=== PATIENT | female | born 1980 | race African-American/Black ===

== ENCOUNTER 2018-03-27 08:22 | Emergency (ER) | payer SELFPAY ==
[2018-03-27] MEDS ORDERED: HYDROCODONE/CHLORPHEN 5 ML/OSYR ONE (08:56)
[2018-03-27 09:11] LABS: Urine Blood 3+ (NEG); Urine Glucose NEGATIVE (NEG); Urine Protein NEGATIVE (NEG)
--- NOTE | 2018-03-27 09:44 | ER ---
Nurse's Notes [facility] Name: Rosa M Magallanes Age: 37 yrs Sex: Female : 1980 Arrival Date: 03/27/2018 Time: 08:25 Bed 15 Private MD: None, None Diagnosis: Acute bronchitis, unspecified Presentation: 03/27 08:30 Presenting complaint: Patient states: productive cough, nasal congestion, mild headache ss with dizziness and ear aches that began 1.5 weeks ago. Pt denies fever. Transition of care: patient was not received from another setting of care. Onset of symptoms. Risk Assessment: Do you want to hurt yourself or someone else? Patient reports no desire to harm self or others. Initial Sepsis Screen: Does the patient meet any 2 criteria? No. Patient's initial sepsis screen is negative. Does the patient have a suspected source of infection? No. Patient's initial sepsis screen is negative. Care prior to arrival: None. 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 - Social history:: Smoking status: Patient uses tobacco products, denies chronic smoking, but will smoke occasionally. - Ebola Screening: : Patient denies exposure to infectious person Patient denies travel to an Ebola-affected area in the 21 days before illness onset. Screenin:30 Abuse screen: Denies threats or abuse. Nutritional screening: No deficits noted. rb1 Tuberculosis screening: No symptoms or risk factors identified. Fall Risk None identified. Assessment: 08:30 General: Appears uncomfortable, Behavior is calm, cooperative, Reports feeling ill for rb1 Denies fever. Pain: Complains of pain in sore throat Pain currently is 0 out of 10 on a pain scale. Pain began 1.5 weeks ago. Pt. only has pain in her ribs while coughing. Neuro: Level of Consciousness is awake, alert, obeys commands, Oriented to person, place, time, situation. Cardiovascular: Capillary refill < 3 seconds is brisk in bilateral fingers. Respiratory: Reports cough that is productive, green Airway is patent Respiratory effort is even, unlabored, Respiratory pattern is regular, symmetrical. GI: Reports diarrhea, nausea, vomiting, since x 2 days. : No signs and/or symptoms were reported regarding the genitourinary system. EENT: Reports nasal congestion since 1.5 weeks. Derm: Skin is dry, Skin is normal, Skin temperature is warm. 09:30 Reassessment: Patient appears in no apparent distress at this time. No changes from rb1 previously documented assessment. Family at bedside. 10:14 Reassessment: Patient appears in no apparent distress at this time. Patient and/or rb1 family updated on plan of care and expected duration. Pain level reassessed. Patient is alert, oriented x 3, equal unlabored respirations, skin warm/dry/pink. Vital Signs: 08:32 BP 142 / 101; Pulse 90; Resp 17; Temp 98.8(O); Pulse Ox 100% on R/A; Weight 71.67 kg; ss Height 5 ft. 4 in. (162.56 cm); Pain 0/10; 08:46 BP 136 / 94; Pulse 90; Resp 17; Pulse Ox 100% on R/A; rb1 09:46 BP 125 / 96; Pulse 83; Resp 19; Pulse Ox 99% on R/A; rb1 08:32 Body Mass Index 27.12 (71.67 kg, 162.56 cm) ED Course: 08:25 Patient arrived in ED. sb2 08:25 None, None is Private Physician. sb2 08:26 Willam Alcantar PA is PHCP. cp 08:29 Chris Bansal MD is Attending Physician. cp 08:30 Patient has correct armband on for positive identification. Bed in low position. Call rb1 light in reach. Side rails up X 1. Pulse ox on. NIBP on. 08:31 Triage completed. ss 08:32 Nenita Díaz, RN is Primary Nurse. rb1 08:32 Arm band placed on right wrist. ss 08:53 Flu and/or RSV swab sent to lab. Strep swab sent to lab. dh3 09:07 Urine collected: clean catch specimen, clear. dh3 11:28 No provider procedures requiring assistance completed. Patient did not have IV access rb1 during this emergency room visit. Administered Medications: 09:15 Drug: Tussionex Pennkinetic ER 5 ml Route: PO; rb1 Outcome: 09:44 Discharge ordered by . cp 10:16 Patient left the ED. rb1 10:16 Discharged to home ambulatory, with family. rb1 10:16 Condition: stable 10:16 Discharge instructions given to patient, Instructed on discharge instructions, follow up and referral plans. medication usage, Demonstrated understanding of instructions, follow-up care, medications, Prescriptions given X 3. Signatures: Marisel Capone, RN RN ss Willam Alcantar, KELLIE PA Nenita Casarez, RN RN rb1 Vani Wick 3 Deedee Mcgarry 2
--- NOTE | 2018-03-27 09:44 | EDPHYS ---
Physician Documentation [facility] Name: Rosa M Magallanes Age: 37 yrs Sex: Female : 1980 Arrival Date: 03/27/2018 Time: 08:25 Bed 15 Private MD: None, None ED Physician Chris Bansal HPI: 03/27 08:40 This 37 yrs old Black Female presents to ER via Ambulatory with complaints of Flu cp Symptoms. 08:40 The patient or guardian reports cough, described as moderate, with productive sputum. cp 08:40 Onset: The symptoms/episode began/occurred 1.5 week(s) ago. Associated signs and cp symptoms: Pertinent positives: chest pain, with cough, earache, sore throat, headache. Severity of symptoms: in the emergency department the symptoms are unchanged despite home interventions. 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 - Social history:: Smoking status: Patient uses tobacco products, denies chronic smoking, but will smoke occasionally. - Ebola Screening: : Patient denies exposure to infectious person Patient denies travel to an Ebola-affected area in the 21 days before illness onset. ROS: 08:40 Eyes: Negative for injury, pain, redness, and discharge. cp 08:40 Constitutional: Negative for body aches, chills, fever, poor PO intake. 08:40 ENT: Positive for ear pain, sinus congestion, sore throat, Negative for drainage from ear(s), difficulty swallowing, difficulty handling secretions. 08:40 Neck: Negative for pain with movement, pain at rest, stiffness, tenderness. 08:40 Cardiovascular: Negative for chest pain. 08:40 Respiratory: Positive for cough, Negative for shortness of breath, wheezing. 08:40 Abdomen/GI: Negative for abdominal pain, nausea, vomiting, and diarrhea. 08:40 : Negative for urinary symptoms. 08:40 Skin: Negative for cellulitis, rash. 08:40 Neuro: Positive for headache, Negative for altered mental status, weakness. 08:40 All other systems are negative. Exam: 08:52 Constitutional: The patient appears in no acute distress, alert, awake, non-toxic, well cp developed, well nourished. 08:52 Head/Face: Normocephalic, atraumatic. cp 08:52 Eyes: Periorbital structures: appear normal, Conjunctiva: normal, no exudate, no injection, Sclera: no appreciated abnormality, Lids and lashes: appear normal, bilaterally. 08:52 ENT: External ear(s): are unremarkable, Ear canal(s): are normal, clear, TM's: bulging, is not appreciated, bilaterally, erythema, that is mild, bilaterally, Nose: is normal, Posterior pharynx: is normal, airway is patent, no erythema, no exudate. 08:52 Neck: ROM/movement: is normal, is supple, without pain, no range of motions limitations, no meningismus, no nuchal rigidity. 08:52 Chest/axilla: Inspection: normal, Palpation: is normal, no crepitus, no tenderness. 08:52 Cardiovascular: Rate: normal, Rhythm: regular. 08:52 Respiratory: the patient does not display signs of respiratory distress, Respirations: normal, no use of accessory muscles, no retractions, no splinting, no tachypnea, labored breathing, is not present, Breath sounds: bronchial sounds, that are mild, are heard diffusely, stridor, is not appreciated, + upper airway congestion. wheezing: is not appreciated. 08:52 Abdomen/GI: Exam negative for discomfort, distension, guarding, Inspection: abdomen appears normal. 08:52 Skin: cellulitis, is not appreciated, no rash present. Vital Signs: 08:32 BP 142 / 101; Pulse 90; Resp 17; Temp 98.8(O); Pulse Ox 100% on R/A; Weight 71.67 kg; ss Height 5 ft. 4 in. (162.56 cm); Pain 0/10; 08:46 BP 136 / 94; Pulse 90; Resp 17; Pulse Ox 100% on R/A; rb1 09:46 BP 125 / 96; Pulse 83; Resp 19; Pulse Ox 99% on R/A; rb1 08:32 Body Mass Index 27.12 (71.67 kg, 162.56 cm) ss MDM: 08:33 Patient medically screened. cp 09:00 Differential diagnosis: bronchitis, flu, URI, pneumonia, strep throat, otitis media. cp 09:44 Data reviewed: vital signs, nurses notes, lab test result(s), and as a result, I will cp discharge patient. 09:44 Counseling: I had a detailed discussion with the patient and/or guardian regarding: the cp historical points, exam findings, and any diagnostic results supporting the discharge/admit diagnosis, lab results, to return to the emergency department if symptoms worsen or persist or if there are any questions or concerns that arise at home. Response to treatment: the patient's symptoms have markedly improved after treatment, and as a result, I will discharge patient. 03/27 08:39 Order name: Strep; Complete Time: 09:43 cp 03/27 08:39 Order name: Influenza Screen (a \T\ B); Complete Time: 09:43 cp 03/27 09:08 Order name: Urine Dipstick--Ancillary (enter results); Complete Time: 09:43 eb 03/27 09:43 Interpretation: Normal except: UBLD 3+; UESTR TRACE. cp 03/27 09:08 Order name: Urine --Ancillary (enter results); Complete Time: 09:43 eb 03/27 09:13 Order name: Throat Culture EDOH 03/27 08:39 Order name: Urine Dipstick-Ancillary (obtain specimen); Complete Time: 09:08 cp 03/27 08:39 Order name: Urine Test (obtain specimen); Complete Time: 09:08 cp Administered Medications: 09:15 Drug: Tussionex Pennkinetic ER 5 ml Route: PO; rb1 Disposition: 13:00 Co-signature as Attending Physician, Chris Bansal MD. rn Disposition: 03/27/18 09:44 Discharged to Home. Impression: Acute bronchitis, unspecified. - Condition is Stable. - Discharge Instructions: Acute Bronchitis, Adult. - Prescriptions for Tessalon Perles 100 mg Oral Capsule - take 1 capsule by ORAL route every 8 hours As needed; 15 capsule. Zithromax Z- Carlos 250 mg Oral Tablet - take 1 tablet by ORAL route as directed for 5 days Day 1 - take two (2) tablets one time. Day 2, 3, 4 , 5 take one (1) tablet once daily.; 6 tablet. Albuterol Sulfate 90 mcg/actuation - inhale 1-2 puff by INHALATION route every 4-6 hours; 1 Inhaler. - Medication Reconciliation Form, Thank You Letter, Antibiotic Education, Prescription Opioid Use form. - Follow up: Private Physician; When: 2 - 3 days; Reason: Recheck today's complaints. - Problem is new. - Symptoms have improved. Signatures: Dispatcher [employer] EDMS Chris Bansal MD MD rn Smirch, Shelby, RN RN ss Willam Alcantar PA PA cp Nenita Díaz RN RN rb1 Corrections: (The following items were deleted from the chart) 10:16 09:44 03/27/2018 09:44 Discharged to Home. Impression: Acute bronchitis, unspecified. rb1 Condition is Stable. Forms are Medication Reconciliation Form, Thank You Letter, Antibiotic Education, Prescription Opioid Use. Follow up: Private Physician; When: 2 - 3 days; Reason: Recheck today's complaints. Problem is new. Symptoms have improved. cp
[2018-03-27 10:22] VITALS: TEMP 98.8; O2SAT 100
[2018-03-27 10:23] VITALS: BP 136/94
== END 2018-03-27 10:16 | disposition home or self-care (01) ==
LOC: ER 08:22
DX: J20.9 Acute bronchitis, unspecified (principal); I10 Essential (primary) hypertension; Z91.048 Other nonmedicinal substance allergy status
CPT/HCPCS: 81003; 81025; 87070; 87081; 87804; 99284

== ENCOUNTER 2018-06-30 10:54 | Emergency (ER) | payer SELFPAY ==
--- NOTE | 2018-06-30 11:49 | EDPHYS ---
Physician Documentation [facility] Name: Rosa M Magallanes Age: 38 yrs Sex: Female : 1980 Arrival Date: 06/30/2018 Time: 10:58 Bed 24 Private MD: None, None ED Physician Guerrero Benavides HPI: 06/30 11:27 This 38 yrs old Black Female presents to ER via Ambulatory with complaints of Sinus gs Congestion. 11:27 The patient or guardian reports sinus congestion drainage. Onset: The symptoms/episode gs began/occurred 3 day(s) ago. Severity of symptoms: At their worst the symptoms were moderate, in the emergency department the symptoms are unchanged. Modifying factors: The symptoms are alleviated by nothing, the symptoms are aggravated by nothing. Associated signs and symptoms: Pertinent positives: fever. The patient has experienced similar episodes in the past, several times. 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 - Social history:: Smoking status: Patient uses tobacco products, denies chronic smoking, but will smoke occasionally. - Ebola Screening: : Patient denies exposure to infectious person Patient denies travel to an Ebola-affected area in the 21 days before illness onset. ROS: 11:43 All other systems are negative. gs Exam: 11:43 Head/Face: Normocephalic, atraumatic. Eyes: Pupils equal round and reactive to light, gs extra-ocular motions intact. Lids and lashes normal. Conjunctiva and sclera are non-icteric and not injected. Cornea within normal limits. Periorbital areas with no swelling, redness, or edema. Neck: Trachea midline, no thyromegaly or masses palpated, and no cervical lymphadenopathy. Supple, full range of motion without nuchal rigidity, or vertebral point tenderness. No Meningismus. Chest/axilla: Normal chest wall appearance and motion. Nontender with no deformity. No lesions are appreciated. Cardiovascular: Regular rate and rhythm with a normal S1 and S2. No gallops, murmurs, or rubs. Normal PMI, no JVD. No pulse deficits. Respiratory: Lungs have equal breath sounds bilaterally, clear to auscultation and percussion. No rales, rhonchi or wheezes noted. No increased work of breathing, no retractions or nasal flaring. Abdomen/GI: Soft, non-tender, with normal bowel sounds. No distension or tympany. No guarding or rebound. No evidence of tenderness throughout. Back: No spinal tenderness. No costovertebral tenderness. Full range of motion. MS/ Extremity: Pulses equal, no cyanosis. Neurovascular intact. Full, normal range of motion. Neuro: Awake and alert, GCS 15, oriented to person, place, time, and situation. Cranial nerves II-XII grossly intact. Motor strength 5/5 in all extremities. Sensory grossly intact. Cerebellar exam normal. Normal gait. 11:43 Constitutional: The patient appears alert, awake, non-toxic. 11:43 ENT: TM's: are normal, Nose: Nasal mucosa: edematous, erythematous, nasal drainage, and is seen coming from both nares, that is green. 11:43 Skin: lesion(s), diffuse epithelial sarcoid. 11:49 Head/face: Sinus tenderness, that is moderate, is located over the right maxillary gs sinus and left maxillary sinus. 11:49 ENT: Nose: Vital Signs: 11:20 BP 132 / 89; Pulse 82; Resp 17; Temp 98.5(TE); Pulse Ox 100% on R/A; Weight 68.49 kg; ss Height 5 ft. 4 in. (162.56 cm); Pain 6/10; 11:20 Body Mass Index 25.92 (68.49 kg, 162.56 cm) MDM: 11:26 Patient medically screened. gs 11:43 Differential Diagnosis: Upper Respiratory Infection Sinusitis. Data reviewed: vital gs signs, nurses notes. 11:49 ED course: abx given for sinusitis in immunocompromised pt. gs Administered Medications: No medications were administered Disposition: 18 11:48 Discharged to Home. Impression: Acute sinusitis. - Condition is Stable. - Discharge Instructions: Sinusitis, Adult. - Prescriptions for Ceftin 500 mg Oral Tablet - take 1 tablet by ORAL route every 12 hours for 10 days; 20 tablet. - Medication Reconciliation Form, Thank You Letter, Antibiotic Education, Prescription Opioid Use form. - Follow up: Verito Wick MD; When: 2 - 3 days; Reason: Re-evaluation by your physician. Signatures: Cece Conley RN RN iw Marisel Capone RN RN ss Guerrero Benavides MD MD gs Corrections: (The following items were deleted from the chart) 11:55 11:48 06/30/2018 11:48 Discharged to Home. Impression: Acute sinusitis. Condition is iw Stable. Forms are Medication Reconciliation Form, Thank You Letter, Antibiotic Education, Prescription Opioid Use. Follow up: Verito Wick; When: 2 - 3 days; Reason: Re-evaluation by your physician. gs
--- NOTE | 2018-06-30 11:49 | ER ---
Nurse's Notes [facility] Name: Rosa M Magallanes Age: 38 yrs Sex: Female : 1980 Arrival Date: 06/30/2018 Time: 10:58 Bed 24 Private MD: None, None Diagnosis: Acute sinusitis Presentation: 06/30 11:21 Presenting complaint: Patient states: "I always have sinus problems, but now I think ss it's staph or something because I have greenish-yellow drainage with a little blood in it that just drains" denies fever. Transition of care: patient was not received from another setting of care. Onset of symptoms is unknown. Risk Assessment: Do you want to hurt yourself or someone else? Patient reports no desire to harm self or others. Initial Sepsis Screen: Does the patient meet any 2 criteria? No. Patient's initial sepsis screen is negative. Does the patient have a suspected source of infection? No. Patient's initial sepsis screen is negative. Care prior to arrival: None. 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 - Social history:: Smoking status: Patient uses tobacco products, denies chronic smoking, but will smoke occasionally. - Ebola Screening: : Patient denies exposure to infectious person Patient denies travel to an Ebola-affected area in the 21 days before illness onset. Screenin:40 Abuse screen: Denies threats or abuse. Denies injuries from another. Nutritional iw screening: No deficits noted. Tuberculosis screening: No symptoms or risk factors identified. Fall Risk None identified. Assessment: 11:40 General: Appears in no apparent distress. Behavior is calm, cooperative. Pain: iw Complains of pain in face. Neuro: Level of Consciousness is awake, alert, obeys commands, Oriented to person, place, time, situation, Moves all extremities. Full function. EENT: Reports nasal congestion nasal discharge. Musculoskeletal: Range of motion: intact in all extremities. Vital Signs: 11:20 BP 132 / 89; Pulse 82; Resp 17; Temp 98.5(TE); Pulse Ox 100% on R/A; Weight 68.49 kg; Height 5 ft. 4 in. (162.56 cm); Pain 6/10; 11:20 Body Mass Index 25.92 (68.49 kg, 162.56 cm) ED Course: 10:58 Patient arrived in ED. mr 10:58 None, None is Private Physician. mr 11:15 Guerrero Benavides MD is Attending Physician. gs 11:20 Arm band placed on right wrist. ss 11:22 Triage completed. ss 11:40 Cece Conley, RN is Primary Nurse. iw 11:40 Patient has correct armband on for positive identification. iw 11:40 No provider procedures requiring assistance completed. Patient did not have IV access iw during this emergency room visit. 11:48 Verito Wick MD is Referral Physician. gs Administered Medications: No medications were administered Outcome: 11:48 Discharge ordered by . gs 11:54 Discharged to home ambulatory, with family. iw 11:54 Condition: good 11:54 Discharge instructions given to patient, Instructed on discharge instructions, follow up and referral plans. medication usage, Demonstrated understanding of instructions, follow-up care, medications, Prescriptions given X 1. 11:55 Patient left the ED. iw Signatures: Lyndsey Mcghee mr Cece Conley, RN ARY Marisel Capone RN RN Guerrero Benavides MD MD gs
[2018-06-30 12:49] VITALS: BP 132/89; TEMP 98.5; O2SAT 100
== END 2018-06-30 11:55 | disposition home or self-care (01) ==
LOC: ER 10:54
DX: J01.90 Acute sinusitis, unspecified (principal); I10 Essential (primary) hypertension; Z72.0 Tobacco use; Z91.048 Other nonmedicinal substance allergy status
CPT/HCPCS: 99282

== ENCOUNTER 2018-09-27 08:55 | Emergency (ER) | payer SELFPAY ==
[2018-09-27 09:35] LABS: Urine Blood 3+ (NEG); Urine Glucose NEGATIVE (NEG); Urine Protein 2+ (NEG)
[2018-09-27] MEDS ORDERED: FLUCONAZOLE 100 MG TAB ONE (10:02)
[2018-09-27 10:17] LABS: Urine RBC >50 /HPF (NONE SEEN)
[2018-09-27 10:22] LABS: Urine Bacteria 20-50 /HPF (<20); Urine Culture Reflex Order NOT NEEDED
[2018-09-27] MEDS ORDERED: CEFTRIAXONE 250 MG/VIAL ONE (11:02)
[2018-09-27] MEDS ORDERED: LIDOCAINE 1% MPF 2 ML AMPULE ONE (11:02)
[2018-09-27] MEDS ORDERED: AZITHROMYCIN 250 MG TAB ONE (11:02)
--- NOTE | 2018-09-27 11:19 | ER ---
Nurse's Notes [facility] Name: Rosa M Magallanes Age: 38 yrs Sex: Female : 1980 Arrival Date: 09/27/2018 Time: 08:58 Bed 7 Private MD: None, None Diagnosis: Abdominal and pelvic pain;Vaginitis, vulvitis and vulvovaginitis in diseases classified elsewhere;Urinary tract infection, site not specified Presentation: 09/27 09:06 Presenting complaint: Patient states: pain to the middle of my stomach that radiates ch into my lady parts for over a month. about 4 days ago my lady parts started hurting, and itching. yesterday there was some blood, and my stomach hurts and the pain is like a stabbing pain from the middle of my stomach into my lady parts, so I thought I would get it checked today. 09:06 Transition of care: patient was not received from another setting of care. Onset of ch symptoms was August 2018. Risk Assessment: Do you want to hurt yourself or someone else? Patient reports no desire to harm self or others. Initial Sepsis Screen: Does the patient meet any 2 criteria? No. Patient's initial sepsis screen is negative. Does the patient have a suspected source of infection? No. Patient's initial sepsis screen is negative. Care prior to arrival: None. 09:06 Method Of Arrival: Ambulatory 09:06 Acuity: EUGENIA 3 ch Triage Assessment: 09:06 General: Appears in no apparent distress. comfortable, Behavior is calm, cooperative, ch appropriate for age. Pain: Complains of pain in abdomen, vaginal opening and suprapubic area Pain currently is 6 out of 10 on a pain scale. Pain began gradually, one month ago. GI: Abdomen is round non-distended, Bowel sounds present X 4 quads. Abd is soft and non tender X 4 quads. Reports lower abdominal pain. : Reports cramping, pain vaginal itching, vaginal bleeding that is. 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 - Social history:: Smoking status: Patient uses tobacco products, denies chronic smoking, but will smoke occasionally, Patient uses alcohol, on a daily basis. Patient/guardian denies using street drugs. - Ebola Screening: : Patient negative for fever greater than or equal to 101.5 degrees Fahrenheit, and additional compatible Ebola Virus Disease symptoms Patient denies exposure to infectious person Patient denies travel to an Ebola-affected area in the 21 days before illness onset No symptoms or risks identified at this time. Screenin:26 Abuse screen: Denies threats or abuse. Denies injuries from another. Nutritional ch screening: No deficits noted. Tuberculosis screening: No symptoms or risk factors identified. Fall Risk None identified. Assessment: 09:26 General: Appears in no apparent distress. comfortable, Behavior is calm, cooperative, ch appropriate for age. 10:53 Reassessment: Patient appears in no apparent distress at this time. No changes from previously documented assessment. Patient and/or family updated on plan of care and expected duration. Pain level reassessed. Patient is alert, oriented x 3, equal unlabored respirations, skin warm/dry/pink. 11:19 Reassessment: Patient appears in no apparent distress at this time. Patient and/or family updated on plan of care and expected duration. Pain level reassessed. Patient is alert, oriented x 3, equal unlabored respirations, skin warm/dry/pink. Patient states feeling better. Patient states symptoms have improved. Vital Signs: 09:06 BP 118 / 88; Pulse 84; Resp 16; Temp 98.2; Pulse Ox 100% on R/A; Weight 70.76 kg; Height 5 ft. 4 in. (162.56 cm); Pain 6/10; 10:53 BP 122 / 78; Pulse 74; Resp 18; Temp 98.3; Pulse Ox 99% on R/A; Pain 6/10; ch 11:27 BP 118 / 88; Pulse 71; Resp 16; Temp 98.3; Pulse Ox 99% on R/A; Pain 5/10; ch 09:06 Body Mass Index 26.78 (70.76 kg, 162.56 cm) ED Course: 08:58 Patient arrived in ED. mr 08:58 None, None is Private Physician. mr 09:06 Arm band placed on left wrist. Patient placed in an exam room, on a stretcher. 09:07 Yahir Lira PA is PHCP. [facility] 09:07 Chris Bansal MD is Attending Physician. [facility] 09:17 Elsie Byrne, RN is Primary Nurse. 09:19 Triage completed. 09:21 Urine collected: clean catch specimen, cloudy, skye colored. jb1 09:26 Patient has correct armband on for positive identification. Placed in gown. Bed in low ch position. Call light in reach. Side rails up X 1. Adult w/ patient. Pulse ox on. NIBP on. Warm blanket given. 10:53 Assist provider with pelvic exam: Set up pelvic tray. Performed by Yahir HOPKINS Specimens sent to lab. Patient tolerated well. 11:18 Rebecca Sandoval MD is Referral Physician. [facility] 11:27 Patient did not have IV access during this emergency room visit. ch Administered Medications: 10:00 Drug: DiFLUcan 150 mg Route: PO; 11:26 Follow up: Response: No adverse reaction 11:00 Drug: Rocephin (cefTRIAXone) 250 mg Route: IM; Site: right ventrogluteal; 11:26 Follow up: Response: No adverse reaction 11:18 Drug: AZITHromycin 1 grams Route: PO; 11:26 Follow up: Response: No adverse reaction Outcome: 11:18 Discharge ordered by MD. [facility] 11:27 Discharged to home ambulatory, with family. 11:27 Condition: improved 11:27 Discharge instructions given to patient, family, Instructed on discharge instructions, follow up and referral plans. medication usage, Demonstrated understanding of instructions, follow-up care, medications, Prescriptions given X 1. 11:28 Patient left the ED. Signatures: Marco Jean-Baptiste jb1 Elsie Byrne, RN RN Yahir Lira PA PA jmm Lyndsey Mcghee mr
--- NOTE | 2018-09-27 11:19 | EDPHYS ---
Physician Documentation [facility] Name: Rosa M Magallanes Age: 38 yrs Sex: Female : 1980 Arrival Date: 09/27/2018 Time: 08:58 Bed 7 Private MD: None, None ED Physician Chris Bansal HPI: 09/27 09:10 This 38 yrs old Black Female presents to ER via Ambulatory with complaints of Vaginal jmm Itching, Abdominal Pain. 09:10 The patient presents with pelvic pain, vaginal discharge. Onset: The symptoms/episode jmm began/occurred gradually, 2 month(s) ago. Modifying factors: The symptoms are alleviated by nothing, the symptoms are aggravated by nothing. This is a 38 year old female with a history of htn, sarcoidosis that presents to the ED with complaints of pelvic pain over the past 2 months ago. Saw pcp with us showing ovarian cysts. Patient complaints of dysuria and vaginal itching with discharge. . 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 - Social history:: Smoking status: Patient uses tobacco products, denies chronic smoking, but will smoke occasionally, Patient uses alcohol, on a daily basis. Patient/guardian denies using street drugs. - Ebola Screening: : Patient negative for fever greater than or equal to 101.5 degrees Fahrenheit, and additional compatible Ebola Virus Disease symptoms Patient denies exposure to infectious person Patient denies travel to an Ebola-affected area in the 21 days before illness onset No symptoms or risks identified at this time. ROS: 11:14 Constitutional: Negative for fever, chills, and weight loss, Cardiovascular: Negative jmm for chest pain, palpitations, and edema, Respiratory: Negative for shortness of breath, cough, wheezing, and pleuritic chest pain. 11:14 : Positive for urinary symptoms, pelvic pain, vaginal discharge, vaginal itching. 11:14 All other systems are negative. Exam: 11:14 Constitutional: This is a well developed, well nourished patient who is awake, alert, jmm and in no acute distress. Head/Face: atraumatic. Eyes: EOMI, no conjunctival erythema appreciated ENT: Moist Mucus Membranes Neck: Trachea midline, Supple Chest/axilla: Normal chest wall appearance and motion. Cardiovascular: Regular rate and rhythm. No edema appreciated Respiratory: Normal respirations, no respiratory distress appreciated 11:14 Skin: General appearance color normal MS/ Extremity: Moves all extremities, no obvious deformities appreciated, no edema noted to the lower extremities Neuro: Awake and alert, normal gait Psych: Behavior is normal, Mood is normal, Patient is cooperative and pleasant 11:14 Abdomen/GI: Inspection: abdomen appears normal, Palpation: soft, mild abdominal tenderness, in the suprapubic area, voluntary guarding, is not appreciated, involuntary guarding, is not appreciated, Indicators: McBurney's point is not tender, Rovsing's sign is negative, suprapubic tenderness on palpation. 11:14 Back: CVA tenderness, is absent. 11:14 : Pelvic Exam: External exam: is normal, Speculum exam: os that is closed, bimanual exam reveals no cervical motion tenderness, os that is closed, no adnexa tenderness or masses bilaterally. Vital Signs: 09:06 BP 118 / 88; Pulse 84; Resp 16; Temp 98.2; Pulse Ox 100% on R/A; Weight 70.76 kg; ch Height 5 ft. 4 in. (162.56 cm); Pain 6/10; 10:53 BP 122 / 78; Pulse 74; Resp 18; Temp 98.3; Pulse Ox 99% on R/A; Pain 6/10; ch 11:27 BP 118 / 88; Pulse 71; Resp 16; Temp 98.3; Pulse Ox 99% on R/A; Pain 5/10; ch 09:06 Body Mass Index 26.78 (70.76 kg, 162.56 cm) ch MDM: 09:28 Patient medically screened. [facility] 11:14 Data reviewed: vital signs, nurses notes. Counseling: I had a detailed discussion with deepa the patient and/or guardian regarding: the historical points, exam findings, and any diagnostic results supporting the discharge/admit diagnosis, lab results. ED course: Bimanual exam normal. Patient treated with empiric antibiotics due to symptomatology. Patient advised to follow up with obgyn, otherwise advised to return to the ED if she develops worsening symptoms. Patient understood and agrees with the plan of care. . 09/27 09:21 Order name: Urine Culture banner 09/27 09:21 Order name: Urine Microscopic Only; Complete Time: 10:28 banner 09/27 09:23 Order name: Urine Dipstick--Ancillary (enter results); Complete Time: 09:37 09/27 09:23 Order name: Urine --Ancillary (enter results); Complete Time: 09:37 09/27 10:17 Order name: Wet Prep [facility] 09/27 10:17 Order name: GC (GONORR/CHLAMYDIA) Probe [facility] 09/27 09:10 Order name: Urine Dipstick-Ancillary (obtain specimen); Complete Time: 09:21 [facility] 09/27 09:10 Order name: Urine Test (obtain specimen); Complete Time: 09:21 [facility] 09/27 09:52 Order name: Pelvic Exam Setup; Complete Time: 11:19 [facility] Administered Medications: 10:00 Drug: DiFLUcan 150 mg Route: PO; ch 11:26 Follow up: Response: No adverse reaction 11:00 Drug: Rocephin (cefTRIAXone) 250 mg Route: IM; Site: right ventrogluteal; ch 11:26 Follow up: Response: No adverse reaction 11:18 Drug: AZITHromycin 1 grams Route: PO; ch 11:26 Follow up: Response: No adverse reaction Disposition: 14:26 Co-signature as Attending Physician, Chris Bansal MD. rn Disposition: 09/27/18 11:18 Discharged to Home. Impression: Abdominal and pelvic pain, Vaginitis, vulvitis and vulvovaginitis in diseases classified elsewhere, Urinary tract infection, site not specified. - Condition is Stable. - Discharge Instructions: Pelvic Pain, Female, Urinary Tract Infection, Adult. - Prescriptions for Cephalexin 500 mg Oral Capsule - take 1 capsule by ORAL route every 12 hours for 10 days; 20 capsule. - Medication Reconciliation Form, Thank You Letter, Antibiotic Education, Prescription Opioid Use form. - Follow up: Rebecca Sandoval MD; When: 2 - 3 days; Reason: Recheck today's complaints, Continuance of care, Re-evaluation by your physician. Signatures: Dispatcher [employer] Elsie Valladares, RN RN ch Yahir Lira PA PA [facility] Chris Bansal MD MD corner bead operator: (The following items were deleted from the chart) 11:14 09:10 This is a 38 year old female with a history of htn, sarcoidosis that presents to [facility] the ED with complaints of pelvic pain over the past 2 months ago. Saw pcp with us showing ovarian cysts. Patient complaints of . [facility] 11:28 11:18 09/27/2018 11:18 Discharged to Home. Impression: Abdominal and pelvic pain; ch Vaginitis, vulvitis and vulvovaginitis in diseases classified elsewhere; Urinary tract infection, site not specified. Condition is Stable. Forms are Medication Reconciliation Form, Thank You Letter, Antibiotic Education, Prescription Opioid Use. Follow up: Mini Rekhi; When: 2 - 3 days; Reason: Recheck today's complaints, Continuance of care, Re-evaluation by your physician. [facility]
[2018-09-27 11:33] VITALS: TEMP 98.3; O2SAT 99
[2018-09-27 11:34] VITALS: BP 118/88
[2018-09-30 05:30] LABS: C.trachomatis RNA,TMA Not Detected (Not Detected)
== END 2018-09-27 11:28 | disposition home or self-care (01) ==
LOC: ER 08:55
DX: N76.0 Acute vaginitis (principal); N39.0 Urinary tract infection, site not specified; Z88.8 Allergy status to other drugs, medicaments and biological substances; I10 Essential (primary) hypertension
CPT/HCPCS: 81003; 81015; 81025; 87086; 87088; 87210; 87490; 87590; 96372; 99284; J0696; J2001

== ENCOUNTER 2018-12-17 15:08 | Emergency (ER) | payer SELFPAY ==
--- NOTE | 2018-12-17 16:17 | EDPHYS ---
Physician Documentation [facility] Name: Rosa M Magallanes Age: 38 yrs Sex: Female : 1980 Arrival Date: 12/17/2018 Time: 15:12 Bed 18 Private MD: Unknown, Unknown ED Physician Chris Bansal HPI: 12/17 16:11 This 38 yrs old Black Female presents to ER via Ambulatory with complaints of KNOT ON rn EYE/STOMACH. 16:11 The patient is experiencing pain, The patient sustained None. to the left eye. Onset: rn The symptoms/episode began/occurred 2.5 week(s) ago. Duration: the symptoms are continuous. Aggravated by rubbing, Alleviated by nothing. Severity of symptoms: At their worst the symptoms were mild in the emergency department the symptoms are unchanged. The patient has not experienced similar symptoms in the past. Reports has sarcoidosis, has noticed what looks like a stye to left upper eyelid, began 2.5 weeks ago, no trauma, no vision problems, reports took some abx ointment from friend without improvement. Has poked it with a needle and didn't see an improvement. Also reports noticed a knot to her stomach around the same time, no abd surgeries, no vomiting, no fever, is having bowel movements without blood.. 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 - Family history:: not pertinent. - Social history:: Smoking status: Patient/guardian denies using tobacco. - Ebola Screening: : Patient negative for fever greater than or equal to 101.5 degrees Fahrenheit, and additional compatible Ebola Virus Disease symptoms Patient denies exposure to infectious person Patient denies travel to an Ebola-affected area in the 21 days before illness onset No symptoms or risks identified at this time. - Hospitalizations: : No recent hospitalization is reported. ROS: 16:11 Constitutional: Negative for fever, chills, and weight loss, Eyes: Negative for injury, rn redness, and discharge, Cardiovascular: Negative for chest pain, palpitations, and edema, Respiratory: Negative for shortness of breath, cough, wheezing, and pleuritic chest pain, Abdomen/GI: Negative for nausea, vomiting, diarrhea MS/Extremity: Negative for injury and deformity, Skin: Negative for injury, rash, and discoloration, Neuro: Negative for headache, weakness, numbness, tingling, and seizure. Exam: 16:11 Constitutional: This is a well developed, well nourished patient who is awake, alert, rn and in no acute distress. Head/Face: Normocephalic, atraumatic. Eyes: Left upper outer eyelid with swelling, no drainage or corneal problems. Abdomen/GI: soft, non-tender, + right periumbilical small reducible hernia without skin changes. Vital Signs: 15:28 BP 114 / 75; Pulse 104; Resp 18; Temp 97.9(O); Pulse Ox 100% on R/A; Weight 71.67 kg; hj Height 5 ft. 4 in. (162.56 cm); Pain 4/10; 15:28 Body Mass Index 27.12 (71.67 kg, 162.56 cm) hj MDM: 15:55 Patient medically screened. rn 16:11 Differential diagnosis: stye, eyelid mass, hernia. Data reviewed: vital signs, nurses rn notes, and as a result, I will discharge patient. Counseling: I had a detailed discussion with the patient and/or guardian regarding: the historical points, exam findings, and any diagnostic results supporting the discharge/admit diagnosis, the need for outpatient follow up, to return to the emergency department if symptoms worsen or persist or if there are any questions or concerns that arise at home. Special discussion: I discussed with the patient/guardian in detail that at this point there is no indication for admission to the hospital. It is understood, however, that if the symptoms persist or worsen the patient needs to return immediately for re-evaluation. Based on the history and exam findings, there is no indication for further emergent testing or inpatient evaluation. I discussed with the patient/guardian the need to see the general surgeon for further evaluation of the symptoms. I discussed with the patient/guardian the need to see the opthamologist for further evaluation of the symptoms. ED course: Recommended to stop poking eyelid mass with needle and f/u with ophtho for that, as well as general surgery for hernia. . Administered Medications: No medications were administered Disposition: 12/17/18 16:16 Discharged to Home. Impression: Umbilical hernia without obstruction or gangrene. - Condition is Stable. - Discharge Instructions: Hernia, Adult. - Medication Reconciliation Form, Thank You Letter, Antibiotic Education, Prescription Opioid Use form. - Follow up: Private Physician; When: As needed; Reason: Recheck today's complaints, Re-evaluation by your physician. - Problem is new. - Symptoms have improved. Signatures: Wilma Brooks RN RN aj Nieto, Roman, MD MD rn Joaquin, Henry, RN RN Corrections: (The following items were deleted from the chart) 16:21 16:16 12/17/2018 16:16 Discharged to Home. Impression: Umbilical hernia without aj obstruction or gangrene. Condition is Stable. Forms are Medication Reconciliation Form, Thank You Letter, Antibiotic Education, Prescription Opioid Use. Follow up: Private Physician; When: As needed; Reason: Recheck today's complaints, Re-evaluation by your physician. Problem is new. Symptoms have improved. rn
--- NOTE | 2018-12-17 16:17 | ER ---
Nurse's Notes [facility] Name: Rosa M Magallanes Age: 38 yrs Sex: Female : 1980 Arrival Date: 12/17/2018 Time: 15:12 Bed 18 Private MD: Unknown, Unknown Diagnosis: Umbilical hernia without obstruction or gangrene Presentation: 12/17 15:26 Presenting complaint: Patient states: i have a know on my L eye for about 2 weeks now; hj denies discharges, denies fever and chill; reports a knot on her abdomen;. Transition of care: patient was not received from another setting of care. Onset of symptoms was December 17, 2018. Risk Assessment: Do you want to hurt yourself or someone else? Patient reports no desire to harm self or others. Initial Sepsis Screen: Does the patient meet any 2 criteria? No. Patient's initial sepsis screen is negative. Does the patient have a suspected source of infection? No. Patient's initial sepsis screen is negative. Care prior to arrival: None. 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 - Family history:: not pertinent. - Social history:: Smoking status: Patient/guardian denies using tobacco. - Ebola Screening: : Patient negative for fever greater than or equal to 101.5 degrees Fahrenheit, and additional compatible Ebola Virus Disease symptoms Patient denies exposure to infectious person Patient denies travel to an Ebola-affected area in the 21 days before illness onset No symptoms or risks identified at this time. - Hospitalizations: : No recent hospitalization is reported. Screenin:19 Abuse screen: Denies threats or abuse. Denies injuries from another. Nutritional aj screening: No deficits noted. Tuberculosis screening: No symptoms or risk factors identified. Fall Risk None identified. Assessment: 16:19 General: Appears in no apparent distress. comfortable, Behavior is calm, cooperative, aj appropriate for age. Pain: Denies pain. Neuro: Level of Consciousness is awake, alert, obeys commands, Oriented to person, place, time, situation, Appropriate for age. Respiratory: Airway is patent Respiratory effort is even, unlabored, Respiratory pattern is regular, symmetrical. Derm: Skin is intact, is healthy with good turgor, Skin is pink, warm \T\ dry. normal. Vital Signs: 15:28 BP 114 / 75; Pulse 104; Resp 18; Temp 97.9(O); Pulse Ox 100% on R/A; Weight 71.67 kg; hj Height 5 ft. 4 in. (162.56 cm); Pain 4/10; 15:28 Body Mass Index 27.12 (71.67 kg, 162.56 cm) ED Course: 15:12 Patient arrived in ED. ag5 15:13 Unknown, Unknown is Private Physician. ag5 15:28 Triage completed. hj 15:28 Arm band placed on right wrist. hj 15:55 Chris Bansal MD is Attending Physician. rn 16:19 Wilma Brooks RN is Primary Nurse. aj 16:19 Patient has correct armband on for positive identification. aj 16:19 No provider procedures requiring assistance completed. Patient did not have IV access aj during this emergency room visit. Administered Medications: No medications were administered Outcome: 16:16 Discharge ordered by . rn 16:19 Discharged to home ambulatory. aj 16:19 Condition: good 16:19 Discharge instructions given to patient, Instructed on discharge instructions, follow up and referral plans. Demonstrated understanding of instructions, follow-up care. 16:21 Patient left the ED. aj Signatures: Wilma Brooks, RN Chris Murillo MD MD rn Joaquin, Henry, RN RN hj Gaskin, Ajare [facility] Corrections: (The following items were deleted from the chart) 15:30 15:28 Pulse 104bpm; Resp 18bpm; Pulse Ox 100% RA; Temp 97.9F Oral; 71.67 kg; Height 5 hj ft. 4 in.; BMI: 27.1; Pain 4/10;
[2018-12-17 16:36] VITALS: BP 114/75; TEMP 97.9; O2SAT 100
== END 2018-12-17 16:21 | disposition home or self-care (01) ==
LOC: ER 15:08
DX: H57.12 Ocular pain, left eye (principal); K42.9 Umbilical hernia without obstruction or gangrene; I10 Essential (primary) hypertension; Z91.048 Other nonmedicinal substance allergy status
CPT/HCPCS: 99281

== ENCOUNTER 2019-02-06 15:17 | Emergency (ER) | payer SELFPAY ==
[2019-02-06 16:45] LABS: Absolute Lymphocytes (CBC) 1.1 K/uL (0.7-4.9); Basophils % 0.4 % (0-1.3); Hematocrit 31.8 % (36.0-45.0); Lymphocytes % 17.4 % (15.3-44.8); MPV 8.4 fL (7.6-11.3); RBC Red Blood Cell Count 4.46 M/uL (3.86-4.86)
--- NOTE | 2019-02-06 16:46 | RAD REPORT ---
EXAM DESCRIPTION: CT - Abdomen Pelvis Wo Contrast - 02/06/2019 4:28 pm CLINICAL HISTORY: Right upper quadrant pain, shortness of breath, sarcoidosis COMPARISON: None. TECHNIQUE: Axial [address] imaging of the abdomen and pelvis was performed without IV contrast. No IV contrast was given because of allergy, abnormal renal function, patient refusal or physician re quest. No oral contrast administered. All CT scans are performed using dose optimization technique as appropriate and may include automated exposure control or mA/KV adjustment according to patient size. FINDINGS: Interstitial thickening and stranding present in both lung bases, worse on the right. No c ardiomegaly or pericardial effusion. No pleural effusion. Hepatomegaly is present with a 29 centimeter craniocaudal length of the liver. Subtle nodularity of t he liver capsule seen. No focal liver lesions seen on noncontrast imaging. Splenomegaly is present to 23 cm. No focal splenic lesion on noncontrast imaging. No pancreatic abnormality suspected. Detail is limited due to the mass effect of the liver and spleen and the absence of contrast. Multiple small gallstones are present. Active gallbladder disease is not suspected. No biliary tree d ilatation. No hydronephrosis or suspicious renal mass. Bilateral nonobstructing calyx calculi are present. No pe rinephric stranding. No significant adrenal finding. Isodense renal masses and pyelonephritis cannot be excluded in the absence of IV contrast. The urinary bladder is without significant finding. No gastric dilatation or gastric wall thickening. No dilated bowel loops. No free air or pneumatosis. Trace free fluid in the pelvis within physiologic limits. Uterus and ovaries show no suspicious find ings. No mass or bulky lymphadenopathy otherwise noted. There is a small fat only umbilical hernia pr esent. No suspicious bony findings. IMPRESSION: Pronounced hepatosplenomegaly with the liver 29 cm in craniocaudal dimension in the sple en 23 cm. No focal parenchymal finding on noncontrast imaging. Nonobstructing renal calculi with no hydronephrosis or acute renal finding. No acute GI process seen. Cholelithiasis without evidence for active gallbladder disease. Full assessment is limited is the absence of IV contrast.
[2019-02-06] MEDS ORDERED: MORPHINE 4 MG/ML SYR ONE (16:59)
[2019-02-06] MEDS ORDERED: NA CHLORIDE 0.9% 1,000 ML ONE (16:59)
[2019-02-06] MEDS ORDERED: ONDANSETRON 4 MG/2 ML VIAL ONE (17:00)
[2019-02-06 17:21] LABS: Urine Blood 3+ (NEG); Urine Glucose NEGATIVE (NEG); Urine Protein 2+ (NEG)
[2019-02-06 17:25] LABS: Urine Bacteria <20 /HPF (<20); Urine RBC >50 /HPF (NONE SEEN)
[2019-02-06 17:26] LABS: Calcium Oxalate Crystals- Ur MANY (NONE SEEN); Urine Culture Reflex Order NOT NEEDED
[2019-02-06 17:38] LABS: Albumin 2.2 g/dL (3.4-5.0); Bilirubin Direct 0.4 mg/dL (0-0.2); Bilirubin Total 0.5 mg/dL (0.2-1.0); Potassium 3.9 mmol/L (3.5-5.1); Protein, Total 7.2 g/dL (6.4-8.2)
--- NOTE | 2019-02-06 18:19 | ER ---
Nurse's Notes [facility] Name: Rosa M Magallanes Age: 38 yrs Sex: Female : 1980 Arrival Date: 02/06/2019 Time: 15:17 Bed 25 Private MD: Diagnosis: Cholelithiasis Presentation: 02/06 15:24 Presenting complaint: Patient states: R lateral chest and RUQ pain that began 1 week ss ago. Pt also reports mild swelling to the affected area. Also c/o shortness of breath. Transition of care: patient was not received from another setting of care. Onset of symptoms was January 29, 2019. Risk Assessment: Do you want to hurt yourself or someone else? Patient reports no desire to harm self or others. Initial Sepsis Screen: Does the patient meet any 2 criteria? No. Patient's initial sepsis screen is negative. Does the patient have a suspected source of infection? No. Patient's initial sepsis screen is negative. Care prior to arrival: None. 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 - Social history:: Smoking status: Patient uses tobacco products, denies chronic smoking, but will smoke occasionally. - Ebola Screening: : Patient denies exposure to infectious person Patient denies travel to an Ebola-affected area in the 21 days before illness onset. Screenin:20 Abuse screen: Denies threats or abuse. Denies injuries from another. Nutritional rv screening: No deficits noted. Tuberculosis screening: No symptoms or risk factors identified. Fall Risk None identified. Assessment: 18:00 General: Appears in no apparent distress. uncomfortable, Behavior is calm, cooperative. rv 18:00 Pain: Complains of pain in right lateral anterior chest. Neuro: Level of Consciousness rv is awake, alert, obeys commands, Oriented to person, place, time, situation. Cardiovascular: Patient's skin is warm and dry. Respiratory: Airway is patent. GI: No signs and/or symptoms were reported involving the gastrointestinal system. : No signs and/or symptoms were reported regarding the genitourinary system. EENT: No signs and/or symptoms were reported regarding the EENT system. Derm: Skin is intact. Musculoskeletal: No signs and/or symptoms reported regarding the musculoskeletal system. Vital Signs: 15:26 BP 142 / 89; Pulse 115; Resp 17; Temp 98.7(TE); Pulse Ox 99% on R/A; Weight 66.22 kg; ss Height 5 ft. 4 in. (162.56 cm); Pain 0/10; 18:18 BP 115 / 88; Pulse 93; Resp 16; Temp 98.5; Pulse Ox 100% on R/A; rv 15:26 Body Mass Index 25.06 (66.22 kg, 162.56 cm) ED Course: 15:17 Patient arrived in ED. as 15:25 Triage completed. ss 15:26 Arm band placed on right wrist. ss 15:50 Fernando Spencer, ARY is Primary Nurse. rv 16:00 Merlin Conrad NP is PHCP. pm1 16:00 Willam Starks MD is Attending Physician. pm1 16:28 CT completed. Patient tolerated procedure well. Patient moved to CT via wheelchair. Patient moved back from CT. 16:29 CT Abd/Pelvis - Without Contrast In Process Unspecified. EDMS 17:00 Patient has correct armband on for positive identification. Placed in gown. Bed in low rv position. Call light in reach. Side rails up X 1. 17:00 Pulse ox on. NIBP on. rv 17:30 No provider procedures requiring assistance completed. Inserted saline lock: 20 gauge rv in right antecubital area, using aseptic technique. Blood collected. 18:17 Andrea Jones MD is Referral Physician. pm1 18:17 Simran Love MD is Referral Physician. pm1 18:34 IV discontinued, intact, bleeding controlled, No redness/swelling at site. Pressure rv dressing applied. Administered Medications: 16:45 Drug: NS 0.9% 1000 ml Route: IV; Rate: 1000 ml; Site: right antecubital; rv 18:17 Follow up: IV Status: Completed infusion; IV Intake: 1000ml rv 16:45 Drug: morphine 4 mg Route: IVP; Site: right antecubital; rv 18:17 Follow up: Response: No adverse reaction; Pain is decreased rv 16:45 Drug: Zofran 4 mg Route: IVP; Site: right antecubital; rv 18:17 Follow up: Response: No adverse reaction rv 18:30 Drug: TORadol 30 mg Route: IVP; Site: right antecubital; rv 18:35 Follow up: Response: Medication administered at discharge. rv Intake: 18:17 IV: 1000ml; Total: 1000ml. rv Outcome: 18:17 Discharge ordered by MD. pm1 18:32 Discharged to home ambulatory, with friend. rv 18:32 Condition: good 18:32 Discharge instructions given to patient, Instructed on discharge instructions, follow up and referral plans. medication usage, Demonstrated understanding of instructions, follow-up care, medications, Prescriptions given X 2. 18:35 Patient left the ED. rv Signatures: Dispatcher [employer] EDMS Sandro Reyes Amelia as Smirch, Shelby, RN RN ss Merlin Conrad, JENI ONION TOPPER pm1 Fernando Spencer RN RN rv Corrections: (The following items were deleted from the chart) 15:27 15:24 Presenting complaint: Patient states: R lateral chest and RUQ pain that began 1 ss week ago. Pt also reports mild swelling to the affected area. ss 15:27 15:24 Acuity: EUGENIA 3 ss ss 17:27 15:45 NS 0.9% 1000 ml IV at 1000 ml in right antecubital rv rv
--- NOTE | 2019-02-06 18:19 | EDPHYS ---
Physician Documentation [facility] Name: RosaM Magallanes Age: 38 yrs Sex: Female : 1980 Arrival Date: 02/06/2019 Time: 15:17 Bed 25 Private MD: ED Physician Willam Starks HPI: 02/06 16:29 This 38 yrs old Black Female presents to ER via Ambulatory with complaints of Rib Pain. pm1 16:29 The patient presents with abdominal pain in the right upper quadrant, right lateral rib pm1 area. Onset: The symptoms/episode began/occurred 1 week(s) ago. The symptoms do not radiate. Associated signs and symptoms: Pertinent positives: No shortness of breath present, she has pain with deep breathing, Pertinent negatives: nausea, vomiting, and diarrhea, chest pain, dysuria, fever, shortness of breath. The symptoms are described as achy. Modifying factors: The symptoms are alleviated by nothing, the symptoms are aggravated by breathing deeply, food, touching the area. Severity of pain: in the emergency department the pain is unchanged. The patient has not experienced similar symptoms in the past. The patient has not recently seen a physician. 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 - Social history:: Smoking status: Patient uses tobacco products, denies chronic smoking, but will smoke occasionally. - Ebola Screening: : Patient denies exposure to infectious person Patient denies travel to an Ebola-affected area in the 21 days before illness onset. ROS: 16:29 Constitutional: Negative for fever, chills, and weight loss, Eyes: Negative for injury, pm1 pain, redness, and discharge, Neck: Negative for injury, pain, and swelling, Cardiovascular: Negative for chest pain, palpitations, and edema, Respiratory: Negative for shortness of breath, cough, wheezing, and pleuritic chest pain. 16:29 Back: Negative for injury and pain, MS/Extremity: Negative for injury and deformity, Skin: Negative for injury, rash, and discoloration, Neuro: Negative for headache, weakness, numbness, tingling, and seizure. 16:29 Abdomen/GI: Positive for abdominal pain, of the right upper quadrant, Negative for nausea, vomiting, and diarrhea. Exam: 16:29 Constitutional: This is a well developed, well nourished patient who is awake, alert, pm1 and in no acute distress. Head/Face: Normocephalic, atraumatic. Chest/axilla: Normal chest wall appearance and motion. Nontender with no deformity. No lesions are appreciated. Cardiovascular: Regular rate and rhythm with a normal S1 and S2. No gallops, murmurs, or rubs. Normal PMI, no JVD. No pulse deficits. Respiratory: Lungs have equal breath sounds bilaterally, clear to auscultation and percussion. No rales, rhonchi or wheezes noted. No increased work of breathing, no retractions or nasal flaring. 16:29 Back: No spinal tenderness. No costovertebral tenderness. Full range of motion. Skin: Warm, dry with normal turgor. Normal color with no rashes, no lesions, and no evidence of cellulitis. MS/ Extremity: Pulses equal, no cyanosis. Neurovascular intact. Full, normal range of motion. 16:29 Abdomen/GI: Inspection: abdomen appears normal, Bowel sounds: normal, Palpation: mild abdominal tenderness, in the right upper quadrant, mass, is not appreciated, rebound tenderness, is not appreciated. 16:29 Neuro: Orientation: is normal, Motor: is normal, moves all fours. Vital Signs: 15:26 BP 142 / 89; Pulse 115; Resp 17; Temp 98.7(TE); Pulse Ox 99% on R/A; Weight 66.22 kg; ss Height 5 ft. 4 in. (162.56 cm); Pain 0/10; 18:18 BP 115 / 88; Pulse 93; Resp 16; Temp 98.5; Pulse Ox 100% on R/A; rv 15:26 Body Mass Index 25.06 (66.22 kg, 162.56 cm) MDM: 16:06 Patient medically screened. pm1 18:16 Data reviewed: vital signs. Data interpreted: Pulse oximetry: on room air is 99 %. pm1 Interpretation: normal. Counseling: I had a detailed discussion with the patient and/or guardian regarding: the historical points, exam findings, and any diagnostic results supporting the discharge/admit diagnosis, lab results, radiology results, the need for outpatient follow up, for definitive care, a general surgeon, a strip winder, a urologist, to return to the emergency department if symptoms worsen or persist or if there are any questions or concerns that arise at home. 02/06 16:14 Order name: Basic Metabolic Panel; Complete Time: 17:44 pm02/06 16:14 Order name: CBC with Diff; Complete Time: 16:49 pm1 02/06 16:14 Order name: Creatinine for Radiology; Complete Time: 17:02 pm1 02/06 16:14 Order name: Hepatic Function; Complete Time: 17:44 pm02/06 16:14 Order name: Lipase; Complete Time: 17:44 pm1 02/06 16:30 Order name: Urine Microscopic Only; Complete Time: 17:29 02/06 16:14 Order name: IV Saline Lock; Complete Time: 17:27 pm1 02/06 16:14 Order name: CT Abd/Pelvis - Without Contrast; Complete Time: 16:49 pm1 02/06 17:17 Order name: Urine Dipstick--Ancillary (enter results); Complete Time: 17:21 eb 02/06 17:17 Order name: Urine --Ancillary (enter results); Complete Time: 17:21 eb 02/06 16:14 Order name: Labs collected and sent; Complete Time: 17:27 pm02/06 16:14 Order name: Urine Dipstick-Ancillary (obtain specimen); Complete Time: 16:31 pm02/06 16:14 Order name: Urine Test (obtain specimen); Complete Time: 16:31 pm1 Administered Medications: 16:45 Drug: NS 0.9% 1000 ml Route: IV; Rate: 1000 ml; Site: right antecubital; rv 18:17 Follow up: IV Status: Completed infusion; IV Intake: 1000ml rv 16:45 Drug: morphine 4 mg Route: IVP; Site: right antecubital; rv 18:17 Follow up: Response: No adverse reaction; Pain is decreased rv 16:45 Drug: Zofran 4 mg Route: IVP; Site: right antecubital; rv 18:17 Follow up: Response: No adverse reaction rv 18:30 Drug: TORadol 30 mg Route: IVP; Site: right antecubital; rv 18:35 Follow up: Response: Medication administered at discharge. rv Disposition: 02/07 09:50 Co-signature as Attending Physician, Willam Starks MD I agree with the assessment and merrill plan of care. Disposition: 02/06/19 18:17 Discharged to Home. Impression: Cholelithiasis. - Condition is Stable. - Discharge Instructions: Cholelithiasis. - Prescriptions for Bentyl 20 mg Oral Tablet - take 1 tablet by ORAL route every 6 hours As needed; 20 tablet. Tylenol- Codeine #3 300-30 mg Oral Tablet - take 2 tablets by ORAL route every 6 hours As needed; 20 tablet. - Medication Reconciliation Form, Thank You Letter, Antibiotic Education, Prescription Opioid Use form. - Follow up: Emergency Department; When: As needed; Reason: Worsening of condition. Follow up: Andrea Jones MD; When: 2 - 3 days; Reason: Recheck today's complaints, Continuance of care, Re-evaluation by your physician. Follow up: Simran Love MD; When: 2 - 3 days; Reason: Recheck today's complaints, Continuance of care, Re-evaluation by your physician. - Problem is new. - Symptoms have improved. Signatures: Dispatcher [employer] EDWillam Schmidt MD MD cha Smirch, Shelby, RN RN ss Merlin Conrad, MATERIAL CONTROL ASSOCIATE MATERIAL CONTROL ASSOCIATE pm1 Fernando Spencer RN RN rv Corrections: (The following items were deleted from the chart) 02/06 18:35 18:17 02/06/2019 18:17 Discharged to Home. Impression: Cholelithiasis. Condition is rv Stable. Forms are Medication Reconciliation Form, Thank You Letter, Antibiotic Education, Prescription Opioid Use. Follow up: Emergency Department; When: As needed; Reason: Worsening of condition. Follow up: Andrea Jones; When: 2 - 3 days; Reason: Recheck today's complaints, Continuance of care, Re-evaluation by your physician. Follow up: Simran Love; When: 2 - 3 days; Reason: Recheck today's complaints, Continuance of care, Re-evaluation by your physician. Problem is new. Symptoms have improved. pm1
[2019-02-06] MEDS ORDERED: KETOROLAC 30 MG/ML INJ ONE (18:31)
[2019-02-06 19:51] VITALS: BP 115/88; TEMP 98.5; O2SAT 100
== END 2019-02-06 18:35 | disposition home or self-care (01) ==
LOC: ER 15:17
DX: K80.20 Calculus of gallbladder without cholecystitis without obstruction (principal); I10 Essential (primary) hypertension; Z88.8 Allergy status to other drugs, medicaments and biological substances; Z72.0 Tobacco use
CPT/HCPCS: 36415; 74176; 80048; 80076; 81003; 81015; 81025; 83690; 85025; 96361; 96374; 96375; 99284; J2405; J7030

== ENCOUNTER 2020-02-21 12:16 | Emergency (ER) | payer SELFPAY ==
--- OUTSIDE RECORDS SUMMARY | 2020-02-21 12:18 | XMS REPORT | Continuity of Care Document ---
:1980 Author Organization [facility] t Address [address] [place] [address] Care Team Providers Name Role Phone DR NEMO Attending Clinician Unavailable Scotty TELLEZ Attending Clinician DR NEMO Admitting Clinician Unavailable Problems This patient has no known problems. Allergies, Adverse Reactions, Alerts This patient has no known allergies or adverse reactions. Medications This patient has no known medications. Procedures This patient has no known procedures. Encounters Start End Encounter Admission Attending Care Care Encounter Source Date/Time Date/Time Type Type Clinicians Facility Department ID 2019-05-07 2019-05-07 Outpatient C NEMO [facility] [id number] [place] 12:04:00 23:59:00 [facility] 2019-03-21 2019-03-21 Emergency Scotty [facility] [id number] 06:46:08 09:09:00 [facility] [id number] [place] [id number] [place] [id number] Results Test Description Test Time Test Comments Results Result Comments Source CHEST 2 VIEW*GP* 2019-05-07 Exam: Chest x-ray 2 12:30:41 viewsHISTORY: SarcoidosisLocation: [id number]:The heart size is normal with diffuse interstitial prominence particularly inthe perihilar regions and lung bases likely representing changes ofsarcoidosis. No significant mediastinal or hilar lymphadenopathy. Possiblesmall 9.6 mm nodular density in the right lower lobe versus infiltrativeconsolid ation. Superimposed pneumonia in the right lower lobe cannot beexcluded. No prior exams available for comparison. Osseous structures areintact.Impression :1. Diffuse interstitial prominence with likely superimposed pneumonia in theright lower lobe and nodular consolidation versus pulmonary nodule. Ifresolution does not occur. CT recommended.
[2020-02-21 12:57] LABS: Absolute Lymphocytes (CBC) 1.6 K/uL (0.7-4.9); Hematocrit 30.7 % (36.0-45.0); Lymphocytes % 10.6 % (15.3-44.8); MPV 8.4 fL (7.6-11.3); RBC Red Blood Cell Count 4.19 M/uL (3.86-4.86)
[2020-02-21] MEDS ORDERED: ONDANSETRON 4 MG/2 ML VIAL ONE ×2 (13:04→15:50)
[2020-02-21] MEDS ORDERED: Ringers Lactate 1,000 ML IV ONE ×2 (13:04→14:35)
[2020-02-21 13:16] LABS: Albumin 2.3 g/dL (3.4-5.0); Bilirubin Direct 0.6 mg/dL (0-0.2); Bilirubin Total 0.8 mg/dL (0.2-1.0); Potassium 4.2 mmol/L (3.5-5.1); Protein, Total 7.5 g/dL (6.4-8.2)
[2020-02-21] MEDS ORDERED: DIPHENHYDRAMINE 50 MG/ML VIAL ONE (13:19)
[2020-02-21] MEDS ORDERED: METHYLPREDNISOLONE 125 MG INJ ONE (13:19)
[2020-02-21] MEDS ORDERED: ACETAMINOPHEN 500 MG TAB ONE (13:20)
[2020-02-21 13:42] LABS: Urine Bacteria >50 /HPF (<20); Urine Culture Reflex Order REFLEXED
--- NOTE | 2020-02-21 13:52 | RAD REPORT ---
EXAM DESCRIPTION: CT - Stone Protocol - 02/21/2020 1:42 pm CLINICAL HISTORY: Flank pain. ABD PAIN COMPARISON: <Comparisons> TECHNIQUE: Axial images were obtained without oral or IV contrast. Lack of contrast limits solid org an and vascular assessment. The [id number] spans the entirety of the system partially obscuring uppermost abdomen and lung bases. Coronal reformatted images were obtained and reviewed. All CT scans are performed using dose optimization technique as appropriate and may include automated exposure control or mA/KV adjustment according to patient size. FINDINGS: Linear scarring is present in both lower lobes. Significant hepatosplenomegaly.Cholelithiasis. The pancreas and adrenal glands are normal. No patholo gic lymphadenopathy in the abdomen or pelvis. Multiple stones are present in the calices of both kidneys, largest in the inferior right renal calyx measuring 12 mm. Several stones are present in the mid aspect of the right ureter, the largest measu ring 11 mm (740 HU) and resulting in moderate hydronephrosis. No bowel obstruction, free air, free fluid or abscess. Normal appendix noted. No significant bony abnormality. IMPRESSION: Bilateral nephrolithiasis is seen with several stones in the mid right ureter, largest m easuring 11 mm, resulting in moderate right hydronephrosis. Prominent hepatosplenomegaly. Cholelithiasis.
--- NOTE | 2020-02-21 14:34 | ER ---
Nurse's Notes [facility] Name: Rosa M Magallanes Age: 39 yrs Sex: Female : 1980 Arrival Date: 02/21/2020 Time: 12:18 Bed 14 Private MD: Diagnosis: Hydronephrosis with renal and ureteral calculous obstruction;Severe sepsis without septic shock;Acute kidney failure Presentation: 02/20 12:43 Chief complaint: Patient states: R flank pain, RLQ pain, N/V/D x 3 days. Coronavirus ks7 screen: Client denies travel out of the [place] in the last 14 days. At this time, the client does not indicate any symptoms associated with coronavirus-19. The client reports previous COVID testing was negative. Date of collection: February 10, 2020. Ebola Screen: Patient negative for fever greater than or equal to 101.5 degrees Fahrenheit, and additional compatible Ebola Virus Disease symptoms Patient denies exposure to infectious person. Patient denies travel to an Ebola-affected area in the 21 days before illness onset. Initial Sepsis Screen: Does the patient meet any 2 criteria? Temp <36.0*C (96.8*F)) or > 38.3*C (100.9*F). HR > 90 bpm. Does the patient have a suspected source of infection?. Risk Assessment: Do you want to hurt yourself or someone else? Patient reports no desire to harm self or others. Onset of symptoms was February 18, 2020. 12:43 Method Of Arrival: Ambulatory ks7 12:43 Acuity: EUGENIA 3 ks7 Triage Assessment: 12:47 General: Appears uncomfortable, ill, Behavior is cooperative. Pain: Complains of pain ks7 in abdomen, pelvis and back Pain currently is 8 out of 10 on a pain scale. Quality of pain is described as sharp, Pain began 2-3 days ago. GI: Abdomen is flat, non-distended, Bowel sounds present X 4 quads. Reports diarrhea, nausea, vomiting. 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 - Social history:: Smoking status: Patient denies any tobacco usage or history of. Screenin:49 Abuse screen: Denies threats or abuse. Denies injuries from another. Nutritional ks7 screening: No deficits noted. Tuberculosis screening: No symptoms or risk factors identified. Fall Risk None identified. 13:59 Sepsis Screening: . Infection: SIRS - Systemic Inflammatory Response Syndrome: 2 or ks7 more indicates positive screen: [temperature greater than or equal to 100.9F or less than or equal to 96.8F] [heart rate greater than 90 beats per minute]. 14:00 Sepsis Screening: SIRS - Systemic Inflammatory Response Syndrome: 2 or more indicates ks7 positive screen: [WBC greater than or equal to 12,000/mm3 or less than or equal to 4,000/mm3 or greater than 0.5 K/uL bands] Provider has been notified and patient further screened based on infection criteria. Assessment: 12:49 General: Appears uncomfortable, ill, Behavior is cooperative. GI: Abd is soft Abdomen ks7 is tender to palpation in R flank Reports nausea, vomiting. Vital Signs: 12:31 BP 113 / 84; Pulse 110; Resp 18; Temp 101.9; Pulse Ox 99% on R/A; Pain 8/10; ks7 12:43 Temp 101.9; ks7 13:15 BP 122 / 35; Pulse 141; Resp 20; Pulse Ox 100% on R/A; Pain 7/10; ks7 13:35 Pulse Ox 100% on R/A; Pain 5/10; ks7 13:35 Resp 18; Pulse Ox 100% on R/A; ks7 13:52 BP 109 / 71; Pulse 148; Resp 18; Temp 102.7(O); Pulse Ox 98% on R/A; Pain 5/10; ks7 14:36 BP 109 / 71; Pulse 134; Resp 18; Pulse Ox 100% on R/A; Pain 4/10; ks7 15:36 BP 97 / 63; Pulse 105; Resp 18; Temp 99.8; Pulse Ox 100% on R/A; Pain 7/10; ks7 ED Course: 12:18 Patient arrived in ED. ag5 12:19 Thuan Sanders PA is PHCP. jr8 12:19 Chris Bansal MD is Attending Physician. jr8 12:20 Jeanine Dubon RN is Primary Nurse. ks7 12:31 Arm band placed on right wrist. ks7 12:46 Triage completed. ks7 12:49 Resting quietly. ks7 12:49 Patient has correct armband on for positive identification. Placed in gown. Bed in low ks7 position. Call light in reach. Side rails up X2. 12:49 No provider procedures requiring assistance completed. Inserted saline lock: 20 gauge ks7 in left antecubital area, using aseptic technique. Blood collected. 12:51 Urine --Ancillary (enter results) Sent. ks7 12:51 Urine Dipstick--Ancillary (enter results) Sent. ks7 12:51 Urine Microscopic Only Sent. ks7 12:51 Basic Metabolic Panel Sent. ks7 12:52 Lipase Sent. ks7 13:15 LFT's Sent. ks7 13:15 CBC with Diff Sent. ks7 13:43 CT completed. Patient tolerated procedure well. Patient moved back from CT. bq 13:[address] ks7 13:52 Patient moved back from CT. ks7 15:47 Patient admitted, IV remains in place. Patient transferred, IV remains in place. ks7 Administered Medications: Discontinued: Ringers - Lactated Ringers Solution 1000 ml IV at calculated rate bolus Discontinued: Ringers - Lactated Ringers Solution 1000 ml IV at bolus bolus 12:58 Drug: Zofran (Ondansetron) 4 mg Route: IVP; Site: left antecubital; ks7 12:58 Drug: Ringers - Lactated Ringers Solution 1000 ml Route: IV; Rate: calculated rate; ks7 Site: left antecubital; 13:15 Drug: SOLU-Medrol 125 mg Route: IVP; Site: left antecubital; ks7 13:35 Follow up: Resp 18 bpm; Pulse Ox 100% RA ks7 13:15 Drug: Tylenol 1000 mg Route: PO; ks7 13:35 Follow up: Pulse Ox 100% RA; Pain 5/10 Adult ks7 13:35 Not Given (order cancelled d/t no contrast with CT): Benadryl 25 mg IVP once ks7 14:38 Drug: Ringers - Lactated Ringers Solution 1000 ml Route: IV; Rate: bolus; Site: left ks7 antecubital; 14:40 Drug: Rocephin 2 grams Route: IV; Rate: calculated rate; Site: left antecubital; ks7 15:45 Drug: Zofran (Ondansetron) 4 mg Route: IVP; Site: right antecubital; ks7 15:46 Drug: morphine 4 mg Route: IVP; Site: right antecubital; ks7 Outcome: 14:33 ER care complete, transfer ordered by . jr8 15:18 Transferred by ground EMS to [facility], Transfer form completed. 7 X-rays sent w/ patient. 15:18 Transferred Note: Report given to Beka MCALLISTER 15:18 Condition: improved 15:18 Instructed on the need for admit. 15:47 Transferred by ground EMS to [facility], Transfer form completed. ks7 15:48 Patient left the ED. Signatures: Shelby Philip Josh, PA PA jr8 Cecilia Garcia 5 Jeanine Dubon, RN RN ks7 Corrections: (The following items were deleted from the chart) 12:43 12:31 BP 113 / 84; Pulse 110bpm; Resp 18bpm; Pulse Ox 99% RA; Pain 8/10; ks7 ks7 12:52 12:51 CBC+H.LAB.BRZ drawn and sent. 7 EDMS 12:52 12:51 HEPATIC FUNCTION+C.LAB.BRZ drawn and sent. EDMS 13:21 13:15 Pulse 147bpm; Resp 20bpm; Pulse Ox 100% RA; Pain 7/10; ks7 ks7
--- NOTE | 2020-02-21 14:34 | EDPHYS ---
Physician Documentation [facility] Name: Rosa M Magallanes Age: 39 yrs Sex: Female : 1980 Arrival Date: 02/21/2020 Time: 12:18 Bed 14 Private MD: ED Physician Chris Bansal HPI: 02/20 14:29 This 39 yrs old Black Female presents to ER via Ambulatory with complaints of Low Back jr8 Pain, Abdominal Pain. 14:29 The patient presents with pain that is acute, with no known mechanism of injury. The jr8 symptoms are located in the R flank pain and RLQ pain. The pain does not radiate. Onset: The symptoms/episode began/occurred acutely, 3 day(s) ago. Associated signs and symptoms: Pertinent positives: fever, nausea, vomiting, diarrhea. Severity of symptoms: At their worst the symptoms were moderate, in the emergency department the symptoms are unchanged. Pt c/o of sudden onset R flank and RLQ pain x 3 days. The pt describes the pain as sharp and constant. Reports tenderness upon palpation of her flank, but denies tenderness on abdominal palpation. States she has not been able to keep anything down since yesterday, and has been experiencing chills at home. Also reports diarrhea x 2 today.. 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 - Social history:: Smoking status: Patient denies any tobacco usage or history of. ROS: 14:28 Eyes: Negative for injury, pain, redness, and discharge, ENT: Negative for injury, jr8 pain, and discharge, Neck: Negative for injury, pain, and swelling, Cardiovascular: Negative for chest pain, palpitations, and edema, Respiratory: Negative for shortness of breath, cough, wheezing, and pleuritic chest pain, MS/Extremity: Negative for injury and deformity, Skin: Negative for injury, rash, and discoloration, Neuro: Negative for headache, weakness, numbness, tingling, and seizure. 14:28 Abdomen/GI: Positive for abdominal pain, Negative for nausea and vomiting. 14:28 Back: Positive for pain at rest, flank pain, on the right. 14:29 Constitutional: Positive for chills, fever. jr8 Exam: 14:28 Eyes: Pupils equal round and reactive to light, extra-ocular motions intact. Lids and jr8 lashes normal. Conjunctiva and sclera are non-icteric and not injected. Cornea within normal limits. Periorbital areas with no swelling, redness, or edema. ENT: Nares patent. No nasal discharge, no septal abnormalities noted. Tympanic membranes are normal and external auditory canals are clear. Oropharynx with no redness, swelling, or masses, exudates, or evidence of obstruction, uvula midline. Mucous membranes moist. Neck: Trachea midline, no thyromegaly or masses palpated, and no cervical lymphadenopathy. Supple, full range of motion without nuchal rigidity, or vertebral point tenderness. No Meningismus. Cardiovascular: Tachycardic with a normal S1 and S2. No gallops, murmurs, or rubs. Normal PMI, no JVD. No pulse deficits. Respiratory: Lungs have equal breath sounds bilaterally, clear to auscultation and percussion. No rales, rhonchi or wheezes noted. No increased work of breathing, no retractions or nasal flaring. Skin: Warm, dry with normal turgor. Normal color with no rashes, no lesions, and no evidence of cellulitis. MS/ Extremity: Pulses equal, no cyanosis. Neurovascular intact. Full, normal range of motion. Neuro: Awake and alert, GCS 15, oriented to person, place, time, and situation. Cranial nerves II-XII grossly intact. Motor strength 5/5 in all extremities. Sensory grossly intact. Cerebellar exam normal. Normal gait. 14:28 Abdomen/GI: Inspection: abdomen appears normal, Bowel sounds: active, all quadrants, Palpation: soft, in all quadrants, mild abdominal tenderness, in the right lower quadrant, mass, is not appreciated, rebound tenderness, is not appreciated, voluntary guarding, is not appreciated, involuntary guarding, is not appreciated, no appreciated organomegaly, Indicators: McBurney's point is not tender, Babcock's sign is negative, Rovsing's sign is negative, Liver: tenderness, is not appreciated. 14:28 Back: pain, that is mild, of the right flank, ROM is normal, CVA tenderness, that is moderate, is noted on the right. Vital Signs: 12:31 BP 113 / 84; Pulse 110; Resp 18; Temp 101.9; Pulse Ox 99% on R/A; Pain 8/10; ks7 12:43 Temp 101.9; ks7 13:15 BP 122 / 35; Pulse 141; Resp 20; Pulse Ox 100% on R/A; Pain 7/10; ks7 13:35 Pulse Ox 100% on R/A; Pain 5/10; ks7 13:35 Resp 18; Pulse Ox 100% on R/A; ks7 13:52 BP 109 / 71; Pulse 148; Resp 18; Temp 102.7(O); Pulse Ox 98% on R/A; Pain 5/10; ks7 14:36 BP 109 / 71; Pulse 134; Resp 18; Pulse Ox 100% on R/A; Pain 4/10; ks7 15:36 BP 97 / 63; Pulse 105; Resp 18; Temp 99.8; Pulse Ox 100% on R/A; Pain 7/10; ks7 MDM: 12:19 [facility]. [facility] 14:28 Data reviewed: vital signs, nurses notes, lab test result(s), radiologic studies, CT jr8 scan. Data interpreted: Pulse oximetry: on room air is 98 %. Interpretation: normal. Counseling: I had a detailed discussion with the patient and/or guardian regarding: the historical points, exam findings, and any diagnostic results supporting the discharge/admit diagnosis, lab results, radiology results, the need to transfer to another facility, [facility] does not immediately have the required specialist. ED course: Talked to Dr. Hurst urology at [facility]. Accepted for consult. Dr. Davis hospitalist accepted patient for transfer . 02/20 12:33 Order name: Basic Metabolic Panel jr8 02/20 12:33 Order name: Lipase [facility] 02/20 12:33 Order name: Urine Microscopic Only [facility] 02/20 12:34 Order name: Urine Dipstick--Ancillary (enter results) ct 02/20 12:34 Order name: Urine --Ancillary (enter results) ct 02/20 12:59 Order name: CBC with Diff [facility] 02/20 12:59 Order name: LFT's [facility] 02/20 13:02 Order name: CBC with Automated Diff; Complete Time: 13:47 EDMS 02/20 13:17 Order name: Basic Metabolic Panel; Complete Time: 13:47 EDMS 02/20 13:17 Order name: Liver (Hepatic) Function; Complete Time: 13:47 EDMS 02/20 13:17 Order name: Lipase; Complete Time: 13:47 EDMS 02/20 13:43 Order name: Urine Microscopic Only; Complete Time: 13:47 EDMS 02/20 13:01 Order name: CT Abd/Pelvis - IV Contrast Only [facility] 02/20 13:53 Order name: CT; Complete Time: 13:56 EDMS 02/20 13:56 Order name: Blood Culture Adult (2) [facility] 02/20 13:56 Order name: Procalcitonin [facility] 02/20 13:56 Order name: Lactate [facility] 02/20 15:01 Order name: Urine --Ancillary; Complete Time: 15:05 EDMS 02/20 15:01 Order name: Urine Dipstick-Ancillary; Complete Time: 15:05 EDMS 02/20 15:07 Order name: Lactate; Complete Time: 15:08 EDIA 02/20 12:33 Order name: IV Saline Lock; Complete Time: 12:51 [facility] 02/20 12:33 Order name: Labs collected and sent; Complete Time: 12:52 [facility] 02/20 12:33 Order name: Urine Test (obtain specimen); Complete Time: 12:51 [facility] 02/20 12:33 Order name: Urine Dipstick-Ancillary (obtain specimen); Complete Time: 12:51 [facility] 02/20 14:37 Order name: EKG - Nurse/Tech [facility] Administered Medications: Discontinued: Ringers - Lactated Ringers Solution 1000 ml IV at calculated rate bolus Discontinued: Ringers - Lactated Ringers Solution 1000 ml IV at bolus bolus 12:58 Drug: Zofran (Ondansetron) 4 mg Route: IVP; Site: left antecubital; ks7 12:58 Drug: Ringers - Lactated Ringers Solution 1000 ml Route: IV; Rate: calculated rate; ks7 Site: left antecubital; 13:15 Drug: SOLU-Medrol 125 mg Route: IVP; Site: left antecubital; ks7 13:35 Follow up: Resp 18 bpm; Pulse Ox 100% RA ks7 13:15 Drug: Tylenol 1000 mg Route: PO; ks7 13:35 Follow up: Pulse Ox 100% RA; Pain 5/10 Adult ks7 13:35 Not Given (order cancelled d/t no contrast with CT): Benadryl 25 mg IVP once ks7 14:38 Drug: Ringers - Lactated Ringers Solution 1000 ml Route: IV; Rate: bolus; Site: left ks7 antecubital; 14:40 Drug: Rocephin 2 grams Route: IV; Rate: calculated rate; Site: left antecubital; ks7 15:45 Drug: Zofran (Ondansetron) 4 mg Route: IVP; Site: right antecubital; ks7 15:46 Drug: morphine 4 mg Route: IVP; Site: right antecubital; ks7 Disposition: 16:10 Co-signature as Attending Physician, Chris Bansal MD. rn Disposition: 02/21/20 14:33 Transfer ordered to [facility]. Diagnosis are Hydronephrosis with renal and ureteral calculous obstruction, Severe sepsis without septic shock, Acute kidney failure. - Reason for transfer: Higher level of care. - Accepting physician is Dr. Mahoney. - Condition is Stable. - Problem is new. - Symptoms have improved. Signatures: Dispatcher [employer] EDMS Chris Bansal MD MD rn Roszak, Josh, PA PA jr8 Jeanine Dubon RN RN ks7 Corrections: (The following items were deleted from the chart) 12:52 12:34 CBC+H.LAB.BRZ ordered. EDMS EDMS 12:52 12:34 HEPATIC FUNCTION+C.LAB.BRZ ordered. EDMS EDMS 14:37 14:33 02/21/2020 14:33 Transfer ordered to [facility]. jr8 Diagnosis is Hydronephrosis with renal and ureteral calculous obstruction; Severe sepsis without septic shock; Acute kidney failure. Reason for transfer: Higher level of care. Accepting physician is Dr. Davis . Condition is Stable. Problem is new. Symptoms have improved. jr8 15:48 14:37 02/21/2020 14:33 Transfer ordered to [facility]. ks7 Diagnosis is Hydronephrosis with renal and ureteral calculous obstruction; Severe sepsis without septic shock; Acute kidney failure. Reason for transfer: Higher level of care. Accepting physician is Dr. Mahoney. Condition is Stable. Problem is new. Symptoms have improved. jr8
[2020-02-21] MEDS ORDERED: CEFTRIAXONE/SWI 1gm 2 GM/20 ML SYR ONE (14:35)
[2020-02-21 15:00] LABS: Urine Blood 2+ (NEG); Urine Glucose NEGATIVE (NEG); Urine Protein 2+ (NEG)
[2020-02-21] MEDS ORDERED: MORPHINE 4 MG/ML SYR ONE (15:50)
[2020-02-21 16:01] VITALS: O2SAT 100
[2020-02-21 16:03] VITALS: BP 97/63; TEMP 99.8
== END 2020-02-21 15:48 | disposition short-term general hospital (02) ==
LOC: ER 12:16
DX: N13.2 Hydronephrosis with renal and ureteral calculous obstruction (principal); R65.20 Severe sepsis without septic shock; N17.9 Acute kidney failure, unspecified; Z88.8 Allergy status to other drugs, medicaments and biological substances
CPT/HCPCS: 36415; 74176; 76377; 80048; 80076; 81003; 81015; 81025; 83605; 83690; 84145; 85025; 87040; 87086; 87088; 87205; 99285; J0696; J1200; J2405; J2930; J7120

== ENCOUNTER 2020-03-01 11:04 | Emergency (ER) | payer SELFPAY ==
--- OUTSIDE RECORDS SUMMARY | 2020-03-01 11:07 | XMS REPORT | Clinical Summary ---
:1980 Author Organization [facility] Address [address] [place] [address] Care Team Providers Name Role Phone Unavailable Primary Care Provider Unavailable Allergies Active Allergy Reactions Severity Noted Date Comments Iodine And Iodide Containing Hives 02/21/2020 Products Penicillins 02/29/2020 Augmentin--"swe lling of arms, feet and lips" Shellfish Containing Products Hives 02/21/2020 Medications Medication Sig Dispensed Refills Start Date End Date Status pantoprazole Take 1 tablet 60 tablet 0 02/25/2020 Ac tive (PROTONIX) 40 MG (40 mg total) 0 tablet by mouth 2 (two) times daily for 30 days. predniSONE Take 1 tablet 90 tablet 0 02/26/2020 Acti ve (DELTASONE) 10 MG (10 mg total) 0 tablet by mouth daily for 90 days. tamsulosin (FLOMAX) Take 1 30 capsule 0 02/26/2020 Active 0.4 mg Cap 24 hr capsule (0.4 capsule mg total) by mouth daily. phenazopyridine Take 1 tablet 10 tablet 0 02/25/2020 (PYRIDIUM) 95 MG (95 mg total) 0 tablet by mouth 3 (three) times daily with meals for 3 days. amoxicillin-clavulana Take 1 tablet 28 tablet 0 02/25/2020 Discontinued te (AUGMENTIN) by mouth 2 0 875-125 mg per tablet (two) times daily for 14 days. Active Problems Problem Noted Date Obstructive uropathy 02/21/2020 Sepsis secondary to UTI 02/21/2020 MARIA GUADALUPE (acute kidney injury) 02/21/2020 Sarcoidosis 02/21/2020 Ureteral stone with hydronephrosis 02/21/2020 Stones in the urinary tract 02/21/2020 Overview: Added automatically from request for ari bryant [id number] Encounters Date Type Specialty Care Team Description 02/21/2020 Anesthesia Event Mack Michel-Mary Victoria MD 02/21/2020 Surgery Freddie Hurst CYSTOSCOPY,IN SERTIO MD Collin N URETERAL STEN TS 02/21/2020 - Hospital Encounter General Internal SolismarcyJuan Jose Obs tructive uropathy; 02/25/2020 Medicine MD Margareth Sepsis secondary to UTI ([facility]); Arnulfo Iraheta MD MARIA GUADALUPE (acute kidney injury) ([facility]); Fernanda Torres Stones in th e urinary tract; MD Juancarlos Right ureteral stone; Freddie Hurst Sepsis due to urinary tract infection ([facility]); MD Collin Bilateral renal stones after 03/01/2019 Social History Tobacco Use Types Packs/Day Years Used Date Never Assessed Sex Assigned at Date Recorded Not on file Job Start Date Occupation Industry Not on file Not on file Not on file Travel History Travel Start Travel End No recent travel history available. Last Filed Vital Signs Vital Sign Reading Time Taken Blood Pressure 133/85 02/25/2020 11:05 AM CDT Pulse 99 02/25/2020 11:05 AM CDT Temperature 36.6 C (97.9 F) 02/25/2020 11:05 AM CDT Respiratory Rate 18 02/25/2020 11:05 AM CDT Oxygen Saturation 100% 02/25/2020 11:05 AM CDT Inhaled Oxygen Concentration 21% 02/24/2020 9:15 PM CDT Weight - - Height - - Body Mass Index - - Plan of Treatment Not on file Implants Implanted Type Area Numerical Control Lathe Operator Device Identifier Shelf Model / Expiration Serial / Date Lot Set Stent Injection 6x24cm [id number] - [id number] IMPLANTS Lef t: [employer] [id number] 05/26/2021 [id number] / Implanted: Qty: 1 on 02/21/2020 by Freddie Hurst MD [employer] / [id number] Set Stent Injection 6x26cm [id number] - [id number] IMPLANTS Rig ht: [employer] [id number] 08/03/2021 [id number] / Implanted: Qty: 1 on 02/21/2020 by Freddie Hurst MD [employer] / [id number] Procedures Procedure Name Priority Date/Time Associated Comments Diagnosis RHYTHM STRIP - SCAN 02/26/2020 1:30 PM CDT CBC W/PLT COUNT & AUTO Routine 02/25/2020 4:01 R esults for this DIFFERENTIAL AM CDT procedure are i n the results section. MAGNESIUM Routine 02/25/2020 4:01 Results for this AM CDT procedure are i n the results section. CBC W/PLT COUNT & AUTO Routine 02/25/2020 4:01 R esults for this DIFFERENTIAL AM CDT procedure are i n the results section. BASIC METABOLIC PANEL Routine 02/25/2020 4:01 Re sults for this (7) AM CDT procedure are i n the results section. CBC W/PLT COUNT & AUTO Routine 02/24/2020 3:59 R esults for this DIFFERENTIAL AM CDT procedure are i n the results section. MAGNESIUM Routine 02/24/2020 3:59 Results for this AM CDT procedure are i n the results section. CBC W/PLT COUNT & AUTO Routine 02/24/2020 3:59 R esults for this DIFFERENTIAL AM CDT procedure are i n the results section. BASIC METABOLIC PANEL Routine 02/24/2020 3:59 Re sults for this (7) AM CDT procedure are i n the results section. TRANSFUSION SERVICE 02/23/2020 6:12 REPORT - SCAN PM CDT CBC W/PLT COUNT & AUTO Routine 02/23/2020 6:14 R esults for this DIFFERENTIAL AM CDT procedure are i n the results section. TSH/FREE T4 IF Routine 02/23/2020 6:14 Results f or this INDICATED AM CDT procedure are i n the results section. VITAMIN D, 25-HYDROXY Routine 02/23/2020 6:14 Re sults for this AM CDT procedure are i n the results section. MAGNESIUM Routine 02/23/2020 6:14 Results for this AM CDT procedure are i n the results section. CBC W/PLT COUNT & AUTO Routine 02/23/2020 6:14 R esults for this DIFFERENTIAL AM CDT procedure are i n the results section. BASIC METABOLIC PANEL Routine 02/23/2020 6:14 Re sults for this (7) AM CDT procedure are i n the results section. STOOL PATH CHARGE Routine 02/22/2020 1:38 Result s for this PM CDT procedure are i n the results section. FECAL FAT, Routine 02/22/2020 1:38 Results for this QUANTITATIVE PM CDT procedure are i n the results section. PANCREATIC ELASTASE, Routine 02/22/2020 1:38 Res ults for this FECAL PM CDT procedure are i n the results section. STOOL CULTURE + SHIGA Routine 02/22/2020 1:38 Re sults for this TOXIN PM CDT procedure are i n the results section. C. DIFFICILE GDH TOXIN Routine 02/22/2020 1:38 R esults for this PM CDT procedure are i n the results section. ABORH, MANUAL STAT 02/22/2020 5:12 Results fo r this AM CDT procedure are i n the results section. CBC W/PLT COUNT & AUTO STAT 02/22/2020 4:02 R esults for this DIFFERENTIAL AM CDT procedure are i n the results section. TYPE AND SCREEN, STAT 02/22/2020 4:02 Results for this AUTOMATED AM CDT procedure are i n the results section. CBC W/PLT COUNT & AUTO STAT 02/22/2020 4:02 R esults for this DIFFERENTIAL AM CDT procedure are i n the results section. BASIC METABOLIC PANEL STAT 02/22/2020 4:02 Re sults for this (7) AM CDT procedure are i n the results section. MAGNESIUM Routine 02/22/2020 4:02 Results for this AM CDT procedure are i n the results section. APTT Routine 02/22/2020 4:02 Results for this AM CDT procedure are i n the results section. PROTHROMBIN TIME/INR Routine 02/22/2020 4:02 Res ults for this AM CDT procedure are i n the results section. FL STEAM TRAP MAN IN OR 30 Routine 02/22/2020 12:03 Res ults for this MINUTE INCREMENTS AM CDT procedure are in the results section. SURGICALLY OBTAINED Routine 02/21/2020 11:39 Resu lts for this CULTURE + GRAM STAIN PM CDT procedu re are in the results section. SURGICALLY OBTAINED Routine 02/21/2020 11:29 Resu lts for this CULTURE + GRAM STAIN PM CDT procedu re are in the results section. SURGICALLY OBTAINED Routine 02/21/2020 11:27 Resu lts for this CULTURE + GRAM STAIN PM CDT procedu re are in the results section. CYSTOSCOPY,INSERTION 02/21/2020 8:00 Stones in the URETERAL STENTS PM CDT urinary tract BLOOD CULTURE Routine 02/21/2020 7:42 Results fo r this PM CDT procedure are i n the results section. CBC W/PLT COUNT & AUTO Routine 02/21/2020 7:37 R esults for this DIFFERENTIAL PM CDT procedure are i n the results section. LACTIC ACID, VENOUS Routine 02/21/2020 7:37 Resu lts for this PM CDT procedure are i n the results section. PT/APTT Routine 02/21/2020 7:37 Results for this PM CDT procedure are i n the results section. COMPREHENSIVE Routine 02/21/2020 7:37 Results fo r this METABOLIC PANEL PM CDT procedure ar e in the results section. CBC W/PLT COUNT & AUTO Routine 02/21/2020 7:37 R esults for this DIFFERENTIAL PM CDT procedure are i n the results section. BLOOD CULTURE Routine 02/21/2020 7:36 Results fo r this PM CDT procedure are i n the results section. SCREEN, Routine 02/21/2020 7:25 Result s for this URINE PM CDT procedure are i n the results section. URINALYSIS W/ REFLEX Routine 02/21/2020 7:25 Res ults for this URINE CULTURE PM CDT procedure are in the results section. URINE CULTURE Routine 02/21/2020 7:25 Results fo r this PM CDT procedure are i n the results section. SARS-COV2/RT-PCR ([facility] STAT 02/21/2020 6:55 R esults for this & REF LABS) PM CDT procedure are i n the results section. after 03/01/2019 Results RHYTHM STRIP - SCAN (02/26/2020 1:30 PM CDT) Narrative Performed At This result has an attachment that is no t available. CBC with platelet count + automated diff (02/25/2020 4:01 AM CDT)Only the most recent of5 resultswithin the time period is included. WBC 5.2 3.5 - 10.5 K/L [facility] RBC 3.19 (L) 3.93 - 5.22 M/L [facility] Hemoglobin 7.4 (L) 11.2 - 15.7 GM/DL [facility] Hematocrit 23.4 (L) 34.1 - 44.9 % [facility] MCV 73.4 (L) 79.4 - 94.8 fL [facility] MCH 23.2 (L) 25.6 - 32.2 pg [facility] MCHC 31.6 (L) 32.2 - 35.5 GM/DL [facility] RDW 17.0 (H) 11.7 - 14.4 % [facility] Platelets 309 150 - 450 K/CU MM [facility] MPV 10.5 9.4 - 12.[address] [facility] nRBC 0 0 - 0 /[address] [facility] % Neutros 71 % [facility] % Lymphs 13 % [facility] % Monos 10 % [facility] % Eos 1 % [facility] % Baso 0 % [facility] # Neutros 3.70 1.56 - 6.13 K/L [facility] # Lymphs 0.68 (L) 1.18 - 3.74 K/L [facility] # Monos 0.51 (H) 0.24 - 0.36 K/L [facility] # Eos 0.07 0.04 - 0.36 K/L [facility] # Baso 0.01 0.01 - 0.08 K/L [facility] Immature Granulocytes-Relative 4 (H) 0 - 1 % C HI [facility] Specimen Blood Performing Organization Address City/State/Zipcode Phone Number [facility] [address] [place] [address] CENTER Magnesium (02/25/2020 4:01 AM CDT)Only the most recent of4 resultswithin the time period is included. Magnesium 1.8 1.6 - 2.6 mg/dL [facility] Specimen Blood Narrative Performed At Media Consultant Outside Sales ID - GIUSEPPE [facility] Performing Organization Address [facility] Phone Number [facility] [address] [place] [address] [place] Basic Metabolic Panel (02/25/2020 4:01 AM CDT)Only the most recent of4 results within the time period is included. Sodium 139 136 - 145 meq/L [facility] Potassium 3.7 3.5 - 5.1 meq/L [facility] Chloride 109 (H) 98 - 107 meq/L [facility] CO2 22 22 - 29 meq/L [facility] BUN 27 (H) 7 - 21 mg/dL [facility] Creatinine 1.44 (H) 0.57 - 1.25 mg/dL [facility] Glucose 78 70 - 105 mg/dL [facility] Calcium 9.1 8.4 - 10.2 mg/dL [facility] EGFR 49Comment: ESTIMATED GFR IS mL/min/1.73 sq m [facility] NOT ACCURATE CREATININE [facility] CLEARANCE IN PREDICTING GLOMERULAR FILTRATION RATE. ESTIMATED GFR IS NOT APPLICABLE FOR DIALYSIS PATIENTS. Specimen Blood Narrative Performed At Media Consultant Outside Sales ID - [facility] Performing Organization Address City/[facility]/Zipcode Phone Number [facility] [address] [place] [address] [place] TRANSFUSION SERVICE REPORT - SCAN (02/23/2020 6:12 PM CDT) Narrative Performed At This result has an attachment that is no t available. TSH/Free T4 If Indicated (02/23/2020 6:14 AM CDT) TSH 1.404 0.350 - 4.940 uIU/mL [facility] Specimen Blood Narrative Performed At Media Consultant Outside Sales ID - DB [facility] Performing Organization Address City/[facility]/Zipcode Phone Number [address] [address] CENTER Vitamin D, 25-Hydroxy (02/23/2020 6:14 AM CDT) Vitamin D 25-Hydroxy 6.2 (L) 6.6 - 49.9 ng/mL [facility] Specimen Blood Narrative Performed At Effective 04/24/2017: Reference Range Ch jcarlos [facility] New: 6.6-49.9 ng/mL Previous: 13.0-47.8 ng/mL Recommended Vitamin D Target Range: 30.0-40.0 ng/mL Media Consultant Outside Sales ID - DB Performing Organization Address [facility] Phone Number [address] [address] [place] Clostridium difficile GDH Toxin (02/22/2020 1:38 PM CDT) C. Difficle Toxin Negative Negative [facility] C. Difficile G[facility] Antigen NegativeComment: No Negative [facility] indication of Clostridium [facility] difficile infection and no colonization. Discontinue enteric isolation and therapy. Specimen Stool Narrative Performed At Testing performed by [employer] [facility] Assay.For GDH, published sensitivity of the assay is 98.7% compared to cytotoxicity testing.For Toxin AB, published sensitivity is 87.8% and specificity 99.4% compared to cytotoxicity testing. Verification of kit performance was done by the [facility] Microbiology Lab prior to clinical use. Performing Organization Address City/[facility] Phone Number [address] [address] [place] STOOL PATH CHARGE (02/22/2020 1:38 PM CDT) Pathogen exam charged Done [facility] Specimen Stool Performing Organization Address [facility] Phone Number [place] [address] [place] [address] CENTER Pancreatic elastase, fecal (02/22/2020 1:38 PM CDT) Pancreatic Elastase >500 mcg/g [facility] Comment: [facility] Adult and Pediatric Reference Ranges for Pancreatic Elastase-1: Normal:>200 mcg/g Moderate Pancreatic Insufficiency: 100-200 mcg/g Severe Pancreatic Insufficiency:<100 mcg/g Elastase-1 (E-1) assay results are expressed in mcg/g, which represent mcg E1/g feces. It is not necessary to interrupt enzyme substitution therapy. Specimen Stool Narrative Performed At Performing Lab [facility] [address] [place] [address] Tati Wallace MD, PhD, KATHRYN Performing Organization Address [facility] Phone [place] [address] INC[facility]ATED [address] [facility] Fecal fat, quantitative (02/22/2020 1:38 PM CDT) Total Weight 5 g [facility] Collection Time Hrs NOT GIVEN h [facility] Fecal Lipids, Total SEE BELOW <7 g/24 h [facility] Comment: INC[facility]PORATED RESULT: No collection duration received. Specimen treate d as a random collection. Therefore, the results are reported in weight of lipid per gram of stool. Reference ranges do not apply. The random fecal lipid result was 0.0075 gram lipids per gram of stool. This test was developed and its analytical perfo rmance characteristics have been determined by [facility]. It has not been cleared or approved by FDA. This assay has been validated pursuant to the CLIA regulations and is used for clinical purposes. Specimen Stool Narrative Performed At Performing Lab [facility] [facility] [address] [address] [place] [address] Tati Wallace MD, PhD, KATHRYN Performing Organization Address [facility] Phone Number [email or web address] [facility] [place] [address] INC[facility]ATED [address] [address] [facility] Stool culture + Shiga toxin (02/22/2020 1:38 PM CDT) Result No Salmonella, Shigella or [facility] Campylobacter isolated [facility] Specimen Stool Narrative Performed At Unable to test for Shiga Toxin 1 due to [facility] insufficient growth of specimen. Unable to test for Shiga Toxin 2 due to insufficient growth of specimen. Resubmit new specimen if clinically indicated. Performing Organization Address City/[facility]/Zipcode Phone Number [address] [address] CENTER ABORH, manual (02/22/2020 5:12 AM CDT) ABO Grouping O [facility] Rh Factor POS [facility] Specimen Blood Performing Organization Address [facility] Phone Number [address] [address] Type and screen, automated (02/22/2020 4:02 AM CDT) ABO/RH AUTOMATED (BEAKER) O POSITIVE [facility] Ab Scrn NEGATIVE [facility] Specimen Blood Performing Organization Address [facility] Phone Number [address] [address] aPTT (02/22/2020 4:02 AM CDT) PTT 47.6 (H) 22.5 - 36.0 seconds [facility] Specimen Blood Performing Organization Address City/[facility]/Zipcode Phone Number [address] [address] CENTER Prothrombin time/INR (02/22/2020 4:02 AM CDT) Protime 14.5 (H) 11.9 - 14.2 seconds [facility] INR 1.[address] [facility] Specimen Blood Narrative Performed At Effective 12/10/2018: PT Reference Range [facility] Change New: 11.9-14.2Previous: 11.7-14.7 RECOMMENDED COUMADIN/WARFARIN INR THERAPY RANGES STANDARD DOSE: 2.0-3.0Includes: PROPHYLAXIS for venous thrombosis, systemic embolization; TREATMENT for venous thrombosis and/or pulmonary embolus. HIGH RISK: Target INR is 2.5-3.5 for patients wiht mechanical heart valves. Performing Organization Address City/[facility]/Zipcode Phone Number [place] [phone] [place] [address] CENTER FL graduate assistant athletic trainer in or 30 minute increments (02/22/2020 12:03 AM CDT) Specimen Narrative Performed At Fluoroscopic unit utilized for a procedure performed i n the OR.No GE RIS interpretation was requested.Refer to the operativ e report for findings.Refer to PACS for patient radiation dose information. Procedure Note Interface, External Ris In - 02/22/2020 6:08 PM CDT Fluoroscopic unit utilized for a procedu re performed in the OR. No interpretation was requested. Refer to the operative r eport for findings. Refer to PACS for patient radiation dose information. Performing Organization Address [facility] Phone Number GE RIS Surgically obtained culture + gram stain (02/21/2020 11:39 PM CDT)Only the most recent of3 resultswithin the time period is included. Result From Broth Only Same organis m has been isolated from culture(s) of the same body site and collection date. Repeat identification performed only after consultation with the clinical microbiology laboratory. (A) [facility] Comment: MEDICAL CENTER Refer to previous culture of Prevotella bivia Gram Stain Result 3+ WBCs [facility] Gram Stain Result 2+ gram negative rods [facility] Specimen Urine Narrative Performed At [facility] Performing Organization Address City/[facility]/Zipcode Phone Number [place] [phone] [place] [address] CENTER Blood Culture - Routine (Left Venipuncture) (02/21/2020 7:42 PM CDT)Only the most recent of2 resultswithin the time period is included. Result No growth in 5 days [facility] Specimen Blood Performing Organization Address City/[facility]/Zipcode Phone Number [address] [address] CENTER PT/aPTT (02/21/2020 7:37 PM CDT) Protime 15.2 (H) 11.9 - 14.2 seconds [facility] INR 1.[address] [facility] PTT 46.7 (H) 22.5 - 36.0 seconds [facility] Specimen Blood Narrative Performed At Effective 12/10/2018: PT Reference Range [facility] Change New: 11.9-14.2Previous: 11.7-14.7 RECOMMENDED COUMADIN/WARFARIN INR THERAPY RANGES STANDARD DOSE: 2.0-3.0Includes: PROPHYLAXIS for venous thrombosis, systemic embolization; TREATMENT for venous thrombosis and/or pulmonary embolus. HIGH RISK: Target INR is 2.5-3.5 for patients wiht mechanical heart valves. Performing Organization Address City/[facility]/Zipcode Phone Number [address] [address] CENTER Lactic acid, venous (02/21/2020 7:37 PM CDT) Lactate, Venous 1.25 0.50 - 2.20 mmol/L [facility] Specimen Blood Narrative Performed At Media Consultant Outside Sales ID - AMANDA Al [facility] Performing Organization Address City/State/Zipcode Phone Number [address] [address] CENTER Comprehensive metabolic panel (02/21/2020 7:37 PM CDT) Protein, Total 6.4 6.0 - 8.3 gm/dL [facility] Albumin 2.6 (L) 3.5 - 5.0 g/dL [facility] Alkaline Phosphatase 621 (H) 40 - 150 U/L [facility] Total Bilirubin 0.6 0.2 - 1.2 mg/dL [facility] Sodium 133 (L) 136 - 145 meq/L [facility] Potassium 4.3 3.5 - 5.1 meq/L [facility] Chloride 108 (H) 98 - 107 meq/L [facility] CO2 16 (L) 22 - 29 meq/L [facility] BUN 42 (H) 7 - 21 mg/dL [facility] Creatinine 2.48 (H) 0.57 - 1.25 mg/dL [facility] Glucose 133 (H) 70 - 105 mg/dL [facility] Calcium 10.0 8.4 - 10.2 mg/dL [facility] AST 23 5 - 34 U/L [facility] ALT 29 6 - 55 U/L [facility] EGFR 26Comment: ESTIMATED GFR mL/min/1.73 sq m [facility] IS NOT ACCURATE [facility] CREATININE CLEARANCE IN PREDICTING GLOMERULAR FILTRATION RATE. ESTIMATED GFR IS NOT APPLICABLE FOR DIALYSIS PATIENTS. Specimen Blood Narrative Performed At Media Consultant Outside Sales ID - AMANDA F [facility] Performing Organization Address City/State/Zipcode Phone Number [facility] [address] [place] [address] CENTER Urinalysis w/Microscopic + Reflex to Culture (02/21/2020 7:25 PM CDT) Color, UA Yellow [facility] Clarity, UA Hazy [facility] Specific [place], UA 1.009 1.001 - 1.035 [facility] pH, UA 6.0 5.0 - 8.[address] [facility] Protein, UA 50 mg/dL (A) Negative [facility] Glucose, UA Negative Negative [facility]3][facility] Ketones, UA Negative Negative [facility] Bilirubin, UA Negative Negative [facility] Blood, UA Large (A) Negative [facility] Nitrite, UA Negative Negative [facility] Leukocytes, UA Large (A) Negative [facility] Urobilinogen, UA 0.2 0.2 - 1.0 mg/dL [facility] RBC, UA 17 /HPF [facility] WBC, UA 261 /HPF [facility] Mucus Rare [facility] Squam Epithel, UA <1 /HPF [facility] Granular Casts, UA 1 /LPF [facility] Yeast Few [facility] Specimen Source [facility] Specimen Urine Narrative Performed At [employer] Outside Sales ID - [auto] [facility] [employer] Consult[employer] Outside Sales ID - tech Performing Organization Address City/[facility]/Zipcode Phone Number [address] [address] [place] Screen, urine (02/21/2020 7:25 PM CDT) Preg Test, Ur Negative [facility] Specimen Urine Performing Organization Address [facility]/Zipcode Phone Number [address] [address] [place] Urine culture (02/21/2020 7:25 PM CDT) Result 80-89,000 col/mL skin erlinda [facility] Result 80-89,000 col/mL Diphtheroid (A) [facility] Specimen Urine Narrative Performed At [facility] Performing Organization Address City/State/Zipcode Phone Number [facility] [address] [place] [address] CENTER SARS-CoV2/RT-PCR (Asymptomatic ONLY) (02/21/2020 6:55 PM CDT) SARS-COV2/RT-PCR Negative Not Detected, Negative, [facility] See external report for [facility] CENTER linked test SARS-COV-2 PERFORMING LAB BSC [facility] Specimen Other Narrative Performed At Negative results do not preclude SARS-CoV-2 [facility] infection and should not be used as the sole basis for patient management decisions. Negative results must be combined with clinical observations, patient history, and epidemiological information. A false negative result may occur if a specimen is improperly collected, transported or handled. The limit of detection for this assay is 250 copies/mL. This SARS CoV-2 test is a rapid, real-time RT-PCR test intended for the qualitative detection of nucleic acid from SARS-CoV-2 in a nasopharyngeal swab specimen collected from individuals suspected of COVID-19 by their healthcare provider. This test has not been Food and Drug Administration (FDA) cleared or approved and has been authorized by FDA under an Emergency Use Authorization (EUA). This EUA will be effective until the declaration that circumstances exist justifying the authorization of the emergency use of in vitro diagnostic tests for detection and/or diagnosis of COVID-19 is terminated under Section 564(b)(2) of the Act or the EUA is revoked under Section 564(g) of the Act. Fact Sheet for Healthcare Providers: https://www.[employer]/Documents/Xpert%20Xpre ss%20SARS%20CoV-2/Fact%20Sheets/302-6349%20SAR S-COV-2%20HEALTHCARE%20PROVIDERS%20FACT%20SHEE T.pdf Fact Sheet for Healthcare Patients: https://www.[employer]/Documents/Xpert%20Xpre ss%20SARS%20CoV-2/Fact%20Sheets/302-3801%20SAR S-COV-2%20PATIENT%20FACT%20SHEET.pdf Performing Laboratory: [address] [place] [address] Performing Organization Address City/State/Zipcode Phone Number [address] [address] CENTER after 03/01/2019 Advance Directives For more information, please contact:[address] [phone] Code Status Date Activated Date Inactivated Comments Full Code 02/21/2020 5:19 PM 02/25/2020 7:36 PM This code status was determined by: Patient
--- OUTSIDE RECORDS SUMMARY | 2020-03-01 11:08 | XMS REPORT | Continuity of Care Document ---
:[address] [facility] t Address [address] [place] [address] Care Team Providers Name Role Phone Margareth KWONG Attending Clinician Unavailable Margareth Kwong MD Attending Clinician Myrtle TELLEZ, In Attending Clinician Brian TELLEZ, PJasson Attending Clinician Rome Ayoub MD Attending Clinician Marilu TELLEZ, Esme Attending Clinician DR NEMO Attending Clinician Unavailable Scotty TELLEZ Attending Clinician ROME AYOUB Admitting Clinician Unavailable DR NEMO Admitting Clinician Unavailable Problems Condition Condition Condition Status Onset Resolution Last Treating Co mments Source Name Details Category Date Date Treatment Clinician Date Obstructiv Obstructiv Disease Active [facility] uropathy e uropathy 02-20 kes - 00:00: Medical [place] Sepsis Sepsis Disease Active [facility] secondary secondary 02-20ke s - to UTI to UTI 00:00: Medical [place] MARIA GUADALUPE (acute MARIA GUADALUPE (acute Disease Active [facility] kidney kidney 02-20 - injury) injury) 00:00: Medical 00 [place] Sarcoidosi Sarcoidosi Disease Active [facility] s s 02-20kes - 00:00: Medical [place] Ureteral Ureteral Disease [facility] stone with 02-20 kes - hydronephr hydronephr 00:00: Me dical osis osis 00 [place] Stones in Stones in Disease Active Overview: [facility] the 02-20 Added [facility] - urinary urinary 00:00: automatic Medic al tract tract 00 ally from [place] request for surgery [id number] Allergies, Adverse Reactions, Alerts Allergy Allergy Status Severity Reaction(s) Onset Inactive Treating Comm ents Source Name Type Date Date Clinician Penicill Propensi Active Augmentin [facility] to 02-28 --"swelli [facility] - adverse 00:00: ng of Medical reaction 00 arms, Center s feet and lips" Iodine Drug Active Hives [facility] And Allergy 02-20 [facility] - Iodide 00:00: Medical Containi 00 Center ng Products Shellfis Propensi Active Hives [facility] ty to 02-20 [facility] - Containi adverse 00:00: Medical ng reaction 00 Center Products s Social History Social Habit Start Date Stop Date Quantity Comments Source Sex Assigned At [facility] - Medical [place] Medications Ordered Filled Start Stop Current Ordering Indication Dosage Frequency Signature Comments Components Source Medication Medication Date Date Medication? Clinician (SIG) Name Name tamsulosin Yes .4mg QD Take 1 [facility] (FLOMAX) 02-25 capsule [facility] - 0.4 mg Cap 00:00: (0.4 mg Medi fabiola 24 hr 00 total) by [place] capsule mouth daily. predniSONE 2019-0 2020- Yes 10mg QD Take [address] [address] (DELTASONE) 02-25 11-12 tablet (10 L ukes - 10 MG 00:00: 23:59 mg total) Medica l tablet 00 :00 by mouth Center daily for 90 days. pantoprazol 2019-0 2020- Yes 40mg Q.5D Take [address] e 02-24-12 tablet (40 [facility] - (PROTONIX) 00:00: 23:59 mg total) M edical 40 MG 00 :00 by mouth 2 [place] tablet (two) times daily for 30 days. amoxicillin 2019-0 2020- No 1{tbl} Q.5D Take [address] -clavulanat 02-24 tablet by kes - e 00:00: 00:00 mouth 2 Medical (AUGMENTIN) 00 :00 (two) [place] 875-125 mg times per tablet daily for 14 days. phenazopyri 95mg Take 1 [facility] dine 02-24 08-16 tablet (95 [facility] - (PYRIDIUM) 00:00: 23:59 mg total) M edical 95 MG 00 :00 by mouth 3 Center tablet (three) times daily with meals for 3 days. Vital Signs Vital Name Observation Time Observation Value Comments Source Systolic blood 2020-02-25 11:05:00 133 mm[Hg] [facility] Diastolic blood 2020-02-25 11:05:00 85 mm[Hg] [facility] Heart rate 2020-02-25 11:05:00 99 /min [facility] Body temperature 2020-02-25 11:05:[address] [facility] Respiratory rate 2020-02-25 11:05:00 18 /min [facility] Oxygen saturation in 2020-02-25 11:05:00 100 /min [facility] Arterial blood by Medical Ce nter Pulse oximetry Procedures Procedure Date / Time Performed Performing Clinician [facility] e RHYTHM STRIP - SCAN 2020-02-26 13:30:21 Provider, Default [facility] BASIC METABOLIC PANEL (7) 2020-02-25 04:01:00 Arnulfo Iraheta In [facility] MAGNESIUM 2020-02-25 04:01:[address] [facility] CBC W/PLT COUNT & AUTO 2020-02-25 04:01:00 Arnulfo Iraheta In [facility] BASIC METABOLIC PANEL (7) 2020-02-24 03:59:00 Arnulfo Iraheta In [facility] MAGNESIUM 2020-02-24 03:59:[address] [facility] CBC W/PLT COUNT & AUTO 2020-02-24 03:59:00 Arnulfo Iraheta In [facility] TRANSFUSION SERVICE 2020-02-23 18:12:34 Provider, Default [facility] REPORT - SCAN [facility] BASIC METABOLIC PANEL (7) 2020-02-23 06:14:00 Arnulfo Iraheta In [facility] MAGNESIUM 2020-02-23 06:14:[address] [facility] VITAMIN D, 25-HYDROXY 2020-02-23 06:14:[address] [facility] TSH/FREE T4 IF INDICATED 2020-02-23 06:14:[address] [facility] CBC W/PLT COUNT & AUTO 2020-02-23 06:14:00 Arnulfo Iraheta In [facility] C. DIFFICILE GDH TOXIN 2020-02-22 13:38:00 Arnulfo Iraheta In [facility] STOOL CULTURE + SHIGA 2020-02-22 13:38:[address] [facility] PANCREATIC ELASTASE, 2020-02-22 13:38:00 Arnulfo Iraheta In [facility] FECAL FAT, QUANTITATIVE 2020-02-22 13:38:[address] [facility] STOOL PATH CHARGE 2020-02-22 13:38:00 Arnulfo Iraheta In [facility] ABORH, MANUAL 2020-02-22 05:12:[address] [facility] PROTHROMBIN TIME/INR 2020-02-22 04:02:00 Kurt Lin [facility] APTT 2020-02-22 04:02:00 Kurt Lin [facility] MAGNESIUM 2020-02-22 04:02:[address] [facility] BASIC METABOLIC PANEL (7) 2020-02-22 04:02:00 Ra pedro Lin [facility] TYPE AND SCREEN, 2020-02-22 04:02:00 Kurt Lin [facility] CBC W/PLT COUNT & AUTO 2020-02-22 04:02:00 Kurt Lin [facility] [place] CHEMIST HELPER IN OR 30 2020-02-22 00:03:00 Freddie Ayoub [facility] SURGICALLY OBTAINED 2020-02-21 23:39:28 Freddie Ayoub I [facility] - CULTURE + GRAM STAIN Medical Emir ter SURGICALLY OBTAINED 2020-02-21 23:29:32 Freddie Ayoub [place] [facility] I [facility] - CULTURE + GRAM STAIN Medical [facility] ter SURGICALLY OBTAINED 2020-02-21 23:27:51 Sreedhar Ayoubyam [place] CH I [facility] - CULTURE + GRAM STAIN Medical [facility] ter CYSTOSCOPY,INSERTION 2020-02-21 20:00:00 Freddie Ayoub HI [facility] URETERAL STENTS [facility] BLOOD CULTURE 2020-02-21 19:42:[address] [facility] COMPREHENSIVE METABOLIC 2020-02-21 19:37:00 Arnulfo Iraheta In [facility] PT/APTT 2020-02-21 19:37:[address] [facility] LACTIC ACID, VENOUS 2020-02-21 19:37:00 Arnulfo Iraheta In [facility] CBC W/PLT COUNT & AUTO 2020-02-21 19:37:00 Arnulfo Iraheta In [facility] BLOOD CULTURE 2020-02-21 19:36:[address] [facility] URINE CULTURE 2020-02-21 19:25:[address] [facility] URINALYSIS W/ REFLEX 2020-02-21 19:25:00 Arnulfo Iraheta In [facility] URINE CULTURE [facility] SCREEN, URINE 2020-02-21 19:25:00 Kurt Lin [facility] SARS-COV2/RT-PCR ([facility] & 2020-02-21 18:55:00 Kishor Lin [facility] LABS) [facility] Encounters Start End Encounter Admission Attending Care Care Encounter Source Date/Time Date/Time Type Type Clinicians Facility Department ID 2019-05-07 2019-05-07 Outpatient Axel [facility]STER [facility] RAD [id number] [place] 12:04:00 23:59:00 JAMEY [facility] 2019-03-21 2019-03-21 Emergency Fajardo [facility] [id number] 06:46:08 09:09:00 Wily Mar [id number] [place] [id number] [place] [id number] Results Test Description Test Time Test Comments Results Result Comments Source Pancreatic elastase, fecal 2020-02-29 19:39:00 Test Item Value Reference Range Interpretation Comme nts Pancreatic Elastase >500 mcg/g Adult a nd Pediatric Reference (test code = 16047-0) Ranges for Pancreatic Elastase-1: Normal: >2 00 mcg/gModerate P ancreatic Insufficiency: 100-200 mcg/g Severe Pancrea tic Insufficiency: <100 mcg/g Elastase-1 (E-1 ) assay results are expressedin mcg/g, which represent mcg E 1/g feces. It is not necessar y to interrupt enzymesubstitut ion therapy. ELADIA (test code = ELADIA) Performing Lab EZ [facility] [place] [address] [place] [address] Tati Wallace MD, PhD, KATHRYN [facility], [id number] 15:50:00 Test Item Value Reference Range Interpretation Comments Total Weight 5 g (test code = 5518863) Collection Time NOT GIVEN h Hrs (test code = 6814761) Fecal Lipids, SEE BELOW <7 g/24 h RESULT: No co llection Total (test code duration re ceived. = ) Specimen treate d as a random collection.Ther efore, the results are reported in lazara ght of lipid per gram of stool.Reference ranges do not apply. T he random fecal li pid result was 0.00 75 gramlipids per gram of stool. This gentry t was developed and i ts analytical perf ormance characteristics havebeen determ ined by [facility] .It has not been cleare d or approved by FDA . This assay has been validatedpursua nt to the CLIA regula tions and is used for clinical purpos es. ELADIA (test code = Performing Lab ELADIA) EZ [facility] [place] [address] [place] [address] Tati Wallace MD, PhD, KATHRYN [facility] - Routine (Left Venipuncture) 2020-02-26 21:00:00 Test Item Value Reference Range Interpretation Comments Result (test code = No growth in 5 days 6463-4) [facility] [id number] 21:00:00 Test Item Value Reference Range Interpretation Comments CULTURE (BEAKER) (test No growth in 5 days code = 1095) BLOOD [id number] 21:00:00 Test Item Value Reference Range Interpretation Comments CULTURE (BEAKER) (test No growth in 5 days code = 1095) Surgically obtained culture + gram [id number] 09:20:00 Test Item Value Reference Interpretation Comments Range Result (test code = From Broth Only A Refer to previous 63-4) Same organism has culture been isolated from ofPrevote lla culture(s) of the bivia same body site and collection date. Repeat identification performed only after consultation with the clinical microbiology laboratory. Gram Stain Result 2+ gram negative (test code = 1123) rods ELADIA (test code = ELADIA) Lab Interpretation Abnormal (test code = 07587-9) [facility] C[facility] + GRAM [id number] 09:20:00 Test Item Value Reference Range Interpretation Comments CULTURE (BEAKER) A From Broth Only Same (test code = organism has be en 1095) isolated from culture(s) of t he same body site and collection date . Repeat identifi cation performed only after consultation wi th the clinical microb iology laboratory.Refe r to previous cultur e ofPrevotella bi via GRAM STAIN 3+ WBCs RESULT (BEAKER) (test code = 1123) GRAM STAIN 2+ gram negative RESULT (BEAKER) rods (test code = 307502) SURGICALLY OBTAINED CULTURE + GRAM [id number] 09:20:00 Test Item Value Reference Range Interpretation Comments CULTURE (BEAKER) A From Broth Only Same (test code = organism has be en 1095) isolated from culture(s) of t he same body site and collection date . Repeat identifi cation performed only after consultation wi the clinical microb iology laboratory.Refe r to previous cultur e ofPrevotella bi via GRAM STAIN 4+ WBCs RESULT (BEAKER) (test code = 1123) GRAM STAIN 4+ gram negative RESULT (BEAKER) rods (test code = 757357) SURGICALLY OBTAINED CULTURE + GRAM [id number] 09:20:00 Test Item Value Reference Range Interpretation Comments CULTURE (BEAKER) A From Broth Only (test code = Prevotella bivi a 1095) GRAM STAIN RESULT 4+ WBCs (BEAKER) (test code = 1123) GRAM STAIN RESULT 4+ gram negative (BEAKER) (test rods code = 50284) Urine [id number] 11:43:00 Test Item Value Reference Range Interpretation Comments Result (test code = 80-89,000 col/mL A 6463-4) Diphtheroid ELADIA (test code = ELADIA) Lab Interpretation (test Abnormal code = 74394-7) [facility] [id number] 04:43:00 Test Item Value Reference Range Interpretation Comments Sodium (test code = 139 meq/L 788-321 9140-2) Potassium (test code = 3.7 meq/L 3.5-5.1 2823-3) Chloride (test code = 109 meq/L 98-107 H 2075-0) CO2 (test code = 22 meq/L 22-29 2028-9) BUN (test code = 27 mg/dL 7-21 H 3094-0) Creatinine (test code 1.44 mg/dL 0.57-1.25 H = 2160-0) Glucose (test code = 78 mg/dL 70-105 2345-7) Calcium (test code = 9.1 mg/dL 8.4-10.2 28282-3) EGFR (test code = 49 mL/min/1.73 [place] [address]-3) NOT ACCURATE CREATININE CLEARANCE IN PREDICTING GLOMERULAR FILTRATION RATE . ESTIMATED GFR I S NOT APPLICABLE FOR DIALYSIS PATIENTS. ELADIA (test code = ELADIA) Choir Director ID - EDASI Lab Interpretation Abnormal (test code = 19411-2) [facility] 04:43:00 Test Item Value Reference Range Interpretation Comments Magnesium (test code = 1.8 mg/dL 1.6-2.6 41367-0) ELADIA (test code = ELADIA) Choir Director ID - EDASI Lab Interpretation (test Normal code = 32572-8) [facility]-13 04:43:00 Test Item Value Reference Range Interpretation Comments MAGNESIUM (BEAKER) (test code = 1.8 mg/dL 1.6-2.6 627) Choir Director ID - EDASIBASIC METABOLIC [id number] 04:43:00 Test Item Value Reference Range Interpretation Comments SODIUM (BEAKER) 139 meq/L 136-145 (test code = 381) POTASSIUM (BEAKER) 3.7 meq/L 3.5-5.1 (test code = 379) CHLORIDE (BEAKER) 109 meq/L 98-107 H (test code = 382) CO2 (BEAKER) (test 22 meq/L 22-29 code = 355) BLOOD UREA NITROGEN 27 mg/dL 7-21 H (BEAKER) (test code = 354) CREATININE (BEAKER) 1.44 mg/dL 0.57-1.25 H (test code = 358) GLUCOSE RANDOM 78 mg/dL 70-105 (BEAKER) (test code = 652) CALCIUM (BEAKER) 9.1 mg/dL 8.4-10.2 (test code = 697) EGFR (BEAKER) (test 49 mL/min/1.73 ESTIMA ANSHU GFR IS code = 1092) sq m NOT ACCURATE CREATININE CLEARANCE IN PREDICTING GLOMERULAR FILTRATION RATE . ESTIMATED GFR I S NOT APPLICABLE FOR DIALYSIS PATIEN TS. Choir Director ID - EDASICBC with platelet count + automated [id number] 04:15:00 Test Item Value Reference Range Interpretation Comments WBC (test code = 6690-2) 5.2 3.5- 10.5 K/L RBC (test code = 789-8) 3.19 3.93- 5.22 M/L L MCHC (test code = 786-4) 31.6 32.2- 35.5 GM/DL L Hematocrit (test code = 4544-3) 23.4 % 34.1-44.9 L MCV (test code = 787-2) 73.4 fL 79.4-94.8 L MCH (test code = 785-6) 23.2 pg 25.6-32.2 L RDW (test code = 788-0) 17.0 % 11.7-14.4 H Platelets (test code = 777-3) 309 150- 450 K/CU MM MPV (test code = 74192-7) 10.5 fL 9.4-12.3 nRBC (test code = 413) 0 0- 0 /100 WBC % Neutros (test code = 429) 71 % % Lymphs (test code = 430) 13 % % Monos (test code = 431) 10 % % Eos (test code = 432) 1 % % Baso (test code = 437) 0 % # Neutros (test code = 670) 3.70 1.56- 6.13 K/L # Lymphs (test code = 414) 0.68 1.18- 3.74 K/L L # Monos (test code = 415) 0.51 0.24- 0.36 K/L H # Eos (test code = 416) 0.07 0.04- 0.36 K/L # Baso (test code = 417) 0.01 0.01- 0.08 K/L Immature Granulocytes-Relative 4 % 0-1 H (test code = 2801) Lab Interpretation (test code = Abnormal 59654-1) [facility] W/PLT COUNT & AUTO [id number] 04:15:00 Test Item Value Reference Range Interpretation Comments WHITE BLOOD CELL COUNT (BEAKER) 5.2 K/ L 3.5-10.5 (test code = 775) RED BLOOD CELL COUNT (BEAKER) 3.19 M/ L 3.93-5.22 L (test code = 761) HEMOGLOBIN (BEAKER) (test code = 7.4 GM/DL 11.2-15.7 L 410) HEMATOCRIT (BEAKER) (test code = 23.4 % 34.1-44.9 L 411) MEAN CORPUSCULAR VOLUME (BEAKER) 73.4 fL 79.4-94.8 L (test code = 753) MEAN CORPUSCULAR HEMOGLOBIN 23.2 pg 25.6-32.2 L (BEAKER) (test code = 751) MEAN CORPUSCULAR HEMOGLOBIN CONC 31.6 GM/DL 32.2-35.5 L (BEAKER) (test code = 752) RED CELL DISTRIBUTION WIDTH 17.0 % 11.7-14.4 H (BEAKER) (test code = 412) PLATELET COUNT (BEAKER) (test 309 K/CU MM 150-450 code = 756) MEAN PLATELET VOLUME (BEAKER) 10.5 fL 9.4-12.3 (test code = 754) NUCLEATED RED BLOOD CELLS 0 /100 WBC 0-0 (BEAKER) (test code = 413) NEUTROPHILS RELATIVE PERCENT 71 % (BEAKER) (test code = 429) LYMPHOCYTES RELATIVE PERCENT 13 % (BEAKER) (test code = 430) MONOCYTES RELATIVE PERCENT 10 % (BEAKER) (test code = 431) EOSINOPHILS RELATIVE PERCENT 1 % (BEAKER) (test code = 432) BASOPHILS RELATIVE PERCENT 0 % (BEAKER) (test code = 437) NEUTROPHILS ABSOLUTE COUNT 3.70 K/ L 1.56-6.13 (BEAKER) (test code = 670) LYMPHOCYTES ABSOLUTE COUNT 0.68 K/ L 1.18-3.74 L (BEAKER) (test code = 414) MONOCYTES ABSOLUTE COUNT (BEAKER) 0.51 K/ L 0.24-0.36 H (test code = 415) EOSINOPHILS ABSOLUTE COUNT 0.07 K/ L 0.04-0.36 (BEAKER) (test code = 416) BASOPHILS ABSOLUTE COUNT (BEAKER) 0.01 K/ L 0.01-0.08 (test code = 417) IMMATURE GRANULOCYTES-RELATIVE 4 % 0-1 H PERCENT (BEAKER) (test code = 2801) Stool culture + Shiga [id number] 10:04:00 Test Item Value Reference Range Interpretation Comments Result (test code = No Salmonella, Shigella or 6463-4) Campylobacter isolated ELADIA (test code = Unable to test for Shiga ELADIA) Toxin 1 due to insufficient growth of specimen.Unable to test for Shiga Toxin 2 due to insufficient growth of specimen.Resubmit new specimen if clinically indicated. [facility] CULTURE + SHIGA [id number] 10:04:00 Test Item Value Reference Range Interpretation Comments CULTURE (BEAKER) No Salmonella, Shigella (test code = 1095) or Campylobacter isolated Unable to test for Shiga Toxin 1 due to insufficient growth of specimen.Unable to test for Shiga Toxin 2 due to insufficient growth of specimen.Resubmit new specimen if clinically indicated.CBC W/PLT COUNT & AUTO DIFFERENTIAL 2020-02-24 05:39:00 Test Item Value Reference Range Interpretation Comments WHITE BLOOD CELL COUNT (BEAKER) 7.6 K/ L 3.5-10.5 (test code = 775) RED BLOOD CELL COUNT (BEAKER) 3.17 M/ L 3.93-5.22 L (test code = 761) HEMOGLOBIN (BEAKER) (test code = 7.2 GM/DL 11.2-15.7 L 410) HEMATOCRIT (BEAKER) (test code = 22.9 % 34.1-44.9 L 411) MEAN CORPUSCULAR VOLUME (BEAKER) 72.2 fL 79.4-94.8 L (test code = 753) MEAN CORPUSCULAR HEMOGLOBIN 22.7 pg 25.6-32.2 L (BEAKER) (test code = 751) MEAN CORPUSCULAR HEMOGLOBIN CONC 31.4 GM/DL 32.2-35.5 L (BEAKER) (test code = 752) RED CELL DISTRIBUTION WIDTH 17.2 % 11.7-14.4 H (BEAKER) (test code = 412) PLATELET COUNT (BEAKER) (test 296 K/CU MM 150-450 code = 756) MEAN PLATELET VOLUME (BEAKER) 11.4 fL 9.4-12.3 (test code = 754) NUCLEATED RED BLOOD CELLS 0 /100 WBC 0-0 (BEAKER) (test code = 413) NEUTROPHILS RELATIVE PERCENT 79 % (BEAKER) (test code = 429) LYMPHOCYTES RELATIVE PERCENT 10 % (BEAKER) (test code = 430) MONOCYTES RELATIVE PERCENT 10 % (BEAKER) (test code = 431) EOSINOPHILS RELATIVE PERCENT 0 % (BEAKER) (test code = 432) BASOPHILS RELATIVE PERCENT 0 % (BEAKER) (test code = 437) NEUTROPHILS ABSOLUTE COUNT 6.00 K/ L 1.56-6.13 (BEAKER) (test code = 670) LYMPHOCYTES ABSOLUTE COUNT 0.76 K/ L 1.18-3.74 L (BEAKER) (test code = 414) MONOCYTES ABSOLUTE COUNT (BEAKER) 0.74 K/ L 0.24-0.36 H (test code = 415) EOSINOPHILS ABSOLUTE COUNT 0.01 K/ L 0.04-0.36 L (BEAKER) (test code = 416) BASOPHILS ABSOLUTE COUNT (BEAKER) 0.00 K/ L 0.01-0.08 L (test code = 417) IMMATURE GRANULOCYTES-RELATIVE 2 % 0-1 H PERCENT (BEAKER) (test code = 2801) [id number] 05:37:00 Test Item Value Reference Range Interpretation Comments MAGNESIUM (BEAKER) (test code = 2.0 mg/dL 1.6-2.6 627) Choir Director ID - TRISH MBASIC METABOLIC [id number] 05:37:00 Test Item Value Reference Range Interpretation Comments SODIUM (BEAKER) 136 meq/L 136-145 (test code = 381) POTASSIUM (BEAKER) 3.3 meq/L 3.5-5.1 L (test code = 379) CHLORIDE (BEAKER) 108 meq/L 98-107 H (test code = 382) CO2 (BEAKER) (test 17 meq/L 22-29 L code = 355) BLOOD UREA NITROGEN 42 mg/dL 7-21 H (BEAKER) (test code = 354) CREATININE (BEAKER) 1.67 mg/dL 0.57-1.25 H (test code = 358) GLUCOSE RANDOM 83 mg/dL 70-105 (BEAKER) (test code = 652) CALCIUM (BEAKER) 9.5 mg/dL 8.4-10.2 (test code = 697) EGFR (BEAKER) (test 42 mL/min/1.73 ESTIMA ANSHU GFR IS code = 1092) sq m NOT ACCURATE CREATININE CLEARANCE IN PREDICTING GLOMERULAR FILTRATION RATE . ESTIMATED GFR I S NOT APPLICABLE FOR DIALYSIS PATIEN TS. Choir Director ID - TRISH MSTOOL PATH [id number] 11:24:00 Test Item Value Reference Range Interpretation Comments Pathogen exam charged (test code = Done 2380) [facility] PATH [id number] 11:24:00 Test Item Value Reference Range Interpretation Comments PATHOGEN EXAM CHARGED (BEAKER) (test Done code = 2381) [id number] 07:46:00 Test Item Value Reference Range Interpretation Comments MAGNESIUM (BEAKER) (test code = 2.1 mg/dL 1.6-2.6 627) Choir Director ID - DBBASIC METABOLIC [id number] 07:46:00 Test Item Value Reference Range Interpretation Comments SODIUM (BEAKER) 132 meq/L 136-145 L (test code = 381) POTASSIUM (BEAKER) 4.0 meq/L 3.5-5.1 (test code = 379) CHLORIDE (BEAKER) 106 meq/L 98-107 (test code = 382) CO2 (BEAKER) (test 17 meq/L 22-29 L code = 355) BLOOD UREA NITROGEN 44 mg/dL 7-21 H (BEAKER) (test code = 354) CREATININE (BEAKER) 2.02 mg/dL 0.57-1.25 H (test code = 358) GLUCOSE RANDOM 100 mg/dL 70-105 (BEAKER) (test code = 652) CALCIUM (BEAKER) 9.2 mg/dL 8.4-10.2 (test code = 697) EGFR (BEAKER) (test 33 mL/min/1.73 ESTIMA ANSHU GFR IS code = 1092) sq m NOT ACCURATE CREATININE CLEARANCE IN PREDICTING GLOMERULAR FILTRATION RATE . ESTIMATED GFR I S NOT APPLICABLE FOR DIALYSIS PATIEN TS. Choir Director ID - DBVitamin D, [id number] 07:30:00 Test Item Value Reference Range Interpretation Comments Vitamin D 25-Hydroxy 6.2 ng/mL 6.6-49.9 L (test code = 2764) ELADIA (test code = ELADIA) Effective 04/24/2017: Reference Range ChangeNew: 6.6-49.9 ng/mL Previous: 13.0-47.8 ng/mL Recommended Vitamin D Target Range: 30.0-40.0 ng/mLOperator ID - DB Lab Interpretation (test Abnormal code = 60210-6) [facility], [id number] 07:30:00 Test Item Value Reference Range Interpretation Comments VITAMIN D 25-OH (BEAKER) (test code 6.2 ng/mL 6.6-49.9 L = 2764) Effective 04/24/2017: Reference Range ChangeNew: 6.6-49.9 ng/mL Previous: 13.0-47.8 ng/mLRecommended Vitamin D Target Range: 30.0-40.0 ng/mLOperator ID - DBTSH/Free T4 If [id number] 07:19:00 Test Item Value Reference Range Interpretation Comments TSH (test code = 48009-1) 1.404 0.350- 4.940 uIU/mL ELADIA (test code = ELADIA) Choir Director ID - DB Lab Interpretation (test Normal code = 38824-8) [facility] T4 IF [id number] 07:19:00 Test Item Value Reference Range Interpretation Comments THYROID STIMULATING HORMONE 1.404 uIU/mL 0.350-4.940 (BEAKER) (test code = 772) Choir Director ID - DBCBC W/PLT COUNT & AUTO [id number] 07:03:00 Test Item Value Reference Range Interpretation Comments WHITE BLOOD CELL COUNT (BEAKER) 9.1 K/ L 3.5-10.5 (test code = 775) RED BLOOD CELL COUNT (BEAKER) 3.20 M/ L 3.93-5.22 L (test code = 761) HEMOGLOBIN (BEAKER) (test code = 7.2 GM/DL 11.2-15.7 L 410) HEMATOCRIT (BEAKER) (test code = 23.2 % 34.1-44.9 L 411) MEAN CORPUSCULAR VOLUME (BEAKER) 72.5 fL 79.4-94.8 L (test code = 753) MEAN CORPUSCULAR HEMOGLOBIN 22.5 pg 25.6-32.2 L (BEAKER) (test code = 751) MEAN CORPUSCULAR HEMOGLOBIN CONC 31.0 GM/DL 32.2-35.5 L (BEAKER) (test code = 752) RED CELL DISTRIBUTION WIDTH 17.4 % 11.7-14.4 H (BEAKER) (test code = 412) PLATELET COUNT (BEAKER) (test 299 K/CU MM 150-450 code = 756) MEAN PLATELET VOLUME (BEAKER) 11.0 fL 9.4-12.3 (test code = 754) NUCLEATED RED BLOOD CELLS 0 /100 WBC 0-0 (BEAKER) (test code = 413) NEUTROPHILS RELATIVE PERCENT 87 % (BEAKER) (test code = 429) LYMPHOCYTES RELATIVE PERCENT 6 % (BEAKER) (test code = 430) MONOCYTES RELATIVE PERCENT 6 % (BEAKER) (test code = 431) EOSINOPHILS RELATIVE PERCENT 0 % (BEAKER) (test code = 432) BASOPHILS RELATIVE PERCENT 0 % (BEAKER) (test code = 437) NEUTROPHILS ABSOLUTE COUNT 7.96 K/ L 1.56-6.13 H (BEAKER) (test code = 670) LYMPHOCYTES ABSOLUTE COUNT 0.56 K/ L 1.18-3.74 L (BEAKER) (test code = 414) MONOCYTES ABSOLUTE COUNT (BEAKER) 0.50 K/ L 0.24-0.36 H (test code = 415) EOSINOPHILS ABSOLUTE COUNT 0.00 K/ L 0.04-0.36 L (BEAKER) (test code = 416) BASOPHILS ABSOLUTE COUNT (BEAKER) 0.00 K/ L 0.01-0.08 L (test code = 417) IMMATURE GRANULOCYTES-RELATIVE 1 % 0-1 PERCENT (BEAKER) (test code = 2801) Clostridium difficile GDH [id number] 01:09:00 Test Item Value Reference Range Interpretation Comments C. Difficle Toxin Negative Negative (test code = 2887225361) C. Difficile GDH Negative Negative No indicati on of Antigen (test code = Clostri dium [id number]) difficile infection and n o colonization. Discontinue enteric isolati on and therapy. ELADIA (test code = Testing performed ELADIA) by Alere Rapid Cassette Assay. For GDH, published sensitivity of the assay is 98.7% compared to cytotoxicity testing. For Toxin AB, published sensitivity is 87.8% and specificity 99.4% compared to cytotoxicity testing.Verificati on of kit performance was done by the [facility] Microbiology Lab prior to clinical use. Lab Interpretation Normal (test code = 70181-4) [facility] [id number] 01:09:00 Test Item Value Reference Range Interpretation Comments CDT TOXIN (test code Negative Negative = [id number]) CDT GDH ANTIGEN (test Negative Negative No ind ication of code = [id number]) Clostridi um difficile infection and n o colonization. Discontinue ent [place] isolation and t herapy. Testing performed by Alere Rapid Cassette Assay. For GDH, published sensitivity of the assay is 98.7% compared to cytotoxicity testing. For Toxin AB, published sensitivity is 87.8% and specificity 99.4% compared to cytotoxicity testing.Verification of kit performance was done by the [facility] Microbiology Lab prior to clinical use.ABORH, [id number] 06:59:00 Test Item Value Reference Range Interpretation Comments ABO Grouping (test code = 2588) O Rh Factor (test code = 2589) POS [facility], [id number] 05:17:00 Test Item Value Reference Range Interpretation Comments ABO/RH AUTOMATED (BEAKER) (test O POSITIVE code = 2260) Ab Scrn (test code = 890-4) NEGATIVE [facility] 05:03:00 Test Item Value Reference Range Interpretation Comments MAGNESIUM (BEAKER) (test code = 1.9 mg/dL 1.6-2.6 627) Choir Director ID - EDASIBASIC METABOLIC [id number] 05:03:00 Test Item Value Reference Range Interpretation Comments SODIUM (BEAKER) 134 meq/L 136-145 L (test code = 381) POTASSIUM (BEAKER) 4.0 meq/L 3.5-5.1 (test code = 379) CHLORIDE (BEAKER) 110 meq/L 98-107 H (test code = 382) CO2 (BEAKER) (test 15 meq/L 22-29 L code = 355) BLOOD UREA NITROGEN 42 mg/dL 7-21 H (BEAKER) (test code = 354) CREATININE (BEAKER) 2.23 mg/dL 0.57-1.25 H (test code = 358) GLUCOSE RANDOM 133 mg/dL 70-105 H (BEAKER) (test code = 652) CALCIUM (BEAKER) 9.0 mg/dL 8.4-10.2 (test code = 697) EGFR (BEAKER) (test 30 mL/min/1.73 ESTIMA ANSHU GFR IS code = 1092) sq m NOT ACCURATE CREATININE CLEARANCE IN PREDICTING GLOMERULAR FILTRATION RATE . ESTIMATED GFR I S NOT APPLICABLE FOR DIALYSIS PATIEN TS. Choir Director ID - [id number] 04:59:00 Test Item Value Reference Range Interpretation Comments PTT (test code = 07431-8) 47.6 22.5- 36.0 seconds H Lab Interpretation (test code = Abnormal 08544-2) [facility] 04:59:00 Test Item Value Reference Range Interpretation Comments PARTIAL THROMBOPLASTIN TIME 47.6 seconds 22.5-36.0 H (BEAKER) (test code = 760) Prothrombin time/[id number] 04:58:00 Test Item Value Reference Range Interpretation Comments Protime (test code = 14.5 11.9- 14.2 H 5902-2) seconds INR (test code = 1.2 <=5.9 6301-6) ELADIA (test code = ELADIA) Effective 12/10/2018: PT Reference Range ChangeNew: 11.9-14.2 Previous: 11.7-14.7 RECOMMENDED COUMADIN/WARFARIN INR THERAPY RANGESSTANDARD DOSE: 2.0-3.0 Includes: PROPHYLAXIS for venous thrombosis, systemic embolization; TREATMENT for venous thrombosis and/or pulmonary embolus.HIGH RISK: Target INR is 2.5-3.5 for patients wiht mechanical heart valves. Lab Interpretation Abnormal (test code = 73988-7) [facility]PROTHROMBIN TIME/[id number] 04:58:00 Test Item Value Reference Range Interpretation Comments PROTIME (BEAKER) (test code = 14.5 seconds 11.9-14.2 H 759) INR (BEAKER) (test code = 370) 1.2 <=5.9 Effective 12/10/2018: PT Reference Range ChangeNew: 11.9-14.2 Previous: 11.7- 14.7RECOMMENDED COUMADIN/WARFARIN INR THERAPY RANGESSTANDARD DOSE: 2.0-3.0 Includes: PROPHYLAXIS for venous thrombosis, systemic embolization; TREATMENT for venous thrombosis and/or pulmonary embolus.HIGH RISK: Target INR is2.5-3.5 for patients wiht mechanical heart valves.CBC W/PLT COUNT & AUTO [id number] 04:57:00 Test Item Value Reference Range Interpretation Comments WHITE BLOOD CELL COUNT (BEAKER) 9.8 K/ L 3.5-10.5 (test code = 775) RED BLOOD CELL COUNT (BEAKER) 3.36 M/ L 3.93-5.22 L (test code = 761) HEMOGLOBIN (BEAKER) (test code = 7.6 GM/DL 11.2-15.7 L 410) HEMATOCRIT (BEAKER) (test code = 25.0 % 34.1-44.9 L 411) MEAN CORPUSCULAR VOLUME (BEAKER) 74.4 fL 79.4-94.8 L (test code = 753) MEAN CORPUSCULAR HEMOGLOBIN 22.6 pg 25.6-32.2 L (BEAKER) (test code = 751) MEAN CORPUSCULAR HEMOGLOBIN CONC 30.4 GM/DL 32.2-35.5 L (BEAKER) (test code = 752) RED CELL DISTRIBUTION WIDTH 17.2 % 11.7-14.4 H (BEAKER) (test code = 412) PLATELET COUNT (BEAKER) (test 272 K/CU MM 150-450 code = 756) MEAN PLATELET VOLUME (BEAKER) 11.1 fL 9.4-12.3 (test code = 754) NUCLEATED RED BLOOD CELLS 0 /100 WBC 0-0 (BEAKER) (test code = 413) NEUTROPHILS RELATIVE PERCENT 88 % (BEAKER) (test code = 429) LYMPHOCYTES RELATIVE PERCENT 7 % (BEAKER) (test code = 430) MONOCYTES RELATIVE PERCENT 4 % (BEAKER) (test code = 431) EOSINOPHILS RELATIVE PERCENT 0 % (BEAKER) (test code = 432) BASOPHILS RELATIVE PERCENT 0 % (BEAKER) (test code = 437) NEUTROPHILS ABSOLUTE COUNT 8.63 K/ L 1.56-6.13 H (BEAKER) (test code = 670) LYMPHOCYTES ABSOLUTE COUNT 0.72 K/ L 1.18-3.74 L (BEAKER) (test code = 414) MONOCYTES ABSOLUTE COUNT (BEAKER) 0.34 K/ L 0.24-0.36 (test code = 415) EOSINOPHILS ABSOLUTE COUNT 0.00 K/ L 0.04-0.36 L (BEAKER) (test code = 416) BASOPHILS ABSOLUTE COUNT (BEAKER) 0.00 K/ L 0.01-0.08 L (test code = 417) IMMATURE GRANULOCYTES-RELATIVE 1 % 0-1 PERCENT (BEAKER) (test code = 2801) FL, CHEMIST HELPER IN OR/30 MINUTE [id number] 00:24:46Reason for exam:- >PT HAVING CYSTO/ STENT IN ORFluoroscopic unit utilized for a procedure performed in the OR. No interpretation was requested. Refer to the operative report for findings. Refer to PACS for patient radiation dose information.FL international trade manager in or 30 minute [id number] 00:03:00Interface, External Ris In - 02/22/2020 6:08 PM CDTFluoroscopic unit utilized for a procedure performed in the OR. No interpretation was requested. Refer to the operative report for findings. Referto PACS for patient radiation dose information.[facility] (Asymptomatic ONLY)2020-02-21 21:52:00 Test Item Value Reference Range Interpretation Comments SARS-COV2/RT-PCR Negative Not Detected, (test code = Negative, See 70212-2) external report for linked test SARS-COV-2 [facility] PERFORMING LAB (test code = 97223-5) ELADIA (test code = Negative results do not ELADIA) preclude SARS-CoV-2 infection and should not be used as [...] of the Act. Fact Sheet for Healthcare Providers:https://www.AddonTV/Documents/Xper t%20Xpress%20SARS%20CoV- 2/Fact%20Sheets/302-4892 %41BXXC-YOI-3%20HEALTHCA RE%20PROVIDERS%20FACT%20 SHEET.pdf Fact Sheet for Healthcare Patients:https://www.Ent[employer]ral Systems/Documents/Xpert %20Xpress%20SARS%20CoV-2 /Fact%20Sheets/302-8261% 54WRDQ-DFU-0%20PATIENT%2 0FACT%20SHEET.pdf Performing Laboratory:[facility] [place] [address] [facility]OV[facility]-PCR ([facility])2020-02-21 21:52:00 Test Item Value Reference Range Interpretation Comments SARS-COV2/RT-PCR (test code Negative Not Detected, Negative, = 0034431) See external report for linked test SARS-COV-2 PERFORMING LAB [facility] (test code = 4247793) Negative results do not preclude SARS-CoV-2 infection and should not be used as the sole basis for patient management decisions. Negative results must be combined with clinical observations, patient history, and epidemiological information. A false negative result may occur if a specimen is improperly collected, transported or handled.The limit of detection for this assay is 250 copies/mL.This SARS CoV-2 test is a rapid, real-time RT-PCR test intended for the qualitative detection of nucleic acid from SARS-CoV-2 in a nasopharyngeal swab specimen collected from individuals suspected of COVID-19 by their healthcare provider.This test has not been Food and Drug [...] is revoked under Section 564(g) of the Act.Fact Sheet for Healthcare Pro viders:https://www.Ubitexx.Adomo/Documents/Xpert%20Xpress%20SARS%20CoV-2/Fact%20Sh eets/302-3802%19LDOA-TBL-6%20HEALTHCARE%20PROVIDERS%20FACT%20SHEET.pdfFact Sheet for Healthcare Patients:https://www.[employer] id.[employer]domo/Documents/Xpert%20Xpress%20SARS%20CoV-2/Fact%20Sheets/302-3801%20SARS-COV -2%20PATIENT%20FACT%20SHEET.pdfPerforming Laboratory:[facility], [place] [address]Ianrokzfi Screen, [id number] 21:36:00 Test Item Value Reference Range Interpretation Comments Preg Test, Ur (test code = 2112-1) Negative [facility] HospitalPREGNANCY SCREEN, [id number] 21:36:00 Test Item Value Reference Range Interpretation Comments TEST URINE (BEAKER) (test Negative code = 583) Comprehensive metabolic [id number] 20:08:00 Test Item Value Reference Range Interpretation Comments Protein, Total (test 6.4 6.0- 8.3 gm/dL code = 2885-2) Albumin (test code = 2.6 g/dL 3.5-5 L 37600-1) Alkaline Phosphatase 621 U/L 40-150 H (test code = 6768-6) Total Bilirubin (test 0.6 mg/dL 0.2-1.2 code = 1975-2) Sodium (test code = 133 meq/L 136-145 L 2951-2) Potassium (test code = 4.3 meq/L 3.5-5.1 2823-3) Chloride (test code = 108 meq/L 98-107 H 2075-0) CO2 (test code = 16 meq/L 22-29 L 2028-9) BUN (test code = 42 mg/dL 7-21 H 3094-0) Creatinine (test code 2.48 mg/dL 0.57-1.25 H = 2160-0) Glucose (test code = 133 mg/dL 70-105 H 2345-7) Calcium (test code = 10.0 mg/dL 8.4-10.2 68833-4) AST (test code = 23 U/L 5-34 1920-8) ALT (test code = 29 U/L 6-55 1742-6) EGFR (test code = 26 mL/min/1.73 sq m [place] [address]-2) NOT ACCURATE CREATININE CLEARANCE IN PREDICTING GLOMERULAR FILTRATION RATE . ESTIMATED GFR I S NOT APPLICABLE FOR DIALYSIS PATIENTS. ELADIA (test code = ELADIA) Choir Director ID - AMANDA lA Lab Interpretation Abnormal (test code = 51844-9) [facility] HospitalCOMPRE[facility]ENSIVE METABOLIC [id number] 20:08:00 Test Item Value Reference Range Interpretation Comments TOTAL PROTEIN 6.4 gm/dL 6.0-8.3 (BEAKER) (test code = 770) ALBUMIN (BEAKER) 2.6 g/dL 3.5-5.0 L (test code = 1145) ALKALINE PHOSPHATASE 621 U/L 40-150 H (BEAKER) (test code = 346) BILIRUBIN TOTAL 0.6 mg/dL 0.2-1.2 (BEAKER) (test code = 377) SODIUM (BEAKER) (test 133 meq/L 136-145 L code = 381) POTASSIUM (BEAKER) 4.3 meq/L 3.5-5.1 (test code = 379) CHLORIDE (BEAKER) 108 meq/L 98-107 H (test code = 382) CO2 (BEAKER) (test 16 meq/L 22-29 L code = 355) BLOOD UREA NITROGEN 42 mg/dL 7-21 H (BEAKER) (test code = 354) CREATININE (BEAKER) 2.48 mg/dL 0.57-1.25 H (test code = 358) GLUCOSE RANDOM 133 mg/dL 70-105 H (BEAKER) (test code = 652) CALCIUM (BEAKER) 10.0 mg/dL 8.4-10.2 (test code = 697) AST (SGOT) (BEAKER) 23 U/L 5-34 (test code = 353) ALT (SGPT) (BEAKER) 29 U/L 6-55 (test code = 347) EGFR (BEAKER) (test 26 mL/min/1.73 ESTIMA ANSUH GFR IS code = 1092) sq m NOT ACCURATE CREATININE CLEARANCE IN PREDICTING GLOMERULAR FILTRATION RATE . ESTIMATED GFR I S NOT APPLICABLE FOR DIALYSIS PATIEN TS. Choir Director ID - AMANDA FLactic acid, [id number] 20:01:00 Test Item Value Reference Range Interpretation Comments Lactate, Venous (test code 1.25 mmol/L 0.5-2.2 = 2872) ELADIA (test code = ELADIA) Choir Director ID - AMANDA F Lab Interpretation (test Normal code = 39244-9) [facility] HospitalLACTIC ACID, [id number] 20:01:00 Test Item Value Reference Range Interpretation Comments LACTATE BLOOD VENOUS (2) (BEAKER) 1.25 mmol/L 0.50-2.20 (test code = 2872) Choir Director ID Irma PATEL FPT/[id number] 20:00:00 Test Item Value Reference Range Interpretation Comments Protime (test code = 15.2 11.9- 14.2 H 5902-2) seconds INR (test code = 1.2 <=5.9 6301-6) PTT (test code = 46.7 22.5- 36.0 H 17212-0) seconds ELADIA (test code = ELADIA) Effective 12/10/2018: PT Reference Range ChangeNew: 11.9-14.2 Previous: 11.7-14.7 RECOMMENDED COUMADIN/WARFARIN INR THERAPY RANGESSTANDARD DOSE: 2.0-3.0 Includes: PROPHYLAXIS for venous thrombosis, systemic embolization; TREATMENT for venous thrombosis and/or pulmonary embolus.HIGH RISK: Target INR is 2.5-3.5 for patients wiht mechanical heart valves. Lab Interpretation Abnormal (test code = 10330-7) [facility]PT/[id number] 20:00:00 Test Item Value Reference Range Interpretation Comments PROTIME (BEAKER) (test code = 15.2 seconds 11.9-14.2 H 759) INR (BEAKER) (test code = 370) 1.2 <=5.9 PARTIAL THROMBOPLASTIN TIME 46.7 seconds 22.5-36.0 H (BEAKER) (test code = 760) Effective 12/10/2018: PT Reference Range ChangeNew: 11.9-14.2 Previous: 11.7- 14.7RECOMMENDED COUMADIN/WARFARIN INR THERAPY RANGESSTANDARD DOSE: 2.0-3.0 Includes: PROPHYLAXIS for venous thrombosis, systemic embolization; TREATMENT for venous thrombosis and/or pulmonary embolus.HIGH RISK: Target INR is2.5-3.5 for patients wiht mechanical heart valves.CBC W/PLT COUNT & AUTO [id number] 19:56:00 Test Item Value Reference Range Interpretation Comments WHITE BLOOD CELL COUNT (BEAKER) 12.6 K/ L 3.5-10.5 H (test code = 775) RED BLOOD CELL COUNT (BEAKER) 3.58 M/ L 3.93-5.22 L (test code = 761) HEMOGLOBIN (BEAKER) (test code = 8.2 GM/DL 11.2-15.7 L 410) HEMATOCRIT (BEAKER) (test code = 26.4 % 34.1-44.9 L 411) MEAN CORPUSCULAR VOLUME (BEAKER) 73.7 fL 79.4-94.8 L (test code = 753) MEAN CORPUSCULAR HEMOGLOBIN 22.9 pg 25.6-32.2 L (BEAKER) (test code = 751) MEAN CORPUSCULAR HEMOGLOBIN CONC 31.1 GM/DL 32.2-35.5 L (BEAKER) (test code = 752) RED CELL DISTRIBUTION WIDTH 16.7 % 11.7-14.4 H (BEAKER) (test code = 412) PLATELET COUNT (BEAKER) (test 259 K/CU MM 150-450 code = 756) MEAN PLATELET VOLUME (BEAKER) 11.1 fL 9.4-12.3 (test code = 754) NUCLEATED RED BLOOD CELLS 0 /100 WBC 0-0 (BEAKER) (test code = 413) NEUTROPHILS RELATIVE PERCENT 91 % (BEAKER) (test code = 429) LYMPHOCYTES RELATIVE PERCENT 5 % (BEAKER) (test code = 430) MONOCYTES RELATIVE PERCENT 3 % (BEAKER) (test code = 431) EOSINOPHILS RELATIVE PERCENT 0 % (BEAKER) (test code = 432) BASOPHILS RELATIVE PERCENT 0 % (BEAKER) (test code = 437) NEUTROPHILS ABSOLUTE COUNT 11.41 K/ L 1.56-6.13 H (BEAKER) (test code = 670) LYMPHOCYTES ABSOLUTE COUNT 0.66 K/ L 1.18-3.74 L (BEAKER) (test code = 414) MONOCYTES ABSOLUTE COUNT (BEAKER) 0.34 K/ L 0.24-0.36 (test code = 415) EOSINOPHILS ABSOLUTE COUNT 0.00 K/ L 0.04-0.36 L (BEAKER) (test code = 416) BASOPHILS ABSOLUTE COUNT (BEAKER) 0.01 K/ L 0.01-0.08 (test code = 417) IMMATURE GRANULOCYTES-RELATIVE 1 % 0-1 PERCENT (BEAKER) (test code = 2801) Urinalysis w/Microscopic + Reflex to [id number] 19:44:00 Test Item Value Reference Range Interpretation Comments Color, UA (test code = Yellow 5778-6) Clarity, UA (test code = Hazy 5767-9) Specific [place], UA (test 1.009 1.001-1.035 code = 5811-5) pH, UA (test code = 6.0 5.0-8.0 5803-2) Protein, UA (test code = 50 mg/dL Negative A 61793-5) Glucose, UA (test code = Negative Negative 365) Ketones, UA (test code = Negative Negative 2514-8) Bilirubin, UA (test code = Negative Negative 65202-7) Blood, UA (test code = Large Negative A 54940-5) Nitrite, UA (test code = Negative Negative 5802-4) Leukocytes, UA (test code Large Negative A = 5799-2) Urobilinogen, UA (test 0.2 mg/dL 0.2-1 code = 46696-5) RBC, UA (test code = 17 /HPF 61682-3) WBC, UA (test code = 261 /HPF 5821-4) Mucus (test code = 8247-9) Rare Squam Epithel, UA (test <1 /HPF code = 80533-1) Granular Casts, UA (test 1 /LPF code = 5793-5) Yeast (test code = Few 53004-8) Specimen Source (test code = 2795) ELADIA (test code = ELADIA) Choir Director ID - [auto]Choir Director ID - tech Lab Interpretation (test Abnormal code = 69475-5) [facility]FLEX URINE [id number] 19:44:00 Test Item Value Reference Range Interpretation Comments COLOR (BEAKER) (test code = 470) Yellow CLARITY (BEAKER) (test code = 469) Hazy SPECIFIC GRAVITY UA (BEAKER) (test 1.009 1.001-1.035 code = 468) PH UA (BEAKER) (test code = 467) 6.0 5.0-8.0 PROTEIN UA (BEAKER) (test code = 50 mg/dL Negative A 464) GLUCOSE UA (BEAKER) (test code = Negative Negative 365) KETONES UA (BEAKER) (test code = Negative Negative 371) BILIRUBIN UA (BEAKER) (test code = Negative Negative 462) BLOOD UA (BEAKER) (test code = 461) Large Negative A NITRITE UA (BEAKER) (test code = Negative Negative 465) LEUKOCYTE ESTERASE UA (BEAKER) Large Negative A (test code = 466) UROBILINOGEN UA (BEAKER) (test code 0.2 mg/dL 0.2-1.0 = 463) RBC UA (BEAKER) (test code = 519) 17 /HPF WBC UA (BEAKER) (test code = 520) 261 /HPF MUCUS (BEAKER) (test code = 1574) Rare SQUAMOUS EPITHELIAL (BEAKER) (test < /HPF code = 516) GRANULAR CASTS (BEAKER) (test code 1 /LPF = 515) YEAST (BEAKER) (test code = 1585) Few SOURCE(BEAKER) (test code = 2795) Choir Director ID - [auto]Choir Director ID - techPOORNIMAT 2 VIEW*GP*2019-05-07 12:30:41Exam: Chest x-ray 2 viewsHISTORY: SarcoidosisLocation: [id number]:The heart size is normal with diffuse interstitial prominence particularly inthe perihilar regions and lung bases likely representing changes ofsarcoidosis. No significant mediastinal or hilar lymphadenopathy. Possiblesmall 9.6 mm nodular density in the right lower lobe versus infiltrativeconsolidation. Superimposed pneumonia in the right lower lobe cannot beexcluded. No prior exams available for comparison. Osseous structures areintact.Impression:1. Diffuse interstitial prominence with likely superimposed pneumonia in theright lowerlobe and nodular consolidation versus pulmonary nodule. Ifresolution does not occur. CT recommended.
[2020-03-01 11:49] LABS: Absolute Lymphocytes (CBC) 0.5 K/uL (0.7-4.9); Basophils % 0.2 % (0-1.3); Hematocrit 24.4 % (36.0-45.0); Lymphocytes % 9.5 % (15.3-44.8); MPV 7.5 fL (7.6-11.3)
[2020-03-01] MEDS ORDERED: ACETAMINOPHEN 325 MG TABLET ONE (11:55)
[2020-03-01] MEDS ORDERED: METHYLPREDNISOLONE 125 MG INJ ONE (11:55)
[2020-03-01 12:10] LABS: Potassium 4.1 mmol/L (3.5-5.1)
[2020-03-01 12:25] LABS: Urine Blood 3+ (NEG); Urine Glucose NEGATIVE (NEG); Urine Protein 2+ (NEG)
[2020-03-01 12:25] LABS: Urine Bacteria <20 /HPF (<20); Urine Culture Reflex Order REFLEXED; Urine RBC >50 /HPF (NONE SEEN)
--- NOTE | 2020-03-01 13:11 | EDPHYS ---
Physician Documentation [facility] Name: Rosa M Magallanes Age: 39 yrs Sex: Female : 1980 Arrival Date: 03/01/2020 Time: 11:05 Bed 20 Private MD: ED Physician Chris Bansal HPI: 03/01 13:01 This 39 yrs old Black Female presents to ER via Ambulatory with complaints of Allergic rn Reaction, swelling. 13:01 The patient presents with diffuse swelling. Onset: The symptoms/episode began/occurred rn yesterday. Possible causes: The patient has no known obvious cause for the symptoms. At home the patient or guardian has treated the symptoms with Benadryl. Severity of symptoms: At their worst the symptoms were mild in the emergency department the symptoms are unchanged. The patient has not experienced similar symptoms in the past. Reports recently admitted to and discharged from [facility] for kidney stone with UTI, obstruction. Received stent and sent home on abx. Reports has had this abx before without reaction. Called urologist yesterday, told might have allergic reaction and to go to ER, took benadryl, didn't improve, came in today. No itching or sob. Reports legs and hands feel swollen. No rash or itching. . 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 - Social history:: Smoking status: Patient reports the use of cigarette tobacco products, denies chronic smoking, but will smoke occasionally. - Family history:: not pertinent. - Hospitalizations: : No recent hospitalization is reported. ROS: 13:01 Constitutional: Negative for fever, chills, and weight loss, Eyes: Negative for injury, rn pain, redness, and discharge, Cardiovascular: Negative for chest pain, palpitations Respiratory: Negative for shortness of breath, cough, wheezing, and pleuritic chest pain, Abdomen/GI: Negative for abdominal pain, nausea, vomiting, diarrhea, and constipation, MS/Extremity: Negative for injury and deformity, Skin: Negative for injury, rash, and discoloration, Neuro: Negative for headache, weakness, numbness, tingling, and seizure. Exam: 13:01 Constitutional: This is a well developed, well nourished patient who is awake, alert, rn and in no acute distress. Head/Face: Normocephalic, atraumatic. ENT: No oral swelling or stridor Cardiovascular: Regular rate and rhythm. No pulse deficits. Respiratory: Speaking full sentences. No increased work of breathing, no retractions or nasal flaring. Abdomen/GI: Soft, non-tender Skin: Warm, dry, no rash, no cellulitis MS/ Extremity: Pulses equal, no cyanosis. Vital Signs: 11:21 BP 150 / 109; Pulse 114; Resp 17 S; Temp 97(TE); Pulse Ox 100% on R/A; ca1 12:30 BP 124 / 93; Pulse 90; Resp 16; Pulse Ox 100% ; rb1 MDM: 11:15 Patient medically screened. rn 13:08 Differential diagnosis: edema, medication reaction, allergic reaction, kidney failure, rn fluid administration from hospitalization. Data reviewed: vital signs, nurses notes, lab test result(s), and as a result, I will discharge patient. Counseling: I had a detailed discussion with the patient and/or guardian regarding: the historical points, exam findings, and any diagnostic results supporting the discharge/admit diagnosis, lab results, the need for outpatient follow up, to return to the emergency department if symptoms worsen or persist or if there are any questions or concerns that arise at home. Special discussion: I discussed with the patient/guardian in detail that at this point there is no indication for admission to the hospital. It is understood, however, that if the symptoms persist or worsen the patient needs to return immediately for re-evaluation. ED course: Swelling not improved with steroids, + improvement of renal function, + drop in hemoglobin, swelling could be from over administration of fluids in hospitalization given patient states started on last day of admission, in conjunction with renal injury and chronic steroid use patient takes for other medical problems. Needs to continues second abx given by urology. . 03/01 11:24 Order name: CBC with Diff rn 03/01 11:24 Order name: Basic Metabolic Panel rn 03/01 11:24 Order name: Urine Microscopic Only rn 03/01 11:24 Order name: BNP rn 03/01 11:25 Order name: CBC with Automated Diff; Complete Time: 12:21 EDMS 03/01 11:25 Order name: Basic Metabolic Panel; Complete Time: 13:00 EDMS 03/01 11:24 Order name: IV Start; Complete Time: 12:05 rn 03/01 11:25 Order name: Urine Microscopic Only; Complete Time: 13:00 EDMS 03/01 11:25 Order name: NT PRO-BNP; Complete Time: 13:00 EDMD 03/01 12:06 Order name: Urine Dipstick--Ancillary (enter results); Complete Time: 13:00 bd 03/01 12:06 Order name: Urine --Ancillary (enter results); Complete Time: 13:00 bd 03/01 12:27 Order name: Urine Culture EDMD 03/01 11:24 Order name: Urine Dipstick-Ancillary (obtain specimen); Complete Time: 12:05 rn Administered Medications: 11:44 Drug: SOLU-Medrol 125 mg Route: IVP; Site: right antecubital; rb1 12:00 Follow up: Response: No adverse reaction rb1 11:44 Drug: Tylenol 650 mg Route: PO; rb1 12:30 Follow up: Response: No adverse reaction; Pain is decreased rb1 Disposition: 03/01/20 13:10 Discharged to Home. Impression: Edema, unspecified. - Condition is Stable. - Discharge Instructions: Anemia, Nonspecific, Edema. - Medication Reconciliation Form, Thank You Letter, Antibiotic Education, Prescription Opioid Use form. - Follow up: Private Physician; When: As needed; Reason: Recheck today's complaints, Re-evaluation by your physician. - Problem is new. - Symptoms are unchanged. Signatures: Dispatcher [employer] EDMD Chris Bansal MD MD rn Barber, Rebecca RN RN rb1 Corrections: (The following items were deleted from the chart) 12:37 11:15 PSHx: Stents place in abdomen; rb1 rb1 13:43 13:10 03/01/2020 13:10 Discharged to Home. Impression: Edema, unspecified. Condition is rb1 Stable. Forms are Medication Reconciliation Form, Thank You Letter, Antibiotic Education, Prescription Opioid Use. Follow up: Private Physician; When: As needed; Reason: Recheck today's complaints, Re-evaluation by your physician. Problem is new. Symptoms are unchanged. rn
--- NOTE | 2020-03-01 13:11 | ER ---
Nurse's Notes [facility] Name: Rosa M Magallanes Age: 39 yrs Sex: Female : 1980 Arrival Date: 03/01/2020 Time: 11:05 Bed 20 Private MD: Diagnosis: Edema, unspecified Presentation: 03/01 11:15 Anaphylaxis evaluation, no signs or symptoms of anaphylaxis were noted. rb1 11:15 Onset: The symptoms/episode began/occurred Last Saturday. Initial Sepsis Screen: Does the rb1 patient meet any 2 criteria? Yes. 11:15 Coronavirus screen: At this time, the client does not indicate any symptoms associated rb1 with coronavirus-19. Ebola Screen: Patient denies travel to an Ebola-affected area in the 21 days before illness onset. Initial Sepsis Screen: Does the patient have a suspected source of infection? No. Patient's initial sepsis screen is negative. 11:21 Chief complaint: Patient states: Pt was in the Hospital in [place] for kidney stones, ca1 gall stones and infection in the abdomen. Was discharged and started on Amoxicillin. Noticed swelling on legs and hands on Saturday morning. Neck and throat just feels tight. Denies rash, hives, itching, difficulty breathing. Risk Assessment: Do you want to hurt yourself or someone else? Patient reports no desire to harm self or others. Onset of symptoms was March 01, 2020. 11:21 Method Of Arrival: Ambulatory ca1 11:21 Acuity: EUGENIA 3 ca1 Triage Assessment: 11:15 General: Appears in no apparent distress. Behavior is calm, cooperative. Pain: rb1 Complains of pain in anterior aspect of right lateral abdomen. Neuro: Level of Consciousness is awake, alert, obeys commands, Oriented to person, place, time, situation. Neuro: Reports Tingling in her hands. Cardiovascular: Capillary refill < 3 seconds. Respiratory: Airway is patent Respiratory effort is even, unlabored, Respiratory pattern is regular, symmetrical. GI: No signs and/or symptoms were reported involving the gastrointestinal system. : No signs and/or symptoms were reported regarding the genitourinary system. Derm: Skin is dry, Skin is normal, Skin temperature is warm. Musculoskeletal: Swelling present in right hand, left hand, right foot and left foot. 11:15 General: Was recently discharged from [facility] last after having stents rb1 replaced. Pt. noticed the swelling in her hands and feet on Saturday.. 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 - Social history:: Smoking status: Patient reports the use of cigarette tobacco products, denies chronic smoking, but will smoke occasionally. - Family history:: not pertinent. - Hospitalizations: : No recent hospitalization is reported. Screenin:15 Abuse screen: Denies threats or abuse. Nutritional screening: No deficits noted. rb1 Tuberculosis screening: No symptoms or risk factors identified. Fall Risk None identified. Assessment: 11:15 General: See triage note. rb1 12:15 Reassessment: Patient appears in no apparent distress at this time. Patient and/or rb1 family updated on plan of care and expected duration. Pain level reassessed. Patient is alert, oriented x 3, equal unlabored respirations, skin warm/dry/pink. Vital Signs: 11:21 BP 150 / 109; Pulse 114; Resp 17 S; Temp 97(TE); Pulse Ox 100% on R/A; ca1 12:30 BP 124 / 93; Pulse 90; Resp 16; Pulse Ox 100% ; rb1 ED Course: 11:05 Patient arrived in ED. as 11:15 Chris Bansal MD is Attending Physician. rn 11:15 Patient has correct armband on for positive identification. Bed in low position. Call rb1 light in reach. Side rails up X 1. Pulse ox on. NIBP on. 11:21 Arm band placed on right wrist. ca1 11:23 Triage completed. ca1 11:23 Nenita Díaz, RN is Primary Nurse. rb1 11:40 Inserted saline lock: 22 gauge in right antecubital area, using aseptic technique. rb1 Blood collected. 13:42 No provider procedures requiring assistance completed. rb1 13:42 IV discontinued, intact, bleeding controlled, No redness/swelling at site. Pressure rb1 dressing applied. Administered Medications: 11:44 Drug: SOLU-Medrol 125 mg Route: IVP; Site: right antecubital; rb1 12:00 Follow up: Response: No adverse reaction rb1 11:44 Drug: Tylenol 650 mg Route: PO; rb1 12:30 Follow up: Response: No adverse reaction; Pain is decreased rb1 Outcome: 13:10 Discharge ordered by MD. rn 13:42 Discharged to home ambulatory. rb1 13:42 Condition: stable 13:42 Discharge instructions given to patient, Instructed on discharge instructions, follow up and referral plans. Demonstrated understanding of instructions, follow-up care, Prescriptions given X none 13:43 Patient left the ED. rb1 Signatures: Teressa Jones Roman, MD MD rn Barber, Rebecca, RN RN rb1 Chelsey Laurent RN RN ca1 Corrections: (The following items were deleted from the chart) 12:37 11:15 PSHx: Stents place in abdomen; rb1 rb1
[2020-03-01 13:47] VITALS: TEMP 97; O2SAT 100
[2020-03-01 13:49] VITALS: BP 124/93
== END 2020-03-01 13:43 | disposition home or self-care (01) ==
LOC: ER 11:04
DX: R60.9 Edema, unspecified (principal); I10 Essential (primary) hypertension; F17.210 Nicotine dependence, cigarettes, uncomplicated; Z88.8 Allergy status to other drugs, medicaments and biological substances; Z87.442 Personal history of urinary calculi
CPT/HCPCS: 36415; 80048; 81003; 81015; 81025; 83880; 85025; 87086; 87088; 96374; 99284; J2930

== ENCOUNTER 2020-04-22 08:34 | Emergency (ER) | payer SELFPAY ==
--- NOTE | 2020-04-22 09:32 | ER ---
Nurse's Notes [facility] Name: Rosa M Magallanes Age: 39 yrs Sex: Female : 1980 Arrival Date: 04/22/2020 Time: 08:38 Bed 18 Private MD: Verito Villegas Diagnosis: Urinary tract infection, site not specified Presentation: 04/22 09:13 Chief complaint: Patient states: suprapubic and low back discomfort with burning with ss urination that began days ago. Pt reports a hx of kidney stones. Coronavirus screen: Client denies travel out of the [place] in the last 14 days. Ebola Screen: Patient denies exposure to infectious person. Patient denies travel to an Ebola-affected area in the 21 days before illness onset. Initial Sepsis Screen: Does the patient meet any 2 criteria? No. Patient's initial sepsis screen is negative. Does the patient have a suspected source of infection? Yes: Dysuria/Frequency/Urgency/UTI. Risk Assessment: Do you want to hurt yourself or someone else? Patient reports no desire to harm self or others. Onset of symptoms was April 19, 2020. 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 - Social history:: Smoking status: Patient reports the use of cigarette tobacco products, denies chronic smoking, but will smoke occasionally. Screenin:25 Abuse screen: Denies threats or abuse. Denies injuries from another. Nutritional ph screening: No deficits noted. Tuberculosis screening: No symptoms or risk factors identified. Fall Risk None identified. Assessment: 09:55 General: Appears in no apparent distress. uncomfortable, well groomed, Behavior is ph calm, cooperative, appropriate for age, Denies fever. Pain: Complains of pain in suprapubic area. Neuro: Level of Consciousness is awake, alert, obeys commands, Oriented to person, place, time, situation. Cardiovascular: Capillary refill < 3 seconds in bilateral fingers Patient's skin is warm and dry. GI: Abdomen is round non-distended, Reports lower abdominal pain, Patient currently denies diarrhea, nausea, vomiting. : Reports burning with urination, pain in suprapubic area urinary frequency. Musculoskeletal: Circulation, motion, and sensation intact. Range of motion: intact in all extremities. 10:05 Reassessment: D/C pending 15 min shot time. ph Vital Signs: 09:13 BP 119 / 88; Pulse 88; Resp 16; Temp 97.0(TE); Pulse Ox 97% on R/A; Weight 77.11 kg; ss Height 5 ft. 4 in. (162.56 cm); Pain 7/10; 10:25 BP 117 / 86; Pulse 78; Resp 18; Temp 98.0; Pulse Ox 99% on R/A; ph 09:13 Body Mass Index 29.18 (77.11 kg, 162.56 cm) ED Course: 08:38 Patient arrived in ED. mr 08:38 Verito Villegas is Private Physician. mr 09:15 Triage completed. ss 09:16 Arm band placed on left wrist. ss 09:20 Yahir Lira PA is PHCP. jm 09:20 Willam Starks MD is Attending Physician. jmm 09:27 Ting Anna, ARY is Primary Nurse. ph 09:30 Patient has correct armband on for positive identification. Bed in low position. Call ph light in reach. Side rails up X 1. Pulse ox on. NIBP on. Door closed. Noise minimized. 10:25 No provider procedures requiring assistance completed. Patient did not have IV access ph during this emergency room visit. Administered Medications: 10:02 Drug: Rocephin (cefTRIAXone) 1 grams Route: IM; Site: right gluteus; ph 10:22 Follow up: Response: No adverse reaction ph 10:20 Drug: Tylenol #3 (300 mg-30 mg) 1 tablet Route: PO; ph 10:23 Follow up: Response: No adverse reaction ph Outcome: 09:31 Discharge ordered by . jmm 10:26 Discharged to home ambulatory, with significant other. ph 10:26 Condition: good 10:26 Discharge instructions given to patient, Instructed on discharge instructions, follow up and referral plans. medication usage, Demonstrated understanding of instructions, follow-up care, medications, Prescriptions given X 1. 10:26 Patient left the ED. ph Signatures: Yahir Lira PA PA [facility] mr Marisel Capone, ARY RN ss Ting Anna RN RN ph
--- NOTE | 2020-04-22 09:32 | EDPHYS ---
Physician Documentation [facility] Name: Rosa M Magallanes Age: 39 yrs Sex: Female : 1980 Arrival Date: 04/22/2020 Time: 08:38 Bed 18 Private MD: Verito Villegas ED Physician Willam Starks HPI: 04/22 09:28 This 39 yrs old Black Female presents to ER via Ambulatory with complaints of Abdominal jmm Pain, Back Pain, Urinary Problem. 09:28 The patient presents with abdominal pain. Onset: The symptoms/episode began/occurred jmm gradually, 2 day(s) ago. The symptoms do not radiate. Associated signs and symptoms: Pertinent positives: dysuria, Pertinent negatives: vomiting. The symptoms are described as achy. This is a 39 year old female with a history of kidney stones, recently received a ureteral stent 2 weeks prior. Patient states she developed dysuria and lower back pain 2 days ago. Denies vomiting, fever. . 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 - Social history:: Smoking status: Patient reports the use of cigarette tobacco products, denies chronic smoking, but will smoke occasionally. ROS: 09:28 Constitutional: Negative for fever, chills, and weight loss, Cardiovascular: Negative jmm for chest pain, palpitations, and edema, Respiratory: Negative for shortness of breath, cough, wheezing, and pleuritic chest pain. 09:28 Abdomen/GI: Positive for abdominal pain. 09:28 Back: Positive for radiated pain. 09:28 : Positive for urinary symptoms. 09:28 All other systems are negative. Exam: 09:28 Constitutional: This is a well developed, well nourished patient who is awake, alert, jmm and in no acute distress. Head/Face: atraumatic. Eyes: EOMI, no conjunctival erythema appreciated ENT: Moist Mucus Membranes Neck: Trachea midline, Supple Chest/axilla: Normal chest wall appearance and motion. Cardiovascular: Regular rate and rhythm. No edema appreciated Respiratory: Normal respirations, no respiratory distress appreciated 09:28 Skin: General appearance color normal MS/ Extremity: Moves all extremities, no obvious deformities appreciated, no edema noted to the lower extremities Neuro: Awake and alert, normal gait Psych: Behavior is normal, Mood is normal, Patient is cooperative and pleasant 09:28 Abdomen/GI: Inspection: abdomen appears normal, Bowel sounds: normal, Palpation: soft, mild abdominal tenderness, in the suprapubic area. 09:28 Back: CVA tenderness, is absent, is noted bilaterally. Vital Signs: 09:13 BP 119 / 88; Pulse 88; Resp 16; Temp 97.0(TE); Pulse Ox 97% on R/A; Weight 77.11 kg; ss Height 5 ft. 4 in. (162.56 cm); Pain 7/10; 10:25 BP 117 / 86; Pulse 78; Resp 18; Temp 98.0; Pulse Ox 99% on R/A; ph 09:13 Body Mass Index 29.18 (77.11 kg, 162.56 cm) ss MDM: 09:25 Patient medically screened. [facility] 09:30 Data reviewed: vital signs, nurses notes. Counseling: I had a detailed discussion with deepa the patient and/or guardian regarding: the historical points, exam findings, and any diagnostic results supporting the discharge/admit diagnosis, lab results, the need for outpatient follow up, to return to the emergency department if symptoms worsen or persist or if there are any questions or concerns that arise at home. ED course: Patient is alert and non toxic in the ED. UA concerning for UTI. Will treat with abx. Patient advised to follow up with urology for further evaluation and otherwise given strict return precautions. Patient understood and agrees with the plan of care. . 04/22 09:26 Order name: Urine Culture [facility] 04/22 09:27 Order name: Urine Culture [facility] 04/22 09:32 Order name: Urine Dipstick--Ancillary (enter results); Complete Time: 10:52 eb 04/22 09:32 Order name: Urine --Ancillary (enter results); Complete Time: 10:52 04/22 09:23 Order name: Urine Dipstick-Ancillary (obtain specimen); Complete Time: 09:26 [facility] 04/22 09:23 Order name: Urine Test (obtain specimen); Complete Time: 09: [facility] Administered Medications: 10:02 Drug: Rocephin (cefTRIAXone) 1 grams Route: IM; Site: right gluteus; ph 10:22 Follow up: Response: No adverse reaction ph 10:20 Drug: Tylenol #3 (300 mg-30 mg) 1 tablet Route: PO; ph 10:23 Follow up: Response: No adverse reaction ph Disposition: 04/22/20 09:31 Discharged to Home. Impression: Urinary tract infection, site not specified. - Condition is Stable. - Discharge Instructions: Urinary Tract Infection, Adult. - Prescriptions for cefpodoxime 200 mg Oral Tablet - take 1 tablet by ORAL route every 12 hours with food; 20 tablet. - Medication Reconciliation Form, Thank You Letter, Antibiotic Education, Prescription Opioid Use form. - Follow up: Private Physician; When: 2 - 3 days; Reason: Recheck today's complaints, Continuance of care, Re-evaluation by your physician. Addendum: 04/23/2020 17:52 Co-signature as Attending Physician, Willam Starks MD I agree with the assessment and c lemus plan of care. Signatures: Dispatcher [employer] EDMS Willam Starks MD MD cha Mickail, Joel, PA PA Marisel Wong, ARY RN ss Ting Anna RN RN ph Corrections: (The following items were deleted from the chart) 04/22 10:26 09:31 04/22/2020 09:31 Discharged to Home. Impression: Urinary tract infection, site ph not specified. Condition is Stable. Forms are Medication Reconciliation Form, Thank You Letter, Antibiotic Education, Prescription Opioid Use. Follow up: Private Physician; When: 2 - 3 days; Reason: Recheck today's complaints, Continuance of care, Re-evaluation by your physician. deepa
--- OUTSIDE RECORDS SUMMARY | 2020-04-22 09:32 | XMS REPORT | Clinical Summary ---
:1980 Author Organization [facility] Address [address] [place] [address] Care Team Providers Name Role Phone Unavailable Primary Care Provider Unavailable Allergies Active Allergy Reactions Severity Noted Date Comments Iodine And Iodide Containing Hives 02/21/2020 Products Penicillins 02/29/2020 Augmentin--"swe lling of arms, feet and lips" Shellfish Containing Products Hives 02/21/2020 Medications Medication Sig Dispensed Refills Start Date End Date Status predniSONE Take 1 tablet 90 tablet 0 02/26/2020 Acti ve (DELTASONE) 10 MG (10 mg total) 0 tablet by mouth daily for 90 days. tamsulosin (FLOMAX) Take 1 30 capsule 0 02/26/2020 Active 0.4 mg Cap 24 hr capsule (0.4 capsule mg total) by mouth daily. acetaminophen Take 1,000 mg 0 Ac tive (TYLENOL) 500 MG by mouth tabletIndications: every 6 (six) pain hours as needed for Pain. ferrous sulfate 325 Take 325 mg 0 Active (65 FE) MG by mouth tabletIndications: daily with anemia from breakfast. inadequate iron lactobacillus Take 1 0 Active rhamnosus, GG, capsule by (CULTURELLE) 10 mouth daily. billion cell capsule multivitamin per Take 1 tablet 0 Active tablet by mouth daily. pantoprazole Take 1 tablet 60 tablet 0 02/25/2020 Ex pired (PROTONIX) 40 MG (40 mg total) 0 tablet by mouth 2 (two) times daily for 30 days. phenazopyridine Take 1 tablet 10 tablet 0 02/25/2020 (PYRIDIUM) 95 MG (95 mg total) 0 tablet by mouth 3 (three) times daily with meals for 3 days. amoxicillin-clavulana Take 1 tablet 28 tablet 0 02/25/2020 Discontinued te (AUGMENTIN) by mouth 2 0 875-125 mg per tablet (two) times daily for 14 days. metroNIDAZOLE Take 500 mg 0 02/29/2020 Dis continued (FLAGYL) 500 MG by mouth 3 0 tablet (three) times daily FOR 10 DAYS. ciprofloxacin HCl Take 1 tablet 14 tablet 0 03/22/2020 02 (CIPRO) 500 MG tablet (500 mg 0 total) by mouth every 12 (twelve) hours for 7 days. fluconazole Take 1 tablet 7 tablet 0 03/23/2020 Exp ired (DIFLUCAN) 200 MG (200 mg 0 tablet total) by mouth daily for 7 days. HYDROcodone-acetamino Take 1 tablet 30 tablet 0 03/22/2020 Discontinued phen (NORCO 5-325) by mouth 0 5-325 mg per tablet every 6 (six) hours as needed for up to 10 days. Max Daily Amount: 4 tablets HYDROcodone-acetamino Take 1 tablet 30 tablet 0 03/22/2020 phen (NORCO 5-325) by mouth 0 5-325 mg per every 6 (six) tabletIndications: hours as pain, recent surgery needed for Pain for up to 10 days. Max Daily Amount: 4 tablets Active Problems Problem Noted Date Fever, unspecified fever cause 03/11/2020 UTI (urinary tract infection) 03/10/2020 Obstructive uropathy 02/21/2020 Sepsis secondary to UTI 02/21/2020 MARIA GUADALUPE (acute kidney injury) 02/21/2020 Sarcoidosis 02/21/2020 Ureteral stone with hydronephrosis 02/21/2020 Stones in the urinary tract 02/21/2020 Overview: Added automatically from request for ari bryant [id number] Encounters Date Type Specialty Care Team Description 04/07/2020 Orders Only Urology Freddie Hurst Abdominal Collin ledesma MD unspecified abdominal locat ion 03/20/2020 Anesthesia Event Stevenson Finley MD 03/20/2020 Surgery Freddie Hurst CYSTOSCOPY,UR HARJINDER Polanco MD COPY 03/11/2020 Travel 03/10/2020 - Hospital Encounter General Internal Sunny Del Castillo Fever , unspecified fever cause (Primary Dx); 03/22/2020 Medicine MD Kushal MARIA GUADALUPE (acute kidney injury) ([facility]); Yazmin Escamilla Sarcoidosis; MD Cheryle Acute cystitis with hematuria; Lonnie Plaza MD Hypercalcemia; Gmoez Mccarty, Iron deficie ncy anemia, unspecified iron deficiency anemia type; Urinary tract i nfection with hematuria, site unspecified; Calculus of kid manjit with calculus of ureter; Obstructive uro paul 03/10/2020 Travel 02/21/2020 Anesthesia Event Allan Michel MD 02/21/2020 Surgery Freddie Hurst CYSTOSCOPY,IN SERTIO MD Collin N URETERAL STEN TS 02/21/2020 - Hospital Encounter General Internal Juan Jose Mahoney Obs tructive uropathy; 02/25/2020 Medicine MD Margareth Sepsis secondary to UTI ([facility]); Arnulfo Iraheta MD MARIA GUADALUPE (acute kidney injury) ([facility]); Fernanda Torres Stones in th e urinary tract; MD Juancarlos Right ureteral stone; Freddie Hurst Sepsis due to urinary tract infection ([facility]); MD Collin Bilateral renal stones after 04/22/2019 Social History Tobacco Use Types Packs/Day Years Used Date Former Smoker Smokeless Tobacco: Never Used Alcohol Use Drinks/Week oz/Week Comments No Alcohol Habits Answer Date Recorded How often do you have a drink containing alcohol? Never 03/11/2020 How many drinks containing alcohol do you have on a typical Not asked day when you are drinking? How often do you have six or more drinks on one occasion? No t asked Sex Assigned at Date Recorded Not on file Job Start Date Occupation Industry Not on file Not on file Not on file Travel History Travel Start Travel End No recent travel history available. Last Filed Vital Signs Vital Sign Reading Time Taken Blood Pressure 114/77 03/22/2020 7:36 AM CDT Pulse 83 03/22/2020 7:36 AM CDT Temperature 36.9 C (98.4 F) 03/22/2020 7:36 AM CDT Respiratory Rate 19 03/22/2020 7:36 AM CDT Oxygen Saturation 100% 03/22/2020 7:36 AM CDT Inhaled Oxygen Concentration 21% 02/24/2020 9:15 PM CDT Weight 78 kg (172 lb) 03/10/2020 5:06 PM CDT Height 162.6 cm (5' 4") 03/10/2020 5:06 PM CDT Body Mass Index 29.52 03/10/2020 5:06 PM CDT Plan of Treatment Health Maintenance Due Date Last Done Comments CERVICAL CANCER SCREENING PAP ONLY (Age 21-65) 2002 INFLUENZA VACCINE (#1) 2020 Implants Implanted Type Area Explosives Truck Driver Device Identifier Shelf Model / Expiration Serial / Date Lot Set Stent Injection 6x24cm [id number] - [id number] IMPLANTS Lef t: BOSTON [id number] 05/26/2021 [id number] / Implanted: Qty: 1 on 02/21/2020 by Freddie Hurst MD Ureter [employer]:ONCOLOGY / [id number] Set Stent Injection 6x26cm [id number] - [id number] IMPLANTS Rig ht: [employer]ON [id number] 08/03/2021 [id number] / Implanted: Qty: 1 on 02/21/2020 by Freddie Hurst MD [employer] / [id number] Set Stent Injection 6x26cm [id number] - [id number] IMPLANTS Right: [employer]ON 05/25/2021 [id number] / Implanted: Qty: 1 on 03/20/2020 by Freddie Hurst MD Ureter [employer] / [id number] Set Stent Injection 6x24cm [id number] - [id number] IMPLANTS Lef t: [employer]ON [id number] 09/02/2021 [id number] / Implanted: Qty: 1 on 03/20/2020 by Freddie Hurst MD Ureter [employer] / [id number] Procedures Procedure Name Priority Date/Time Associated Diagnosis Comme nts BASIC METABOLIC PANEL Routine 03/22/2020 5:48 Re sults for this (7) AM CDT procedure are i n the results section. CBC W/PLT COUNT & Routine 03/22/2020 3:53 Result s for this AUTO DIFFERENTIAL AM CDT procedure are in the results section. CBC W/PLT COUNT & Routine 03/22/2020 3:53 Result s for this AUTO DIFFERENTIAL AM CDT procedure are in the results section. SARS-COV2/RT-PCR SEDRICK 03/21/2020 6:31 Results for this ([facility] & REF LABS) PM CDT procedure are in the results section. CBC W/PLT COUNT & Routine 03/21/2020 4:22 Result s for this AUTO DIFFERENTIAL AM CDT procedure are in the results section. BASIC METABOLIC PANEL Routine 03/21/2020 4:22 Re sults for this (7) AM CDT procedure are i n the results section. CBC W/PLT COUNT & Routine 03/21/2020 4:22 Result s for this AUTO DIFFERENTIAL AM CDT procedure are in the results section. FL FLUORO STAT 03/20/2020 2:37 Results for this NON-SPECIFIC UP TO 1 PM CDT procedu re are in HOUR the results section. STONE ANALYSIS Routine 03/20/2020 2:04 Results f or this PM CDT procedure are i n the results section. CYSTOSCOPY,URETEROSCO 03/20/2020 8:00 Nephrolithiasis PY AM CDT Special Needs REQ: 0800 CBC W/PLT COUNT & AUTO Routine 03/20/2020 4:48 AM Results for this DIFFERENTIAL CDT procedure are i n the results section. BASIC METABOLIC PANEL Routine 03/20/2020 4:48 AM Results for this (7) CDT procedure are i n the results section. CBC W/PLT COUNT & AUTO Routine 03/20/2020 4:48 AM Results for this DIFFERENTIAL CDT procedure are i n the results section. HCG, QUANTITATIVE, Routine 03/19/2020 12:58 AM Re sults for this CDT procedure are i n the results section. SARS-COV2/RT-PCR ([facility] STAT 03/18/2020 10:05 PM Results for this & REF LABS) CDT procedure are i n the results section. SCREEN, URINE Routine 03/17/2020 5:32 AM Results for this CDT procedure are i n the results section. CBC W/PLT COUNT & AUTO Routine 03/17/2020 3:36 AM Results for this DIFFERENTIAL CDT procedure are i n the results section. BASIC METABOLIC PANEL Routine 03/17/2020 3:36 AM Results for this (7) CDT procedure are i n the results section. CBC W/PLT COUNT & AUTO Routine 03/17/2020 3:36 AM Results for this DIFFERENTIAL CDT procedure are i n the results section. CBC W/PLT COUNT & AUTO Routine 03/16/2020 4:00 AM Results for this DIFFERENTIAL CDT procedure are i n the results section. BASIC METABOLIC PANEL Routine 03/16/2020 4:00 AM Results for this (7) CDT procedure are i n the results section. CBC W/PLT COUNT & AUTO Routine 03/16/2020 4:00 AM Results for this DIFFERENTIAL CDT procedure are i n the results section. CBC W/PLT COUNT & AUTO Routine 03/15/2020 6:00 AM Results for this DIFFERENTIAL CDT procedure are i n the results section. PT/APTT Routine 03/15/2020 6:00 AM Results for this CDT procedure are i n the results section. BASIC METABOLIC PANEL Routine 03/15/2020 6:00 AM Results for this (7) CDT procedure are i n the results section. CBC W/PLT COUNT & AUTO Routine 03/15/2020 6:00 AM Results for this DIFFERENTIAL CDT procedure are i n the results section. SCREEN, URINE Routine 03/14/2020 4:24 PM Results for this CDT procedure are i n the results section. SARS-COV2/RT-PCR ([facility] SEDRICK 03/14/2020 4:24 PM Results for this & REF LABS) CDT procedure are i n the results section. CBC W/PLT COUNT & AUTO Routine 03/13/2020 5:19 AM Results for this DIFFERENTIAL CDT procedure are i n the results section. BASIC METABOLIC PANEL Routine 03/13/2020 5:19 AM Results for this (7) CDT procedure are i n the results section. CBC W/PLT COUNT & AUTO Routine 03/13/2020 5:19 AM Results for this DIFFERENTIAL CDT procedure are i n the results section. TRANSFUSION SERVICE 03/12/2020 6:03 PM REPORT - SCAN CDT BASIC METABOLIC PANEL Routine 03/12/2020 4:12 AM Results for this (7) CDT procedure are i n the results section. CBC W/PLT COUNT & AUTO Routine 03/12/2020 4:08 AM Results for this DIFFERENTIAL CDT procedure are i n the results section. CBC W/PLT COUNT & AUTO Routine 03/12/2020 4:08 AM Results for this DIFFERENTIAL CDT procedure are i n the results section. URINALYSIS W/ Routine 03/11/2020 9:58 AM Results for this MICROSCOPIC CDT procedure are i n the results section. URINE CULTURE Routine 03/11/2020 9:58 AM Results for this CDT procedure are i n the results section. CBC W/PLT COUNT & AUTO Routine 03/11/2020 4:57 AM Results for this DIFFERENTIAL CDT procedure are i n the results section. TYPE AND SCREEN, Routine 03/11/2020 4:57 AM Resu lts for this AUTOMATED CDT procedure are i n the results section. PROTHROMBIN TIME/INR Routine 03/11/2020 4:57 AM Results for this CDT procedure are i n the results section. BASIC METABOLIC PANEL Routine 03/11/2020 4:57 AM Results for this (7) CDT procedure are i n the results section. CBC W/PLT COUNT & AUTO Routine 03/11/2020 4:57 AM Results for this DIFFERENTIAL CDT procedure are i n the results section. BLOOD CULTURE Routine 03/11/2020 12:22 AM Results for this CDT procedure are i n the results section. BLOOD CULTURE Routine 03/11/2020 12:22 AM Results for this CDT procedure are i n the results section. US RENAL COMPLETE STAT 03/10/2020 10:15 PM Res ults for this CDT procedure are i n the results section. SARS-COV2/RT-PCR ([facility] STAT 03/10/2020 9:43 PM Results for this & REF LABS) CDT procedure are i n the results section. LACTIC ACID, VENOUS STAT 03/10/2020 6:51 PM R esults for this CDT procedure are i n the results section. XR CHEST 1 VIEW STAT 03/10/2020 6:32 PM Resul ts for this PORTABLE/BEDSIDE CDT procedure a re in the results section. XR ABDOMEN / KUB 1 VIEW STAT 03/10/2020 6:32 PM Results for this CDT procedure are i n the results section. CBC W/PLT COUNT & AUTO STAT 03/10/2020 5:25 PM Results for this DIFFERENTIAL CDT procedure are i n the results section. COMPREHENSIVE METABOLIC Add-On 03/10/2020 5:25 PM Results for this PANEL CDT procedure are i n the results section. SCREEN, URINE STAT 03/10/2020 5:25 PM Results for this CDT procedure are i n the results section. URINALYSIS W/ REFLEX STAT 03/10/2020 5:25 PM Results for this URINE CULTURE CDT procedure are in the results section. BASIC METABOLIC PANEL STAT 03/10/2020 5:25 PM Results for this (7) CDT procedure are i n the results section. CBC W/PLT COUNT & AUTO STAT 03/10/2020 5:25 PM Results for this DIFFERENTIAL CDT procedure are i n the results section. URINE CULTURE STAT 03/10/2020 5:25 PM Results for this CDT procedure are i n the results section. RHYTHM STRIP - SCAN 02/26/2020 1:30 PM CDT CBC W/PLT COUNT & AUTO Routine 02/25/2020 4:01 AM Results for this DIFFERENTIAL CDT procedure are i n the results section. MAGNESIUM Routine 02/25/2020 4:01 AM Results for this CDT procedure are i n the results section. CBC W/PLT COUNT & AUTO Routine 02/25/2020 4:01 AM Results for this DIFFERENTIAL CDT procedure are i n the results section. BASIC METABOLIC PANEL Routine 02/25/2020 4:01 AM Results for this (7) CDT procedure are i n the results section. CBC W/PLT COUNT & AUTO Routine 02/24/2020 3:59 AM Results for this DIFFERENTIAL CDT procedure are i n the results section. MAGNESIUM Routine 02/24/2020 3:59 AM Results for this CDT procedure are i n the results section. CBC W/PLT COUNT & AUTO Routine 02/24/2020 3:59 AM Results for this DIFFERENTIAL CDT procedure are i n the results section. BASIC METABOLIC PANEL Routine 02/24/2020 3:59 AM Results for this (7) CDT procedure are i n the results section. TRANSFUSION SERVICE 02/23/2020 6:12 PM REPORT - SCAN CDT CBC W/PLT COUNT & AUTO Routine 02/23/2020 6:14 AM Results for this DIFFERENTIAL CDT procedure are i n the results section. TSH/FREE T4 IF Routine 02/23/2020 6:14 AM Result s for this INDICATED CDT procedure are i n the results section. VITAMIN D, 25-HYDROXY Routine 02/23/2020 6:14 AM Results for this CDT procedure are i n the results section. MAGNESIUM Routine 02/23/2020 6:14 AM Results for this CDT procedure are i n the results section. CBC W/PLT COUNT & AUTO Routine 02/23/2020 6:14 AM Results for this DIFFERENTIAL CDT procedure are i n the results section. BASIC METABOLIC PANEL Routine 02/23/2020 6:14 AM Results for this (7) CDT procedure are i n the results section. STOOL PATH CHARGE Routine 02/22/2020 1:38 PM Res ults for this CDT procedure are i n the results section. FECAL FAT, QUANTITATIVE Routine 02/22/2020 1:38 PM Results for this CDT procedure are i n the results section. PANCREATIC ELASTASE, Routine 02/22/2020 1:38 PM Results for this FECAL CDT procedure are i n the results section. STOOL CULTURE + SHIGA Routine 02/22/2020 1:38 PM Results for this TOXIN CDT procedure are i n the results section. C. DIFFICILE GDH TOXIN Routine 02/22/2020 1:38 PM Results for this CDT procedure are i n the results section. ABORH, MANUAL STAT 02/22/2020 5:12 AM Results for this CDT procedure are i n the results section. CBC W/PLT COUNT & AUTO STAT 02/22/2020 4:02 AM Results for this DIFFERENTIAL CDT procedure are i n the results section. TYPE AND SCREEN, STAT 02/22/2020 4:02 AM Resu lts for this AUTOMATED CDT procedure are i n the results section. CBC W/PLT COUNT & AUTO STAT 02/22/2020 4:02 AM Results for this DIFFERENTIAL CDT procedure are i n the results section. BASIC METABOLIC PANEL STAT 02/22/2020 4:02 AM Results for this (7) CDT procedure are i n the results section. MAGNESIUM Routine 02/22/2020 4:02 AM Results for this CDT procedure are i n the results section. APTT Routine 02/22/2020 4:02 AM Results for this CDT procedure are i n the results section. PROTHROMBIN TIME/INR Routine 02/22/2020 4:02 AM Results for this CDT procedure are i n the results section. FL CREATIVE SERVICES WRITER IN OR 30 Routine 02/22/2020 12:03 AM Results for this MINUTE INCREMENTS CDT procedure are in the results section. SURGICALLY OBTAINED Routine 02/21/2020 11:39 PM R esults for this CULTURE + GRAM STAIN CDT procedu re are in the results section. SURGICALLY OBTAINED Routine 02/21/2020 11:29 PM R esults for this CULTURE + GRAM STAIN CDT procedu re are in the results section. SURGICALLY OBTAINED Routine 02/21/2020 11:27 PM R esults for this CULTURE + GRAM STAIN CDT procedu re are in the results section. CYSTOSCOPY,INSERTION 02/21/2020 8:00 PM Stones in the URETERAL STENTS CDT urinary tract BLOOD CULTURE Routine 02/21/2020 7:42 PM Results for this CDT procedure are i n the results section. CBC W/PLT COUNT & AUTO Routine 02/21/2020 7:37 PM Results for this DIFFERENTIAL CDT procedure are i n the results section. LACTIC ACID, VENOUS Routine 02/21/2020 7:37 PM R esults for this CDT procedure are i n the results section. PT/APTT Routine 02/21/2020 7:37 PM Results for this CDT procedure are i n the results section. COMPREHENSIVE METABOLIC Routine 02/21/2020 7:37 PM Results for this PANEL CDT procedure are i n the results section. CBC W/PLT COUNT & AUTO Routine 02/21/2020 7:37 PM Results for this DIFFERENTIAL CDT procedure are i n the results section. BLOOD CULTURE Routine 02/21/2020 7:36 PM Results for this CDT procedure are i n the results section. SCREEN, URINE Routine 02/21/2020 7:25 PM Results for this CDT procedure are i n the results section. URINALYSIS W/ REFLEX Routine 02/21/2020 7:25 PM Results for this URINE CULTURE CDT procedure are in the results section. URINE CULTURE Routine 02/21/2020 7:25 PM Results for this CDT procedure are i n the results section. SARS-COV2/RT-PCR ([facility] STAT 02/21/2020 6:55 PM Results for this & REF LABS) CDT procedure are i n the results section. after 04/22/2019 Results Basic Metabolic Panel (03/22/2020 5:48 AM CDT)Only the most recent of14 results within the time period is included. Sodium 136 136 - 145 meq/L [facility] Potassium 4.3 3.5 - 5.1 meq/L [facility] Chloride 106 98 - 107 meq/L [facility] CO2 22 22 - 29 meq/L [facility] BUN 22 (H) 7 - 21 mg/dL [facility] Creatinine 0.93 0.57 - 1.25 mg/dL [facility] Glucose 70 70 - 105 mg/dL [facility] Calcium 9.6 8.4 - 10.2 mg/dL [facility] EGFR 82Comment: ESTIMATED GFR IS mL/min/1.73 sq m [facility] NOT ACCURATE CREATININE [facility] CLEARANCE IN PREDICTING GLOMERULAR FILTRATION RATE. ESTIMATED GFR IS NOT APPLICABLE FOR DIALYSIS PATIENTS. Specimen Blood Narrative Performed At [employer] Pan Finisher ID - JAYY Reyna [facility] Performing Organization Address City/State/Zipcode Phone Number [facility] [address] [place] [address] CENTER CBC with platelet count + automated diff (03/22/2020 3:53 AM CDT)Only the most recent of15 resultswithin the time period is included. WBC 3.9 3.5 - 10.5 K/L [facility] RBC 3.56 (L) 3.93 - 5.22 M/L [facility] Hemoglobin 8.3 (L) 11.2 - 15.7 GM/DL [facility] Hematocrit 27.6 (L) 34.1 - 44.9 % [facility] MCV 77.5 (L) 79.4 - 94.8 fL [facility] MCH 23.3 (L) 25.6 - 32.2 pg [facility] MCHC 30.1 (L) 32.2 - 35.5 GM/DL [facility] RDW 15.8 (H) 11.7 - 14.4 % [facility] Platelets 289 150 - 450 K/CU MM [facility] MPV 9.6 9.4 - 12.3 fL [facility] nRBC 0 0 - 0 /100 WBC [facility] % Neutros 59 % [facility] % Lymphs 22 % [facility] % Monos 14 % [facility] % Eos 4 % [facility] % Baso 1 % [facility] # Neutros 2.26 1.56 - 6.13 K/L [facility] # Lymphs 0.83 (L) 1.18 - 3.74 K/L [facility] # Monos 0.54 (H) 0.24 - 0.36 K/L [facility] # Eos 0.17 0.04 - 0.36 K/L [facility] # Baso 0.02 0.01 - 0.08 K/L [facility] Immature Granulocytes-Relative 1 0 - 1 % C [facility] Specimen Blood Performing Organization Address City/State/Zipcode Phone Number [facility] [address] [place] [address] CENTER SARS-CoV2/RT-PCR (Asymptomatic ONLY) (03/21/2020 6:31 PM CDT)Only the most recent of5 resultswithin the time period is included. SARS-COV2/RT-PCR Negative Not Detected, Negative, [facility] See external report for MEDICAL [facility]ENTER linked test SARS-COV-[address] [facility] Specimen Other Narrative Performed At Negative result for this test determines that [facility] [place] SARS-CoV-2 RNA was not present in the specimen above the Limit of Detection (LOD).However, Negative results do not preclude SARS-CoV-2 infection and should not be used as the sole basis for treatment or patient management decisions. Negative results must be combined with clinical observations, patient history, and epidemiological information. A false negative result may occur if a specimen is improperly collected, transported or handled.A false negative result should be considered if patient's recent exposures or clinical presentation indicate that COVID-19 (SARS-CoV-2) is likely and diagnostic tests for other causes of illness are negative.Re-testing should be considered in cases of suspected false negatives. The limit of detection for this assay is 800 copies/mL. This SARS CoV-2 test is a real-time RT-PCR test intended for the qualitative detection of nucleic acid from SARS-CoV-2 in a nasopharyngeal swab specimen collected from individuals suspected of COVID-19 by their healthcare provider. This test has not been Food and Drug Administration (FDA) cleared or approved.This is a modified version of an approved Emergency Use Authorization (EUA) and is in the process of review by the FDA. Once authorized by the FDA, the issued EUA will be effective until the declaration that circumstances exist justifying the authorization of the emergency use of in vitro diagnostic tests for detection and/or diagnosis of COVID-19 is terminated under Section 564(b)(2) of the Act or the EUA is revoked under Section 564(g) of the Act. Fact Sheet for Healthcare Providers: https://www.enEvolv/sites/default/files/pro duct/documents/Fact_Sheet_HC_Providers_Lyra_SA RS-CoV-2.pdf Fact Sheet for Healthcare Patients: https://www.enEvolv/sites/default/files/pro duct/documents/Fact_Sheet_Patients_Lyra_SARS-C oV-2.pdf Performing Laboratory: [address] [place] [address] Performing Organization Address City/State/Zipcode Phone Number [facility] [address] [place] [address] [facility] fluoro non-specific up to 1 hour (03/20/2020 2:37 PM CDT) Specimen Narrative Performed At Fluoroscopic unit utilized for a procedure performed i n the OR.No GE RIS interpretation was requested.Refer to the operativ e report for findings.Refer to PACS for patient radiation dose information. Procedure Note Interface, External Ris In - 03/20/2020 2:55 PM CDT Fluoroscopic unit utilized for a procedu re performed in the OR. No interpretation was requested. Refer to the operative r eport for findings. Refer to PACS for patient radiation dose information. Performing Organization Address City/State/Zipcode Phone Number GE RIS STONE ANALYSIS (03/20/2020 2:04 PM CDT) SPECIMEN SOURCE([facility]) LEFT KIDNEY STONE [facility] COMPONENT 1 ([facility]) See Below [facility] Comment: INCORPORATED Calcium Oxalate Dihydrate (Weddellite) 80% Carbonate Apatite (Dahllite) 10% Uric Acid 10% This test was developed and its analytical perfo rmance characteristics have been determined by [employer]. It has not been cleared or approved by the FDA. This assay has been validated pursuant to [facility] CLIA regulations and is used for clinical purposes. COMPONENT 2 (QUEST) DNR [facility] Stone Weight 0.007 g [facility] Specimen Calculus Narrative Performed At Performing Lab Apartment [facility] *NELLY [employer] [facility], [address] [place] [phone] Sandy Guzman MD, PhD Performing Organization Address City/[facility] Hospitalcode Phone Number [facility] [place] [address] [address] [place] [address] hCG, quantitative, (03/19/2020 12:58 AM CDT) hCG Quant 2 0 - 10 mIU/mL [facility] Specimen Blood Narrative Performed At Non- Females: <10 mIU/mL [facility] Females: Gestation AgeReference Range(mIU/mL) 0.2-1 Week5-50 1-2 [id number] 2-3 Weeks 100-5,000 3-4 Weeks 500-10,000 4-5 Weeks 1,000-50,000 5-6 Weeks10,000-100,000 6-8 Weeks15,000-200,000 2-3 Months 10,000-100,000 [employer] ID - SHANIKA Nino Performing Organization Address City/State/Zipcode Phone Number [facility] [address] [place] [address] CENTER Screen, urine (03/17/2020 5:32 AM CDT)Only the most recent of4 resultswithin the time period is included. Preg Test, Ur Negative [facility] Specimen Urine Performing Organization Address City/State/Zipcode Phone Number [facility] [address] [place] [address] CENTER PT/aPTT (03/15/2020 6:00 AM CDT)Only the most recent of2 resultswithin the time period is included. Protime 14.1 11.9 - 14.2 seconds [facility] INR 1.13 <=5.90 [facility] PTT 39.4 (H) 22.5 - 36.0 seconds [facility] Specimen Blood Narrative Performed At Effective 12/10/2018: PT Reference Range [facility] Change New: 11.9-14.2Previous: 11.7-14.7 RECOMMENDED COUMADIN/WARFARIN INR THERAPY RANGES STANDARD DOSE: 2.0-3.0Includes: PROPHYLAXIS for venous thrombosis, systemic embolization; TREATMENT for venous thrombosis and/or pulmonary embolus. HIGH RISK: Target INR is 2.5-3.5 for patients wiht mechanical heart valves. Performing Organization Address City/[facility]/Zipcode Phone Number [facility] [address] [place] [address] [place] TRANSFUSION SERVICE REPORT - SCAN (03/12/2020 6:03 PM CDT)Only the most recent of2 resultswithin the time period is included. Narrative Performed At This result has an attachment that is no t available. Urinalysis w/Microscopic (03/11/2020 9:58 AM CDT) Color, UA Yellow [facility] Clarity, UA Hazy [facility] Specific [place], UA 1.013 1.001 - 1.[address] [facility] MEDICAL [facility] ER pH, UA 7.0 5.0 - 8.[address] [facility] MEDICAL [facility] ER Protein, UA 70 mg/dL (A) Negative [facility] Glucose, UA Negative Negative [facility] Ketones, UA Negative Negative [facility] Bilirubin, UA Negative Negative [facility] Blood, UA Large (A) Negative [facility] Nitrite, UA Negative Negative [facility] Leukocytes, UA Large (A) Negative [facility] Urobilinogen, UA 0.2 0.2 - 1.0 mg/dL [facility] RBC, UA 1,139 /HPF [facility] WBC, UA 370Comment: Moderate WBC /HPF [facility] clumps. [facility] ER Mucus Occasional [facility] Squam Epithel, UA 2 /HPF [facility] Specimen Source [facility] Specimen Urine Narrative Performed At Almond Pan Finisher ID - [auto] [facility] Almond Pan Finisher ID - tech Performing Organization Address City/[facility] Hospitalcode Phone Number [address] [address] CENTER Urine culture (03/11/2020 9:58 AM CDT)Only the most recent of3 resultswithin the time period is included. Result >100,000 col/mL Blanca glabrata [facility] (A)Comment: This is an appended CENTER report. These organism results have been appended to a previously final verified report. Specimen Urine Narrative Performed At 50-59,000 col/mL skin erlinda [facility] Organism Antibiotic Method Susceptibility Blanca glabrata Fluconazole 2: Dose Depende nt Susceptible Blanca glabrata Micafungin 0.015: Suscepti ble Performing Organization Address [facility] Hospitalcode Phone Number [address] [address] CENTER Type and screen, automated (03/11/2020 4:57 AM CDT)Only the most recent of2 resultswithin the time period is included. ABO/RH AUTOMATED (BEAKER) O POSITIVE [facility] Ab Scrn NEGATIVE [facility] Specimen Blood Performing Organization Address [facility]/Zipcode Phone Number [facility] [address] [place] [phone] Prothrombin time/INR (03/11/2020 4:57 AM CDT)Only the most recent of2 results within the time period is included. Protime 13.9 11.9 - 14.2 seconds [facility] INR 1.10 <=5.90 [facility] Specimen Blood Narrative Performed At Effective 12/10/2018: PT Reference Range [facility] Change New: 11.9-14.2Previous: 11.7-14.7 RECOMMENDED COUMADIN/WARFARIN INR THERAPY RANGES STANDARD DOSE: 2.0-3.0Includes: PROPHYLAXIS for venous thrombosis, systemic embolization; TREATMENT for venous thrombosis and/or pulmonary embolus. HIGH RISK: Target INR is 2.5-3.5 for patients wiht mechanical heart valves. Performing Organization Address [facility] Hospitalconh Phone Number [address] [address] CENTER Blood Culture - Routine (Left Venipuncture) (03/11/2020 12:22 AM CDT)Only the most recent of4 resultswithin the time period is included. Result No growth in 5 days [facility] Specimen Blood Performing Organization Address [facility]/Zipcode Phone Number [address] [address] CENTER US renal complete (03/10/2020 10:15 PM CDT) Specimen Narrative Performed At FINAL REPORT [employer] Ultrasound of the Kidneys Clinical History:Fever and abnormal labs. Comparison: None. Discussion: Sonographic evaluation of the kidneys wa s performed. Right kidney:12 x 6.5 x 4.3cm, with cortical t hickness of 1.3 cm. Normal cortical echogenicity. Increased echogenicity within the medullary pyramids. No mass.No shado wing calculus.No hydronephrosis. Left kidney: 11.6 x 5.1 x 6.2 cm, with c ortical thickness of 1.2 cm. Normal cortical echogenicity.Increas ed echogenicity within the medullary pyramids.No mass.No sh adowing calculus.No hydronephrosis. Limited doppler evaluation of bilateral main renal arteries and veins demonstrate patency. Bladder: Underdistended and thin-walled. Stent noted within the urinary bladder. Impression: No hydronephrosis. Increased echogenicity within the bilate ral medullary pyramids for which medullary nephrocalcinosis cannot be excluded. Signed: Cruzito Nowak MD Report Verified Date/Time:03/10/2020 22:46:18 Procedure Note Interface, External Ris In - 03/10/2020 10:48 PM CDT FINAL REPORT Ultrasound of the Kidneys Clinical History: Fever and abnormal la bs. Comparison: None. Discussion: Sonographic evaluation of the kidneys wa s performed. Right kidney: 12 x 6.5 x 4.3 cm, with cortical thickness of 1.3 cm. Normal cortical echogenicity. Increased echogenicity within the medullary pyramids. No mass. No shadowi ng calculus. No hydronephrosis. Left kidney: 11.6 x 5.1 x 6.2 cm, with c ortical thickness of 1.2 cm. Normal cortical echogenicity. Increased echogenicity within the medullary pyramids. No mass. No shadow ing calculus. No hydronephrosis. Limited doppler evaluation of bilateral main renal arteries and veins demonstrate patency. Bladder: Underdistended and thin-walled. Stent noted within the urinary bladder. Impression: No hydronephrosis. Increased echogenicity within the bilate ral medullary pyramids for which medullary nephrocalcinosis cannot be excluded. Signed: Cruzito Nowak MD Report Verified Date/Time: 03/10/2020 2 2:46:18 Performing Organization Address City/State/Zipcode Phone Number GE [facility] Lactic acid, venous (03/10/2020 6:51 PM CDT)Only the most recent of2 results within the time period is included. Lactate, Venous 0.91 0.50 - 2.20 mmol/L [facility] CENTER Specimen Blood Narrative Performed At Almond Pan Finisher ID - NTP [facility] Performing Organization Address City/State/Zipcode Phone Number [facility] [address] [place] [address] CENTER XR chest 1 view portable / bedside (03/10/2020 6:32 PM CDT) Specimen Narrative Performed At FINAL REPORT [facility] TECHNIQUE: RAD, CHEST, 1 VIEW, NON DEPT, RAD, ABDOMEN/KUB, 1 VIEW AP INDICATION: FEVER COMPARISON: None. FINDINGS: Cardiac mediastinal contours within norm al limits. There are patchy opacities in the bilateral mid and lower lung zones. No free intracranial air. There are bilateral ureteral stents. The re are multiple densities adjacent to the proximal portion of the stent and may represent ureteral calculi along the course of the stent. Multiple calculi project over the bilateral renal shadows , right greater than left. Bowel gas pattern is indeterminate due t o paucity of small bowel gas. IMPRESSION: Patchy opacities in the bilateral lung b ases which may represent pneumonia and/or atelectasis. Bilateral ureteral stents with calculi a long the course of the proximal right stent likely within the u reter. There are multiple additional bilateral nonobstructing calc shelia, right greater than left.. Signed: Charles Medina MD Report Verified Date/Time:03/10/2020 19:03:48 Reading Location: [address] Reading Room Procedure Note Interface, External Ris In - 03/10/2020 7:05 PM CDT FINAL REPORT TECHNIQUE: RAD, CHEST, 1 VIEW, NON DEPT, RAD, ABDOMEN/KUB, 1 VIEW AP INDICATION: FEVER COMPARISON: None. FINDINGS: Cardiac mediastinal contours within norm al limits. There are patchy opacities in the bilateral mid and lower lung zones. No free intracranial air. There are bilateral ureteral stents. The re are multiple densities adjacent to the proximal portion of the stent and may represent ureteral calculi along the course of the stent. Multiple calculi project over the bilateral renal shadows , right greater than left. Bowel gas pattern is indeterminate due t o paucity of small bowel gas. IMPRESSION: Patchy opacities in the bilateral lung b ases which may represent pneumonia and/or atelectasis. Bilateral ureteral stents with calculi a long the course of the proximal right stent likely within the u reter. There are multiple additional bilateral nonobstructing calc shelia, right greater than left.. Signed: Charles Medina MD Report Verified Date/Time: 03/10/2020 1 9:03:48 Reading Location: [address] Reading Room Performing Organization Address City/State/Zipcode Phone Number GE [facility] XR abdomen / KUB 1 view (03/10/2020 6:32 PM CDT) Specimen Narrative Performed At FINAL REPORT GE [facility]IS TECHNIQUE: RAD, CHEST, 1 VIEW, NON DEPT, RAD, ABDOMEN/KUB, 1 VIEW AP INDICATION: FEVER COMPARISON: None. FINDINGS: Cardiac mediastinal contours within norm al limits. There are patchy opacities in the bilateral mid and lower lung zones. No free intracranial air. There are bilateral ureteral stents. The re are multiple densities adjacent to the proximal portion of the stent and may represent ureteral calculi along the course of the stent. Multiple calculi project over the bilateral renal shadows , right greater than left. Bowel gas pattern is indeterminate due t o paucity of small bowel gas. IMPRESSION: Patchy opacities in the bilateral lung b ases which may represent pneumonia and/or atelectasis. Bilateral ureteral stents with calculi a long the course of the proximal right stent likely within the u reter. There are multiple additional bilateral nonobstructing calc shelia, right greater than left.. Signed: Charles Medina MD Report Verified Date/Time:03/10/2020 19:03:48 Reading Location: [facility] [address] [place] [address] Reading Room Procedure Note Interface, External Ris In - 03/10/2020 7:05 PM CDT FINAL REPORT TECHNIQUE: RAD, CHEST, 1 VIEW, NON DEPT, RAD, ABDOMEN/KUB, 1 VIEW AP INDICATION: FEVER COMPARISON: None. FINDINGS: Cardiac mediastinal contours within norm al limits. There are patchy opacities in the bilateral mid and lower lung zones. No free intracranial air. There are bilateral ureteral stents. The re are multiple densities adjacent to the proximal portion of the stent and may represent ureteral calculi along the course of the stent. Multiple calculi project over the bilateral renal shadows , right greater than left. Bowel gas pattern is indeterminate due t o paucity of small bowel gas. IMPRESSION: Patchy opacities in the bilateral lung b ases which may represent pneumonia and/or atelectasis. Bilateral ureteral stents with calculi a long the course of the proximal right stent likely within the u reter. There are multiple additional bilateral nonobstructing calc shelia, right greater than left.. Signed: Charles Medina MD Report Verified Date/Time: 03/10/2020 1 9:03:48 Reading Location: [address] Reading Room Performing Organization Address City/State/Zipcode Phone Number [facility] [place]) Urinalysis w/Microscopic + Reflex to Culture (03/10/2020 5:25 PM CDT)Only the most recent of2 resultswithin the time period is included. Color, UA Yellow [facility] Clarity, UA Hazy [facility] Specific [place], UA 1.011 1.001 - 1.035 [facility] pH, UA 6.5 5.0 - 8.0 [facility] Protein, UA 30 mg/dL (A) Negative [facility] Glucose, UA Negative Negative [facility] Ketones, UA Negative Negative [facility] Bilirubin, UA Negative Negative [facility] Blood, UA Large (A) Negative [facility] Nitrite, UA Negative Negative [facility] Leukocytes, UA Large (A) Negative [facility] Urobilinogen, UA 0.2 0.2 - 1.0 mg/dL [facility] RBC, UA 1,277 /HPF [facility] WBC, UA 245 /HPF [facility] Mucus Rare [facility] Specimen Source [facility] Specimen Urine Narrative Performed At Almond Pan Finisher ID - [auto] [facility] Almond Pan Finisher ID - enoch Performing Organization Address City/State/Zipcode Phone Number [facility] [address] [place] [address] [place] Comprehensive metabolic panel (03/10/2020 5:25 PM CDT)Only the most recent of2 resultswithin the time period is included. Protein, Total 8.2 6.0 - 8.3 gm/dL [facility] Albumin 3.5 3.5 - 5.0 g/dL [facility] Alkaline Phosphatase 835 (H) 40 - 150 U/L [facility] Total Bilirubin 0.4 0.2 - 1.2 mg/dL [facility] Sodium 135 (L) 136 - 145 meq/L [facility] Potassium 4.8 3.5 - 5.1 meq/L [facility] Chloride 106 98 - 107 meq/L [facility] CO2 19 (L) 22 - 29 meq/L [facility] BUN 23 (H) 7 - 21 mg/dL [facility] Creatinine 1.19 0.57 - 1.25 mg/dL [facility] Glucose 89 70 - 105 mg/dL [facility] Calcium 11.1 (H) 8.4 - 10.2 mg/dL [facility] AST 25 5 - 34 U/L [facility] ALT 27 6 - 55 U/L [facility] EGFR 62Comment: ESTIMATED GFR mL/min/1.[address] [facility] IS NOT ACCURATE [facility] CREATININE CLEARANCE IN PREDICTING GLOMERULAR FILTRATION RATE. ESTIMATED GFR IS NOT APPLICABLE FOR DIALYSIS PATIENTS. Specimen Blood Narrative Performed At Almond Pan Finisher ID - NTP [facility] Specimen slightly lipemic Performing Organization Address City/[facility] Phone Number [address] [address] CENTER RHYTHM STRIP - SCAN (02/26/2020 1:30 PM CDT) Narrative Performed At This result has an attachment that is no t available. Magnesium (02/25/2020 4:01 AM CDT)Only the most recent of4 resultswithin the time period is included. Magnesium 1.8 1.6 - 2.6 mg/dL [facility] Specimen Blood Narrative Performed At Almond Pan Finisher ID - EDASI [facility] Performing Organization Address City/[facility] Phone Number [address] [address] CENTER TSH/Free T4 If Indicated (02/23/2020 6:14 AM CDT) TSH 1.404 0.350 - 4.940 uIU/mL [facility] Specimen Blood Narrative Performed At Almond Pan Finisher ID - DB [facility] Performing Organization Address City/[facility] Phone Number [address] [address] CENTER Vitamin D, 25-Hydroxy (02/23/2020 6:14 AM CDT) Vitamin D 25-Hydroxy 6.2 (L) 6.6 - 49.9 ng/mL [facility] Specimen Blood Narrative Performed At Effective 04/24/2017: Reference Range Tera garber [facility] New: 6.6-49.9 ng/mL Previous: 13.0-47.8 ng/mL Recommended Vitamin D Target Range: 30.0-40.0 ng/mL Almond Pan Finisher ID - DB Performing Organization Address [facility] Phone Number [address] [address] [place] Clostridium difficile [facility] Toxin (02/22/2020 1:38 PM CDT) C. Difficle Toxin Negative Negative [facility] C. Difficile [facility] Antigen NegativeComment: No Negative [facility] indication of Clostridium [facility] difficile infection and no colonization. Discontinue enteric isolation and therapy. Specimen Stool Narrative Performed At Testing performed by [employer] [facility] Assay.For [facility], published sensitivity of the assay is 98.7% compared to cytotoxicity testing.For Toxin AB, published sensitivity is 87.8% and specificity 99.4% compared to cytotoxicity testing. Verification of kit performance was done by the [facility] prior to clinical use. Performing Organization Address [facility] Phone Number [address] [address] [place] STOOL PATH CHARGE (02/22/2020 1:38 PM CDT) Pathogen exam charged Done [facility] Specimen Stool Performing Organization Address [facility]/Zipcode Phone Number [address] [address] [place] Pancreatic elastase, fecal (02/22/2020 1:38 PM CDT) Pancreatic Elastase >500 mcg/g [facility] Comment: INC[facility]PORATED Adult and Pediatric Reference Ranges for Pancreatic Elastase-1: Normal:>200 mcg/g Moderate Pancreatic Insufficiency: 100-200 mcg/g Severe Pancreatic Insufficiency:<100 mcg/g Elastase-1 (E-1) assay results are expressed in mcg/g, which represent mcg E1/g feces. It is not necessary to interrupt enzyme substitution therapy. Specimen Stool Narrative Performed At Performing Lab Apartment [facility] [employer] Hrenandez [facility] [address] [address] [place] [address] Tati Wallace MD, PhD, KATHRYN Performing Organization Address [facility] Phone Number [facility] [place] [address] INCORPORATED [address] [facility] Fecal fat, quantitative (02/22/2020 1:38 PM CDT) Total Weight 5 g [facility] Collection Time Hrs NOT GIVEN h [facility] Fecal Lipids, Total SEE BELOW <7 g/24 h [facility] Comment: INCORPORATED RESULT: No collection duration received. Specimen treate d as a random collection. Therefore, the results are reported in weight of lipid per gram of stool. Reference ranges do not apply. The random fecal lipid result was 0.0075 gram lipids per gram of stool. This test was developed and its analytical perfo rmance characteristics have been determined by [employer] [facility]. It has not been cleared or approved by FDA. This assay has been validated pursuant to the CLIA regulations and is used for clinical purposes. Specimen Stool Narrative Performed At Performing Lab Apartment [facility] EZ [employer] [facility] [address] [address] [place] [address] Tati Wallace MD, PhD, KATHRYN Performing Organization Address [facility] Phone Number [facility] [employer] [facility] [address] INCORPORATED [address] [facility] Stool culture + Shiga toxin (02/22/2020 1:38 PM CDT) Result No Salmonella, Shigella or [facility] Campylobacter isolated [facility] Specimen Stool Narrative Performed At Unable to test for Shiga Toxin 1 due to [facility] insufficient growth of specimen. Unable to test for Shiga Toxin 2 due to insufficient growth of specimen. Resubmit new specimen if clinically indicated. Performing Organization Address City/[facility]/Zipcode Phone Number [facility] [address] [place], [place] [phone] CENTER ABORH, manual (02/22/2020 5:12 AM CDT) ABO Grouping [facility] [facility] Specimen Blood Performing Organization Address [facility] Phone Number [facility] [address] [place] [address] aPTT (02/22/2020 4:02 AM CDT) PTT 47.6 (H) 22.5 - 36.0 seconds [facility] Specimen Blood Performing Organization Address [facility] Phone Number [address] [phone] [place] radio communication coordinator in or 30 minute increments (02/22/2020 12:03 AM CDT) Specimen Narrative Performed At Fluoroscopic unit utilized for a procedure performed i n the OR.No [email or web address] RIS interpretation was requested.Refer to the operativ e report for findings.Refer to PACS for patient radiation dose information. Procedure Note Interface, External Ris In - 02/22/2020 6:08 PM CDT Fluoroscopic unit utilized for a procedu re performed in the OR. No interpretation was requested. Refer to the operative r eport for findings. Refer to PACS for patient radiation dose information. Performing Organization Address [facility] Phone Number GE RIS Surgically obtained culture + gram stain (02/21/2020 11:39 PM CDT)Only the most recent of3 resultswithin the time period is included. Result From Broth Only Same organis m has been isolated from culture(s) of the same body site and collection date. Repeat identification performed only after consultation with the clinical microbiology laboratory. (A) [facility] Comment: [facility] Refer to previous culture of Prevotella bivia Gram Stain Result 3+ WBCs [facility] Gram Stain Result 2+ gram negative rods [facility] [place] [place] Specimen Urine Narrative Performed At [facility] Performing Organization Address City/State/Zipcode Phone Number [facility] [address] [place] [address] CENTER after 04/22/2019 Insurance Payer Benefit Plan / Group Subscriber ID Type Phone A ddress MEDICAID MEDICAID [facility] xxxxxxxxx Medicaid CDC REVIEW CDC REVIEW xxxxxxxx [address] [place], [place] [phone] Advance Directives For more information, please contact:[facility] [place], [place] [phone] Code Status Date Activated Date Inactivated Comments Full Code 03/10/2020 9:03 PM 03/22/2020 2:24 PM This code status was determined by: Patient Full Code 02/21/2020 5:19 PM 02/25/2020 7:36 PM This code status was determined by: Patient
--- OUTSIDE RECORDS SUMMARY | 2020-04-22 09:35 | XMS REPORT | Continuity of Care Document ---
:1980 Author Organization [facility] t Address [address] [place] [address] Care Team Providers Name Role Phone Aris TELLEZ, [place] Attending Clinician CHRIS DEL CASTILLO Attending Clinician Unavailable Chris Del Castillo MD Attending Clinician Cheryle Escamilla MD Attending Clinician Juan TELLEZ Attending Clinician Merchant TELLEZ Attending Clinician Tushar TELLEZ, Chu Attending Clinician Margareth KWONG Attending Clinician Unavailable Denzel TELLEZ, Margareth Attending Clinician Myrtle TELLEZ, In Attending Clinician Brian TELLEZ, P. Attending Clinician Marilu TELLEZ, Thi Attending Clinician DR NEMO Attending Clinician Unavailable Scotty TELLEZ Attending Clinician JUAN Admitting Clinician Unavailable ROME AYOUB Admitting Clinician Unavailable DR NEMO Admitting Clinician Unavailable Payers Payer Name Policy Policy Number Effective Expiration Source Type Date Date MEDICAIDMEDICAID OF xxxxxxxxx [facility] [place] CDC REVIEWCDC xxxxxxxx [place] [address] Medical Center Problems Condition Condition Condition Status Onset Resolution Last Treating Co mments Source Name Details Category Date Date Treatment Clinician Date Fever, Fever, Disease Active [facility] unspecifie unspecifie 03-11 Daya kes - d fever d fever 00:00: Medical cause cause 00 Center UTI UTI Disease Active [facility] (urinary (urinary 03-10 [facility] - tract tract 00:00: Medical infection) infection) 00 Ce nter Obstructiv Obstructiv Disease Active [facility] e uropathy e uropathy 02-20 Daya kes - 00:00: Medical 00 [place] Sepsis Sepsis Disease Active [facility] secondary secondary 02-20 [facility] - to UTI to UTI 00:00: Medical 00 Center MARIA GUADALUPE (acute MARIA GUADALUPE (acute Disease Active [facility] kidney kidney 02-20 [facility] - injury) injury) 00:00: Medical 00 [place] Sarcoidosi Sarcoidosi Disease Active [facility] s s 02-20 [facility] - 00:00: Medical 00 [place] Ureteral Ureteral Disease Active [facility] stone with stone with 02-20 Daya kes - hydronephr hydronephr 00:00: Me dical osis osis 00 [place] Stones in Stones in Disease Active Overview: [facility] the the 02-20 Added [facility] - urinary urinary 00:00: automatic Medic al tract tract 00 ally from Center request for surgery [id number] Allergies, Adverse Reactions, Alerts Allergy Allergy Status Severity Reaction(s) Onset Inactive Treating Comm ents Source Name Type Date Date Clinician Penicill Propensi Active Augmentin [facility] ins ty to 02-28 --"swelli [facility] - adverse 00:00: ng of Medical reaction 00 arms, [place] s feet and lips" Iodine Drug Active Hives [facility] And Allergy 02-20 [facility] - Iodide 00:00: Medical Containi 00 Center ng Products Shellfis Propensi Active Hives [facility] h ty to 02-20 [facility] - Containi adverse 00:00: Medical ng reaction 00 Center Products s Social History Social Habit Start Date Stop Date Quantity Comments Source History SDOH Alcohol [facility] - Std Drinks [facility] History SDMA Alcohol [facility] - Binge [facility] Sex Assigned At [facility] Center History SDOH Alcohol 2020-03-11 2020-03-[address] [facility] - Frequency 00:00:00 00:00:00 Medical Center Smoking Status Start Date Stop Date Source Former smoker 2020-03-22 00:00:00 2020-03-22 00:00:[address] [facility] Center Medications Ordered Filled Start Stop Current Ordering Indication Dosage Frequency Signature Comments Components Source Medication Medication Date Date Medication? Clinician (SIG) Name Name fluconazole 2019- No 200mg QD Take [address] (DIFLUCAN) 03-23 tablet [facility] - 200 MG 00:00: 23:59 (200 mg Medical tablet 00 :00 total) by Center mouth daily for 7 days. HYDROcodone 2020- No pain 1{tbl} Take [address] -acetaminop 03-22 tablet by Daya rubin (NORCO 00:00: 23:59 mouth Medic al 5-325) 00 :00 every 6 Center 5-325 mg (six) per tablet hours as needed for Pain for up to 10 days. Max Daily Amount: 4 tablets ciprofloxac 2019- No 500mg Take [address] in HCl 03-22 tablet [facility] - (CIPRO) 500 00:00: 23:59 (500 mg Me dical MG tablet 00 :00 total) by [facility] mouth every 12 (twelve) hours for 7 days. HYDROcodone 2019- No 1{tbl} Take [address] -acetaminop 03-22 tablet by Daya rubin (NORCO 00:00: 00:00 mouth Medic al 5-325) 00 :00 every 6 Center 5-325 mg (six) per tablet hours as needed for up to 10 days. Max Daily Amount: 4 tablets lactobacill 2019-0 Yes 1{capsu QD Take [address] us 8-28 le} capsule by [facility] - rhamnosus, 00:43: mouth Medica l GG, 49 daily. [place] (CULTURELLE ) 10 billion cell capsule multivitami 2019-0 Yes 1{tbl} QD Take [address] n per 8-28 tablet by [facility] - tablet 00:43: mouth Medical 49 daily. [place] acetaminoph 2019- Yes pain 1000mg Take 1,[address] en 8-28 mg by [facility] - (TYLENOL) 00:43: mouth Medical 500 MG 48 every 6 Center tablet (six) hours as needed for Pain. ferrous 2020-0 Yes anemia from 325mg Take [address] sulfate 325 8- inadequate mg by L ukes - (65 FE) MG 00:43: iron mouth Medica l tablet 48 daily with Center breakfast. metroNIDAZO 2019-0 2020- No 500mg [id number] Take [address] LE (FLAGYL) 02-28 [id number] mg by [facility] - 500 MG 00:00: 00:00 3D mouth 3 Medical tablet 00 :00 (three) Center times daily FOR 10 DAYS. tamsulosin 2020-0 Yes .4mg QD Take 1 [facility] t (FLOMAX) 02-25 capsule [facility] - 0.4 mg Cap 00:00: (0.4 mg Medi [facility] 24 hr 00 total) by Center capsule mouth daily. predniSONE 2019-0 2020- Yes 10mg QD Take [address] (DELTASONE) 02-25-12 tablet (10 L ukes - 10 MG 00:00: 23:59 mg total) Medica l tablet 00 :00 by mouth Center daily for 90 days. pantoprazol 2019-0 2020- No 40mg Q.5D Take [address] e 02-24 tablet (40 [facility] - (PROTONIX) 00:00: 23:59 mg total) M edical 40 MG 00 :00 by mouth 2 Center tablet (two) times daily for 30 days. amoxicillin 2019-0 2020- No 1{tbl} Q.5D Take [address] -clavulanat 02-24 tablet by Daya kes - e 00:00: 00:00 mouth 2 Medical (AUGMENTIN) 00 :00 (two) Center 875-125 mg times per tablet daily for 14 days. phenazopyri 2019-0 2020- No 95mg Take [address] dine 02-24-16 tablet (95 [facility] - (PYRIDIUM) 00:00: 23:59 mg total) M edical 95 MG 00 :00 by mouth 3 Center tablet (three) times daily with meals for 3 days. Vital Signs Vital Name Observation Time Observation Value Comments Source Systolic blood 2020-03-22 07:36:00 114 mm[Hg] [facility] Diastolic blood 2020-03-22 07:36:00 77 mm[Hg] [facility] Heart rate 2020-03-22 07:36:00 83 /min [facility] Body temperature 2020-03-22 07:36:00 36.89 [facility] Respiratory rate 2020-03-22 07:36:00 19 /min [facility] Oxygen saturation in 2020-03-22 07:36:00 100 /min [facility] Arterial blood by Medical Ce nter Pulse oximetry Body height 2020-03-10 17:06:00 162.6 cm [facility] Body weight Measured 2020-03-10 17:06:00 78.019 kg [facility] BMI 2020-03-10 17:06:00 29.52 kg/m2 [facility] Procedures Procedure Date / Time Performed Performing Clinician Sour e BASIC METABOLIC PANEL (7) 2020-03-22 05:48:00 [facility] CBC W/PLT COUNT & AUTO 2020-03-22 03:53:00 [facility] SARS-COV2/RT-PCR ([facility] & 2020-03-21 18:31:00 PopatSally [facility] - REF LABS) [facility] BASIC METABOLIC PANEL (7) 2020-03-21 04:22:00 [facility] CBC W/PLT COUNT & AUTO 2020-03-21 04:22:00 [facility] [place] FLUORO NON-SPECIFIC UP 2020-03-20 14:37:00 Freddie Ayoub [facility] - TO 1 HOUR [facility] STONE ANALYSIS 2020-03-20 14:04:05 Freddie Ayoub [facility] CYSTOSCOPY,URETEROSCOPY 2020-03-20 08:00:00 Freddie Ayoub [facility] BASIC METABOLIC PANEL (7) 2020-03-20 04:48:00 [facility] CBC W/PLT COUNT & AUTO 2020-03-20 04:48:00 [facility] HCG, QUANTITATIVE, 2020-03-19 00:58:00 Marvin Garcia [facility] SARS-COV2/RT-PCR ([facility] & 2020-03-18 22:05:00 RadhaMarvin addison [facility] - REF LABS) [facility] SCREEN, URINE 2020-03-17 05:32:00 Elisa Manzanares [facility] BASIC METABOLIC PANEL (7) 2020-03-17 03:36:00 [facility] CBC W/PLT COUNT & AUTO 2020-03-17 03:36:00 [facility] BASIC METABOLIC PANEL (7) 2020-03-16 04:00:00 [facility] CBC W/PLT COUNT & AUTO 2020-03-16 04:00:00 [facility] BASIC METABOLIC PANEL (7) 2020-03-15 06:00:00 [facility] PT/APTT 2020-03-15 06:00:00 [facility] CBC W/PLT COUNT & AUTO 2020-03-15 06:00:00 [facility] SARS-COV2/RT-PCR ([facility] & 2020-03-14 16:24:00 [facility] REF LABS) [facility] SCREEN, URINE 2020-03-14 16:24:00 Popmaty, [place] [facility] BASIC METABOLIC PANEL (7) 2020-03-13 05:19:00 Yazmin Escamilla sa [facility] CBC W/PLT COUNT & AUTO 2020-03-13 05:19:00 Yazmin Escamilla [facility] TRANSFUSION SERVICE 2020-03-12 18:03:00 Josesito Barber [facility] REPORT - SCAN [facility] BASIC METABOLIC PANEL (7) 2020-03-12 04:12:00 Yazmin Escamilla sa [facility] CBC W/PLT COUNT & AUTO 2020-03-12 04:08:00 Yazmin Escamilla [facility] URINE CULTURE 2020-03-11 09:58:00 ArisSreedharFreddiedesirae Polanco [facility] URINALYSIS W/ MICROSCOPIC 2020-03-11 09:58:00 Jody Ayoubm Ruby spear [facility] BASIC METABOLIC PANEL (7) 2020-03-11 04:57:00 Yazmin Escamilla sa [facility] PROTHROMBIN TIME/INR 2020-03-11 04:57:00 Yazmin Escamilla I [facility] TYPE AND SCREEN, 2020-03-11 04:57:00 Yazmin Escamilla [facility] AUTOMATED [facility] CBC W/PLT COUNT & AUTO 2020-03-11 04:57:00 Yazmin Escamilla [facility] BLOOD CULTURE 2020-03-11 00:22:00 Yazmin Escamilla [facility] US RENAL COMPLETE 2020-03-10 22:15:00 Sunny Del Castillo [facility] SARS-COV2/RT-PCR ([facility] & 2020-03-10 21:43:00 Sunny Del Castillo [facility] - REF LABS) [facility] LACTIC ACID, VENOUS 2020-03-10 18:51:00 Sunny Del Castillo [facility] XR ABDOMEN / KUB 1 VIEW 2020-03-10 18:32:00 Sunny Del Castillo [facility] XR CHEST 1 VIEW 2020-03-10 18:32:00 Sunny Del Castillo [facility] - PORTABLE/BEDSIDE Medical Center URINE CULTURE 2020-03-10 17:25:00 Sunny Del Castillo [facility] BASIC METABOLIC PANEL (7) 2020-03-10 17:25:00 Sunny Del Castillo [facility] URINALYSIS W/ REFLEX 2020-03-10 17:25:00 Sunny Del Castillo [facility] URINE CULTURE [facility] SCREEN, URINE 2020-03-10 17:25:00 Sunny Del Castillo [facility] COMPREHENSIVE METABOLIC 2020-03-10 17:25:00 Yazmin Escamilla [facility] CBC W/PLT COUNT & AUTO 2020-03-10 17:25:00 Sunny Del Castillo [facility] RHYTHM STRIP - SCAN 2020-02-26 13:30:21 Provider, Default [facility] BASIC METABOLIC PANEL (7) 2020-02-25 04:01:00 Arnulfo Iraheta In [facility] MAGNESIUM 2020-02-25 04:01:00 Arnulfo Iraheta In [facility] CBC W/PLT COUNT & AUTO 2020-02-25 04:01:[address] [facility] BASIC METABOLIC PANEL (7) 2020-02-24 03:59:00 Arnulfo Iraheta In [facility] MAGNESIUM 2020-02-24 03:59:00 Arnulfo Iraheta In [facility] CBC W/PLT COUNT & AUTO 2020-02-24 03:59:[address] [facility] TRANSFUSION SERVICE 2020-02-23 18:12:34 Provider, Default [facility] BASIC METABOLIC PANEL (7) 2020-02-23 06:14:00 Arnulfo Iraheta In [facility] MAGNESIUM 2020-02-23 06:14:00 Arnulfo Iraheta In [facility] VITAMIN D, 25-HYDROXY 2020-02-23 06:14:00 Arnulfo Iraheta In [facility] TSH/FREE T4 IF INDICATED 2020-02-23 06:14:00 Arnulfo Iraheta In [facility] CBC W/PLT COUNT & AUTO 2020-02-23 06:14:[address] [facility] C. DIFFICILE GDH TOXIN 2020-02-22 13:38:00 Arnulfo Iraheta In [facility] STOOL CULTURE + SHIGA 2020-02-22 13:38:00 Arnulfo Iraheta In [facility] PANCREATIC ELASTASE, 2020-02-22 13:38:00 Arnulfo Iraheta In [facility] FECAL FAT, QUANTITATIVE 2020-02-22 13:38:00 Arnulfo Iraheta In [facility] STOOL PATH CHARGE 2020-02-22 13:38:00 Arnulfo Iraheta In [facility] ABORH, MANUAL 2020-02-22 05:12:00 Mary Ann Holcomb [facility] PROTHROMBIN TIME/INR 2020-02-22 04:02:00 Kurt Lin [facility] APTT 2020-02-22 04:02:00 Kurt Lin [facility] MAGNESIUM 2020-02-22 04:02:00 Arnulfo Iraheta In [facility] BASIC METABOLIC PANEL (7) 2020-02-22 04:02:00 Ra pedro Lin [facility] TYPE AND SCREEN, 2020-02-22 04:02:00 Kurt Lin [facility] CBC W/PLT COUNT & AUTO 2020-02-22 04:02:[address] [facility] FL HOBBER IN OR 30 2020-02-22 00:03:00 Freddie Ayoub [facility] SURGICALLY OBTAINED 2020-02-21 23:39:28 Freddie Ayoub [facility] - CULTURE + GRAM STAIN Medical Emir ter SURGICALLY OBTAINED 2020-02-21 23:29:32 Freddie Ayoub [facility] - CULTURE + GRAM STAIN Medical Emir ter SURGICALLY OBTAINED 2020-02-21 23:27:51 Freddie Ayoub [facility] - CULTURE + GRAM STAIN Medical Emir ter CYSTOSCOPY,INSERTION 2020-02-21 20:00:00 Freddie Ayoub [facility] URETERAL STENTS [facility] BLOOD CULTURE 2020-02-21 19:42:00 Arnulfo Iraheta In [facility] COMPREHENSIVE METABOLIC 2020-02-21 19:37:00 Arnulfo Iraheta In [facility] PT/APTT 2020-02-21 19:37:00 Arnulfo Iraheta In [facility] LACTIC ACID, VENOUS 2020-02-21 19:37:00 Arnulfo Iraheta In [facility] CBC W/PLT COUNT & AUTO 2020-02-21 19:37:00 Arnulfo Iraheta In [facility] S t [facility] DIFFERENTIAL [facility] BLOOD CULTURE 2020-02-21 19:36:00 Arnulfo Iraheta In [facility] URINE CULTURE 2020-02-21 19:25:00 Arnulfo Iraheta In [facility] URINALYSIS W/ REFLEX 2020-02-21 19:25:00 Arnulfo Iraheta In [facility] URINE CULTURE [facility] SCREEN, URINE 2020-02-21 19:25:00 Kurt Lin [facility] SARS-COV2/RT-PCR ([facility] & 2020-02-21 18:55:00 Kishor Lin [facility] - REF LABS) [facility] Plan of Care Planned Activity Planned Date Details Comments Source Future Scheduled 2020-03-15 INFLUENZA VACCINE [facility] - Test 00:00:00 (#1) [code = [facility] INFLUENZA VACCINE (#1)] Future Scheduled 2002 Screening for [facility] St Olivares es - Test 00:00:00 malignant neoplasm Medical C enter of cervix (procedure) [code = 379985576] Encounters Start End Encounter Admission Attending Care Care Encounter Source Date/Time Date/Time Type Type Clinicians Facility Department ID 2019-05-07 2019-05-07 Outpatient C NEMO [facility] [id number] [facility] 12:04:00 23:59:00 JAMEY [facility] 2019-03-21 2019-03-21 Emergency [place], [facility] [id number] 06:46:08 09:09:00 Wily Mar [id number] [place] [id number] [place] [id number] Results Test Description Test Time Test Comments Results Result Comments Source SARS-CoV2/RT-PCR (Asymptomatic ONLY) 2020-03-29 16:15:00 Test Item Value Reference Range Interpretation Comme nts SARS-COV2/RT-PCR (test code = Negative Not Detected, 92813-2) Negative, See external report for linked test SARS-COV-[address] [facility] (test code = 37976-5) ELADIA (test code = ELADIA) Negative result for this test determines that SARS-CoV-2 RNA was not present in the specimen above the Limit of Detection (LOD). However, Negative results do not preclude SARS-CoV-2 infection and should not be used as the sole basis for treatment or patient management decisions. Negative results must be combined with clinical observations, patient history, and epidemiological information. A false negative result may occur if a specimen is improperly collected, transported or handled. A false negative result should be considered if patient's recent exposures or clinical presentation indicate that COVID-19 (SARS-CoV-2) is likely and diagnostic tests for other causes of illness are negative. Re-testing should be considered in cases of suspected [...] Food and Drug Administration (FDA) cleared or approved. This is a modified version of an approved [...] of the Act. Fact Sheet for Healthcare Providers:https://www.[employer]. com/sites/default/files/produ ct/documents/Fact_Sheet_HC_Pr ljxogrk_Yoel_CHQZ-WaB-4.pdf Fact Sheet for Healthcare Patients:https://www.[employer].c om/sites/default/files/produc t/documents/Fact_Sheet_Patisurya jg_Ivve_ERUV-WxW-4.pdf Performing Laboratory:[facility], [place] [address] [place], [place] [address]ARS-COV2/RT-PCR ([facility] & REF LABS)2020-03-29 16:15:00 Test Item Value Reference Range Interpretation Comments SARS-COV2/RT-PCR (test Negative Not Detected, Negative, code = 7078616) See external report for linked test SARS-COV-[address] [facility] (test code = 3437588) Negative result for this test determines that SARS-CoV-2 RNA was not present in the specimen above the Limit of Detection (LOD). However, Negative results do not preclude SARS-CoV-2 infection and should not be used as the sole basis for treatment or patient management decisions. Negative results mustbe combined with clinical observations, patient history, and epidemiological information. A false negative result may occur if a specimen is improperly collected, transported or handled. A false negative result should be considered if patient's recent exposures or clinical presentation indicate that COVID-19 (SARS-CoV-2) is likely and diagnostic tests for other causes of illness are negative. Re-testing should be considered in cases of suspected false negatives.The limit of detection for this assay is 800 copies/mL.This SARS CoV-2 test is a real-time RT-PCR test intended for the qualitative detection of nucleic acid from SARS-CoV-2 in a nasopharyngeal swab specimen collected from individuals susp ected of COVID-19 by their healthcare provider.This test has not been Food and Drug Administration (FDA) cleared or approved. This is a modified version of an approved [...] 564(g) of the Act.Fact Sheet for Healthcare Providers:https://www.[employer]/sites/default/files/product/documents/Fact_Shee k_UH_Frawpltxc_Ixbb_QQRS-TyJ-4.pdfFact Sheet for Healthcare Patients:https://www.[employer].com/sites/default/files/product/ documents/Xtru_Lxmbw_Hwaliyif_Etfg_BSWU-FkB-2.pdfPerforming Laboratory:[facility], [place] [address]IHTLL ANALYSIS 2020-03-24 19:15:00 Test Item Value Reference Range Interpretation Comments SPECIMEN LEFT KIDNEY STONE SOURCE(QUEST) (test code = 5272883) COMPONENT 1 See Below Calcium Oxalate (QUEST) (test Dihydrate code = 1402693) (Weddellite) 80% Carbonate Apati te (Dahllite) 10% Uric Acid 10% Thi s test was developed a nd its analytical performance characteristics have been determined by [employer]. It has not been cl eared or approved by theA. This as say has been valida anshu pursuant to the CLIA regulations and is used for clinic al purposes. COMPONENT 2 DNR (QUEST) (test code = 2498) Stone Weight 0.007 g (test code = 2654) ELADIA (test code = Performing Lab ELADIA) *NELLY [facility], [address] [place] [phone] Sandy Guzman MD, PhD [facility] Metabolic [id number] 08:54:00 Test Item Value Reference Range Interpretation Comments Sodium (test code = 136 meq/L 704-464 5231-2) Potassium (test code = 4.3 meq/L 3.5-5.1 2823-3) Chloride (test code = 106 meq/L 98-107 2075-0) CO2 (test code = 22 meq/L 22-29 2028-9) BUN (test code = 22 mg/dL 7-21 H 3094-0) Creatinine (test code 0.93 mg/dL 0.57-1.25 = 2160-0) Glucose (test code = 70 mg/dL 70-105 2345-7) Calcium (test code = 9.6 mg/dL 8.4-10.2 18817-4) EGFR (test code = 82 mL/min/1.73 [place] [address]-8) NOT ACCURATE CREATININE CLEARANCE IN PREDICTING GLOMERULAR FILTRATION RATE . ESTIMATED GFR I S NOT APPLICABLE FOR DIALYSIS PATIENTS. ELADIA (test code = ELADIA) Washer Engineer Helper ID - JAYY C Lab Interpretation Abnormal (test code = 83219-7) [facility] METABOLIC [id number] 08:54:00 Test Item Value Reference Range Interpretation Comments SODIUM (BEAKER) 136 meq/L 136-145 (test code = 381) POTASSIUM (BEAKER) 4.3 meq/L 3.5-5.1 (test code = 379) CHLORIDE (BEAKER) 106 meq/L 98-107 (test code = 382) CO2 (BEAKER) (test 22 meq/L 22-29 code = 355) BLOOD UREA NITROGEN 22 mg/dL 7-21 H (BEAKER) (test code = 354) CREATININE (BEAKER) 0.93 mg/dL 0.57-1.25 (test code = 358) GLUCOSE RANDOM 70 mg/dL 70-105 (BEAKER) (test code = 652) CALCIUM (BEAKER) 9.6 mg/dL 8.4-10.2 (test code = 697) EGFR (BEAKER) (test 82 mL/min/1.73 ESTIMA ANSHU GFR IS code = 1092) sq m NOT ACCURATE CREATININE CLEARANCE IN PREDICTING GLOMERULAR FILTRATION RATE . ESTIMATED GFR I S NOT APPLICABLE FOR DIALYSIS PATIEN TS. Washer Engineer Helper ID - JAYY CCBC with platelet count + automated [id number] 04:04:00 Test Item Value Reference Range Interpretation Comments WBC (test code = 6690-2) 3.9 3.5- 10.5 K/L RBC (test code = 789-8) 3.56 3.93- 5.22 M/L L MCHC (test code = 786-4) 30.1 32.2- 35.5 GM/DL L Hematocrit (test code = 4544-3) 27.6 % 34.1-44.9 L MCV (test code = 787-2) 77.5 fL 79.4-94.8 L MCH (test code = 785-6) 23.3 pg 25.6-32.2 L RDW (test code = 788-0) 15.8 % 11.7-14.4 H Platelets (test code = 777-3) 289 150- 450 K/CU MM MPV (test code = 86636-4) 9.6 fL 9.4-12.3 nRBC (test code = 413) 0 0- 0 /100 WBC % Neutros (test code = 429) 59 % % Lymphs (test code = 430) 22 % % Monos (test code = 431) 14 % % Eos (test code = 432) 4 % % Baso (test code = 437) 1 % # Neutros (test code = 670) 2.26 1.56- 6.13 K/L # Lymphs (test code = 414) 0.83 1.18- 3.74 K/L L # Monos (test code = 415) 0.54 0.24- 0.36 K/L H # Eos (test code = 416) 0.17 0.04- 0.36 K/L # Baso (test code = 417) 0.02 0.01- 0.08 K/L Immature Granulocytes-Relative 1 % 0-1 (test code = 2801) Lab Interpretation (test code = Abnormal 14349-9) [facility] W/PLT COUNT & AUTO [id number] 04:04:00 Test Item Value Reference Range Interpretation Comments WHITE BLOOD CELL COUNT (BEAKER) 3.9 K/ L 3.5-10.5 (test code = 775) RED BLOOD CELL COUNT (BEAKER) 3.56 M/ L 3.93-5.22 L (test code = 761) HEMOGLOBIN (BEAKER) (test code = 8.3 GM/DL 11.2-15.7 L 410) HEMATOCRIT (BEAKER) (test code = 27.6 % 34.1-44.9 L 411) MEAN CORPUSCULAR VOLUME (BEAKER) 77.5 fL 79.4-94.8 L (test code = 753) MEAN CORPUSCULAR HEMOGLOBIN 23.3 pg 25.6-32.2 L (BEAKER) (test code = 751) MEAN CORPUSCULAR HEMOGLOBIN CONC 30.1 GM/DL 32.2-35.5 L (BEAKER) (test code = 752) RED CELL DISTRIBUTION WIDTH 15.8 % 11.7-14.4 H (BEAKER) (test code = 412) PLATELET COUNT (BEAKER) (test 289 K/CU MM 150-450 code = 756) MEAN PLATELET VOLUME (BEAKER) 9.6 fL 9.4-12.3 (test code = 754) NUCLEATED RED BLOOD CELLS 0 /100 WBC 0-0 (BEAKER) (test code = 413) NEUTROPHILS RELATIVE PERCENT 59 % (BEAKER) (test code = 429) LYMPHOCYTES RELATIVE PERCENT 22 % (BEAKER) (test code = 430) MONOCYTES RELATIVE PERCENT 14 % (BEAKER) (test code = 431) EOSINOPHILS RELATIVE PERCENT 4 % (BEAKER) (test code = 432) BASOPHILS RELATIVE PERCENT 1 % (BEAKER) (test code = 437) NEUTROPHILS ABSOLUTE COUNT 2.26 K/ L 1.56-6.13 (BEAKER) (test code = 670) LYMPHOCYTES ABSOLUTE COUNT 0.83 K/ L 1.18-3.74 L (BEAKER) (test code = 414) MONOCYTES ABSOLUTE COUNT (BEAKER) 0.54 K/ L 0.24-0.36 H (test code = 415) EOSINOPHILS ABSOLUTE COUNT 0.17 K/ L 0.04-0.36 (BEAKER) (test code = 416) BASOPHILS ABSOLUTE COUNT (BEAKER) 0.02 K/ L 0.01-0.08 (test code = 417) IMMATURE GRANULOCYTES-RELATIVE 1 % 0-1 PERCENT (BEAKER) (test code = 2801) BASIC METABOLIC [id number] 07:29:00 Test Item Value Reference Range Interpretation Comments SODIUM (BEAKER) 135 meq/L 136-145 L (test code = 381) POTASSIUM (BEAKER) 4.3 meq/L 3.5-5.1 (test code = 379) CHLORIDE (BEAKER) 106 meq/L 98-107 (test code = 382) CO2 (BEAKER) (test 23 meq/L 22-29 code = 355) BLOOD UREA NITROGEN 27 mg/dL 7-21 H (BEAKER) (test code = 354) CREATININE (BEAKER) 0.88 mg/dL 0.57-1.25 (test code = 358) GLUCOSE RANDOM 79 mg/dL 70-105 (BEAKER) (test code = 652) CALCIUM (BEAKER) 9.7 mg/dL 8.4-10.2 (test code = 697) EGFR (BEAKER) (test 87 mL/min/1.73 ESTIMA ANSHU GFR IS code = 1092) sq m NOT ACCURATE CREATININE CLEARANCE IN PREDICTING GLOMERULAR FILTRATION RATE . ESTIMATED GFR I S NOT APPLICABLE FOR DIALYSIS PATIEN TS. Washer Engineer Helper ID - TRISH MCBC W/PLT COUNT & AUTO [id number] 04:59:00 Test Item Value Reference Range Interpretation Comments WHITE BLOOD CELL COUNT (BEAKER) 4.7 K/ L 3.5-10.5 (test code = 775) RED BLOOD CELL COUNT (BEAKER) 3.50 M/ L 3.93-5.22 L (test code = 761) HEMOGLOBIN (BEAKER) (test code = 8.1 GM/DL 11.2-15.7 L 410) HEMATOCRIT (BEAKER) (test code = 27.2 % 34.1-44.9 L 411) MEAN CORPUSCULAR VOLUME (BEAKER) 77.7 fL 79.4-94.8 L (test code = 753) MEAN CORPUSCULAR HEMOGLOBIN 23.1 pg 25.6-32.2 L (BEAKER) (test code = 751) MEAN CORPUSCULAR HEMOGLOBIN CONC 29.8 GM/DL 32.2-35.5 L (BEAKER) (test code = 752) RED CELL DISTRIBUTION WIDTH 16.0 % 11.7-14.4 H (BEAKER) (test code = 412) PLATELET COUNT (BEAKER) (test 321 K/CU MM 150-450 code = 756) MEAN PLATELET VOLUME (BEAKER) 10.0 fL 9.4-12.3 (test code = 754) NUCLEATED RED BLOOD CELLS 0 /100 WBC 0-0 (BEAKER) (test code = 413) NEUTROPHILS RELATIVE PERCENT 66 % (BEAKER) (test code = 429) LYMPHOCYTES RELATIVE PERCENT 17 % (BEAKER) (test code = 430) MONOCYTES RELATIVE PERCENT 12 % (BEAKER) (test code = 431) EOSINOPHILS RELATIVE PERCENT 5 % (BEAKER) (test code = 432) BASOPHILS RELATIVE PERCENT 0 % (BEAKER) (test code = 437) NEUTROPHILS ABSOLUTE COUNT 3.05 K/ L 1.56-6.13 (BEAKER) (test code = 670) LYMPHOCYTES ABSOLUTE COUNT 0.77 K/ L 1.18-3.74 L (BEAKER) (test code = 414) MONOCYTES ABSOLUTE COUNT (BEAKER) 0.55 K/ L 0.24-0.36 H (test code = 415) EOSINOPHILS ABSOLUTE COUNT 0.22 K/ L 0.04-0.36 (BEAKER) (test code = 416) BASOPHILS ABSOLUTE COUNT (BEAKER) 0.02 K/ L 0.01-0.08 (test code = 417) IMMATURE GRANULOCYTES-RELATIVE 1 % 0-1 PERCENT (BEAKER) (test code = 2801) FL, FLUORO, NON-SPECIFIC, UP TO 1 [id number] 14:37:00Reason for exam:->CystoscopyFluoroscopic unit utilized for a procedure performed in the OR. No interpretation was requested. Refer to the operative report for findings. Refer to PACS for patient radiation dose information.FL fluoro non- specific up to 1 [id number] 14:37:00Interface, External Ris In - 03/20/2020 2:55 PM CDTFluoroscopic unit utilized for a procedure performed in the OR. No interpretation was requested. Refer to the operative report for findings. Referto PACS for patient radiation dose information.[facility] [id number] 09:00:00 Test Item Value Reference Range Interpretation Comments CULTURE (BEAKER) (test A >100, 000 col/mL Blanca code = 1095) glabrataThis is an appended report . These organism result s have been appended to a p reviously final verified report. 50-59,000 col/mL skin floraBASIC METABOLIC [id number] 08:31:00 Test Item Value Reference Range Interpretation Comments SODIUM (BEAKER) 134 meq/L 136-145 L (test code = 381) POTASSIUM (BEAKER) 5.0 meq/L 3.5-5.1 Specimen slightly (test code = 379) hemolyzed CHLORIDE (BEAKER) 103 meq/L 98-107 (test code = 382) CO2 (BEAKER) (test 23 meq/L 22-29 code = 355) BLOOD UREA NITROGEN 36 mg/dL 7-21 H (BEAKER) (test code = 354) CREATININE (BEAKER) 1.04 mg/dL 0.57-1.25 Specimen slightly (test code = 358) hemolyzed GLUCOSE RANDOM 77 mg/dL 70-105 (BEAKER) (test code = 652) CALCIUM (BEAKER) 10.5 mg/dL 8.4-10.2 H (test code = 697) EGFR (BEAKER) (test 72 mL/min/1.73 ESTIMA ANSHU GFR IS code = 1092) sq m NOT ACCURATE CREATININE CLEARANCE IN PREDICTING GLOMERULAR FILTRATION RATE . ESTIMATED GFR I S NOT APPLICABLE FOR DIALYSIS PATIEN TS. Washer Engineer Helper ID - AMANDA FCBC W/PLT COUNT & AUTO [id number] 05:44:00 Test Item Value Reference Range Interpretation Comments WHITE BLOOD CELL COUNT (BEAKER) 4.5 K/ L 3.5-10.5 (test code = 775) RED BLOOD CELL COUNT (BEAKER) 4.15 M/ L 3.93-5.22 (test code = 761) HEMOGLOBIN (BEAKER) (test code = 9.3 GM/DL 11.2-15.7 L 410) HEMATOCRIT (BEAKER) (test code = 31.7 % 34.1-44.9 L 411) MEAN CORPUSCULAR VOLUME (BEAKER) 76.4 fL 79.4-94.8 L (test code = 753) MEAN CORPUSCULAR HEMOGLOBIN 22.4 pg 25.6-32.2 L (BEAKER) (test code = 751) MEAN CORPUSCULAR HEMOGLOBIN CONC 29.3 GM/DL 32.2-35.5 L (BEAKER) (test code = 752) RED CELL DISTRIBUTION WIDTH 15.9 % 11.7-14.4 H (BEAKER) (test code = 412) PLATELET COUNT (BEAKER) (test 419 K/CU MM 150-450 code = 756) MEAN PLATELET VOLUME (BEAKER) 10.1 fL 9.4-12.3 (test code = 754) NUCLEATED RED BLOOD CELLS 0 /100 WBC 0-0 (BEAKER) (test code = 413) NEUTROPHILS RELATIVE PERCENT 56 % (BEAKER) (test code = 429) LYMPHOCYTES RELATIVE PERCENT 22 % (BEAKER) (test code = 430) MONOCYTES RELATIVE PERCENT 14 % (BEAKER) (test code = 431) EOSINOPHILS RELATIVE PERCENT 6 % (BEAKER) (test code = 432) BASOPHILS RELATIVE PERCENT 1 % (BEAKER) (test code = 437) NEUTROPHILS ABSOLUTE COUNT 2.51 K/ L 1.56-6.13 (BEAKER) (test code = 670) LYMPHOCYTES ABSOLUTE COUNT 0.99 K/ L 1.18-3.74 L (BEAKER) (test code = 414) MONOCYTES ABSOLUTE COUNT (BEAKER) 0.60 K/ L 0.24-0.36 H (test code = 415) EOSINOPHILS ABSOLUTE COUNT 0.26 K/ L 0.04-0.36 (BEAKER) (test code = 416) BASOPHILS ABSOLUTE COUNT (BEAKER) 0.03 K/ L 0.01-0.08 (test code = 417) IMMATURE GRANULOCYTES-RELATIVE 2 % 0-1 H PERCENT (BEAKER) (test code = 2801) SARS-COV2/RT-PCR ([facility])2020-03-19 17:29:00 Test Item Value Reference Range Interpretation Comments SARS-COV2/RT-PCR (test code Negative Not Detected, Negative, = 6610082) See external report for linked test SARS-COV-[address] [facility] (test code = 5579645) Negative results do not preclude SARS-CoV-2 infection [...] of the Act.Fact Sheet for Healthcare Pro viders:https://www.[employer]/Documents/Xpert%20Xpress%20SARS%20CoV-2/Fact%20Sh eets/846-0402%44FUCA-CCI-5%20HEALTHCARE%20PROVIDERS%20FACT%20SHEET.pdfFact Sheet for Healthcare Patients:https://www.[employer]/Documents/Xpert%20Xpress%20SARS%20CoV-2/Fact%20Sheets/3023801%20SARS-COV -2%20PATIENT%20FACT%20SHEET.pdfPerforming Laboratory:[facility], [place] [address]gAJ, quantitative, [id number] 01:48:00 Test Item Value Reference Range Interpretation Comments hCG Quant (test code = 2 0- 10 mIU/mL 16762-1) ELADIA (test code = ELADIA) Non- Females: <10 mIU/mL Females: Gestation Age Reference Range(mIU/mL) 0.2-1 Week 5-50 1-2 Weeks 50-500 2-3 Weeks 100-5,000 3-4 Weeks 500-10,000 4-5 Weeks 1,000-50,000 5-6 Weeks 10,000-100,000 6-8 Weeks 15,000-200,000 2-3 Months 10,000-100,000 Washer Engineer Helper ID - PIAYA L Lab Interpretation (test Normal code = 17671-5) [facility] HospitalHCG, QUANTITATIVE, [id number] 01:48:00 Test Item Value Reference Range Interpretation Comments GONADOTROPIN, CHORIONIC (HCG) QUANT 2 mIU/mL 0-10 (BEAKER) (test code = 649) Non- Females: <10 mIU/mL Females: Gestation Age Reference Range(mIU/mL) 0.2-1 Week 5-50 1-2 Weeks 50-500 2-3 Weeks 100-5,000 3-4Weeks 500-10,000 4-5 Weeks 1,000-50,000 5-6 Weeks 10,000-100,000 6-8 Weeks 15,000-200,000 2-3 Months 10,000-100,000 Washer Engineer Helper ID - PIAYA L Screen, [id number] 07:07:00 Test Item Value Reference Range Interpretation Comments Preg Test, Ur (test code = 2112-1) Negative [facility] HospitalPREGNANCY SCREEN, [id number] 07:07:00 Test Item Value Reference Range Interpretation Comments TEST URINE (BEAKER) (test Negative code = 583) BASIC METABOLIC [id number] 05:05:00 Test Item Value Reference Range Interpretation Comments SODIUM (BEAKER) 135 meq/L 136-145 L (test code = 381) POTASSIUM (BEAKER) 4.7 meq/L 3.5-5.1 (test code = 379) CHLORIDE (BEAKER) 104 meq/L 98-107 (test code = 382) CO2 (BEAKER) (test 24 meq/L 22-29 code = 355) BLOOD UREA NITROGEN 28 mg/dL 7-21 H (BEAKER) (test code = 354) CREATININE (BEAKER) 1.05 mg/dL 0.57-1.25 (test code = 358) GLUCOSE RANDOM 81 mg/dL 70-105 (BEAKER) (test code = 652) CALCIUM (BEAKER) 10.3 mg/dL 8.4-10.2 H (test code = 697) EGFR (BEAKER) (test 71 mL/min/1.73 ESTIMA ANSHU GFR IS code = 1092) sq m NOT ACCURATE CREATININE CLEARANCE IN PREDICTING GLOMERULAR FILTRATION RATE . ESTIMATED GFR I S NOT APPLICABLE FOR DIALYSIS PATIEN TS. Washer Engineer Helper ID - LACBC W/PLT COUNT & AUTO [id number] 04:38:00 Test Item Value Reference Range Interpretation Comments WHITE BLOOD CELL COUNT (BEAKER) 4.0 K/ L 3.5-10.5 (test code = 775) RED BLOOD CELL COUNT (BEAKER) 4.03 M/ L 3.93-5.22 (test code = 761) HEMOGLOBIN (BEAKER) (test code = 9.1 GM/DL 11.2-15.7 L 410) HEMATOCRIT (BEAKER) (test code = 30.5 % 34.1-44.9 L 411) MEAN CORPUSCULAR VOLUME (BEAKER) 75.7 fL 79.4-94.8 L (test code = 753) MEAN CORPUSCULAR HEMOGLOBIN 22.6 pg 25.6-32.2 L (BEAKER) (test code = 751) MEAN CORPUSCULAR HEMOGLOBIN CONC 29.8 GM/DL 32.2-35.5 L (BEAKER) (test code = 752) RED CELL DISTRIBUTION WIDTH 16.4 % 11.7-14.4 H (BEAKER) (test code = 412) PLATELET COUNT (BEAKER) (test 381 K/CU MM 150-450 code = 756) MEAN PLATELET VOLUME (BEAKER) 10.1 fL 9.4-12.3 (test code = 754) NUCLEATED RED BLOOD CELLS 0 /100 WBC 0-0 (BEAKER) (test code = 413) NEUTROPHILS RELATIVE PERCENT 49 % (BEAKER) (test code = 429) LYMPHOCYTES RELATIVE PERCENT 25 % (BEAKER) (test code = 430) MONOCYTES RELATIVE PERCENT 15 % (BEAKER) (test code = 431) EOSINOPHILS RELATIVE PERCENT 6 % (BEAKER) (test code = 432) BASOPHILS RELATIVE PERCENT 1 % (BEAKER) (test code = 437) NEUTROPHILS ABSOLUTE COUNT 1.94 K/ L 1.56-6.13 (BEAKER) (test code = 670) LYMPHOCYTES ABSOLUTE COUNT 1.00 K/ L 1.18-3.74 L (BEAKER) (test code = 414) MONOCYTES ABSOLUTE COUNT (BEAKER) 0.60 K/ L 0.24-0.36 H (test code = 415) EOSINOPHILS ABSOLUTE COUNT 0.25 K/ L 0.04-0.36 (BEAKER) (test code = 416) BASOPHILS ABSOLUTE COUNT (BEAKER) 0.02 K/ L 0.01-0.08 (test code = 417) IMMATURE GRANULOCYTES-RELATIVE 4 % 0-1 H PERCENT (BEAKER) (test code = 2801) BASIC METABOLIC [id number] 04:55:00 Test Item Value Reference Range Interpretation Comments SODIUM (BEAKER) 135 meq/L 136-145 L (test code = 381) POTASSIUM (BEAKER) 4.5 meq/L 3.5-5.1 (test code = 379) CHLORIDE (BEAKER) 105 meq/L 98-107 (test code = 382) CO2 (BEAKER) (test 22 meq/L 22-29 code = 355) BLOOD UREA NITROGEN 29 mg/dL 7-21 H (BEAKER) (test code = 354) CREATININE (BEAKER) 1.05 mg/dL 0.57-1.25 (test code = 358) GLUCOSE RANDOM 78 mg/dL 70-105 (BEAKER) (test code = 652) CALCIUM (BEAKER) 10.2 mg/dL 8.4-10.2 (test code = 697) EGFR (BEAKER) (test 71 mL/min/1.73 ESTIMA ANSHU GFR IS code = 1092) sq m NOT ACCURATE CREATININE CLEARANCE IN PREDICTING GLOMERULAR FILTRATION RATE . ESTIMATED GFR I S NOT APPLICABLE FOR DIALYSIS PATIEN TS. Washer Engineer Helper ID - EDASICBC W/PLT COUNT & AUTO [id number] 04:31:00 Test Item Value Reference Range Interpretation Comments WHITE BLOOD CELL COUNT (BEAKER) 3.8 K/ L 3.5-10.5 (test code = 775) RED BLOOD CELL COUNT (BEAKER) 3.90 M/ L 3.93-5.22 L (test code = 761) HEMOGLOBIN (BEAKER) (test code = 9.1 GM/DL 11.2-15.7 L 410) HEMATOCRIT (BEAKER) (test code = 29.9 % 34.1-44.9 L 411) MEAN CORPUSCULAR VOLUME (BEAKER) 76.7 fL 79.4-94.8 L (test code = 753) MEAN CORPUSCULAR HEMOGLOBIN 23.3 pg 25.6-32.2 L (BEAKER) (test code = 751) MEAN CORPUSCULAR HEMOGLOBIN CONC 30.4 GM/DL 32.2-35.5 L (BEAKER) (test code = 752) RED CELL DISTRIBUTION WIDTH 16.7 % 11.7-14.4 H (BEAKER) (test code = 412) PLATELET COUNT (BEAKER) (test 338 K/CU MM 150-450 code = 756) MEAN PLATELET VOLUME (BEAKER) 9.6 fL 9.4-12.3 (test code = 754) NUCLEATED RED BLOOD CELLS 0 /100 WBC 0-0 (BEAKER) (test code = 413) NEUTROPHILS RELATIVE PERCENT 53 % (BEAKER) (test code = 429) LYMPHOCYTES RELATIVE PERCENT 22 % (BEAKER) (test code = 430) MONOCYTES RELATIVE PERCENT 13 % (BEAKER) (test code = 431) EOSINOPHILS RELATIVE PERCENT 8 % (BEAKER) (test code = 432) BASOPHILS RELATIVE PERCENT 1 % (BEAKER) (test code = 437) NEUTROPHILS ABSOLUTE COUNT 2.01 K/ L 1.56-6.13 (BEAKER) (test code = 670) LYMPHOCYTES ABSOLUTE COUNT 0.82 K/ L 1.18-3.74 L (BEAKER) (test code = 414) MONOCYTES ABSOLUTE COUNT (BEAKER) 0.51 K/ L 0.24-0.36 H (test code = 415) EOSINOPHILS ABSOLUTE COUNT 0.29 K/ L 0.04-0.36 (BEAKER) (test code = 416) BASOPHILS ABSOLUTE COUNT (BEAKER) 0.02 K/ L 0.01-0.08 (test code = 417) IMMATURE GRANULOCYTES-RELATIVE 5 % 0-1 H PERCENT (BEAKER) (test code = 2801) Blood Culture - Routine (Left Venipuncture)2020-03-16 02:00:00 Test Item Value Reference Range Interpretation Comments Result (test code = No growth in 5 days 6463-4) [facility] HospitalBLOOD [id number] 02:00:00 Test Item Value Reference Range Interpretation Comments CULTURE (BEAKER) (test No growth in 5 days code = 1095) BLOOD [id number] 02:00:00 Test Item Value Reference Range Interpretation Comments CULTURE (BEAKER) (test No growth in 5 days code = 1095) SARS-COV2/RT-PCR ([facility])2020-03-15 10:57:00 Test Item Value Reference Range Interpretation Comments SARS-COV2/RT-PCR (test Negative Not Detected, Negative, code = 2609523) See external report for linked test SARS-COV-2 PERFORMING LAB [facility] (test code = 5183118) Negative result for this test determines that SARS-CoV-2 RNA was not present in the specimen above the Limit of Detection (LOD). However, Negative results do not preclude SARS-CoV-2 infection and should not be used as the sole basis for treatment or patient management decisions. Negative results mustbe combined with clinical observations, patient history, and epidemiological information. A false negative result may occur if a specimen is improperly collected, transported or handled. A false negative result should be considered if patient's recent exposures or clinical presentation indicate that COVID-19 (SARS-CoV-2) is likely and diagnostic tests for other causes of illness are negative. Re-testing should be considered in cases of suspected false negatives.The limit of detection for this assay is 800 copies/mL.This SARS CoV-2 test is a real-time RT-PCR test intended for the qualitative detection of nucleic acid from SARS-CoV-2 in a nasopharyngeal swab specimen collected from individuals susp ected of COVID-19 by their healthcare provider.This test has not been Food and Drug Administration (FDA) cleared or approved. This is a modified version of an approved [...] 564(g) of the Act.Fact Sheet for Healthcare Providers:https://www.[employer]/sites/default/files/product/documents/Fact_Shee u_XS_Ncpwbizve_Wltq_GLRP-IzL-0.pdfFact Sheet for Healthcare Patients:https://www.[employer]/sites/default/files/product/ documents/Htmg_Vqzzn_Edpwlopq_Isuz_CMXX-EcT-0.pdfPerforming Laboratory:[address] [address]LVL W/PLT COUNT & AUTO [id number] 06:59:00 Test Item Value Reference Range Interpretation Comments WHITE BLOOD CELL COUNT (BEAKER) 4.0 K/ L 3.5-10.5 (test code = 775) RED BLOOD CELL COUNT (BEAKER) 3.89 M/ L 3.93-5.22 L (test code = 761) HEMOGLOBIN (BEAKER) (test code = 8.9 GM/DL 11.2-15.7 L 410) HEMATOCRIT (BEAKER) (test code = 30.3 % 34.1-44.9 L 411) MEAN CORPUSCULAR VOLUME (BEAKER) 77.9 fL 79.4-94.8 L (test code = 753) MEAN CORPUSCULAR HEMOGLOBIN 22.9 pg 25.6-32.2 L (BEAKER) (test code = 751) MEAN CORPUSCULAR HEMOGLOBIN CONC 29.4 GM/DL 32.2-35.5 L (BEAKER) (test code = 752) RED CELL DISTRIBUTION WIDTH 17.1 % 11.7-14.4 H (BEAKER) (test code = 412) PLATELET COUNT (BEAKER) (test 347 K/CU MM 150-450 code = 756) MEAN PLATELET VOLUME (BEAKER) 10.1 fL 9.4-12.3 (test code = 754) NUCLEATED RED BLOOD CELLS 0 /100 WBC 0-0 (BEAKER) (test code = 413) NEUTROPHILS RELATIVE PERCENT 59 % (BEAKER) (test code = 429) LYMPHOCYTES RELATIVE PERCENT 19 % (BEAKER) (test code = 430) MONOCYTES RELATIVE PERCENT 10 % (BEAKER) (test code = 431) EOSINOPHILS RELATIVE PERCENT 8 % (BEAKER) (test code = 432) BASOPHILS RELATIVE PERCENT 1 % (BEAKER) (test code = 437) NEUTROPHILS ABSOLUTE COUNT 2.37 K/ L 1.56-6.13 (BEAKER) (test code = 670) LYMPHOCYTES ABSOLUTE COUNT 0.76 K/ L 1.18-3.74 L (BEAKER) (test code = 414) MONOCYTES ABSOLUTE COUNT (BEAKER) 0.41 K/ L 0.24-0.36 H (test code = 415) EOSINOPHILS ABSOLUTE COUNT 0.33 K/ L 0.04-0.36 (BEAKER) (test code = 416) BASOPHILS ABSOLUTE COUNT (BEAKER) 0.03 K/ L 0.01-0.08 (test code = 417) IMMATURE GRANULOCYTES-RELATIVE 3 % 0-1 H PERCENT (BEAKER) (test code = 2801) BASIC METABOLIC [id number] 06:36:00 Test Item Value Reference Range Interpretation Comments SODIUM (BEAKER) 134 meq/L 136-145 L (test code = 381) POTASSIUM (BEAKER) 4.2 meq/L 3.5-5.1 (test code = 379) CHLORIDE (BEAKER) 103 meq/L 98-107 (test code = 382) CO2 (BEAKER) (test 22 meq/L 22-29 code = 355) BLOOD UREA NITROGEN 27 mg/dL 7-21 H (BEAKER) (test code = 354) CREATININE (BEAKER) 1.12 mg/dL 0.57-1.25 (test code = 358) GLUCOSE RANDOM 78 mg/dL 70-105 (BEAKER) (test code = 652) CALCIUM (BEAKER) 10.1 mg/dL 8.4-10.2 (test code = 697) EGFR (BEAKER) (test 66 mL/min/1.73 ESTIMA ANSHU GFR IS code = 1092) sq m NOT ACCURATE CREATININE CLEARANCE IN PREDICTING GLOMERULAR FILTRATION RATE . ESTIMATED GFR I S NOT APPLICABLE FOR DIALYSIS PATIEN TS. Washer Engineer Helper ID - DBPT/[id number] 06:28:00 Test Item Value Reference Range Interpretation Comments Protime (test code = 14.1 11.9- 14.2 5902-2) seconds INR (test code = 1.13 <=5.90 6301-6) PTT (test code = 39.4 22.5- 36.0 H 43000-8) seconds ELADIA (test code = ELADIA) Effective 12/10/2018: PT Reference Range ChangeNew: 11.9-14.2 Previous: 11.7-14.7 RECOMMENDED COUMADIN/WARFARIN INR THERAPY RANGESSTANDARD DOSE: 2.0-3.0 Includes: PROPHYLAXIS for venous thrombosis, systemic embolization; TREATMENT for venous thrombosis and/or pulmonary embolus.HIGH RISK: Target INR is 2.5-3.5 for patients wiht mechanical heart valves. Lab Interpretation Abnormal (test code = 62529-9) [facility] HospitalPT/[id number] 06:28:00 Test Item Value Reference Range Interpretation Comments PROTIME (BEAKER) (test code = 14.1 seconds 11.9-14.2 759) INR (BEAKER) (test code = 370) 1.13 <=5.90 PARTIAL THROMBOPLASTIN TIME 39.4 seconds 22.5-36.0 H (BEAKER) (test code = 760) Effective 12/10/2018: PT Reference Range ChangeNew: 11.9-14.2 Previous: 11.7- 14.7RECOMMENDED COUMADIN/WARFARIN INR THERAPY RANGESSTANDARD DOSE: 2.0-3.0 Includes: PROPHYLAXIS for venous thrombosis, systemic embolization; TREATMENT for venous thrombosis and/or pulmonary embolus.HIGH RISK: Target INR is2.5-3.5 for patients wiht mechanical heart valves. SCREEN, [id number] 16:39:00 Test Item Value Reference Range Interpretation Comments TEST URINE (BEAKER) (test Negative code = 583) BASIC METABOLIC [id number] 07:32:00 Test Item Value Reference Range Interpretation Comments SODIUM (BEAKER) 135 meq/L 136-145 L (test code = 381) POTASSIUM (BEAKER) 4.5 meq/L 3.5-5.1 (test code = 379) CHLORIDE (BEAKER) 108 meq/L 98-107 H (test code = 382) CO2 (BEAKER) (test 20 meq/L 22-29 L code = 355) BLOOD UREA NITROGEN 25 mg/dL 7-21 H (BEAKER) (test code = 354) CREATININE (BEAKER) 1.03 mg/dL 0.57-1.25 (test code = 358) GLUCOSE RANDOM 70 mg/dL 70-105 (BEAKER) (test code = 652) CALCIUM (BEAKER) 9.7 mg/dL 8.4-10.2 (test code = 697) EGFR (BEAKER) (test 73 mL/min/1.73 ESTIMA ANSHU GFR IS code = 1092) sq m NOT ACCURATE CREATININE CLEARANCE IN PREDICTING GLOMERULAR FILTRATION RATE . ESTIMATED GFR I S NOT APPLICABLE FOR DIALYSIS PATIEN TS. Washer Engineer Helper ID - PIAYA LCBC W/PLT COUNT & AUTO [id number] 06:42:00 Test Item Value Reference Range Interpretation Comments WHITE BLOOD CELL COUNT (BEAKER) 3.7 K/ L 3.5-10.5 (test code = 775) RED BLOOD CELL COUNT (BEAKER) 3.51 M/ L 3.93-5.22 L (test code = 761) HEMOGLOBIN (BEAKER) (test code = 8.1 GM/DL 11.2-15.7 L 410) HEMATOCRIT (BEAKER) (test code = 27.7 % 34.1-44.9 L 411) MEAN CORPUSCULAR VOLUME (BEAKER) 78.9 fL 79.4-94.8 L (test code = 753) MEAN CORPUSCULAR HEMOGLOBIN 23.1 pg 25.6-32.2 L (BEAKER) (test code = 751) MEAN CORPUSCULAR HEMOGLOBIN CONC 29.2 GM/DL 32.2-35.5 L (BEAKER) (test code = 752) RED CELL DISTRIBUTION WIDTH 17.3 % 11.7-14.4 H (BEAKER) (test code = 412) PLATELET COUNT (BEAKER) (test 320 K/CU MM 150-450 code = 756) MEAN PLATELET VOLUME (BEAKER) 11.0 fL 9.4-12.3 (test code = 754) NUCLEATED RED BLOOD CELLS 0 /100 WBC 0-0 (BEAKER) (test code = 413) NEUTROPHILS RELATIVE PERCENT 58 % (BEAKER) (test code = 429) LYMPHOCYTES RELATIVE PERCENT 19 % (BEAKER) (test code = 430) MONOCYTES RELATIVE PERCENT 12 % (BEAKER) (test code = 431) EOSINOPHILS RELATIVE PERCENT 7 % (BEAKER) (test code = 432) BASOPHILS RELATIVE PERCENT 1 % (BEAKER) (test code = 437) NEUTROPHILS ABSOLUTE COUNT 2.13 K/ L 1.56-6.13 (BEAKER) (test code = 670) LYMPHOCYTES ABSOLUTE COUNT 0.70 K/ L 1.18-3.74 L (BEAKER) (test code = 414) MONOCYTES ABSOLUTE COUNT (BEAKER) 0.42 K/ L 0.24-0.36 H (test code = 415) EOSINOPHILS ABSOLUTE COUNT 0.25 K/ L 0.04-0.36 (BEAKER) (test code = 416) BASOPHILS ABSOLUTE COUNT (BEAKER) 0.02 K/ L 0.01-0.08 (test code = 417) IMMATURE GRANULOCYTES-RELATIVE 4 % 0-1 H PERCENT (BEAKER) (test code = 2801) BASIC METABOLIC [id number] 04:51:00 Test Item Value Reference Range Interpretation Comments SODIUM (BEAKER) 136 meq/L 136-145 (test code = 381) POTASSIUM (BEAKER) 4.3 meq/L 3.5-5.1 (test code = 379) CHLORIDE (BEAKER) 107 meq/L 98-107 (test code = 382) CO2 (BEAKER) (test 21 meq/L 22-29 L code = 355) BLOOD UREA NITROGEN 28 mg/dL 7-21 H (BEAKER) (test code = 354) CREATININE (BEAKER) 1.09 mg/dL 0.57-1.25 (test code = 358) GLUCOSE RANDOM 83 mg/dL 70-105 (BEAKER) (test code = 652) CALCIUM (BEAKER) 9.7 mg/dL 8.4-10.2 (test code = 697) EGFR (BEAKER) (test 68 mL/min/1.73 ESTIMA ANSHU GFR IS code = 1092) sq m NOT ACCURATE CREATININE CLEARANCE IN PREDICTING GLOMERULAR FILTRATION RATE . ESTIMATED GFR I S NOT APPLICABLE FOR DIALYSIS PATIEN TS. Washer Engineer Helper ID - TRISH [facility] W/PLT COUNT & AUTO [id number] 04:38:00 Test Item Value Reference Range Interpretation Comments WHITE BLOOD CELL COUNT (BEAKER) 3.8 K/ L 3.5-10.5 (test code = 775) RED BLOOD CELL COUNT (BEAKER) 3.37 M/ L 3.93-5.22 L (test code = 761) HEMOGLOBIN (BEAKER) (test code = 7.8 GM/DL 11.2-15.7 L 410) HEMATOCRIT (BEAKER) (test code = 25.9 % 34.1-44.9 L 411) MEAN CORPUSCULAR VOLUME (BEAKER) 76.9 fL 79.4-94.8 L (test code = 753) MEAN CORPUSCULAR HEMOGLOBIN 23.1 pg 25.6-32.2 L (BEAKER) (test code = 751) MEAN CORPUSCULAR HEMOGLOBIN CONC 30.1 GM/DL 32.2-35.5 L (BEAKER) (test code = 752) RED CELL DISTRIBUTION WIDTH 17.2 % 11.7-14.4 H (BEAKER) (test code = 412) PLATELET COUNT (BEAKER) (test 281 K/CU MM 150-450 code = 756) MEAN PLATELET VOLUME (BEAKER) 10.2 fL 9.4-12.3 (test code = 754) NUCLEATED RED BLOOD CELLS 0 /100 WBC 0-0 (BEAKER) (test code = 413) NEUTROPHILS RELATIVE PERCENT 66 % (BEAKER) (test code = 429) LYMPHOCYTES RELATIVE PERCENT 17 % (BEAKER) (test code = 430) MONOCYTES RELATIVE PERCENT 10 % (BEAKER) (test code = 431) EOSINOPHILS RELATIVE PERCENT 5 % (BEAKER) (test code = 432) BASOPHILS RELATIVE PERCENT 0 % (BEAKER) (test code = 437) NEUTROPHILS ABSOLUTE COUNT 2.49 K/ L 1.56-6.13 (BEAKER) (test code = 670) LYMPHOCYTES ABSOLUTE COUNT 0.65 K/ L 1.18-3.74 L (BEAKER) (test code = 414) MONOCYTES ABSOLUTE COUNT (BEAKER) 0.39 K/ L 0.24-0.36 H (test code = 415) EOSINOPHILS ABSOLUTE COUNT 0.17 K/ L 0.04-0.36 (BEAKER) (test code = 416) BASOPHILS ABSOLUTE COUNT (BEAKER) 0.01 K/ L 0.01-0.08 (test code = 417) IMMATURE GRANULOCYTES-RELATIVE 2 % 0-1 H PERCENT (BEAKER) (test code = 2801) Urinalysis w/[id number] 10:11:00 Test Item Value Reference Range Interpretation Comments Color, UA (test code = Yellow 5778-6) Clarity, UA (test code Hazy = 5767-9) Specific Lucas, UA 1.013 1.001-1.035 (test code = 5811-5) pH, UA (test code = 7.0 5.0-8.0 5803-2) Protein, UA (test code 70 mg/dL Negative A = 70129-7) Glucose, UA (test code Negative Negative = 365) Ketones, UA (test code Negative Negative = 2514-8) Bilirubin, UA (test Negative Negative code = 61905-3) Blood, UA (test code = Large Negative A 71918-9) Nitrite, UA (test code Negative Negative = 5802-4) Leukocytes, UA (test Large Negative A code = 5799-2) Urobilinogen, UA (test 0.2 mg/dL 0.2-1 code = 04128-2) RBC, UA (test code = 1139 /HPF 43093-5) WBC, UA (test code = 370 /HPF Moderat e WBC 5821-4) clumps. Mucus (test code = Occasional 8247-9) Squam Epithel, UA 2 /HPF (test code = 37838-1) Specimen Source (test code = 2795) ELADIA (test code = ELADIA) Washer Engineer Helper ID - [auto]Washer Engineer Helper ID - tech Lab Interpretation Abnormal (test code = 33394-9) [facility] [id number] 10:11:00 Test Item Value Reference Range Interpretation Comments COLOR (BEAKER) (test Yellow code = 470) CLARITY (BEAKER) (test Hazy code = 469) SPECIFIC GRAVITY UA 1.013 1.001-1.035 (BEAKER) (test code = 468) PH UA (BEAKER) (test 7.0 5.0-8.0 code = 467) PROTEIN UA (BEAKER) 70 mg/dL Negative A (test code = 464) GLUCOSE UA (BEAKER) Negative Negative (test code = 365) KETONES UA (BEAKER) Negative Negative (test code = 371) BILIRUBIN UA (BEAKER) Negative Negative (test code = 462) BLOOD UA (BEAKER) (test Large Negative A code = 461) NITRITE UA (BEAKER) Negative Negative (test code = 465) LEUKOCYTE ESTERASE UA Large Negative A (BEAKER) (test code = 466) UROBILINOGEN UA (BEAKER) 0.2 mg/dL 0.2-1.0 (test code = 463) RBC UA (BEAKER) (test 1139 /HPF code = 519) WBC UA (BEAKER) (test 370 /HPF Modera te WBC code = 520) clumps. MUCUS (BEAKER) (test Occasional code = 1574) SQUAMOUS EPITHELIAL 2 /HPF (BEAKER) (test code = 516) SOURCE(BEAKER) (test code = 2795) Washer Engineer Helper ID - [auto]Washer Engineer Helper ID - techType and screen, [id number] 06:29:00 Test Item Value Reference Range Interpretation Comments ABO/RH AUTOMATED (BEAKER) (test O POSITIVE code = 2260) Ab Scrn (test code = 890-4) NEGATIVE [facility] [id number] 05:53:00 Test Item Value Reference Range Interpretation Comments SODIUM (BEAKER) 137 meq/L 136-145 (test code = 381) POTASSIUM (BEAKER) 4.3 meq/L 3.5-5.1 (test code = 379) CHLORIDE (BEAKER) 107 meq/L 98-107 (test code = 382) CO2 (BEAKER) (test 22 meq/L 22-29 code = 355) BLOOD UREA NITROGEN 23 mg/dL 7-21 H (BEAKER) (test code = 354) CREATININE (BEAKER) 1.10 mg/dL 0.57-1.25 (test code = 358) GLUCOSE RANDOM 77 mg/dL 70-105 (BEAKER) (test code = 652) CALCIUM (BEAKER) 11.1 mg/dL 8.4-10.2 H (test code = 697) EGFR (BEAKER) (test 67 mL/min/1.73 ESTIMA ANSHU GFR IS code = 1092) sq m NOT ACCURATE CREATININE CLEARANCE IN PREDICTING GLOMERULAR FILTRATION RATE . ESTIMATED GFR I S NOT APPLICABLE FOR DIALYSIS PATIEN TS. Washer Engineer Helper ID - EDASICBC W/PLT COUNT & AUTO [id number] 05:27:00 Test Item Value Reference Range Interpretation Comments WHITE BLOOD CELL COUNT (BEAKER) 4.2 K/ L 3.5-10.5 (test code = 775) RED BLOOD CELL COUNT (BEAKER) 3.60 M/ L 3.93-5.22 L (test code = 761) HEMOGLOBIN (BEAKER) (test code = 8.1 GM/DL 11.2-15.7 L 410) HEMATOCRIT (BEAKER) (test code = 27.7 % 34.1-44.9 L 411) MEAN CORPUSCULAR VOLUME (BEAKER) 76.9 fL 79.4-94.8 L (test code = 753) MEAN CORPUSCULAR HEMOGLOBIN 22.5 pg 25.6-32.2 L (BEAKER) (test code = 751) MEAN CORPUSCULAR HEMOGLOBIN CONC 29.2 GM/DL 32.2-35.5 L (BEAKER) (test code = 752) RED CELL DISTRIBUTION WIDTH 17.4 % 11.7-14.4 H (BEAKER) (test code = 412) PLATELET COUNT (BEAKER) (test 284 K/CU MM 150-450 code = 756) MEAN PLATELET VOLUME (BEAKER) 10.5 fL 9.4-12.3 (test code = 754) NUCLEATED RED BLOOD CELLS 0 /100 WBC 0-0 (BEAKER) (test code = 413) NEUTROPHILS RELATIVE PERCENT 65 % (BEAKER) (test code = 429) LYMPHOCYTES RELATIVE PERCENT 18 % (BEAKER) (test code = 430) MONOCYTES RELATIVE PERCENT 11 % (BEAKER) (test code = 431) EOSINOPHILS RELATIVE PERCENT 5 % (BEAKER) (test code = 432) BASOPHILS RELATIVE PERCENT 0 % (BEAKER) (test code = 437) NEUTROPHILS ABSOLUTE COUNT 2.71 K/ L 1.56-6.13 (BEAKER) (test code = 670) LYMPHOCYTES ABSOLUTE COUNT 0.74 K/ L 1.18-3.74 L (BEAKER) (test code = 414) MONOCYTES ABSOLUTE COUNT (BEAKER) 0.46 K/ L 0.24-0.36 H (test code = 415) EOSINOPHILS ABSOLUTE COUNT 0.19 K/ L 0.04-0.36 (BEAKER) (test code = 416) BASOPHILS ABSOLUTE COUNT (BEAKER) 0.01 K/ L 0.01-0.08 (test code = 417) IMMATURE GRANULOCYTES-RELATIVE 2 % 0-1 H PERCENT (BEAKER) (test code = 2801) Prothrombin time/[id number] 05:23:00 Test Item Value Reference Range Interpretation Comments Protime (test code = 13.9 11.9- 14.2 5902-2) seconds INR (test code = 1.10 <=5.90 6301-6) ELADIA (test code = ELADIA) Effective 12/10/2018: PT Reference Range ChangeNew: 11.9-14.2 Previous: 11.7-14.7 RECOMMENDED COUMADIN/WARFARIN INR THERAPY RANGESSTANDARD DOSE: 2.0-3.0 Includes: PROPHYLAXIS for venous thrombosis, systemic embolization; TREATMENT for venous thrombosis and/or pulmonary embolus.HIGH RISK: Target INR is 2.5-3.5 for patients wiht mechanical heart valves. Lab Interpretation Normal (test code = 34835-9) [facility]/[id number] 05:23:00 Test Item Value Reference Range Interpretation Comments PROTIME (BEAKER) (test code = 13.9 seconds 11.9-14.2 759) INR (BEAKER) (test code = 370) 1.10 <=5.90 Effective 12/10/2018: PT Reference Range ChangeNew: 11.9-14.2 Previous: 11.7- 14.7RECOMMENDED COUMADIN/WARFARIN INR THERAPY RANGESSTANDARD DOSE: 2.0-3.0 Includes: PROPHYLAXIS for venous thrombosis, systemic embolization; TREATMENT for venous thrombosis and/or pulmonary embolus.HIGH RISK: Target INR is2.5-3.5 for patients wiht mechanical heart valves.SARS-COV2/RT-PCR ([facility]) 2020-03-10 23:21:00 Test Item Value Reference Range Interpretation Comments SARS-COV2/RT-PCR (test code Negative Not Detected, Negative, = 9531210) See external report for linked test SARS-COV-[address] [facility] (test code = 5001754) Negative results do not preclude SARS-CoV-2 infection [...] of the Act.Fact Sheet for Healthcare Pro viders:https://www.[employer]/Documents/Xpert%20Xpress%20SARS%20CoV-2/Fact%20Sh eets/302-3802%44VXEM-SEU-2%20HEALTHCARE%20PROVIDERS%20FACT%20SHEET.pdfFact Sheet for Healthcare Patients:https://www.[employer]/Documents/Xpert%20Xpress%20SARS%20CoV-2/Fact%20Sheets/3023801%20SARS-COV -2%20PATIENT%20FACT%20SHEET.pdfPerforming Laboratory:[place] [address], [place] [address]N/S, RENAL, [id number] 22:46:00 Reason for exam:->FEVERFINAL REPORT Ultrasound of the Kidneys Clinical History: Fever and abnormal labs. Comparison: None. Discussion: Sonographic evaluation of the kidneys was performed. Right kidney: 12 x 6.5 x 4.3 cm, with cortical thickness of 1.3 cm. Normal cortical echogenicity. Increased echogenicity within the medullary pyramids. No mass. No shadowing calculus. No hydronephrosis. Left kidney: 11.6 x 5.1 x 6.2 cm, with cortical thickness of 1.2 cm. Normal cortical echogenicity. Increased echogenicity within the medullary pyramids. No mass. No shadowing calculus. No hydronephrosis.Limited doppler evaluation of bilateral main renal arteries and veins demonstrate patency. Bladder:Underdistended and thin-walled. Stent noted within the urinary bladder. Impression:No hydronephrosis.Increased echogenicity within the bilateral medullary pyramids for which medullary nephrocalcinosis cannot be excluded. Signed: Cruzito Nowak MDReport Verified Date/Time: 03/10/2020 22:46:18 US renal [id number] 22:46:00Interface, External Ris In - 03/10/2020 10:48 PM CDTFINAL REPORT Ultrasound of the Kidneys Clinical History: Fever and abnormal labs. Comparison: None. Discussion: Sonographic evaluation of the kidneys was performed. Right kidney: 12 x 6.5 x 4.3 cm, with cortical thickness of1.3 cm. Normal cortical echogenicity. Increased echogenicity within the medullary pyramids. No mass. No shadowing calculus. No hydronephrosis. Left kidney: 11.6 x 5.1 x 6.2 cm, with cortical thickness of 1.2 cm. Normal cortical echogenicity. Increased echogenicity within the medullary pyramids. No mass. No shadowing calculus. No hydronephrosis. Limited doppler evaluation of bilateral main renal arteries and veins demonstrate patency. Bladder: Underdistended and thin-walled. Stent noted within the urinary bladder. Impression:No hydronephrosis.Increased echogenicity within the bilateral medul malik pyramids for which medullary nephrocalcinosis cannot be excluded. Signed: Cruzito Nowak MDReport Verified Date/Time: 03/10/2020 22:46:18 [facility] [id number] 22:36:00 Test Item Value Reference Range Interpretation Comments Protein, Total (test 8.2 6.0- 8.3 gm/dL code = 2885-2) Albumin (test code = 3.5 g/dL 3.5-5 72642-2) Alkaline Phosphatase 835 U/L 40-150 H (test code = 6768-6) Total Bilirubin (test 0.4 mg/dL 0.2-1.2 code = 1975-2) Sodium (test code = 135 meq/L 136-145 L 2951-2) Potassium (test code 4.8 meq/L 3.5-5.1 = 2823-3) Chloride (test code = 106 meq/L 98-107 5-0) CO2 (test code = 19 meq/L 22-29 L 8-9) BUN (test code = 23 mg/dL 7-21 H 3094-0) Creatinine (test code 1.19 mg/dL 0.57-1.25 = 2160-0) Glucose (test code = 89 mg/dL 70-105 2345-7) Calcium (test code = 11.1 mg/dL 8.4-10.2 H 62080-7) AST (test code = 25 U/L 5-34 1920-8) ALT (test code = 27 U/L 6-55 1742-6) EGFR (test code = 62 mL/min/1.73 [place] [address]-6) m NOT ACCURATE CREATININE CLEARANCE IN PREDICTING GLOMERULAR FILTRATION RATE . ESTIMATED GFR I S NOT APPLICABLE FOR DIALYSIS PATIENTS. ELADIA (test code = ELADIA) Washer Engineer Helper ID - NTPSpecimen slightly lipemic Lab Interpretation Abnormal (test code = 48386-4) [facility] [id number] 22:36:00 Test Item Value Reference Range Interpretation Comments TOTAL PROTEIN 8.2 gm/dL 6.0-8.3 (BEAKER) (test code = 770) ALBUMIN (BEAKER) 3.5 g/dL 3.5-5.0 (test code = 1145) ALKALINE PHOSPHATASE 835 U/L 40-150 H (BEAKER) (test code = 346) BILIRUBIN TOTAL 0.4 mg/dL 0.2-1.2 (BEAKER) (test code = 377) SODIUM (BEAKER) (test 135 meq/L 136-145 L code = 381) POTASSIUM (BEAKER) 4.8 meq/L 3.5-5.1 (test code = 379) CHLORIDE (BEAKER) 106 meq/L 98-107 (test code = 382) CO2 (BEAKER) (test 19 meq/L 22-29 L code = 355) BLOOD UREA NITROGEN 23 mg/dL 7-21 H (BEAKER) (test code = 354) CREATININE (BEAKER) 1.19 mg/dL 0.57-1.25 (test code = 358) GLUCOSE RANDOM 89 mg/dL 70-105 (BEAKER) (test code = 652) CALCIUM (BEAKER) 11.1 mg/dL 8.4-10.2 H (test code = 697) AST (SGOT) (BEAKER) 25 U/L 5-34 (test code = 353) ALT (SGPT) (BEAKER) 27 U/L 6-55 (test code = 347) EGFR (BEAKER) (test 62 mL/min/1.73 ESTIMA ANSHU GFR IS code = 1092) sq m NOT ACCURATE CREATININE CLEARANCE IN PREDICTING GLOMERULAR FILTRATION RATE . ESTIMATED GFR I S NOT APPLICABLE FOR DIALYSIS PATIEN TS. Washer Engineer Helper ID - NTPSpecimen slightly lipemicPREGNANCY SCREEN, [id number] 20:16:00 Test Item Value Reference Range Interpretation Comments TEST URINE (BEAKER) (test Negative code = 583) Lactic acid, [id number] 19:13:00 Test Item Value Reference Range Interpretation Comments Lactate, Venous (test code 0.91 mmol/L 0.5-2.2 = 2872) ELADIA (test code = ELADIA) Washer Engineer Helper ID - NTP Lab Interpretation (test Normal code = 32851-7) [facility], [id number] 19:13:00 Test Item Value Reference Range Interpretation Comments LACTATE BLOOD VENOUS (2) (BEAKER) 0.91 mmol/L 0.50-2.20 (test code = 2872) Washer Engineer Helper ID - NTPRAD, ABDOMEN/KUB, 1 VIEW [id number] 19:03:00Reason for exam:->FEVERFINAL REPORT TECHNIQUE: RAD, CHEST, 1 VIEW, NON DEPT, RAD, ABDOMEN/KUB, 1 VIEW AP INDICATION: FEVER COMPARISON: None. FINDINGS:Cardiac mediastinal contours within normal limits. There are patchy opacities in the bilateral mid and lower lung zones. No free intracranial air. Thereare bilateral ureteral stents. There are multiple densities adjacent to the proximal portion of the stent and may represent ureteral calculi along the course of the stent. Multiple calculi project overthe bilateral renal shadows, right greater than left. Bowel gas pattern is indeterminate due to paucity of small bowel gas. IMPRESSION:Patchy opacities in the bilateral lung bases which may represent pneumonia and/or atelectasis. Bilateral ureteral stents with calculi along the course of the proximalright stent likely within the ureter. There are multiple additional bilateral nonobstructing calculi, right greater than left.. Signed: Charles Medina MDReport Verified Date/Time: 03/10/2020 19:03:48 Reading Location: [address] Transitional Reading Room RAD, CHEST, 1 VIEW, NON [id number] 19:03:00Reason for exam:->FEVERShould this be performed at the bedside?->YesFINAL REPORT TECHNIQUE: RAD, CHEST, 1 VIEW, NON DEPT, RAD, ABDOMEN/KUB, 1 VIEW AP INDICATION: FEVER COMPARISON: None. FINDINGS:Cardiac mediastinal contours within normal limits. There are patchy opacities in the bilateral mid and lower lung zones. No free intracranial air. Thereare bilateral ureteral stents. There are multiple densities adjacent to the proximal portion of the stent and may represent ureteral calculi along the course of the stent. Multiple calculi project overthe bilateral renal shadows, right greater than left. Bowel gas pattern is indeterminate due to paucity of small bowel gas. IMPRESSION:Patchy opacities in the bilateral lung bases which may represent pneumonia and/or atelectasis. Bilateral ureteral stents with calculi along the course of the proximalright stent likely within the ureter. There are multiple additional bilateral nonobstructing calculi, right greater than left.. Signed: Charles Medina MDReport Verified Date/Time: 03/10/2020 19:03:48 Reading Location: [facility] C0[facility] Transitional Reading Room XR abdomen / KUB 1 [id number] 19:03:00 Interface, External Ris In - 03/10/2020 7:05 PM CDTFINAL REPORT TECHNIQUE: RAD, CHEST, 1 VIEW, NON DEPT, RAD, ABDOMEN/KUB, 1 VIEW AP INDICATION: FEVER COMPARISON: None. FINDINGS:Cardiac mediastinal contours within normal limits. There are patchy opacities in the bilateral mid and lower lung zones. No free intracranial air. There are bilateral ureteral stents. There are multiple densities adjacent to the proximal portion of the stent and may represent ureteral calculi along the course of the stent. Multiple calculi project over the bilateral renal shadows, right greater than left. Bowel gas pattern is indeterminate due to paucity of small bowel gas. IMPRESSION:Patchy opacities in the bilateral lung bases which may represent pneumonia and/or atelectasis. Bilateral ureteral stents with calculi along the course of the proximal right stent likely within the ureter. There are multiple additional bilateral nonobstructing calculi, right greater than left.. Signed: Charles Medina MDReport Verified Date/Time: 03/10/2020 19:03:48 Reading Location: [facility] C013T Transitional Reading Room [facility] portable / [id number] 19:03:00Interface, External Ris In - 03/10/2020 7:05 PM CDTFINAL REPORT TECHNIQUE: RAD, CHEST, 1 VIEW, NON DEPT, RAD, ABDOMEN/KUB, 1 VIEW AP INDICATION: FEVER COMPARISON: None. FINDINGS:Cardiac mediastinal contours within normal limits. There are patchy opacities in the bilateral mid and lower lung zones. No free intracranial air. There are bilateral ureteral stents. There are multiple densities adjacent to the proximal portion of the stent and may represent ureteral calculi along the course of the stent. Multiple calculi project over the bilateral renal shadows, right greater than left. Bowel gas pattern is indeterminate due to paucity of small bowel gas. IMPRESSION:Patchy opacities in the bilateral lung bases which may represent pneumonia and/or atelectasis. Bilateral ureteral stents with calculi along the course of the proximal right stent likely within the ureter. There are multiple additional bilateral nonobstructing calculi, right greater than left.. Signed: Charles Medina MDReport Verified Date/Time: 03/10/2020 19:03:48 Reading Location: [facility] B1 C013T Transitional Reading Room [facility] HospitalBASIC METABOLIC [id number] 17:55:00 Test Item Value Reference Range Interpretation Comments SODIUM (BEAKER) 135 meq/L 136-145 L (test code = 381) POTASSIUM (BEAKER) 4.7 meq/L 3.5-5.1 (test code = 379) CHLORIDE (BEAKER) 106 meq/L 98-107 (test code = 382) CO2 (BEAKER) (test 20 meq/L 22-29 L code = 355) BLOOD UREA NITROGEN 23 mg/dL 7-21 H (BEAKER) (test code = 354) CREATININE (BEAKER) 1.12 mg/dL 0.57-1.25 (test code = 358) GLUCOSE RANDOM 91 mg/dL 70-105 (BEAKER) (test code = 652) CALCIUM (BEAKER) 11.1 mg/dL 8.4-10.2 H (test code = 697) EGFR (BEAKER) (test 66 mL/min/1.73 ESTIMA ANSHU GFR IS code = 1092) sq m NOT ACCURATE CREATININE CLEARANCE IN PREDICTING GLOMERULAR FILTRATION RATE . ESTIMATED GFR I S NOT APPLICABLE FOR DIALYSIS PATIEN TS. Washer Engineer Helper ID - NTPUrinalysis w/Microscopic + Reflex to [id number] 17:40:00 Test Item Value Reference Range Interpretation Comments Color, UA (test code = Yellow 5778-6) Clarity, UA (test code = Hazy 5767-9) Specific Lucas, UA (test 1.011 1.001-1.035 code = 5811-5) pH, UA (test code = 6.5 5.0-8.0 5803-2) Protein, UA (test code = 30 mg/dL Negative A 94529-4) Glucose, UA (test code = Negative Negative 365) Ketones, UA (test code = Negative Negative 2514-8) Bilirubin, UA (test code = Negative Negative 79776-2) Blood, UA (test code = Large Negative A 41985-1) Nitrite, UA (test code = Negative Negative 5802-4) Leukocytes, UA (test code Large Negative A = 5799-2) Urobilinogen, UA (test 0.2 mg/dL 0.2-1 code = 49710-6) RBC, UA (test code = 1277 /HPF 83116-6) WBC, UA (test code = 245 /HPF 5821-4) Mucus (test code = 8247-9) Rare Specimen Source (test code = 2795) ELADIA (test code = ELADIA) Washer Engineer Helper ID - [auto]Washer Engineer Helper ID - enoch Lab Interpretation (test Abnormal code = 45627-5) [facility]/ REFLEX URINE [id number] 17:40:00 Test Item Value Reference Range Interpretation Comments COLOR (BEAKER) (test code = 470) Yellow CLARITY (BEAKER) (test code = 469) Hazy SPECIFIC GRAVITY UA (BEAKER) (test 1.011 1.001-1.035 code = 468) PH UA (BEAKER) (test code = 467) 6.5 5.0-8.0 PROTEIN UA (BEAKER) (test code = 30 mg/dL Negative A 464) GLUCOSE UA (BEAKER) [...] RBC UA (BEAKER) (test code = 519) 1277 /HPF WBC UA (BEAKER) (test code = 520) 245 /HPF MUCUS (BEAKER) (test code = 1574) Rare SOURCE(BEAKER) (test code = 2795) Washer Engineer Helper ID - [auto]Washer Engineer Helper ID - enochCBC W/PLT COUNT & AUTO DIFFERENTIAL 2020-03-10 17:34:00 Test Item Value Reference Range Interpretation Comments WHITE BLOOD CELL COUNT (BEAKER) 3.9 K/ L 3.5-10.5 (test code = 775) RED BLOOD CELL COUNT (BEAKER) 3.87 M/ L 3.93-5.22 L (test code = 761) HEMOGLOBIN (BEAKER) (test code = 8.9 GM/DL 11.2-15.7 L 410) HEMATOCRIT (BEAKER) (test code = 30.2 % 34.1-44.9 L 411) MEAN CORPUSCULAR VOLUME (BEAKER) 78.0 fL 79.4-94.8 L (test code = 753) MEAN CORPUSCULAR HEMOGLOBIN 23.0 pg 25.6-32.2 L (BEAKER) (test code = 751) MEAN CORPUSCULAR HEMOGLOBIN CONC 29.5 GM/DL 32.2-35.5 L (BEAKER) (test code = 752) RED CELL DISTRIBUTION WIDTH 17.6 % 11.7-14.4 H (BEAKER) (test code = 412) PLATELET COUNT (BEAKER) (test 276 K/CU MM 150-450 code = 756) MEAN PLATELET VOLUME (BEAKER) 9.8 fL 9.4-12.3 (test code = 754) NUCLEATED RED BLOOD CELLS 0 /100 WBC 0-0 (BEAKER) (test code = 413) NEUTROPHILS RELATIVE PERCENT 72 % (BEAKER) (test code = 429) LYMPHOCYTES RELATIVE PERCENT 17 % (BEAKER) (test code = 430) MONOCYTES RELATIVE PERCENT 8 % (BEAKER) (test code = 431) EOSINOPHILS RELATIVE PERCENT 2 % (BEAKER) (test code = 432) BASOPHILS RELATIVE PERCENT 0 % (BEAKER) (test code = 437) NEUTROPHILS ABSOLUTE COUNT 2.82 K/ L 1.56-6.13 (BEAKER) (test code = 670) LYMPHOCYTES ABSOLUTE COUNT 0.65 K/ L 1.18-3.74 L (BEAKER) (test code = 414) MONOCYTES ABSOLUTE COUNT (BEAKER) 0.31 K/ L 0.24-0.36 (test code = 415) EOSINOPHILS ABSOLUTE COUNT 0.07 K/ L 0.04-0.36 (BEAKER) (test code = 416) BASOPHILS ABSOLUTE COUNT (BEAKER) 0.01 K/ L 0.01-0.08 (test code = 417) IMMATURE GRANULOCYTES-RELATIVE 2 % 0-1 H PERCENT (BEAKER) (test code = 2801) Pancreatic elastase, [id number] 19:39:00 Test Item Value Reference Interpretation Comments Range Pancreatic >500 mcg/g Adult and Pedi atric Elastase (test Reference Ran [facility] for code = 17111-2) Pancreatic E lastase-1: Nor mal: >200 mcg/gMode rate Pancreatic Insufficiency: 100-200 mcg/g Severe Pancreatic Insufficiency: <100 mcg/g Elas tase-1 (E-1) assay res ults are expressedin mcg /g, which represent mcg E1/g feces. It is not necessary to in terrupt enzymesubstitut ion therapy. ELADIA (test code = Performing Lab ELADIA) [facility] [address] [place] [address] Tati Wallace MD, PhD, KATHRYN [facility] HospitalFecal fat, [id number] 15:50:00 Test Item Value Reference Range Interpretation Comments Total Weight 5 g (test code = 3953763) Collection Time NOT GIVEN h Hrs (test code = 5231145) Fecal Lipids, SEE BELOW <7 g/24 h [...] characteristics havebeen determ ined by [facility] .It has not been cleare d or approved by FDA . This assay has been validatedpursua nt to the CLIA regula tions and is used for clinical purpos es. ELADIA (test code = Performing Lab ELADIA) [facility] [employer] [facility] [address] [place] [address] Tati Wallace MD, PhD, KATHRYN [facility] HospitalBLOOD [id number] 21:00:00 Test Item Value Reference Range Interpretation Comments CULTURE (BEAKER) (test No growth in 5 days code = 1095) BLOOD [id number] 21:00:00 Test Item Value Reference Range Interpretation Comments CULTURE (BEAKER) (test No growth in 5 days code = 1095) Surgically obtained culture + gram [id number] 09:20:00 Test Item Value Reference Interpretation Comments Range Result (test code = From Broth Only A Refer to previous 6463-4) Same organism has culture been isolated from ofPrevote lla culture(s) of the bivia same body site and collection date. Repeat identification performed only after consultation with the clinical microbiology laboratory. Gram Stain Result 2+ gram negative (test code = 1123) rods ELADIA (test code = ELADIA) Lab Interpretation Abnormal (test code = 86487-4) [facility] GRAM [id number] 09:20:00 Test Item Value Reference Range Interpretation [...] negative RESULT (BEAKER) rods (test code = 362732) SURGICALLY OBTAINED CULTURE + GRAM [id number] 09:20:00 Test Item Value Reference Range Interpretation [...] negative RESULT (BEAKER) rods (test code = 586212) SURGICALLY OBTAINED CULTURE + GRAM [id number] 09:20:00 Test Item Value Reference Range Interpretation Comments CULTURE (BEAKER) A From Broth Only (test code = Prevotella bivi a 1095) GRAM STAIN RESULT 4+ WBCs (BEAKER) (test code = 1123) GRAM STAIN RESULT 4+ gram negative (BEAKER) (test rods code = 29307) [id number] 04:43:00 Test Item Value Reference Range Interpretation Comments Magnesium (test code = 1.8 mg/dL 1.6-2.6 91576-0) ELADIA (test code = ELADIA) Washer Engineer Helper ID - EDASI Lab Interpretation (test Normal code = 70885-7) [facility]00 Test Item Value Reference Range Interpretation Comments MAGNESIUM (BEAKER) (test code = 1.8 mg/dL 1.6-2.6 627) Washer Engineer Helper ID - EDASIBASIC METABOLIC [id number] 04:43:00 Test Item Value Reference Range Interpretation [...] S NOT APPLICABLE FOR DIALYSIS PATIEN TS. Washer Engineer Helper ID - EDASICBC W/PLT COUNT & AUTO [id number] 04:15:00 Test Item Value Reference Range Interpretation [...] code = 2801) Stool culture + Shiga [id number] 10:04:00 Test Item Value Reference Range Interpretation Comments Result (test code = No Salmonella, Shigella or 6463-4) Campylobacter isolated ELADIA (test code = Unable to test for Shiga ELADIA) Toxin 1 due to insufficient growth of specimen.Unable to test for Shiga Toxin 2 due to insufficient growth of specimen.Resubmit new specimen if clinically indicated. [facility] SHIGA [id number] 10:04:00 Test Item Value Reference Range Interpretation [...] H PERCENT (BEAKER) (test code = 2801) [id number] 05:37:00 Test Item Value Reference Range Interpretation Comments MAGNESIUM (BEAKER) (test code = 2.0 mg/dL 1.6-2.6 627) Washer Engineer Helper ID - TRISH MBASIC METABOLIC [id number] 05:37:00 Test Item Value Reference Range Interpretation [...] S NOT APPLICABLE FOR DIALYSIS PATIEN TS. Washer Engineer Helper ID - TRISH MSTOOL PATH [id number] 11:24:00 Test Item Value Reference Range Interpretation Comments Pathogen exam charged (test code = Done 2381) [facility] [id number] 11:24:00 Test Item Value Reference Range Interpretation Comments PATHOGEN EXAM CHARGED (BEAKER) (test Done code = 2381) [id number] 07:46:00 Test Item Value Reference Range Interpretation Comments MAGNESIUM (BEAKER) (test code = 2.1 mg/dL 1.6-2.6 627) Washer Engineer Helper ID - DBBASIC METABOLIC [id number] 07:46:00 Test Item Value Reference Range Interpretation [...] S NOT APPLICABLE FOR DIALYSIS PATIEN TS. Washer Engineer Helper ID - DBVitamin D, [id number] 07:30:00 Test Item Value Reference Range Interpretation Comments Vitamin D 25-Hydroxy 6.2 ng/mL 6.6-49.9 L (test code = 2764) ELADIA (test code = ELADIA) Effective 04/24/2017: Reference Range ChangeNew: 6.6-49.9 ng/mL Previous: 13.0-47.8 ng/mL Recommended Vitamin D Target Range: 30.0-40.0 ng/mLOperator ID - DB Lab Interpretation (test Abnormal code = 28668-1) [facility]IN D, [id number] 07:30:00 Test Item Value Reference Range Interpretation Comments VITAMIN D 25-OH (BEAKER) (test code 6.2 ng/mL 6.6-49.9 L = 2764) Effective 04/24/2017: Reference Range ChangeNew: 6.6-49.9 ng/mL Previous: 13.0-47.8 ng/mLRecommended Vitamin D Target Range: 30.0-40.0 ng/mLOperator ID - DBTSH/Free T4 If [id number] 07:19:00 Test Item Value Reference Range Interpretation Comments TSH (test code = 09150-8) 1.404 0.350- 4.940 uIU/mL ELADIA (test code = ELADIA) Washer Engineer Helper ID - DB Lab Interpretation (test Normal code = 62634-5) [facility] HospitalTSH/FREE T4 IF [id number] 07:19:00 Test Item Value Reference Range Interpretation Comments THYROID STIMULATING HORMONE 1.404 uIU/mL 0.350-4.940 (BEAKER) (test code = 772) Washer Engineer Helper ID - DBCBC W/PLT COUNT & AUTO [id number] 07:03:00 Test Item Value Reference Range Interpretation [...] (test code = 2801) Clostridium difficile GDH [id number] 01:09:00 Test Item Value Reference Range Interpretation Comments C. Difficle Toxin Negative Negative (test code = 2663415922) C. Difficile GDH Negative Negative No indicati on of Antigen (test code = Clostri dium [id number]) difficile infection and n o colonization. Discontinue enteric isolati on and therapy. ELADIA (test code = Testing performed ELADIA) by [employer] Rapid Cassette Assay. For GDH, published sensitivity of the assay is 98.7% compared to cytotoxicity testing. For Toxin AB, published sensitivity is 87.8% and specificity 99.4% compared to cytotoxicity testing.Verificati on of kit performance was done by the [facility] prior to clinical use. Lab Interpretation Normal (test code = 91023-6) [facility]. DIFFICILE GDH [id number] 01:09:00 Test Item Value Reference Range Interpretation Comments CDT TOXIN (test code Negative Negative = 3346137018) CDT GDH ANTIGEN (test Negative Negative No ind ication of code = 9783215392) Clostridi um difficile infection and n o colonization. Discontinue ent [place] isolation and t herapy. Testing performed by Ale[employer] Rapid Cassette Assay. For GDH, published sensitivity of the assay is 98.7% compared to cytotoxicity testing. For Toxin AB, published sensitivity is 87.8% and specificity 99.4% compared to cytotoxicity testing.Verification of kit performance was done by the [facility] prior to clinical use.ABORH, [id number] 06:59:00 Test Item Value Reference Range Interpretation Comments ABO Grouping (test code = 2588) O Rh Factor (test code = 2589) POS [facility] 05:03:00 Test Item Value Reference Range Interpretation Comments MAGNESIUM (BEAKER) (test code = 1.9 mg/dL 1.6-2.6 627) Washer Engineer Helper ID - EDASIBASIC METABOLIC [id number] 05:03:00 Test Item Value Reference Range Interpretation [...] S NOT APPLICABLE FOR DIALYSIS PATIEN TS. Washer Engineer Helper ID - [id number] 04:59:00 Test Item Value Reference Range Interpretation Comments PTT (test code = 67991-8) 47.6 22.5- 36.0 seconds H Lab Interpretation (test code = Abnormal 30878-6) [facility]APTT[facility] 04:59:00 Test Item Value Reference Range Interpretation Comments PARTIAL THROMBOPLASTIN TIME 47.6 seconds 22.5-36.0 H (BEAKER) (test code = 760) PROTHROMBIN TIME/[id number] 04:58:00 Test Item Value Reference Range Interpretation [...] mechanical heart valves.CBC W/PLT COUNT & AUTO [id number] 04:57:00 Test Item Value Reference Range Interpretation [...] PERCENT (BEAKER) (test code = 2801) FL, HOBBER IN OR/30 MINUTE [id number] 00:24:46Reason for exam:- >PT HAVING CYSTO/ STENT IN ORFluoroscopic unit utilized for a procedure performed in the OR. No interpretation was requested. Refer to the operative report for findings. Refer to PACS for patient radiation dose information.FL trades helper in or 30 minute [id number] 00:03:00Interface, External Ris In - 02/22/2020 6:08 PM CDTFluoroscopic unit utilized for a procedure performed in the OR. No interpretation was requested. Refer to the operative report for findings. Referto PACS for patient radiation dose information.[facility])2020-02-21 21:52:00 Test Item Value Reference Range Interpretation Comments SARS-COV2/RT-PCR (test code Negative Not Detected, Negative, = 4073191) See external report for linked test SARS-COV-[address] [facility] (test code = 9453273) Negative results do not preclude SARS-CoV-2 infection [...] of the Act.Fact Sheet for Healthcare Pro viders:https://www.[employer]/Documents/Xpert%20Xpress%20SARS%20CoV-2/Fact%20Sh eets/302-3802%16WVGK-CXC-4%20HEALTHCARE%20PROVIDERS%20FACT%20SHEET.pdfFact Sheet for Healthcare Patients:https://www.[employer]/Documents/Xpert%20Xpress%20SARS%20CoV-2/Fact%20Sheets/3023801%20SARS-COV -2%20PATIENT%20FACT%20SHEET.pdfPerforming Laboratory:[address] Fuller.[place], [place] [address]AYGPAFDVN SCREEN, [id number] 21:36:00 Test Item Value Reference Range Interpretation Comments TEST URINE (BEAKER) (test Negative code = 583) COMPREHENSIVE METABOLIC [id number] 20:08:00 Test Item Value Reference Range Interpretation [...] 347) EGFR (BEAKER) (test 26 mL/min/1.73 ESTIMA ANSHU GFR IS code = 1092) sq m NOT ACCURATE CREATININE CLEARANCE IN PREDICTING GLOMERULAR FILTRATION RATE . ESTIMATED GFR I S NOT APPLICABLE FOR DIALYSIS PATIEN TS. Washer Engineer Helper SANTANA PATEL FLACTIC ACID, [id number] 20:01:00 Test Item Value Reference Range Interpretation Comments LACTATE BLOOD VENOUS (2) (BEAKER) 1.25 mmol/L 0.50-2.20 (test code = 2872) Washer Engineer Helper ID - AMANDA FPT/[id number] 20:00:00 Test Item Value Reference Range Interpretation [...] mechanical heart valves.CBC W/PLT COUNT & AUTO [id number] 19:56:00 Test Item Value Reference Range Interpretation [...] 0-1 PERCENT (BEAKER) (test code = 2801) URINALYSIS W/ REFLEX URINE [id number] 19:44:00 Test Item Value Reference Range Interpretation [...] 1585) Few SOURCE(BEAKER) (test code = 2795) Washer Engineer Helper ID - [auto]Washer Engineer Helper ID - techCHEST 2 VIEW*GP*2019-05-07 12:30:41Exam: Chest x-ray 2 viewsHISTORY: SarcoidosisLocation: [id number]:The heart size is normal with diffuse interstitial [...]
[2020-04-22] MEDS ORDERED: LIDOCAINE 1% MPF 2 ML AMPULE ONE (09:59)
[2020-04-22] MEDS ORDERED: CEFTRIAXONE 1000 MG/VIAL ONE (09:59)
[2020-04-22 10:06] LABS: Urine Blood 3+ (NEG); Urine Glucose NEGATIVE (NEG); Urine Protein 3+ (NEG)
[2020-04-22] MEDS ORDERED: CODEINE 30MG/APAP 300MG TAB ONE (10:30)
[2020-04-22 10:41] VITALS: BP 117/86; TEMP 98; O2SAT 99
== END 2020-04-22 10:26 | disposition home or self-care (01) ==
LOC: ER 08:34
DX: N39.0 Urinary tract infection, site not specified (principal); I10 Essential (primary) hypertension; F17.210 Nicotine dependence, cigarettes, uncomplicated; Z87.442 Personal history of urinary calculi; Z91.048 Other nonmedicinal substance allergy status
CPT/HCPCS: 81003; 81025; 87086; 87088; 96372; 99283; J2001

== ENCOUNTER 2020-10-18 09:03 | Emergency (ER) | payer SELFPAY ==
--- OUTSIDE RECORDS SUMMARY | 2020-10-18 09:12 | XMS REPORT | Continuity of Care Document ---
:[address] [facility] t Address [address] Rodríguez. [address] [place] [id number] Care Team Providers Name Role Phone DANIEL ANDERSON Attending Clinician Unavailable Daniel Anderson MD Attending Clinician Rome Ayoub MD Attending Clinician Unavailable Yonatan Iraheta MD Attending Clinician Pedro Artis CRNA Attending Clinician Breezy TELLEZ Attending Clinician ROME AYOUB Attending Clinician Unavailable Julia Fonseca MD Attending Clinician Emmanuelle TELLEZ Attending Clinician Keshia Mari MD Attending Clinician Henok Parra MD Attending Clinician Kushal Del Castillo MD Attending Clinician Cheryle Escamilla MD Attending Clinician Mela TELLEZ Attending Clinician Merchant TELLEZ Attending Clinician KUSHAL DEL CASTILLO Attending Clinician Unavailable Chu Finley MD Attending Clinician Margareth Kwong MD Attending Clinician James Iraheta MD Attending Clinician Brian MD, P. Attending Clinician Margareth KWONG Attending Clinician Unavailable Marilu TELLEZ, Esme Attending Clinician DR NEMO Attending Clinician Unavailable Scotty TELLEZ Attending Clinician ROME AYOUB Admitting Clinician Unavailable MELA Admitting Clinician Unavailable DR NEMO Admitting Clinician Unavailable Payers Payer Name Policy Type Policy Effective Date Expiration Date Sour ce Number MEDICAIDMEDICAID OF [id number] [facility] [id number] 2020 00:00:00 - Medical -PresentMedicaid Center Problems Condition Condition Condition Status Onset Resolution Last Treating Co mments Source Name Details Category Date Date Treatment Clinician Date Retained Retained Disease Active 2019-[facility] 2 [facility] - stent stent 00:00: Medical 00 [place] Kidney Kidney Disease Active 2019-[address] [facility] stone stone [facility] - 00:00: Medical 00 [place] Flank pain Flank pain Disease Active 2019-[address] [facility] - 00:00: Medical 00 [place] Fever, Fever, Disease Active [facility] unspecifie unspecifie 03-11 [facility] - d fever d fever 00:00: Medical cause cause 00 Center UTI UTI Disease Active [facility] (urinary (urinary 03-10 [facility] - tract tract 00:00: Medical infection) infection) 00 Ce nter Obstructiv Obstructiv Disease Active [facility] e uropathy e uropathy 02-20 [facility]a kes - 00:00: Medical 00 [place] Sepsis Sepsis Disease Active [facility] secondary secondary 02-20 [facility] - to UTI to UTI 00:00: Medical 00 Center MARIA GUADALUPE (acute MARIA GUADALUPE (acute Disease Active [facility] kidney kidney 02-20 [facility] - injury) injury) 00:00: Medical 00 Center Sarcoidosi Sarcoidosi Disease Active [facility] s 02-20 [facility] - 00:00: Medical 00 Center Ureteral Ureteral Disease Active [facility] stone with stone with 02-20 [facility] - hydronephr hydronephr 00:00: Me dical osis osis 00 Center Stones in Stones in Disease Active Overview: [facility] the the 02-20 Added [facility] - urinary urinary 00:00: automatic Medic al tract tract 00 ally from Center request for surgery [id number] Allergies, Adverse Reactions, Alerts Allergy Allergy Status Severity Reaction(s) Onset Inactive Treating Comm ents Source Name Type Date Date Clinician Iodine Drug Active Hives, 2019-07 Rash, [facility] Allergy Swelling 2-10 Throat [facility] - Iodide 00:00: swelling Medical Containi 00 Center ng Products Shellfis Propensi Active Hives 2019-[address] [facility] h ty to 2-10 [facility] - Containi adverse 00:00: Medical ng reaction 00 Center Products s Penicill Propensi Active Augmentin [facility] ins ty to 02-28 --"swelli [facility] - adverse 00:00: ng of Medical reaction 00 arms, Center s feet and lips" Social History Social Habit Start Date Stop Date Quantity Comments Source History SDOH [facility] - Alcohol Std Drinks Medica l Center History [facility] - Alcohol Binge Medical Emir ter Sex Assigned At [facility] Tobacco use and 2020-06-24 2020-06-24 Never used [facility] - exposure 00:00:00 00:00:00 [facility] Center Alcohol intake 2020-06-24 2020-06-[address] [facility]00 non-drinker of Medical Ce nter alcohol (finding) History [facility] 2020-03-11 2020-03-[address] [facility] - Alcohol Frequency 00:00:00 00:00:00 [facility] Smoking Status Start Date Stop Date Source Former smoker 2020-06-24 00:00:00 2020-06-24 00:00:[address] [facility] Medications Ordered Filled Start Stop Current Ordering Indication Dosage Frequency Signature Comments Components Source Medication Medication Date Date Medication? Clinician (SIG) Name Name acetaminoph 2019-07 Yes pain 1000mg Take 1,[address] [facility] en 2-11 mg by [facility]ukes - (TYLENOL) 21:01: mouth Medical 500 MG 31 every 6 Center tablet (six) hours as needed for Pain. 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 lactobacill 2019-07 Yes 1{capsu QD Take [address] us 2-11 le} capsule by [facility]ukes - rhamnosus, 21:01: mouth Medica l GG, 31 daily. [place] ([facility] ) 10 billion cell capsule multivitami 2019-07 Yes 1{tbl} QD Take [address] n per 2-11 tablet by [facility] - tablet 21:01: mouth Medical 31 daily. [place] sulfamethox 2019-07- No 160mg{t Q.5D Take [address] azole-trime 2-11 12-18 rimetho tablet Daya kes - thoprim 00:00: 23:59 prim} (160 mg of Me dical (BACTRIM 00 :00 trimethopr Cente r DS) 800-160 im total) mg per by mouth 2 tablet (two) times daily for 7 days. sulfamethox 2019-07- No 160mg{t Q.5D Take [address] azole-trime 2-11 12-18 rimetho tablet Daya kes - thoprim 00:00: 23:59 prim} (160 mg of Me dical (Bactrim 00 :00 trimethopr Cente r DS) 800-160 im total) mg per by mouth 2 tablet (two) times daily for 7 days. sulfamethox 2019-07 Yes 1{tbl} Q.5D Take [address] azole-trime 2-03 tablet by Elise es - thoprim 00:00: mouth 2 Medical (BACTRIM 00 (two) Center DS) 800-160 times mg per daily. tablet oxybutynin 2019-07 No 15mg QD Take [address] (DITROPAN 07-1804 tablet (15 Elise es - XL) 15 MG 00:00: 23:59 mg total) Me dical 24 hr 00 :00 by mouth Center tablet nightly. traMADoL 2019-07- No 100mg Take [address] 100 mg Tab 1-04 11-14 mg by Lukes - 00:00: 23:59 mouth Medical 00 :00 every 6 Center (six) hours as needed for up to 10 days. Max Daily Amount: 400 mg sulfamethox 2019-07- No 160mg{t Q.5D Take [address] azole-trime 1- 11-09 rimetho tablet Daya kes - thoprim 00:00: 23:59 prim} (160 mg of Me dical (BACTRIM 00 :00 trimethopr Cente r DS) 800-160 im total) mg per by mouth 2 tablet (two) times daily for 5 days. fluconazole 2019-0 2020- No 200mg QD Take [address] (DIFLUCAN) 03-23 tablet [facility] - 200 MG 00:00: 23:59 (200 mg Medical tablet 00 :00 total) by Center mouth daily for 7 days. HYDROcodone 2019- 2020- No pain 1{tbl} Take [address] -acetaminop 03-22 tablet by Daya rubin (NORCO 00:00: 23:59 mouth Medic al 5-325) 00 :00 every 6 Center 5-325 mg (six) per tablet hours as needed for Pain for up to 10 days. Max Daily Amount: 4 tablets ciprofloxac 2019- 2020- No 500mg Take [address] in HCl 03-22 tablet [facility]ukes - (CIPRO) 500 00:00: 23:59 (500 mg Me dical MG tablet 00 :00 total) by Cente r mouth every 12 (twelve) hours for 7 days. HYDROcodone 2019-0 2020- No 1{tbl} Take [address] -acetaminop 03-22 tablet by Daya rubin (NORCO 00:00: 00:00 mouth Medic al 5-325) 00 :00 every 6 Center 5-325 mg (six) per tablet hours as needed for up to 10 days. Max Daily Amount: 4 tablets metroNIDAZO 2019- 2020- No 500mg [id number] Take [address] LE (FLAGYL) 02-28 [id number] mg by [facility]ukes - 500 MG 00:00: 00:00 3D mouth 3 Medical tablet 00 :00 (three) Center times daily FOR 10 DAYS. tamsulosin 2019-0 Yes .4mg QD Take 1 [facility] (FLOMAX) 8-14 capsule [facility] - 0.4 mg Cap 00:00: (0.4 mg Medi fabiola 24 hr 00 total) by Center capsule mouth daily. predniSONE 2019-0 2020- No 10mg QD Take [address] (DELTASONE) 8-14 11-12 tablet (10 L ukes - 10 MG 00:00: 23:59 mg total) Medica l tablet 00 :00 by mouth Center daily for 90 days. pantoprazol 2019- No 40mg Q.5D Take [address] e 02-2412 tablet (40 [facility] - (PROTONIX) 00:00: 23:59 mg total) M edical 40 MG 00 :00 by mouth 2 Center tablet (two) times daily for 30 days. amoxicillin 2019- No 1{tbl} Q.5D Take [address] -clavulanat 02-2417 tablet by Adya kes - e 00:00: 00:00 mouth 2 Medical (AUGMENTIN) 00 :00 (two) Center 875-125 mg times per tablet daily for 14 days. phenazopyri No 95mg Take [address] dine 02-2416 tablet (95 [facility] - (PYRIDIUM) 00:00: 23:59 mg total) M edical 95 MG 00 :00 by mouth 3 Center tablet (three) times daily with meals for 3 days. Immunizations Ordered Immunization Filled Immunization Date Status Commen ts Source Name Name Pneumococcal 2020-06-24 Completed [facility] - Conjugate (Prevnar) 00:00:00 [facility] Influenza Four-QIV 2020-06-23 Completed [facility] - PF 3YR+ 00:00:00 [facility] Center Vital Signs Vital Name Observation Time Observation Value Comments Source Systolic blood 2020-06-24 19:25:00 119 mm[Hg] [facility] Diastolic blood 2020-06-24 19:25:00 78 mm[Hg] [facility] Heart rate 2020-06-24 19:25:00 92 /min [facility] Body temperature 2020-06-24 19:25:00 36.56 Bella [facility] Respiratory rate 2020-06-24 19:25:00 18 /min [facility] Oxygen saturation in 2020-06-24 19:25:00 100 /min [facility] Arterial blood by Medical Ce nter Pulse oximetry Body weight 2020-06-23 06:12:00 77.111 kg [facility] BMI 2020-06-23 06:12:00 29.18 kg/m2 [facility] Body height 2020-06-22 18:57:00 162.6 cm [facility] Procedures Procedure Date / Time Performed Performing Clinician [facility] e CBC W/PLT COUNT & AUTO 2020-06-24 06:37:00 Julianne Davis [facility] BASIC METABOLIC PANEL (7) 2020-06-24 06:37:00 Julianne Davis [facility] [place] FLUORO NON-SPECIFIC UP 2020-06-23 21:57:00 ArisFreddie london beatris [facility] - TO 1 HOUR [facility] CYSTOSCOPY,URETEROSCOPY 2020-06-23 18:37:00 Aris Freddie Sunde r [facility] - W/ LITHOTRIPSY AND Medical Cente r URETERAL STENT PROCEDURE W/ C-ARM 2020-06-23 18:37:00 Aris Freddieruslan Polanco [facility] CYSTOSCOPY,REMOVAL 2020-06-23 18:37:00 ArisFreddie london [facility] URETERAL STENTS [facility] CYSTOSCOPY,INSERTION 2020-06-23 18:37:00 Aris, Freddie Rome [facility] URETERAL STENTS [facility] BASIC METABOLIC PANEL (7) 2020-06-23 14:00:00 Julianne Davis [facility] CBC W/PLT COUNT & AUTO 2020-06-23 05:49:00 JeriHieu [facility] BASIC METABOLIC PANEL (7) 2020-06-23 04:36:00 JeriHieu vazquez [facility] MAGNESIUM 2020-06-23 04:36:00 JeriHieu [facility] PHOSPHORUS 2020-06-23 04:36:[address] [facility] ABDOMEN/PELVIS WITHOUT 2020-06-23 00:21:00 Elian Fonseca or [facility] IV CONTRAST [facility] SARS-COV2/RT-PCR ([facility] & 2020-06-22 20:15:00 Jaden Jerome [facility] - REF LABS) [facility] URINALYSIS W/ REFLEX 2020-06-22 20:11:00 Anderson, Austen [facility] - URINE CULTURE [facility] SCREEN, URINE 2020-06-22 20:11:[address] [facility] URINE CULTURE 2020-06-22 20:09:00 Hieu Wilcox [facility] BLOOD CULTURE 2020-06-22 19:58:00 Monica [facility] BLOOD CULTURE 2020-06-22 19:43:00 Monica [facility] CBC W/PLT COUNT & AUTO 2020-06-22 19:43:00 Monica [facility] S [facility] DIFFERENTIAL [facility] COMPREHENSIVE METABOLIC 2020-06-22 19:43:00 Monica [facility] PANEL [facility] CBC W/PLT COUNT & AUTO 2020-05-18 05:52:00 Hieu Wilcox [facility] BASIC METABOLIC PANEL (7) 2020-05-18 05:52:00 Hieu Wilcox [facility] [place] FLUORO NON-SPECIFIC UP 2020-05-17 16:17:00 Hieu Wilcox CH, I [address] STONE ANALYSIS 2020-05-17 16:08:16 Freddie Ayoub [facility] STONE ANALYSIS 2020-05-17 15:11:21 Freddie Ayoub [facility] TISSUE EXAM 2020-05-17 14:13:00 Freddie Ayoub [facility] CYSTOSCOPY,URETEROSCOPY 2020-05-17 12:54:00 Freddie Ayoub [facility] - W/ LITHOTRIPSY AND Medical Cente r URETERAL STENT PROCEDURE W/ C-ARM 2020-05-17 12:54:00 Freddie Ayoub [facility] SCREEN, URINE 2020-05-17 07:51:00 Tres Parra [facility] PROTHROMBIN TIME/INR 2020-05-17 07:50:00 Hieu Wilcox [facility] APTT 2020-05-17 07:50:00 Jeri, Hieu [facility] CBC W/PLT COUNT & AUTO 2020-05-17 05:01:00 Hieu Wilcox [facility] BASIC METABOLIC PANEL (7) 2020-05-17 05:01:00 Hieu Wilcox [facility] CALCIUM, IONIZED 2020-05-17 05:01:00 Suman [facility] PHOSPHORUS 2020-05-17 05:01:00 Suman [facility] MAGNESIUM 2020-05-17 05:01:00 [facility] HE[facility] FUN[facility] PAN[facility] 2020-05-17 05:01:00 Jeri Hieu [facility] CALCIUM, 24 HOUR URINE 2020-05-16 19:28:00 [facility] SARS-COV2/RT-PCR ([facility] & 2020-05-16 16:02:00 Hieu Wilcox [facility] - REF LABS) [facility] CT ABDOMEN/PELVIS WITH & 2020-05-16 15:48:00 [facility]AST Medical Cent er VITAMIN D, 25-HYDROXY 2020-05-16 04:42:00 Suman [facility] CBC W/PLT COUNT & AUTO 2020-05-16 04:42:00 Hieu Wilcox [facility] BASIC METABOLIC PANEL (7) 2020-05-16 04:42:00 Hieu Wilcox [facility] CALCIUM, IONIZED 2020-05-16 04:42:00 Suman [facility] PHOSPHORUS 2020-05-16 04:42:00 [facility] MAGNESIUM 2020-05-16 04:42:00 [facility] CBC W/PLT COUNT & AUTO 2020-05-15 05:09:00 JeriHieu vazquez [facility] BASIC METABOLIC PANEL (7) 2020-05-15 05:09:00 Hieu Wilcox CH, I [facility] PTH, INTACT 2020-05-15 05:09:00 [facility] CALCIUM, IONIZED 2020-05-15 05:09:[facility] 2020-05-15 05:09:00 Suman [facility] MAGNESIUM 2020-05-15 05:09:00 Suman, [facility] CBC W/PLT COUNT & AUTO 2020-05-14 04:32:00 Hieu Wilcox [facility] BASIC METABOLIC PANEL (7) 2020-05-14 04:32:00 Hieu Wilcox CH, I [facility] CALCIUM, IONIZED 2020-05-14 04:32:00 [facility] 2020-05-14 04:32:00 Suman [facility] MAGNESIUM 2020-05-14 04:32:00 [facility] CBC W/PLT COUNT & AUTO 2020-05-13 04:51:00 Hieu Wilcox [facility] BASIC METABOLIC PANEL (7) 2020-05-13 04:51:00 Hieu Wilcox [facility] CBC W/PLT COUNT & AUTO 2020-05-12 05:59:[address] [facility] BASIC METABOLIC PANEL (7) 2020-05-12 05:59:00 Julianne Davis [facility] BASIC METABOLIC PANEL (7) 2020-05-10 04:27:00 Hieu Wilcox CH, I [facility] MAGNESIUM 2020-05-10 04:27:00 Hieu Wilcox [facility] PHOSPHORUS 2020-05-10 04:27:00 Hieu Wilcox [facility] CBC W/PLT COUNT & AUTO 2020-05-10 04:27:00 Hieu Wilcox [facility] BLOOD CULTURE 2020-05-09 23:15:00 Jeri Hieu [facility] CT ABDOMEN/PELVIS WITHOUT 2020-05-09 19:59:00 Trimble, [facility] - IV CONTRAST [facility] URINE CULTURE 2020-05-09 17:50:00 Trimble, [facility] CBC W/PLT COUNT & AUTO 2020-05-09 17:50:00 Trimble, [facility] COMPREHENSIVE METABOLIC 2020-05-09 17:50:00 Trimble, [facility] - PANEL [facility] URINALYSIS W/ REFLEX 2020-05-09 17:50:00 Trimble, [facility] - URINE CULTURE [facility] SCREEN, URINE 2020-05-09 17:50:00 Trimble, [facility] BASIC METABOLIC PANEL (7) 2020-03-22 05:48:00 [facility] CBC W/PLT COUNT & AUTO 2020-03-22 03:53:00 [facility] SARS-COV2/RT-PCR ([facility] & 2020-03-21 18:31:00 PopatChekoeenydia Barnett [facility] W/PLT COUNT & AUTO 2020-03-21 04:22:00 [facility] BASIC METABOLIC PANEL (7) 2020-03-21 04:22:00 [facility] [place] FLUOR[place] NON-SPECIFIC UP 2020-03-20 14:37:[address] [facility] 1 [facility] STONE ANALYSIS 2020-03-20 14:04:05 Freddie Ayoub [facility] CYSTOSCOPY,URETEROSCOPY 2020-03-20 09:35:00 Freddie Ayoub [facility] CBC W/PLT COUNT & AUTO 2020-03-20 04:48:00 [facility] BASIC METABOLIC PANEL (7) 2020-03-20 04:48:00 [facility] HCG, QUANTITATIVE, 2020-03-19 00:58:[address] [facility] SARS-COV2/RT-PCR ([facility] & 2020-03-18 22:05:00 RadhaMarvin addison [facility] - REF LABS) [facility] SCREEN, URINE 2020-03-17 05:32:00 Elisa Manzanares [facility] CBC W/PLT COUNT & AUTO 2020-03-17 03:36:00 [facility] BASIC METABOLIC PANEL (7) 2020-03-17 03:36:00 [facility] CBC W/PLT COUNT & AUTO 2020-03-16 04:00:00 [facility] BASIC METABOLIC PANEL (7) 2020-03-16 04:00:00 [facility] CBC W/PLT COUNT & AUTO 2020-03-15 06:00:00 [facility] BASIC METABOLIC PANEL (7) 2020-03-15 06:00:00 [facility] PT/APTT 2020-03-15 06:00:00 [facility] SARS-COV2/RT-PCR ([facility] & 2020-03-14 16:24:00 Popat, [facility] - REF LABS) [facility] SCREEN, URINE 2020-03-14 16:24:00 Popat, Chekoeeya Camilo h [facility] CBC W/PLT COUNT & AUTO 2020-03-13 05:19:00 Yazmin Escamilla [facility] BASIC METABOLIC PANEL (7) 2020-03-13 05:19:00 Yazmin Escamilla sa [facility] TRANSFUSION SERVICE 2020-03-12 18:03:00 Provider, Default [facility] REPORT - SCAN Scanning [facility] BASIC METABOLIC PANEL (7) 2020-03-12 04:12:00 Yazmin Escamilla [facility] CBC W/PLT COUNT & AUTO 2020-03-12 04:08:00 Yazmin Escamilla [facility] URINE CULTURE 2020-03-11 09:58:00 Freddie Ayoub [facility] URINALYSIS W/ MICROSCOPIC 2020-03-11 09:58:00 Jody Ayoubm Ruby spear [facility] CBC W/PLT COUNT & AUTO 2020-03-11 04:57:00 Yazmin Escamilla [facility] BASIC METABOLIC PANEL (7) 2020-03-11 04:57:00 Yazmin Escamilla [facility] PROTHROMBIN TIME/INR 2020-03-11 04:57:00 Yazmin Escamilla [facility] TYPE AND SCREEN, 2020-03-11 04:57:00 Yazmin Escamilla [facility] AUTOMATED [facility] BLOOD CULTURE 2020-03-11 00:22:00 Yazmin Escamilla [facility] US RENAL COMPLETE 2020-03-10 22:15:00 Sunny Del Castillo [facility] SARS-COV2/RT-PCR ([facility] & 2020-03-10 21:43:00 Sunny Del Castillo [facility] - REF LABS) [facility] LACTIC ACID, VENOUS 2020-03-10 18:51:00 Sunny Del Castillo [facility] XR ABDOMEN / KUB 1 VIEW 2020-03-10 18:32:00 Sunny Del Castillo [facility] XR CHEST 1 VIEW 2020-03-10 18:32:00 Sunny Del Castillo [facility] PORTABLE/BEDSIDE Medical Center URINE CULTURE 2020-03-10 17:25:00 Sunny Del Castillo [facility] CBC W/PLT COUNT & AUTO 2020-03-10 17:25:00 Sunny Del Castillo [facility] BASIC METABOLIC PANEL (7) 2020-03-10 17:25:00 Sunny Del Castillo [facility] URINALYSIS W/ REFLEX 2020-03-10 17:25:00 Sunny Del Castillo [facility] URINE CULTURE [facility] SCREEN, URINE 2020-03-10 17:25:00 Sunny Del Castillo [facility] COMPREHENSIVE METABOLIC 2020-03-10 17:25:00 Yazmin Escamilla [facility] RHYTHM STRIP - SCAN 2020-02-26 13:30:21 Provider, Default [facility] BASIC METABOLIC PANEL (7) 2020-02-25 04:01:00 Arnulfo Iraheta In [facility] CBC W/PLT COUNT & AUTO 2020-02-25 04:01:00 Arnulfo Iraheta In [facility] MAGNESIUM 2020-02-25 04:01:00 Arnulfo Iraheta In [facility] BASIC METABOLIC PANEL (7) 2020-02-24 03:59:00 Arnulfo Iraheta In [facility] CBC W/PLT COUNT & AUTO 2020-02-24 03:59:00 Arnulfo Iraheta In [facility] MAGNESIUM 2020-02-24 03:59:00 Arnulfo Iraheta In [facility] TRANSFUSION SERVICE 2020-02-23 18:12:34 Provider, Default [facility] REPORT SCAN [facility] BASIC METABOLIC PANEL (7) 2020-02-23 06:14:00 Arnulfo Iraheta In [facility] CBC W/PLT COUNT & AUTO 2020-02-23 06:14:00 Arnulfo Iraheta In [facility] MAGNESIUM 2020-02-23 06:14:00 Arnulfo Iraheta In [facility] VITAMIN D, 25-HYDROXY 2020-02-23 06:14:00 Arnulfo Iraheta In [facility] TSH/FREE T4 IF INDICATED 2020-02-23 06:14:00 Arnulfo Iraheta In [facility] C. DIFFICILE GDH TOXIN 2020-02-22 13:38:00 Arnulfo Iraheta In [facility] STOOL CULTURE + SHIGA 2020-02-22 13:38:00 Arnulfo Iraheta In [facility] TOXIN [facility] PANCREATIC ELASTASE, 2020-02-22 13:38:00 Arnulfo Iraheta In [facility] FECAL [facility] FECAL FAT, QUANTITATIVE 2020-02-22 13:38:00 Arnulfo Iraheta In [facility] STOOL PATH CHARGE 2020-02-22 13:38:00 Arnulfo Iraheta In [facility] ABORH, MANUAL 2020-02-22 05:12:00 Mary Ann Holcomb [facility] PROTHROMBIN TIME/INR 2020-02-22 04:02:[address] [facility] APTT 2020-02-22 04:02:00 Kurt Lin [facility] MAGNESIUM 2020-02-22 04:02:00 Arnulfo Iraheta In [facility] BASIC METABOLIC PANEL (7) 2020-02-22 04:02:00 Ra pedro Lin [facility] CBC W/PLT COUNT & AUTO 2020-02-22 04:02:00 Kurt Lin [facility] TYPE AND SCREEN, 2020-02-22 04:02:00 Kurt Lin [facility] [place] BEEF PUSHER IN OR 30 2020-02-22 00:03:00 Freddie Ayoub [facility] SURGICALLY OBTAINED 2020-02-21 23:39:28 Freddie Ayoub CH I [facility] - CULTURE + GRAM STAIN Medical Emir ter SURGICALLY OBTAINED 2020-02-21 23:29:32 Freddie Ayoub CH I [facility] - CULTURE + GRAM STAIN Medical Emir ter SURGICALLY OBTAINED 2020-02-21 23:27:51 Freddie Ayoub CH I [facility] - CULTURE + GRAM STAIN [facility] CYSTOSCOPY,INSERTION 2020-02-21 22:41:00 Freddie Ayoub [facility] URETERAL STENTS [facility] BLOOD CULTURE 2020-02-21 19:42:00 Arnulfo Iraheta In [facility] CBC W/PLT COUNT & AUTO 2020-02-21 19:37:00 Arnulfo Iraheta In [facility] COMPREHENSIVE METABOLIC 2020-02-21 19:37:00 MyrtleArnulfo In [facility] PT/APTT 2020-02-21 19:37:00 Myrtle Rubymarko In [facility] LACTIC ACID, VENOUS 2020-02-21 19:37:00 Ruby Irahetamarko In [facility] BLOOD CULTURE 2020-02-21 19:36:00 MyrtleArnulfo In [facility] URINE CULTURE 2020-02-21 19:25:00 Ruby Irahetamarko In [facility] URINALYSIS W/ REFLEX 2020-02-21 19:25:00 Arnulfo Iraheta In [facility] URINE CULTURE [facility] SCREEN, URINE 2020-02-21 19:25:00 Kurt Lin [facility] SARS-COV2/RT-PCR ([facility] & 2020-02-21 18:55:00 Kishor Lin [facility] REF LABS) [facility] Plan of Care Planned Activity Planned Date Details Comments Source Future Scheduled 2020-07-15 [address] [facility] - Test 00:00:00 (12+) [code = [facility] DEPRESSION SCREENING (12+)] Future Scheduled 2002 Screening for [facility] - Test 00:00:00 malignant neoplasm of [facility] cervix (procedure) [code = 900375462] Encounters Start End Encounter Admission Attending Care Care Encounter Source Date/Time Date/Time Type Type Clinicians Facility Department ID 2020-08-17 2020-08-17 Outpatient MHSE PUL [id number] [facility] 15:52:00 15:52:[address] [facility] 2019-05-07 2019-05-07 Outpatient HUY JAQUEZ RAD [id number] 23:59:00 JAMEY [facility] 2019-03-21 2019-03-21 Emergency Scotty [facility] [id number] 06:46:08 09:09:00 Wily Mar [id number] [place] [id number] [place] [id number] Results Test Description Test Time Test Comments Results Result Comments Source Blood Culture - Routine (Right Venipuncture) 2020-06-27 22:0 0:00 Test Item Value Reference Range Interpretation Comme nts Result (test code = 6463-4) No growth in 5 days [facility] [id number] 22:00:00 Test Item Value Reference Range Interpretation Comments CULTURE (BEAKER) (test No growth in 5 days code = 1095) BLOOD [id number] 21:01:00 Test Item Value Reference Range Interpretation Comments CULTURE (BEAKER) (test No growth in 5 days code = 1095) Urine [id number] 12:13:00 Test Item Value Reference Range Interpretation Comments Result (test code = 6463-4) No growth [facility] [id number] 12:13:00 Test Item Value Reference Range Interpretation Comments CULTURE (BEAKER) (test code = 1095) No growth Basic Metabolic [id number] 07:20:00 Test Item Value Reference Range Interpretation Comments Sodium (test code = 136 meq/L 581-996 6935-2) Potassium (test code = 4.7 meq/L 3.5-5.1 Speci men slightly 2823-3) hemolyzed Chloride (test code = 109 meq/L 98-107 H 2075-0) CO2 (test code = 17 meq/L 22-29 L 2028-9) BUN (test code = 31 mg/dL 7-21 H 3094-0) Creatinine (test code 1.33 mg/dL 0.57-1.25 H Specim en slightly = 2160-0) hemolyzed Glucose (test code = 86 mg/dL 70-105 2345-7) Calcium (test code = 9.2 mg/dL 8.4-10.2 56327-2) EGFR (test code = 54 mL/min/1.73 [place] [address]-9) NOT ACCURATE CREATININE CLEARANCE IN PREDICTING GLOMERULAR FILTRATION RATE . ESTIMATED GFR I S NOT APPLICABLE FOR DIALYSIS PATIENTS. ELADIA (test code = ELADIA) Sausage Grinder ID - PIAYA L Lab Interpretation Abnormal (test code = 63869-0) [facility] [id number] 07:20:00 Test Item Value Reference Range Interpretation Comments SODIUM (BEAKER) 136 meq/L 136-145 (test code = 381) POTASSIUM (BEAKER) 4.7 meq/L 3.5-5.1 Specimen slightly (test code = 379) hemolyzed CHLORIDE (BEAKER) 109 meq/L 98-107 H (test code = 382) CO2 (BEAKER) (test 17 meq/L 22-29 L code = 355) BLOOD UREA NITROGEN 31 mg/dL 7-21 H (BEAKER) (test code = 354) CREATININE (BEAKER) 1.33 mg/dL 0.57-1.25 H Specimen slightly (test code = 358) hemolyzed GLUCOSE RANDOM 86 mg/dL 70-105 (BEAKER) (test code = 652) CALCIUM (BEAKER) 9.2 mg/dL 8.4-10.2 (test code = 697) EGFR (BEAKER) (test 54 mL/min/1.73 ESTIMA RYANNE GFR IS code = 1092) sq m NOT ACCURATE CREATININE CLEARANCE IN PREDICTING GLOMERULAR FILTRATION RATE . ESTIMATED GFR I S NOT APPLICABLE FOR DIALYSIS PATIEN TS. Sausage Grinder ID - PIAYA LCBC with platelet count + automated [id number] 06:59:00 Test Item Value Reference Range Interpretation Comments WBC (test code = 6690-2) 4.3 See_Comment [A utomated message] The system [employer] generated this result transmitted ref erence range: 3.5 - 10 .5 K/L. The refe rence range was not u sed to interpret this result as normal/abnor mal. RBC (test code = 789-8) 4.16 See_Comment [Au tomated message] The system [employer] generated this result transmitted ref erence range: 3.93 - 5 .22 M/L. The refe rence range was not u sed to interpret this result as normal/abnor mal. MCHC (test code = 786-4) 29.6 See_Comment L [A utomated message] The system [employer] generated this result transmitted ref erence range: 32.2 - 3 5.5 GM/DL. The refe rence range was not u sed to interpret this result as normal/abnor mal. Hematocrit (test code = 31.1 % 34.1-44.9 L 4544-3) MCV (test code = 787-2) 74.8 fL 79.4-94.8 L MCH (test code = 785-6) 22.1 pg 25.6-32.2 L RDW (test code = 788-0) 16.0 % 11.7-14.4 H Platelets (test code = 327 See_Comment [Aut omated message] 777-3) The system [employer] generated this result transmitted ref erence range: 150 - 45 0 K/CU MM. The referen ce range was not u sed to interpret this result as normal/abnor mal. MPV (test code = 10.8 fL 9.4-12.3 08729-5) nRBC (test code = 413) 0 See_Comment [Aut omated message] The system [employer] generated this result transmitted ref erence range: 0 - 0 /1 00 WBC. The refere nce range was not u sed to interpret this result as normal/abnor mal. % Neutros (test code = 64 % 429) % Lymphs (test code = 22 % 430) % Monos (test code = 13 % 431) % Eos (test code = 432) 0 % % Baso (test code = 437) 0 % # Neutros (test code = 2.72 See_Comment [Aut omated message] 670) The system [employer] generated this result transmitted ref erence range: 1.56 - 6 .13 K/L. The refe rence range was not u sed to interpret this result as normal/abnor mal. # Lymphs (test code = 0.95 See_Comment L [Auto mated message] 414) The system [employer] generated this result transmitted ref erence range: 1.18 - 3 .74 K/L. The refe rence range was not u sed to interpret this result as normal/abnor mal. # Monos (test code = 0.56 See_Comment H [Autom ated message] 415) The system [employer] generated this result transmitted ref erence range: 0.24 - 0 .36 K/L. The refe rence range was not u sed to interpret this result as normal/abnor mal. # Eos (test code = 416) 0.00 See_Comment L [Au tomated message] The system [employer] generated this result transmitted ref erence range: 0.04 - 0 .36 K/L. The refe rence range was not u sed to interpret this result as normal/abnor mal. # Baso (test code = 417) 0.00 See_Comment L [A utomated message] The system [employer] generated this result transmitted ref erence range: 0.01 - 0 .08 K/L. The refe rence range was not u sed to interpret this result as normal/abnor mal. Immature 1 % 0-1 Granulocytes-Relative (test code = 2801) Lab Interpretation (test Abnormal code = 20303-0) [facility] W/PLT COUNT & AUTO [id number] 06:59:00 Test Item Value Reference Range Interpretation Comments WHITE BLOOD CELL COUNT (BEAKER) 4.3 K/ L 3.5-10.5 (test code = 775) RED BLOOD CELL COUNT (BEAKER) 4.16 M/ L 3.93-5.22 (test code = 761) HEMOGLOBIN (BEAKER) (test code = 9.2 GM/DL 11.2-15.7 L 410) HEMATOCRIT (BEAKER) (test code = 31.1 % 34.1-44.9 L 411) MEAN CORPUSCULAR VOLUME (BEAKER) 74.8 fL 79.4-94.8 L (test code = 753) MEAN CORPUSCULAR HEMOGLOBIN 22.1 pg 25.6-32.2 L (BEAKER) (test code = 751) MEAN CORPUSCULAR HEMOGLOBIN CONC 29.6 GM/DL 32.2-35.5 L (BEAKER) (test code = 752) RED CELL DISTRIBUTION WIDTH 16.0 % 11.7-14.4 H (BEAKER) (test code = 412) PLATELET COUNT (BEAKER) (test 327 K/CU MM 150-450 code = 756) MEAN PLATELET VOLUME (BEAKER) 10.8 fL 9.4-12.3 (test code = 754) NUCLEATED RED BLOOD CELLS 0 /100 WBC 0-0 (BEAKER) (test code = 413) NEUTROPHILS RELATIVE PERCENT 64 % (BEAKER) (test code = 429) LYMPHOCYTES RELATIVE PERCENT 22 % (BEAKER) (test code = 430) MONOCYTES RELATIVE PERCENT 13 % (BEAKER) (test code = 431) EOSINOPHILS RELATIVE PERCENT 0 % (BEAKER) (test code = 432) BASOPHILS RELATIVE PERCENT 0 % (BEAKER) (test code = 437) NEUTROPHILS ABSOLUTE COUNT 2.72 K/ L 1.56-6.13 (BEAKER) (test code = 670) LYMPHOCYTES ABSOLUTE COUNT 0.95 K/ L 1.18-3.74 L (BEAKER) (test code = 414) MONOCYTES ABSOLUTE COUNT (BEAKER) 0.56 K/ L 0.24-0.36 H (test code = 415) EOSINOPHILS ABSOLUTE COUNT 0.00 K/ L 0.04-0.36 L (BEAKER) (test code = 416) BASOPHILS ABSOLUTE COUNT (BEAKER) 0.00 K/ L 0.01-0.08 L (test code = 417) IMMATURE GRANULOCYTES-RELATIVE 1 % 0-1 PERCENT (BEAKER) (test code = 2801) FL, FLUORO, NON-SPECIFIC, UP TO 1 [id number] 21:57:00Reason for exam:- >[facility] : 1980 Sex: FFluoroscopic unit utilized for a procedure performed in the OR. No interpretation was requested. Refer to the operative report for findings. Refer to PACS for patient radiation dose information.FL fluoro non-specific up to 1 [id number] 21:57:00 Interface, External Ris In 06/23/2020 10:00 PM CSTFluoroscopic unit utilized for a procedure performed in the OR. No interpretation was requested. Refer to the operative report for findings. Referto PACS for patient radiation dose information.[facility] 2020-06-23 14:52:00 Test Item Value Reference Range Interpretation Comments SARS-COV2/RT-PCR Negative Not Detected, (test code = Negative, See 65453-8) external report for linked test SARS-COV-2 [facility] PERFORMING LAB (test code = 63444-2) ELADIA (test code = Negative result for this ELADIA) test determines that SARS-CoV-2 RNA was not [...] of the Act. Fact Sheet for Healthcare Providers:https://www.[employer].MyStream/sites/default/f renate/product/documents/F act_Sheet_HC_Providers_L yyc_RJDI-TiX-0.pdf Fact Sheet for Healthcare Patients:https://www.[employer].MyStream/sites/default/fi les/product/documents/Fa ct_Sheet_Patients_Lyra_S ARS-CoV-2.pdf Performing Laboratory:[facility] [place] [address] [facility] ([facility])2020-06-23 14:52:00 Test Item Value Reference Range Interpretation Comments SARS-COV2/RT-PCR (test Negative Not Detected, Negative, code = 2889206) See external report for linked test SARS-COV-2 PERFORMING LAB [facility] (test code = 2494270) Negative result for this test determines that [...] 564(g) of the Act.Fact Sheet for Healthcare Providers:https://www.[employer].MyStream/sites/default/files/product/documents/Fact_Shee k_UE_Iwcgvrmoq_Tdkm_HFZQ-OlI-0.pdfFact Sheet for Healthcare Patients:https://www.[employer].MyStream/sites/default/files/product/ documents/Vibq_Rybka_Tbhlxood_Cwai_KFXA-KqY-0.pdfPerforming Laboratory:[facility], [place] [address]OYUJK METABOLIC PANEL 2020-06-23 14:33:00 Test Item Value Reference Range Interpretation Comments SODIUM (BEAKER) 136 meq/L 136-145 (test code = 381) POTASSIUM (BEAKER) 4.6 meq/L 3.5-5.1 (test code = 379) CHLORIDE (BEAKER) 107 meq/L 98-107 (test code = 382) CO2 (BEAKER) (test 19 meq/L 22-29 L code = 355) BLOOD UREA NITROGEN 29 mg/dL 7-21 H (BEAKER) (test code = 354) CREATININE (BEAKER) 1.35 mg/dL 0.57-1.25 H (test code = 358) GLUCOSE RANDOM 93 mg/dL 70-105 (BEAKER) (test code = 652) CALCIUM (BEAKER) 9.3 mg/dL 8.4-10.2 (test code = 697) EGFR (BEAKER) (test 53 mL/min/1.73 ESTIMA RYANNE GFR IS code = 1092) sq m NOT ACCURATE CREATININE CLEARANCE IN PREDICTING GLOMERULAR FILTRATION RATE . ESTIMATED GFR I S NOT APPLICABLE FOR DIALYSIS PATIEN TS. Sausage Grinder ID - [place]OL[place] FCBC W/PLT COUNT & AUTO [id number] 06:10:00 Test Item Value Reference Range Interpretation Comments WHITE BLOOD CELL COUNT (BEAKER) 3.0 K/ L 3.5-10.5 L (test code = 775) RED BLOOD CELL COUNT (BEAKER) 4.23 M/ L 3.93-5.22 (test code = 761) HEMOGLOBIN (BEAKER) (test code = 9.5 GM/DL 11.2-15.7 L 410) HEMATOCRIT (BEAKER) (test code = 31.5 % 34.1-44.9 L 411) MEAN CORPUSCULAR VOLUME (BEAKER) 74.5 fL 79.4-94.8 L (test code = 753) MEAN CORPUSCULAR HEMOGLOBIN 22.5 pg 25.6-32.2 L (BEAKER) (test code = 751) MEAN CORPUSCULAR HEMOGLOBIN CONC 30.2 GM/DL 32.2-35.5 L (BEAKER) (test code = 752) RED CELL DISTRIBUTION WIDTH 15.8 % 11.7-14.4 H (BEAKER) (test code = 412) PLATELET COUNT (BEAKER) (test 270 K/CU MM 150-450 code = 756) MEAN PLATELET VOLUME (BEAKER) 9.1 fL 9.4-12.3 L (test code = 754) NUCLEATED RED BLOOD CELLS 0 /100 WBC 0-0 (BEAKER) (test code = 413) NEUTROPHILS RELATIVE PERCENT 73 % (BEAKER) (test code = 429) LYMPHOCYTES RELATIVE PERCENT 23 % (BEAKER) (test code = 430) MONOCYTES RELATIVE PERCENT 3 % (BEAKER) (test code = 431) EOSINOPHILS RELATIVE PERCENT 0 % (BEAKER) (test code = 432) BASOPHILS RELATIVE PERCENT 0 % (BEAKER) (test code = 437) NEUTROPHILS ABSOLUTE COUNT 2.19 K/ L 1.56-6.13 (BEAKER) (test code = 670) LYMPHOCYTES ABSOLUTE COUNT 0.69 K/ L 1.18-3.74 L (BEAKER) (test code = 414) MONOCYTES ABSOLUTE COUNT (BEAKER) 0.08 K/ L 0.24-0.36 L (test code = 415) EOSINOPHILS ABSOLUTE COUNT 0.01 K/ L 0.04-0.36 L (BEAKER) (test code = 416) BASOPHILS ABSOLUTE COUNT (BEAKER) 0.01 K/ L 0.01-0.08 (test code = 417) IMMATURE GRANULOCYTES-RELATIVE 1 % 0-1 PERCENT (BEAKER) (test code = 2801) [id number] 05:14:00 Test Item Value Reference Range Interpretation Comments Magnesium (test code = 1.8 mg/dL 1.6-2.6 00224-6) ELADIA (test code = ELADIA) Sausage Grinder ID - TRISH M Lab Interpretation (test Normal code = 31752-1) [facility] 05:14:00 Test Item Value Reference Range Interpretation Comments Phosphorus (test code = 3.9 mg/dL 2.3-4.7 2777-1) ELADIA (test code = ELADIA) Sausage Grinder ID - TRISH M Lab Interpretation (test Normal code = 62346-5) [facility] [id number] 05:14:00 Test Item Value Reference Range Interpretation Comments SODIUM (BEAKER) 137 meq/L 136-145 (test code = 381) POTASSIUM (BEAKER) 4.6 meq/L 3.5-5.1 (test code = 379) CHLORIDE (BEAKER) 110 meq/L 98-107 H (test code = 382) CO2 (BEAKER) (test 17 meq/L 22-29 L code = 355) BLOOD UREA NITROGEN 28 mg/dL 7-21 H (BEAKER) (test code = 354) CREATININE (BEAKER) 1.52 mg/dL 0.57-1.25 H (test code = 358) GLUCOSE RANDOM 105 mg/dL 70-105 (BEAKER) (test code = 652) CALCIUM (BEAKER) 9.4 mg/dL 8.4-10.2 (test code = 697) EGFR (BEAKER) (test 46 mL/min/1.73 ESTIMA RYANNE GFR IS code = 1092) sq m NOT ACCURATE CREATININE CLEARANCE IN PREDICTING GLOMERULAR FILTRATION RATE . ESTIMATED GFR I S NOT APPLICABLE FOR DIALYSIS PATIEN TS. Sausage Grinder ID - TRISH [id number] 05:14:00 Test Item Value Reference Range Interpretation Comments MAGNESIUM (BEAKER) (test code = 1.8 mg/dL 1.6-2.6 627) Sausage Grinder ID - TRISH [id number] 05:14:00 Test Item Value Reference Range Interpretation Comments PHOSPHORUS (BEAKER) (test code = 3.9 mg/dL 2.3-4.7 604) Sausage Grinder ID - TRISH MCT, [id number] 01:27:00Unlisted Reason for Exam - Click Yes and Enter Reason Below->No [facility] ERROL RANJAN : 1980 Sex: FFINAL REPORT CT, ABDOMEN \\T\\ PELVIS, WITHOUT IV CONTRAST CLINICAL HIST ORY: Flank pain, kidney stone suspected Technique: Multiple axial images of the abdomen and pelvis were performed without contrast. Coronal and sagittal reformats obtained. Oral contrast was not administered. This exam was performed according to our departmental dose-optimization program, which includes automated exposure control, adjustment of the mA and/or kV according to patient size and/or use ofthe iterative reconstruction technique. COMPARISON: 05/16/2020 FINDINGS:LOWER CHEST:Bibasilar pleural-parenchymal opacities. LIVER: Hepatomegaly with nodular liver contour and heterogeneous attenuation.BILIARY SYSTEM: Cholelithiasis and distended gallbladder. No intrahepatic biliary ductal dilatation.PANCREAS: No acute findings. SPLEEN: Splenomegaly, 21 cm.ADRENAL GLANDS: Unremarkable.KIDNEYS URETERS:Moderate hydroureteronephrosis with right mid ureter 5 mm calculus and additional distal ureter 3 mmcalculus. Numerous bilateral renal calculi measuring up to 5 mm are noted. Left kidney double-J ureteral stent with proximal loop within the proximal left ureter noted.URINARY BLADDER: Minimal gas within the urinary bladder. Contains left ureteral stent with redundancy.REPRODUCTIVE ORGANS: Left adnexal 2.9 cm cyst, almost certainly benign for which no further imaging workup is recommended. GASTROINTES TINAL/MESENTERY: No bowel obstruction or abnormal wall thickening. PERITONEUM/RETROPERITONEUM: No free air or free fluid VESSELS: No acute findings. LYMPH NODES: Suspected retroperitoneal lymphadenopathy is indistinguishable from varicosities in the absence of IV contrast administration.SOFT TISSUES:Small fat-containing periumbilical hernia. Mild anasarca.BONES: No suspicious osseous lesion. Other:None IMPRESSION:ABSENCE OF INTRAVENOUS CONTRAST DECREASES SENSITIVITY FOR DETECTION OF FOCAL LESIONS AND VASCULAR PATHOLOGY. New moderate right hydroureteronephrosis due to obstructing right mid ureter 5 mm calculus. Additional distal right 3 mm ureterolith and numerous bilateral nephroliths. Left ureteral double-J stent with proximal pigtail loop located within the proximal left ureter is not significantly changed. Hepatosplenomegaly. Cirrhotic liver morphology. Cholelithiasis. Nonspecific retroperitoneal lymphadenopathy. Correlate for lymphoproliferative disease. Bilateral basal pulmonary opacities, possibly atelectasis or scarring but infection not excluded. Signed: Ky Russell MDReport Verified Date/Time: 06/23/2020 01:27:10 [facility]/pelvis without iv [id number] 01:27:00 Interface, External Ris In - 06/23/2020 1:[address], ABDOMEN \\T\\ PELVIS, WITHOUT IV CONTRAST CLINICAL HISTORY: Flank pain, kidney stone suspected Technique: Multiple axial images of the abdomen and pelvis were performed without contrast. Coronal and sagittal reformats obtained. Oral contrast was not administered. This exam was performed according to our departmental dose-optimization program, which includes automated exposure control, adjustment of the mA and/or kV according to patient size and/or use of the iterative reconstruction technique. COMPARISON: 05/16/2020 FINDINGS:LOWER CHEST:Bibasilar pleural-parenchymal opacities. LIVER: Hepatomegaly with nodular liver contour and heterogeneous attenuation.BILIARY SYSTEM: Cholelithiasis and distended gallbladder.No intrahepatic biliary ductal dilatation.PANCREAS: No acute findings. SPLEEN: Splenomegaly, 21 cm.ADRENAL GLANDS: Unremarkable.KIDNEYS URETERS: Moderate hydroureteronephrosis with right mid ureter 5 mm calculus and additional distal ureter 3 mm calculus. Numerous bilateral renal calculi measuring up to 5 mm are noted. Left kidney double-J ureteral stent with proximal loop within the proximal left ureter noted.URINARY BLADDER: Minimal gas within the urinary bladder. Contains left ureteral stent with redundancy.REPRODUCTIVE ORGANS: Left adnexal 2.9 cm cyst, almost certainly benign for which no further imaging workup is recommended. GASTROINTESTINAL/MESENTERY: No bowel obstruction or abnormal wall thickening. PERITONEUM/RETROPERITONEUM: No free air or free fluid VESSELS: No acute findings. LYMPH NODES: Suspected retroperitoneal lymphadenopathy is indistinguishable from varicosities in the absenceof IV contrast administration.SOFT TISSUES: Small fat-containing periumbilical hernia. Mild anasarca.BONES: No suspicious osseous lesion. Other: None IMPRESSION:ABSENCE OF INTRAVENOUS CONTRAST DECREASES SENSITIVITY FOR DETECTION OF FOCAL LESIONS AND VASCULAR PATHOLOGY. New moderate right hydroureteronephrosis due to obstructing right mid ureter 5 mm calculus. Additional distal right 3 mm ureterolithand numerous bilateral nephroliths. Left ureteral double-J stent with proximal pigtail loop located within the proximal left ureter is not significantly changed. Hepatosplenomegaly. Cirrhotic liver morphology. Cholelithiasis. Nonspecific retroperitoneal lymphadenopathy. Correlate for lymphoproliferative disease. Bilateral basal pulmonary opacities, possibly atelectasis or scarring but infection not excluded. Signed: Ky Russell MDReport Verified Date/Time: 06/23/2020 01:27:10 Electronicallysigned by: KY RUSSELL MD on 06/23/2020 01:27 [facility] 2020-06-22 21:39:00 Test Item Value Reference Range Interpretation Comments Preg Test, Ur (test code = 2112-1) Negative [facility], [id number] 21:39:00 Test Item Value Reference Range Interpretation Comments TEST URINE (BEAKER) (test Negative code = 583) Urinalysis w/Microscopic + Reflex to [id number] 21:35:00 Test Item Value Reference Range Interpretation Comments Color, UA (test code Red = 5778-6) Clarity, UA (test Cloudy code = 5767-9) Specific [place], UA 1.018 1.001-1.035 (test code = 5811-5) pH, UA (test code = 6.5 5.0-8.0 5803-2) Protein, UA (test 200 mg/dL Negative A code = 95438-4) Glucose, UA (test Negative Negative code = 365) Ketones, UA (test Negative Negative code = 2514-8) Bilirubin, UA (test Negative Negative code = 33946-8) Blood, UA (test code Large Negative A = 85356-0) Nitrite, UA (test Negative Negative code = 5802-4) Leukocytes, UA (test Large Negative A code = 5799-2) Urobilinogen, UA 0.2 mg/dL 0.2-1 (test code = 01308-0) RBC, UA (test code = 3668 See_Comment [Autom ated 16674-4) message] The system which generated this result transmit ryanne reference range : /HPF. The reference range was not used to interpret this result as normal/abnormal . WBC, UA (test code = 73 See_Comment [Autom ated 5821-4) message] The system which generated this result transmit ryanne reference range : /HPF. The reference range was not used to interpret this result as normal/abnormal . Specimen Source (test code = 2795) ELADIA (test code = ELADIA) Sausage Grinder ID - [auto]Sausage Grinder ID - tech Lab Interpretation Abnormal (test code = 37058-6) [facility] URINE [id number] 21:35:00 Test Item Value Reference Range Interpretation Comments COLOR (BEAKER) (test code = 470) Red CLARITY (BEAKER) (test code = 469) Cloudy SPECIFIC GRAVITY UA (BEAKER) (test 1.018 1.001-1.035 code = 468) PH UA (BEAKER) (test code = 467) 6.5 5.0-8.0 PROTEIN UA (BEAKER) (test code = 200 mg/dL Negative A 464) GLUCOSE UA (BEAKER) [...] RBC UA (BEAKER) (test code = 519) 3668 /HPF WBC UA (BEAKER) (test code = 520) 73 /HPF SOURCE(BEAKER) (test code = 2795) Sausage Grinder ID - [auto]Sausage Grinder ID - techComprehensive metabolic [id number] 20:13:00 Test Item Value Reference Range Interpretation Comments Protein, Total (test 7.3 See_Comment [Autom ated code = 2885-2) message] The system which generated this result transmit ryanne reference range : 6.0 - 8.3 gm/dL . The reference range was not u sed to interpret th is result as normal/abnormal . Albumin (test code = 3.5 g/dL 3.5-5 01693-7) Alkaline Phosphatase 910 U/L 40-150 H (test code = 6768-6) Total Bilirubin (test 0.4 mg/dL 0.2-1.2 code = 1975-2) Sodium (test code = 135 meq/L 136-145 L 2951-2) Potassium (test code 4.1 meq/L 3.5-5.1 = 2823-3) Chloride (test code = 104 meq/L 98-107 2075-0) CO2 (test code = 22 meq/L 22-29 8-9) BUN (test code = 28 mg/dL 7-21 H 3094-0) Creatinine (test code 1.62 mg/dL 0.57-1.25 H = 2160-0) Glucose (test code = 88 mg/dL 70-105 2345-7) Calcium (test code = 10.3 mg/dL 8.4-10.2 H 36855-2) AST (test code = 28 U/L 5-34 1920-8) ALT (test code = 33 U/L 6-55 1742-6) EGFR (test code = 43 mL/min/1.73 [place] [address]-7) NOT ACCURATE CREATININE CLEARANCE IN PREDICTING GLOMERULAR FILTRATION RATE . ESTIMATED GFR I S NOT APPLICABLE FOR DIALYSIS PATIEN TS. ELADIA (test code = ELADIA) Sausage Grinder ID - BS Lab Interpretation Abnormal (test code = 18188-3) [facility] Center[facility]PRE[facility] MET[facility] [id number] 20:13:00 Test Item Value Reference Range Interpretation Comments TOTAL PROTEIN 7.3 gm/dL 6.0-8.3 (BEAKER) (test code = 770) ALBUMIN (BEAKER) 3.5 g/dL 3.5-5.0 (test code = 1145) ALKALINE PHOSPHATASE 910 U/L 40-150 H (BEAKER) (test code = 346) BILIRUBIN TOTAL 0.4 mg/dL 0.2-1.2 (BEAKER) (test code = 377) SODIUM (BEAKER) (test 135 meq/L 136-145 L code = 381) POTASSIUM (BEAKER) 4.1 meq/L 3.5-5.1 (test code = 379) CHLORIDE (BEAKER) 104 meq/L 98-107 (test code = 382) CO2 (BEAKER) (test 22 meq/L 22-29 code = 355) BLOOD UREA NITROGEN 28 mg/dL 7-21 H (BEAKER) (test code = 354) CREATININE (BEAKER) 1.62 mg/dL 0.57-1.25 H (test code = 358) GLUCOSE RANDOM 88 mg/dL 70-105 (BEAKER) (test code = 652) CALCIUM (BEAKER) 10.3 mg/dL 8.4-10.2 H (test code = 697) AST (SGOT) (BEAKER) 28 U/L 5-34 (test code = 353) ALT (SGPT) (BEAKER) 33 U/L 6-55 (test code = 347) EGFR (BEAKER) (test 43 mL/min/1.73 ESTIMA RYANNE GFR IS code = 1092) sq m NOT ACCURATE CREATININE CLEARANCE IN PREDICTING GLOMERULAR FILTRATION RATE . ESTIMATED GFR I S NOT APPLICABLE FOR DIALYSIS PATIEN TS. Sausage Grinder ID - BSCBC W/PLT COUNT & AUTO [id number] 19:59:00 Test Item Value Reference Range Interpretation Comments WHITE BLOOD CELL COUNT (BEAKER) 4.3 K/ L 3.5-10.5 (test code = 775) RED BLOOD CELL COUNT (BEAKER) 4.64 M/ L 3.93-5.22 (test code = 761) HEMOGLOBIN (BEAKER) (test code = 10.2 GM/DL 11.2-15.7 L 410) HEMATOCRIT (BEAKER) (test code = 34.4 % 34.1-44.9 411) MEAN CORPUSCULAR VOLUME (BEAKER) 74.1 fL 79.4-94.8 L (test code = 753) MEAN CORPUSCULAR HEMOGLOBIN 22.0 pg 25.6-32.2 L (BEAKER) (test code = 751) MEAN CORPUSCULAR HEMOGLOBIN CONC 29.7 GM/DL 32.2-35.5 L (BEAKER) (test code = 752) RED CELL DISTRIBUTION WIDTH 15.8 % 11.7-14.4 H (BEAKER) (test code = 412) PLATELET COUNT (BEAKER) (test 339 K/CU MM 150-450 code = 756) MEAN PLATELET VOLUME (BEAKER) 10.2 fL 9.4-12.3 (test code = 754) NUCLEATED RED BLOOD CELLS 0 /100 WBC 0-0 (BEAKER) (test code = 413) NEUTROPHILS RELATIVE PERCENT 62 % (BEAKER) (test code = 429) LYMPHOCYTES RELATIVE PERCENT 22 % (BEAKER) (test code = 430) MONOCYTES RELATIVE PERCENT 12 % (BEAKER) (test code = 431) EOSINOPHILS RELATIVE PERCENT 3 % (BEAKER) (test code = 432) BASOPHILS RELATIVE PERCENT 1 % (BEAKER) (test code = 437) NEUTROPHILS ABSOLUTE COUNT 2.64 K/ L 1.56-6.13 (BEAKER) (test code = 670) LYMPHOCYTES ABSOLUTE COUNT 0.94 K/ L 1.18-3.74 L (BEAKER) (test code = 414) MONOCYTES ABSOLUTE COUNT (BEAKER) 0.50 K/ L 0.24-0.36 H (test code = 415) EOSINOPHILS ABSOLUTE COUNT 0.12 K/ L 0.04-0.36 (BEAKER) (test code = 416) BASOPHILS ABSOLUTE COUNT (BEAKER) 0.02 K/ L 0.01-0.08 (test code = 417) IMMATURE GRANULOCYTES-RELATIVE 1 % 0-1 PERCENT (BEAKER) (test code = 2801) Tissue [id number] 06:24:00 Test Item Value Reference Range Interpretation Comments Case Report (test code Surgical Pathology = 104) Report Case: [id number] Authorizing Provider: Freddie Ayoub MD Collected: 05/17/2020 02:13 PM Ordering Location: [facility] Received: 05/18/2020 08:50 AM SERVICES Pathologist: Ralf Fajardo MD Specimens: A) - Explant, Left ureteral stent for gross ID B) - Explant, Right ureteral stent for gross ID DIAGNOSIS (test code = v9falJAeNUYjm0kgBXIlcOO 3220) uZzEwMzNcZnRuYmpcdWMxIH tccnRmMVxlcGljOTIwMFxhb xXdPQPcjFQkM3AsnwknQPko XD1uKF5scQmemVZhrHMxEJK fQhOgx9zgd072zXOnu7owIE PYkahilHj8gKlyX82zq1W2F fjuI24edQVvPHoiuJDaejad czIwIFBBUlQgQSBMRUZUIFV SLJZBYyZGWQWYWS5IUUZVXM 1PVkFMOlxwYXIgVVJFVEVSQ OtrM1XSEkMsCIpQA2IHQSGY PZqLX6QFIiDBUraBJYusGJC ccGFyIFBBUlQgQiBSSUdIVC BVUkVURVJBTCBTVEVOVCwgU gOCA3CERQeqySEzOCVCDNOR BeHNNQWXAC9RNUvZDc0YIvE KSWKHLa2UCJKlH29ZHGuigB RnFECrjq24ZCK6DgRuk4J4O TX3UXRtEFRqw2ghYNPjmELb ZzEwMzNcZnRuYmpcdWMxXGR qJiShs2jww560mPZtn0nbCE TpYtY6tEExJCKdlVSsC515X KVqPWzkj9opw5XjDDUzrMOo p7H3JWLZvuivyUe0hVxtB31 dz4E0WpsnT7iuTKGaQGCxH6 OmMI5kCBZbExr1NIH0SAW9G HGeTNMiI4OxRO8kJFRvsLKp FIh4h9soyUqfSGOpPSJ0w2b lUKajwlPgZL4dvt4ewJw9j3 xjczEgRGVmYXVsdCBQYXJhZ 2AubWonHs6zmIn1gBezIltw KVU7Dvy0XS1doj98mrl8hZy kTHIxhcnbJmQ8ZQbhTYAaxa iuOVf7UExtHZLiuYI8PBRxh JUhM6SqMBBzJS3trvr6RJS7 TIbpVZOmKaO2JIDpxHKkITE shPyzHTrjo920ZOI6WsGpBR 5qI8Gxt9U8sW4yiCFuQEPhs GKzGgYrCVVrvg3rkUEtNKus v8AaKZT2cpX5hFLslZYmARM rYmO4UOyiKK2bev22EFAxLH J6qm1ybYMpaPijfiXplSFiI DswW2WyKSHwc582RFSlA4Cq JXZmz9N9qaFpZmGyFFBubNQ 3unG3PIUrPA9kzaalf9pcRF soVUvpEMGkmtP9wcT6FFXas FFoY6AnxN8xLFHzCX0bfmnf x2lwWGQ3AVhkFSEoERN4HuM hCXWqj1Icmue0OjAme0JscC AtJBygL08ey372KJAbnzRoI 1xwbGFpblxwbGFpblxmMFxm mdA5LGOcIDzbblrrXECaXZs uQ2rdAlOyUWImzSijMHfgu3 NoXGYxXGZzMjJcdGFiXHRhY iq6PVCzyDIhQSRxCaMwU1kt hmuzOrASUWDas3heO0lafQY QwAOjC3ZrTAsgslKvJVjeTC ivHLRlETE5YM71HNhyBSBjj n19 CPT Code(s) (test code g9lhiLHiSSWgoUF4HnWtLLK = 3357) xo1ypl0FysAJjyMWwGUrnwI IkhsXvcw58vOZ5lV86EA9lJ MCvFgF0JWFyrlE1Fhy8DRAr KDVgkVIwE008r7igt9ztfoT kfDA2fTfqCKPiLTSwORvaKV ZzMjAgODgzMDBYMlxwYXJ9 CLINICAL HISTORY (test q8bfsFWzKNQokBK6OoLyLBL code = 3356) yx4psm9SwaEHjcFFxUKyroC XdwrVolr90xSW0fA58HS7fR XXqCfY6UNZdlgT1Otm8XWTb RBVecUWqV034l1rde3umgcC yjEC7aFhyBAQpNAHmMQgqLE XnStZzGINbb9KcWBoxS55pl 7elFeHrToOgJNipl9AdddQa cGFyfQ== SPECIMEN SOURCE (test a5ayiEGyISHvnUQ2TfVbRIP code = 3377) pr0fdn2QisVWotXAdPMhuaN IcgbPclr90oIX1zN26JD8bP LYeItH8UBRihzD3Zgf1QNLu EGPtaUZpJ428y7jtc1lgulA rwUI3rPnkNHBjPRYhUUhjKF ZzMjAgRXhwbGFudFxwYXJ9 GROSS DESCRIPTION n2udbPUaLDAwnYR6ZtVnIOR (test code = 3366) hl8igr8BeaVKggTBbCIhelC DgaqSofy66rCI2wY52VC9uW DDtSqX9XGBdgxH3Pxn9ARAy ISWcbKIdV404k4kds1malaM rjDR4xTmyJCRxWKVlOSdpIH UdVoBgJW7nWzRvAHf2ZZArK kFsx6ltrKUuUEqyPTI0lUSg KUYoNOWfLWWeVJ93G4HtypF zIIsvADErZFTtyH2uFD76aL MvusIvpsPbFzL8oLvxlxSzM EahFrFuzXGroUNdDDzhn5Ac ynIiOx0nEFyxj6GiAZiNPeN utcKlQHN0PJXlEKzlTKumqb z0oQU9UQNkGoVibYPtauLae GPuUUWlekZhzXMrBWB0ppLx PXVpRqD1sXAvXFdgnSgzUec sB8xpaJKsaP0yhdmyMJHaoj HlYLA0XKubf1mlTnjqzOJsI QWcj5f1IPAdBkJ4e5HibIO3 mINjdCpcn2G7LQZmFFG7bHX lLiBUaGlzIHBhcnQgaXMgZ3 Dtu5Ahv57poVDuqpAdI3Tqs 0QboKnmlN7erhNooBScCEBn GFUoz0CqXnfhEYOkeIYgPXJ lZEClM0UxxySsWFEmBKKwHM giAbOqRRTym6e1iZI3cDTrl OR5zWKinDhaRR4fqOAwEIVa P3Kcn2jdgcCrqT2jNRFsVL4 bLAQdvNArNZ51XYKmwUkusI D0kaJ7JVOeiAIzyQAwwUNbl 4SlI5Cje4IkLISaIMqfPRJa DjfaWIPiwPDmtgIqJV4nmDh maCPlWuGzU73vjF0uFDewtG Y3NMTeSna8BTYklD30cEB3w QRzw2sxPQZ3xQKyVSWkERYi HNeuo2qyGZLtvayoMR6nOGB ux0PmukOmPC2gqN67BY9lEC usgYwfnxMazQWoINTdfB7el XRzLiBUaGlzIHBhcnQgaXMg X3Jft2Rqm82fmZGocmDbA0Q oc0IapQnbeL9vytTkjICuQK WeKITrr2XjLkDWYq4ngAHym GFyfQ== Gross assessment was [facility] performed at ([facility], code = 2777) Department of Pathology, [address] [place] [address], Technical component [facility] was performed at ([facility], code = 2778) Department of Pathology, [address] [place] [address], Professional component [facility]. ke's was performed at ([facility], code = 2779) Department of Pathology, [address] [place] [address], [facility] CenterTISSUE [id number] 06:24:00Surgical Pathology Report Case: [id number] Authorizing Provider: Freddie Ayoub MD Collected: 05/17/2020 02:13 PM Ordering Location: [facility] Received: 05/18/2020 08:50 AM SERVICES Pathologist: Ralf Fajardo MD Specimens: A) - Explant, Left ureteral stent for gross ID B) -Explant, Right ureteral stent for gross ID PART A LEFT URETERALSTENT, REMOVAL:URETERAL STENT (GROSS DIAGNOSIS ONLY)PART B RIGHT URETERAL STENT, REMOVAL:URETERAL STENT (GROSS DIAGNOSIS ONLY) Signing Pathologist Direct Phone Line: [phone] signed by Ralf Fajardo MD on 05/25/2020 at 6:24 [id number] diagnosis: Renal stoneExplantA. Received fresh labeled with the patient's name, accession number and "explant, left ureteral stent for gross ID" is a 37 cm in length x 0.2 cm in diameter blue synthetic wire with black hashmarks, and a yellow firm deposit diffusely throughout the wire. This part is gross only and gross photographsare taken.B. Received fresh labeled with the patient's name, accession number and "explant, right ureteral stent for gross ID" is a 39.0 cm in length x 0.2 cm in diameter blue synthetic wire with blackhashmarks, and a scant amount of yellow firm deposits. This part is gross only and gross photographsare taken. SandyG/pl [facility], Department of Pathology, [address] [place] [address], [facility], [facility], [address] [place], [place] [id number], [facility], Department of Pathology, [address] [place] [address], VZAKP [id number] 02:56:00 Test Item Value Reference Range Interpretation Comments SPECIMEN RIGHT KIDNEY STONE SOURCE(Coradiant) (test code = 8130270) COMPONENT 1 See Below Calcium Oxalate (QUEST) (test Dihydrate code = 8020311) (Weddellite) 50% Calcium Monohyd rogen Phosphate Dihyd rate (Brushite)50% This test was develo ped and its analyti fabiola performance characteristics have been determined by [employer] [facility]. It has not been cl eared or approved by theA. This as say has been valida ryanne pursuant to the CLIA regulations and is used for clinic al purposes. COMPONENT 2 DNR (QUEST) (test code = 2498) Stone Weight 0.006 g (test code = 2654) ELADIA (test code = Performing Lab ELADIA) *NELLY [facility], [address] [place] [phone] Chaitanya Gagnon MD [facility] CenterBASI METABOLIC [id number] 07:06:00 Test Item Value Reference Range Interpretation Comments SODIUM (BEAKER) 136 meq/L 136-145 (test code = 381) POTASSIUM (BEAKER) 4.2 meq/L 3.5-5.1 (test code = 379) CHLORIDE (BEAKER) 110 meq/L 98-107 H (test code = 382) CO2 (BEAKER) (test 19 meq/L 22-29 L code = 355) BLOOD UREA NITROGEN 23 mg/dL 7-21 H (BEAKER) (test code = 354) CREATININE (BEAKER) 0.91 mg/dL 0.57-1.25 (test code = 358) GLUCOSE RANDOM 104 mg/dL 70-105 (BEAKER) (test code = 652) CALCIUM (BEAKER) 9.4 mg/dL 8.4-10.2 (test code = 697) EGFR (BEAKER) (test 84 mL/min/1.73 ESTIMA RYANNE GFR IS code = 1092) sq m NOT ACCURATE CREATININE CLEARANCE IN PREDICTING GLOMERULAR FILTRATION RATE . ESTIMATED GFR I S NOT APPLICABLE FOR DIALYSIS PATIEN TS. Sausage Grinder ID - TRISH MCBC W/PLT COUNT & AUTO [id number] 06:59:00 Test Item Value Reference Range Interpretation Comments WHITE BLOOD CELL COUNT (BEAKER) 7.5 K/ L 3.5-10.5 (test code = 775) RED BLOOD CELL COUNT (BEAKER) 4.05 M/ L 3.93-5.22 (test code = 761) HEMOGLOBIN (BEAKER) (test code = 9.2 GM/DL 11.2-15.7 L 410) HEMATOCRIT (BEAKER) (test code = 31.5 % 34.1-44.9 L 411) MEAN CORPUSCULAR VOLUME (BEAKER) 77.8 fL 79.4-94.8 L (test code = 753) MEAN CORPUSCULAR HEMOGLOBIN 22.7 pg 25.6-32.2 L (BEAKER) (test code = 751) MEAN CORPUSCULAR HEMOGLOBIN CONC 29.2 GM/DL 32.2-35.5 L (BEAKER) (test code = 752) RED CELL DISTRIBUTION WIDTH 15.6 % 11.7-14.4 H (BEAKER) (test code = 412) PLATELET COUNT (BEAKER) (test 350 K/CU MM 150-450 code = 756) MEAN PLATELET VOLUME (BEAKER) 11.1 fL 9.4-12.3 (test code = 754) NUCLEATED RED BLOOD CELLS 0 /100 WBC 0-0 (BEAKER) (test code = 413) NEUTROPHILS RELATIVE PERCENT 83 % (BEAKER) (test code = 429) LYMPHOCYTES RELATIVE PERCENT 9 % (BEAKER) (test code = 430) MONOCYTES RELATIVE PERCENT 8 % (BEAKER) (test code = 431) EOSINOPHILS RELATIVE PERCENT 0 % (BEAKER) (test code = 432) BASOPHILS RELATIVE PERCENT 0 % (BEAKER) (test code = 437) NEUTROPHILS ABSOLUTE COUNT 6.18 K/ L 1.56-6.13 H (BEAKER) (test code = 670) LYMPHOCYTES ABSOLUTE COUNT 0.66 K/ L 1.18-3.74 L (BEAKER) (test code = 414) MONOCYTES ABSOLUTE COUNT (BEAKER) 0.58 K/ L 0.24-0.36 H (test code = 415) EOSINOPHILS ABSOLUTE COUNT 0.01 K/ L 0.04-0.36 L (BEAKER) (test code = 416) BASOPHILS ABSOLUTE COUNT (BEAKER) 0.00 K/ L 0.01-0.08 L (test code = 417) IMMATURE GRANULOCYTES-RELATIVE 1 % 0-1 PERCENT (BEAKER) (test code = 2801) FL, FLUORO, NON-SPECIFIC, UP TO 1 [id number] 20:25:00Reason for exam:- >[facility] 1980 Sex: FFINAL REPORT Examination: Retrograde pyelography 14 fluoroscopic spot views were obtained during the procedure by the ordering service. Images are nondiagnostic as no radiologist was present at the time of imaging. Fluoroscopic time was 4.1 minutes. Please see the procedure report for details. Signed: Jameel Fryeepnick Verified Date/Time: 05/17/2020 20:25:52 Prothrombin time/[id number] 08:16:00 Test Item Value Reference Interpretation Comments Range Protime (test code = 13.4 See_Comment [Autom ated 5902-2) message] The system which generated this result transmitted reference range : 11.9 - 14.2 seconds. The reference range was not used to interpret this result as normal/abnormal . INR (test code = 1.05 See_Comment [Automated 8741-6) message] The system which generated this result transmitted reference range : <=5.90. The reference range was not used to interpret this result as normal/abnormal . ELADIA (test code = Effective 12/10/2018: ELADIA) PT Reference Range ChangeNew: 11.9-14.2 Previous: 11.7-14.7 RECOMMENDED COUMADIN/WARFARIN INR THERAPY RANGESSTANDARD DOSE: 2.0-3.0 Includes: PROPHYLAXIS for venous thrombosis, systemic embolization; TREATMENT for venous thrombosis and/or pulmonary embolus.HIGH RISK: Target INR is 2.5-3.5 for patients wiht mechanical heart valves. Lab Interpretation Normal (test code = 33762-7) [facility] CenteraPTT[facility] 08:16:00 Test Item Value Reference Range Interpretation Comments PTT (test code = 00950-3) 29.9 See_Comment [ Automated message] The system [employer] generated this result transmitted ref erence range: 22.5 - 3 6.0 seconds. The re ference range was not u sed to interpret this result as normal/abnor mal. Lab Interpretation (test Normal code = 43557-5) [facility] CenterPROTHROMBIN TIME/[id number] 08:16:00 Test Item Value Reference Range Interpretation Comments PROTIME (BEAKER) (test code = 13.4 seconds 11.9-14.2 759) INR (BEAKER) (test code = 370) 1.05 <=5.90 Effective 12/10/2018: PT Reference Range ChangeNew: 11.9-14.2 Previous: 11.7- 14.7RECOMMENDED COUMADIN/WARFARIN INR THERAPY RANGESSTANDARD DOSE: 2.0-3.0 Includes: PROPHYLAXIS for venous thrombosis, systemic embolization; TREATMENT for venous thrombosis and/or pulmonary embolus.HIGH RISK: Target INR is2.5-3.5 for patients wiht mechanical heart valves.[id number] 08:16:00 Test Item Value Reference Range Interpretation Comments PARTIAL THROMBOPLASTIN TIME 29.9 seconds 22.5-36.0 (BEAKER) (test code = 760) SCREEN, [id number] 08:10:00 Test Item Value Reference Range Interpretation Comments TEST URINE (BEAKER) (test Negative code = 583) Hepatic function [id number] 07:49:00 Test Item Value Reference Range Interpretation Comments Protein, Total (test 6.7 See_Comment [Autom ated code = 2885-2) message] The system which generated this result transmit ryanne reference range : 6.0 - 8.3 gm/dL . The reference range was not u sed to interpret th is result as normal/abnormal . Albumin (test code = 3.1 g/dL 3.5-5 L 28809-6) Total Bilirubin (test 0.3 mg/dL 0.2-1.2 code = 1975-2) Bilirubin, Direct 0.2 mg/dL 0.1-0.5 (test code = 1968-7) Alkaline Phosphatase 692 U/L 40-150 H (test code = 6768-6) AST (test code = 30 U/L 5-34 1920-8) ALT (test code = 40 U/L 6-55 1742-6) ELADIA (test code = ELADIA) Sausage Grinder ID - ADMIN Lab Interpretation Abnormal (test code = 69144-5) [facility] CenterHEPATIC FUNCTION [id number] 07:49:00 Test Item Value Reference Range Interpretation Comments TOTAL PROTEIN (BEAKER) (test code = 6.7 gm/dL 6.0-8.3 770) ALBUMIN (BEAKER) (test code = 1145) 3.1 g/dL 3.5-5.0 L BILIRUBIN TOTAL (BEAKER) (test code 0.3 mg/dL 0.2-1.2 = 377) BILIRUBIN DIRECT (BEAKER) (test 0.2 mg/dL 0.1-0.5 code = 706) ALKALINE PHOSPHATASE (BEAKER) (test 692 U/L 40-150 H code = 346) AST (SGOT) (BEAKER) (test code = 30 U/L 5-34 353) ALT (SGPT) (BEAKER) (test code = 40 U/L 6-55 347) Sausage Grinder ID - ADMINSARS-COV2/RT-PCR ([facility])2020-05-17 07:32:00 Test Item Value Reference Range Interpretation Comments SARS-COV2/RT-PCR (test Negative Not Detected, Negative, code = 3545026) See external report for linked test SARS-COV-2 PERFORMING LAB [facility] (test code = 5947369) Negative result for this test determines that [...] limit of detection for this assay is 100 copies/mL.This SARS CoV-2 test is a real-time [...] is revoked under Section 564(g) of the Act.Testing was performed using the Gutierres SARS-CoV-2 assay.Fact Sheet for Healthcare Providers:https://www.Merkle.gutierres/meri/ AL_QGRM-WqV-7_KNM_Ankx_Vdwuw_88-162152.pdfFact Sheet for Healthcare Patients:https://www.Merkle.[employer] roxana/meri/BL_DSOZ-RxC-8_Ebgnjca_Uaji_Qydie_YL_05-337651Q4.pdfPerforming Laboratory:[place] [address] [place] [address] BASIC METABOLIC [id number] 05:56:00 Test Item Value Reference Range Interpretation Comments SODIUM (BEAKER) 138 meq/L 136-145 (test code = 381) POTASSIUM (BEAKER) 4.5 meq/L 3.5-5.1 (test code = 379) CHLORIDE (BEAKER) 109 meq/L 98-107 H (test code = 382) CO2 (BEAKER) (test 20 meq/L 22-29 L code = 355) BLOOD UREA NITROGEN 26 mg/dL 7-21 H (BEAKER) (test code = 354) CREATININE (BEAKER) 0.85 mg/dL 0.57-1.25 (test code = 358) GLUCOSE RANDOM 86 mg/dL 70-105 (BEAKER) (test code = 652) CALCIUM (BEAKER) 10.1 mg/dL 8.4-10.2 (test code = 697) EGFR (BEAKER) (test 91 mL/min/1.73 ESTIMA RYANNE GFR IS code = 1092) sq m NOT ACCURATE CREATININE CLEARANCE IN PREDICTING GLOMERULAR FILTRATION RATE . ESTIMATED GFR I S NOT APPLICABLE FOR DIALYSIS PATIEN TS. Sausage Grinder ID - [id number] 05:56:00 Test Item Value Reference Range Interpretation Comments MAGNESIUM (BEAKER) (test code = 1.7 mg/dL 1.6-2.6 627) Sausage Grinder ID - [id number] 05:56:00 Test Item Value Reference Range Interpretation Comments PHOSPHORUS (BEAKER) (test code = 3.3 mg/dL 2.3-4.7 604) Sausage Grinder ID - ADMINCalcium, [id number] 05:45:00 Test Item Value Reference Range Interpretation Comments Calcium, Ion (test code = 1993-) 1.41 mmol/L 1.12-1.27 H pH, Blood (test code = 20180-9) 7.35 Lab Interpretation (test code = Abnormal 10035-9) [facility] CenterCALCIUM, [id number] 05:45:00 Test Item Value Reference Range Interpretation Comments CALCIUM IONIZED (BEAKER) (test 1.41 mmol/L 1.12-1.27 H code = 698) PH, BLOOD (BEAKER) (test code = 7.35 1810) CBC W/PLT COUNT & AUTO [id number] 05:36:00 Test Item Value Reference Range Interpretation Comments WHITE BLOOD CELL COUNT (BEAKER) 7.9 K/ L 3.5-10.5 (test code = 775) RED BLOOD CELL COUNT (BEAKER) 4.07 M/ L 3.93-5.22 (test code = 761) HEMOGLOBIN (BEAKER) (test code = 9.1 GM/DL 11.2-15.7 L 410) HEMATOCRIT (BEAKER) (test code = 31.4 % 34.1-44.9 L 411) MEAN CORPUSCULAR VOLUME (BEAKER) 77.1 fL 79.4-94.8 L (test code = 753) MEAN CORPUSCULAR HEMOGLOBIN 22.4 pg 25.6-32.2 L (BEAKER) (test code = 751) MEAN CORPUSCULAR HEMOGLOBIN CONC 29.0 GM/DL 32.2-35.5 L (BEAKER) (test code = 752) RED CELL DISTRIBUTION WIDTH 15.6 % 11.7-14.4 H (BEAKER) (test code = 412) PLATELET COUNT (BEAKER) (test 335 K/CU MM 150-450 code = 756) MEAN PLATELET VOLUME (BEAKER) 10.6 fL 9.4-12.3 (test code = 754) NUCLEATED RED BLOOD CELLS 0 /100 WBC 0-0 (BEAKER) (test code = 413) NEUTROPHILS RELATIVE PERCENT 70 % (BEAKER) (test code = 429) LYMPHOCYTES RELATIVE PERCENT 14 % (BEAKER) (test code = 430) MONOCYTES RELATIVE PERCENT 15 % (BEAKER) (test code = 431) EOSINOPHILS RELATIVE PERCENT 0 % (BEAKER) (test code = 432) BASOPHILS RELATIVE PERCENT 0 % (BEAKER) (test code = 437) NEUTROPHILS ABSOLUTE COUNT 5.52 K/ L 1.56-6.13 (BEAKER) (test code = 670) LYMPHOCYTES ABSOLUTE COUNT 1.11 K/ L 1.18-3.74 L (BEAKER) (test code = 414) MONOCYTES ABSOLUTE COUNT (BEAKER) 1.15 K/ L 0.24-0.36 H (test code = 415) EOSINOPHILS ABSOLUTE COUNT 0.01 K/ L 0.04-0.36 L (BEAKER) (test code = 416) BASOPHILS ABSOLUTE COUNT (BEAKER) 0.00 K/ L 0.01-0.08 L (test code = 417) IMMATURE GRANULOCYTES-RELATIVE 1 % 0-1 PERCENT (BEAKER) (test code = 2801) CT, [id number] 22:40:00Pt is premedicated for iodine allergy, To be scheduled for 04/15/20 at 1300.Unlisted Reason for Exam - Click Yes and Enter Reason Below->NoPlease specify:->[facility]OL RANJAN : 1980 Sex: FFINAL REPORT CT, ABDOMEN \\T\\ PELVIS, WITHOUT \\T\\ WITH IV CONTRAST HIST ORY: Abdominal pain, weight loss COMPARISON: CT abdomen and pelvis 05/09/2020 TECHNIQUE: CT of the abdomen and pelvis WITHOUT and WITH intravenous contrast and WITHOUT oral contrast, liver mass protocol. The examination was performed according to the departmental dose-optimization program, which includes automated exposure control, adjustment of the mA and/or kV according to patient size and/or useof iterative reconstruction technique. FINDINGS: Lung bases: Streaky bibasilar atelectasis/scarring..Liver: Heterogeneous and nodular in contour. No solid mass. Marked hepatomegaly, 24 cm in long axisGallbladder and bile ducts: Gallstones with no gallbladder wall thickening or pericholecystic fluid. No biliary dilation.Spleen: Markedly enlarged, 18.5 cm in long axis.Pancreas: Unremarkable.Adrenals: UnremarkableKidneys and ureters: Bilateral ureteral stents, right-sided stent with proximal end in the renal pelvis and distal end in the bladder, left-sided stent with proximal end at the ureteropel finn junction and distal end in the bladder, unchanged. Bilateral renal calculi, up to 9 mm on the right and 6 mm on the left. No hydronephrosis.Bowel: Nondilated bowel with no wall thickening. Moderateamount of stool throughout the colon. Appendix not visualized, however there is no right lower quadrant inflammatory change to suggest acute appendicitis.Bladder: Stents terminate in the bladder.Reproductive organs: The uterus is unremarkable. Left ovary has a dominant 2.4 cm follicle.Lymph nodes: Numerous lymph nodes in the retroperitoneum, including above the left adrenal gland, adjacent to the IVC and aorta, and at the ayala hepatis, for example a node in the left upper retroperitoneum measuresapproximately 14 x 27 mm (axial image 33) and the largest at the ayala hepatis measures 15 x 25 mm (axial image 58).Peritoneum: Trace ascites.Vessels: As circumaortic left renal vein. Gastrohepatic ligament varices, paraesophageal varices, likely small submucosal esophageal varices, tiny recanalized umbilical vein.Abdominal wall: Small fat-containing umbilical hernia. Mild anasarca.Bones: Unremarkable. IMPRESSION: 1.No hepatic mass.2.Marked hepatosplenomegaly, mildly nodular liver contour, trace ascites, and increased number of mildly enlarged nodes in the retroperitoneum and ayala hepatis. Small varices as described above. Likely cirrhosis with or without lymphoproliferative disorder.3.Cholelithiasis without evidence for acute cholecystitis.4.Nephrolithiasis with unchanged appropriate position of bilateral ureteral stents. Signed: Duke Hope Verified Date/Time: 05/16/2020 22:40:32 Reading Location: [place] [id number] Transitional Reading Room CT abdomen/pelvis without & with IV [id number] 22:40:00Interface, External Ris In - 05/16/2020 10:[address], ABDOMEN \\T\\ PELVIS, WITHOUT \\T\\ WITH IV CONTRAST HISTORY: Abdominal pain, weight loss COMPARISON: CT abdomenand pelvis 05/09/2020 TECHNIQUE: CT of the abdomen and pelvis WITHOUT and WITH intravenous contrast and WITHOUT oral contrast, liver mass protocol. The examination was performed according to the [facility] dose-optimization program, which includes automated exposure control, adjustment of the mA and/or kV according to patient size and/or use of iterative reconstruction technique. FINDINGS: Lung bases: Streaky bibasilar atelectasis/scarring..Liver: Heterogeneous and nodular in contour. No solid mass. Marked hepatomegaly, 24 cm in long axisGallbladder and bile ducts: Gallstones with no gallbladder wall thickening or pericholecystic fluid. No biliary dilation.Spleen: Markedly enlarged, 18.5 cm in long axis.Pancreas: Unremarkable.Adrenals: UnremarkableKidneys and ureters: Bilateral ureteral st ents, right-sided stent with proximal end in the renal pelvis and distal end in the bladder, left-sided stent with proximal end at the ureteropelvic junction and distal end in the bladder, unchanged. Bilateral renal calculi, up to 9 mm on the right and 6 mm on the left. No hydronephrosis.Bowel: Nondilated bowel with no wall thickening. Moderate amount of stool throughout the colon. Appendix not visualized, however there is no right lower quadrant inflammatory change to suggest acute appendicitis.Bladder: Stents terminate in the bladder.Reproductive organs: The uterus is unremarkable. Left ovary has a dominant 2.4 cm follicle.Lymph nodes: Numerous lymph nodes in the retroperitoneum, including above the left adrenal gland, adjacent to the IVC and aorta, and at the ayala hepatis, for example a nodein the left upper retroperitoneum measures approximately 14 x 27 mm (axial image 33) and the largest at the ayala hepatis measures 15 x 25 mm (axial image 58).Peritoneum: Trace ascites.Vessels: As circ umaortic left renal vein. Gastrohepatic ligament varices, paraesophageal varices, likely small submucosal esophageal varices, tiny recanalized umbilical vein.Abdominal wall: Small fat-containing umbilical hernia. Mild anasarca.Bones: Unremarkable. IMPRESSION: 1.No hepatic mass.2.Marked hepatosplenomegaly, mildly nodular liver contour, trace ascites, and increased number of mildly enlarged nodes in the retroperitoneum and ayala hepatis. Small varices as described above. Likely cirrhosis with or without lymphoproliferative disorder.3.Cholelithiasis without evidence for acute cholecystitis.4.Nephrolith iasis with unchanged appropriate position of bilateral ureteral stents. Signed: [facility] MDReport Verified Date/Time: 05/16/2020 22:40:32 Reading Location: [address] Transitional Reading Room [facility] hour [id number] 20:13:00 Test Item Value Reference Range Interpretation Comments Volume, Urine (test 5450 ml code = 3167-4) Calcium, Ur (test 5.9 mg/dL code = 95962-7) Calcium, 24hr Urine 322 See_Comment H [Automa ryanne (test code = 31134-4) messag e] The system which generated this result transmit ryanne reference range : 50 - 300 mg/24 Hr. The reference range was not u sed to interpret th is result as normal/abnormal . ELADIA (test code = ELADIA) Sausage Grinder ID Irma Al Lab Interpretation Abnormal (test code = 40805-9) [facility] [id number] 20:13:00 Test Item Value Reference Range Interpretation Comments VOLUME, TOTAL (BEAKER) (test 5450 ml code = 1457) CALCIUM URINE (BEAKER) (test 5.9 mg/dL code = 396) CALCIUM, 24HR URINE (BEAKER) 322 mg/24 Hr 50-300 H (test code = 1520) Sausage Grinder ID Irma PATEL FVitamin D, [id number] 06:03:00 Test Item Value Reference Range Interpretation Comments Vitamin D 25-Hydroxy 7.2 ng/mL 6.6-49.9 (test code = 2764) ELADIA (test code = ELADIA) Effective 04/24/2017: Reference Range ChangeNew: 6.6-49.9 ng/mL Previous: 13.0-47.8 ng/mL Recommended Vitamin D Target Range: 30.0-40.0 ng/mLOperator ID - DB Lab Interpretation (test Normal code = 02421-5) [facility] Center[facility] D, [id number] 06:03:00 Test Item Value Reference Range Interpretation Comments VITAMIN D 25-OH (BEAKER) (test code 7.2 ng/mL 6.6-49.9 = 2764) Effective 04/24/2017: Reference Range ChangeNew: 6.6-49.9 ng/mL Previous: 13.0-47.8 ng/mLRecommended Vitamin D Target Range: 30.0-40.0 ng/mLOperator ID - DBBASIC METABOLIC [id number] 05:56:00 Test Item Value Reference Range Interpretation Comments SODIUM (BEAKER) 136 meq/L 136-145 (test code = 381) POTASSIUM (BEAKER) 4.8 meq/L 3.5-5.1 (test code = 379) CHLORIDE (BEAKER) 106 meq/L 98-107 (test code = 382) CO2 (BEAKER) (test 20 meq/L 22-29 L code = 355) BLOOD UREA NITROGEN 20 mg/dL 7-21 (BEAKER) (test code = 354) CREATININE (BEAKER) 0.88 mg/dL 0.57-1.25 (test code = 358) GLUCOSE RANDOM 92 mg/dL 70-105 (BEAKER) (test code = 652) CALCIUM (BEAKER) 10.1 mg/dL 8.4-10.2 (test code = 697) EGFR (BEAKER) (test 87 mL/min/1.73 ESTIMA RYANNE GFR IS code = 1092) sq m NOT ACCURATE CREATININE CLEARANCE IN PREDICTING GLOMERULAR FILTRATION RATE . ESTIMATED GFR I S NOT APPLICABLE FOR DIALYSIS PATIEN TS. Sausage Grinder ID - [id number] 05:56:00 Test Item Value Reference Range Interpretation Comments MAGNESIUM (BEAKER) (test code = 1.6 mg/dL 1.6-2.6 627) Sausage Grinder ID - [id number] 05:56:00 Test Item Value Reference Range Interpretation Comments PHOSPHORUS (BEAKER) (test code = 3.3 mg/dL 2.3-4.7 604) Sausage Grinder ID - EDASICBC W/PLT COUNT & AUTO [id number] 05:47:00 Test Item Value Reference Range Interpretation Comments WHITE BLOOD CELL COUNT (BEAKER) 4.4 K/ L 3.5-10.5 (test code = 775) RED BLOOD CELL COUNT (BEAKER) 4.11 M/ L 3.93-5.22 (test code = 761) HEMOGLOBIN (BEAKER) (test code = 9.2 GM/DL 11.2-15.7 L 410) HEMATOCRIT (BEAKER) (test code = 31.5 % 34.1-44.9 L 411) MEAN CORPUSCULAR VOLUME (BEAKER) 76.6 fL 79.4-94.8 L (test code = 753) MEAN CORPUSCULAR HEMOGLOBIN 22.4 pg 25.6-32.2 L (BEAKER) (test code = 751) MEAN CORPUSCULAR HEMOGLOBIN CONC 29.2 GM/DL 32.2-35.5 L (BEAKER) (test code = 752) RED CELL DISTRIBUTION WIDTH 15.4 % 11.7-14.4 H (BEAKER) (test code = 412) PLATELET COUNT (BEAKER) (test 297 K/CU MM 150-450 code = 756) MEAN PLATELET VOLUME (BEAKER) 10.2 fL 9.4-12.3 (test code = 754) NUCLEATED RED BLOOD CELLS 0 /100 WBC 0-0 (BEAKER) (test code = 413) NEUTROPHILS RELATIVE PERCENT 76 % (BEAKER) (test code = 429) LYMPHOCYTES RELATIVE PERCENT 17 % (BEAKER) (test code = 430) MONOCYTES RELATIVE PERCENT 4 % (BEAKER) (test code = 431) EOSINOPHILS RELATIVE PERCENT 1 % (BEAKER) (test code = 432) BASOPHILS RELATIVE PERCENT 0 % (BEAKER) (test code = 437) NEUTROPHILS ABSOLUTE COUNT 3.37 K/ L 1.56-6.13 (BEAKER) (test code = 670) LYMPHOCYTES ABSOLUTE COUNT 0.75 K/ L 1.18-3.74 L (BEAKER) (test code = 414) MONOCYTES ABSOLUTE COUNT (BEAKER) 0.19 K/ L 0.24-0.36 L (test code = 415) EOSINOPHILS ABSOLUTE COUNT 0.05 K/ L 0.04-0.36 (BEAKER) (test code = 416) BASOPHILS ABSOLUTE COUNT (BEAKER) 0.01 K/ L 0.01-0.08 (test code = 417) IMMATURE GRANULOCYTES-RELATIVE 1 % 0-1 PERCENT (BEAKER) (test code = 2801) CALCIUM, [id number] 05:27:00 Test Item Value Reference Range Interpretation Comments CALCIUM IONIZED (BEAKER) (test 1.41 mmol/L 1.12-1.27 H code = 698) PH, BLOOD (BEAKER) (test code = 7.34 1810) BASIC METABOLIC [id number] 06:19:00 Test Item Value Reference Range Interpretation Comments SODIUM (BEAKER) 136 meq/L 136-145 (test code = 381) POTASSIUM (BEAKER) 4.4 meq/L 3.5-5.1 (test code = 379) CHLORIDE (BEAKER) 109 meq/L 98-107 H (test code = 382) CO2 (BEAKER) (test 20 meq/L 22-29 L code = 355) BLOOD UREA NITROGEN 20 mg/dL 7-21 (BEAKER) (test code = 354) CREATININE (BEAKER) 0.84 mg/dL 0.57-1.25 (test code = 358) GLUCOSE RANDOM 77 mg/dL 70-105 (BEAKER) (test code = 652) CALCIUM (BEAKER) 9.5 mg/dL 8.4-10.2 (test code = 697) EGFR (BEAKER) (test 92 mL/min/1.73 ESTIMA RYANNE GFR IS code = 1092) sq m NOT ACCURATE CREATININE CLEARANCE IN PREDICTING GLOMERULAR FILTRATION RATE . ESTIMATED GFR I S NOT APPLICABLE FOR DIALYSIS PATIEN TS. Sausage Grinder ID - [id number] 06:19:00 Test Item Value Reference Range Interpretation Comments MAGNESIUM (BEAKER) (test code = 1.6 mg/dL 1.6-2.6 627) Sausage Grinder ID - [id number] 06:19:00 Test Item Value Reference Range Interpretation Comments PHOSPHORUS (BEAKER) (test code = 3.2 mg/dL 2.3-4.7 604) Sausage Grinder ID - EDASICBC W/PLT COUNT & AUTO [id number] 06:07:00 Test Item Value Reference Range Interpretation Comments WHITE BLOOD CELL COUNT (BEAKER) 4.3 K/ L 3.5-10.5 (test code = 775) RED BLOOD CELL COUNT (BEAKER) 3.90 M/ L 3.93-5.22 L (test code = 761) HEMOGLOBIN (BEAKER) (test code = 8.9 GM/DL 11.2-15.7 L 410) HEMATOCRIT (BEAKER) (test code = 30.4 % 34.1-44.9 L 411) MEAN CORPUSCULAR VOLUME (BEAKER) 77.9 fL 79.4-94.8 L (test code = 753) MEAN CORPUSCULAR HEMOGLOBIN 22.8 pg 25.6-32.2 L (BEAKER) (test code = 751) MEAN CORPUSCULAR HEMOGLOBIN CONC 29.3 GM/DL 32.2-35.5 L (BEAKER) (test code = 752) RED CELL DISTRIBUTION WIDTH 15.6 % 11.7-14.4 H (BEAKER) (test code = 412) PLATELET COUNT (BEAKER) (test 271 K/CU MM 150-450 code = 756) MEAN PLATELET VOLUME (BEAKER) 9.7 fL 9.4-12.3 (test code = 754) NUCLEATED RED BLOOD CELLS 0 /100 WBC 0-0 (BEAKER) (test code = 413) NEUTROPHILS RELATIVE PERCENT 57 % (BEAKER) (test code = 429) LYMPHOCYTES RELATIVE PERCENT 24 % (BEAKER) (test code = 430) MONOCYTES RELATIVE PERCENT 13 % (BEAKER) (test code = 431) EOSINOPHILS RELATIVE PERCENT 4 % (BEAKER) (test code = 432) BASOPHILS RELATIVE PERCENT 0 % (BEAKER) (test code = 437) NEUTROPHILS ABSOLUTE COUNT 2.42 K/ L 1.56-6.13 (BEAKER) (test code = 670) LYMPHOCYTES ABSOLUTE COUNT 1.04 K/ L 1.18-3.74 L (BEAKER) (test code = 414) MONOCYTES ABSOLUTE COUNT (BEAKER) 0.54 K/ L 0.24-0.36 H (test code = 415) EOSINOPHILS ABSOLUTE COUNT 0.18 K/ L 0.04-0.36 (BEAKER) (test code = 416) BASOPHILS ABSOLUTE COUNT (BEAKER) 0.01 K/ L 0.01-0.08 (test code = 417) IMMATURE GRANULOCYTES-RELATIVE 2 % 0-1 H PERCENT (BEAKER) (test code = 2801) PTH, [id number] 06:00:00 Test Item Value Reference Range Interpretation Comments PTH (test code = 2731-8) 5.5 pg/mL 8.5-72.5 L ELADIA (test code = ELADIA) Sausage Grinder ID - DB Lab Interpretation (test Abnormal code = 10887-5) [facility], [id number] 06:00:00 Test Item Value Reference Range Interpretation Comments PARATHYROID HORMONE INTACT (BEAKER) 5.5 pg/mL 8.5-72.5 L (test code = 577) Sausage Grinder ID - DBCALCIUM, [id number] 05:59:00 Test Item Value Reference Range Interpretation Comments CALCIUM IONIZED (BEAKER) (test 1.35 mmol/L 1.12-1.27 H code = 698) PH, BLOOD (BEAKER) (test code = 7.34 1810) BLOOD [id number] 02:02:00 Test Item Value Reference Range Interpretation Comments CULTURE (BEAKER) (test No growth in 5 days code = 1095) [id number] 05:34:00 Test Item Value Reference Range Interpretation Comments MAGNESIUM (BEAKER) 1.9 mg/dL 1.6-2.6 Specimen slightly (test code = 627) hemolyzed Sausage Grinder ID - TRISH [id number] 05:34:00 Test Item Value Reference Range Interpretation Comments PHOSPHORUS (BEAKER) 2.6 mg/dL 2.3-4.7 Specimen slightly (test code = 604) hemolyzed Sausage Grinder ID - TRISH MBASIC METABOLIC [id number] 05:34:00 Test Item Value Reference Range Interpretation Comments SODIUM (BEAKER) 135 meq/L 136-145 L (test code = 381) POTASSIUM (BEAKER) 4.8 meq/L 3.5-5.1 Specimen slightly (test code = 379) hemolyzed CHLORIDE (BEAKER) 108 meq/L 98-107 H (test code = 382) CO2 (BEAKER) (test 20 meq/L 22-29 L code = 355) BLOOD UREA NITROGEN 23 mg/dL 7-21 H (BEAKER) (test code = 354) CREATININE (BEAKER) 0.88 mg/dL 0.57-1.25 Specimen slightly (test code = 358) hemolyzed GLUCOSE RANDOM 76 mg/dL 70-105 (BEAKER) (test code = 652) CALCIUM (BEAKER) 9.3 mg/dL 8.4-10.2 (test code = 697) EGFR (BEAKER) (test 87 mL/min/1.73 ESTIMA RYANNE GFR IS code = 1092) sq m NOT ACCURATE CREATININE CLEARANCE IN PREDICTING GLOMERULAR FILTRATION RATE . ESTIMATED GFR I S NOT APPLICABLE FOR DIALYSIS PATIEN TS. Sausage Grinder ID - TRISH MCBC W/PLT COUNT & AUTO [id number] 05:30:00 Test Item Value Reference Range Interpretation Comments WHITE BLOOD CELL COUNT (BEAKER) 4.4 K/ L 3.5-10.5 (test code = 775) RED BLOOD CELL COUNT (BEAKER) 3.78 M/ L 3.93-5.22 L (test code = 761) HEMOGLOBIN (BEAKER) (test code = 8.6 GM/DL 11.2-15.7 L 410) HEMATOCRIT (BEAKER) (test code = 29.5 % 34.1-44.9 L 411) MEAN CORPUSCULAR VOLUME (BEAKER) 78.0 fL 79.4-94.8 L (test code = 753) MEAN CORPUSCULAR HEMOGLOBIN 22.8 pg 25.6-32.2 L (BEAKER) (test code = 751) MEAN CORPUSCULAR HEMOGLOBIN CONC 29.2 GM/DL 32.2-35.5 L (BEAKER) (test code = 752) RED CELL DISTRIBUTION WIDTH 15.7 % 11.7-14.4 H (BEAKER) (test code = 412) PLATELET COUNT (BEAKER) (test 292 K/CU MM 150-450 code = 756) MEAN PLATELET VOLUME (BEAKER) 10.5 fL 9.4-12.3 (test code = 754) NUCLEATED RED BLOOD CELLS 0 /100 WBC 0-0 (BEAKER) (test code = 413) NEUTROPHILS RELATIVE PERCENT 58 % (BEAKER) (test code = 429) LYMPHOCYTES RELATIVE PERCENT 23 % (BEAKER) (test code = 430) MONOCYTES RELATIVE PERCENT 14 % (BEAKER) (test code = 431) EOSINOPHILS RELATIVE PERCENT 4 % (BEAKER) (test code = 432) BASOPHILS RELATIVE PERCENT 0 % (BEAKER) (test code = 437) NEUTROPHILS ABSOLUTE COUNT 2.54 K/ L 1.56-6.13 (BEAKER) (test code = 670) LYMPHOCYTES ABSOLUTE COUNT 1.03 K/ L 1.18-3.74 L (BEAKER) (test code = 414) MONOCYTES ABSOLUTE COUNT (BEAKER) 0.60 K/ L 0.24-0.36 H (test code = 415) EOSINOPHILS ABSOLUTE COUNT 0.17 K/ L 0.04-0.36 (BEAKER) (test code = 416) BASOPHILS ABSOLUTE COUNT (BEAKER) 0.01 K/ L 0.01-0.08 (test code = 417) IMMATURE GRANULOCYTES-RELATIVE 1 % 0-1 PERCENT (BEAKER) (test code = 2801) CALCIUM, [id number] 04:51:00 Test Item Value Reference Range Interpretation Comments CALCIUM IONIZED (BEAKER) (test 1.35 mmol/L 1.12-1.27 H code = 698) PH, BLOOD (BEAKER) (test code = 7.36 1810) BASIC METABOLIC [id number] 06:16:00 Test Item Value Reference Range Interpretation Comments SODIUM (BEAKER) 137 meq/L 136-145 (test code = 381) POTASSIUM (BEAKER) 4.7 meq/L 3.5-5.1 (test code = 379) CHLORIDE (BEAKER) 109 meq/L 98-107 H (test code = 382) CO2 (BEAKER) (test 20 meq/L 22-29 L code = 355) BLOOD UREA NITROGEN 21 mg/dL 7-21 (BEAKER) (test code = 354) CREATININE (BEAKER) 0.88 mg/dL 0.57-1.25 (test code = 358) GLUCOSE RANDOM 77 mg/dL 70-105 (BEAKER) (test code = 652) CALCIUM (BEAKER) 9.4 mg/dL 8.4-10.2 (test code = 697) EGFR (BEAKER) (test 87 mL/min/1.73 ESTIMA RYANNE GFR IS code = 1092) sq m NOT ACCURATE CREATININE CLEARANCE IN PREDICTING GLOMERULAR FILTRATION RATE . ESTIMATED GFR I S NOT APPLICABLE FOR DIALYSIS PATIEN TS. Sausage Grinder ID - EDASICBC W/PLT COUNT & AUTO [id number] 05:21:00 Test Item Value Reference Range Interpretation Comments WHITE BLOOD CELL COUNT (BEAKER) 4.1 K/ L 3.5-10.5 (test code = 775) RED BLOOD CELL COUNT (BEAKER) 3.77 M/ L 3.93-5.22 L (test code = 761) HEMOGLOBIN (BEAKER) (test code = 8.8 GM/DL 11.2-15.7 L 410) HEMATOCRIT (BEAKER) (test code = 29.0 % 34.1-44.9 L 411) MEAN CORPUSCULAR VOLUME (BEAKER) 76.9 fL 79.4-94.8 L (test code = 753) MEAN CORPUSCULAR HEMOGLOBIN 23.3 pg 25.6-32.2 L (BEAKER) (test code = 751) MEAN CORPUSCULAR HEMOGLOBIN CONC 30.3 GM/DL 32.2-35.5 L (BEAKER) (test code = 752) RED CELL DISTRIBUTION WIDTH 15.6 % 11.7-14.4 H (BEAKER) (test code = 412) PLATELET COUNT (BEAKER) (test 262 K/CU MM 150-450 code = 756) MEAN PLATELET VOLUME (BEAKER) 9.5 fL 9.4-12.3 (test code = 754) NUCLEATED RED BLOOD CELLS 0 /100 WBC 0-0 (BEAKER) (test code = 413) NEUTROPHILS RELATIVE PERCENT 50 % (BEAKER) (test code = 429) LYMPHOCYTES RELATIVE PERCENT 27 % (BEAKER) (test code = 430) MONOCYTES RELATIVE PERCENT 18 % (BEAKER) (test code = 431) EOSINOPHILS RELATIVE PERCENT 4 % (BEAKER) (test code = 432) BASOPHILS RELATIVE PERCENT 0 % (BEAKER) (test code = 437) NEUTROPHILS ABSOLUTE COUNT 2.03 K/ L 1.56-6.13 (BEAKER) (test code = 670) LYMPHOCYTES ABSOLUTE COUNT 1.09 K/ L 1.18-3.74 L (BEAKER) (test code = 414) MONOCYTES ABSOLUTE COUNT (BEAKER) 0.71 K/ L 0.24-0.36 H (test code = 415) EOSINOPHILS ABSOLUTE COUNT 0.17 K/ L 0.04-0.36 (BEAKER) (test code = 416) BASOPHILS ABSOLUTE COUNT (BEAKER) 0.01 K/ L 0.01-0.08 (test code = 417) IMMATURE GRANULOCYTES-RELATIVE 1 % 0-1 PERCENT (BEAKER) (test code = 2801) BASIC METABOLIC [id number] 07:24:00 Test Item Value Reference Range Interpretation Comments SODIUM (BEAKER) 139 meq/L 136-145 (test code = 381) POTASSIUM (BEAKER) 4.2 meq/L 3.5-5.1 (test code = 379) CHLORIDE (BEAKER) 112 meq/L 98-107 H (test code = 382) CO2 (BEAKER) (test 19 meq/L 22-29 L code = 355) BLOOD UREA NITROGEN 23 mg/dL 7-21 H (BEAKER) (test code = 354) CREATININE (BEAKER) 1.00 mg/dL 0.57-1.25 (test code = 358) GLUCOSE RANDOM 74 mg/dL 70-105 (BEAKER) (test code = 652) CALCIUM (BEAKER) 9.1 mg/dL 8.4-10.2 (test code = 697) EGFR (BEAKER) (test 75 mL/min/1.73 ESTIMA RYANNE GFR IS code = 1092) sq m NOT ACCURATE CREATININE CLEARANCE IN PREDICTING GLOMERULAR FILTRATION RATE . ESTIMATED GFR I S NOT APPLICABLE FOR DIALYSIS PATIEN TS. Sausage Grinder ID - TRISH MCBC W/PLT COUNT & AUTO [id number] 06:38:00 Test Item Value Reference Range Interpretation Comments WHITE BLOOD CELL COUNT (BEAKER) 3.8 K/ L 3.5-10.5 (test code = 775) RED BLOOD CELL COUNT (BEAKER) 3.82 M/ L 3.93-5.22 L (test code = 761) HEMOGLOBIN (BEAKER) (test code = 8.5 GM/DL 11.2-15.7 L 410) HEMATOCRIT (BEAKER) (test code = 29.6 % 34.1-44.9 L 411) MEAN CORPUSCULAR VOLUME (BEAKER) 77.5 fL 79.4-94.8 L (test code = 753) MEAN CORPUSCULAR HEMOGLOBIN 22.3 pg 25.6-32.2 L (BEAKER) (test code = 751) MEAN CORPUSCULAR HEMOGLOBIN CONC 28.7 GM/DL 32.2-35.5 L (BEAKER) (test code = 752) RED CELL DISTRIBUTION WIDTH 15.8 % 11.7-14.4 H (BEAKER) (test code = 412) PLATELET COUNT (BEAKER) (test 282 K/CU MM 150-450 code = 756) MEAN PLATELET VOLUME (BEAKER) 10.5 fL 9.4-12.3 (test code = 754) NUCLEATED RED BLOOD CELLS 0 /100 WBC 0-0 (BEAKER) (test code = 413) NEUTROPHILS RELATIVE PERCENT 52 % (BEAKER) (test code = 429) LYMPHOCYTES RELATIVE PERCENT 25 % (BEAKER) (test code = 430) MONOCYTES RELATIVE PERCENT 17 % (BEAKER) (test code = 431) EOSINOPHILS RELATIVE PERCENT 5 % (BEAKER) (test code = 432) BASOPHILS RELATIVE PERCENT 0 % (BEAKER) (test code = 437) NEUTROPHILS ABSOLUTE COUNT 1.96 K/ L 1.56-6.13 (BEAKER) (test code = 670) LYMPHOCYTES ABSOLUTE COUNT 0.95 K/ L 1.18-3.74 L (BEAKER) (test code = 414) MONOCYTES ABSOLUTE COUNT (BEAKER) 0.62 K/ L 0.24-0.36 H (test code = 415) EOSINOPHILS ABSOLUTE COUNT 0.18 K/ L 0.04-0.36 (BEAKER) (test code = 416) BASOPHILS ABSOLUTE COUNT (BEAKER) 0.01 K/ L 0.01-0.08 (test code = 417) IMMATURE GRANULOCYTES-RELATIVE 1 % 0-1 PERCENT (BEAKER) (test code = 2801) BASIC METABOLIC [id number] 05:16:00 Test Item Value Reference Range Interpretation Comments SODIUM (BEAKER) 134 meq/L 136-145 L (test code = 381) POTASSIUM (BEAKER) 4.5 meq/L 3.5-5.1 (test code = 379) CHLORIDE (BEAKER) 106 meq/L 98-107 (test code = 382) CO2 (BEAKER) (test 22 meq/L 22-29 code = 355) BLOOD UREA NITROGEN 28 mg/dL 7-21 H (BEAKER) (test code = 354) CREATININE (BEAKER) 1.23 mg/dL 0.57-1.25 (test code = 358) GLUCOSE RANDOM 91 mg/dL 70-105 (BEAKER) (test code = 652) CALCIUM (BEAKER) 9.8 mg/dL 8.4-10.2 (test code = 697) EGFR (BEAKER) (test 59 mL/min/1.73 ESTIMA RYANNE GFR IS code = 1092) sq m NOT ACCURATE CREATININE CLEARANCE IN PREDICTING GLOMERULAR FILTRATION RATE . ESTIMATED GFR I S NOT APPLICABLE FOR DIALYSIS PATIEN TS. Sausage Grinder ID - SHANIKA [id number] 05:16:00 Test Item Value Reference Range Interpretation Comments MAGNESIUM (BEAKER) (test code = 1.7 mg/dL 1.6-2.6 627) Sausage Grinder ID - SHANIKA [id number] 05:16:00 Test Item Value Reference Range Interpretation Comments PHOSPHORUS (BEAKER) (test code = 4.4 mg/dL 2.3-4.7 604) Sausage Grinder ID - SHANIKA LCBC W/PLT COUNT & AUTO [id number] 05:00:00 Test Item Value Reference Range Interpretation Comments WHITE BLOOD CELL COUNT (BEAKER) 4.0 K/ L 3.5-10.5 (test code = 775) RED BLOOD CELL COUNT (BEAKER) 3.93 M/ L 3.93-5.22 (test code = 761) HEMOGLOBIN (BEAKER) (test code = 8.9 GM/DL 11.2-15.7 L 410) HEMATOCRIT (BEAKER) (test code = 30.2 % 34.1-44.9 L 411) MEAN CORPUSCULAR VOLUME (BEAKER) 76.8 fL 79.4-94.8 L (test code = 753) MEAN CORPUSCULAR HEMOGLOBIN 22.6 pg 25.6-32.2 L (BEAKER) (test code = 751) MEAN CORPUSCULAR HEMOGLOBIN CONC 29.5 GM/DL 32.2-35.5 L (BEAKER) (test code = 752) RED CELL DISTRIBUTION WIDTH 15.4 % 11.7-14.4 H (BEAKER) (test code = 412) PLATELET COUNT (BEAKER) (test 294 K/CU MM 150-450 code = 756) MEAN PLATELET VOLUME (BEAKER) 11.5 fL 9.4-12.3 (test code = 754) NUCLEATED RED BLOOD CELLS 0 /100 WBC 0-0 (BEAKER) (test code = 413) NEUTROPHILS RELATIVE PERCENT 64 % (BEAKER) (test code = 429) LYMPHOCYTES RELATIVE PERCENT 23 % (BEAKER) (test code = 430) MONOCYTES RELATIVE PERCENT 8 % (BEAKER) (test code = 431) EOSINOPHILS RELATIVE PERCENT 4 % (BEAKER) (test code = 432) BASOPHILS RELATIVE PERCENT 0 % (BEAKER) (test code = 437) NEUTROPHILS ABSOLUTE COUNT 2.53 K/ L 1.56-6.13 (BEAKER) (test code = 670) LYMPHOCYTES ABSOLUTE COUNT 0.93 K/ L 1.18-3.74 L (BEAKER) (test code = 414) MONOCYTES ABSOLUTE COUNT (BEAKER) 0.30 K/ L 0.24-0.36 (test code = 415) EOSINOPHILS ABSOLUTE COUNT 0.15 K/ L 0.04-0.36 (BEAKER) (test code = 416) BASOPHILS ABSOLUTE COUNT (BEAKER) 0.01 K/ L 0.01-0.08 (test code = 417) IMMATURE GRANULOCYTES-RELATIVE 1 % 0-1 PERCENT (BEAKER) (test code = 2801) CT, [id number] 20:37:00Reason for exam:->ABDOMINAL PAINLLQIs the patient ?->UnknownWhat is the patient's sedation requirement?->No SedationSAINT [facility]ANC[facility] : 1980 Sex: FFINAL REPORT CT, ABDOMEN \\T\\ PELVIS, WITHOUT IV CONTRAST CLINICAL HIST ORY: Flank pain, kidney stone suspectedABDOMINAL PAIN Technique: Multiple axial images of the abdomen and pelvis were performed without contrast. Coronal and sagittal reformats obtained. Oral contrast was not administered. This exam was performed according to our departmental dose-optimization program, which includes automated exposure control, adjustment of the mA and/or kV according to patient sizeand/or use of the iterative reconstruction technique. COMPARISON: None. FINDINGS:LOWER CHEST:Bilateral subsegmental pulmonary opacities. LIVER: Hepatomegaly, 25 cm. Nodular liver contour. No focal liver lesion identified.BILIARY SYSTEM: : Cholelithiasis present.PANCREAS: No acute findings. SPLEEN: Splenomegaly, 20 cm.ADRENAL GLANDS: Not well visualized.KIDNEYS URETERS: There are bilateral double-J ureteral stents in satisfactory position. Bilateral nephrolithiasis with dominant right kidney lower pole calculus measuring 1.7 cm and left kidney lower pole 9 mm calculus. Left kidney cortical cyst, 5 mm is too small to characterize. No hydronephrosis.URINARY BLADDER: Distended with ureteral stents.REPRODUCTIVE ORGANS: No acute findings. GASTROINTESTINAL/MESENTERY: No evidence no evidence of bowel obstruction. Poorly characterized in the absence of contrast demonstration. PERITONEUM/RETROPERITONEUM:No free air. Minimal fluid within the pelvis. VESSELS: No acute findings. LYMPH NODES: Extensive retroperitoneal lymphadenopathy versus varicosities.SOFT TISSUES: No acute finding.BONES: No suspicious osseous lesion. Other: None IMPRESSION:ABSENCE OF INTRAVENOUS CONTRAST DECREASES SENSITIVITY FOR DETECTION OF FOCAL LESIONS AND VASCULAR PATHOLOGY. Nephrolithiasis with bilateral ureteral stents in satisfactory position. No hydronephrosis. Hepatosplenomegaly and retroperitoneal lymphadenopathy versus unenhanced varicosities. Differential considerations sequela of portal hypertension/hepatic cirrhosisversus lymphoproliferative disease. When patient condition permits, correlation with enhanced CT abdomen and pelvis examination recommended. Cholelithiasis. Bibasilar subsegmental opacities compatible with infection, scarring or atelectasis. Minimal free pelvic fluid, likely physiologic. Signed: Ky Russell MDReport Verified Date/Time: 05/09/2020 20:37:06 [facility] [id number] 19:29:00 Test Item Value Reference Range Interpretation Comments TOTAL PROTEIN 7.0 gm/dL 6.0-8.3 (BEAKER) (test code = 770) ALBUMIN (BEAKER) 3.1 g/dL 3.5-5.0 L (test code = 1145) ALKALINE PHOSPHATASE 941 U/L 40-150 H (BEAKER) (test code = 346) BILIRUBIN TOTAL 0.3 mg/dL 0.2-1.2 (BEAKER) (test code = 377) SODIUM (BEAKER) (test 137 meq/L 136-145 code = 381) POTASSIUM (BEAKER) 3.6 meq/L 3.5-5.1 (test code = 379) CHLORIDE (BEAKER) 104 meq/L 98-107 (test code = 382) CO2 (BEAKER) (test 25 meq/L 22-29 code = 355) BLOOD UREA NITROGEN 28 mg/dL 7-21 H (BEAKER) (test code = 354) CREATININE (BEAKER) 1.24 mg/dL 0.57-1.25 (test code = 358) GLUCOSE RANDOM 100 mg/dL 70-105 (BEAKER) (test code = 652) CALCIUM (BEAKER) 10.8 mg/dL 8.4-10.2 H (test code = 697) AST (SGOT) (BEAKER) 35 U/L 5-34 H (test code = 353) ALT (SGPT) (BEAKER) 45 U/L 6-55 (test code = 347) EGFR (BEAKER) (test 59 mL/min/1.73 ESTIMA RYANNE GFR IS code = 1092) sq m NOT ACCURATE CREATININE CLEARANCE IN PREDICTING GLOMERULAR FILTRATION RATE . ESTIMATED GFR I S NOT APPLICABLE FOR DIALYSIS PATIEN TS. Sausage Grinder ID - BSURINALYSIS W/ REFLEX URINE [id number] 19:22:00 Test Item Value Reference Range Interpretation Comments COLOR (BEAKER) (test code = 470) Yellow CLARITY (BEAKER) (test code = 469) Hazy SPECIFIC GRAVITY UA (BEAKER) (test 1.016 1.001-1.035 code = 468) PH UA (BEAKER) (test code = 467) 6.0 5.0-8.0 PROTEIN UA (BEAKER) (test code = 100 mg/dL Negative A 464) GLUCOSE UA (BEAKER) [...] RBC UA (BEAKER) (test code = 519) 482 /HPF WBC UA (BEAKER) (test code = 520) 585 /HPF MUCUS (BEAKER) (test code = 1574) Rare SOURCE(BEAKER) (test code = 2795) Sausage Grinder ID - [auto]Sausage Grinder ID - techPREGNANCY SCREEN, [id number] 19:15:00 Test Item Value Reference Range Interpretation Comments TEST URINE (BEAKER) (test Negative code = 583) CBC W/PLT COUNT & AUTO [id number] 19:08:00 Test Item Value Reference Range Interpretation Comments WHITE BLOOD CELL COUNT (BEAKER) 4.4 K/ L 3.5-10.5 (test code = 775) RED BLOOD CELL COUNT (BEAKER) 4.21 M/ L 3.93-5.22 (test code = 761) HEMOGLOBIN (BEAKER) (test code = 9.5 GM/DL 11.2-15.7 L 410) HEMATOCRIT (BEAKER) (test code = 32.4 % 34.1-44.9 L 411) MEAN CORPUSCULAR VOLUME (BEAKER) 77.0 fL 79.4-94.8 L (test code = 753) MEAN CORPUSCULAR HEMOGLOBIN 22.6 pg 25.6-32.2 L (BEAKER) (test code = 751) MEAN CORPUSCULAR HEMOGLOBIN CONC 29.3 GM/DL 32.2-35.5 L (BEAKER) (test code = 752) RED CELL DISTRIBUTION WIDTH 15.4 % 11.7-14.4 H (BEAKER) (test code = 412) PLATELET COUNT (BEAKER) (test 338 K/CU MM 150-450 code = 756) MEAN PLATELET VOLUME (BEAKER) 11.2 fL 9.4-12.3 (test code = 754) NUCLEATED [...] (test code = 437) NEUTROPHILS ABSOLUTE COUNT 2.94 K/ L 1.56-6.13 (BEAKER) (test code = 670) LYMPHOCYTES ABSOLUTE COUNT 0.73 K/ L 1.18-3.74 L (BEAKER) (test code = 414) MONOCYTES ABSOLUTE COUNT (BEAKER) 0.50 K/ L 0.24-0.36 H (test code = 415) EOSINOPHILS ABSOLUTE COUNT 0.19 K/ L 0.04-0.36 (BEAKER) (test code = 416) BASOPHILS ABSOLUTE COUNT (BEAKER) 0.02 K/ L 0.01-0.08 (test code = 417) IMMATURE GRANULOCYTES-RELATIVE 1 % 0-1 PERCENT (BEAKER) (test code = 2801) SARS-COV2/RT-PCR ([facility])2020-03-29 16:15:00 Test Item Value Reference Range Interpretation Comments SARS-COV2/RT-PCR (test Negative Not Detected, Negative, code = 3145994) See external report for linked test SARS-COV-2 PERFORMING LAB [facility] (test code = 6502760) Negative result for this test determines that [...] 564(g) of the Act.Fact Sheet for Healthcare Providers:https://www.TOOVIA/sites/default/files/product/documents/Fact_Shee s_IY_Dpvayhggr_Hize_PFMH-IeZ-6.pdfFact Sheet for Healthcare Patients:https://www.TOOVIA/sites/default/files/product/ documents/Fyjo_Zvxgc_Hfheegze_Rnnl_YMCS-KiC-6.pdfPerforming Laboratory:[facility], [place] [address]UAKOS METABOLIC PANEL 2020-03-22 08:54:00 Test Item Value Reference Range Interpretation [...] 697) EGFR (BEAKER) (test 82 mL/min/1.73 ESTIMA RYANNE GFR IS code = 1092) sq m NOT ACCURATE CREATININE CLEARANCE IN PREDICTING GLOMERULAR FILTRATION RATE . ESTIMATED GFR I S NOT APPLICABLE FOR DIALYSIS PATIEN TS. Sausage Grinder ID - JAYY CCBC W/PLT COUNT & AUTO [id number] 04:04:00 Test Item Value Reference Range Interpretation [...] (BEAKER) (test code = 2801) BASIC METABOLIC [id number] 07:29:00 Test Item Value Reference Range Interpretation [...] 697) EGFR (BEAKER) (test 87 mL/min/1.73 ESTIMA RYANNE GFR IS code = 1092) sq m NOT ACCURATE CREATININE CLEARANCE IN PREDICTING GLOMERULAR FILTRATION RATE . ESTIMATED GFR I S NOT APPLICABLE FOR DIALYSIS PATIEN TS. Sausage Grinder ID - TRISH MCBC W/PLT COUNT & AUTO [id number] 04:59:00 Test Item Value Reference Range Interpretation [...] 2801) FL, FLUORO, NON-SPECIFIC, UP TO 1 [id number] 14:37:00Reason for exam:->CystoscopyFluoroscopic unit utilized for a procedure performed in the OR. No interpretation was requested. Refer to the operative report for findings. Refer to PACS for patient radiation dose information.URINE CULTURE 2020-03-20 09:00:00 Test Item Value Reference Range Interpretation Comments CULTURE (BEAKER) (test A >100, 000 col/mL Blanca code = 1095) glabrataThis is an appended report . These organism result s have been appended to a p reviously final verified report. 50-59,000 col/mL skin floraBASIC METABOLIC [id number] 08:31:00 Test Item Value Reference Range Interpretation [...] 697) EGFR (BEAKER) (test 72 mL/min/1.73 ESTIMA RYANNE GFR IS code = 1092) sq m NOT ACCURATE CREATININE CLEARANCE IN PREDICTING GLOMERULAR FILTRATION RATE . ESTIMATED GFR I S NOT APPLICABLE FOR DIALYSIS PATIEN TS. Sausage Grinder ID - AMANDA FCBC W/PLT COUNT & AUTO [id number] 05:44:00 Test Item Value Reference Range Interpretation [...] PERCENT (BEAKER) (test code = 2801) SARS-COV2/RT-PCR ([facility])2020-03-19 17:29:00 Test Item Value Reference Range Interpretation Comments SARS-COV2/RT-PCR (test code Negative Not Detected, Negative, = 2940819) See external report for linked test SARS-COV-2 PERFORMING LAB [facility] (test code = 9921293) Negative results do not preclude SARS-CoV-2 infection [...] of the Act.Fact Sheet for Healthcare Pro viders:https://www.fsboWOW.MyStream/Documents/Xpert%20Xpress%20SARS%20CoV-2/Fact%20Sh eets/302-3802%04LECN-QIC-5%20HEALTHCARE%20PROVIDERS%20FACT%20SHEET.pdfFact Sheet for Healthcare Patients:https://www.20/20 [employer]MyStream/Documents/Xpert%20Xpress%20SARS%20CoV-2/Fact%20Sheets/302-3801%20SARS-COV -2%20PATIENT%20FACT%20SHEET.pdfPerforming Laboratory:[facility] [place], [place] [address].[place], [place] [address]zAG, quantitative, [id number] 01:48:00 Test Item Value Reference Range Interpretation Comments hCG Quant (test code 2 See_Comment [Autom ated = 48615-4) message] The system which generated this result transmitted reference range : 0 - 10 mIU/mL. The reference range was not used to interpr et this result as normal/abnormal . ELADIA (test code = ELADIA) Non- Females: <10 mIU/mL Females: Gestation Age Reference Range(mIU/mL) 0.2-1 Week 5-50 1-2 Weeks 50-500 2-3 Weeks 100-5,000 3-4 Weeks 500-10,000 4-5 Weeks 1,000-50,000 5-6 Weeks 10,000-100,000 6-8 Weeks 15,000-200,000 2-3 Months 10,000-100,000 Sausage Grinder ID - PIAYA L Lab Interpretation Normal (test code = 23476-0) [facility] CenterHCG, QUANTITATIVE, [id number] 01:48:00 Test Item Value Reference Range Interpretation Comments GONADOTROPIN, CHORIONIC (HCG) QUANT 2 mIU/mL 0-10 (BEAKER) (test code = 649) Non- Females: <10 mIU/mL Females: Gestation Age Reference Range(mIU/mL) 0.2-1 Week 5-50 1-2 Weeks 50-500 2-3 Weeks 100-5,000 3-4Weeks 500-10,000 4-5 Weeks 1,000-50,000 5-6 Weeks 10,000-100,000 6-8 Weeks 15,000-200,000 2-3 Months 10,000-100,000 Sausage Grinder ID - PIAYA L SCREEN, [id number] 07:07:00 Test Item Value Reference Range Interpretation Comments TEST URINE (BEAKER) (test Negative code = 583) BASIC METABOLIC [id number] 05:05:00 Test Item Value Reference Range Interpretation [...] 697) EGFR (BEAKER) (test 71 mL/min/1.73 ESTIMA RYANNE GFR IS code = 1092) sq m NOT ACCURATE CREATININE CLEARANCE IN PREDICTING GLOMERULAR FILTRATION RATE . ESTIMATED GFR I S NOT APPLICABLE FOR DIALYSIS PATIEN TS. Sausage Grinder ID - LACBC W/PLT COUNT & AUTO [id number] 04:38:00 Test Item Value Reference Range Interpretation [...] (BEAKER) (test code = 2801) BASIC METABOLIC [id number] 04:55:00 Test Item Value Reference Range Interpretation [...] 697) EGFR (BEAKER) (test 71 mL/min/1.73 ESTIMA RYANNE GFR IS code = 1092) sq m NOT ACCURATE CREATININE CLEARANCE IN PREDICTING GLOMERULAR FILTRATION RATE . ESTIMATED GFR I S NOT APPLICABLE FOR DIALYSIS PATIEN TS. Sausage Grinder ID - EDASICBC W/PLT COUNT & AUTO [id number] 04:31:00 Test Item Value Reference Range Interpretation [...] H PERCENT (BEAKER) (test code = 2801) BLOOD [id number] 02:00:00 Test Item Value Reference Range Interpretation Comments CULTURE (BEAKER) (test No growth in 5 days code = 1095) BLOOD [id number] 02:00:00 Test Item Value Reference Range Interpretation Comments CULTURE (BEAKER) (test No growth in 5 days code = 1095) SARS-COV2/RT-PCR ([facility])2020-03-15 10:57:00 Test Item Value Reference Range Interpretation Comments SARS-COV2/RT-PCR (test Negative Not Detected, Negative, code = 0180376) See external report for linked test SARS-COV-2 PERFORMING LAB [facility] (test code = 6136064) Negative result for this test determines that [...] 564(g) of the Act.Fact Sheet for Healthcare Providers:https://www.TOOVIA/sites/default/files/product/documents/Fact_Shee e_IF_Zxcqoydtw_Wywj_IXHJ-VdC-2.pdfFact Sheet for Healthcare Patients:https://www.TOOVIA/sites/default/files/product/ documents/Yayu_Yxhak_Ylfhpkbb_Etgq_DATN-FdO-1.pdfPerforming Laboratory:[address].[place], [place] [address]RKF W/PLT COUNT & AUTO [id number] 06:59:00 Test Item Value Reference Range Interpretation [...] (BEAKER) (test code = 2801) BASIC METABOLIC [id number] 06:36:00 Test Item Value Reference Range Interpretation [...] 697) EGFR (BEAKER) (test 66 mL/min/1.73 ESTIMA RYANNE GFR IS code = 1092) sq m NOT ACCURATE CREATININE CLEARANCE IN PREDICTING GLOMERULAR FILTRATION RATE . ESTIMATED GFR I S NOT APPLICABLE FOR DIALYSIS PATIEN TS. Sausage Grinder ID - [id number]/[id number] 06:28:00 Test Item Value Reference Interpretation Comments Range Protime (test code = 14.1 See_Comment [Autom ated 5902-2) message] The system which generated this result transmitted reference range : 11.9 - 14.2 seconds. The reference range was not used to interpret this result as normal/abnormal . INR (test code = 1.13 See_Comment [Automated 2051-6) message] The system which generated this result transmitted reference range : <=5.90. The reference range was not used to interpret this result as normal/abnormal . PTT (test code = 39.4 See_Comment H [Automated 52613-5) message] The system which generated this result transmitted reference range : 22.5 - 36.0 seconds. The reference range was not used to interpret this result as normal/abnormal . ELADIA (test code = Effective 12/10/2018: ELADIA) PT Reference Range ChangeNew: 11.9-14.2 Previous: 11.7-14.7 RECOMMENDED COUMADIN/WARFARIN INR THERAPY RANGESSTANDARD DOSE: 2.0-3.0 Includes: PROPHYLAXIS for venous thrombosis, systemic embolization; TREATMENT for venous thrombosis and/or pulmonary embolus.HIGH RISK: Target INR is 2.5-3.5 for patients wiht mechanical heart valves. Lab Interpretation Abnormal (test code = 63652-8) [facility] CenterPT/[id number] 06:28:00 Test Item Value Reference Range Interpretation [...] for patients wiht mechanical heart valves. SCREEN, [id number] 16:39:00 Test Item Value Reference Range Interpretation Comments TEST URINE (BEAKER) (test Negative code = 583) BASIC METABOLIC [id number] 07:32:00 Test Item Value Reference Range Interpretation [...] 697) EGFR (BEAKER) (test 73 mL/min/1.73 ESTIMA RYANNE GFR IS code = 1092) sq m NOT ACCURATE CREATININE CLEARANCE IN PREDICTING GLOMERULAR FILTRATION RATE . ESTIMATED GFR I S NOT APPLICABLE FOR DIALYSIS PATIEN TS. Sausage Grinder ID - PIAYA LCBC W/PLT COUNT & AUTO [id number] 06:42:00 Test Item Value Reference Range Interpretation [...] (BEAKER) (test code = 2801) BASIC METABOLIC [id number] 04:51:00 Test Item Value Reference Range Interpretation [...] 697) EGFR (BEAKER) (test 68 mL/min/1.73 ESTIMA RYANNE GFR IS code = 1092) sq m NOT ACCURATE CREATININE CLEARANCE IN PREDICTING GLOMERULAR FILTRATION RATE . ESTIMATED GFR I S NOT APPLICABLE FOR DIALYSIS PATIEN TS. Sausage Grinder ID - TRISH MCBC W/PLT COUNT & AUTO [id number] 04:38:00 Test Item Value Reference Range Interpretation [...] PERCENT (BEAKER) (test code = 2801) Urinalysis w/[id number] 10:11:00 Test Item Value Reference Range Interpretation Comments Color, UA (test code Yellow = 5778-6) Clarity, UA (test Hazy code = 5767-9) Specific [place], UA 1.013 1.001-1.035 (test code = 5811-5) pH, UA (test code = 7.0 5.0-8.0 5803-2) Protein, UA (test 70 mg/dL Negative A code = 37471-0) Glucose, UA (test Negative Negative code = 365) Ketones, UA (test Negative Negative code = 2514-8) Bilirubin, UA (test Negative Negative code = 96785-8) Blood, UA (test code Large Negative A = 99226-3) Nitrite, UA (test Negative Negative code = 5802-4) Leukocytes, UA (test Large Negative A code = 5799-2) Urobilinogen, UA 0.2 mg/dL 0.2-1 (test code = 91955-4) RBC, UA (test code = 1139 See_Comment [Autom ated 73930-3) message] The system which generated this result transmitted reference range : /HPF. The reference range was not used to interpret this result as normal/abnormal . WBC, UA (test code = 370 See_Comment Moderat e WBC 5821-4) clumps. [Automated message] The system which generated this result transmitted reference range : /HPF. The reference range was not used to interpret this result as normal/abnormal . Mucus (test code = Occasional 8247-9) Squam Epithel, UA 2 See_Comment [Automate d (test code = 13240-7) shaunaag e] The system which generated this result transmitted reference range : /HPF. The reference range was not used to interpret this result as normal/abnormal . Specimen Source (test code = 2795) ELADIA (test code = ELADIA) Sausage Grinder ID - [auto]Sausage Grinder ID - tech Lab Interpretation Abnormal (test code = 67174-4) [facility] CenterURINALYSIS W/ [id number] 10:11:00 Test Item Value Reference Range Interpretation [...] = 516) SOURCE(BEAKER) (test code = 2795) Sausage Grinder ID - [auto]Sausage Grinder ID - techType and screen, [id number] 06:29:00 Test Item Value Reference Range Interpretation Comments ABO/RH AUTOMATED (BEAKER) (test O POSITIVE code = 2260) Ab Scrn (test code = 890-4) NEGATIVE [facility] METABOLIC [id number] 05:53:00 Test Item Value Reference Range Interpretation [...] 697) EGFR (BEAKER) (test 67 mL/min/1.73 ESTIMA RYANNE GFR IS code = 1092) sq m NOT ACCURATE CREATININE CLEARANCE IN PREDICTING GLOMERULAR FILTRATION RATE . ESTIMATED GFR I S NOT APPLICABLE FOR DIALYSIS PATIEN TS. Sausage Grinder ID - EDASICBC W/PLT COUNT & AUTO [id number] 05:27:00 Test Item Value Reference Range Interpretation [...] H PERCENT (BEAKER) (test code = 2801) PROTHROMBIN TIME/[id number] 05:23:00 Test Item Value Reference Range Interpretation [...] is2.5-3.5 for patients wiht mechanical heart valves.SARS-COV2/RT-PCR ([facility]) 2020-03-10 23:21:00 Test Item Value Reference Range Interpretation Comments SARS-COV2/RT-PCR (test code Negative Not Detected, Negative, = 2831370) See external report for linked test SARS-COV-2 PERFORMING LAB [facility] (test code = 6041747) Negative results do not preclude SARS-CoV-2 infection [...] of the Act.Fact Sheet for Healthcare Pro viders:https://www.[employer]/Documents/Xpert%20Xpress%20SARS%20CoV-2/Fact%20Sh eets/3023802%74MASN-TVW-0%20HEALTHCARE%20PROVIDERS%20FACT%20SHEET.pdfFact Sheet for Healthcare Patients:https://www.[employer]/Documents/Xpert%20Xpress%20SARS%20CoV-2/Fact%20Sheets/3023801%20SARS-COV -2%20PATIENT%20FACT%20SHEET.pdfPerforming Laboratory:[facility], [place] [address]Q/S, RENAL, [id number] 22:46:00 Reason for exam:->FEVERFINAL REPORT Ultrasound of [...] nephrocalcinosis cannot be excluded. Signed: Cruzito Nowak Verified Date/Time: 03/10/2020 22:46:18 US renal [id number] 22:46:00Interface, External Ris In - 03/10/2020 10:48 [...] nephrocalcinosis cannot be excluded. Signed: Cruzito Nowak Verified Date/Time: 03/10/2020 22:46:18 [facility] HospitalCOMPREHENS[facility] METABOLIC [id number] 22:36:00 Test Item Value Reference Range Interpretation [...] 347) EGFR (BEAKER) (test 62 mL/min/1.73 ESTIMA RYANNE GFR IS code = 1092) sq m NOT ACCURATE CREATININE CLEARANCE IN PREDICTING GLOMERULAR FILTRATION RATE . ESTIMATED GFR I S NOT APPLICABLE FOR DIALYSIS PATIEN TS. Sausage Grinder ID - NTPSpecimen slightly lipemicPREGNANCY SCREEN, [id number] 20:16:00 Test Item Value Reference Range Interpretation Comments TEST URINE (BEAKER) (test Negative code = 583) Lactic acid, [id number] 19:13:00 Test Item Value Reference Range Interpretation Comments Lactate, Venous (test code 0.91 mmol/L 0.5-2.2 = 2872) ELADIA (test code = ELADIA) Sausage Grinder ID - NTP Lab Interpretation (test Normal code = 86204-2) [facility] CenterLACTIC ACID, [id number] 19:13:00 Test Item Value Reference Range Interpretation Comments LACTATE BLOOD VENOUS (2) (BEAKER) 0.91 mmol/L 0.50-2.20 (test code = 2872) Sausage Grinder ID - NTPRAD, ABDOMEN/KUB, 1 VIEW [id number] 19:03:00Reason for exam:->FEVERFINAL REPORT TECHNIQUE: RAD, CHEST, [...] MDReport Verified Date/Time: 03/10/2020 19:03:48 Reading Location: [address] Transitional Reading Room RAD, CHEST, 1 VIEW, NON [id number] 19:03:00Reason for exam:->FEVERShould this be performed at [...] MDReport Verified Date/Time: 03/10/2020 19:03:48 Reading Location: [facility] Transitional Reading Room XR abdomen / KUB 1 [id number] 19:03:00 Interface, External Ris In - 03/10/2020 [...] MDReport Verified Date/Time: 03/10/2020 19:03:48 Reading Location: [facility] B1 C013T Transitional Reading Room [facility]XR [facility] 1 view portable / [id number] 19:03:00Interface, External Ris In - 03/10/2020 7:05 [...] MDReport Verified Date/Time: 03/10/2020 19:03:48 Reading Location: [address] Transitional Reading Room [facility] METABOLIC [id number] 17:55:00 Test Item Value Reference Range Interpretation [...] 697) EGFR (BEAKER) (test 66 mL/min/1.73 ESTIMA RYANNE GFR IS code = 1092) sq m NOT ACCURATE CREATININE CLEARANCE IN PREDICTING GLOMERULAR FILTRATION RATE . ESTIMATED GFR I S NOT APPLICABLE FOR DIALYSIS PATIEN TS. Sausage Grinder ID - NTPURINALYSIS W/ REFLEX URINE [id number] 17:40:00 Test Item Value Reference Range Interpretation [...] = 1574) Rare SOURCE(BEAKER) (test code = 0075) Sausage Grinder ID - [auto]Sausage Grinder ID - hankCBC W/PLT COUNT & AUTO DIFFERENTIAL 2020-03-10 17:34:00 [...] (BEAKER) (test code = 2801) Pancreatic elastase, [id number] 19:39:00 Test Item Value Reference Interpretation Comments Range Pancreatic >500 mcg/g Adult and Pedi atric Elastase (test Reference Ran ges for code = 92641-2) Pancreatic E lastase-1: Nor mal: >200 mcg/gMode rate Pancreatic Insufficiency: 100-200 mcg/g Severe Pancreatic Insufficiency: <100 mcg/g Elas tase-1 (E-1) assay res ults are expressedin mcg /g, which represent mcg E1/g feces. It is not necessary to in terrupt enzymesubstitut ion therapy. ELADIA (test code = Performing Lab ELADIA) EZ [employer] [place] [address] [place] [address] Tati Wallace MD, PhD, KATHRYN [facility] CenterFecal fat, [id number] 15:50:00 Test Item Value Reference Range Interpretation Comments Total Weight 5 g (test code = 6824724) Collection Time NOT GIVEN h Hrs (test code = 3996406) Fecal Lipids, SEE BELOW See_Comment RESULT: No co llection Total (test code [...] perf ormance characteristics havebeen determ ined by [employer] [facility] .It has not been cleare d or approved by FDA . This assay has been validatedpursua nt to the CLIA regula tions and is used for clinical purpos es. [Automated mess age] The system [employer] generated this result transmitted ref erence range: <7 g/24 h. The reference range was not used to int erpret this result as normal/abnormal . ELADIA (test code = Performing Lab ELADIA) EZ [employer] [place] [address] [place] [address] Tati Wallace MD, PhD, KATHRYN [facility] CenterBLOOD [id number] 21:00:00 Test Item Value Reference Range Interpretation Comments CULTURE (BEAKER) (test No growth in 5 days code = 1095) BLOOD [id number] 21:00:00 Test Item Value Reference Range Interpretation Comments CULTURE (BEAKER) (test No growth in 5 days code = 1095) Surgically obtained culture + gram [id number] 09:20:00 Test Item Value Reference Interpretation Comments [...] ELADIA) Lab Interpretation Abnormal (test code = 98342-5) [facility]UR[facility] OB[facility] + GRAM [id number] 09:20:00 Test Item Value Reference Range Interpretation [...] negative RESULT (BEAKER) rods (test code = 826713) SURGICALLY OBTAINED CULTURE + GRAM [id number] 09:20:00 Test Item Value Reference Range Interpretation [...] negative RESULT (BEAKER) rods (test code = 850032) SURGICALLY OBTAINED CULTURE + GRAM [id number] 09:20:00 Test Item Value Reference Range Interpretation Comments CULTURE (BEAKER) A From Broth Only (test code = Prevotella bivi a 1095) GRAM STAIN RESULT 4+ WBCs (BEAKER) (test code = 1123) GRAM STAIN RESULT 4+ gram negative (BEAKER) (test rods code = 82017) [id number] 04:43:00 Test Item Value Reference Range Interpretation Comments MAGNESIUM (BEAKER) (test code = 1.8 mg/dL 1.6-2.6 627) Sausage Grinder ID - EDASIBASIC METABOLIC [id number] 04:43:00 Test Item Value Reference Range Interpretation [...] 697) EGFR (BEAKER) (test 49 mL/min/1.73 ESTIMA RYANNE GFR IS code = 1092) sq m NOT ACCURATE CREATININE CLEARANCE IN PREDICTING GLOMERULAR FILTRATION RATE . ESTIMATED GFR I S NOT APPLICABLE FOR DIALYSIS PATIEN TS. Sausage Grinder ID - EDASICBC W/PLT COUNT & AUTO [id number] 04:15:00 Test Item Value Reference Range Interpretation [...] code = 2801) Stool culture + Shiga [id number] 10:04:00 Test Item Value Reference Range Interpretation Comments Result (test code = No Salmonella, Shigella or 6463-4) Campylobacter isolated ELADIA (test code = Unable to test for Shiga ELADIA) Toxin 1 due to insufficient growth of specimen.Unable to test for Shiga Toxin 2 due to insufficient growth of specimen.Resubmit new specimen if clinically indicated. [facility]TOOL C[facility]URE + SHIGA [id number] 10:04:00 Test Item Value Reference Range Interpretation [...] H PERCENT (BEAKER) (test code = 2801) [id number] 05:37:00 Test Item Value Reference Range Interpretation Comments MAGNESIUM (BEAKER) (test code = 2.0 mg/dL 1.6-2.6 627) Sausage Grinder ID - TRISH MBASIC METABOLIC [id number] 05:37:00 Test Item Value Reference Range Interpretation [...] 697) EGFR (BEAKER) (test 42 mL/min/1.73 ESTIMA RYANNE GFR IS code = 1092) sq m NOT ACCURATE CREATININE CLEARANCE IN PREDICTING GLOMERULAR FILTRATION RATE . ESTIMATED GFR I S NOT APPLICABLE FOR DIALYSIS PATIEN TS. [facility] ID - [facility] [id number] 11:24:00 Test Item Value Reference Range Interpretation Comments Pathogen exam charged (test code = Done 2381) [facility] PATH [id number] 11:24:00 Test Item Value Reference Range Interpretation Comments PATHOGEN EXAM CHARGED (BEAKER) (test Done code = 2381) [id number] 07:46:00 Test Item Value Reference Range Interpretation Comments MAGNESIUM (BEAKER) (test code = 2.1 mg/dL 1.6-2.6 627) Sausage Grinder ID - DBBASIC METABOLIC [id number] 07:46:00 Test Item Value Reference Range Interpretation [...] 697) EGFR (BEAKER) (test 33 mL/min/1.73 ESTIMA RYANNE GFR IS code = 1092) sq m NOT ACCURATE CREATININE CLEARANCE IN PREDICTING GLOMERULAR FILTRATION RATE . ESTIMATED GFR I S NOT APPLICABLE FOR DIALYSIS PATIEN TS. Sausage Grinder ID - DBVITAMIN D, [id number] 07:30:00 Test Item Value Reference Range Interpretation Comments VITAMIN D 25-OH (BEAKER) (test code 6.2 ng/mL 6.6-49.9 L = 2764) Effective 04/24/2017: Reference Range ChangeNew: 6.6-49.9 ng/mL Previous: 13.0-47.8 ng/mLRecommended Vitamin D Target Range: 30.0-40.0 ng/mLOperator ID - DBTSH/Free T4 If [id number] 07:19:00 Test Item Value Reference Range Interpretation Comments TSH (test code = 1.404 See_Comment [Automated 44035-2) message] The system which generated this result transmit ryanne reference range : 0.350 - 4.940 uIU/mL. The reference range was not used to interpret this result as normal/abnormal . ELADIA (test code = ELADIA) Sausage Grinder ID - DB Lab Interpretation Normal (test code = 83539-3) [facility] [id number] 07:19:00 Test Item Value Reference Range Interpretation Comments THYROID STIMULATING HORMONE 1.404 uIU/mL 0.350-4.940 (BEAKER) (test code = 772) Sausage Grinder ID - DBCBC W/PLT COUNT & AUTO [id number] 07:03:00 Test Item Value Reference Range Interpretation [...] (test code = 2801) Clostridium difficile GDH [id number] 01:09:00 Test Item Value Reference Range Interpretation Comments C. Difficle Toxin Negative Negative (test code = 1619421175) C. Difficile GDH Negative Negative No indicati on of Antigen (test code = Clostri dium 8479527571) difficile infection and n o colonization. Discontinue enteric isolati on and therapy. ELADIA (test code = Testing performed ELADIA) by Ale[employer] Rapid Cassette Assay. For GDH, published sensitivity of the assay is 98.7% compared to cytotoxicity testing. For Toxin AB, published sensitivity is 87.8% and specificity 99.4% compared to cytotoxicity testing.Verificati on of kit performance was done by the [facility] Microbiology Lab prior to clinical use. Lab Interpretation Normal (test code = 54542-9) [facility]. DIFFICILE GDH [id number] 01:09:00 Test Item Value Reference Range Interpretation Comments CDT TOXIN (test code Negative Negative = 4590590641) CDT GDH ANTIGEN (test Negative Negative No ind ication of code = 1271023475) Clostridi um difficile infection and n o colonization. Discontinue ent duke isolation and t herapy. Testing performed by Alere Rapid Cassette Assay. For GDH, published sensitivity of the assay is 98.7% compared to cytotoxicity testing. For Toxin AB, published sensitivity is 87.8% and specificity 99.4% compared to cytotoxicity testing.Verification of kit performance was done by the [facility] Microbiology Lab prior to clinical use.ABORH, [id number] 06:59:00 Test Item Value Reference Range Interpretation Comments ABO Grouping (test code = 2588) O Rh Factor (test code = 2589) POS [id number] 05:03:00 Test Item Value Reference Range Interpretation Comments MAGNESIUM (BEAKER) (test code = 1.9 mg/dL 1.6-2.6 627) Sausage Grinder ID - EDASIBASIC METABOLIC [id number] 05:03:00 Test Item Value Reference Range Interpretation [...] 697) EGFR (BEAKER) (test 30 mL/min/1.73 ESTIMA RYANNE GFR IS code = 1092) sq m NOT ACCURATE CREATININE CLEARANCE IN PREDICTING GLOMERULAR FILTRATION RATE . ESTIMATED GFR I S NOT APPLICABLE FOR DIALYSIS PATIEN TS. Sausage Grinder ID - [id number] 04:59:00 Test Item Value Reference Range Interpretation Comments PARTIAL THROMBOPLASTIN TIME 47.6 seconds 22.5-36.0 H (BEAKER) (test code = 760) PROTHROMBIN TIME/[id number] 04:58:00 Test Item Value Reference Range Interpretation [...] mechanical heart valves.CBC W/PLT COUNT & AUTO [id number] 04:57:00 Test Item Value Reference Range Interpretation [...] PERCENT (BEAKER) (test code = 2801) FL, BEEF PUSHER IN OR/30 MINUTE [id number] 00:24:46Reason for exam:- >PT HAVING CYSTO/ STENT IN ORFluoroscopic unit utilized for a procedure performed in the OR. No interpretation was requested. Refer to the operative report for findings. Refer to PACS for patient radiation dose information.FL bag grader in or 30 minute [id number] 00:03:00Interface, External Ris In - 02/22/2020 6:08 PM CDTFluoroscopic unit utilized for a procedure performed in the OR. No interpretation was requested. Refer to the operative report for findings. Referto PACS for patient radiation dose information.[facility])2020-02-21 21:52:00 Test Item Value Reference Range Interpretation Comments SARS-COV2/RT-PCR (test code Negative Not Detected, Negative, = 1509915) See external report for linked test SARS-COV-2 PERFORMING LAB [facility] (test code = 6943197) Negative results do not preclude SARS-CoV-2 infection [...] of the Act.Fact Sheet for Healthcare Pro viders:https://www.fsboWOW.MyStream/Documents/Xpert%20Xpress%20SARS%20CoV-2/Fact%20Sh eets/165-7352%74WEBE-BCQ-3%20HEALTHCARE%20PROVIDERS%20FACT%20SHEET.pdfFact Sheet for Healthcare Patients:https://www.20/20 [employer]MyStream/Documents/Xpert%20Xpress%20SARS%20CoV-2/Fact%20Sheets/3023801%20SARS-COV -2%20PATIENT%20FACT%20SHEET.pdfPerforming Laboratory:[place] [address], [place] [address]ITZTLDFZV SCREEN, [id number] 21:36:00 Test Item Value Reference Range Interpretation Comments TEST URINE (BEAKER) (test Negative code = 583) COMPREHENSIVE METABOLIC [id number] 20:08:00 Test Item Value Reference Range Interpretation [...] 347) EGFR (BEAKER) (test 26 mL/min/1.73 ESTIMA RYANNE GFR IS code = 1092) sq m NOT ACCURATE CREATININE CLEARANCE IN PREDICTING GLOMERULAR FILTRATION RATE . ESTIMATED GFR I S NOT APPLICABLE FOR DIALYSIS PATIEN TS. Sausage Grinder SANTANA PATEL FLACTIC ACID, [id number] 20:01:00 Test Item Value Reference Range Interpretation Comments LACTATE BLOOD VENOUS (2) (BEAKER) 1.25 mmol/L 0.50-2.20 (test code = 2872) Sausage Grinder SANTANA - AMANDA [id number] 20:00:00 Test Item Value Reference Range Interpretation [...] mechanical heart valves.CBC W/PLT COUNT & AUTO [id number] 19:56:00 Test Item Value Reference Range Interpretation [...] code = 2801) URINALYSIS W/ REFLEX URINE [id number] 19:44:00 Test Item Value Reference Range Interpretation [...] 1585) Few SOURCE(BEAKER) (test code = 2795) Sausage Grinder ID - [auto]Sausage Grinder ID - techCHEST 2 VIEW*GP*2019-05-07 12:30:41Exam: Chest x-ray 2 viewsHISTORY: SarcoidosisLocation: [id number]:The heart size is normal with diffuse interstitial [...]
[2020-10-18 13:24] LABS: Urine Blood 2+ (Negative); Urine Glucose Negative (Negative); Urine Protein 2+ (Negative); Urine pH 8.5 (5.0-7.0)
[2020-10-18 13:46] LABS: Absolute Lymphocytes (CBC) 0.7 K/uL (0.7-4.9); Basophils % 0.5 % (0-1.3); Hematocrit 33.8 % (36.0-45.0); Lymphocytes % 13.4 % (15.3-44.8); MPV 7.6 fL (7.6-11.3); RBC Red Blood Cell Count 4.81 M/uL (3.86-4.86)
[2020-10-18] MEDS ORDERED: ONDANSETRON 4 MG/2 ML VIAL ONE (13:50)
[2020-10-18] MEDS ORDERED: KETOROLAC 30 MG/ML INJ ONE (13:51)
[2020-10-18] MEDS ORDERED: NA CHLORIDE 0.9% 1,000 ML ONE (13:51)
--- NOTE | 2020-10-18 14:04 | RAD REPORT ---
EXAM DESCRIPTION: CT - Stone Protocol - 10/18/2020 1:38 pm CLINICAL HISTORY: Flank pain. FLANK PAIN COMPARISON: Stone Protocol dated 02/21/2020 TECHNIQUE: Axial images were obtained without oral or IV contrast. Lack of contrast limits solid org an and vascular assessment. The [id number]-dw-dqjl spans the entirety of the system partially obscuring uppermost abdomen and lung bases. Coronal reformatted images were obtained and reviewed. All CT scans are performed using dose optimization technique as appropriate and may include automated exposure control or mA/KV adjustment according to patient size. FINDINGS: Chronic scarring changes are present in both lung bases, greater right. The liver and spleen are enlarged.Cholelithiasis. The pancreas and adrenal glands are normal. Enlarge d lymph nodes are present in para-aortic region on the right measuring 22 mm and the left measuring 1 5 mm. Multiple stones are present in both kidneys, on the right heart with was in the inferior pole measuri ng 12 mm. Multiple caliceal stones on the left are present as well. Moderate left hydronephrosis is s een. 2 stones are present in proximal left ureter left UPJ, the larger measuring 6 mm. 3 mm stone is suspected in the proximal right ureter. No significant right-sided hydronephrosis. No bowel obstruction, free air, free fluid or abscess. Normal appendix noted. Mild to moderate lumbosacral degenerative changes. IMPRESSION: Bilateral nephrolithiasis with moderate left hydronephrosis and proximal hydroureter. Th ere are 2 stones present in the proximal left ureter. Small 3 mm stone is suspected proximal right ur eter. Enlarged lymph nodes are seen in the para-aortic region bilaterally. Mild reactive etiology is possib le, lymphoma can also have this appearance. PET-CT followup assessment may be of value. Hepatosplenomegaly. Cholelithiasis.
[2020-10-18 14:13] LABS: Potassium 3.8 mmol/L (3.5-5.1)
[2020-10-18 14:18] LABS: Urine Amorphous Sediment 4+ /HPF (NONE SEEN); Urine Bacteria <20 /HPF (<20)
[2020-10-18] MEDS ORDERED: MAGNESIUM SULFATE 1 gm IVPB 1 GM/100 ML BAG IV ONE (14:36)
[2020-10-18] MEDS ORDERED: TAMSULOSIN 0.4 MG SR CAP ONE (14:36)
--- NOTE | 2020-10-18 15:10 | EDPHYS ---
Physician Documentation [facility] Name: Rosa M Magallanes Age: 40 yrs Sex: Female : 1980 Arrival Date: 10/18/2020 Time: 09:07 Bed 15 Private MD: Verito Villegas ED Physician Chris Bansal HPI: 10/18 17:55 This 40 yrs old Black Female presents to ER via Ambulatory with complaints of Kidney kb Pain. 17:56 The patient complains of pain in the left flank. The pain radiates to the abdomen. kb Onset: The symptoms/episode began/occurred 4 day(s) ago. Modifying factors: The symptoms are alleviated by nothing. the symptoms are aggravated by nothing. Associated signs and symptoms: Pertinent positives: urinary frequency, nausea. Severity of pain: At its worst the pain was moderate in the emergency department the pain is unchanged. The patient has experienced similar episodes in the past, multiple times. The patient has not recently seen a physician. Pt reports left flank pain and urinary frequency that started 4 days ago. States pain is similar to previous kidney stones. Historical: - Allergies: 09:30 Iodine; hb - Home Meds: 09:30 Breo Ellipta 100-25 mcg/dose inhalation dsdv 1 puff once daily [Active]; clindamycin hb HCl 300 mg Oral cap 1 cap daily [Active]; Iron CR 65 mg Oral daily [Active]; iron, allergy pill, z pack, prednisone 20mg daily [Active]; multivitamin Oral cap daily [Active]; prednisone 40 mg Oral tab 1 tab 2 times per day [Active]; - PMHx: 09:30 Hypertension; Kidney stones; SARCODOSIS; hb - PSHx: 09:30 Stents - Kidney stones; hb - Immunization history:: Adult Immunizations up to date. - Social history:: Smoking status: Patient denies any tobacco usage or history of. ROS: 16:18 Constitutional: Negative for fever, chills, and weight loss, Cardiovascular: Negative kb for chest pain, palpitations, and edema, Respiratory: Negative for shortness of breath, cough, wheezing, and pleuritic chest pain, MS/Extremity: Negative for injury and deformity, Skin: Negative for injury, rash, and discoloration, Neuro: Negative for headache, weakness, numbness, tingling, and seizure. 17:54 Abdomen/GI: Positive for nausea. kb 17:54 : Positive for flank pain, urinary frequency. Exam: 17:54 Constitutional: This is a well developed, well nourished patient who is awake, alert, kb and in no acute distress. Head/Face: Normocephalic, atraumatic. Cardiovascular: Regular rate and rhythm with a normal S1 and S2. No gallops, murmurs, or rubs. No pulse deficits. Respiratory: Respirations even and unlabored. No increased work of breathing, no retractions or nasal flaring. Abdomen/GI: Soft, non-tender. No distention Skin: Warm, dry with normal turgor. Normal color. MS/ Extremity: Pulses equal, no cyanosis. Neurovascular intact. Full, normal range of motion. Neuro: Awake and alert, GCS 15, oriented to person, place, time, and situation. Moves all extremities. Normal gait. 17:54 Back: CVA tenderness, that is mild, that is moderate, is noted on the left. Vital Signs: 09:27 BP 127 / 91; Pulse 107; Resp 16; Temp 98.9(TE); Pulse Ox 96% on R/A; Pain 7/10; hb 13:49 BP 106 / 76; Pulse 85; Resp 14; Pulse Ox 100% on R/A; vg1 15:15 BP 104 / 67; Pulse 86; Resp 14; Pulse Ox 100% on R/A; vg1 MDM: 13:18 Patient medically screened. kb 16:18 Data reviewed: vital signs, nurses notes. Data interpreted: Pulse oximetry: on room air kb is 100 %. Interpretation: normal. Counseling: I had a detailed discussion with the patient and/or guardian regarding: the historical points, exam findings, and any diagnostic results supporting the discharge/admit diagnosis, lab results, radiology results, the need for outpatient follow up, a urologist, to return to the emergency department if symptoms worsen or persist or if there are any questions or concerns that arise at home. ED course: Pain controlled prior to discharge. Pt states she has urologist in [place] that she will follow up with this week. . 10/18 13:23 Order name: Urine Dipstick-Ancillary; Complete Time: 13:25 EDMS 10/18 13:24 Order name: Basic Metabolic Panel kb 10/18 13:24 Order name: CBC with Diff kb 10/18 13:24 Order name: Urine Microscopic Only kb 10/18 13:25 Order name: Basic Metabolic Panel; Complete Time: 14:15 EDMS 10/18 13:25 Order name: CBC with Automated Diff; Complete Time: 14:06 EDMS 10/18 13:25 Order name: Urine Microscopic Only; Complete Time: 14:21 EDMS 10/18 13:25 Order name: CT Stone Protocol; Complete Time: 14:06 kb 10/18 13:25 Order name: Urine --Ancillary (enter results) bd 10/18 14:19 Order name: Urine Culture EDMS 10/18 13:12 Order name: EKG; Complete Time: 13:13 sv 10/18 13:12 Order name: EKG - Nurse/Tech; Complete Time: 13:12 sv 10/18 13:24 Order name: IV Saline Lock; Complete Time: 13:38 kb 10/18 13:24 Order name: Labs collected and sent; Complete Time: 13:38 kb Administered Medications: 13:50 Drug: NS 0.9% 1000 ml Route: IV; Rate: 1000 ml; Site: right antecubital; sr5 15:45 Follow up: IV Status: Completed infusion; IV Intake: 1000ml vg1 13:54 Drug: Zofran (Ondansetron) 4 mg Route: IVP; Site: right antecubital; sr5 15:15 Follow up: Response: No adverse reaction; Nausea is decreased vg1 13:58 Drug: TORadol - Ketorolac 15 mg Route: IVP; Site: right antecubital; sr5 15:15 Follow up: Response: No adverse reaction; Pain is decreased vg1 14:28 Drug: Magnesium Sulfate 1 grams Route: IVPB; Infused Over: 30 mins; Site: right vg1 antecubital; 15:14 Follow up: IV Status: Completed infusion; IV Intake: 100ml vg1 14:28 Drug: Flomax 0.4 mg Route: PO; vg1 15:14 Follow up: Response: No adverse reaction vg1 15:14 Drug: morphine 4 mg {Note: rass0.} Route: IVP; Site: right antecubital; vg1 15:44 Follow up: Response: No adverse reaction; Pain is decreased vg1 Point of Care Testing: Urine : 13:38 hCG Reading: Negative; Control Reading: Positive; jp3 Disposition: 16:33 Co-signature as Attending Physician, Chris Bansal MD. rn Disposition: 10/18/20 15:09 Discharged to Home. Impression: Calculus of kidney and ureter. - Condition is Stable. - Discharge Instructions: Kidney Stones, [id number], Dietary Guidelines to Help Prevent Kidney Stones. - Prescriptions for Tylenol- Codeine #3 300-30 mg Oral Tablet - take 2 tablets by ORAL route every 6 hours As needed; 16 tablet. Zofran 4 mg Oral Tablet - take 1 tablet by ORAL route every 6 hours As needed; 20 tablet. Flomax 0.4 mg Oral Capsule, Sust. Release 24 hr - take 1 capsule by ORAL route once daily; 10 capsule. Diclofenac Sodium 75 mg Oral Tablet, Delayed Release (E.C.) - take 1 tablet by ORAL route 2 times per day As needed; 30 tablet. - Medication Reconciliation Form, Thank You Letter, Antibiotic Education, Prescription Opioid Use form. - Follow up: Emergency Department; When: As needed; Reason: Worsening of condition. Follow up: Private Physician; When: 2 - 3 days; Reason: Recheck today's complaints, Continuance of care, Re-evaluation by your physician. Signatures: Dispatcher [employer] EDMS Marisol Cisneros, GARCÍA-C SQUARING SHEAR OPERATOR-Verito Razo, RN RN Chris German MD MD rn Baxter, Heather RN ARY Maciej Moss RN RN sr5 Vanita Gerardo, RN RN vg1 Corrections: (The following items were deleted from the chart) 15:45 15:09 10/18/2020 15:09 Discharged to Home. Impression: Calculus of kidney and ureter. vg1 Condition is Stable. Forms are Medication Reconciliation Form, Thank You Letter, Antibiotic Education, Prescription Opioid Use. Follow up: Emergency Department; When: As needed; Reason: Worsening of condition. Follow up: Private Physician; When: 2 - 3 days; Reason: Recheck today's complaints, Continuance of care, Re-evaluation by your physician. kb 17:54 16:18 Constitutional: Negative for fever, chills, and weight loss, kb kb
--- NOTE | 2020-10-18 15:10 | ER ---
Nurse's Notes [facility] Name: Rosa M Magallanes Age: 40 yrs Sex: Female : 1980 Arrival Date: 10/18/2020 Time: 09:07 Bed 15 Private MD: Verito Villegas Diagnosis: Calculus of kidney and ureter Presentation: 10/18 09:27 Chief complaint: Left flank pain, decreased appetite, nausea, and diarrhea x 2 days. Hx hb of kidney stones. Coronavirus screen: At this time, the client does not indicate any symptoms associated with coronavirus-19. Ebola Screen: No symptoms or risks identified at this time. Initial Sepsis Screen: Does the patient meet any 2 criteria? HR > 90 bpm. No. Patient's initial sepsis screen is negative. Does the patient have a suspected source of infection? No. Patient's initial sepsis screen is negative. Risk Assessment: Do you want to hurt yourself or someone else? Patient reports no desire to harm self or others. Onset of symptoms was October 16, 2020. 09:27 Method Of Arrival: Ambulatory hb 09:27 Acuity: EUGENIA 3 hb Historical: - Allergies: 09:30 Iodine; hb - Home Meds: 09:30 Breo Ellipta 100-25 mcg/dose inhalation dsdv 1 puff once daily [Active]; clindamycin hb HCl 300 mg Oral cap 1 cap daily [Active]; Iron CR 65 mg Oral daily [Active]; iron, allergy pill, z pack, prednisone 20mg daily [Active]; multivitamin Oral cap daily [Active]; prednisone 40 mg Oral tab 1 tab 2 times per day [Active]; - PMHx: 09:30 Hypertension; Kidney stones; SARCODOSIS; hb - PSHx: 09:30 Stents - Kidney stones; hb - Immunization history:: Adult Immunizations up to date. - Social history:: Smoking status: Patient denies any tobacco usage or history of. Screenin:49 Abuse screen: Denies threats or abuse. Nutritional screening: No deficits noted. vg1 Tuberculosis screening: No symptoms or risk factors identified. Fall Risk No fall in past 12 months (0 pts). No secondary diagnosis (0 pts). IV access (20 points). Ambulatory Aid- None/Bed Rest/Nurse Assist (0 pts). Gait- Normal/Bed Rest/Wheelchair (0 pts) Mental Status- Oriented to own ability (0 pts). Total Ferguson Fall Scale indicates No Risk (0-24 pts). Assessment: 13:47 General: Appears in no apparent distress. comfortable, Behavior is calm, cooperative. vg1 Pain: Complains of pain in Left side flank pain Pain currently is 9 out of 10 on a pain scale. Pain began 2-3 days ago. Neuro: Level of Consciousness is awake, alert, obeys commands, Oriented to person, place, time, situation. Cardiovascular: Patient's skin is warm and dry. Respiratory: Airway is patent Respiratory effort is even, unlabored. GI: Reports nausea, Patient currently denies diarrhea, vomiting. : Reports burning with urination, urgency, Pt states Urine is 'cloudy and has an odor to it.'. EENT: No signs and/or symptoms were reported regarding the EENT system. Derm: Skin is intact, is healthy with good turgor. Musculoskeletal: Circulation, motion, and sensation intact. 15:08 Reassessment: Received VO from KELLIE Cisneros to administer 4 mg of Morphine IVP x1. vg1 15:15 Reassessment: Patient appears in no apparent distress at this time. No changes from vg1 previously documented assessment. Patient and/or family updated on plan of care and expected duration. Pain level reassessed. Patient is alert, oriented x 3, equal unlabored respirations, skin warm/dry/pink. Vital Signs: 09:27 BP 127 / 91; Pulse 107; Resp 16; Temp 98.9(TE); Pulse Ox 96% on R/A; Pain 7/10; hb 13:49 BP 106 / 76; Pulse 85; Resp 14; Pulse Ox 100% on R/A; vg1 15:15 BP 104 / 67; Pulse 86; Resp 14; Pulse Ox 100% on R/A; vg1 ED Course: 09:07 Patient arrived in ED. mr 09:08 Verito Villegas is Private Physician. mr 09:29 Triage completed. hb 09:30 Arm band placed on. hb 11:43 Marisol Cisneros FNP-C is PHCP. kb 11:43 Chris Bansal MD is Attending Physician. kb 13:12 EKG completed in triage. Results shown to . sv 13:18 Marisol Cisneros FNP-C is PHCP. kb 13:18 Chris Bansal MD is Attending Physician. kb 13:21 Urine collected: clean catch specimen, clear, skye colored. jp3 13:29 Vanita Gerardo, RN is Primary Nurse. vg1 13:37 CT Stone Protocol In Process Unspecified. EDMS 13:37 Initial lab(s) drawn, by me, sent to lab. Inserted saline lock: 20 gauge in right jp3 antecubital area, using aseptic technique. Blood collected. 13:49 Patient has correct armband on for positive identification. Placed in gown. Bed in low vg1 position. Call light in reach. Side rails up X 1. 14:54 Urine Microscopic Only Sent. sv 14:54 CBC with Diff Sent. sv 14:54 Basic Metabolic Panel Sent. sv 15:45 No provider procedures requiring assistance completed. IV discontinued, intact, vg1 bleeding controlled, No redness/swelling at site. Pressure dressing applied. Administered Medications: 13:50 Drug: NS 0.9% 1000 ml Route: IV; Rate: 1000 ml; Site: right antecubital; sr5 15:45 Follow up: IV Status: Completed infusion; IV Intake: 1000ml vg1 13:54 Drug: Zofran (Ondansetron) 4 mg Route: IVP; Site: right antecubital; sr5 15:15 Follow up: Response: No adverse reaction; Nausea is decreased vg1 13:58 Drug: TORadol - Ketorolac 15 mg Route: IVP; Site: right antecubital; sr5 15:15 Follow up: Response: No adverse reaction; Pain is decreased vg1 14:28 Drug: Magnesium Sulfate 1 grams Route: IVPB; Infused Over: 30 mins; Site: right vg1 antecubital; 15:14 Follow up: IV Status: Completed infusion; IV Intake: 100ml vg1 14:28 Drug: Flomax 0.4 mg Route: PO; vg1 15:14 Follow up: Response: No adverse reaction vg1 15:14 Drug: morphine 4 mg {Note: rass0.} Route: IVP; Site: right antecubital; vg1 15:44 Follow up: Response: No adverse reaction; Pain is decreased vg1 Point of Care Testing: Urine : 13:38 hCG Reading: Negative; Control Reading: Positive; jp3 Intake: 15:14 IV: 100ml; Total: 100ml. vg1 15:45 IV: 1000ml; Total: 1100ml. vg1 Outcome: 15:09 Discharge ordered by . tonie 15:45 Discharged to home ambulatory. vg1 15:45 Condition: stable 15:45 Discharge instructions given to patient, Instructed on discharge instructions, follow up and referral plans. medication usage, Demonstrated understanding of instructions, follow-up care, medications, Prescriptions given X 4. 15:45 Patient left the ED. vg1 Addendum: 10/21/2020 10:51 Addendum: Culture Results: Positive urine culture. Patient was not prescribed s s antibiotics at discharge. Report given to ASA for further evaluation and then to traffic operations engineer for follow up with patient. Phone call Attempt #1 Pt was to follow up with urologist who sent her to be admitted to [facility]. Spoke with patient who was happy with follow up call for urine culture. Called [facility] in [facility] and spoke with Verónica. Faxed urine culture report to [phone]. Signatures: Dispatcher [employer] EDMS Marisol Cisneros, FOOD SAFETY AUDITOR-C FOOD SAFETY AUDITOR-CkVerito Johnson, RN RN Lyndsey Beavers mr Marisel Capone, RN RN Bety Reza, RN RN Maciej Keenan, RN RN sr5 Clinton Brown Victoria, RN RN vg1
[2020-10-18] MEDS ORDERED: MORPHINE 4 MG/ML SYR ONE (15:28)
--- NOTE | 2020-10-19 12:50 | EKG ---
Test Date: 2020-10-18 Test Time: 13:08:40 Commodities Requirements Analyst: HALEY MEASUREMENT RESULTS: Intervals: Rate: 88 VA: 144 QRSD: 68 QT: 346 QTc: 418 [place]: P: 49 VA: 144 QRS: 62 T: 38 INTERPRETIVE STATEMENTS: Normal sinus rhythm Low voltage QRS Borderline ECG Compared to ECG 10/04/2016 14:38:37 Low QRS voltage now present Sinus tachycardia no longer present Electronically Signed On 10-19-20 12:45:48 CDT by Mikel Mtz
== END 2020-10-18 15:45 | disposition home or self-care (01) ==
LOC: ER 09:03
DX: N20.2 Calculus of kidney with calculus of ureter (principal); Z87.442 Personal history of urinary calculi; I10 Essential (primary) hypertension; Z91.048 Other nonmedicinal substance allergy status
CPT/HCPCS: 36415; 74176; 76377; 80048; 81003; 81015; 81025; 85025; 87077; 87086; 87088; 87186; 93005; 96361; 96365; 96375; 99284; J2405; J3475; J7030

== ENCOUNTER 2021-03-03 10:19 | Emergency (ER) | payer OTHER ==
--- OUTSIDE RECORDS SUMMARY | 2021-03-03 10:32 | XMS REPORT | Continuity of Care Document ---
:1980 Author Organization [facility] t Address [address] Rodríguez. [address] [place] [id number] Care Team Providers Name Role Phone Pcp MD Primary Care Physician Unavailable Abigail NGO, Viry Attending Clinician ANIL Attending Clinician Unavailable CORINE CRANDALL Attending Clinician Unavailable RICCO QUIÑONES Attending Clinician Unavailable Zach Pendleton MD Attending Clinician Unavailable Ellen Zimmerman MD Attending Clinician Wolfgang Norris MD Attending Clinician Pricila Portillo MD Attending Clinician Chente TELLEZ Attending Clinician Kory Soria Attending Clinician Unavailable Ellen ZIMMERMAN Attending Clinician Unavailable VÍCTOR MATHEWS Attending Clinician Unavailable JAY Attending Clinician Unavailable Jay TELLEZ Attending Clinician ZACH PENDLETON Attending Clinician Unavailable Rome Ayoub MD Attending Clinician Unavailable ROME AYOUB Attending Clinician Unavailable Rome Ayoub MD Attending Clinician Ted Cisneros DO Attending Clinician Molina TELLEZ TJasson Attending Clinician Regla Mitchell Attending Clinician Doc RAMOS Becki Attending Clinician Stephen NGO Attending Clinician Heber TELLEZ Attending Clinician Newton SAUCEDO Attending Clinician Unavailable Radha Attending Clinician Unavailable Rhona TELLEZ, Gerson Attending Clinician Amaris Brooks CRNA Attending Clinician ROME AYOUB Attending Clinician Unavailable Arthur Zhang MD Attending Clinician Nithya TELLEZ Attending Clinician Dionicio Burciaga MD, Chato Attending Clinician [phone] ARTHUR ZHANG Attending Clinician Unavailable Tonia Navarro MD Attending Clinician Garcia Sawant MD Attending Clinician Kenny Cain MD Attending Clinician TONIA NAVARRO Attending Clinician Unavailable Leonor TELLEZ Attending Clinician Jef Casarez MD Attending Clinician Janna Gonzales MD Attending Clinician LEONOR Attending Clinician Unavailable Nikkie Schulz CRNA Attending Clinician [phone] Daniel Anderson MD Attending Clinician DANIEL ANDERSON Attending Clinician Unavailable Yonatan Iraheta MD Attending Clinician Pedro Artis CRNA Attending Clinician Breezy TELLEZ Attending Clinician Julia Fonseca MD Attending Clinician Emmanuelle TELLEZ Attending Clinician Keshia Mari MD Attending Clinician Henok Parra MD Attending Clinician Kushal Del Castillo MD Attending Clinician Cheryle Escamilla MD Attending Clinician Mela TELLEZ Attending Clinician Merchant TELLEZ Attending Clinician KUSHAL DEL CASTILLO Attending Clinician Unavailable Tushar TELLEZ, Chu Attending Clinician Margareth KWONG Attending Clinician Unavailable DR NEMO Attending Clinician Unavailable Scotty TELLEZ Attending Clinician WOLFGANG NORRIS Admitting Clinician Unavailable ROME AYOUB Admitting Clinician Unavailable NITHYA Admitting Clinician Unavailable GARCIA SAWANT Admitting Clinician Unavailable JANNA GONZALES Admitting Clinician Unavailable MELA Admitting Clinician Unavailable DR NEMO Admitting Clinician Unavailable Payers Payer Name Policy Type Policy Number Effective Date Expiration Source Date [facility] [id number] [id number] - 07/2020- [facility] [id number] [place] [id number] [facility] [id number] 2020-11-11 PROGRAM - MEDICAID 00:00:00 Problems Condition Condition Condition Status Onset Resolution Last Treating Co mments Source Name Details Category Date Date Treatment Clinician Date Left flank Left flank Disease Active [facility] pain pain 7-14 [facility] - 00:[facility]: Medical 00 [place] Pyelonephr Pyelonephr Disease Active [facility] itis itis 7-14 [facility] - 00:00: Medical 00 [place] Nephrolith Nephrolith Disease Active [facility] iasis iasis 5-28 [facility] - 00:00: Medical 00 [place] Abnormal Abnormal Disease Active [facility] liver [facility] 525 [facility] - 00:00: Medical 00 [place] Cirrhosis Cirrhosis Disease Active Last [facility] - 00:00: t & Plan: Medical 00 Question Center of cirrhosis on recent CT imaging. Cirrhosis is likely compensat ed and may be attribute d to sarcoidos is. Her splenomeg ally may be attribute d to extrapulm onary involveme nt of her liver disease. Her MELD-Na is 9 under the threshold for liver transplan t evaluatio n. We will get an MRI, updated MELD labs and comprehen sive liver workup to rule out other causes of liver disease. Immunity Immunity Disease Active [facility] status status 5-25 [facility] - testing testing 00:00: t & Plan: Medic al 00 We will Center check for immunity to hepatitis A and hepatitis B virus infection . If serologie s are negative, will recommend vaccinati on series. Class 1 Class 1 Disease Active Last [facility] drug-induc drug-induc 5-25 [facility] - ed obesity ed obesity 00:00: t & Plan: Medical in adult in adult [address] likely complicat ion of being on long-term steroid use. Counseled on weight loss and that her current weight can predispos e her to fatty liver disease. Left Left Disease Active [facility] ureteral ureteral 5-18 [facility] - stone stone 00:00: Medical 00 Center Status Status Disease Active [facility] post post 5-01 [facility] - peripheral peripheral 00:00: Il dical ly ly 00 Center inserted inserted central central catheter catheter (PICC) (PICC) central central line line placement placement Retained Retained Disease Active 2019-07 [facility] ureteral ureteral 2-09 [facility] - stent stent 00:00: Medical 00 Center Bilateral Bilateral Disease Active 2019-[address] [facility] renal renal 0-26 [facility] - stones stones 00:00: Medical 00 [place] Flank pain Flank pain Disease Active 2019-[address] 0-26 [facility] - 00:00: Medical 00 [place] Fever, Fever, Disease Active [facility] unspecifie unspecifie 8 [facility] - d fever d fever 00:00: Medical cause cause 00 Center UTI UTI Disease Active [facility] (urinary (urinary 8- [facility] - tract tract 00:00: Medical infection) infection) 00 Ce nter Obstructiv Obstructiv Disease Active [facility] e uropathy e uropathy 8 [facility] k[facility] - 00:00: Medical 00 [place] Sepsis Sepsis Disease Active [facility] secondary secondary 8 [facility] - to UTI to UTI 00:00: Medical 00 Center MARIA GUADALUPE (acute MARIA GUADALUPE (acute Disease Active [facility] kidney kidney 02-20 [facility] - injury) injury) 00:00: Medical 00 [place] Sarcoidosi Sarcoidosi Disease Active Last [facility] s s 02-20 Assessmen [facility] - 00:00: t & Plan: Medical 00 History Center of zan is diagnosed in 2016. Currently on prednison e 5mg daily. Has gained 30 lbs since starting steroids, predispos ing her to metabolic syndrome and fatty liver disease. Ureteral Ureteral Disease Active [facility] stone with stone with 02-20 [facility] k[facility] - hydronephr hydronephr 00:00: Me dical osis osis 00 [place] Stones in Stones in Disease Active Overview: [facility] the the 02-20 Added [facility] - urinary urinary 00:00: automatic Medic al tract tract 00 ally from Center request for surgery [id number] Allergies, Adverse Reactions, Alerts Allergy Allergy Status Severity Reaction(s) Onset Inactive Treating Comm ents Source Name Type Date Date Clinician Iodine Drug Active Hives, 2019-07 Rash, [facility] And Allergy Swelling 2-10 Throat [facility] - Iodide 00:00: swelling Medical Containi 00 Center ng Products Penicill Propensi Active Augmentin [facility] ins ty to 02-28 --"swelli [facility] - adverse 00:00: ng of Medical reaction 00 arms, [place] s feet and lips" Shellfis Drug Active Hives, Rash [facility] h Allergy 4- [facility] - Containi 00:00: Medical ng 00 Center Products Family History Family Member Diagnosis Comments Start Date Stop Date Source Natural mother Diabetes [facility] Natural mother Heart disease [facility] Natural mother Hypertension [facility] Natural mother Ovarian cancer [facility] Social History Social Habit Start Date Stop Date Quantity Comments Source History SDOH [facility] - Alcohol Std Drinks Medica l Center History SDOH [facility] - Alcohol Binge Medical Emir ter Sex Assigned At [facility] Tobacco use and 2021-01-25 2021-01-25 Never used [facility] - exposure 00:00:00 00:00:00 [facility] Alcohol intake 2021-01-25 2021-01-25 Current [facility] 00:00:00 00:00:00 non-drinker of Medical Ce nter alcohol (finding) Tobacco Comment 2020-11-18 2020-11-18 quit x [address] [facility] - 00:00:00 00:00:00 Medical Center History SDOH 2020-03-11 2020-03-[address] [facility] - Alcohol Frequency 00:00:00 00:00:00 Medical Center Smoking Status Start Date Stop Date Source Former smoker 2021-01-25 00:00:00 2021-01-25 00:00:[address] [facility] Center Medications Ordered Filled Start Stop Current Ordering Indication Dosage Frequency Signature Comments Components Source Medication Medication Date Date Medication? Clinician (SIG) Name Name acetaminoph Yes pain 1000mg Take 1,[address] [facility] en 7-23 mg by [facility]ukes - (TYLENOL) 10:18: mouth Medical 500 MG 22 every 6 Center tablet (six) hours as needed for Pain. ferrous Yes iron 325mg Take 325 [facility] sulfate 325 - deficiency mg by L ukes - (65 FE) MG 10:18: anemia mouth Medi fabiola tablet 22 daily with Center breakfast. etonogestre Yes by [facility] L - Subdermal [facility] - (Nexplanon) 10:18: route. Medi fabiola 68 mg Impl 22 Center predniSONE 2020- No 10mg QD Take [address] [facility] (DELTASONE) 02-03 by mouth Elise es - 10 MG 08:45: 00:00 daily. Medical tablet 38 :00 Center predniSONE Yes [address] [facility] [address] [facility] (DELTASONE) 02-03 daily for Elise es - 10 MG 00:00: 3 days, Medical tablet 00 then 3 Center tabs po daily for 3 days, then 2 tabs po daily for 3 days, then 1 tab po daily. Total 60 tablets of 10 mg.. timolol 2021- Yes 1[drp] Q.5D Place [address] [address] (TIMOPTIC) 02-03 drop into Elise es - 0.5 % 00:00: 23:59 the left Medical ophthalmic 00 :00 eye 2 Center solution (two) times daily. dorzolamide 2020- Yes 1[drp] Q.5D Place [address] [facility] (TRUSOPT) 2 02-03 drop into Daya kes - % 00:00: 23:59 the left Medical ophthalmic 00 :00 eye 2 Center solution (two) times daily for 50 days. famotidine 2020- Yes 20mg Take [address] [facility] (PEPCID) 20 02-03 tablet (20 L ukes - MG tablet 00:00: 23:59 mg total) Me dical 00 :00 by mouth Center daily as needed (heartburn ) for up to 30 days. lidocaine 2020- Yes 1{patch Q24H Place [address] (LIDODERM) 02-03 } patch onto Daya kes - 5 % patch 00:00: 23:59 the skin Med ical 00 :00 daily for Center 30 days Remove & Discard patch within 12 hours or as directed by . HYDROcodone 2020- No 1{tbl} Take [address] -acetaminop 02-03 tablet by Daya Solis hen (NORCO 00:00: 23:59 mouth Medic al 10-325) 00 :00 every 12 Center 10-325 mg (twelve) per tablet hours as needed for Pain for up to 10 days. Max Daily Amount: 2 tablets cefdinir 2020- No 300mg Q.5D Take 1 [facility] (OMNICEF) 02-03 capsule [facility] - 300 MG 00:00: 23:59 (300 mg Medical capsule 00 :00 total) by Center mouth 2 (two) times daily for 10 doses. multivitami 2020- No 1{tbl} QD Take [address] n per 01-25-14 tablet by [facility] - tablet 23:06: 00:00 mouth Medical 52 :00 daily. [place] oxybutynin 2020- No 5mg Q.[id number] Take [address] (DITROPAN) 12-0927 [id number] tablet (5 [facility] - 5 MG tablet 00:00: 23:59 3D mg total) Medical 00 :00 by mouth 3 Center (three) times daily for 30 days. tamsulosin 2020- No .4mg QD Take [address] (FLOMAX) 5-28 06-10 capsule [facility] - 0.4 mg Cap 00:00: 00:00 (0.4 mg Med ical 24 hr 00 :00 total) by Center capsule mouth daily for 30 days. traMADoL 2020- No 50mg Take [address] [facility] [facility] (ULTRAM) 50 12-09- tablet (50 L ukes - mg tablet 00:00: 23:59 mg total) Me dical 00 :00 by mouth Center every 6 (six) hours as needed for Pain for up to 5 days. Max Daily Amount: 200 mg phenazopyri 2020- No 100mg Take [address] dine 12-09 tablet [facility] - (PYRIDIUM) 00:00: 23:59 (100 mg Med ical 100 MG 00 :00 total) by Center tablet mouth 3 (three) times daily as needed for Pain for up to 3 days. traMADoL No 50mg Take [address] (ULTRAM) 50 12-09 tablet (50 L ukes - mg tablet 00:00: 00:00 mg total) Me dical 00 :00 by mouth Center every 6 (six) hours as needed for Pain for up to 5 days. Max Daily Amount: 200 mg phenazopyri 2020- No 100mg Take [address] dine 12-09 tablet [facility] - (PYRIDIUM) 00:00: 00:00 (100 mg Med ical 100 MG 00 :00 total) by Center tablet mouth 3 (three) times daily as needed for Pain for up to 3 days. tamsulosin 2020- No .4mg QD Take [address] (FLOMAX) 12-09 capsule [facility] - 0.4 mg Cap 00:00: 00:00 (0.4 mg Med ical 24 hr 00 :00 total) by Center capsule mouth daily for 30 days. oxybutynin 2020- No 5mg Q.[id number] Take [address] (DITROPAN) 12-09 [id number] tablet (5 [facility] - 5 MG tablet 00:00: 00:00 3D mg total) Medical 00 :00 by mouth 3 Center (three) times daily for 30 days. meropenem No 1g Q.[id number] Inject [address] (MERREM) 1 5-15 05-15 [id number] intravenou [facility] - g in NS 100 15:59: 00:00 3D sly 3 Medi fabiola mL (V2B) 59 :00 (three) Center IVPB times daily. tamsulosin 2020- No .4mg QD Take [address] (FLOMAX) 11-26-14 capsule [facility] - 0.4 mg Cap 00:00: 23:59 (0.4 mg Med ical 24 hr 00 :00 total) by Center capsule mouth daily for 30 days. oxybutynin 2020- No 15mg QD Take [address] [address] (DITROPAN 11-26-10 tablet (15 Elise es - XL) 15 MG 00:00: 00:00 mg total) Me dical 24 hr 00 :00 by mouth Center tablet nightly for 60 days. meropenem 2020- No 1g Q.[id number] Inject [address] [address] (MERREM) 1 11-26-29 [id number] intravenou [facility] - g in NS 100 00:00: 23:59 3D sly 3 Medi fabiola mL (V2B) 00 :00 (three) Center IVPB times daily for 14 days. traMADoL 2020- No 50mg Take [address] [facility] (ULTRAM) 50 11-26 05-20 tablet (50 L ukes - mg tablet 00:00: 23:59 mg total) Me dical 00 :00 by mouth Center every 6 (six) hours as needed for Pain for up to 5 days. Max Daily Amount: 200 mg phenazopyri 2020- No 200mg Take [address] dine 11-26 05-18 tablet [facility] - (PYRIDIUM) 00:00: 23:59 (200 mg Med ical 200 MG 00 :00 total) by Center tablet mouth 3 (three) times daily as needed for Pain for up to 3 days. ertapenem 2020-2020- No 1g Q24H Inject [address] (INVanz) 11-05 05-02 intravenou Luke s - MBP 1 g in 00:00: 00:00 sly daily M edical 100 mL NS 00 :00 for 26 Center days. lactobacill 2020- No 1{capsu QD Take [address] [facility] [address] us 11-04 04-23 le} capsule by [facility] - rhamnosus, 14:38: 00:00 mouth Medic al GG, 37 :00 daily. [place] (CULTUREE ) 10 billion cell capsule lactobacill Yes 1{capsu Q.5D Take [address] us -23 le} capsule by [facility] - rhamnosus, 00:00: mouth 2 Medi fabiola GG, 00 (two) Center ([facility] times ) 10 daily. billion cell capsule meropenem 2020- No 1g Inject [facility] (MERREM) 10-28 1,000 mg [facility] - injection 1 00:00: 00:00 (1 g Medic al g 00 :00 total) Center intravenou sly every 8 (eight) hours. traMADoL 2020- No 50mg Take [address] [facility] (ULTRAM) 50 10-25 tablet (50 L ukes - mg tablet 00:00: 23:59 mg total) Me dical 00 :00 by mouth Center every 6 (six) hours as needed for up to 10 days. Max Daily Amount: 200 mg ertapenem No 1g Q24H Inject [address] (INVanz) 10-24-16 intravenou Luke s - IVPB 00:00: 00:00 sly daily. Medica l 00 :00 [place] sulfamethox 2019-07- No 160mg{t Q.5D Take 1 [...] times daily for 7 days. sulfamethox 2019-07 No 1{tbl} Q.5D Take [address] azole-trime 2- 04-12 tablet by Daya christian - thoprim 00:00: 00:00 mouth 2 Medica l (BACTRIM 00 :00 (two) Center DS) 800-160 times mg per daily. tablet oxybutynin 2019-07 No 15mg QD Take [address] [facility] (DITROPAN 07-18 05-15 tablet (15 Elise es - XL) 15 MG 00:00: 00:00 mg total) Me dical 24 hr 00 :00 by mouth Center tablet nightly. traMADoL 2019-07 No 100mg Take [address] [facility] 100 mg Tab 07-18 11-14 mg by Dayakes - 00:00: 23:59 mouth Medical 00 :00 every 6 Center (six) hours as needed for up to 10 days. Max Daily Amount: 400 mg sulfamethox 2019-07 No 160mg{t Q.5D Take [address] azole-trime 07-1809 rimetho tablet Daya christian - thoprim 00:00: 23:59 prim} (160 mg of Me dical (BACTRIM 00 :00 trimethopr Cente r DS) 800-160 im total) mg per by mouth 2 tablet (two) times daily for 5 days. fluconazole No 200mg QD Take [address] (DIFLUCAN) 03-23 tablet Alanis - 200 MG 00:00: 23:59 (200 mg Medical tablet 00 :00 total) by Center mouth daily for 7 days. HYDROcodone 2019- No pain 1{tbl} Take [address] -acetaminop 03-22 tablet by Daya rubin (NORCO 00:00: 23:59 mouth Medic al 5-325) 00 :00 every 6 Center 5-325 mg (six) per tablet hours as needed for Pain for up to 10 days. Max Daily Amount: 4 tablets ciprofloxac 2019- No 500mg Take [address] in HCl 03-22 tablet Alanis - (CIPRO) 500 00:00: 23:59 (500 mg Me dical MG tablet 00 :00 total) by Cente r mouth every 12 (twelve) hours for 7 days. HYDROcodone 2019-2019- No 1{tbl} Take [address] -acetaminop 03-22 tablet by Daya rubin (NORCO 00:00: 00:00 mouth Medic al 5-325) 00 :00 every 6 Center 5-325 mg (six) per tablet hours as needed for up to 10 days. Max Daily Amount: 4 tablets metroNIDAZO 2019- No 500mg Q.[id number] Take [address] LE (FLAGYL) 02-28 [id number] mg by [facility] - 500 MG 00:00: 00:00 3D mouth 3 Medical tablet 00 :00 (three) Center times daily FOR 10 DAYS. tamsulosin No .4mg QD Take [address] [facility] (FLOMAX) 8 05-15 capsule [facility] - 0.4 mg Cap 00:00: 00:00 (0.4 mg Med ical 24 hr 00 :00 total) by Center capsule mouth daily. predniSONE No 10mg QD Take [address] [facility] [address] (DELTASONE) 814 11-12 tablet (10 L ukes - 10 MG 00:00: 23:59 mg total) Medica l tablet 00 :00 by mouth Center daily for 90 days. pantoprazol 2019- No 40mg Q.5D Take [address] [facility] e 8-13 09-12 tablet (40 [facility] - (PROTONIX) 00:00: 23:59 mg total) M edical 40 MG 00 :00 by mouth 2 Center tablet (two) times daily for 30 days. Immunizations Ordered Immunization Filled Immunization Date Status Commen ts Source Name Name Pneumococcal 2020-06-[address] [facility] - Conjugate (Prevnar) 00:00:00 Medic al Center 13-Valent Influenza Four-QIV 2020-06-[address] [facility] - PF 3YR+ 00:00:00 Medical Center Vital Signs Vital Name Observation Time Observation Value Comments Source Systolic blood 2021-02-03 07:18:00 124 mm[Hg] [facility] Diastolic blood 2021-02-03 07:18:00 84 mm[Hg] [facility] Heart rate 2021-02-03 07:18:00 71 /min [facility] Body temperature 2021-02-03 07:18:00 36.39 Bella [facility] Respiratory rate 2021-02-03 07:18:00 16 /min [facility] Oxygen saturation in 2021-02-03 07:18:00 100 /min [facility] - Arterial blood by Medical Ce nter Pulse oximetry Body height 2021-01-26 22:37:00 163.8 cm [facility] Body weight 2021-01-26 22:37:00 85.276 kg [facility] BMI 2021-01-26 22:37:00 31.78 kg/m2 [facility] Procedures Procedure Date / Time Performing Clinician Source Performed CT CHEST WITHOUT IV 2021-02-09 08:56:00 Arthur Pendleton I [facility] BASIC METABOLIC PANEL (7) 2021-02-03 07:28:00 Portillo, [facility] CALCIUM, IONIZED 2021-02-03 07:28:00 Portillo, [facility] CBC (HEMOGRAM ONLY) 2021-02-03 07:28:00 Portillo, [facility] ALBUMIN 2021-02-03 07:28:00 Twin Alvares [facility] BASIC METABOLIC PANEL (7) 2021-02-02 05:31:00 Portillo, [facility] CALCIUM, IONIZED 2021-02-02 05:31:00 Portillo, [facility] ALBUMIN 2021-02-02 05:31:00 Twin Alvares [facility] ANGIOTENSIN CONVERTING 2021-02-02 05:31:00 Caty Michael [facility] Jessica Thapa - ENZYME (MARYCARMEN) [facility] T SPOT TB 2021-02-02 05:31:00 Rene Felder [facility] SARS-COV2/RT-PCR ([facility] & 2021-02-02 05:08:00 Jacques-Madsen, Kyung pe [facility] - REF LABS) R [facility] XR CHEST 1 VIEW PORTABLE / 2021-02-01 12:50:[address] [facility] BASIC METABOLIC PANEL (7) 2021-02-01 05:40:00 Portillo, [facility] CALCIUM, IONIZED 2021-02-01 05:40:00 Portillo, [facility] CBC (HEMOGRAM ONLY) 2021-02-01 05:40:00 Portillo, [facility] C. DIFFICILE GDH TOXIN 2021-01-31 11:48:00 Portillo, [facility] BASIC METABOLIC PANEL (7) 2021-01-31 05:19:00 Portillo, [facility] CALCIUM, IONIZED 2021-01-31 05:19:00 Portillo, [facility] IRON, TIBC, % SAT. 2021-01-30 15:23:00 [facility] 2021-01-30 15:23:00 [facility] CBC (HEMOGRAM ONLY) 2021-01-30 05:25:[address] [facility] BASIC METABOLIC PANEL (7) 2021-01-30 05:25:00 Portillo, [facility] CALCIUM, IONIZED 2021-01-30 05:25:00 Portillo, [facility] PTH, INTACT 2021-01-29 23:23:00 Murguia [facility] PTH-RELATED PEPTIDE 2021-01-29 23:23:00 [facility] CBC (HEMOGRAM ONLY) 2021-01-29 04:39:[address] [facility] BASIC METABOLIC PANEL (7) 2021-01-29 04:39:00 PortilloLuz Maria [facility] CALCIUM, IONIZED 2021-01-29 04:39:00 Portillo, Luz Maria Mcnulty [facility] VITAMIN D, 25-HYDROXY 2021-01-28 11:51:00 Edna Headley [facility] IMMUNOFIXATION 2021-01-28 11:51:00 Edna Headley [facility] es - ELECTROPHORESIS (OMEGA) [facility] nter PROTEIN ELECTROPHORESIS, 2021-01-28 11:51:00 Edna Headley [facility] SERUM [facility] CBC (HEMOGRAM ONLY) 2021-01-28 03:17:00 [facility] BASIC METABOLIC PANEL (7) 2021-01-28 03:17:00 [facility] CALCIUM, IONIZED 2021-01-28 03:17:00 PortilloLuz Maria [facility] CALCITRIOL 2021-01-28 03:17:00 Alvin Ayala [facility] BASIC METABOLIC PANEL (7) 2021-01-27 06:32:00 [facility] PHOSPHORUS 2021-01-27 06:32:00 [facility] MAGNESIUM 2021-01-27 06:32:00 [facility] CBC (HEMOGRAM ONLY) 2021-01-27 05:29:00 [facility] CALCIUM, IONIZED 2021-01-27 05:29:00 Portillo, Luz Maria Pricila [facility] BASIC METABOLIC PANEL (7) 2021-01-26 05:25:00 [facility] PHOSPHORUS 2021-01-26 05:25:00 [facility] MAGNESIUM 2021-01-26 05:25:00 [facility] ALBUMIN 2021-01-26 05:25:00 [facility] CBC (HEMOGRAM ONLY) 2021-01-26 04:32:00 [facility] PROTHROMBIN TIME/INR 2021-01-26 04:32:00 [facility] CALCIUM, IONIZED 2021-01-26 04:32:00 [facility] SARS-COV2/RT-PCR ([facility] & 2021-01-25 23:41:00 Jacques-MadsenSteffanie clementi pe [facility] - REF LABS) [facility] CT ABDOMEN/PELVIS WITHOUT 2021-01-25 20:28:00 Jacques-Cale Fel ipe [facility] St kes - IV CONTRAST [facility] CBC W/PLT COUNT & AUTO 2021-01-25 16:36:00 Jacques-Madsen, Jayjay [facility] - DIFFERENTIAL [facility] HCG, QUANTITATIVE, 2021-01-25 16:36:00 Jacques-Jayjay Madsen [facility] - [facility] URINE CULTURE 2021-01-25 15:46:00 Jacques-Madsen, Jayjay [facility] - [facility] COMPREHENSIVE METABOLIC 2021-01-25 15:46:00 Jacques-Steffanie Madsenip e [facility] - PANEL [facility] URINALYSIS W/ REFLEX URINE 2021-01-25 15:46:00 Jacques-Cale Fe heraclio [facility] - CULTURE [facility] CT ABDOMEN/PELVIS WITHOUT 2021-01-11 09:15:00 Denise Ayoub [facility] IV CONTRAST [facility] MR ABDOMEN WITH & WITHOUT 2020-12-30 18:18:00 Cholankeril, Fidencio e [facility] CONTRAST [facility] [place] FLUORO NON-SPECIFIC UP 2020-12-09 13:25:00 Denise Ayoub Sun beatris [facility] - TO [facility] STONE ANALYSIS 2020-12-09 13:13:01 [facility] 2020-12-09 13:11:38 Mega Denise [facility] CYSTOSCOPY,URETEROSCOPY W/ 2020-12-09 09:41:00 Mega Denise Medina ying [facility] - LITHOTRIPSY AND URETERAL [facility] STENT CYSTOSCOPY,RETROGRADES 2020-12-09 09:41:00 Mega Denise [facility] POCT , URINE 2020-12-09 08:05:00 Grey Buck [facility] PROTHROMBIN TIME/INR 2020-12-06 14:32:00 Cholankeril, [facility] [id number], 2020-12-06 14:32:00 Cholankeril, [facility] - SERUM [facility] ACTIN (SMOOTH MUSCLE) 2020-12-06 14:32:00 Cholankeril, [facility] - ANTIBODY, IGG [facility] MITOCHONDRIA M2 ANTIBODY 2020-12-06 14:32:00 Cholankeril, [facility] (IGG) [facility] HEPATITIS A ANTIBODY, IGG 2020-12-06 14:31:00 Cholankeril, [facility] COMPREHENSIVE METABOLIC 2020-12-06 14:31:00 Cholankeril, [facility] PANEL [facility] BILIRUBIN, DIRECT 2020-12-06 14:31:00 Cholankeril, [facility] CBC W/PLT COUNT & AUTO 2020-12-06 14:31:00 Cholankeril, [facility] DIFFERENTIAL [facility] HEPATITIS A ANTIBODY, IGM 2020-12-06 14:31:00 Cholankeril, [facility] HEPATITIS B SURFACE 2020-12-06 14:31:00 Cholankeril, [facility] - ANTIGEN [facility] HEPATITIS B SURFACE 2020-12-06 14:31:00 Cholankeril, [facility] - ANTIBODY [facility] HEPATITIS B CORE ANTIBODY, 2020-12-06 14:31:00 Cholankeril, [facility] - TOTAL [facility] HEPATITIS C ANTIBODY 2020-12-06 14:31:00 Cholankeril, [facility] - [facility] IRON, TIBC, % SAT. 2020-12-06 14:31:00 Cholankeril, [facility] - [facility] 2020-12-06 14:31:00 Cholankeril, [facility] CERULOPLASMIN 2020-12-06 14:31:00 Cholankeril, [facility] ANTI-NUCLEAR ANTIBODY 2020-12-06 14:31:00 Cholankeril, [facility] - (ROVERTO) [facility] ALPHA FETOPROTEIN (AFP), 2020-12-06 14:31:00 Cholankeril, [facility] - TUMOR MARKER [facility] CBC W/PLT COUNT & AUTO 2020-11-26 15:43:00 Augustina [facility] DIFFERENTIAL [facility] CBC W/PLT COUNT & AUTO 2020-11-26 11:29:00 [facility] DIFFERENTIAL [facility] BASIC METABOLIC PANEL (7) 2020-11-26 03:28:00 Hector Vo [facility] HEMOGLOBIN AND HEMATOCRIT 2020-11-26 03:28:00 Hector Vo [facility] [place] FLUORO NON-SPECIFIC UP 2020-11-25 16:23:00 Denise Ayoub [facility] - TO 1 HOUR [facility] STONE ANALYSIS 2020-11-25 15:28:53 Denise Ayoub [facility] CYSTOSCOPY,URETEROSCOPY W/ 2020-11-25 12:46:00 Denise Ayoub [facility] - LITHOTRIPSY AND URETERAL [facility] STENT CYSTOSCOPY,RETROGRADES 2020-11-25 12:46:00 Jody Ayoubm [facility] PROCEDURE W/ C-ARM 2020-11-25 12:46:00 Mega Denise Rome [facility] POCT , URINE 2020-11-25 09:30:00 Cherelle Melgoza [facility] IR TUNNELED CATHETER 2020-11-14 15:36:00 Chadwick Barriga [facility] PROTHROMBIN TIME/INR 2020-11-14 11:45:00 Devon Roseline Burciaga [facility] APTT 2020-11-14 11:45:00 [facility] Gualberto [facility] CBC W/PLT COUNT & AUTO 2020-11-14 11:45:00 [facility] BASIC METABOLIC PANEL (7) 2020-11-14 11:45:00 Tania Hogue [facility] SARS-COV2/RT-PCR ([facility] & 2020-11-13 01:14:00 Steven Zhang [facility] - REF LABS) [facility] LACTIC ACID, VENOUS 2020-11-12 21:29:00 Hector Meza [facility] CT ABDOMEN/PELVIS WITHOUT 2020-11-12 19:40:00 Hector Meza CH, I [facility] - IV CONTRAST [facility] ECG 12-LEAD 2020-11-12 19:22:32 Derrick [facility] BASIC METABOLIC PANEL (7) 2020-11-12 15:53:00 Hector Meza CH I [facility] CBC W/PLT COUNT & AUTO 2020-11-12 15:53:00 Hector Meza [facility] - DIFFERENTIAL [facility] URINE CULTURE 2020-11-12 15:51:00 Derrick [facility] URINALYSIS W/ REFLEX URINE 2020-11-12 15:51:00 Hector Meza [facility] - CULTURE [facility] SCREEN, URINE 2020-11-12 15:51:00 Steven Zhang CH, I [facility] REPORT OF PROCEDURE - 2020-11-12 00:00:00 Josesito Barber [facility] - ENDOSCOPY SCAN Scanning [facility] BASIC METABOLIC PANEL (7) 2020-11-02 04:19:00 Carlene Sawant [facility] CBC W/PLT COUNT & AUTO 2020-11-02 04:19:00 Carlene Sawant [facility] SARS-COV2/RT-PCR ([facility] & 2020-11-01 14:56:00 Jaquelin Navarro [facility] - REF LABS) [facility] COMPREHENSIVE METABOLIC 2020-11-01 14:49:[address] [facility] PANEL [facility] LIPASE 2020-11-01 14:49:00 [facility] & PELVIS - 2020-11-01 13:35:00 [facility] STONE EVALUATION [facility] enter WITHOUT IV CONTRAST URINE CULTURE 2020-11-01 12:30:00 Chris [facility] URINE CULTURE 2020-11-01 12:25:00 [facility] URINALYSIS W/ REFLEX URINE 2020-11-01 12:25:00 Jaquelin Navarro [facility] SCREEN, URINE 2020-11-01 12:25:00 [facility] BLOOD CULTURE 2020-11-01 12:18:00 Chris [facility] CBC W/PLT COUNT & AUTO 2020-11-01 12:18:00 Jaquelin Navarro [facility] - DIFFERENTIAL [facility] LACTIC ACID, VENOUS 2020-11-01 12:18:00 Kal Navarroa [facility] BLOOD GAS, VENOUS 2020-11-01 12:18:00 Chris Jaquelin [facility] BASIC METABOLIC PANEL (7) 2020-10-23 03:45:00 HermelindoRomero quintero [facility] BASIC METABOLIC PANEL (7) 2020-10-22 03:54:00 HermelindoRomero [facility] VANCOMYCIN LEVEL, TROUGH 2020-10-22 03:54:00 Jad-Queenie Marvin [facility] VANCOMYCIN LEVEL, TROUGH 2020-10-21 08:15:00 Romero Casarez [facility] BASIC METABOLIC PANEL (7) 2020-10-21 03:46:[address] [facility] HEPATIC FUNCTION PANEL 2020-10-21 03:46:00 Sherry Gonzales [facility] MAGNESIUM 2020-10-21 03:46:00 Sherry Gonzales [facility] CBC W/PLT COUNT & AUTO 2020-10-21 03:46:00 Sherry Gonzales [facility] [place] FLUORO NON-SPECIFIC UP 2020-10-20 14:17:[address] [facility] TO 1 [facility] AFB CULTURE + SMEAR 2020-10-20 13:41:45 Denise Ayoub CH I [facility] (NON-SPUTUM) [facility] ANAEROBIC CULTURE 2020-10-20 13:41:45 Denise Ayoub [facility] FUNGUS CULTURE + SMEAR 2020-10-20 13:41:45 Denise Ayoub [facility] URINE CULTURE 2020-10-20 13:41:00 Denise Ayoub [facility] SPIN/CONCENTRATION CHARGE 2020-10-20 13:41:00 eDnise Ayoub [facility] CYSTOSCOPY,RETROGRADES 2020-10-20 12:44:00 Denise Ayoub [facility] CYSTOSCOPY,INSERTION 2020-10-20 12:44:00 Denise Ayoub [facility] URETERAL STENTS [facility] BASIC METABOLIC PANEL (7) 2020-10-20 10:24:00 Romero Casarez [facility] LACTIC ACID, VENOUS 2020-10-20 03:46:00 Leonor [facility] SARS-COV2/INFLUENZA/RSV 2020-10-20 00:53:00 Leonor [facility] RT-PCR [facility] BLOOD CULTURE 2020-10-20 00:51:[address] [facility] [address] ABDOMEN/PELVIS WITHOUT 2020-10-20 00:48:00 Steven Galvez [facility] IV CONTRAST [facility] LACTIC ACID, VENOUS 2020-10-20 00:39:00 Leonor [facility] BLOOD CULTURE 2020-10-20 00:38:00 Leonor [facility] REPORT OF PROCEDURE - 2020-10-20 00:00:00 Provider, Josesito [facility] ENDOSCOPY SCAN Scanning [facility] XR CHEST 2 VIEWS 2020-10-19 22:48:00 [facility]or [facility] URINE CULTURE 2020-10-19 22:34:00 Leonor [facility] CBC W/PLT COUNT & AUTO 2020-10-19 22:34:00 Leonor [facility] DIFFERENTIAL [facility] COMPREHENSIVE METABOLIC 2020-10-19 22:34:00 Leonor [facility] PANEL [facility] LIPASE 2020-10-19 22:34:00 Leonor [facility] HCG, QUANTITATIVE, 2020-10-19 22:34:00 Leonor [facility] PT/APTT 2020-10-19 22:34:00 Leonor [facility] TROPONIN I 2020-10-19 22:34:00 Leonor [facility] URINALYSIS W/ REFLEX URINE 2020-10-19 22:34:00 Leonor [facility] GAMMA GLUTAMYL TRANSFERASE 2020-10-19 22:34:00 Romero Casarez Ezekiel srinivasan [facility] (GGT) [facility] ECG 12-LEAD 2020-10-19 22:26:14 Unknown, Hl7 [facility] ED ECG INTERPRETATION 2020-10-19 22:24:11 Leonor [facility] CBC W/PLT COUNT & AUTO 2020-06-24 06:37:[address] [facility] BASIC METABOLIC PANEL (7) 2020-06-24 06:37:00 Julianne Davis CH [facility] [place] FLUORO NON-SPECIFIC UP 2020-06-23 21:57:[address] [facility] TO 1 [facility] CYSTOSCOPY,URETEROSCOPY W/ 2020-06-23 18:37:[address] [facility] LITHOTRIPSY AND URETERAL [facility] STENT PROCEDURE W/ C-ARM 2020-06-23 18:37:00 Denise Ayoub [facility] CYSTOSCOPY,REMOVAL 2020-06-23 18:37:[address] [facility] URETERAL STENTS [facility] CYSTOSCOPY,INSERTION 2020-06-23 18:37:00 Denise Ayoub [facility] URETERAL STENTS [facility] BASIC METABOLIC PANEL (7) 2020-06-23 14:00:00 Julianne Davis CH [facility] CBC W/PLT COUNT & AUTO 2020-06-23 05:49:[address] Wilcox [facility] BASIC METABOLIC PANEL (7) 2020-06-23 04:36:00 Víctor Wilcox [facility] MAGNESIUM 2020-06-23 04:36:00 Víctor Wilcox [facility] PHOSPHORUS 2020-06-23 04:36:00 Víctor Wilcox [facility] CT ABDOMEN/PELVIS WITHOUT 2020-06-23 00:21:[address] [facility] IV CONTRAST [facility] SARS-COV2/RT-PCR ([facility] & 2020-06-22 20:15:00 Jaden Jerome [facility] - REF LABS) [facility] URINALYSIS W/ REFLEX URINE 2020-06-22 20:11:00 Austen Anderson [facility] SCREEN, URINE 2020-06-22 20:11:00 Austen Anderson [facility] URINE CULTURE 2020-06-22 20:09:00 Víctor Wilcox [facility] BLOOD CULTURE 2020-06-22 19:58:00 Monica [facility] BLOOD CULTURE 2020-06-22 19:43:00 Monica [facility] CBC W/PLT COUNT & AUTO 2020-06-22 19:43:00 Austen Anderson [facility] - DIFFERENTIAL [facility] COMPREHENSIVE METABOLIC 2020-06-22 19:43:00 Austen Anderson [facility] - PANEL [facility] CBC W/PLT COUNT & AUTO 2020-05-18 05:52:00 Víctor Wilcox [facility] BASIC METABOLIC PANEL (7) 2020-05-18 05:52:00 Víctor Wilcox CH, I [facility] [place] FLUORO NON-SPECIFIC UP 2020-05-17 16:17:00 Víctor Wilcox CH, I [facility] TO 1 HOUR [facility] STONE ANALYSIS 2020-05-17 16:08:16 Denise Ayoub [facility] STONE ANALYSIS 2020-05-17 15:11:21 [facility] T[facility] 2020-05-17 14:13:00 Denise Ayoub [facility] CYSTOSCOPY,URETEROSCOPY W/ 2020-05-17 12:54:00 Denise Ayoub [facility] - LITHOTRIPSY AND URETERAL Medical Center STENT PROCEDURE W/ C-ARM 2020-05-17 12:54:00 Denise Ayoub [facility] SCREEN, URINE 2020-05-17 07:51:00 Tres Parra [facility] PROTHROMBIN TIME/INR 2020-05-17 07:50:00 Jeri Víctor [facility] APTT 2020-05-17 07:50:00 JeriVíctor vazquez [facility] CBC W/PLT COUNT & AUTO 2020-05-17 05:01:[address] vazquez [facility] BASIC METABOLIC PANEL (7) 2020-05-17 05:01:00 Víctor Wilcox [facility] CALCIUM, IONIZED 2020-05-17 05:01:00 [facility] PHOSPHORUS 2020-05-17 05:01:00 [facility] MAGNESIUM 2020-05-17 05:01:00 [facility] HEPATIC FUNCTION PANEL 2020-05-17 05:01:00 Jeri [facility] CALCIUM, 24 HOUR URINE 2020-05-16 19:28:00 [facility] SARS-COV2/RT-PCR ([facility] & 2020-05-16 16:02:00 [facility] CT ABDOMEN/PELVIS WITH & 2020-05-16 15:48:00 Suman [facility] WITHOUT IV CONTRAST Medical Cent er VITAMIN D, 25-HYDROXY 2020-05-16 04:42:00 Suman [facility] CBC W/PLT COUNT & AUTO 2020-05-16 04:42:[address] [facility] BASIC METABOLIC PANEL (7) 2020-05-16 04:42:00 Víctor Wilcox [facility] CALCIUM, IONIZED 2020-05-16 04:42:00 Suman [facility] PHOSPHORUS 2020-05-16 04:42:00 Suman [facility] MAGNESIUM 2020-05-16 04:42:00 Suman [facility] CBC W/PLT COUNT & AUTO 2020-05-15 05:09:00 Víctor Wilcox [facility] BASIC METABOLIC PANEL () 2020-05-15 05:09:00 Víctor Wilcox CH, I [facility] PTH, INTACT 2020-05-15 05:09:00 Suman [facility] CALCIUM, IONIZED 2020-05-15 05:09:00 Suman [facility] PHOSPHORUS 2020-05-15 05:09:00 Suman [facility] MAGNESIUM 2020-05-15 05:09:00 Suman [facility] CBC W/PLT COUNT & AUTO 2020-05-14 04:32:00 Víctor Wilcox [facility] BASIC METABOLIC PANEL () 2020-05-14 04:32:00 Víctor Wilcox CH, I [facility] CALCIUM, IONIZED 2020-05-14 04:32:00 Suman [facility] PHOSPHORUS 2020-05-14 04:32:00 Suman [facility] MAGNESIUM 2020-05-14 04:32:00 Suman [facility] CBC W/PLT COUNT & AUTO 2020-05-13 04:51:[address] [facility] BASIC METABOLIC PANEL () 2020-05-13 04:51:00 Víctor Wilcox CH [facility] CBC W/PLT COUNT & AUTO 2020-05-12 05:59:[address] [facility] BASIC METABOLIC PANEL () 2020-05-12 05:59:00 Julianne Davis [facility] BASIC METABOLIC PANEL (7) 2020-05-10 04:27:00 Jeri, Víctor RIDER I [facility] MAGNESIUM 2020-05-10 04:27:00 Jeri, Víctor [facility] PHOSPHORUS 2020-05-10 04:27:00 Jeri, [facility] CBC W/PLT COUNT & AUTO 2020-05-10 04:27:00 Jeri, [facility] BLOOD CULTURE 2020-05-09 23:15:00 Jeri, [facility] CT ABDOMEN/PELVIS WITHOUT 2020-05-09 19:59:00 Trimble, Candace [facility] CONTRAST [facility] URINE CULTURE 2020-05-09 17:50:00 Trimble, [facility] CBC W/PLT COUNT & AUTO 2020-05-09 17:50:00 Trimble, [facility] COMPREHENSIVE METABOLIC 2020-05-09 17:50:00 Trimble, [facility] URINALYSIS W/ REFLEX URINE 2020-05-09 17:50:00 Trimble, [facility] SCREEN, URINE 2020-05-09 17:50:00 Trimble, [facility] BASIC METABOLIC PANEL (7) 2020-03-22 05:48:00 Gomez Mccarty [facility] CBC W/PLT COUNT & AUTO 2020-03-22 03:53:[address] [facility] SARS-COV2/RT-PCR ([facility] & 2020-03-21 18:31:[address] [facility] REF LABS) [facility] CBC W/PLT COUNT & AUTO 2020-03-21 04:22:[address] [facility] BASIC METABOLIC PANEL (7) 2020-03-21 04:22:00 Gomez Mccarty CH [facility] [place] FLUORO NON-SPECIFIC UP 2020-03-20 14:37:[address] [facility] TO 1 HOUR [facility] STONE ANALYSIS 2020-03-20 14:04:05 Denise Ayoub [facility] CYSTOSCOPY,URETEROSCOPY 2020-03-20 09:35:00 Denise Ayoub [facility] CBC W/PLT COUNT & AUTO 2020-03-20 04:48:00 [facility] BASIC METABOLIC PANEL (7) 2020-03-20 04:48:00 [facility] HCG, QUANTITATIVE, 2020-03-19 00:58:00 [facility] SARS-COV2/RT-PCR ([facility] & 2020-03-18 22:05:00 Marvin Garcia [facility] - REF LABS) [facility] SCREEN, URINE 2020-03-17 05:32:00 Elisa Manzanares [facility] CBC W/PLT COUNT & AUTO 2020-03-17 03:36:00 [facility] BASIC METABOLIC PANEL (7) 2020-03-17 03:36:00 [facility] CBC W/PLT COUNT & AUTO 2020-03-16 04:00:00 [facility] BASIC METABOLIC PANEL (7) 2020-03-16 04:00:00 [facility] CBC W/PLT COUNT & AUTO 2020-03-15 06:00:00 [facility] BASIC METABOLIC PANEL (7) 2020-03-15 06:00:00 [facility] PT/APTT 2020-03-15 06:00:00 [facility] SARS-COV2/RT-PCR ([facility] & 2020-03-14 16:24:[address] [facility] LABS) [facility] SCREEN, URINE 2020-03-14 16:24:00 EricSally rutledge [facility] CBC W/PLT COUNT & AUTO 2020-03-13 05:19:00 Yazmin Escamilla [facility] BASIC METABOLIC PANEL (7) 2020-03-13 05:19:00 Yazmin Escamilla [facility] TRANSFUSION SERVICE REPORT 2020-03-12 18:03:[address] [facility] - SCAN Scanning [facility] BASIC METABOLIC PANEL (7) 2020-03-12 04:12:00 Yazmin Escamilla [facility] CBC W/PLT COUNT & AUTO 2020-03-12 04:08:00 Yazmin Escamilla [facility] URINE CULTURE 2020-03-11 09:58:00 Denise Ayoub [facility] URINALYSIS W/ MICROSCOPIC 2020-03-11 09:58:00 Denise Ayoub [facility] CBC W/PLT COUNT & AUTO 2020-03-11 04:57:00 Yazmin Escamilla [facility] BASIC METABOLIC PANEL (7) 2020-03-11 04:57:00 Yazmin Escamilla [facility] PROTHROMBIN TIME/INR 2020-03-11 04:57:00 Yazmin Escamilla [facility] TYPE AND SCREEN, AUTOMATED 2020-03-11 04:57:00 Yazmin Escamilla [facility] BLOOD CULTURE 2020-03-11 00:22:00 Yazmin Escamilla [facility] US RENAL COMPLETE 2020-03-10 22:15:00 Sunny Del Castillo [facility] SARS-COV2/RT-PCR ([facility] & 2020-03-10 21:43:00 Sunny Del Castillo [facility] - REF LABS) [facility] LACTIC ACID, VENOUS 2020-03-10 18:51:00 Sunny Del Castillo [facility] XR ABDOMEN / KUB 1 VIEW 2020-03-10 18:32:00 Sunny Del Castillo [facility] XR CHEST 1 VIEW PORTABLE / 2020-03-10 18:32:[address] [facility] URINE CULTURE 2020-03-10 17:25:00 Sunny Del Castillo [facility] CBC W/PLT COUNT & AUTO 2020-03-10 17:25:00 Sunny Del Castillo CH I [facility] DIFFERENTIAL [facility] BASIC METABOLIC PANEL (7) 2020-03-10 17:25:00 Sunny Del Castillo [facility] URINALYSIS W/ REFLEX URINE 2020-03-10 17:25:00 Sunny Del Castillo [facility] SCREEN, URINE 2020-03-10 17:25:00 Sunny Del Castillo [facility] COMPREHENSIVE METABOLIC 2020-03-10 17:25:00 Yazmin Escamilla [facility] Plan of Care Planned Activity Planned Date Details Comments Source Future Scheduled 2023-12-07 Lipid panel [facility] - Test 00:00:00 (procedure) [code = [facility] 96177464] Future Scheduled 2021-03-[address] [facility] - Test 00:00:00 (#1) [code = [facility] INFLUENZA VACCINE (#1)] Future Scheduled 2020-07-[address] [facility] - Test 00:00:00 (12+) [code = [facility] DEPRESSION SCREENING (12+)] Future Scheduled [address] [facility] - Test 00:00:00 malignant neoplasm of [facility] cervix (procedure) [code = 787866923] Future Scheduled 2000 DTAP/TDAP/TD VACCINES [facility] Test 00:00:00 (1 - Tdap) [code = Medical C enter DTAP/TDAP/TD VACCINES (1 - Tdap)] Future Scheduled 1993 COVID-19 VACCINE (1) [facility] - Test 00:00:00 [code = COVID-[address] VACCINE (1)] Encounters Start End Encounter Admission Attending Care Care Encounter Source Date/Time Date/Time Type Type Clinicians Facility Department ID 2021-02-15 2021-02-15 Outpatient ANIL, [facility] [id number] [facility] 11:57:13 15:36:30 RENE [facility] 2021-02-15 2021-02-15 Outpatient BEDROSE, [facility] [id number] [facility] 08:55:31 14:38:00 JUSTIN [facility] 2021-02-14 2021-02-14 Outpatient TEEGAVARAPU [facility] [id number] [facility] 13:56:01 16:33:56 , ADIS [facility] 2021-01-25 2021-01-25 Outpatient MATHEWS, [facility] [id number] [facility] 09:49:49 13:10:07 OTF [facility] 2021-01-25 2021-01-25 Outpatient [facility] [id number] [facility] 09:49:27 13:07:35 [facility] 2021-01-18 2021-01-18 Outpatient TAWBI, [facility] [id number] [facility] 13:02:46 14:21:00 MAULIK [facility] 2021-01-18 2021-01-18 Office Tawbi, [facility] [id number] 13:02:46 14:21:00 Visit Maulik AMBULATOR [id number] Y [id number] [id number] 2021-01-18 2021-01-18 Outpatient HELDER, [facility] [id number] [facility] 08:58:54 09:03:16 ARTHUR [facility] 2021-01-04 2021-01-04 Outpatient MEGA, [facility] [id number] [facility] 08:19:42 10:51:05 DENISE [facility] 2021-01-04 2021-01-04 Office Mega, [place] [id number] 08:19:42 10:51:05 Visit Denise AMBULATOR [id number] [place] Y [id number] [id number] 2021-01-03 2021-01-03 Office BRIT Cisneros [id number] 12:58:53 13:35:12 Visit Marquis AMBULATOR [id number] Ted Y [id number] [id number] 2020-12-14 2020-12-14 Office Jay BCTania [id number] 13:04:19 13:30:11 Visit Maulik AMBULATOR [id number] Y [id number] [id number] 2020-12-14 2020-12-14 Office Stephen, BCM [id number] 09:44:05 10:14:05 Visit Oeulaliai AMBULATOR [id number] Y [id number] [id number] 2020-12-06 2020-12-06 Office Jay, BRIT [id number] 14:40:51 16:47:25 Visit Maulik AMBULATOR [id number] Y [id number] [id number] 2020-11-16 2020-11-16 Office BRIT Ayoub [id number] 10:30:00 10:45:00 Visit Denise AMBULATOR [id number] [place] Y [id number] [id number] 2020-08-17 2020-08-17 Outpatient MHSE PUL [id number] 15:52:00 15:52:00 [facility] 2019-05-07 2019-05-07 Outpatient Axel [facility] [id number] [place] 12:04:00 23:59:00 JAMEY [facility] 2019-03-21 2019-03-21 Emergency Scotty [facility] [id number] 06:46:08 09:09:00 Wily Mar [id number] Jesse [id number] [place] [id number] Results Test Test Test Comments Results Result Source Description Time Comments CT, CHEST, 2020- Referring; MEGA, WITHOUT -30 DENISE PETER MDCT CONTRAST 16:11:0 HIGH RESOLUTION WO [facility] 0 CONTRASTUnlisted [place] - MEDICAL Reason for Exam - CENTERName: ELPIDIO, Click Yes and Enter ERROL WOODRUFF : Reason 1980 Sex: Below->YesUnlisted F Reason for Exam->SARCOIDOSIS FINAL REPORT CT, CHEST, WITHOUT CONTRAST INDICATION: Unlisted Reason for ExamSARCOIDOSIS COMPARISON: CT abdomen pelvis 01/25/2021 TECHNIQUE: CT, CHEST, WITHOUT CONTRAST, ILD protocol. This exam was performed according to our departmental dose optimization program which includes automated exposure control, adjustment of the mA and/or kV according to patient size and/or use of iterative reconstruction technique. FINDINGS: Lack of intravenous contrast compromises evaluation of perfusion and for isodense lesions. Lungs: Scattered streaky foci of fibrosis in the lungs, involving all lobes, greatest in the right lower lobe, mostly extending from the hilum peripherally, some patch and not abutting the thierry, with a peribronchovascular distribution. No significant air trapping on expiratory phase. Central airways: Moderate traction bronchiectasis within the regions of fibrosis. Patent central airways.Pleura: No pleural effusion or pneumothorax.Lymph nodes: Calcified mediastinal lymph nodes related to old granulomatous diseaseHeart and pericardium: Trace pericardial effusion. Mild coronary artery calcifications.Great vessels: Normal calibers. Thyroid gland: Visualized portion unremarkableEsophagus: UnremarkableIncluded upper abdomen: Partially visualized right renal calculi. Splenomegaly. Mildly irregular liver contour.Chest wall: Unremarkable.Bones: Unremarkable. IMPRESSION: 1.Streaky scattered foci of mild to moderate parenchymal fibrosis and calcified hilar nodes presumably related to the history of sarcoidosis. 2.Mild coronary artery calcifications. 3.Cirrhotic liver contour with splenomegaly. 4.Right renal calculi. Signed: Duke Tadeo MDRwiltonort Verified Date/Time: 02/10/2021 16:11:35 Chest 2021-01 Interface, External Ris C HI St without IV -30 In - 02/10/2021 4:13 Elise es - Contrast 16:11:0 PM CDTFINAL REPORT Medica l [address], CHEST, WITHOUT CONTRAST INDICATION: Unlisted Reason for ExamSARCOIDOSIS COMPARISON: CT abdomen pelvis 01/25/2021 TECHNIQUE: CT, CHEST, WITHOUT CONTRAST, ILD protocol. This exam was performed according to our departmental dose optimization program which includes automated exposure control, adjustment of the mA and/or kV according to patient size and/or use of iterative reconstruction technique. FINDINGS: Lack of intravenous contrast compromises evaluation of perfusion and for isodense lesions. Lungs: Scattered streaky foci of fibrosis in the lungs, involving all lobes, greatest in the right lower lobe, mostly extending from the hilum peripherally, some patch and not abutting the thierry, with a peribronchovascular distribution. No significant air trapping on expiratory phase. Central airways: Moderate traction bronchiectasis within the regions of fibrosis. Patent central airways.Pleura: No pleural effusion or pneumothorax.Lymph nodes: Calcified mediastinal lymph nodes related to old granulomatous diseaseHeart and pericardium: Trace pericardial effusion. Mild coronary artery calcifications.Great vessels: Normal calibers. Thyroid gland: Visualized portion unremarkableEsophagus: UnremarkableIncluded upper abdomen: Partially visualized right renal calculi. Splenomegaly. Mildly irregular liver contour.Chest wall: Unremarkable.Bones: Unremarkable. IMPRESSION: 1.Streaky scattered foci of mild to moderate parenchymal fibrosis and calcified hilar nodes presumably related to the history of sarcoidosis. 2.Mild coronary artery calcifications. 3.Cirrhotic liver contour with splenomegaly. 4.Right renal calculi. Signed: Duke Tadeoort Verified Date/Time: 02/10/2021 16:11:35 T Spot TB 2021-02-06 12:23:00 Test Item Value Reference Range Interpretation Comme nts T-Spot TB (test code = 87765-5) Negative Neg Ctrl Spot Count (test code = 90770-3) 0 Panel A Spot (test code = 80189-2) 0 Panel B Spot (test code = 14111-0) [address] (test code = 91664-9) 0 Scan Result (test code = 3416443) ELADIA (test code = ELADIA) See scanned report [facility]Angiotensin [facility]verting Enzyme (MARYCARMEN)2021-02-05 01:28:00 Test Item Value Reference Range Interpretation Comments MARYCARMEN, Serum (test code = 253 U/L 9-67 H 2650561) ELADIA (test code = ELADIA) Performing Lab EZ [facility] [address] [place] [address] Tati Wallace MD, PhD, KATHRYN Lab Interpretation (test Abnormal code = 71553-1) [facility] HospitalBasic Metabolic [id number] 08:04:00 Test Item Value Reference Range Interpretation Comments Sodium (test code = 139 meq/L 597-669 8385-2) Potassium (test code = 4.1 meq/L 3.5-5.1 2823-3) Chloride (test code = 108 meq/L 98-107 H 2075-0) CO2 (test code = 24 meq/L 22-29 2028-9) BUN (test code = 26 mg/dL 7-21 H 3094-0) Creatinine (test code 1.03 mg/dL 0.57-1.25 = 2160-0) Glucose (test code = 84 mg/dL 70-105 2345-7) Calcium (test code = 11.0 mg/dL 8.4-10.2 H 26924-6) EGFR (test code = 72 mL/min/1.73 [place] [address]-4) NOT ACCURATE CREATININE CLEARANCE IN PREDICTING GLOMERULAR FILTRATION RATE . ESTIMATED GFR I S NOT APPLICABLE FOR DIALYSIS PATIENTS. ELADIA (test code = ELADIA) Wiring Mechanic ID - GURWINDER Marin Lab Interpretation Abnormal (test code = 97031-4) [facility] HospitalAlbumin2021-07-23 08:04:00 Test Item Value Reference Range Interpretation Comments Albumin (test code = 3.2 g/dL 3.5-5 L 98649-8) ELADIA (test code = ELADIA) Wiring Mechanic ID Irma Marin Lab Interpretation (test Abnormal code = 58213-8) [facility] HospitalBASIC METABOLIC [id number] 08:04:00 Test Item Value Reference Range Interpretation Comments SODIUM (BEAKER) 139 meq/L 136-145 (test code = 381) POTASSIUM (BEAKER) 4.1 meq/L 3.5-5.1 (test code = 379) CHLORIDE (BEAKER) 108 meq/L 98-107 H (test code = 382) CO2 (BEAKER) (test 24 meq/L 22-29 code = 355) BLOOD UREA NITROGEN 26 mg/dL 7-21 H (BEAKER) (test code = 354) CREATININE (BEAKER) 1.03 mg/dL 0.57-1.25 (test code = 358) GLUCOSE RANDOM 84 mg/dL 70-105 (BEAKER) (test code = 652) CALCIUM (BEAKER) 11.0 mg/dL 8.4-10.2 H (test code = 697) EGFR (BEAKER) (test 72 mL/min/1.73 ESTIMA RYANNE GFR IS code = 1092) sq m NOT ACCURATE CREATININE CLEARANCE IN PREDICTING GLOMERULAR FILTRATION RATE . ESTIMATED GFR I S NOT APPLICABLE FOR DIALYSIS PATIEN TS. Wiring Mechanic ID Irma PURDY [id number] 08:04:00 Test Item Value Reference Range Interpretation Comments ALBUMIN (BEAKER) (test code = 1145) 3.2 g/dL 3.5-5.0 L Wiring Mechanic ID Irma PURDY MCalcium, [id number] 07:53:00 Test Item Value Reference Range Interpretation Comments Calcium, Ion (test code = 1994-3) 1.46 mmol/L 1.12-1.27 H pH, Blood (test code = 91182-7) 7.38 Lab Interpretation (test code = Abnormal 30670-4) [facility] HospitalCALCIUM, [id number] 07:53:00 Test Item Value Reference Range Interpretation Comments CALCIUM IONIZED (BEAKER) (test 1.46 mmol/L 1.12-1.27 H code = 698) PH, BLOOD (BEAKER) (test code = 7.38 1810) CBC (Hemogram only)2021-02-03 07:45:00 Test Item Value Reference Range Interpretation Comments WBC (test code = 6690-2) 4.7 See_Comment [A utomated message] The system [employer] generated this result transmitted ref erence range: 3.5 - 10 .5 K/L. The refe rence range was not u sed to interpret this result as normal/abnor mal. RBC (test code = 789-8) 4.38 See_Comment [Au tomated message] The system [employer] generated this result transmitted ref erence range: 3.93 - 5 .22 M/L. The refe rence range was not u sed to interpret this result as normal/abnor mal. MCHC (test code = 786-4) 29.8 See_Comment L [A utomated message] The system [employer] generated this result transmitted ref erence range: 32.2 - 3 5.5 GM/DL. The refe rence range was not u sed to interpret this result as normal/abnor mal. Hematocrit (test code = 32.9 % 34.1-44.9 L 4544-3) MCV (test code = 787-2) 75.1 fL 79.4-94.8 L MCH (test code = 785-6) 22.4 pg 25.6-32.2 L RDW (test code = 788-0) 15.2 % 11.7-14.4 H Platelets (test code = 291 See_Comment [Aut omated message] 777-3) The system [employer] generated this result transmitted ref erence range: 150 - 45 0 K/CU MM. The referen ce range was not u sed to interpret this result as normal/abnor mal. MPV (test code = 10.1 fL 9.4-12.3 31552-9) nRBC (test code = 413) 0 See_Comment [Aut omated message] The system [employer] generated this result transmitted ref erence range: 0 - 0 /1 00 WBC. The refere nce range was not u sed to interpret this result as normal/abnor mal. Lab Interpretation (test Abnormal code = 84523-6) [facility] HospitalCBC (HEMOGRAM ONLY)2021-02-03 07:45:00 Test Item Value Reference Range Interpretation Comments WHITE BLOOD CELL COUNT (BEAKER) 4.7 K/ L 3.5-10.5 (test code = 775) RED BLOOD CELL COUNT (BEAKER) 4.38 M/ L 3.93-5.22 (test code = 761) HEMOGLOBIN (BEAKER) (test code = 9.8 GM/DL 11.2-15.7 L 410) HEMATOCRIT (BEAKER) (test code = 32.9 % 34.1-44.9 L 411) MEAN CORPUSCULAR VOLUME (BEAKER) 75.1 fL 79.4-94.8 L (test code = 753) MEAN CORPUSCULAR HEMOGLOBIN 22.4 pg 25.6-32.2 L (BEAKER) (test code = 751) MEAN CORPUSCULAR HEMOGLOBIN CONC 29.8 GM/DL 32.2-35.5 L (BEAKER) (test code = 752) RED CELL DISTRIBUTION WIDTH 15.2 % 11.7-14.4 H (BEAKER) (test code = 412) PLATELET COUNT (BEAKER) (test 291 K/CU MM 150-450 code = 756) MEAN PLATELET VOLUME (BEAKER) 10.1 fL 9.4-12.3 (test code = 754) NUCLEATED RED BLOOD CELLS 0 /100 WBC 0-0 (BEAKER) (test code = 413) PTH-related [id number] 17:39:00 Test Item Value Reference Interpretation Comments Range PTH-Related 10 pg/mL 14-27 L This is a C-te rminal Protein (test code PTH-RP as say. PTH-RP is = 9509899) useful in the differentialdia gnosis of hypercalcemia a nd levels may be elevated in patients withtumor-assoc iated hypercalcemia. Elevated results may als o be observed inpati ents with renal disease. This test was developed a nd its analytical perf ormance characteristics havebeen determined by [facility].It h as not been cleared or approved by FDA. This as say has been validatedp ursuant to the CLIA reg ulations and is used for clinical purposes. ELADIA (test code = Performing Lab ELADIA) EZ [employer] [facility] [address] [place] [address] Tati Wallace MD, PhD, KATHRYN Lab Interpretation Abnormal (test code = 34477-7) [facility] (Asymptomatic ONLY)2021-02-02 11:17:00 Test Item Value Reference Range Interpretation Comments SARS-COV2/RT-PCR Negative Not Detected, (test code = Negative, See 97851-9) external report for linked test SARS-COV-2 [facility] PERFORMING LAB (test code = 57752-6) ELADIA (test code = Negative result for [...] of the Act. Fact Sheet for Healthcare Providers:https://www.[employer]/sites/default/f renate/product/documents/F act_Sheet_HC_Providers_L kvm_RWKV-KoB-8.pdf Fact Sheet for Healthcare Patients:https://www.Jump[employer].com/sites/default/fi les/product/documents/Fa ct_Sheet_Patients_Lyra_S ARS-CoV-2.pdf Performing Laboratory:[facility] [place] [address] [facility]ARS-[facility]OV2/[facility]-PCR ([facility])2021-02-02 11:17:00 Test Item Value Reference Range Interpretation Comments SARS-COV2/RT-PCR (test Negative Not Detected, Negative, code = 6347944) See external report for linked test SARS-COV-2 PERFORMING LAB [facility] (test code = 4026273) Negative result for this test determines that [...] 564(g) of the Act.Fact Sheet for Healthcare Providers:https://www.[employer]/sites/default/files/product/documents/Fact_Shetsering tavaresy_HS_Smgjpoflv_Vlow_ZDAF-WbG-0.pdfFact Sheet for Healthcare Patients:https://www.[employer]/sites/default/files/product/ documents/Xhai_Syran_Ylccjpdl_Zxws_VPYV-EgH-0.pdfPerforming Laboratory:[facility], [place] [address]SKHIW METABOLIC PANEL 2021-02-02 06:58:00 Test Item Value Reference Range Interpretation Comments SODIUM (BEAKER) 139 meq/L 136-145 (test code = 381) POTASSIUM (BEAKER) 3.8 meq/L 3.5-5.1 (test code = 379) CHLORIDE (BEAKER) 108 meq/L 98-107 H (test code = 382) CO2 (BEAKER) (test 23 meq/L 22-29 code = 355) BLOOD UREA NITROGEN 22 mg/dL 7-21 H (BEAKER) (test code = 354) CREATININE (BEAKER) 0.94 mg/dL 0.57-1.25 (test code = 358) GLUCOSE RANDOM 80 mg/dL 70-105 (BEAKER) (test code = 652) CALCIUM (BEAKER) 11.8 mg/dL 8.4-10.2 H (test code = 697) EGFR (BEAKER) (test 80 mL/min/1.73 ESTIMA RYANNE GFR IS code = 1092) sq m NOT ACCURATE CREATININE CLEARANCE IN PREDICTING GLOMERULAR FILTRATION RATE . ESTIMATED GFR I S NOT APPLICABLE FOR DIALYSIS PATIEN TS. Wiring Mechanic ID - ZANEHUBER [id number] 06:54:00 Test Item Value Reference Range Interpretation Comments ALBUMIN (BEAKER) (test code = 1145) 3.1 g/dL 3.5-5.0 L Wiring Mechanic ID - SHANIKA LCALCIUM, [id number] 06:06:00 Test Item Value Reference Range Interpretation Comments CALCIUM IONIZED (BEAKER) (test 1.58 mmol/L 1.12-1.27 H code = 698) PH, BLOOD (BEAKER) (test code = 7.39 1810) [id number] 22:10:00 Test Item Value Reference Interpretation Comments Range Vit.D,1,25 138 pg/mL 18-72 H This test was developed (Oh)2,Tot (test and its anal ytical code = 5879751) performance characteristics have been determined by [facility]. It has not been cleared or approved by theFDA. This assay has been valida ryanne pursuant to the CLIA regulations and is used for clinical pu rposes. Vit.D3, 1,25 (Oh)2 27 pg/mL This gentry t was developed (test code = and its analyti fabiola 20191202) performance characteristics have been determined by [facility]. It has not been cleared or approved by theFDA. This assay has been valida ryanne pursuant to the CLIA regulations and is used for clinical pu rposes. Vit.D2, 1,25 (Oh)2 111 pg/mL Vitamin D3, 1,25(OH)2 (test code = indicates both 20191201) endogenousprodu ction and supplementation . Vitamin D2, 1,25(OH)2is an indicator of ex ogenous sources, such a s diet orsupplementati on. Interpretation and therapy are bas edon measurement of Vitamin D, 1,25 (OH)2, Total. This test was d eveloped and its analyti fabiola performance characteristics have been determined by [employer] [facility]. It has not been cleared or approved by theFDA. This assay has been valida ryanne pursuant to the CLIA regulations and is used for clinical pu rposes. For additional information, pl ease refer to http://educatio n.Tang [employer]/f aq/HUL125 (This link is b eideandra provided for informational/e ducationa l purposes only .) ELADIA (test code = Performing Lab ELADIA) *NELLY [employer] [facility], [address] [place] [id number] Sid Gagnon MD Lab Interpretation Abnormal (test code = 58796-0) [facility]RAD, [facility]ST, 1 VIEW, NON [id number] 13:20:00 Referring; DENISE AYOUB MDReason for exam:->SarcoidosisShould this be performed at the bedside?->Yes [facility]: ERROL MAGALLANES : 1980 Sex: FFINAL REPORT INDICATION: Sarcoidosis COMPARISON: None TECHNIQUE: Singl e frontal view of the chest. FINDINGS: Lungs and pleura: Clear lungs. No effusion.Heart and mediastinum: Normal heart size. Unremarkable mediastinal contours.Osseous structures: No acute abnormality.Other: None. IMPRESSION: No acute intrathoracic abnormality. Signed: Deidra Walden Verified Date/Time: 02/01/2021 13:20:17 Reading Location: [facility] Radiology Reading Room XR chest 1 view portable / [id number] 13:20:00 Interface, External Ris In - 02/01/2021 1:22 PM CDTFINAL REPORT INDICATION: Sarcoidosis COMPARISON: None TECHNIQUE: Single frontal view of the chest. FINDINGS: Lungs and pleura:Clear lungs. No effusion.Heart and mediastinum: Normal heart size. Unremarkable mediastinal contours.Osseous structures: No acute abnormality.Other: None. IMPRESSION: No acute intrathoracic abnormality. Signed: Deidra Walden Verified Date/Time: 02/01/2021 13:20:17 Reading Location: [facility] Radiology Reading Room [facility] [id number] 07:26:00 Test Item Value Reference Range Interpretation Comments SODIUM (BEAKER) 136 meq/L 136-145 (test code = 381) POTASSIUM (BEAKER) 3.8 meq/L 3.5-5.1 (test code = 379) CHLORIDE (BEAKER) 107 meq/L 98-107 (test code = 382) CO2 (BEAKER) (test 22 meq/L 22-29 code = 355) BLOOD UREA NITROGEN 19 mg/dL 7-21 (BEAKER) (test code = 354) CREATININE (BEAKER) 1.18 mg/dL 0.57-1.25 (test code = 358) GLUCOSE RANDOM 92 mg/dL 70-105 (BEAKER) (test code = 652) CALCIUM (BEAKER) 11.5 mg/dL 8.4-10.2 H (test code = 697) EGFR (BEAKER) (test 62 mL/min/1.73 ESTIMA RYANNE GFR IS code = 1092) sq m NOT ACCURATE CREATININE CLEARANCE IN PREDICTING GLOMERULAR FILTRATION RATE . ESTIMATED GFR I S NOT APPLICABLE FOR DIALYSIS PATIEN TS. Wiring Mechanic ID - PIAYA LCALCIUM, [id number] 06:43:00 Test Item Value Reference Range Interpretation Comments CALCIUM IONIZED (BEAKER) (test 1.53 mmol/L 1.12-1.27 H code = 698) PH, BLOOD (BEAKER) (test code = 7.38 1810) CBC (HEMOGRAM ONLY)2021-02-01 06:38:00 Test Item Value Reference Range Interpretation Comments WHITE BLOOD CELL COUNT (BEAKER) 4.0 K/ L 3.5-10.5 (test code = 775) RED BLOOD CELL COUNT (BEAKER) 4.40 M/ L 3.93-5.22 (test code = 761) HEMOGLOBIN (BEAKER) (test code = 9.9 GM/DL 11.2-15.7 L 410) HEMATOCRIT (BEAKER) (test code = 32.8 % 34.1-44.9 L 411) MEAN CORPUSCULAR VOLUME (BEAKER) 74.5 fL 79.4-94.8 L (test code = 753) MEAN CORPUSCULAR HEMOGLOBIN 22.5 pg 25.6-32.2 L (BEAKER) (test code = 751) MEAN CORPUSCULAR HEMOGLOBIN CONC 30.2 GM/DL 32.2-35.5 L (BEAKER) (test code = 752) RED CELL DISTRIBUTION WIDTH 15.1 % 11.7-14.4 H (BEAKER) (test code = 412) PLATELET COUNT (BEAKER) (test 303 K/CU MM 150-450 code = 756) MEAN PLATELET VOLUME (BEAKER) 10.8 fL 9.4-12.3 (test code = 754) NUCLEATED RED BLOOD CELLS 0 /100 WBC 0-0 (BEAKER) (test code = 413) Clostridium difficile GDH [id number] 13:06:00 Test Item Value Reference Range Interpretation Comments C. Difficle Toxin Negative Negative (test code = 3346415878) C. Difficile GDH Negative Negative No indicati on of Antigen (test code = Clostri dium 2932592713) difficile infection and n o colonization. Discontinue [...] use. Lab Interpretation Normal (test code = 01168-9) [facility] Hospital[facility]. DIFFICILE GDH [id number] 13:06:00 Test Item Value Reference Range Interpretation Comments CDT TOXIN (test code Negative Negative = 9262734462) CDT GDH ANTIGEN (test Negative Negative No ind ication of code = 1717436897) Clostridi um difficile infection and n o [...] [facility] Microbiology Lab prior to clinical use.BASIC METABOLIC [id number] 06:50:00 Test Item Value Reference Range Interpretation Comments SODIUM (BEAKER) 136 meq/L 136-145 (test code = 381) POTASSIUM (BEAKER) 4.1 meq/L 3.5-5.1 (test code = 379) CHLORIDE (BEAKER) 108 meq/L 98-107 H (test code = 382) CO2 (BEAKER) (test 19 meq/L 22-29 L code = 355) BLOOD UREA NITROGEN 13 mg/dL 7-21 (BEAKER) (test code = 354) CREATININE (BEAKER) 0.93 mg/dL 0.57-1.25 (test code = 358) GLUCOSE RANDOM 82 mg/dL 70-105 (BEAKER) (test code = 652) CALCIUM (BEAKER) 10.9 mg/dL 8.4-10.2 H (test code = 697) EGFR (BEAKER) (test 81 mL/min/1.73 ESTIMA RYANNE GFR IS code = 1092) sq m NOT ACCURATE CREATININE CLEARANCE IN PREDICTING GLOMERULAR FILTRATION RATE . ESTIMATED GFR I S NOT APPLICABLE FOR DIALYSIS PATIEN TS. Wiring Mechanic ID - TRISH MCALCIUM, [id number] 05:54:00 Test Item Value Reference Range Interpretation Comments CALCIUM IONIZED (BEAKER) (test 1.44 mmol/L 1.12-1.27 H code = 698) PH, BLOOD (BEAKER) (test code = 7.39 1810) [id number] 16:20:00 Test Item Value Reference Range Interpretation Comments Ferritin (test code = 56.96 ng/mL 5-275 2276-4) ELADIA (test code = ELADIA) Wiring Mechanic ID - db Lab Interpretation (test Normal code = 89337-8) [facility] HospitalFERRITIN2021-07-19 16:20:00 Test Item Value Reference Range Interpretation Comments FERRITIN (BEAKER) (test code = 56.96 ng/mL 5.00-275.00 361) Wiring Mechanic ID - dbImmunofixation electrophoresis (OMEGA)2021-01-30 16:02:00 Test Item Value Reference Range Interpretation Comments IgG (test code = 2465-3) 1856 mg/dL 540-1822 H IgA (test code = 2458-8) 407 mg/dL 63-484 IgM (test code = 2464-6) 138 mg/dL 22-293 Serum OMEGA Identification Faint IgG lambda (test code = 1814) band present. Pathologist: (test code = Mary Ann Holcomb MD 6857) (electronic signature) ELADIA (test code = ELADIA) Wiring Mechanic ID - GURWINDER Tania Lab Interpretation (test Abnormal code = 23619-7) [facility] HospitalIMMUNOFIXATION ELECTROPHORESIS (OMEGA)2021-01-30 16:02:00 Test Item Value Reference Range Interpretation Comments IMMUNOGLOBULIN G 1856 mg/dL See_Comment H [Automated (IGG) (BEAKER) (test message ] The code = 427) system which generated this result transmit ryanne reference range : 540-1,822. The reference range was not used to interpret this result as normal/abnormal . IMMUNOGLOBULIN A 407 mg/dL 63-484 (IGA) (BEAKER) (test code = 639) IMMUNOGLOBULIN M 138 mg/dL 22-293 (IGM) (BEAKER) (test code = 638) SERUM OMEGA ID (BEAKER) Faint IgG (test code = 1814) lambda band present. [id number] Mary Ann Holcomb, (BEAKER) (test code = MD (electronic 5131) signature) Wiring Mechanic ID - GURWINDER Roth, TIBC, % sat. (without ferritin)2021-01-30 15:54:00 Test Item Value Reference Range Interpretation Comments Iron (test code = 2498-4) 53.0 ug/dL 40-160 TIBC (test code = 2500-7) 320 ug/dL 250-450 Iron % Saturation (test code 17 % 20-55 L = 2502-3) ELADIA (test code = ELADIA) Wiring Mechanic ID - db Lab Interpretation (test Abnormal code = 79769-3) [facility] HospitalIRON, TIBC, % SAT. (WITHOUT FERRITIN)2021-01-30 15:54:00 Test Item Value Reference Range Interpretation Comments IRON (BEAKER) (test code = 547) 53.0 ug/dL 40.0-160.0 TOTAL IRON BINDING CAPACITY 320 ug/dL 250-450 (BEAKER) (test code = 769) IRON % SATURATION (2) (BEAKER) 17 % 20-55 L (test code = 2590) Wiring Mechanic ID - dbProtein electrophoresis, [id number] 14:18:00 Test Item Value Reference Interpretation Comments Range Albumin Fraction 2.7 See_Comment L [Automated (test code = 405) message] T [employer] system which generated this result transmitted reference range : 3.5 - 5.5 gm/dL . The reference range was not used to interpret this result as normal/abnormal . Alpha 1 Fraction 0.3 See_Comment [Automated (test code = 389) message] T [employer] system which generated this result transmitted reference range : 0.2 - 0.4 gm/dL . The reference range was not used to interpret this result as normal/abnormal . Alpha 2 Fraction 0.7 See_Comment [Automated (test code = 390) message] T he system which generated this result transmitted reference range : 0.5 - 0.9 gm/dL . The reference range was not used to interpret this result as normal/abnormal . Beta Fraction (test 1.1 See_Comment [Automa ryanne code = 392) message] The system which generated this result transmitted reference range : 0.6 - 1.1 gm/dL . The reference range was not used to interpret this result as normal/abnormal . Gamma Globulin 2.0 See_Comment H [Automated Fraction (test code message] The = 391) system which generated this result transmitted reference range : 0.7 - 1.7 gm/dL . The reference range was not used to interpret this result as normal/abnormal . Interpretation (test Gamma globulins code = 2615) increased. This indicates a chronic immune or inflammatory response.Please refere to serum immunofixation electrophoresis. Pathologist: (test Mary Ann Holcomb MD code = 2616) (electronic signature) Protein, Total (test 6.9 See_Comment [Autom ated code = 4030) message] The system which generated this result transmitted reference range : 6.0 - 8.3 gm/dL . The reference range was not used to interpret this result as normal/abnormal . ELADIA (test code = Wiring Mechanic ID - GURWINDER MONTILLA) M Lab Interpretation Abnormal (test code = 81006-5) [facility] HospitalPROTEIN ELECTROPHORESIS, [id number] 14:18:00 Test Item Value Reference Range Interpretation Comments ALBUMIN FRACTION 2.7 gm/dL 3.5-5.5 L (BEAKER) (test code = 405) ALPHA 1 FRACTION 0.3 gm/dL 0.2-0.4 (BEAKER) (test code = 389) ALPHA 2 FRACTION 0.7 gm/dL 0.5-0.9 (BEAKER) (test code = 390) BETA FRACTION 1.1 gm/dL 0.6-1.1 (BEAKER) (test code = 392) GAMMA GLOBULIN 2.0 gm/dL 0.7-1.7 H FRACTION (BEAKER) (test code = 391) INTERPRETATION-119 Gamma globulins (BEAKER) (test code increased. This indicates = 2615) a chronic immune or inflammatory response.Please refere to serum immunofixation electrophoresis. [id number] Mary Ann Holcomb MD (BEAKER) (test code (electronic signature) = 5728) PROTEIN TOTAL SERUM, 6.9 gm/dL 6.0-8.3 SPEP (BEAKER) (test code = 6360) Wiring Mechanic ID - GURWINDER MBASIC METABOLIC [id number] 06:03:00 Test Item Value Reference Range Interpretation Comments SODIUM (BEAKER) 137 meq/L 136-145 (test code = 381) POTASSIUM (BEAKER) 4.1 meq/L 3.5-5.1 (test code = 379) CHLORIDE (BEAKER) 110 meq/L 98-107 H (test code = 382) CO2 (BEAKER) (test 20 meq/L 22-29 L code = 355) BLOOD UREA NITROGEN 12 mg/dL 7-21 (BEAKER) (test code = 354) CREATININE (BEAKER) 0.81 mg/dL 0.57-1.25 (test code = 358) GLUCOSE RANDOM 86 mg/dL 70-105 (BEAKER) (test code = 652) CALCIUM (BEAKER) 9.8 mg/dL 8.4-10.2 (test code = 697) EGFR (BEAKER) (test 95 mL/min/1.73 ESTIMA RYANNE GFR IS code = 1092) sq m NOT ACCURATE CREATININE CLEARANCE IN PREDICTING GLOMERULAR FILTRATION RATE . ESTIMATED GFR I S NOT APPLICABLE FOR DIALYSIS PATIEN TS. Wiring Mechanic ID Irma [facility] (HEMOGRAM ONLY)2021-01-30 05:51:00 Test Item Value Reference Range Interpretation Comments WHITE BLOOD CELL COUNT (BEAKER) 3.1 K/ L 3.5-10.5 L (test code = 775) RED BLOOD CELL COUNT (BEAKER) 4.17 M/ L 3.93-5.22 (test code = 761) HEMOGLOBIN (BEAKER) (test code = 9.4 GM/DL 11.2-15.7 L 410) HEMATOCRIT (BEAKER) (test code = 31.3 % 34.1-44.9 L 411) MEAN CORPUSCULAR VOLUME (BEAKER) 75.1 fL 79.4-94.8 L (test code = 753) MEAN CORPUSCULAR HEMOGLOBIN 22.5 pg 25.6-32.2 L (BEAKER) (test code = 751) MEAN CORPUSCULAR HEMOGLOBIN CONC 30.0 GM/DL 32.2-35.5 L (BEAKER) (test code = 752) RED CELL DISTRIBUTION WIDTH 15.3 % 11.7-14.4 H (BEAKER) (test code = 412) PLATELET COUNT (BEAKER) (test 290 K/CU MM 150-450 code = 756) MEAN PLATELET VOLUME (BEAKER) 10.5 fL 9.4-12.3 (test code = 754) NUCLEATED RED BLOOD CELLS 0 /100 WBC 0-0 (BEAKER) (test code = 413) CALCIUM, [id number] 05:50:00 Test Item Value Reference Range Interpretation Comments CALCIUM IONIZED (BEAKER) (test 1.35 mmol/L 1.12-1.27 H code = 698) PH, BLOOD (BEAKER) (test code = 7.39 1810) PTH, [id number] 02:02:00 Test Item Value Reference Range Interpretation Comments PTH (test code = 2731-8) 8.8 pg/mL 8.5-72.5 ELADIA (test code = ELADIA) Wiring Mechanic ID - TRISH M Lab Interpretation (test Normal code = 74578-4) [facility] [id number] 02:02:00 Test Item Value Reference Range Interpretation Comments PARATHYROID HORMONE INTACT (BEAKER) 8.8 pg/mL 8.5-72.5 (test code = 577) Wiring Mechanic ID - TRISH MCALCIUM, [id number] 05:23:00 Test Item Value Reference Range Interpretation Comments CALCIUM IONIZED (BEAKER) (test 1.36 mmol/L 1.12-1.27 H code = 698) PH, BLOOD (BEAKER) (test code = 7.41 1810) BASIC METABOLIC [id number] 05:15:00 Test Item Value Reference Range Interpretation Comments SODIUM (BEAKER) 138 meq/L 136-145 (test code = 381) POTASSIUM (BEAKER) 3.8 meq/L 3.5-5.1 (test code = 379) CHLORIDE (BEAKER) 108 meq/L 98-107 H (test code = 382) CO2 (BEAKER) (test 23 meq/L 22-29 code = 355) BLOOD UREA NITROGEN 18 mg/dL 7-21 (BEAKER) (test code = 354) CREATININE (BEAKER) 1.01 mg/dL 0.57-1.25 (test code = 358) GLUCOSE RANDOM 92 mg/dL 70-105 (BEAKER) (test code = 652) CALCIUM (BEAKER) 10.2 mg/dL 8.4-10.2 (test code = 697) EGFR (BEAKER) (test 74 mL/min/1.73 ESTIMA RYANNE GFR IS code = 1092) sq m NOT ACCURATE CREATININE CLEARANCE IN PREDICTING GLOMERULAR FILTRATION RATE . ESTIMATED GFR I S NOT APPLICABLE FOR DIALYSIS PATIEN TS. Wiring Mechanic ID - PIAYA [facility] (HEMOGRAM ONLY)2021-01-29 04:54:00 Test Item Value Reference Range Interpretation Comments WHITE BLOOD CELL COUNT (BEAKER) 3.3 K/ L 3.5-10.5 L (test code = [...] code = 751) MEAN CORPUSCULAR HEMOGLOBIN CONC 30.0 GM/DL 32.2-35.5 L (BEAKER) (test code = 752) RED CELL DISTRIBUTION WIDTH 15.2 % 11.7-14.4 H (BEAKER) (test code = 412) PLATELET COUNT (BEAKER) (test 268 K/CU MM 150-450 code = 756) MEAN PLATELET VOLUME (BEAKER) 10.2 fL 9.4-12.3 (test code = 754) NUCLEATED RED BLOOD CELLS 0 /100 WBC 0-0 (BEAKER) (test code = 413) Vitamin D, [id number] 13:17:00 Test Item Value Reference Range Interpretation Comments Vitamin D 25-Hydroxy 12.8 ng/mL 6.6-49.9 (test code = 2764) ELADIA (test code = ELADIA) Effective 04/24/2017: Reference Range ChangeNew: 6.6-49.9 ng/mL Previous: 13.0-47.8 ng/mL Recommended Vitamin D Target Range: 30.0-40.0 ng/mLOperator SANTANA PURDY M Lab Interpretation (test Normal code = 83937-4) [facility], [id number] 13:17:00 Test Item Value Reference Range Interpretation Comments VITAMIN D 25-OH (BEAKER) (test 12.8 ng/mL 6.6-49.9 code = 2764) Effective 04/24/2017: Reference Range ChangeNew: 6.6-49.9 ng/mL Previous: 13.0-47.8 ng/mLRecommended Vitamin D Target Range: 30.0-40.0 ng/mLOperator SANTANA PURDY MBASIC METABOLIC [id number] 04:34:00 Test Item Value Reference Range Interpretation Comments SODIUM (BEAKER) 137 meq/L 136-145 (test code = 381) POTASSIUM (BEAKER) 4.3 meq/L 3.5-5.1 (test code = 379) CHLORIDE (BEAKER) 109 meq/L 98-107 H (test code = 382) CO2 (BEAKER) (test 19 meq/L 22-29 L code = 355) BLOOD UREA NITROGEN 25 mg/dL 7-21 H (BEAKER) (test code = 354) CREATININE (BEAKER) 1.32 mg/dL 0.57-1.25 H (test code = 358) GLUCOSE RANDOM 84 mg/dL 70-105 (BEAKER) (test code = 652) CALCIUM (BEAKER) 11.9 mg/dL 8.4-10.2 H (test code = 697) EGFR (BEAKER) (test 54 mL/min/1.73 ESTIMA RYANNE GFR IS code = 1092) sq m NOT ACCURATE CREATININE CLEARANCE IN PREDICTING GLOMERULAR FILTRATION RATE . ESTIMATED GFR I S NOT APPLICABLE FOR DIALYSIS PATIEN TS. Wiring Mechanic ID - TRISH [facility] (HEMOGRAM ONLY)2021-01-28 04:05:00 Test Item Value Reference Range Interpretation Comments WHITE BLOOD CELL COUNT (BEAKER) 3.4 K/ L 3.5-10.5 L (test code = 775) RED BLOOD CELL COUNT (BEAKER) 4.06 M/ L 3.93-5.22 (test code = 761) [...] code = 752) RED CELL DISTRIBUTION WIDTH 15.3 % 11.7-14.4 H (BEAKER) (test code = 412) PLATELET COUNT (BEAKER) (test 280 K/CU MM 150-450 code = 756) MEAN PLATELET VOLUME (BEAKER) 10.9 fL 9.4-12.3 (test code = 754) NUCLEATED RED BLOOD CELLS 0 /100 WBC 0-0 (BEAKER) (test code = 413) CALCIUM, [id number] 03:53:00 Test Item Value Reference Range Interpretation Comments CALCIUM IONIZED (BEAKER) (test 1.58 mmol/L 1.12-1.27 H code = 698) PH, BLOOD (BEAKER) (test code = 7.39 1810) BASIC METABOLIC [id number] 08:01:00 Test Item Value Reference Range Interpretation Comments SODIUM (BEAKER) 138 meq/L 136-145 (test code = 381) POTASSIUM (BEAKER) 3.9 meq/L 3.5-5.1 (test code = 379) CHLORIDE (BEAKER) 109 meq/L 98-107 H (test code = 382) CO2 (BEAKER) (test 19 meq/L 22-29 L code = 355) BLOOD UREA NITROGEN 29 mg/dL 7-21 H (BEAKER) (test code = 354) CREATININE (BEAKER) 1.47 mg/dL 0.57-1.25 H (test code = 358) GLUCOSE RANDOM 82 mg/dL 70-105 (BEAKER) (test code = 652) CALCIUM (BEAKER) 11.2 mg/dL 8.4-10.2 H (test code = 697) EGFR (BEAKER) (test 48 mL/min/1.73 ESTIMA RYANNE GFR IS code = 1092) sq m NOT ACCURATE CREATININE CLEARANCE IN PREDICTING GLOMERULAR FILTRATION RATE . ESTIMATED GFR I S NOT APPLICABLE FOR DIALYSIS PATIEN TS. Wiring Mechanic ID - [id number] 08:00:00 Test Item Value Reference Range Interpretation Comments Magnesium (test code = 1.6 mg/dL 1.6-2.6 75421-0) ELADIA (test code = ELADIA) Wiring Mechanic ID - EDASI Lab Interpretation (test Normal code = 37445-4) [facility] 08:00:00 Test Item Value Reference Range Interpretation Comments Phosphorus (test code = 4.0 mg/dL 2.3-4.7 2777-1) ELADIA (test code = ELADIA) Wiring Mechanic ID - EDASI Lab Interpretation (test Normal code = 10017-0) [facility]21-[facility] 08:00:00 Test Item Value Reference Range Interpretation Comments MAGNESIUM (BEAKER) (test code = 1.6 mg/dL 1.6-2.6 627) Wiring Mechanic ID - [id number] 08:00:00 Test Item Value Reference Range Interpretation Comments PHOSPHORUS (BEAKER) (test code = 4.0 mg/dL 2.3-4.7 604) Wiring Mechanic ID - EDASICALCIUM, [id number] 06:31:00 Test Item Value Reference Range Interpretation Comments CALCIUM IONIZED (BEAKER) (test 1.52 mmol/L 1.12-1.27 H code = 698) PH, BLOOD (BEAKER) (test code = 7.35 1810) CBC (HEMOGRAM ONLY)2021-01-27 06:12:00 Test Item Value Reference Range Interpretation Comments WHITE BLOOD CELL COUNT (BEAKER) 3.5 K/ L 3.5-10.5 (test code = 775) RED BLOOD CELL COUNT (BEAKER) 4.09 M/ L 3.93-5.22 (test code = 761) HEMOGLOBIN (BEAKER) (test code = 9.3 GM/DL 11.2-15.7 L 410) HEMATOCRIT (BEAKER) (test code = 30.2 % 34.1-44.9 L 411) MEAN CORPUSCULAR VOLUME (BEAKER) 73.8 fL 79.4-94.8 L (test code = 753) MEAN CORPUSCULAR HEMOGLOBIN 22.7 pg 25.6-32.2 L (BEAKER) (test code = 751) MEAN CORPUSCULAR HEMOGLOBIN CONC 30.8 GM/DL 32.2-35.5 L (BEAKER) (test code = 752) RED CELL DISTRIBUTION WIDTH 15.4 % 11.7-14.4 H (BEAKER) (test code = 412) PLATELET COUNT (BEAKER) (test 231 K/CU MM 150-450 code = 756) MEAN PLATELET VOLUME (BEAKER) 9.8 fL 9.4-12.3 (test code = 754) NUCLEATED RED BLOOD CELLS 0 /100 WBC 0-0 (BEAKER) (test code = 413) SARS-COV2/RT-PCR ([facility])2021-01-26 14:33:00 Test Item Value Reference Range Interpretation Comments SARS-COV2/RT-PCR (test Negative Not Detected, Negative, code = 0085040) See external report for linked test SARS-COV-2 PERFORMING LAB [facility] (test code = 3951962) Negative result for this test determines that [...] 564(g) of the Act.Fact Sheet for Healthcare Providers:https://www.[employer]/sites/default/files/product/documents/Fact_Shee m_MP_Lbhxthdgk_Wdap_EUPT-QeE-1.pdfFact Sheet for Healthcare Patients:https://www.[employer]/sites/default/files/product/ documents/Mahc_Tjyqi_Ajdxvysa_Evod_MXUC-LeC-3.pdfPerforming Laboratory:[facility], [place] [id number] 06:06:00 Test Item Value Reference Range Interpretation Comments MAGNESIUM (BEAKER) (test code = 1.6 mg/dL 1.6-2.6 627) Wiring Mechanic ID - [id number] 06:06:00 Test Item Value Reference Range Interpretation Comments PHOSPHORUS (BEAKER) (test code = 4.8 mg/dL 2.3-4.7 H 604) Wiring Mechanic ID - [id number] 06:06:00 Test Item Value Reference Range Interpretation Comments ALBUMIN (BEAKER) (test code = 1145) 2.8 g/dL 3.5-5.0 L Wiring Mechanic ID - ADMINBASIC METABOLIC [id number] 06:06:00 Test Item Value Reference Range Interpretation Comments SODIUM (BEAKER) 136 meq/L 136-145 (test code = 381) POTASSIUM (BEAKER) 4.0 meq/L 3.5-5.1 (test code = 379) CHLORIDE (BEAKER) 107 meq/L 98-107 (test code = 382) CO2 (BEAKER) (test 18 meq/L 22-29 L code = 355) BLOOD UREA NITROGEN 30 mg/dL 7-21 H (BEAKER) (test code = 354) CREATININE (BEAKER) 1.56 mg/dL 0.57-1.25 H (test code = 358) GLUCOSE RANDOM 89 mg/dL 70-105 (BEAKER) (test code = 652) CALCIUM (BEAKER) 12.0 mg/dL 8.4-10.2 H (test code = 697) EGFR (BEAKER) (test 45 mL/min/1.73 ESTIMA RYANNE GFR IS code = 1092) sq m NOT ACCURATE CREATININE CLEARANCE IN PREDICTING GLOMERULAR FILTRATION RATE . ESTIMATED GFR I S NOT APPLICABLE FOR DIALYSIS PATIEN TS. Wiring Mechanic ID - ADMINProthrombin time/[id number] 04:58:00 Test Item Value Reference Interpretation Comments Range Protime (test code = 14.5 See_Comment H [Autom ated 8639-2) message] The system which generated this result transmitted reference range : 11.9 - 14.2 seconds. The reference range was not used to interpret this result as normal/abnormal . INR (test code = 1.15 See_Comment [Automated 3937-6) message] The system which generated this result transmitted reference range : <=5.90. The reference range was not used to interpret this result as normal/abnormal . ELADIA (test code = RECOMMENDED ELADIA) COUMADIN/WARFARIN INR THERAPY RANGESSTANDARD DOSE: 2.0 - 3.0 Includes: PROPHYLAXIS for venous thrombosis, systemic embolization; TREATMENT for venous thrombosis and/or pulmonary embolus.HIGH RISK: Target INR is 2.5-3.5 for patients with mechanical heart valves. Lab Interpretation Abnormal (test code = 98248-2) [facility] HospitalPROTHROMBIN TIME/[id number] 04:58:00 Test Item Value Reference Range Interpretation Comments PROTIME (BEAKER) 14.5 seconds 11.9-14.2 H (test code = 759) INR (BEAKER) (test 1.15 See_Comment [Automat ed message] code = 370) The system [employer] h generated this result transmitted ref erence range: <=5.90. The reference range was not used to int erpret this result as normal/abnormal . RECOMMENDED COUMADIN/WARFARIN INR THERAPY RANGESSTANDARD DOSE: 2.0 - 3.0 Includes: PROPHYLAXIS forvenous thrombosis, systemic embolization; TREATMENT for venous thrombosis and/or pulmonary embolus.HIGH RISK: Target INR is 2.5-3.5 for patients with mechanical heart valves.CALCIUM, [id number] 04:52:00 Test Item Value Reference Range Interpretation Comments CALCIUM IONIZED (BEAKER) (test 1.47 mmol/L 1.12-1.27 H code = 698) PH, BLOOD (BEAKER) (test code = 7.34 1810) CBC (HEMOGRAM ONLY)2021-01-26 04:43:00 Test Item Value Reference Range Interpretation Comments WHITE BLOOD CELL COUNT (BEAKER) 4.4 K/ L 3.5-10.5 (test code = 775) RED BLOOD CELL COUNT (BEAKER) 4.00 M/ L 3.93-5.22 (test code = 761) HEMOGLOBIN (BEAKER) (test code = 9.2 GM/DL 11.2-15.7 L 410) HEMATOCRIT (BEAKER) (test code = 30.3 % 34.1-44.9 L 411) MEAN CORPUSCULAR VOLUME (BEAKER) 75.8 fL 79.4-94.8 L (test code = 753) MEAN CORPUSCULAR HEMOGLOBIN 23.0 pg 25.6-32.2 L (BEAKER) (test code = 751) MEAN CORPUSCULAR HEMOGLOBIN CONC 30.4 GM/DL 32.2-35.5 L (BEAKER) (test code = 752) RED CELL DISTRIBUTION WIDTH 15.5 % 11.7-14.4 H (BEAKER) (test code = 412) PLATELET COUNT (BEAKER) (test 274 K/CU MM 150-450 code = 756) MEAN PLATELET VOLUME (BEAKER) 9.9 fL 9.4-12.3 (test code = 754) NUCLEATED RED BLOOD CELLS 0 /100 WBC 0-0 (BEAKER) (test code = 413) CT, [id number] 21:56:00Referring; DENISE AYOUB MDUnlisted Reason for Exam - Click Yes and Enter Reason Below->NoWill this procedure require oral contrast?->No [facility] ERROL AMGALLANES : 1980 Sex: FFINAL REPORT CT, ABDOMEN \\T\\ PELVIS, WITHOUT IV CONTRAST INDICATION: A bdominal pain, acute, nonlocalized. Left flank pain. COMPARISON: CT abdomen pelvis dated 01/11/2021 TECHNIQUE:Contrast abdomen and pelvis CT. Coronal and sagittal reformatted images obtained. DOSE REDUCTION: Dose modulation, iterative reconstruction, and/or weight-based adjustment of the mA/kV was uti lized to reduce the radiation dose to as low as reasonably achievable. FINDINGS: Lower thorax: Unchanged linear airspace opacities in the bilateral lower lungs likely related to scarring and atelectasis . No pleural effusion. The heart is normal in size. No pericardial effusion. Unchanged prominent precardiac lymph nodes. Liver: Lack of intravenous contrast material limits evaluation for suspicious hepatic lesions.Heterogeneous appearance of the hepatic parenchyma. Hepatomegaly. Nodular contour of the hepatic parenchymaGallbladder and biliary tree: Cholelithiasis. No gallbladder wall thickening or ductal dilatation.Pancreas: No acute findings.Spleen: Splenomegaly.Adrenal Glands: No acute findings.Kidneys and ureters: Bilateral nonobstructing nephrolithiasis. Mild left pelvocaliectasis. No contourdeforming renal lesions. Increased left perinephric soft tissue stranding.Bladder and reproductive organs: Unremarkable. Stomach and Duodenum: No significant findings.Small and large intestine: Normal calibers. 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 No evidence of obstruction. Diverticulosis of the large bowel without evidence of acute diverticulitis.Appendix: Normal. Major vascular structures: Normal aortic caliber.Peritoneum and retroperitoneum: Again noted are multiple enlarged retroperitoneal lymph nodes, unchanged in the interval. Mild soft tissue stranding throughout the mesentery. No drainable fluid collections. No pneumoperitoneum. Skeleton: No acute bony abnormality.Additional findings: Fat stranding within the subcutaneous soft tiss ues. No drainable fluid collection is identified.. IMPRESSION: Hepatosplenomegaly. Nodular contourof the liver with heterogeneous hepatic parenchyma is concerning for severe hepatocellular dysfunction/cirrhosis, correlate with history. Cholelithiasis without evidence of acute cholecystitis. Bilateral nonobstructing nephrolithiasis with unchanged mild left pelvic caliectasis. No ureteral stones. There is however increase left perinephric stranding, nonspecific however correlate with urinalysis as pyelonephritis can have this appearance. Again noted are multiple enlarged retroperitoneal lymph nodes, unchanged in the interval. Nonspecific however possibly related to patient's history sarcoidosis. Signed: Emily Romero MDReport Verified Date/Time: 01/25/2021 21:56:25 CT abdomen pelvis without contrast 2021-01-25 21:56:00Interface, External Ris In - 01/25/2021 9:[address], ABDOMEN \\T\\ PELVIS, WITHOUT IV CONTRAST INDICATION: Abdominal pain, acute, nonlocalized. Left flank pain. COMPARISON: CT abdomen pelvis dated 01/11/2021 TECHNIQUE:Contrast abdomen and pelvis CT. Coronal and sagittal reformatted images obtained. DOSE REDUCTION: Dose modulation, iterative reconstruction, and/orweight-based adjustment of the mA/kV was utilized to reduce the radiation dose to as low as reasonably achievable. FINDINGS: Lower thorax: Unchanged linear airspace opacities in the bilateral lower lungs likely related to scarring and atelectasis . No pleural effusion. The heart is normal in size. No pericardial effusion. Unchanged prominent precardiac lymph nodes. Liver: Lack of intravenous contrastmaterial limits evaluation for suspicious hepatic lesions.Heterogeneous appearance of the hepatic parenchyma. Hepatomegaly. Nodular contour of the hepatic parenchymaGallbladder and biliary tree: Cholelithiasis. No gallbladder wall thickening or ductal dilatation.Pancreas: No acute findings.Spleen: Sple nomegaly.Adrenal Glands: No acute findings.Kidneys and ureters: Bilateral nonobstructing nephrolithiasis. Mild left pelvocaliectasis. No contour deforming renal lesions. Increased left perinephric softtissue stranding.Bladder and reproductive organs: Unremarkable. Stomach and Duodenum: No significant findings.Small and large intestine: Normal calibers. 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 No evidence of obstruction. Diverticulosis of the large bowel without evidence of acute diverticulitis.Appendix: Normal. Major vascular structures: Normal aortic caliber.Peritoneum and retroperitoneum: Again noted are multiple enlarged retroperitoneal lymph nodes, unchanged in the interval. Mild soft tissue stranding throughout the mesentery. No drainable fluid collections. No pneumoperitoneum. Skeleton: No acute bony abnormality.Additional findings: Fat stranding within the subcutaneous soft tissues. No drainable fluid collection is identified.. IMPRESSION: Hepatosplenomegaly. Nodular contour of the liver with heterogeneous hepatic parenchyma is concerning for severe hepatocellular dysfunction/cirrhosis, correlate with history. Cholelithiasis without evidence of acute cholecystitis. Bilateral nonobstructing nephrolithiasis with unchanged mild left pelvic caliectasis. No ureteral stones. There is however increase left perinephric stranding, nonspecific however correlate with urinalysis as pyelonephritis can have this appearance. Again noted are multiple enlarged retroperitoneal lymph nodes, unchanged in the interval. Nonspecific however possibly related to patient's history sarcoidosis. Signed: [facility] Verified Date/Time: 01/25/2021 21:56:25 [facility], quantitative, [id number] 17:13:00 Test Item Value Reference Range Interpretation Comments hCG Quant (test code <1 See_Comment [Autom ated = 58801-0) message] The system which generated this result [...] 10,000-100,000 6-8 Weeks 15,000-200,000 2-3 Months 10,000-100,000 Wiring Mechanic ID - BS Lab Interpretation Normal (test code = 73779-8) [facility], QUANTITATIVE, [id number] 17:13:00 Test Item Value Reference Range Interpretation Comments GONADOTROPIN, CHORIONIC (HCG) QUANT < mIU/mL 0-10 (BEAKER) (test code = 649) Non- Females: <10 mIU/mL Females: Gestation Age Reference Range(mIU/mL) 0.2-1 Week 5-50 1-2 Weeks 50-500 2-3 Weeks 100-5,000 3-4Weeks 500-10,000 4-5 Weeks 1,000-50,000 5-6 Weeks 10,000-100,000 6-8 Weeks 15,000-200,000 2-3 Months 10,000-100,000 Wiring Mechanic ID - BSCBC with platelet count + automated [id number] 16:54:00 Test Item Value Reference Range Interpretation Comments WBC (test code = 6690-2) 5.4 See_Comment [A utomated message] The system [employer] generated this result transmitted ref erence range: 3.5 - 10 .5 K/L. The refe rence range was not u sed to interpret this result as normal/abnor mal. RBC (test code = 789-8) 4.80 See_Comment [Au tomated message] The system [employer] generated this result transmitted ref erence range: 3.93 - 5 .22 M/L. The refe rence range was not u sed to interpret this result as normal/abnor mal. MCHC (test code = 786-4) 29.6 See_Comment L [A utomated message] The system [employer] generated this result transmitted ref erence range: 32.2 - 3 5.5 GM/DL. The refe rence range was not u sed to interpret this result as normal/abnor mal. Hematocrit (test code = 35.8 % 34.1-44.9 4544-3) MCV (test code = 787-2) 74.6 fL 79.4-94.8 L MCH (test code = 785-6) 22.1 pg 25.6-32.2 L RDW (test code = 788-0) 15.5 % 11.7-14.4 H Platelets (test code = 320 See_Comment [Aut omated message] 777-3) The system [employer] generated this result transmitted ref erence range: 150 - 45 0 K/CU MM. The referen ce range was not u sed to interpret this result as normal/abnor mal. MPV (test code = 10.1 fL 9.4-12.3 57738-7) nRBC (test code = 413) 0 See_Comment [Aut omated message] The system [employer] generated this result transmitted ref erence range: 0 - 0 /1 00 WBC. The refere nce range was not u sed to interpret this result as normal/abnor mal. % Neutros (test code = 71 % 429) % Lymphs (test code = 13 % 430) % Monos (test code = 13 % 431) % Eos (test code = 432) 2 % % Baso (test code = 437) 0 % # Neutros (test code = 3.79 See_Comment [Aut omated message] 670) The system [employer] generated this result transmitted ref erence range: 1.56 - 6 .13 K/L. The refe rence range was not u sed to interpret this result as normal/abnor mal. # Lymphs (test code = 0.71 See_Comment L [Auto mated message] 414) The system [employer] generated this result transmitted ref erence range: 1.18 - 3 .74 K/L. The refe rence range was not u sed to interpret this result as normal/abnor mal. # Monos (test code = 0.69 See_Comment H [Autom ated message] 415) The system [employer] generated this result transmitted ref erence range: 0.24 - 0 .36 K/L. The refe rence range was not u sed to interpret this result as normal/abnor mal. # Eos (test code = 416) 0.12 See_Comment [Au tomated message] The system [employer] generated this result transmitted ref erence range: 0.04 - 0 .36 K/L. The refe rence range was not u sed to interpret this result as normal/abnor mal. # Baso (test code = 417) 0.02 See_Comment [A utomated message] The system [employer] generated this result transmitted ref erence range: 0.01 - 0 .08 K/L. The refe rence range was not u sed to interpret this result as normal/abnor mal. Immature 1 % 0-1 Granulocytes-Relative (test code = 2801) Lab Interpretation (test Abnormal code = 68932-0) [facility] W/PLT COUNT & AUTO [id number] 16:54:00 Test Item Value Reference Range Interpretation Comments WHITE BLOOD CELL COUNT (BEAKER) 5.4 K/ L 3.5-10.5 (test code = 775) RED BLOOD CELL COUNT (BEAKER) 4.80 M/ L 3.93-5.22 (test code = 761) HEMOGLOBIN (BEAKER) (test code = 10.6 GM/DL 11.2-15.7 L 410) HEMATOCRIT (BEAKER) (test code = 35.8 % 34.1-44.9 411) MEAN CORPUSCULAR VOLUME (BEAKER) 74.6 fL 79.4-94.8 L (test code = 753) MEAN CORPUSCULAR HEMOGLOBIN 22.1 pg 25.6-32.2 L (BEAKER) (test code = 751) MEAN CORPUSCULAR HEMOGLOBIN CONC 29.6 GM/DL 32.2-35.5 L (BEAKER) (test code = 752) RED CELL DISTRIBUTION WIDTH 15.5 % 11.7-14.4 H (BEAKER) (test code = [...] (test code = 437) NEUTROPHILS ABSOLUTE COUNT 3.79 K/ L 1.56-6.13 (BEAKER) (test code = 670) LYMPHOCYTES ABSOLUTE COUNT 0.71 K/ L 1.18-3.74 L (BEAKER) (test code = 414) MONOCYTES ABSOLUTE COUNT (BEAKER) 0.69 K/ L 0.24-0.36 H (test code = 415) EOSINOPHILS ABSOLUTE COUNT 0.12 K/ L 0.04-0.36 (BEAKER) (test code = 416) BASOPHILS ABSOLUTE COUNT (BEAKER) 0.02 K/ L 0.01-0.08 (test code = 417) IMMATURE GRANULOCYTES-RELATIVE 1 % 0-1 PERCENT (BEAKER) (test code = 2801) Urinalysis w/Microscopic + Reflex to [id number] 16:19:00 Test Item Value Reference Range Interpretation Comments Color, UA (test code Light Yellow = 5778-6) Clarity, UA (test Hazy code = 5767-9) Specific Knifley, UA 1.012 1.001-1.035 (test code = 5811-5) pH, UA (test code = 6.5 5.0-8.0 5803-2) Protein, UA (test 20 mg/dL Negative A code = 86366-5) Glucose, UA (test Negative Negative code = 365) Ketones, UA (test Negative Negative code = 2514-8) Bilirubin, UA (test Negative Negative code = 79402-3) Blood, UA (test code Moderate Negative A = 80966-4) Nitrite, UA (test Negative Negative code = 5802-4) Leukocytes, UA (test Large Negative A code = 5799-2) Urobilinogen, UA 0.2 mg/dL 0.2-1 (test code = 62247-3) RBC, UA (test code = 61 See_Comment [Autom ated 74591-6) message] The system which generated this result transmit ryanne reference range : /HPF. The reference range was not used to interpret this result as normal/abnormal . WBC, UA (test code = 81 See_Comment [Autom ated 5821-4) message] The system which generated this result transmit ryanne reference range : /HPF. The reference range was not used to interpret this result as normal/abnormal . Bacteria, UA (test None Seen code = 12316-0) Mucus (test code = Rare 8247-9) Squam Epithel, UA <1 See_Comment [Automate d (test code = 03830-8) messag e] The system which generated this result transmit ryanne reference range : /HPF. The reference range was not used to interpret this result as normal/abnormal . Crystals, Urine (test None Seen code = 35586-6) Specimen Source (test code = 2795) ELADIA (test code = ELADIA) Wiring Mechanic ID - [auto]Wiring Mechanic ID - tech Lab Interpretation Abnormal (test code = 77843-1) [facility] [id number] 16:19:00 Test Item Value Reference Range Interpretation Comments COLOR (BEAKER) (test code = 470) Light Yellow CLARITY (BEAKER) (test code = Hazy 469) SPECIFIC GRAVITY UA (BEAKER) 1.012 1.001-1.035 (test code = 468) PH UA (BEAKER) (test code = 467) 6.5 5.0-8.0 PROTEIN UA (BEAKER) (test code = 20 mg/dL Negative A 464) GLUCOSE UA (BEAKER) (test code = Negative Negative 365) KETONES UA (BEAKER) (test code = Negative Negative 371) BILIRUBIN UA (BEAKER) (test code Negative Negative = 462) BLOOD UA (BEAKER) (test code = Moderate Negative A 461) NITRITE UA (BEAKER) (test code = Negative Negative 465) LEUKOCYTE ESTERASE UA (BEAKER) Large Negative A (test code = 466) UROBILINOGEN UA (BEAKER) (test 0.2 mg/dL 0.2-1.0 code = 463) RBC UA (BEAKER) (test code = 61 /HPF 519) WBC UA (BEAKER) (test code = 81 /HPF 520) BACTERIA (BEAKER) (test code = None Seen 517) MUCUS (BEAKER) (test code = Rare 1574) SQUAMOUS EPITHELIAL (BEAKER) < /HPF (test code = 516) CRYSTALS, URINE (BEAKER) (test None Seen code = 1521) SOURCE(BEAKER) (test code = 2795) Wiring Mechanic ID - [auto]Wiring Mechanic ID - techComprehensive metabolic [id number] 16:18:00 Test Item Value Reference Range Interpretation Comments Protein, Total (test 8.5 See_Comment H Specime n code = 2885-2) moderately hemolyzed [Automated message] The system which generated this result transmit ryanne reference range : 6.0 - 8.3 gm/dL . The reference range was not u sed to interpret th is result as normal/abnormal . Albumin (test code = 3.4 g/dL 3.5-5 [place] [address]-4) moderately hemolyzed Alkaline Phosphatase 653 U/L 40-150 H (test code = 6768-6) Total Bilirubin (test 0.3 mg/dL 0.2-1.2 Specim en code = 1975-2) moderately hemolyzed Sodium (test code = 135 meq/L 136-145 L 2951-2) Potassium (test code 4.5 meq/L 3.5-5.1 Specime n = 2823-3) moderately hemolyzed Chloride (test code = 103 meq/L 98-107 5-0) CO2 (test code = 21 meq/L 22-29 L 8-9) BUN (test code = 27 mg/dL 7-21 H 3094-0) Creatinine (test code 1.89 mg/dL 0.57-1.25 H Specim en = 2160-0) moderately hemolyzed Glucose (test code = 136 mg/dL 70-105 H 2345-7) Calcium (test code = 12.7 mg/dL 8.4-10.2 H 23154-3) AST (test code = 28 U/L 5-34 Specimen 1920-8) moderately hemolyzed ALT (test code = 24 U/L 6-55 Specimen 1742-6) moderately hemolyzed EGFR (test code = 36 mL/min/1.73 [place] [address]-2) NOT ACCURATE CREATININE CLEARANCE IN PREDICTING GLOMERULAR FILTRATION RATE . ESTIMATED GFR I S NOT APPLICABLE FOR DIALYSIS PATIEN TS. ELADIA (test code = ELADIA) Wiring Mechanic ID - BS Lab Interpretation Abnormal (test code = 04164-0) [facility] [id number] 16:18:00 Test Item Value Reference Range Interpretation Comments TOTAL PROTEIN 8.5 gm/dL 6.0-8.3 H Specimen moder ately (BEAKER) (test code = hemoly zed 770) ALBUMIN (BEAKER) 3.4 g/dL 3.5-5.0 L Specimen mo derately (test code = 1145) hemolyzed ALKALINE PHOSPHATASE 653 U/L 40-150 H (BEAKER) (test code = 346) BILIRUBIN TOTAL 0.3 mg/dL 0.2-1.2 Specimen mod erately (BEAKER) (test code = hemoly zed 377) SODIUM (BEAKER) (test 135 meq/L 136-145 L code = 381) POTASSIUM (BEAKER) 4.5 meq/L 3.5-5.1 Specimen moderately (test code = 379) hemolyzed CHLORIDE (BEAKER) 103 meq/L 98-107 (test code = 382) CO2 (BEAKER) (test 21 meq/L 22-29 L code = 355) BLOOD UREA NITROGEN 27 mg/dL 7-21 H (BEAKER) (test code = 354) CREATININE (BEAKER) 1.89 mg/dL 0.57-1.25 H Specimen moderately (test code = 358) hemolyzed GLUCOSE RANDOM 136 mg/dL 70-105 H (BEAKER) (test code = 652) CALCIUM (BEAKER) 12.7 mg/dL 8.4-10.2 H (test code = 697) AST (SGOT) (BEAKER) 28 U/L 5-34 Specimen moderately (test code = 353) hemolyzed ALT (SGPT) (BEAKER) 24 U/L 6-55 Specimen moderately (test code = 347) hemolyzed EGFR (BEAKER) (test 36 mL/min/1.73 ESTIMA RYANNE GFR IS code = 1092) sq m NOT ACCURATE CREATININE CLEARANCE IN PREDICTING GLOMERULAR FILTRATION RATE . ESTIMATED GFR I S NOT APPLICABLE FOR DIALYSIS PATIEN TS. Wiring Mechanic ID - BSCT, [id number] 10:46:00Referring; DENISE AYOUB MDUnlisted Reason for Exam - Click Yes and Enter Reason Below->NoWill this procedure require oral contrast?->No [facility] : 1980 Sex: FFINAL REPORT EXAM: CT abdomen and pelvis CLINICAL HISTORY: Flank pain COMPARISON: November 12, 2020 DOSE REDUCTION: The exams was performed according to the departmental dose-optimization program which includes automated exposure control, adjustment of the mA and/or kV according to patient size and/or use of iterative reconstruction technique. TECHNIQUE: Helical images of the abdomen and pelvis were obtained without contrast FINDINGS: Mild right basilar atelectasis versus scarring is noted. Hepatosplenomegaly and splenic varices again noted consistent with history of portal hypertension. Cholelithiasis is seen without CT evidence of acute cholecystitis. Multiple calcifiedstones are again noted in bilateral renal pelvis without evidence of hydronephrosis or hydroureter. There is interval removal of the bilateral internal ureteral stents. The small and large bowels are normal in caliber without evidence of obstruction. Hyperdense material is seen in the colon which may represent contrast from prior procedure. The bladder, uterus, and ovaries are within normal limits. There is no evidence of lymphadenopathy or free fluid. The aorta and IVC are normal in caliber. IMPRESSION: 1. Bilateral nephrolithiasis without evidence of acute obstruction. 2. Interval removal of bilateral internal ureteral stents. 3. Cholelithiasis without CT evidence of acute cholecystitis. 4. Persistent hepatopedal splenomegaly with splenic varices consistent with portal hypertension. Signed: Chito Mccormack MDReport Verified Date/Time: 01/11/2021 10:46:14 Reading Location: [facility] Radiology Reading Room MR, ABDOMEN, [id number] 14:57:00Referring; DENISE AYOUB MDUnlisted Reason for Exam - Click Yes and Enter Reason Below->NoLocation: For [place] Only->please perform elastography and iron quantification as well. [facility]ANES : 1980 Sex: FFINAL REPORT TECHNIQUE: MR, ABDOMEN, WITH \\T\\ WITHOUT CONTRAST, inclu ding elastography and fat fraction quantification. HISTORY: Liver disease, chronic, fibrosis suspected COMPARISON: Multiple abdomen pelvis CTs, most recent 11/12/2020. FINDINGS: Hepatobiliary Findings:Contour and signal intensity and size: Measures 21.6 cm in craniocaudal dimension midclavicular line.Slightly nodular contour and heterogeneous parenchyma.Lesions: No focal lesions. Multiple wedge-shaped mildly arterially hyperenhancing peripheral areas without washout likely related to perfusion/shunts.Portal vein: Patent and measures 1.6 cm in diameter.Arterial anatomy: ConventionalGallbladder and bile ducts: Multiple stones. No wall thickening or adjacent inflammatory changes. No biliary duct dilation.Spleen: Measures 19.5 cm in craniocaudal dimension. No focal masses.Varices: Small lower paraesophageal and perisplenic varices.Ascites: None. Liver Stiffness and Iron/Fat Quantification: Liver stiffness: 3.2 kPa + / - 1.6 kPaLiver fat fraction: 2.1%Liver T2*: 24.6 ms = 1.23 mg/g liver iron concentration (normal range 0.17-1.8 mg/g) Additional Findings:Lung bases: Unremarkable. Pancreas: No focal masses or ductal dilation.Adrenals: No nodules.Kidneys and ureters: No focal solid masses. No hydronephrosis. Bilateral subcentimeter renal cysts. Blooming artifact in the renal collecting systems likely related to indwelling nephroureteral stents and stones which are very characterized on recent prior CT.Bowel: No wall thickening or abnormal dilatation. Lymph nodes: No new lymphadenopathy. Unchanged mildly enlarged retroperitoneal lymph nodes, up to 13 mm short axis in the left periaortic station.Peritoneum: No free air or fluid.Vessels: As above.Abdominal wall: Unremarkable.Bones: No acute findings or focal suspicious osseous lesions. IMPRESSION: 1. Sequela of cirrhosis and portal hypertensionwith hepatosplenomegaly and lower paraesophageal and perisplenic varices. No focal hepatic masses. 2. Liver stiffness measures 3.2 kPa-stage 1-2 fibrosis. Normal liver fat and iron quantitation. 3. Stable mild retroperitoneal lymphadenopathy compared with CT 11/12/2020. Reference: *Stiffness threshold correlation to fibrosis based on meta-analysis by Patel, MRI Clin N Am 2013Normal: <2.5 kPaNormal or Inflammation: 2.5 - 2.9 kPaStage 1 to 2 Fibrosis: 2.9 - 3.5 kPaStage 2 to 3 Fibrosis: 3.5 - 4 kPaStage 3 to 4 Fibrosis: 4.0 - 5.0 kPaStage 4 Fibrosis or Cirrhosis: > 5 kPa *Hepatic Fat Fraction ThresholdsPDFF 0 - 5%, Normal (Histological grade 0)PDFF 6-15%, Mild steatosis (Histological grade 1)PDFF 16-22%, Moderate steatosis (Histological grade 2)PDFF > 22%, Severe steatosis (Histological grade 3) Abdom Radiol 2020;45(3):661-671. Signed: Duke Tadeo MDReport Verified Date/Time: 01/02/2021 14:57:48 Reading Location: [address] Transitional Reading Room MR abdomen with/without IV [id number] 14:57:00 Interface, External Ris In - 01/02/2021 2:59 PM CDTFINAL REPORT TECHNIQUE: MR, ABDOMEN, WITH \\T\\ WITHOUT CONTRAST, including elastography and fat fraction quantification. HISTORY: Liver disease, chronic, fibrosis suspected COMPARISON: Multiple abdomen pelvis CTs, most recent . FINDINGS: Hepatobiliary Findings:Contour and signal intensity and size: Measures 21.6 cm in craniocaudal dimension midclavicular line. Slightly nodular contour and heterogeneous parenchyma.Lesions: No focal lesions. Multiple wedge-shaped mildly arterially hyperenhancing peripheral areas without washout likely related to perfusion/shunts.Portal vein: Patent and measures 1.6 cm in diameter.Arterial anatomy: ConventionalGallbladder and bile ducts: Multiple stones. No wall thickening or adjacent inflammatory changes. No biliary duct dilation.Spleen: Measures 19.5 cm in craniocaudal dimension.No focal masses.Varices: Small lower paraesophageal and perisplenic varices.Ascites: None. Liver Stiffness and Iron/Fat Quantification: Liver stiffness: 3.2 kPa + / - 1.6 kPaLiver fat fraction: 2.1%Liver T2*: 24.6 ms = 1.23 mg/g liver iron concentration (normal range 0.17-1.8 mg/g) Additional Findings:Lung bases: Unremarkable. Pancreas: No focal masses or ductal dilation.Adrenals: No nodules.Kidneys and ureters: No focal solid masses. No hydronephrosis. Bilateral subcentimeter renal cysts. Blooming artifact in the renal collecting systems likely related to indwelling nephroureteral stents and stones which are very characterized on recent prior CT.Bowel: No wall thickening or abnormal dilatation. Lymph nodes: No new lymphadenopathy. Unchanged mildly enlarged retroperitoneal lymph nodes, up to 13 mm short axis in the left periaortic station.Peritoneum: No free air or fluid.Vessels: As above.Abdominal wall: Unremarkable.Bones: No acute findings or focal suspicious osseous lesions. IMPRESSION: 1. Sequela of cirrhosis and portal hypertension with hepatosplenomegaly and lower paraesophageal and perisplenic varices. No focal hepatic masses. 2. Liver stiffness measures 3.2 kPa-stage 1-2 fibrosis. Normal liver fat and iron quantitation. 3. Stable mild retroperitoneal lymphadenopathy compared with CT 11/12/2020. Reference: *Stiffness threshold correlation to fibrosis based on meta-analysis by Patel, MRI Clin N Am 2013Normal: <2.5 kPaNormal or Inflammation: 2.5 - 2.9 kPaStage 1 to 2 Fibrosis: 2.9 - 3.5 kPaStage 2 to 3 Fibrosis: 3.5 - 4 kPaStage 3 to 4 Fibrosis: 4.0 - 5.0 kPaStage 4 Fibrosis or Cirrhosis: > 5 kPa *Hepatic Fat Fraction ThresholdsPDFF 0 - 5%, Normal (Histological grade 0)PDFF 6-15%, Mild steatosis (Histological grade 1)PDFF 16-22%, Moderate steatosis (Histological grade 2)PDFF > 22%, Severe steatosis (Histological grade 3) Abdom Radiol 2020;45(3):661-671. Signed: Duke Tadeo MDReport Verified Date/Time: 01/02/2021 14:57:48 Reading Location: [address] Transitional Reading [facility] [id number] 09:24:00 Test Item Value Reference Range Interpretation Comments SPECIMEN RIGHT URETERAL SOURCE(QUEST) (test code = 9302129) COMPONENT 1 See Below Calcium Oxalate (QUEST) (test Dihydrate code = 4917578) (Weddellite) 10% Calcium Oxalate Monohydrate (Whewellite) 45 % Carbonate Apati te (Dahllite) 45% This test was developed and i ts analytical performance characteristics have been determined by [employer]. It has not been cl eared or approved by theA. This as say has been valida ryanne pursuant to the CLIA regulations and is used for clinic al purposes. COMPONENT 2 DNR (QUEST) (test code = 2498) Stone Weight 0.024 g (test code = 2654) ELADIA (test code = Performing Lab ELADIA) *NELLY [employer] [facility], [address] [place] [id number] Sid Gagnon MD [facility] HospitalMitochondrial Antibodies, [id number] 18:18:00 Test Item Value Reference Range Interpretation Comments Mitochondria M2 Ab <20.0 See Note: U Reference (test code = Range:NEGATIVE: ) < OR = 20.0EQUIVOCAL: 20.1-24.9POSITI V E: > OR = 25.0 ELADIA (test code = Performing Lab ELADIA) [employer] [place] [id number] [place] [address] Tati Wallace MD, PhD, KATHRYN [facility] HospitalActin (Smooth Muscle) Antibody, [id number] 23:43:00 Test Item Value Reference Range Interpretation Comments Anti-Smooth <20 See Note: U Reference Range :<20 Muscle Ab NEGATIVE> O R = 20 (test code = POSITIVE Antibo dies 1229852) recognizing act in are the main compon entof smooth muscle antibodies asso ciated withautoimmune liver disease. Actin antibodies aref ound in approximatel y 75% of patients withautoimmune hepatitis (AIH) type 1, approximatel y65% of patients wit h autoimmune cholangitis,mihir roxima tely 30% of pat ients with primary biliarycirrhosi s, and approximately 2 % of healthy people. High values are clos nedra correlated with AIH type 1. ELADIA (test code Performing Lab = ELADIA) [employer] [place] [address] [place] [address] Tati Wallace MD, PhD, KATHRYN [facility] HospitalCeruloplasmin2021-05-28 15:52:00 Test Item Value Reference Range Interpretation Comments Ceruloplasmin (test code 44 mg/dL 18-53 = 20190905) ELADIA (test code = ELADIA) Performing Lab *NELLY [employer] [facility], [address] [place] [address] Sid Gagnon MD [facility] HospitalAFB culture + smear (non-sputum)2020-12-09 15:22:00 Test Item Value Reference Range Interpretation Comments Result (test code = No acid-fast bacilli to 6463-4) date; additional report will follow if positive. AFB Smear (test code No acid fast bacilli = 24610-6) seen [facility] HospitalAFB CULTURE + SMEAR (NON-SPUTUM)2020-12-09 15:22:00 Test Item Value Reference Range Interpretation Comments CULTURE (BEAKER) No acid-fast bacilli to (test code = 1095) date; additional report will follow if positive. AFB SMEAR (BEAKER) No acid fast bacilli (test code = 994) seen FL, FLUORO, NON-SPECIFIC, UP TO 1 [id number] 15:02:15Referring; DENISE AYOUB MDReason for exam:->[employer] [facility]: ERROL MAGALLANES : 1980 Sex: FFluoroscopic unit utilized for a procedure performed in the OR. No interpretation was requested. Refer to the operative report for findings. Refer to PACS for patient radiation dose information.FL fluoro non-specific up to 1 [id number] 13:25:00 Interface, External Ris In 12/09/2020 3:02 PM CDTFluoroscopic unit utilized for a procedure performed in the OR. No interpretation was requested. Refer to the operative report for findings. Referto PACS for patient radiation dose information.[facility] HospitalPOCT , [id number] 08:05:00 Test Item Value Reference Range Interpretation Comments Test Urine, POC (test Negative code = 6316468) Control line present?, POC (test Yes code = 2943308) Background clear?, POC (test code Yes = 1278279) UPT Cassette Lot #, POC (test code 26449 = 0789613) UPT Cassette Expiration Date, POC 02-11-2022 (test code = 3846173) [facility] HospitalAnti-Nuclear Antibody (ROVERTO)2020-12-07 10:02:00 Test Item Value Reference Range Interpretation Comments ROVERTO (test code = 31933-2) Negative Negative ELADIA (test code = ELADIA) Test performed by IFA method.Test performed by IFA method. Lab Interpretation (test Normal code = 52412-5) [facility] HospitalANTI-NUCLEAR ANTIBODY (ROVERTO)2020-12-07 10:02:00 Test Item Value Reference Range Interpretation Comments ANTI-NUCLEAR ANTIBODY (ROVERTO) (BEAKER) Negative Negative (test code = 418) Test performed by IFA method.Test performed by IFA method.Hepatitis B core antibody, [id number] 08:30:00 Test Item Value Reference Range Interpretation Comments Hep B Core Total Ab Nonreactive Nonreactive TEST PER FORMED IN (test code = 53279-8) [facility] Lab Interpretation (test Normal code = 09295-6) [facility] HospitalHEPATITIS B CORE ANTIBODY, [id number] 08:30:00 Test Item Value Reference Range Interpretation Comments HEPATITIS B CORE Nonreactive Nonreactive TEST PERFOR MED IN TOTAL ANTIBODY [place] CHILDRE N (BEAKER) (test code = HOSPIT [place] 497) Hepatitis B surface [id number] 18:23:00 Test Item Value Reference Range Interpretation Comments Hep B S Ab (test code <8.0 See_Comment [Auto mated = 13305-8) message] The system which generated this result transmit ryanne reference range : <8.0 mIU/mL. e reference range was not used to interpret this result as normal/abnormal . ELADIA (test code = ELADIA) Wiring Mechanic ID - BS Lab Interpretation Normal (test code = 73509-4) [facility] HospitalHEPATITIS B SURFACE [id number] 18:23:00 Test Item Value Reference Range Interpretation Comments HEPATITIS B SURFACE ANTIBODY < mIU/mL <8.0 (BEAKER) (test code = 647) Wiring Mechanic ID - BSHepatitis B surface [id number] 18:21:00 Test Item Value Reference Range Interpretation Comments HBsAg Screen (test code Nonreactive Nonreactive = 5195-3) ELADIA (test code = ELADIA) Specimen is considered negative for HBsAg. Lab Interpretation (test Normal code = 95117-2) [facility] HospitalHepatitis C [id number] 18:21:00 Test Item Value Reference Range Interpretation Comments Hepatitis C Ab (test code = Nonreactive Nonreactive 56773-6) ELADIA (test code = ELADIA) Wiring Mechanic ID - BS Lab Interpretation (test Normal code = 63812-0) [facility] antibody, [id number] 18:21:00 Test Item Value Reference Range Interpretation Comments Hep A IgG (test code = Nonreactive Nonreactive 52960-7) ELADIA (test code = ELADIA) Wiring Mechanic ID - BS Lab Interpretation (test Normal code = 35951-2) [facility] SURFACE [id number] 18:21:00 Test Item Value Reference Range Interpretation Comments HEPATITIS B SURFACE ANTIGEN (2) Nonreactive Nonreactive (BEAKER) (test code = 2585) Specimen is considered negative for HBsAg.HEPATITIS C [id number] 18:21:00 Test Item Value Reference Range Interpretation Comments HEPATITIS C ANTIBODY (BEAKER) Nonreactive Nonreactive (test code = 367) Wiring Mechanic ID - BSHEPATITIS A ANTIBODY, [id number] 18:21:00 Test Item Value Reference Range Interpretation Comments HEPATITIS A IGG ANTIBODY (BEAKER) Nonreactive Nonreactive (test code = 2797) Wiring Mechanic ID - BSAlpha fetoprotein (AFP), tumor [id number] 17:57:00 Test Item Value Reference Range Interpretation Comments Alpha-Fetoprotein (test code 2.1 ng/mL <10.0 = 1834-1) ELADIA (test code = ELADIA) Wiring Mechanic ID - BS Lab Interpretation (test Normal code = 22938-3) [facility] HospitalHepatitis A antibody, [id number] 17:57:00 Test Item Value Reference Range Interpretation Comments Hep A IgM (test code = Nonreactive Nonreactive 99561-6) ELADIA (test code = ELADIA) Wiring Mechanic ID - BS Lab Interpretation (test Normal code = 88129-9) [facility] HospitalALPHA FETOPROTEIN (AFP), TUMOR [id number] 17:57:00 Test Item Value Reference Range Interpretation Comments ALPHA-FETOPROTEIN (BEAKER) (test 2.1 ng/mL <10.0 code = 1094) Wiring Mechanic ID - BSHEPATITIS A ANTIBODY, [id number] 17:57:00 Test Item Value Reference Range Interpretation Comments HEPATITIS A IGM ANTIBODY (BEAKER) Nonreactive Nonreactive (test code = 498) Wiring Mechanic ID - BSHEPATITIS A ANTIBODY, [id number] 17:57:00 Test Item Value Reference Range Interpretation Comments HEPATITIS A IGG ANTIBODY (BEAKER) Nonreactive Nonreactive (test code = 2797) Wiring Mechanic ID - BSIRON, TIBC, % SAT. (WITHOUT FERRITIN)2020-12-06 17:38:00 Test Item Value Reference Range Interpretation Comments IRON (BEAKER) (test code = 547) 113.0 ug/dL 40.0-160.0 TOTAL IRON BINDING CAPACITY 433 ug/dL 250-450 (BEAKER) (test code = 769) IRON % SATURATION (2) (BEAKER) 26 % 20-55 (test code = 2590) Wiring Mechanic ID - OPYhqsy-5-[id number] 16:52:00 Test Item Value Reference Range Interpretation Comments A-1 Antitrypsin (test code = 220.80 mg/dL 90-200 H 1825-9) ELADIA (test code = ELADIA) Wiring Mechanic ID - BS Lab Interpretation (test Abnormal code = 00185-2) [facility] HospitalALPHA-1-[id number] 16:52:00 Test Item Value Reference Range Interpretation Comments ALPHA-1 ANTITRYPSIN (BEAKER) 220.80 mg/dL 90.00-200.00 H (test code = 502) Wiring Mechanic ID - [id number] 15:38:00 Test Item Value Reference Range Interpretation Comments FERRITIN (BEAKER) (test code = 73.14 ng/mL 5.00-275.00 361) Wiring Mechanic ID - BSBilirubin, [id number] 15:12:00 Test Item Value Reference Range Interpretation Comments Bilirubin, Direct (test 0.3 mg/dL 0.1-0.5 code = 1968-7) ELADIA (test code = ELADIA) Wiring Mechanic ID - JAYY C Lab Interpretation (test Normal code = 22521-0) [facility] [id number] 15:12:00 Test Item Value Reference Range Interpretation Comments TOTAL PROTEIN 7.8 gm/dL 6.0-8.3 (BEAKER) (test code = 770) ALBUMIN (BEAKER) 3.6 g/dL 3.5-5.0 (test code = 1145) ALKALINE PHOSPHATASE 707 U/L 40-150 H (BEAKER) (test code = 346) BILIRUBIN TOTAL 0.4 mg/dL 0.2-1.2 (BEAKER) (test code = 377) SODIUM (BEAKER) (test 140 meq/L 136-145 code = 381) POTASSIUM (BEAKER) 4.6 meq/L 3.5-5.1 (test code = 379) CHLORIDE (BEAKER) 109 meq/L 98-107 H (test code = 382) CO2 (BEAKER) (test 25 meq/L 22-29 code = 355) BLOOD UREA NITROGEN 19 mg/dL 7-21 (BEAKER) (test code = 354) CREATININE (BEAKER) 0.90 mg/dL 0.57-1.25 (test code = 358) GLUCOSE RANDOM 82 mg/dL 70-105 (BEAKER) (test code = 652) CALCIUM (BEAKER) 9.8 mg/dL 8.4-10.2 (test code = 697) AST (SGOT) (BEAKER) 88 U/L 5-34 H (test code = 353) ALT (SGPT) (BEAKER) 159 U/L 6-55 H (test code = 347) EGFR (BEAKER) (test 84 mL/min/1.73 ESTIMA RYANNE GFR IS code = 1092) sq m NOT ACCURATE CREATININE CLEARANCE IN PREDICTING GLOMERULAR FILTRATION RATE . ESTIMATED GFR I S NOT APPLICABLE FOR DIALYSIS PATIEN TS. Wiring Mechanic ID - JAYY CBILIRUBIN, [id number] 15:12:00 Test Item Value Reference Range Interpretation Comments BILIRUBIN DIRECT (BEAKER) (test 0.3 mg/dL 0.1-0.5 code = 706) Wiring Mechanic ID - JAYY CCBC W/PLT COUNT & AUTO [id number] 15:03:00 Test Item Value Reference Range Interpretation Comments WHITE BLOOD CELL COUNT (BEAKER) 5.8 K/ L 3.5-10.5 (test code = 775) RED BLOOD CELL COUNT (BEAKER) 4.29 M/ L 3.93-5.22 (test code = 761) HEMOGLOBIN (BEAKER) (test code = 9.7 GM/DL 11.2-15.7 L 410) HEMATOCRIT (BEAKER) (test code = 32.3 % 34.1-44.9 L 411) MEAN CORPUSCULAR VOLUME (BEAKER) 75.3 fL 79.4-94.8 L (test code = 753) MEAN CORPUSCULAR HEMOGLOBIN 22.6 pg 25.6-32.2 L (BEAKER) (test code = 751) MEAN CORPUSCULAR HEMOGLOBIN CONC 30.0 GM/DL 32.2-35.5 L (BEAKER) (test code = 752) RED CELL DISTRIBUTION WIDTH 17.9 % 11.7-14.4 H (BEAKER) (test code = 412) PLATELET COUNT (BEAKER) (test 337 K/CU MM 150-450 code = 756) MEAN PLATELET VOLUME (BEAKER) 10.8 fL 9.4-12.3 (test code = 754) NUCLEATED RED BLOOD CELLS 0 /100 WBC 0-0 (BEAKER) (test code = 413) NEUTROPHILS RELATIVE PERCENT 75 % (BEAKER) (test code = 429) LYMPHOCYTES RELATIVE PERCENT 13 % (BEAKER) (test code = 430) MONOCYTES RELATIVE PERCENT 8 % (BEAKER) (test code = 431) EOSINOPHILS RELATIVE PERCENT 3 % (BEAKER) (test code = 432) BASOPHILS RELATIVE PERCENT 0 % (BEAKER) (test code = 437) NEUTROPHILS ABSOLUTE COUNT 4.34 K/ L 1.56-6.13 (BEAKER) (test code = 670) LYMPHOCYTES ABSOLUTE COUNT 0.76 K/ L 1.18-3.74 L (BEAKER) (test code = 414) MONOCYTES ABSOLUTE COUNT (BEAKER) 0.45 K/ L 0.24-0.36 H (test code = 415) EOSINOPHILS ABSOLUTE COUNT 0.18 K/ L 0.04-0.36 (BEAKER) (test code = 416) BASOPHILS ABSOLUTE COUNT (BEAKER) 0.02 K/ L 0.01-0.08 (test code = 417) IMMATURE GRANULOCYTES-RELATIVE 1 % 0-1 PERCENT (BEAKER) (test code = 2801) PROTHROMBIN TIME/[id number] 15:01:00 Test Item Value Reference Range Interpretation Comments PROTIME (BEAKER) 12.7 seconds 11.9-14.2 (test code = 759) INR (BEAKER) (test 0.98 See_Comment [Automat ed message] code = 370) The system Pollfish generated this result transmitted ref erence range: <=5.90. The reference range was not used to int erpret this result as normal/abnormal . RECOMMENDED COUMADIN/WARFARIN INR THERAPY RANGESSTANDARD DOSE: 2.0 - 3.0 Includes: PROPHYLAXIS forvenous thrombosis, systemic embolization; TREATMENT for venous thrombosis and/or pulmonary embolus.HIGH RISK: Target INR is 2.5-3.5 for patients with mechanical heart valves.CBC W/PLT COUNT & AUTO DIFFERENTIAL 2020-11-26 16:35:00 Test Item Value Reference Range Interpretation Comments WHITE BLOOD CELL COUNT (BEAKER) 6.0 K/ L 3.5-10.5 (test code = 775) RED BLOOD CELL COUNT (BEAKER) 3.64 M/ L 3.93-5.22 L (test code = 761) HEMOGLOBIN (BEAKER) (test code = 8.1 GM/DL 11.2-15.7 L 410) HEMATOCRIT (BEAKER) (test code = 26.9 % 34.1-44.9 L 411) MEAN CORPUSCULAR VOLUME (BEAKER) 73.9 fL 79.4-94.8 L (test code = 753) MEAN CORPUSCULAR HEMOGLOBIN 22.3 pg 25.6-32.2 L (BEAKER) (test code = 751) MEAN CORPUSCULAR HEMOGLOBIN CONC 30.1 GM/DL 32.2-35.5 L (BEAKER) (test code = 752) RED CELL DISTRIBUTION WIDTH 16.1 % 11.7-14.4 H (BEAKER) (test code = 412) PLATELET COUNT (BEAKER) (test 279 K/CU MM 150-450 code = 756) MEAN PLATELET VOLUME (BEAKER) 10.9 fL 9.4-12.3 (test code = 754) NUCLEATED RED BLOOD CELLS 0 /100 WBC 0-0 (BEAKER) (test code = 413) NEUTROPHILS RELATIVE PERCENT 77 % (BEAKER) (test code = 429) LYMPHOCYTES RELATIVE PERCENT 11 % (BEAKER) (test code = 430) MONOCYTES RELATIVE PERCENT 10 % (BEAKER) (test code = 431) EOSINOPHILS RELATIVE PERCENT 2 % (BEAKER) (test code = 432) BASOPHILS RELATIVE PERCENT 0 % (BEAKER) (test code = 437) NEUTROPHILS ABSOLUTE COUNT 4.62 K/ L 1.56-6.13 (BEAKER) (test code = 670) LYMPHOCYTES ABSOLUTE COUNT 0.68 K/ L 1.18-3.74 L (BEAKER) (test code = 414) MONOCYTES ABSOLUTE COUNT (BEAKER) 0.58 K/ L 0.24-0.36 H (test code = 415) EOSINOPHILS ABSOLUTE COUNT 0.11 K/ L 0.04-0.36 (BEAKER) (test code = 416) BASOPHILS ABSOLUTE COUNT (BEAKER) 0.01 K/ L 0.01-0.08 (test code = 417) IMMATURE GRANULOCYTES-RELATIVE 1 % 0-1 PERCENT (BEAKER) (test code = 2801) CBC W/PLT COUNT & AUTO [id number] 11:38:00 Test Item Value Reference Range Interpretation Comments WHITE BLOOD CELL COUNT (BEAKER) 6.0 K/ L 3.5-10.5 (test code = 775) RED BLOOD CELL COUNT (BEAKER) 3.32 M/ L 3.93-5.22 L (test code = 761) HEMOGLOBIN (BEAKER) (test code = 7.3 GM/DL 11.2-15.7 L 410) HEMATOCRIT (BEAKER) (test code = 24.6 % 34.1-44.9 L 411) MEAN CORPUSCULAR VOLUME (BEAKER) 74.1 fL 79.4-94.8 L (test code = 753) MEAN CORPUSCULAR HEMOGLOBIN 22.0 pg 25.6-32.2 L (BEAKER) (test code = 751) MEAN CORPUSCULAR HEMOGLOBIN CONC 29.7 GM/DL 32.2-35.5 L (BEAKER) (test code = 752) RED CELL DISTRIBUTION WIDTH 16.1 % 11.7-14.4 H (BEAKER) (test code = 412) PLATELET COUNT (BEAKER) (test 229 K/CU MM 150-450 code = 756) MEAN PLATELET VOLUME (BEAKER) 10.2 fL 9.4-12.3 (test code = 754) NUCLEATED RED BLOOD CELLS 0 /100 WBC 0-0 (BEAKER) (test code = 413) NEUTROPHILS RELATIVE PERCENT 67 % (BEAKER) (test code = 429) LYMPHOCYTES RELATIVE PERCENT 15 % (BEAKER) (test code = 430) MONOCYTES RELATIVE PERCENT 15 % (BEAKER) (test code = 431) EOSINOPHILS RELATIVE PERCENT 3 % (BEAKER) (test code = 432) BASOPHILS RELATIVE PERCENT 0 % (BEAKER) (test code = 437) NEUTROPHILS ABSOLUTE COUNT 4.04 K/ L 1.56-6.13 (BEAKER) (test code = 670) LYMPHOCYTES ABSOLUTE COUNT 0.93 K/ L 1.18-3.74 L (BEAKER) (test code = 414) MONOCYTES ABSOLUTE COUNT (BEAKER) 0.87 K/ L 0.24-0.36 H (test code = 415) EOSINOPHILS ABSOLUTE COUNT 0.15 K/ L 0.04-0.36 (BEAKER) (test code = 416) BASOPHILS ABSOLUTE COUNT (BEAKER) 0.01 K/ L 0.01-0.08 (test code = 417) IMMATURE GRANULOCYTES-RELATIVE 0 % 0-1 PERCENT (BEAKER) (test code = 2801) BASIC METABOLIC [id number] 04:10:00 Test Item Value Reference Range Interpretation Comments SODIUM (BEAKER) 137 meq/L 136-145 (test code = 381) POTASSIUM (BEAKER) 4.3 meq/L 3.5-5.1 (test code = 379) CHLORIDE (BEAKER) 108 meq/L 98-107 H (test code = 382) CO2 (BEAKER) (test 21 meq/L 22-29 L code = 355) BLOOD UREA NITROGEN 24 mg/dL 7-21 H (BEAKER) (test code = 354) CREATININE (BEAKER) 0.84 mg/dL 0.57-1.25 (test code = 358) GLUCOSE RANDOM 87 mg/dL 70-105 (BEAKER) (test code = 652) CALCIUM (BEAKER) 8.4 mg/dL 8.4-10.2 (test code = 697) EGFR (BEAKER) (test 91 mL/min/1.73 ESTIMA RYANNE GFR IS code = 1092) sq m NOT ACCURATE CREATININE CLEARANCE IN PREDICTING GLOMERULAR FILTRATION RATE . ESTIMATED GFR I S NOT APPLICABLE FOR DIALYSIS PATIEN TS. Wiring Mechanic ID - EDASIHemoglobin and [id number] 03:58:00 Test Item Value Reference Range Interpretation Comments Hemoglobin (test code 8.2 See_Comment L [Auto mated = 786-4) message] The system which generated this result transmit ryanne reference range : 11.2 - 15.7 GM/ DL. The reference range was not u sed to interpret th is result as normal/abnormal . Hematocrit (test code 27.0 % 34.1-44.9 L = 4544-3) ELADIA (test code = ELADIA) Wiring Mechanic ID - [id number] Lab Interpretation Abnormal (test code = 16614-4) [facility]HEMOGLOBIN AND [id number] 03:58:00 Test Item Value Reference Range Interpretation Comments HEMOGLOBIN (BEAKER) (test code = 8.2 GM/DL 11.2-15.7 L 410) HEMATOCRIT (BEAKER) (test code = 27.0 % 34.1-44.9 L 411) Wiring Mechanic ID - [id number] 18:36:37Reason for exam:->bilateral ureteroscopy, bilateral stent placement [facility] : 1980 Sex: FFluoroscopic unit utilized for a procedure performed in the OR. No interpretation was requested. Refer to the operative report for findings. Refer to PACS for patient radiation dose information.Fungus culture + [id number] 00:53:00 Test Item Value Reference Range Interpretation Comments Result (test code = No fungus isolated in 6463-4) 28 days Fungus Smear (test No fungi seen code = 1406) [facility] + [id number] 00:53:00 Test Item Value Reference Range Interpretation Comments CULTURE (BEAKER) (test No fungus isolated in code = 1095) 28 days FUNGUS SMEAR (BEAKER) No fungi seen (test code = 1406) ANG, TUNNELED CATHETER [id number] 16:02:00Reason for Central Line/PICC?->PICC Home infusion duration of therapy > 21 daysReason for exam:->patient failed PICC line placement, needs IV abx for home till 12/01 [facility] MAG[facility]AN[facility] : 1980 Sex: FFINAL REPORT PROCEDURE: Tunneled central venous catheter placement Pr ocedural PersonnelAttending physician(s): Dylon Key physician(s): NoneResident physician(s): NoneAdvanced practice provider(s): None Pre-procedure diagnosis: PyelonephritisPost-procedure diagnosis: SameIndication: Intravenous medication administrationAdditional clinical history: None Complications: No immediate complications. IMPRESSION: Insertion of right-sided dual-lumen tunneled power injectable central venous catheter, with tip in the expected location of the cavoatrial junction. Plan: The catheter may be used immediately. PROCEDURE SUMMARY:- Venous access with ultrasound guidance- Tunneled central venous catheter insertion with fluoroscopic guidance- Additional procedure(s): None PROCEDURE DETAILS: Pre-procedureConsent: Informed consent for the procedure including risks, benefits and alternatives was obtained and time-out was performed prior to the procedure.Preparation (MIPS): The site was prepared and draped usingall elements of maximal sterile barrier technique including sterile gloves, sterile gown, cap, mask,large sterile sheet, sterile ultrasound probe cover, hand hygiene and cutaneous antisepsis with 2% chlorhexidine. Medical reason for site preparation exception (MIPS): Not applicable Anesthesia/sedation Level of anesthesia/sedation: No sedation, 50mcg fentanyl for pain.Anesthesia/sedation administered by: Independent trained observer under attending supervision with continuous monitoring of the patient\\X2019\\s level of consciousness and physiologic statusTotal intra-service sedation time (minutes): NA AccessLocal anesthesia was administered. The vessel was sonographically evaluated and determined lupe patent. Real time ultrasound was used to visualize needle entry into the vessel and a permanent image was stored.Vein accessed: Internal jugular veinAccess technique: Micropuncture set with 21 gaugeneedle Catheter placementAn incision was made near the venous access site and the catheter was tunneled subcutaneously to the venous access site and trimmed to appropriate length. The catheter was advanced via a peel-away sheath into the vein under fluoroscopic guidance. Catheter tip location was fluoroscopically verified and a permanent image was stored.Catheter placed: BardCatheter size (Lao): 6Catheter flush: Normal saline ClosureA sterile dressing was applied.Access site closure technique: Tissue adhesiveCatheter securement technique: Non-absorbable suture ContrastContrast agent: NoneContrast volume (mL): 0 Radiation DoseFluoroscopy time (minutes): 0.3 Reference air kerma (mGy): 1.8 Additional DetailsAdditional description of procedure: NoneEquipment details: NoneSpecimens removed: NoneEstimated blood loss (mL): Less than 10Standardized report: [email or web address]_v3 AttestationSigner name: Carl Pinto attest that I was present for the entire procedure. I reviewed the stored images and agree with the report as written. Signed: Carl Handy MDReport Verified Date/Time: 11/14/2020 16:02:10 Reading Location: [place] [address] Angio Body Reading Room IR Tunneled Catheter [id number] 16:02:00Interface, External Ris In - 11/14/2020 4:04 PM CDTFINAL REPORT PROCEDURE: Tu nneled central venous catheter placement Procedural PersonnelAttending physician(s): Carl Handy MDWe[facility] physician(s): NoneResident physician(s): NoneAdvanced practice provider(s): None Pre-procedurediagnosis: PyelonephritisPost-procedure diagnosis: SameIndication: Intravenous medication administrationAdditional clinical history: None Complications: No immediate complications. IMPRESSION: Insertion of right-sided dual-lumen tunneled power injectable central venous catheter, with tip in the expected location of the cavoatrial junction. Plan: The catheter may be used immediately. PROCEDURE SUMMARY:- Venous access with ultrasound guidance- Tunneled central venous catheter insertion with fluoroscopic guidance- Additional procedure(s): None PROCEDURE DETAILS: Pre-procedureConsent: Informed consent for the procedure including risks, benefits and alternatives was obtained and time-out was performed prior to the procedure.Preparation (MIPS): The site was prepared and draped using all elements of maximal sterile barrier technique including sterile gloves, sterile gown, cap, mask, large sterile sheet, sterile ultrasound probe cover, hand hygiene and cutaneous antisepsis with 2% chlorhexidine. Medical reason for site preparation exception (MIPS): Not applicable Anesthesia/sedationLevel of anesthesia/sedation: No sedation, 50mcg fentanyl for pain.Anesthesia/sedation administered by: Independent trained observer under attending supervision with continuous monitoring of the patient\\X2019\\s level of consciousness and physiologic statusTotal intra-service sedation time (minutes): NA AccessLocal anesthesia was administered. The vessel wassonographically evaluated and determined to be patent. Real time ultrasound was used to visualize needle entry into the vessel and a permanent image was stored.Vein accessed: Internal jugular veinAccess technique: Micropuncture set with 21 gauge needle Catheter placementAn incision was made near the venous access site and the catheter was tunneled subcutaneously to the venous access site and trimmed t o appropriate length. The catheter was advanced via a peel-away sheath into the vein under fluoroscopic guidance. Catheter tip location was fluoroscopically verified and a permanent image was stored.Catheter placed: BardCatheter size (Lao): 6Catheter flush: Normal saline ClosureA sterile dressing was applied.Access site closure technique: Tissue adhesiveCatheter securement technique: Non-absorbable suture ContrastContrast agent: NoneContrast volume (mL): 0 Radiation DoseFluoroscopy time (minutes): 0.3 Reference air kerma (mGy): 1.8 Additional DetailsAdditional description of procedure: NoneEquipment details: NoneSpecimens removed: NoneEstimated blood loss (mL): Less than 10Standardized report: [email or web address]_v3 AttestationSigner name: Carl Pinto attest that I was present for the entire procedure. I reviewed the stored images and agree with the report as written. Signed: Carl Handy MDReport Verified Date/Time: 11/14/2020 16:02:10 Reading Location: [place] [address] Angio Body Reading Room [facility] 12 [id number] 13:16:39Interface, External Ris In - 11/14/2020 1:16 PM CDTVentricular Rate 94 BPMAtrial Rate 94 BPMP-R Interval 150 msQRS Duration 70 msQ-T Interval 340 msQTC Calculation(Bazeadiel) 425 msP [place] 49 degreesR [place] 40 degreesT [place] 42 degreesNormal sinus rhythmLow voltage QRSCannot rule out Anterior infarct (cited on or before 19-OCT-2020)Abnormal ECGWhen compared with ECG of 19-OCT-2020 22:26,Questionable change in initial forces of Septal leadsConfirmed by MD KATE, JONI ([id number]) on 11/14/2020 1:16:36 [facility] BASIC METABOLIC [id number] 12:24:00 Test Item Value Reference Range Interpretation Comments SODIUM (BEAKER) 139 meq/L 136-145 (test code = 381) POTASSIUM (BEAKER) 4.3 meq/L 3.5-5.1 Specimen slightly (test code = 379) hemolyzed CHLORIDE (BEAKER) 105 meq/L 98-107 (test code = 382) CO2 (BEAKER) (test 27 meq/L 22-29 code = 355) BLOOD UREA NITROGEN 23 mg/dL 7-21 H (BEAKER) (test code = 354) CREATININE (BEAKER) 1.03 mg/dL 0.57-1.25 Specimen slightly (test code = 358) hemolyzed GLUCOSE RANDOM 82 mg/dL 70-105 (BEAKER) (test code = 652) CALCIUM (BEAKER) 9.5 mg/dL 8.4-10.2 (test code = 697) EGFR (BEAKER) (test 72 mL/min/1.73 ESTIMA RYANNE GFR IS code = 1092) sq m NOT ACCURATE CREATININE CLEARANCE IN PREDICTING GLOMERULAR FILTRATION RATE . ESTIMATED GFR I S NOT APPLICABLE FOR DIALYSIS PATIEN TS. Wiring Mechanic ID - [id number] 12:09:00 Test Item Value Reference Range Interpretation Comments PTT (test code = 26514-1) 34.8 See_Comment [ Automated message] The system [employer]fish generated this result transmitted ref erence range: 22.5 - 3 6.0 seconds. The re ference range was not u sed to interpret this result as normal/abnor mal. Lab Interpretation (test Normal code = 74618-8) [facility] HospitalAPTT[facility] 12:09:00 Test Item Value Reference Range Interpretation Comments PARTIAL THROMBOPLASTIN TIME 34.8 seconds 22.5-36.0 (BEAKER) (test code = 760) PROTHROMBIN TIME/[id number] 12:08:00 Test Item Value Reference Range Interpretation Comments PROTIME (BEAKER) 13.3 seconds 11.9-14.2 (test code = 759) INR (BEAKER) (test 1.04 See_Comment [Automat ed message] code = 370) The system [employer]fish generated this result transmitted ref erence range: <=5.90. The reference range was not used to int erpret this result as normal/abnormal . Effective 12/10/2018: PT Reference Range ChangeNew: 11.9-14.2 Previous: 11.7- 14.7RECOMMENDED COUMADIN/WARFARIN INR THERAPY RANGESSTANDARD DOSE: 2.0-3.0 Includes: PROPHYLAXIS for venous thrombosis, systemic embolization; TREATMENT for venous thrombosis and/or pulmonary embolus.HIGH RISK: Target INR is2.5-3.5 for patients wiht mechanical heart valves.CBC W/PLT COUNT & AUTO [id number] 12:06:00 Test Item Value Reference Range Interpretation Comments WHITE BLOOD CELL COUNT (BEAKER) 4.1 K/ L 3.5-10.5 (test code = 775) RED BLOOD CELL COUNT (BEAKER) 4.36 M/ L 3.93-5.22 (test code = 761) HEMOGLOBIN (BEAKER) (test code = 9.6 GM/DL 11.2-15.7 L 410) HEMATOCRIT (BEAKER) (test code = 31.6 % 34.1-44.9 L 411) MEAN CORPUSCULAR VOLUME (BEAKER) 72.5 fL 79.4-94.8 L (test code = 753) MEAN CORPUSCULAR HEMOGLOBIN 22.0 pg 25.6-32.2 L (BEAKER) (test code = 751) MEAN CORPUSCULAR HEMOGLOBIN CONC 30.4 GM/DL 32.2-35.5 L (BEAKER) (test code = 752) RED CELL DISTRIBUTION WIDTH 15.3 % 11.7-14.4 H (BEAKER) (test code = 412) PLATELET COUNT (BEAKER) (test 297 K/CU MM 150-450 code = 756) MEAN PLATELET VOLUME (BEAKER) 9.7 fL 9.4-12.3 (test code = 754) NUCLEATED RED BLOOD CELLS 0 /100 WBC 0-0 (BEAKER) (test code = 413) NEUTROPHILS RELATIVE PERCENT 63 % (BEAKER) (test code = 429) LYMPHOCYTES RELATIVE PERCENT 12 % (BEAKER) (test code = 430) MONOCYTES RELATIVE PERCENT 11 % (BEAKER) (test code = 431) EOSINOPHILS RELATIVE PERCENT 13 % (BEAKER) (test code = 432) BASOPHILS RELATIVE PERCENT 1 % (BEAKER) (test code = 437) NEUTROPHILS ABSOLUTE COUNT 2.58 K/ L 1.56-6.13 (BEAKER) (test code = 670) LYMPHOCYTES ABSOLUTE COUNT 0.47 K/ L 1.18-3.74 L (BEAKER) (test code = 414) MONOCYTES ABSOLUTE COUNT (BEAKER) 0.46 K/ L 0.24-0.36 H (test code = 415) EOSINOPHILS ABSOLUTE COUNT 0.51 K/ L 0.04-0.36 H (BEAKER) (test code = 416) BASOPHILS ABSOLUTE COUNT (BEAKER) 0.02 K/ L 0.01-0.08 (test code = 417) IMMATURE GRANULOCYTES-RELATIVE 1 % 0-1 PERCENT (BEAKER) (test code = 2801) SARS-COV2/RT-PCR ([facility])2020-11-13 08:38:00 Test Item Value Reference Range Interpretation Comments SARS-COV2/RT-PCR (test Negative Not Detected, Negative, code = 4973735) See external report for linked test SARS-COV-2 PERFORMING LAB [facility] (test code = 3773828) Negative result for this test determines that [...] 564(g) of the Act.Fact Sheet for Healthcare Providers:https://www.[place]/sites/default/files/product/documents/Fact_Shee q_IE_Jjrxysjvc_Bwse_CTOM-XvN-8.pdfFact Sheet for Healthcare Patients:https://www.[employer]/sites/default/files/product/ documents/Lxki_Dnkxl_Jylfubdg_Esgc_WOFV-SkR-2.pdfPerforming Laboratory:[facility], [place] [address]Vgerzm acid, venous 2020-11-12 21:51:00 Test Item Value Reference Range Interpretation Comments Lactate, Venous (test 1.53 mmol/L 0.5-2.2 Specim en code = 2872) markedly hemolyzed ELADIA (test code = ELADIA) Wiring Mechanic ID - ADMINSpecimen slightly lipemic Lab Interpretation Normal (test code = 92479-6) [facility] HospitalLACTIC ACID, [id number] 21:51:00 Test Item Value Reference Range Interpretation Comments LACTATE BLOOD VENOUS 1.53 mmol/L 0.50-2.20 Specime n markedly (2) (BEAKER) (test hemolyzed code = 2872) Wiring Mechanic ID - ADMINSpecimen PEDRO Hernandez2021-05-01 20:59:00 Unlisted Reason for Exam - Click Yes and Enter Reason Below->YesUnlisted Reason for Exam->bilateral ureteral stents and known kidney stones. c/o of worsening back pain L>RWill this procedure require oral contrast?->No [facility] : 1980 Sex: FFINAL REPORT EXAM: CT of the abdomen and pelvis, without contrast CLIN ICAL HISTORY: Unlisted Reason for Exambilateral ureteral stents and known kidney stones. c/o of worsening back pain L>R TECHNIQUE: CT of the abdomen and pelvis was performed without the intravenous administration of contrast. This exam was performed according to our departmental dose optimization program which includes automated exposure control, adjustment of the mA and/or kV according to patient's size and/or use of iterative reconstructive technique. COMPARISON: CT abdomen and pelvis 11/01/2020. FINDINGS: Please note that lack of intravenous contrast limits evaluation of the solid organs, soft tissues and vascular structures. LOWER CHEST: Mild bibasilar subsegmental and discoid atelectasis.HEPATOBILIARY: Cholelithiasis. Marked hepatomegaly with the right hepatic lobe measuring 24 cm in length.PANCREAS: Unremarkable unenhanced appearance.SPLEEN: Severe splenomegaly.ADRENALS: Unremarkableunenhanced appearance.KIDNEYS/URETERS: Bilateral nephroureteral stents in place. Moderate left hydroureteronephrosis, mildly worsened. Multiple nonobstructing bilateral renal stones, similar to prior exam. No ureteral stones. No perinephric stranding. URINARY BLADDER: Within normal limits.REPRODUCTIVEORGANS: Within normal limits. BOWEL/MESENTERY: No bowel obstruction or abnormal wall thickening. Normal appendix.PERITONEUM/RETROPERITONEUM: No free air, free fluid or fluid collection. VESSELS: Upper abdominal varices. LYMPH NODES: Multiple mildly enlarged retroperitoneal lymph nodes, similar to prior exam. 9 mm short axis right external iliac lymph node.SOFT TISSUES: Within normal limits.BONES: Within normal limits. IMPRESSION: Bilateral nephroureteral stents in satisfactory position. Moderate left hydroureteronephrosis, mildly worsened in the interval. Multiple nonobstructing bilateral renal stones. No ureteral stones. Hepatosplenomegaly. Mildly nodular liver contour suggesting cirrhosis. Upper abdominal varices in keeping with portal hypertension. Retroperitoneal lymphadenopathy, similar to prior exam. Correlate with history of lymphoproliferative disease. Cholelithiasis. Signed: Cruzito Little MDReport Verified Date/Time: 11/12/2020 20:59:43 Pregnancy screen, [id number] 17:45:00 Test Item Value Reference Range Interpretation Comments Preg Test, Ur (test code = 2112-1) Negative [facility] [id number] 17:45:00 Test Item Value Reference Range Interpretation Comments TEST URINE (BEAKER) (test Negative code = 583) BASIC METABOLIC [id number] 16:29:00 Test Item Value Reference Range Interpretation Comments SODIUM (BEAKER) 140 meq/L 136-145 (test code = 381) POTASSIUM (BEAKER) 4.3 meq/L 3.5-5.1 (test code = 379) CHLORIDE (BEAKER) 110 meq/L 98-107 H (test code = 382) CO2 (BEAKER) (test 22 meq/L 22-29 code = 355) BLOOD UREA NITROGEN 24 mg/dL 7-21 H (BEAKER) (test code = 354) CREATININE (BEAKER) 1.19 mg/dL 0.57-1.25 (test code = 358) GLUCOSE RANDOM 94 mg/dL 70-105 (BEAKER) (test code = 652) CALCIUM (BEAKER) 9.7 mg/dL 8.4-10.2 (test code = 697) EGFR (BEAKER) (test 61 mL/min/1.73 ESTIMA RYANNE GFR IS code = 1092) sq m NOT ACCURATE CREATININE CLEARANCE IN PREDICTING GLOMERULAR FILTRATION RATE . ESTIMATED GFR I S NOT APPLICABLE FOR DIALYSIS PATIEN TS. Wiring Mechanic ID - DBCBC W/PLT COUNT & AUTO [id number] 16:21:00 Test Item Value Reference Range Interpretation Comments WHITE BLOOD CELL COUNT (BEAKER) 5.0 K/ L 3.5-10.5 (test code = 775) RED BLOOD CELL COUNT (BEAKER) 4.59 M/ L 3.93-5.22 (test code = 761) HEMOGLOBIN (BEAKER) (test code = 10.1 GM/DL 11.2-15.7 L 410) HEMATOCRIT (BEAKER) (test code = 33.2 % 34.1-44.9 L 411) MEAN CORPUSCULAR VOLUME (BEAKER) 72.3 fL 79.4-94.8 L (test code = 753) MEAN CORPUSCULAR HEMOGLOBIN 22.0 pg 25.6-32.2 L (BEAKER) (test code = 751) MEAN CORPUSCULAR HEMOGLOBIN CONC 30.4 GM/DL 32.2-35.5 L (BEAKER) (test code = 752) RED CELL DISTRIBUTION WIDTH 15.6 % 11.7-14.4 H (BEAKER) (test code = 412) PLATELET COUNT (BEAKER) (test 364 K/CU MM 150-450 code = 756) MEAN PLATELET VOLUME (BEAKER) 10.5 fL 9.4-12.3 (test code = 754) NUCLEATED RED BLOOD CELLS 0 /100 WBC 0-0 (BEAKER) (test code = 413) NEUTROPHILS RELATIVE PERCENT 57 % (BEAKER) (test code = 429) LYMPHOCYTES RELATIVE PERCENT 15 % (BEAKER) (test code = 430) MONOCYTES RELATIVE PERCENT 12 % (BEAKER) (test code = 431) EOSINOPHILS RELATIVE PERCENT 14 % (BEAKER) (test code = 432) BASOPHILS RELATIVE PERCENT 0 % (BEAKER) (test code = 437) NEUTROPHILS ABSOLUTE COUNT 2.85 K/ L 1.56-6.13 (BEAKER) (test code = 670) LYMPHOCYTES ABSOLUTE COUNT 0.72 K/ L 1.18-3.74 L (BEAKER) (test code = 414) MONOCYTES ABSOLUTE COUNT (BEAKER) 0.62 K/ L 0.24-0.36 H (test code = 415) EOSINOPHILS ABSOLUTE COUNT 0.71 K/ L 0.04-0.36 H (BEAKER) (test code = 416) BASOPHILS ABSOLUTE COUNT (BEAKER) 0.02 K/ L 0.01-0.08 (test code = 417) IMMATURE GRANULOCYTES-RELATIVE 1 % 0-1 PERCENT (BEAKER) (test code = 2801) URINALYSIS W/ REFLEX URINE [id number] 16:21:00 Test Item Value Reference Range Interpretation Comments COLOR (BEAKER) (test code = 470) Davina CLARITY (BEAKER) (test code = 469) Hazy SPECIFIC GRAVITY UA (BEAKER) (test 1.014 1.001-1.035 code = 468) PH UA (BEAKER) (test code = 467) 7.0 5.0-8.0 PROTEIN UA (BEAKER) (test code = [...] RBC UA (BEAKER) (test code = 519) 2732 /HPF WBC UA (BEAKER) (test code = 520) 334 /HPF BACTERIA (BEAKER) (test code = 517) Many SQUAMOUS EPITHELIAL (BEAKER) (test 3 /HPF code = 516) CRYSTALS, URINE (BEAKER) (test code Many = 1521) SOURCE(BEAKER) (test code = 2795) Wiring Mechanic ID - [auto]Wiring Mechanic ID - [id number]-[id number] 00:00:00Ordered by an unspecified provider.[facility] ([facility]uncture)2020-11-06 13:01:00 Test Item Value Reference Range Interpretation Comments Result (test code = No growth in 5 days 6463-4) [facility] [id number] 13:01:00 Test Item Value Reference Range Interpretation Comments CULTURE (BEAKER) (test No growth in 5 days code = 1095) BLOOD [id number] 13:01:00 Test Item Value Reference Range Interpretation Comments CULTURE (BEAKER) (test No growth in 5 days code = 1095) URINE [id number] 10:20:00 Test Item Value Reference Range Interpretation Comments CULTURE (BEAKER) (test 30-39,000 col/mL skin code = 1095) erlinda BASIC METABOLIC [id number] 04:54:00 Test Item Value Reference Range Interpretation Comments SODIUM (BEAKER) 135 meq/L 136-145 L (test code = 381) POTASSIUM (BEAKER) 4.5 meq/L 3.5-5.1 (test code = 379) CHLORIDE (BEAKER) 107 meq/L 98-107 (test code = 382) CO2 (BEAKER) (test 21 meq/L 22-29 L code = 355) BLOOD UREA NITROGEN 25 mg/dL 7-21 H (BEAKER) (test code = 354) CREATININE (BEAKER) 0.95 mg/dL 0.57-1.25 (test code = 358) GLUCOSE RANDOM 84 mg/dL 70-105 (BEAKER) (test code = 652) CALCIUM (BEAKER) 9.6 mg/dL 8.4-10.2 (test code = 697) EGFR (BEAKER) (test 79 mL/min/1.73 ESTIMA RYANNE GFR IS code = 1092) sq m NOT ACCURATE CREATININE CLEARANCE IN PREDICTING GLOMERULAR FILTRATION RATE . ESTIMATED GFR I S NOT APPLICABLE FOR DIALYSIS PATIEN TS. Wiring Mechanic ID - PIAYA LCBC W/PLT COUNT & AUTO [id number] 04:39:00 Test Item Value Reference Range Interpretation Comments WHITE BLOOD CELL COUNT (BEAKER) 4.1 K/ L 3.5-10.5 (test code = 775) RED BLOOD CELL COUNT (BEAKER) 4.15 M/ L 3.93-5.22 (test code = 761) HEMOGLOBIN (BEAKER) (test code = 9.2 GM/DL 11.2-15.7 L 410) HEMATOCRIT (BEAKER) (test code = 29.7 % 34.1-44.9 L 411) MEAN CORPUSCULAR VOLUME (BEAKER) 71.6 fL 79.4-94.8 L (test code = 753) MEAN CORPUSCULAR HEMOGLOBIN 22.2 pg 25.6-32.2 L (BEAKER) (test code = 751) MEAN CORPUSCULAR HEMOGLOBIN CONC 31.0 GM/DL 32.2-35.5 L (BEAKER) (test code = 752) RED CELL DISTRIBUTION WIDTH 15.6 % 11.7-14.4 H (BEAKER) (test code = 412) PLATELET COUNT (BEAKER) (test 248 K/CU MM 150-450 code = 756) MEAN [...] code = 414) MONOCYTES ABSOLUTE COUNT (BEAKER) 0.52 K/ L 0.24-0.36 H (test code = 415) EOSINOPHILS ABSOLUTE COUNT 0.27 K/ L 0.04-0.36 (BEAKER) (test code = 416) BASOPHILS ABSOLUTE COUNT (BEAKER) 0.03 K/ L 0.01-0.08 (test code = 417) IMMATURE GRANULOCYTES-RELATIVE 1 % 0-1 PERCENT (BEAKER) (test code = 2801) SARS-COV2/RT-PCR ([facility])2020-11-01 22:54:00 Test Item Value Reference Range Interpretation Comments SARS-COV2/RT-PCR (test Negative Not Detected, Negative, code = 6306618) See external report for linked test SARS-COV-2 PERFORMING LAB [facility] RAEANN (test code = 1705599) Negative result for this test determines that [...] the Gutierres SARS-CoV-2 assay.Fact Sheet for Healthcare Providers:https://www.molecular.gutierres/meri/ FW_UOPC-LfR-7_IQM_Rjqj_Stthq_50-372706.pdfFact Sheet for Healthcare Patients:https://www.molecular.ab roxana/meri/QW_HSMM-TbX-8_Kxeuuot_Zjdd_Qvpyl_CB_39-029482B2.pdfPerforming Laboratory:[facility] [place] [address] [id number] 15:30:00 Test Item Value Reference Range Interpretation Comments Lipase (test code = 50 U/L 8-78 3040-3) ELADIA (test code = ELADIA) Wiring Mechanic ID - TRISH M Lab Interpretation (test Normal code = 29754-5) [facility] HospitalCOMPREHENSIVE METABOLIC [id number] 15:30:00 Test Item Value Reference Range Interpretation Comments TOTAL PROTEIN 7.8 gm/dL 6.0-8.3 Specimen sligh tly (BEAKER) (test code = hemoly zed 770) ALBUMIN (BEAKER) 3.3 g/dL 3.5-5.0 L Specimen sl ightly (test code = 1145) hemolyzed ALKALINE PHOSPHATASE 972 U/L 40-150 H (BEAKER) (test code = 346) BILIRUBIN TOTAL 0.4 mg/dL 0.2-1.2 Specimen sli ghtly (BEAKER) (test code = hemoly zed 377) SODIUM (BEAKER) (test 134 meq/L 136-145 L code = 381) POTASSIUM (BEAKER) 5.1 meq/L 3.5-5.1 Specimen slightly (test code = 379) hemolyzed CHLORIDE (BEAKER) 105 meq/L 98-107 (test code = 382) CO2 (BEAKER) (test 19 meq/L 22-29 L code = 355) BLOOD UREA NITROGEN 27 mg/dL 7-21 H (BEAKER) (test code = 354) CREATININE (BEAKER) 1.19 mg/dL 0.57-1.25 Specimen slightly (test code = 358) hemolyzed GLUCOSE RANDOM 101 mg/dL 70-105 (BEAKER) (test code = 652) CALCIUM (BEAKER) 10.3 mg/dL 8.4-10.2 H (test code = 697) AST (SGOT) (BEAKER) 68 U/L 5-34 H Specimen slightly (test code = 353) hemolyzed ALT (SGPT) (BEAKER) 60 U/L 6-55 H Specimen slightly (test code = 347) hemolyzed EGFR (BEAKER) (test 61 mL/min/1.73 ESTIMA RYANNE GFR IS code = 1092) sq m NOT ACCURATE CREATININE CLEARANCE IN PREDICTING GLOMERULAR FILTRATION RATE . ESTIMATED GFR I S NOT APPLICABLE FOR DIALYSIS PATIEN TS. Wiring Mechanic ID - TRISH [id number] 15:30:00 Test Item Value Reference Range Interpretation Comments LIPASE (BEAKER) (test code = 749) 50 U/L 8-78 Wiring Mechanic ID - TRISH MCT, ABDOMEN - PELVIS, RENAL STONE EVAL, WITHOUT IV CONTRAST 2020-11-01 13:47:00Unlisted Reason for Exam - Click Yes and Enter Reason Below->NoCH[facility]ENTERName: ERROL MAGALLANES : 1980 Sex: FFINAL REPORT CT, ABDOMEN - PELVIS, RENAL STONE EVAL, WITHOUT IV CONTRA ST HISTORY: Flank pain, kidney stone suspected COMPARISON: 10/20/2020 TECHNIQUE: On a multirow-detector CT scanner, a volumetric scan was performed through the abdomen and pelvis without the administration of intravenous contrast. Dose modulation, iterative reconstruction, and/or weight-based adjustment of the mA/kV was utilized to reduce the radiation dose to as low as reasonably achievable. FINDINGS: Lack of intravenous contrast compromises evaluation of perfusion and for isodense lesions. Lung bases: Streaky bilateral lower lobe scarring, no convincing change. Subcentimeter short axis anterior mediastinal lymph nodes, no changeLiver: Diffusely nodular in contour. No solid mass. Hepatomegaly.Gallbladder and bile ducts: Gallstones with no gallbladder wall thickening or pericholecystic fluid. No biliary dilation.Spleen: Markedly enlarged.Pancreas: Unremarkable.Adrenals: UnremarkableKidneys and ureters: Bilateral ureteral stents in appropriate position. Bilateral renal calculi. Persistent punctate calculus in the mid left ureter with minimal residual left pelvocaliectasis. No right hydronephrosis and no right-sided ureteral calculi. Bowel: Nondilated bowel with no wall thickening.Bladder: Underdistended and poorly evaluated.Reproductive organs: Unremarkable.Lymph nodes: Conspicuous number of numerous sub and pericentimeter retroperitoneal lymph nodes, no convincing change, poorly evaluated without IV contrast.Peritoneum: Unremarkable.Vessels: Unremarkable.Abdominal wall: Unremarkable.Bones: Unremarkable. IMPRESSION: Lack of intravenous contrast compromises evaluation of perfusion and for isodense lesions. 1.Bilateral ureteral stents in appropriate position. Bilateral renal calculi. A persistent punctate calculus in the mid left ureter with minimal residual left pelvocaliectasis. 2.Hepatosplenomegaly and nodular liver contour concerning for cirrhosis. 3.Conspicuous number of numerous suband pericentimeter retroperitoneal lymph nodes, no convincing change, poorly evaluated without IV contrast. Correlate for any history of lymphoproliferative disease. 4.Cholelithiasis, no evidence for cecal cystitis. Signed: Duke Tadeo MDReport Verified Date/Time: 11/01/2020 13:47:17 Reading Location: [place] [id number] Ortho Consult Reading Room CT abdomen & pelvis - renal stone evaluation without iv [id number] 13:47:00Interface, External Ris In - 11/01/2020 1:[address], ABDOMEN - PELVIS, RENAL STONE EVAL, WITHOUT IV CONTRAST HISTORY: Flank pain, kidney stone suspected COMPARISON: 10/20/2020 TECHNIQUE: On a multirow-detector CT scanner, a volumetric scan was performed through the abdomen and pelvis without the administration of intravenous contrast. Dose modulation, iterative r econstruction, and/or weight-based adjustment of the mA/kV was utilized to reduce the radiation doseto as low as reasonably achievable. FINDINGS: Lack of intravenous contrast compromises evaluation ofperfusion and for isodense lesions. Lung bases: Streaky bilateral lower lobe scarring, no convincingchange. Subcentimeter short axis anterior mediastinal lymph nodes, no changeLiver: Diffusely nodularin contour. No solid mass. Hepatomegaly.Gallbladder and bile ducts: Gallstones with no gallbladder wall thickening or pericholecystic fluid. No biliary dilation.Spleen: Markedly enlarged.Pancreas: Unremarkable.Adrenals: UnremarkableKidneys and ureters: Bilateral ureteral stents in appropriate position. Bilateral renal calculi. Persistent punctate calculus in the mid left ureter with minimal residual left pelvocaliectasis. No right hydronephrosis and no right-sided ureteral calculi. Bowel: Nondilatedbowel with no wall thickening.Bladder: Underdistended and poorly evaluated.Reproductive organs: Unremarkable.Lymph nodes: Conspicuous number of numerous sub and pericentimeter retroperitoneal lymph nodes, no convincing change, poorly evaluated without IV contrast.Peritoneum: Unremarkable.Vessels: Unremarkable.Abdominal wall: Unremarkable.Bones: Unremarkable. IMPRESSION: Lack of intravenous contrast co mpromises evaluation of perfusion and for isodense lesions. 1.Bilateral ureteral stents in appropriate position. Bilateral renal calculi. A persistent punctate calculus in the mid left ureter with minimal residual left pelvocaliectasis. 2.Hepatosplenomegaly and nodular liver contour concerning for cirrhosis. 3.Conspicuous number of numerous sub and pericentimeter retroperitoneal lymph nodes, no convincing change, poorly evaluated without IV contrast. Correlate for any history of lymphoproliferativedisease. 4.Cholelithiasis, no evidence for cecal cystitis. Signed: Duke Tadeo Verified Date/Time: 11/01/2020 13:47:17 Reading Location: [address] Ortho Consult Reading [facility], [id number] 13:01:00 Test Item Value Reference Range Interpretation Comments pH, Josué (test code = 7.43 7.32-7.42 H 2746-6) pCO2, Josué (test code = 33 See_Comment L [Aut omated 755) message] The sy stem which generated this result transmitted reference range : 41 - 51 mm Hg. The reference range was not used to interpret this result as normal/abnormal . pO2, Josué (test code = 213 See_Comment H [Auto mated 6555-2) message] The sy stem which generated this result transmitted reference range : 25 - 40 mm Hg. The reference range was not used to interpret this result as normal/abnormal . O2 Sat, Josué (test code 99.5 % 40-70 H = 2711-0) HCO3, Josué (test code = 21 mmol/L 21-29 73546-9) Base Excess, Josué (test -2.5 mmol/L -2-3 L code = 1927-3) Patient Temperature 37.0 (test code = 8310-5) FIO2 (test code = 1819) 100 Lab Interpretation Abnormal (test code = 58532-8) [facility] URINE [id number] 13:01:00 Test Item Value Reference Range Interpretation Comments COLOR (BEAKER) (test code = 470) Davina CLARITY (BEAKER) (test code = 469) Hazy SPECIFIC GRAVITY UA (BEAKER) (test 1.015 1.001-1.035 code = 468) PH UA (BEAKER) (test code = 467) 7.5 5.0-8.0 PROTEIN UA (BEAKER) (test code = [...] RBC UA (BEAKER) (test code = 519) 1756 /HPF WBC UA (BEAKER) (test code = 520) 377 /HPF BACTERIA (BEAKER) (test code = 517) Rare SQUAMOUS EPITHELIAL (BEAKER) (test 1 /HPF code = 516) SOURCE(BEAKER) (test code = 2795) Wiring Mechanic ID - [auto]Wiring Mechanic ID - techBLOOD GAS, [id number] 13:01:00 Test Item Value Reference Range Interpretation Comments PH VENOUS (BEAKER) (test code = 7.43 7.32-7.42 H 701) PCO2 VENOUS (BEAKER) (test code = 33 mm Hg 41-51 L 755) PO2 VENOUS (BEAKER) (test code = 213 mm Hg 25-40 H 702) O2 SATURATION VENOUS (BEAKER) 99.5 % 40.0-70.0 H (test code = 703) HCO3 VENOUS (BEAKER) (test code = 21 mmol/L 21-29 705) BASE EXCESS VENOUS (BEAKER) (test -2.5 mmol/L -2.0-3.0 L code = 704) PATIENT TEMPERATURE (BEAKER) 37.0 (test code = 1818) FIO2 (BEAKER) (test code = 1819) 100.0 LACTIC ACID, [id number] 12:50:00 Test Item Value Reference Range Interpretation Comments LACTATE BLOOD VENOUS 0.90 mmol/L 0.50-2.20 Specime n moderately (2) (BEAKER) (test hemolyzed code = 2872) Wiring Mechanic ID - SHANIKA LPREGNANCY SCREEN, [id number] 12:47:00 Test Item Value Reference Range Interpretation Comments TEST URINE (BEAKER) (test Negative code = 583) CBC W/PLT COUNT & AUTO [id number] 12:32:00 Test Item Value Reference Range Interpretation Comments WHITE BLOOD CELL COUNT (BEAKER) 6.3 K/ L 3.5-10.5 (test code = 775) RED BLOOD CELL COUNT (BEAKER) 4.74 M/ L 3.93-5.22 (test code = 761) HEMOGLOBIN (BEAKER) (test code = 10.4 GM/DL 11.2-15.7 L 410) HEMATOCRIT (BEAKER) (test code = 34.2 % 34.1-44.9 411) MEAN CORPUSCULAR VOLUME (BEAKER) 72.2 fL 79.4-94.8 L (test code = 753) MEAN CORPUSCULAR HEMOGLOBIN 21.9 pg 25.6-32.2 L (BEAKER) (test code = 751) MEAN CORPUSCULAR HEMOGLOBIN CONC 30.4 GM/DL 32.2-35.5 L (BEAKER) (test code = 752) RED CELL DISTRIBUTION WIDTH 15.5 % 11.7-14.4 H (BEAKER) (test code = 412) PLATELET COUNT (BEAKER) (test 327 K/CU MM 150-450 code = 756) MEAN PLATELET VOLUME (BEAKER) 10.6 fL 9.4-12.3 (test code = 754) NUCLEATED RED BLOOD CELLS 0 /100 WBC 0-0 (BEAKER) (test code = 413) NEUTROPHILS RELATIVE PERCENT 74 % (BEAKER) (test code = 429) LYMPHOCYTES RELATIVE PERCENT 13 % (BEAKER) (test code = 430) MONOCYTES RELATIVE PERCENT 7 % (BEAKER) (test code = 431) EOSINOPHILS RELATIVE PERCENT 6 % (BEAKER) (test code = 432) BASOPHILS RELATIVE PERCENT 1 % (BEAKER) (test code = 437) NEUTROPHILS ABSOLUTE COUNT 4.70 K/ L 1.56-6.13 (BEAKER) (test code = 670) LYMPHOCYTES ABSOLUTE COUNT 0.82 K/ L 1.18-3.74 L (BEAKER) (test code = 414) MONOCYTES ABSOLUTE COUNT (BEAKER) 0.41 K/ L 0.24-0.36 H (test code = 415) EOSINOPHILS ABSOLUTE COUNT 0.35 K/ L 0.04-0.36 (BEAKER) (test code = 416) BASOPHILS ABSOLUTE COUNT (BEAKER) 0.03 K/ L 0.01-0.08 (test code = 417) IMMATURE GRANULOCYTES-RELATIVE 1 % 0-1 PERCENT (BEAKER) (test code = 2801) Anaerobic [id number] 07:37:00 Test Item Value Reference Range Interpretation Comments Result (test code = No anaerobes isolated 6463-4) [facility] [id number] 07:37:00 Test Item Value Reference Range Interpretation Comments CULTURE (BEAKER) (test No anaerobes isolated code = 1095) BLOOD [id number] 04:01:00 Test Item Value Reference Range Interpretation Comments CULTURE (BEAKER) (test No growth in 5 days code = 1095) BLOOD [id number] 04:01:00 Test Item Value Reference Range Interpretation Comments CULTURE (BEAKER) (test No growth in 5 days code = 1095) URINE [id number] 13:38:00 Test Item Value Reference Range Interpretation Comments CULTURE (BEAKER) (test code = 1095) No growth BASIC METABOLIC [id number] 05:02:00 Test Item Value Reference Range Interpretation Comments SODIUM (BEAKER) 135 meq/L 136-145 L (test code = 381) POTASSIUM (BEAKER) 3.9 meq/L 3.5-5.1 (test code = 379) CHLORIDE (BEAKER) 108 meq/L 98-107 H (test code = 382) CO2 (BEAKER) (test 19 meq/L 22-29 L code = 355) BLOOD UREA NITROGEN 19 mg/dL 7-21 (BEAKER) (test code = 354) [...] S NOT APPLICABLE FOR DIALYSIS PATIEN TS. Wiring Mechanic ID - BSBASIC METABOLIC [id number] 05:04:00 Test Item Value Reference Range Interpretation Comments SODIUM (BEAKER) 139 meq/L 136-145 (test code = 381) POTASSIUM (BEAKER) 4.0 meq/L 3.5-5.1 (test code = 379) CHLORIDE (BEAKER) 112 meq/L 98-107 H (test code = 382) CO2 (BEAKER) (test 17 meq/L 22-29 L code = 355) BLOOD UREA NITROGEN 24 mg/dL 7-21 H (BEAKER) (test code = 354) CREATININE (BEAKER) 1.35 mg/dL 0.57-1.25 H (test code = 358) GLUCOSE RANDOM 79 mg/dL 70-105 (BEAKER) (test code = 652) CALCIUM (BEAKER) 9.4 mg/dL 8.4-10.2 (test code = 697) EGFR (BEAKER) (test 53 mL/min/1.73 ESTIMA RYANNE GFR IS code = 1092) sq m NOT ACCURATE CREATININE CLEARANCE IN PREDICTING GLOMERULAR FILTRATION RATE . ESTIMATED GFR I S NOT APPLICABLE FOR DIALYSIS PATIEN TS. Wiring Mechanic ID - EDASIVancomycin level, [id number] 04:49:00 Test Item Value Reference Range Interpretation Comments Vancomycin Tr (test code = 16.2 ug/mL 10-20 4092-3) ELADIA (test code = ELADIA) Wiring Mechanic ID - BS Lab Interpretation (test Normal code = 34439-3) [facility] HospitalVANCOMYCIN LEVEL, [id number] 04:49:00 Test Item Value Reference Range Interpretation Comments VANCOMYCIN TROUGH (BEAKER) (test 16.2 ug/mL 10.0-20.0 code = 522) Wiring Mechanic ID - BSVANCOMYCIN LEVEL, [id number] 08:46:00 Test Item Value Reference Range Interpretation Comments VANCOMYCIN TROUGH (BEAKER) (test 6.8 ug/mL 10.0-20.0 L code = 522) Wiring Mechanic ID - DBSPIN/CONCENTRATION [id number] 07:36:00 Test Item Value Reference Range Interpretation Comments Concentration charged (test code = Done 9586) [facility] [id number] 07:36:00 Test Item Value Reference Range Interpretation Comments CONCENTRATION CHARGED (BEAKER) (test Done code = 7747) Hepatic function [id number] 05:58:00 Test Item Value Reference Range Interpretation Comments Protein, Total (test 6.1 See_Comment [Autom ated code = 2885-2) message] The system which generated this result transmit ryanne reference range : 6.0 - 8.3 gm/dL . The reference range was not u sed to interpret th is result as normal/abnormal . Albumin (test code = 2.7 g/dL 3.5-5 L 64287-5) Total Bilirubin (test 0.4 mg/dL 0.2-1.2 code = 1975-2) Bilirubin, Direct 0.3 mg/dL 0.1-0.5 (test code = 1968-7) Alkaline Phosphatase 640 U/L 40-150 H (test code = 6768-6) AST (test code = 18 U/L 5-34 1920-8) ALT (test code = 13 U/L 6-55 1742-6) ELADIA (test code = ELADIA) Wiring Mechanic ID - EDASI Lab Interpretation Abnormal (test code = 61730-6) [facility] HospitalBAS[facility]OLIC [id number] 05:58:00 Test Item Value Reference Range Interpretation Comments SODIUM (BEAKER) 137 meq/L 136-145 (test code = 381) POTASSIUM (BEAKER) 4.3 meq/L 3.5-5.1 (test code = 379) CHLORIDE (BEAKER) 111 meq/L 98-107 H (test code = 382) CO2 (BEAKER) (test 17 meq/L 22-29 L code = 355) BLOOD UREA NITROGEN 22 mg/dL 7-21 H (BEAKER) (test code = 354) CREATININE (BEAKER) 1.17 mg/dL 0.57-1.25 (test code = 358) GLUCOSE RANDOM 110 mg/dL 70-105 H (BEAKER) (test code = 652) CALCIUM (BEAKER) 8.5 mg/dL 8.4-10.2 (test code = 697) EGFR (BEAKER) (test 62 mL/min/1.73 ESTIMA RYANNE GFR IS code = 1092) sq m NOT ACCURATE CREATININE CLEARANCE IN PREDICTING GLOMERULAR FILTRATION RATE . ESTIMATED GFR I S NOT APPLICABLE FOR DIALYSIS PATIEN TS. Wiring Mechanic ID - [id number] 05:58:00 Test Item Value Reference Range Interpretation Comments MAGNESIUM (BEAKER) (test code = 1.9 mg/dL 1.6-2.6 627) Wiring Mechanic ID - EDASIHEPATIC FUNCTION [id number] 05:58:00 Test Item Value Reference Range Interpretation Comments TOTAL PROTEIN (BEAKER) (test code = 6.1 gm/dL 6.0-8.3 770) ALBUMIN (BEAKER) (test code = 1145) 2.7 g/dL 3.5-5.0 L BILIRUBIN TOTAL (BEAKER) (test code 0.4 mg/dL 0.2-1.2 = 377) BILIRUBIN DIRECT (BEAKER) (test 0.3 mg/dL 0.1-0.5 code = 706) ALKALINE PHOSPHATASE (BEAKER) (test 640 U/L 40-150 H code = 346) AST (SGOT) (BEAKER) (test code = 18 U/L 5-34 353) ALT (SGPT) (BEAKER) (test code = 13 U/L 6-55 347) Wiring Mechanic ID - EDASICBC W/PLT COUNT & AUTO [id number] 05:33:00 Test Item Value Reference Range Interpretation Comments WHITE BLOOD CELL COUNT (BEAKER) 4.1 K/ L 3.5-10.5 (test code = 775) RED BLOOD CELL COUNT (BEAKER) 4.22 M/ L 3.93-5.22 (test code = 761) HEMOGLOBIN (BEAKER) (test code = 9.3 GM/DL 11.2-15.7 L 410) HEMATOCRIT (BEAKER) (test code = 30.3 % 34.1-44.9 L 411) MEAN CORPUSCULAR VOLUME (BEAKER) 71.8 fL 79.4-94.8 L (test code = 753) MEAN CORPUSCULAR HEMOGLOBIN 22.0 pg 25.6-32.2 L (BEAKER) (test code = 751) MEAN CORPUSCULAR HEMOGLOBIN CONC 30.7 GM/DL 32.2-35.5 L (BEAKER) (test code = 752) RED CELL DISTRIBUTION WIDTH 15.7 % 11.7-14.4 H (BEAKER) (test code = 412) PLATELET COUNT (BEAKER) (test 238 K/CU MM 150-450 code = 756) MEAN PLATELET VOLUME (BEAKER) 9.8 fL 9.4-12.3 (test code = 754) NUCLEATED RED BLOOD CELLS 0 /100 WBC 0-0 (BEAKER) (test code = 413) NEUTROPHILS RELATIVE PERCENT 75 % (BEAKER) (test code = 429) LYMPHOCYTES RELATIVE PERCENT 16 % (BEAKER) (test code = 430) MONOCYTES RELATIVE PERCENT 9 % (BEAKER) (test code = 431) EOSINOPHILS RELATIVE PERCENT 0 % (BEAKER) (test code = 432) BASOPHILS RELATIVE PERCENT 0 % (BEAKER) (test code = 437) NEUTROPHILS ABSOLUTE COUNT 3.03 K/ L 1.56-6.13 (BEAKER) (test code = 670) LYMPHOCYTES ABSOLUTE COUNT 0.63 K/ L 1.18-3.74 L (BEAKER) (test code = 414) MONOCYTES ABSOLUTE COUNT (BEAKER) 0.35 K/ L 0.24-0.36 (test code = 415) EOSINOPHILS ABSOLUTE COUNT 0.01 K/ L 0.04-0.36 L (BEAKER) (test code = 416) BASOPHILS ABSOLUTE COUNT (BEAKER) 0.00 K/ L 0.01-0.08 L (test code = 417) IMMATURE GRANULOCYTES-RELATIVE 1 % 0-1 PERCENT (BEAKER) (test code = 2801) [id number] 15:54:34Reason for exam:->cysto stent placement [facility] MAG[facility] : 1980 Sex: FFluoroscopic unit utilized for a procedure performed in the OR. No interpretation was requested. Refer to the operative report for findings. Refer to PACS for patient radiation dose information.BASIC METABOLIC [id number] 11:26:00 Test Item Value Reference Range Interpretation Comments SODIUM (BEAKER) 134 meq/L 136-145 L (test code = 381) POTASSIUM (BEAKER) 3.7 meq/L 3.5-5.1 (test code = 379) CHLORIDE (BEAKER) 108 meq/L 98-107 H (test code = 382) CO2 (BEAKER) (test 16 meq/L 22-29 L code = 355) BLOOD UREA NITROGEN 20 mg/dL 7-21 (BEAKER) (test code = 354) CREATININE (BEAKER) 1.24 mg/dL 0.57-1.25 (test code = 358) GLUCOSE RANDOM 85 mg/dL 70-105 (BEAKER) (test code = 652) CALCIUM (BEAKER) 8.8 mg/dL 8.4-10.2 (test code = 697) EGFR (BEAKER) (test 58 mL/min/1.73 ESTIMA RYANNE GFR IS code = 1092) sq m NOT ACCURATE CREATININE CLEARANCE IN PREDICTING GLOMERULAR FILTRATION RATE . ESTIMATED GFR I S NOT APPLICABLE FOR DIALYSIS PATIEN TS. Wiring Mechanic ID - AMANDA FGamma Glutamyl Transferase (GGT)2020-10-20 09:49:00 Test Item Value Reference Range Interpretation Comments GGT (test code = 122 U/L 9-64 H Specimen 2324-2) slightly hemolyzed ELADIA (test code = ELADIA) Wiring Mechanic ID - AMANDA F Lab Interpretation Abnormal (test code = 50160-1) [facility] (GGT)2020-10-20 09:49:00 Test Item Value Reference Range Interpretation Comments GAMMA GLUTAMYL 122 U/L 9-64 H Specimen slig htly TRANSFERASE (BEAKER) hemolyz ed (test code = 364) Wiring Mechanic ID - AMANDA FLACTIC ACID, [id number] 04:06:00 Test Item Value Reference Range Interpretation Comments LACTATE BLOOD VENOUS 1.27 mmol/L 0.50-2.20 Specime n slightly (2) (BEAKER) (test hemolyzed code = 2872) Wiring Mechanic ID - TRISH MSARS-CoV2/Influenza/RSV RT-PCR (Symptomatic ONLY)2020-10-20 01:51:00 Test Item Value Reference Range Interpretation Comments SARS-COV2/RT-PCR (test Negative Negative code = 19191-2) Influenza A RT-PCR Negative Negative (test code = 69893-5) Influenza B RT-PCR Negative Negative (test code = 49686-7) RSV by RT-PCR (test Negative Negative Performa nce of the code = 36275-1) Xpert Xpress SARS-CoV-2/Flu/ RSV test has only been established in nasopharyngeal swab specimens. Use of the Xpert Xpress SARS-CoV-2/Flu/ RSV test with other spec imen types has not b een assessed and performance characteristics are unknown. As wi th any molecular test, mutations withi n the targeted geneti c regions identif ied by the Xpert Xpres s SARS-CoV-2/Flu/ RSV test could affect pr elvie and/or probe bi nding resulting in fa ilure to detect the pres ence of virus or the vi antoinette being detected less predictably.Neg ative results do not preclude SARS-CoV-2, Inf luenza A/B, or RSV inf ection and should not be used as the sole bas is for treatment or ot her patient managem ent decisions. Res ults from the Xpert Xpress SARS-CoV-2/Flu/ RSV test should be corre lated with the clinic al history, epidemiological data, and other data available to th e clinician evalu ating the patient. I nvalid test results ma y occur from improper s pecimen collection; mracia lure to follow the harshal mmended sample collecti on, handling, and s torage procedures; alli hnical error. False ne gative results may occ ur if virus is presen t at levels below th e analytical limi t of detection (LOD: 131 copies/mL). Vi ral nucleic acid ma y persist in vivo , independent of virus viability. Dete ction of analyte target( s) does not imply that the corresponding v irus(es) are infectious or are the causative a gents for clinical sy mptoms. Recent patient exposure to FluMist or other live attenuated influenza vacci ashley may cause inaccurat e positive result s.This test has been authorized by Mikaela WELLS under an EUA for use by authorized laboratories. This test is only au thorized for the duratio n of the declaration funmilayo t circumstances e xist justifying the authorization o f emergency use o f in vitro diagnosti c tests for detection a nd/or diagnosis of CO VID-19 under Section 5 64(b)(1) of the Federal Food, Drug and Cosmet ic Act, 21 U.S.C. 360bbb-3(b)(1), unless the authorizati on is terminated or r evoked sooner. Fact Sh eet for Healthcare Prov iders: https://www.My Hood /Documents/Xper t%20Xpre ss%57VNRX-YzX-5 -Flu-RSV /302-4508%20Rev .%20B%20 HCP%20Fact%20Sh eet.pdf Fact Sheet for Healthcare Inga ents: https://www.[employer] /Documents/Xper t%20Xpre ss%88JKKU-LrV-1 -Flu-RSV /302-4508%20Rev .%20B%20 Patient%20Fact% 20Sheet. pdf Lab Interpretation Normal (test code = 50960-6) [facility]RSV [id number] 01:51:00 Test Item Value Reference Range Interpretation Comments SARS-COV2/RT-PCR Negative Negative (test code = 3034386) INFLUENZA A RT-PCR Negative Negative (test code = 2077283) INFLUENZA B RT-PCR Negative Negative (test code = 9355094) RSV RT-PCR (test Negative Negative Performanc e of the Xpert code = 2564149) Xpress SARS- CoV-2/Flu/RSV test has only b een established in nasopharyngeal swab specimens. Use of the Xpert Xpress SARS-CoV-2/Flu/ RSV test with other spec imen types has not been as sessed and performance characteristics are unknown. As wi th any molecular test, mutations within the targ eted genetic regions identified by Xpert Xpress SARS-CoV -2/Flu/RSV test could affe ct primer and/or probe bi nding resulting in fa ilure to detect the pres ence of virus or the vi antoinette being detected less predictably.Neg ative results do not preclude SARS-CoV-2, Inf luenza A/B, or RSV inf ection and should not be u sed as the sole basis for treatment or other patien t management deci sions. Results from e Xpert Xpress SARS-CoV -2/Flu/RSV test should be correlated with the clinic al history, epidem iological data, and other data available to e clinician evalu ating the patient. Inval id test results may occ ur from improper specim en collection; marcia lure to follow the harshal mmended sample collecti on, handling, and s torage procedures; alli hnical error. False ne gative results may occ ur if virus is presen t at levels below e analytical limi t of detection (LOD: 131 copies/mL). Vi ral nucleic acid ma y persist in vivo, indepe ndent of virus viability . Detection of an alyte target(s) does not imply that the corres ponding virus(es) are i nfectious or are the caus ative agents for clin ical symptoms. Rece nt patient exposure to Flu Mist or other live atte nuated influenza vacci ashley may cause inaccurat e positive results.This te st has been authorized by FDA under an EUA fo r use by authorized labo ratories. This test is on ly authorized for the duration of the declaration funmilayo t circumstances e xist justifying the authorization o f emergency use o f in vitro diagnostic test s for detection and/o r diagnosis of CO VID-19 under Section 5 64(b)(1) of the Federal Food, Drug and Cosmetic Ac t, 21 U.S.C. 360bbb -3(b)(1), unless the auth orization is terminated o r revoked sooner.Fact She et for Healthcare Prov iders: https://www.InTown.com/D ocuments/Xpert% 20Xpress%2 7KFSZ-DqC-0-Flu -RSV/302-4 508%20Rev.%20B% 20HCP%20Fa ct%20Sheet.pdfF act Sheet for Healthcare Patients: https://www.InTown.com/D ocuments/Xpert% 20Xpress%2 3ZNKK-RoF-1-Flu -RSV/302-4 507%20Rev.%20B% 20Patient% 20Fact%20Sheet. pdf LACTIC ACID, [id number] 01:38:00 Test Item Value Reference Range Interpretation Comments LACTATE BLOOD VENOUS 2.05 mmol/L 0.50-2.20 Specime n slightly (2) (BEAKER) (test hemolyzed code = 2872) Wiring Mechanic ID - SHANIKA OLEARYT, [id number] 01:19:00Reason for exam:->Left flank painIs the patient ?->NoWhat is the patient's sedation req uirement?->No Sedation [facility] MAG[facility]AN[facility] : 1980 Sex: FFINAL REPORT EXAM: CT of the abdomen and pelvis, without contrast CLIN ICAL HISTORY: Flank pain, kidney stone suspected. Left flank pain TECHNIQUE: CT of the abdomen and pelvis was performed without the intravenous administration of contrast. This exam was performed according to our departmental dose optimization program which includes automated exposure control, adjustment of the mA and/or kV according to patient's size and/or use of iterative reconstructive technique. COMPARISON: CT abdomen and pelvis 06/23/2020. FINDINGS: Please note that lack of intravenous contrast limits evaluation of the solid organs, soft tissues and vascular structures. LOWER CHEST: Bibasilar linear atelectasis/scarring.HEPATOBILIARY: Cholelithiasis. Hepatomegaly. Mildly nodular liver contour in keeping with cirrhosis.PANCREAS: Unremarkable unenhanced appearance.SPLEEN: Moderate to severe splenomegaly.ADRENALS: Unremarkable unenhanced appearance.KIDNEYS/URETERS: Interval removal of left nephroureteral stent. Mild left hydroureteronephrosis due to two stones in the proximal left ureter measuring 3 mm and 4 mm respectively. Multiple subcentimeter nonobstructing bilateral renal stones. URINARY BLADDER: Within normal limits.REPRODUCTIVE ORGANS: Within normal limits. BOWEL/MESENTERY: No mal wel obstruction or abnormal wall thickening. Normal appendix.PERITONEUM/RETROPERITONEUM: Trace pelvic free fluid, nonspecific. No free air or fluid collection. VESSELS: Upper abdominal varices in keeping with portal hypertension. LYMPH NODES: No abdominal or pelvic lymphadenopathy.SOFT TISSUES: Small fat-containing umbilical hernia.BONES: Within normal limits. IMPRESSION:Interval removal of left nephroureteral stent.Mild left hydroureteronephrosis due to two stones in the proximal left ureter measuring 3 mm and 4 mm respectively. Multiple bilateral subcentimeter nonobstructing renal stones.Cholelithiasis without CT evidence of acute cholecystitis.Cirrhosis and evidence of portal hypertension.Hepatosplenomegaly. Signed: Cruzito [facility] Verified Date/Time: 10/20/2020 01:19:14 HCG, QUANTITATIVE, 2020-10-19 23:37:00 Test Item Value Reference Range Interpretation Comments GONADOTROPIN, CHORIONIC (HCG) QUANT < mIU/mL 0-10 (BEAKER) (test code = 649) Non- Females: <10 mIU/mL Females: Gestation Age Reference Range(mIU/mL) 0.2-1 Week 5-50 1-2 Weeks 50-500 2-3 Weeks 100-5,000 3-4Weeks 500-10,000 4-5 Weeks 1,000-50,000 5-6 Weeks 10,000-100,000 6-8 Weeks 15,000-200,000 2-3 Months 10,000-100,000 Wiring Mechanic ID - BSTarnulfo [id number] 23:28:00 Test Item Value Reference Range Interpretation Comments Troponin I (test code = <0.01 0-0.03 16401-6) ELADIA (test code = ELADIA) Troponin I (TnI) levels must be interpreted in the context of the presenting symptoms and the clinical findings. Elevated TnI levels indicate myocardial damage, but are not specific for ischemic heart disease. Elevated TnI levels are seen in patients with other cardiac conditions (including myocarditis and congestive heart failure), and slight TnI elevations occur in patients with other conditions, including sepsis, renal failure, acidosis, acute neurological disease, and persistent tachyarrhythmia.Opera tor ID - BS Lab Interpretation (test Normal code = 91882-2) [facility]TR[facility]ENTERJOSEPHINEN [id number] 23:28:00 Test Item Value Reference Range Interpretation Comments TROPONIN I (BEAKER) (test code = 397) < ng/mL 0.00-0.03 Troponin I (TnI) levels must be interpreted in the context of the presenting symptoms and the clinical findings. Elevated TnI levels indicate myocardial damage, but are not specific for ischemic heart disease. Elevated TnI levels are seen in patients with other cardiac conditions (including myocarditis and congestive heart failure), and slight TnI elevations occur in patients with other conditions, including sepsis, renal failure, acidosis, acute neurological disease, and persistent tachyarrhythmia.Wiring Mechanic ID - BSURINALYSIS W/ REFLEX URINE [id number] 23:23:00 Test Item Value Reference Range Interpretation Comments COLOR (BEAKER) (test code = 470) Yellow CLARITY (BEAKER) (test code = 469) Hazy SPECIFIC GRAVITY UA (BEAKER) (test 1.010 1.001-1.035 code = 468) PH UA (BEAKER) (test code = 467) 7.0 5.0-8.0 PROTEIN UA (BEAKER) (test code = 20 mg/dL Negative A 464) GLUCOSE UA (BEAKER) (test code = Negative Negative 365) KETONES UA (BEAKER) (test code = Negative Negative 371) BILIRUBIN UA (BEAKER) (test code = Negative Negative 462) BLOOD UA (BEAKER) (test code = 461) Small Negative A NITRITE UA (BEAKER) (test code = Negative Negative 465) LEUKOCYTE ESTERASE UA (BEAKER) Large Negative A (test code = 466) UROBILINOGEN UA (BEAKER) (test code 0.2 mg/dL 0.2-1.0 = 463) RBC UA (BEAKER) (test code = 519) 7 /HPF WBC UA (BEAKER) (test code = 520) 22 /HPF SQUAMOUS EPITHELIAL (BEAKER) (test 1 /HPF code = 516) SOURCE(BEAKER) (test code = 2795) Wiring Mechanic ID - [auto]Wiring Mechanic ID - techCOMPREHENSIVE METABOLIC [id number] 23:22:00 Test Item Value Reference Range Interpretation Comments TOTAL PROTEIN 7.0 gm/dL 6.0-8.3 Specimen sligh tly (BEAKER) (test code = hemoly zed 770) ALBUMIN (BEAKER) 3.0 g/dL 3.5-5.0 L Specimen sl ightly (test code = 1145) hemolyzed ALKALINE PHOSPHATASE 786 U/L 40-150 H (BEAKER) (test code = 346) BILIRUBIN TOTAL 0.6 mg/dL 0.2-1.2 Specimen sli ghtly (BEAKER) (test code = hemoly zed 377) SODIUM (BEAKER) (test 135 meq/L 136-145 L code = 381) POTASSIUM (BEAKER) 3.8 meq/L 3.5-5.1 Specimen slightly (test code = 379) hemolyzed CHLORIDE (BEAKER) 104 meq/L 98-107 (test code = 382) CO2 (BEAKER) (test 19 meq/L 22-29 L code = 355) BLOOD UREA NITROGEN 22 mg/dL 7-21 H (BEAKER) (test code = 354) CREATININE (BEAKER) 1.50 mg/dL 0.57-1.25 H Specimen slightly (test code = 358) hemolyzed GLUCOSE RANDOM 88 mg/dL 70-105 (BEAKER) (test code = 652) CALCIUM (BEAKER) 10.0 mg/dL 8.4-10.2 (test code = 697) AST (SGOT) (BEAKER) 23 U/L 5-34 Specimen slightly (test code = 353) hemolyzed ALT (SGPT) (BEAKER) 17 U/L 6-55 Specimen slightly (test code = 347) hemolyzed EGFR (BEAKER) (test 47 mL/min/1.73 ESTIMA RYANNE GFR IS code = 1092) sq m NOT ACCURATE CREATININE CLEARANCE IN PREDICTING GLOMERULAR FILTRATION RATE . ESTIMATED GFR I S NOT APPLICABLE FOR DIALYSIS PATIEN TS. Wiring Mechanic ID - [id number] 23:22:00 Test Item Value Reference Range Interpretation Comments LIPASE (BEAKER) (test code = 749) 17 U/L 8-78 Wiring Mechanic ID - [id number] 23:06:00 Test Item Value Reference Interpretation Comments Range Protime (test code = 13.8 See_Comment [Autom ated 5902-2) message] The system which generated this result transmitted reference range : 11.9 - 14.2 seconds. The reference range was not used to interpret this result as normal/abnormal . INR (test code = 1.11 See_Comment [Automated 6301-6) message] The system which generated this result transmitted reference range : <=5.90. The reference range was not used to interpret this result as normal/abnormal . PTT (test code = 37.8 See_Comment H [Automated 91274-6) message] The system which generated this result [...] valves. Lab Interpretation Abnormal (test code = 71997-7) [facility] HospitalPT/[id number] 23:06:00 Test Item Value Reference Range Interpretation Comments PROTIME (BEAKER) (test 13.8 seconds 11.9-14.2 code = 759) INR (BEAKER) (test 1.11 See_Comment [Automat ed code = 370) message] The sy stem which generated this result transmitted reference range : <=5.90. The reference range was not used to interpret this result as normal/abnormal . PARTIAL THROMBOPLASTIN 37.8 seconds 22.5-36.0 H TIME (BEAKER) (test code = 760) Effective 12/10/2018: PT Reference Range ChangeNew: 11.9-14.2 Previous: 11.7- 14.7RECOMMENDED COUMADIN/WARFARIN INR THERAPY RANGESSTANDARD DOSE: 2.0-3.0 Includes: PROPHYLAXIS for venous thrombosis, systemic embolization; TREATMENT for venous thrombosis and/or pulmonary embolus.HIGH RISK: Target INR is2.5-3.5 for patients wiht mechanical heart valves.CBC W/PLT COUNT & AUTO [id number] 23:03:00 Test Item Value Reference Range Interpretation Comments WHITE BLOOD CELL COUNT (BEAKER) 4.9 K/ L 3.5-10.5 (test code = 775) RED BLOOD CELL COUNT (BEAKER) 4.61 M/ L 3.93-5.22 (test code = 761) HEMOGLOBIN (BEAKER) (test code = 10.2 GM/DL 11.2-15.7 L 410) HEMATOCRIT (BEAKER) (test code = 32.4 % 34.1-44.9 L 411) MEAN CORPUSCULAR VOLUME (BEAKER) 70.3 fL 79.4-94.8 L (test code = 753) MEAN CORPUSCULAR HEMOGLOBIN 22.1 pg 25.6-32.2 L (BEAKER) (test code = 751) MEAN CORPUSCULAR HEMOGLOBIN CONC 31.5 GM/DL 32.2-35.5 L (BEAKER) (test code = 752) RED CELL DISTRIBUTION WIDTH 15.3 % 11.7-14.4 H (BEAKER) (test code = 412) PLATELET COUNT (BEAKER) (test 257 K/CU MM 150-450 code = 756) MEAN PLATELET VOLUME (BEAKER) 9.9 fL 9.4-12.3 (test code = 754) NUCLEATED [...] (test code = 437) NEUTROPHILS ABSOLUTE COUNT 3.22 K/ L 1.56-6.13 (BEAKER) (test code = 670) LYMPHOCYTES ABSOLUTE COUNT 0.83 K/ L 1.18-3.74 L (BEAKER) (test code = 414) MONOCYTES ABSOLUTE COUNT (BEAKER) 0.68 K/ L 0.24-0.36 H (test code = 415) EOSINOPHILS ABSOLUTE COUNT 0.13 K/ L 0.04-0.36 (BEAKER) (test code = 416) BASOPHILS ABSOLUTE COUNT (BEAKER) 0.01 K/ L 0.01-0.08 (test code = 417) IMMATURE GRANULOCYTES-RELATIVE 0 % 0-1 PERCENT (BEAKER) (test code = 2801) RAD, CHEST, 2 [id number] 22:52:00Reason for exam:->chest pain [facility] : 1980 Sex: FFINAL REPORT Exam: RAD, CHEST, 2 VIEWSDate: 10/19/2020 10:50 PM Indicati on: Chest Pain Comparison: Chest radiograph 03/10/2020, CT abdomen and pelvis 06/23/2020 FINDINGS: Lines/Tubes:None Lungs:The lungs are well-inflated. Unchanged bilateral lower lung opacities. No new focal consolidation or pulmonary edema. Pleura:No pleural effusion. No pneumothorax. Heart/Mediastinum:The cardiomediastinal silhouette is normal in size and contour. Bones/Soft Tissues: No acute osseous injury. Abdomen: No free air below the diaphragm. IMPRESSION:Unchanged bilateral lower lung opacities correspond with atelectasis/scarring seen on prior abdomen and pelvis CT. No focal pneumonia or pulmonary edema. Signed: Carl Handy Verified Date/Time: 10/19/2020 22:52:06 Reading Location:[address] Reading Room Electronically signed by: CARL HANDY MD on 110:52 PMXR chest 2 views 2020-10-19 22:52:00Interface, External Ris In - 10/19/2020 10:54 PM CDTFINAL REPORT Exam: RAD, CHEST, 2 VIEWSDate: 10/19/2020 10:50 PM Indication: Chest Pain Comparison: Chest radiograph 03/10/2020, CT abdomen and pelvis 06/23/2020 FINDINGS: Lines/Tubes:None Lungs:The lungs are well-inflated. Unchanged bilateral lower lung opacities. No new focal consolidation or pulmonary edema. Pleura:No pleural effusion. No pneumothorax. Heart/Mediastinum:The cardiomediastinal silhouette is normal in size and con tour. Bones/Soft Tissues: No acute osseous injury. Abdomen: No free air below the diaphragm. IMPRESSION:Unchanged bilateral lower lung opacities correspond with atelectasis/scarring seen on prior abdomen and pelvis CT. No focal pneumonia or pulmonary edema. Signed: Carl Handy MDReport Verified Date/Time: 10/19/2020 22:52:06 Reading Location: [address] Transitional Reading [facility] [id number] 22:24:11Steven Galvez MD 10/20/2020 1:31 AMECG/EKG Interpretation Date/Time: 10/19/2020 11:44 PMPerformed by: Steven Galvez MDAuthorized by: Steven Galvez MD The ECG was interpreted by ED physician. The ECG is interpreted as sinus rhythm. Rate is normal rate. Heart rate is 93 BPM.Conduction: conduction normal. ST segments normal. T waves normal.[facility] HospitalBLOOD [id number] 22:00:00 Test Item Value Reference Range Interpretation Comments CULTURE (BEAKER) (test No growth in 5 days code = 1095) BLOOD [id number] 21:01:00 Test Item Value Reference Range Interpretation Comments CULTURE (BEAKER) (test No growth in 5 days code = 1095) URINE [id number] 12:13:00 Test Item Value Reference Range Interpretation Comments CULTURE (BEAKER) (test code = 1095) No growth BASIC METABOLIC [id number] 07:20:00 Test Item Value Reference Range Interpretation [...] S NOT APPLICABLE FOR DIALYSIS PATIEN TS. Wiring Mechanic ID - PIAYA LCBC W/PLT COUNT & AUTO [id number] 06:59:00 Test Item Value Reference Range Interpretation [...] 2801) FL, FLUORO, NON-SPECIFIC, UP TO 1 [id number] 21:57:00Reason for exam:- >Ureteral stent placement [facility] ERROL MAGALL[facility] : 1980 Sex: FFluoroscopic unit utilized for a procedure performed in the OR. No interpretation was requested. Refer to the operative report for findings. Refer to PACS for patient radiation dose information.SARS-COV2/RT-PCR ([facility])2020-06-23 14:52:00 Test Item Value Reference Range Interpretation Comments SARS-COV2/RT-PCR (test Negative Not Detected, Negative, code = 6725722) See external report for linked test SARS-COV-2 PERFORMING LAB [facility] RAEANN (test code = 2130025) Negative result for this test determines that [...] 564(g) of the Act.Fact Sheet for Healthcare Providers:https://www.[employer]/sites/default/files/product/documents/Fact_Shee f_LC_Aixwwayfn_Cyou_CECN-GkR-4.pdfFact Sheet for Healthcare Patients:https://www.[employer].com/sites/default/files/product/ documents/Ccgw_Kkycj_Ctlxwwdq_Jghh_JKHW-DxG-5.pdfPerforming Laboratory:[facility].[place], [place] [address]QFLOI METABOLIC PANEL 2020-06-23 14:33:00 Test Item Value [...] S NOT APPLICABLE FOR DIALYSIS PATIEN TS. Wiring Mechanic ID - [place] FCBC W/PLT COUNT & AUTO [id number] 06:10:00 Test Item Value Reference Range Interpretation [...] (BEAKER) (test code = 2801) BASIC METABOLIC [id number] 05:14:00 Test Item Value Reference Range Interpretation [...] S NOT APPLICABLE FOR DIALYSIS PATIEN TS. Wiring Mechanic ID - TRISH [id number] 05:14:00 Test Item Value Reference Range Interpretation Comments MAGNESIUM (BEAKER) (test code = 1.8 mg/dL 1.6-2.6 627) Wiring Mechanic ID - TRISH [id number] 05:14:00 Test Item Value Reference Range Interpretation Comments PHOSPHORUS (BEAKER) (test code = 3.9 mg/dL 2.3-4.7 604) Wiring Mechanic ID - TRISH MCT, [id number] 01:27:00Unlisted Reason for Exam - Click Yes and Enter Reason Below->No [facility] ERROL MAGALLAN[facility] : 1980 Sex: FFINAL REPORT CT, ABDOMEN [...] scarring but infection not excluded. Signed: Ky Herrera MDReport Verified Date/Time: 06/23/2020 01:27:10 PREGNANCY SCREEN, [id number] 21:39:00 Test Item Value Reference Range Interpretation Comments TEST URINE (BEAKER) (test Negative code = 583) URINALYSIS W/ REFLEX URINE [id number] 21:35:00 Test Item Value Reference Range Interpretation [...] 73 /HPF SOURCE(BEAKER) (test code = 2795) Wiring Mechanic ID - [auto]Wiring Mechanic ID - techCOMPREHENSIVE METABOLIC [id number] 20:13:00 Test Item Value Reference Range Interpretation [...] S NOT APPLICABLE FOR DIALYSIS PATIEN TS. Wiring Mechanic ID - BSCBC W/PLT COUNT & AUTO [id number] 19:59:00 Test Item Value Reference Range Interpretation [...] PERCENT (BEAKER) (test code = 2801) Tissue [id number] 06:24:00 Test Item Value Reference Range Interpretation Comments Case Report (test code Surgical Pathology = 104) Report Case: [id number] Authorizing Provider: Denise Ayobu MD Collected: 05/17/2020 02:13 PM Ordering Location: [facility] Received: 05/18/2020 08:50 AM SERVICES Pathologist: Ralf Fajardo MD Specimens: A) - Explant, Left ureteral stent for gross ID B) - Explant, Right ureteral stent for gross ID DIAGNOSIS (test code = b4xwdAOhADLnb2ugOIBniYP 3220) uZzEwMzNcZnRuYmpcdWMxIH tccnRmMVxlcGljOTIwMFxhb aJdCGAilWSsY8IwolggOEkc KR1yVD0drUbybXSbcUAzCSX zRdJfm5yfl544iOYjb6hxUN EOnozvoJs2wUdiQ33pn3V0H qjfQ83ihKGcDEqrkHEhrcdo czIwIFBBUlQgQSBMRUZUIFV RCNOAZxRVDWHAQA2XOYXIDL 1PVkFMOlxwYXIgVVJFVEVSQ VjeP4CCKuYfDOdNE0EWXKIZ DIxYB2ZKRaXDSrePOXpcZLS ccGFyIFBBUlQgQiBSSUdIVC BVUkVURVJBTCBTVEVOVCwgU dQVR8WNKQcfrAGgDCIIDCHF SkFKZLDSJR9JURcTBx6UKwC OHOCPLa9HHLIoO40XGHyzoE JpSJDcoy07IWN6KlNyr5G2K NQ9JCJqTKRuh1ihNTNqyTEa ZzEwMzNcZnRuYmpcdWMxXGR fPtRhe7koq702gXJdd3lxTH LsKbQ7pZYaWLPavIGgK356Z UOcZLtri1xmp7EdWCYrjBHx y2T7PPFVcmremGo5zRfxW93 jk7W1QpidA7paQALjLPQyO9 XqAC8uKSTmNaj5NLK2BNS6J DPtEMNcB1HeTX1aPVEdhGYk EXt0k7orrWknFMWaJTG9z9g sFCwqniAuSF6emu3hoWx4w0 xjczEgRGVmYXVsdCBQYXJhZ 2CrzNgaQd1zqYf0qUuyVdsg KQG5Qwr1YQ2ahx75cvw5dAr qQJUqjnahYlA7WEuyDOXfsm qtWJg0TCrzGPTqjAM5OFWlw JFyY2OpGTRyTZ3swsc6TXU0 EGxvYRHzDmI8YFYbjEJlFWB gaAnlWAgkt534GMX4OcOvAA 2tR9Wno0R4zJ6lzLZyQVAfm QMhWcFhWOGmet6grQYsLRqf n1ZwGNA6sxD3cWXuvDMbQOL sBvS2EEzzSS4chl21ZYDfMC N2mn1jrTUjdSvuweEohLJaM CilE2UdQLRtc278HEHqN9Ik RKVqf8S7uoSeSrDaZNBekVQ 2joS0ZIFnZV2ygdatr0qyJU hsGZhyCMQfxlH4urN6GUBuc FKhC9EjfD6cHDQvWN6dgjhp m0iaKRG8OSebOUPcUVT9NzN aVLSld5Naiol7RyVrx2ZdxM GcXEipS02td877GXVgxhYfK 1xwbGFpblxwbGFpblxmMFxm rxS6CEQwQUvjxrjnLXUgHEq bR8vaVbKxDXDclFzeJHarv6 NoXGYxXGZzMjJcdGFiXHRhY nb9RXKkiJGuIEGzCoItG6wb cobsNtBHHCYhg7fgL1ljiXJ StSZaJ9PqZGryxfYfWWsdHT jfCJUrCZL1HG09SCecWMKhj n19 CPT Code(s) (test code a8yybCUtWRMaxNZ7KvKzYFJ = 3357) fu0bgs9NnjOZnwIBpDXjnbQ TafkTaon68tKG0wA49KG5jT TZfDnM5IUEppvV7Ehg7PVFd JDZxsWJtN718e0wgj8lxsgY swKD4yJmlJBLkYMOfNNokRX ZzMjAgODgzMDBYMlxwYXJ9 CLINICAL HISTORY (test y4rydVPnFRAaiWN8MrZpIUM code = 3356) la0lqh9DodXMisRCfFFfbhL HgaeZkqe02dNQ1sC17AH4kC GBwWsO7GPTfgdM4Nvi3CDIl ACCynXVgW331s3yhm9mmjjG brNW7iWmsRZWwUSMtZSyqXK HvZxWqGPMdu4FdDWjtZ14mk 7xeDoXkAvQyLHacc6PibsNa cGFyfQ== SPECIMEN SOURCE (test x9oxyKYtLWNrsPA7OaVaGMB code = 3377) wv2fph5RimNEskNLkOWhyuN XraoNkqj75sGD3wO59CE1xW CNdVnW1ZKHsauX9Vsd1XWSe IDCtpSAbS636z6qxc1jsjgN ahOZ8jQfcCPSbAMDiCJkpAJ ZzMjAgRXhwbGFudFxwYXJ9 GROSS DESCRIPTION d2lmsPKwAUZrvVN3CnAqBBV (test code = 3366) yr2amc8MeaTVsqCJbGHttuI AxohBkpm51gDC9nY71AJ9rM EJfKdE2VXAxjlE7Ocp5KCMw LYLjwVHhP118s8bhb3oqrnC pxEG4qCkmRXRkQLPhHPsaHB UjPnGsIJ7bAsFySQc7FRFiE mUrz3rvpASkVKbyYZC3jRYl MUFgAXOsCDGkJS50N2WpmcZ qAFotVJMjBWSmeK0xRL93xZ PmjbYytdFvNmY5dGgwxcMxG OfoDlNsoGIrbCOuHHrpk5Xi zmQpCm0sBDojt9ByPYkASmH mrgSfFXR8CHUtCCyoDOepgr r5jEA8DLRpFbUanCSkebYzy BRnHZWejtQwdEHjTRN9pyTt TXIhIfV3dDNdKMdckTcvVfb tO2jzhVRgaD3jkhuhKYJdnj RjSRK9WAzjo6byTglccZJvU WRiq1s1NZGbTrH0k7KpxLO0 lTYrkWwbj8F5SAKhXKA7vCY lLiBUaGlzIHBhcnQgaXMgZ3 Ika2Cxj63etHEouiSaR6Wcx 4UpnVuxqN5syeQmfZXvQUSp MMJcn4BuYfpaKSJwyYHwTQV qOMUfY3LcrkSiYBKgUVWjZJ qtRtOvXZHzn6j2gNF8qREbw FE7lGTodHimKA6soNKdOVTn J1Xef7xgwzHlmM5kQRScKI2 vCPHkvFDaME17GJXhuHyblF P1qtP9LAYpzQBwlQZyqCWtj 2JyP8Ule2VuZTUnIXhdEXJj DuejHREmeNUwljOmLN0gePj fyBIpZwUuC14giK8sHPlsjJ K2DZEoHxh0DRVkcA15xXZ7g LRsc2jhBTL7lKXeAZSzPWCr VTaku7zcUWRbtejsZH4xYNU pa8RefrKbUJ5wiY93IE8iQJ cewCayhrLcvVRaAQAkgT7ii XRzLiBUaGlzIHBhcnQgaXMg F8Sbh5Rjm23ltFNxzaAxJ3Y iw6ZefKtfnA2hltUcrUBhHA OqMZAfv3JaLkOLRo9erPZed GFyfQ== Gross assessment was [facility]'s performed at ([facility], code = 2777) Department of Pathology, [address] [place] [address], Technical component [facility] was performed at ([facility], code = 2778) Department of Pathology, [address] [place] [address], Professional component [facility]'s was performed at ([facility], code = 2779) Department of Pathology, [address] [place] [address], [facility] [id number] 06:24:00Surgical Pathology Report Case: [id number] Authorizing Provider: Denise Ayoub MD Collected: 05/17/2020 02:13 PM Ordering Location: [facility] Received: 05/18/2020 08:50 AM SERVICES Pathologist: Ralf Fajardo MD Specimens: A) - Explant, Left ureteral stent for gross ID B) -Explant, Right ureteral stent for gross ID PART A LEFT URETERALSTENT, REMOVAL:URETERAL STENT (GROSS DIAGNOSIS ONLY)PART B RIGHT URETERAL STENT, REMOVAL:URETERAL STENT (GROSS DIAGNOSIS ONLY) Signing Pathologist Direct Phone Line: [phone] signed by Ralf Fajardo MD on 05/25/2020 at 6:24 [id number] diagnosis: Renal stoneExplantA. Received fresh labeled with [...] is gross only and gross photographsare taken. JG/pl [facility], Department of Pathology, [address] [place] [address], [facility], Department of [facility]ology, [address] [place] [address], [facility]skySan [facility], Department of Pathology, [address] [place] [address], LZJPX METABOLIC [id number] 07:06:00 Test Item Value Reference Range Interpretation [...] S NOT APPLICABLE FOR DIALYSIS PATIEN TS. Wiring Mechanic ID - TRISH MCBC W/PLT COUNT & AUTO [id number] 06:59:00 Test Item Value Reference Range Interpretation [...] 2801) FL, FLUORO, NON-SPECIFIC, UP TO 1 [id number] 20:25:00Reason for exam:- >Bilateral retrograde [facility]elogram [facility] : 1980 Sex: FFINAL REPORT Examination: Retrograde pyelography 14 fluoroscopic spot views were obtained during the procedure by the ordering service. Images are nondiagnostic as no radiologist was present at the time of imaging. Fluoroscopic time was 4.1 minutes. Please see the procedure report for details. Signed: Jameel Frye MDReport Verified Date/Time: 05/17/2020 20:25:52 PROTHROMBIN TIME/[id number] 08:16:00 Test Item Value Reference Range Interpretation Comments PROTIME (MIKA) (test code = 13.4 seconds 11.9-14.2 759) INR (MIKA) (test code = 370) 1.05 <=5.90 Effective 12/10/2018: PT Reference Range ChangeNew: 11.9-14.2 Previous: 11.7- 14.7RECOMMENDED COUMADIN/WARFARIN INR THERAPY RANGESSTANDARD DOSE: 2.0-3.0 Includes: PROPHYLAXIS for venous thrombosis, systemic embolization; TREATMENT for venous thrombosis and/or pulmonary embolus.HIGH RISK: Target INR is2.5-3.5 for patients wiht mechanical heart valves.[id number] 08:16:00 Test Item Value Reference Range Interpretation Comments PARTIAL THROMBOPLASTIN TIME 29.9 seconds 22.5-36.0 (BEAKER) (test code = 760) SCREEN, [id number] 08:10:00 Test Item Value Reference Range Interpretation Comments TEST URINE (BEAKER) (test Negative code = 583) HEPATIC FUNCTION [id number] 07:49:00 Test Item Value Reference Range Interpretation [...] (test code = 40 U/L 6-55 347) Wiring Mechanic ID - ADMINSARS-COV2/RT-PCR ([facility])2020-05-17 07:32:00 Test Item Value Reference Range Interpretation Comments SARS-COV2/RT-PCR (test Negative Not Detected, Negative, code = 4517408) See external report for linked test SARS-COV-2 PERFORMING LAB [facility] (test code = 9166920) Negative result for this test determines that [...] the Gutierres SARS-CoV-2 assay.Fact Sheet for Healthcare Providers:https://www.Zursh.gutierres/meri/ NG_TOHH-BqC-3_YHW_Kjwc_Mjhpn_31-946032.pdfFact Sheet for Healthcare Patients:https://www.Zursh.[employer] roxana/meri/LA_HGOY-PtT-2_Hpailiu_Twbn_Xkbed_VX_35-880883J7.pdfPerforming Laboratory:[address] [address] BASIC METABOLIC [id number] 05:56:00 Test Item Value Reference Range Interpretation [...] S NOT APPLICABLE FOR DIALYSIS PATIEN TS. Wiring Mechanic ID - [id number] 05:56:00 Test Item Value Reference Range Interpretation Comments MAGNESIUM (BEAKER) (test code = 1.7 mg/dL 1.6-2.6 627) Wiring Mechanic ID - [id number] 05:56:00 Test Item Value Reference Range Interpretation Comments PHOSPHORUS (BEAKER) (test code = 3.3 mg/dL 2.3-4.7 604) Wiring Mechanic ID - ADMINCALCIUM, [id number] 05:45:00 Test Item Value Reference Range Interpretation Comments CALCIUM IONIZED (BEAKER) (test 1.41 mmol/L 1.12-1.27 H code = 698) PH, BLOOD (BEAKER) (test code = 7.35 1810) CBC W/PLT COUNT & AUTO [id number] 05:36:00 Test Item Value Reference Range Interpretation [...] PERCENT (BEAKER) (test code = 2801) CT, [id number] 22:40:00Pt is premedicated for iodine allergy, To be scheduled for 04/15/20 at 1300.Unlisted Reason for Exam - Click Yes and Enter Reason Below->NoPlease specify:->Liver [facility]: ERROL MAGALLANES RANJAN : 1980 Sex: FFINAL REPORT CT, [...] position of bilateral ureteral stents. Signed: Duke Tadeo MDReport Verified Date/Time: 05/16/2020 22:40:32 Reading Location: [address] Transitional Reading Room CT abdomen/pelvis without & with IV [id number] 22:40:00Interface, External Ris In - 05/16/2020 10:42 [...] position of bilateral ureteral stents. Signed: Duke Tadeoeport Verified Date/Time: 05/16/2020 22:40:32 Reading Location: [address] Transitional Reading [facility] hour [id number] 20:13:00 Test Item Value Reference Range Interpretation Comments Volume, Urine (test 5450 ml code = 3167-4) Calcium, Ur (test 5.9 mg/dL code = 05733-6) Calcium, 24hr Urine 322 See_Comment H [Automa ryanne (test code = 50614-5) messag e] The system which generated this result transmit ryanne reference range : 50 - 300 mg/24 Hr. The reference range was not u sed to interpret th is result as normal/abnormal . ELADIA (test code = ELADIA) Wiring Mechanic ID - AMANDA F Lab Interpretation Abnormal (test code = 32812-6) [facility] 24 HOUR [id number] 20:13:00 Test Item Value Reference Range Interpretation Comments VOLUME, TOTAL (BEAKER) (test 5450 ml code = 1457) CALCIUM URINE (BEAKER) (test 5.9 mg/dL code = 396) CALCIUM, 24HR URINE (BEAKER) 322 mg/24 Hr 50-300 H (test code = 1520) Wiring Mechanic ID Irma PATEL FVITAMIN D, [id number] 06:03:00 Test Item Value Reference Range Interpretation Comments VITAMIN D 25-OH (BEAKER) (test code 7.2 ng/mL 6.6-49.9 = 2764) Effective 04/24/2017: Reference Range ChangeNew: 6.6-49.9 ng/mL Previous: 13.0-47.8 ng/mLRecommended Vitamin D Target Range: 30.0-40.0 ng/mLOperator ID - DBBASIC METABOLIC [id number] 05:56:00 Test Item Value Reference Range Interpretation [...] S NOT APPLICABLE FOR DIALYSIS PATIEN TS. Wiring Mechanic ID - [id number] 05:56:00 Test Item Value Reference Range Interpretation Comments MAGNESIUM (BEAKER) (test code = 1.6 mg/dL 1.6-2.6 627) Wiring Mechanic ID - [id number] 05:56:00 Test Item Value Reference Range Interpretation Comments PHOSPHORUS (BEAKER) (test code = 3.3 mg/dL 2.3-4.7 604) Wiring Mechanic ID - EDASICBC W/PLT COUNT & AUTO [id number] 05:47:00 Test Item Value Reference Range Interpretation [...] PERCENT (BEAKER) (test code = 2801) CALCIUM, [id number] 05:27:00 Test Item Value Reference Range Interpretation Comments CALCIUM IONIZED (BEAKER) (test 1.41 mmol/L 1.12-1.27 H code = 698) PH, BLOOD (BEAKER) (test code = 7.34 1810) BASIC METABOLIC [id number] 06:19:00 Test Item Value Reference Range Interpretation [...] S NOT APPLICABLE FOR DIALYSIS PATIEN TS. Wiring Mechanic ID - [id number] 06:19:00 Test Item Value Reference Range Interpretation Comments MAGNESIUM (BEAKER) (test code = 1.6 mg/dL 1.6-2.6 627) Wiring Mechanic ID - [id number] 06:19:00 Test Item Value Reference Range Interpretation Comments PHOSPHORUS (BEAKER) (test code = 3.2 mg/dL 2.3-4.7 604) Wiring Mechanic ID - EDASICBC W/PLT COUNT & AUTO [id number] 06:07:00 Test Item Value Reference Range Interpretation [...] PERCENT (BEAKER) (test code = 2801) PTH, [id number] 06:00:00 Test Item Value Reference Range Interpretation Comments PARATHYROID HORMONE INTACT (BEAKER) 5.5 pg/mL 8.5-72.5 L (test code = 577) Wiring Mechanic ID - DBCALCIUM, [id number] 05:59:00 Test Item Value Reference Range Interpretation Comments CALCIUM IONIZED (BEAKER) (test 1.35 mmol/L 1.12-1.27 H code = 698) PH, BLOOD (BEAKER) (test code = 7.34 1810) BLOOD [id number] 02:02:00 Test Item Value Reference Range Interpretation Comments CULTURE (BEAKER) (test No growth in 5 days code = 1095) [id number] 05:34:00 Test Item Value Reference Range Interpretation Comments MAGNESIUM (BEAKER) 1.9 mg/dL 1.6-2.6 Specimen slightly (test code = 627) hemolyzed Wiring Mechanic ID - TRISH [id number] 05:34:00 Test Item Value Reference Range Interpretation Comments PHOSPHORUS (BEAKER) 2.6 mg/dL 2.3-4.7 Specimen slightly (test code = 604) hemolyzed Wiring Mechanic ID - TRISH MBASIC METABOLIC [id number] 05:34:00 Test Item Value Reference Range Interpretation [...] S NOT APPLICABLE FOR DIALYSIS PATIEN TS. Wiring Mechanic ID - TRISH MCBC W/PLT COUNT & AUTO [id number] 05:30:00 Test Item Value Reference Range Interpretation [...] PERCENT (BEAKER) (test code = 2801) CALCIUM, [id number] 04:51:00 Test Item Value Reference Range Interpretation Comments CALCIUM IONIZED (BEAKER) (test 1.35 mmol/L 1.12-1.27 H code = 698) PH, BLOOD (BEAKER) (test code = 7.36 1810) BASIC METABOLIC [id number] 06:16:00 Test Item Value Reference Range Interpretation [...] S NOT APPLICABLE FOR DIALYSIS PATIEN TS. Wiring Mechanic ID - EDASICBC W/PLT COUNT & AUTO [id number] 05:21:00 Test Item Value Reference Range Interpretation [...] (BEAKER) (test code = 2801) BASIC METABOLIC [id number] 07:24:00 Test Item Value Reference Range Interpretation [...] S NOT APPLICABLE FOR DIALYSIS PATIEN TS. Wiring Mechanic ID - TRISH MCBC W/PLT COUNT & AUTO [id number] 06:38:00 Test Item Value Reference Range Interpretation [...] (BEAKER) (test code = 2801) BASIC METABOLIC [id number] 05:16:00 Test Item Value Reference Range Interpretation [...] S NOT APPLICABLE FOR DIALYSIS PATIEN TS. Wiring Mechanic ID - PIHUBER [id number] 05:16:00 Test Item Value Reference Range Interpretation Comments MAGNESIUM (BEAKER) (test code = 1.7 mg/dL 1.6-2.6 627) Wiring Mechanic ID - SHANIKA [id number] 05:16:00 Test Item Value Reference Range Interpretation Comments PHOSPHORUS (BEAKER) (test code = 4.4 mg/dL 2.3-4.7 604) Wiring Mechanic ID - SHANIKA LCBC W/PLT COUNT & AUTO [id number] 05:00:00 Test Item Value Reference Range Interpretation [...] PERCENT (BEAKER) (test code = 2801) CT, [id number] 20:37:00Reason for exam:->ABDOMINAL PAINLLQIs the patient ?->UnknownWhat is the patient's sedation requirement?->No SedationCH[facility]Name: [facility] : 1980 Sex: FFINAL REPORT CT, ABDOMEN [...] free pelvic fluid, likely physiologic. Signed: Ky Herrera MDReport Verified Date/Time: 05/09/2020 20:37:06 [facility] AND HOSPITALOMPREHENSIVE METABOLIC [id number] 19:29:00 Test Item Value Reference Range Interpretation [...] S NOT APPLICABLE FOR DIALYSIS PATIEN TS. Wiring Mechanic ID - BSURINALYSIS W/ REFLEX URINE [id number] 19:22:00 Test Item Value Reference Range Interpretation [...] 1574) Rare SOURCE(BEAKER) (test code = 2795) Wiring Mechanic ID - [auto]Wiring Mechanic ID - techPREGNANCY SCREEN, [id number] 19:15:00 Test Item Value Reference Range Interpretation Comments TEST URINE (BEAKER) (test Negative code = 583) CBC W/PLT COUNT & AUTO [id number] 19:08:00 Test Item Value Reference Range Interpretation [...] PERCENT (BEAKER) (test code = 2801) SARS-COV2/RT-PCR ([facility])2020-03-29 16:15:00 Test Item Value Reference Range Interpretation Comments SARS-COV2/RT-PCR (test Negative Not Detected, Negative, code = 0317351) See external report for linked test SARS-COV-2 PERFORMING LAB [facility] RAEANN (test code = 8125106) Negative result for this test determines that [...] 564(g) of the Act.Fact Sheet for Healthcare Providers:https://www.Artsyidel.com/sites/default/files/product/documents/Fact_Shee s_OP_Qhxhqiumq_Adxg_GISF-NjS-9.pdfFact Sheet for Healthcare Patients:https://www.Utopia.com/sites/default/files/product/ documents/Yykt_Mdrna_Atgbqafi_Mymt_GETR-HxU-8.pdfPerforming Laboratory:[facility], [place] [address]OFEGG METABOLIC PANEL 2020-03-22 08:54:00 Test Item Value [...] S NOT APPLICABLE FOR DIALYSIS PATIEN TS. Wiring Mechanic ID - JAYY CCBC W/PLT COUNT & AUTO [id number] 04:04:00 Test Item Value Reference Range Interpretation [...] (BEAKER) (test code = 2801) BASIC METABOLIC [id number] 07:29:00 Test Item Value Reference Range Interpretation [...] S NOT APPLICABLE FOR DIALYSIS PATIEN TS. Wiring Mechanic ID - TRISH MCBC W/PLT COUNT & AUTO [id number] 04:59:00 Test Item Value Reference Range Interpretation [...] 2801) FL, FLUORO, NON-SPECIFIC, UP TO 1 [id number] 14:37:00Reason for exam:->CystoscopyFluoroscopic unit utilized for a [...] verified report. 50-59,000 col/mL skin floraBASIC METABOLIC [id number] 08:31:00 Test Item Value Reference Range Interpretation [...] S NOT APPLICABLE FOR DIALYSIS PATIEN TS. Wiring Mechanic ID - AMANDA FCBC W/PLT COUNT & AUTO [id number] 05:44:00 Test Item Value Reference Range Interpretation [...] PERCENT (BEAKER) (test code = 2801) SARS-COV2/RT-PCR ([facility])2020-03-19 17:29:00 Test Item Value Reference Range Interpretation Comments SARS-COV2/RT-PCR (test code Negative Not Detected, Negative, = 9647146) See external report for linked test SARS-COV-2 PERFORMING LAB [facility] (test code = 3561590) Negative results do not preclude SARS-CoV-2 infection [...] of the Act.Fact Sheet for Healthcare Pro viders:https://www.PhilSmile.[employer]/Documents/Xpert%20Xpress%20SARS%20CoV-2/Fact%20Sh eets/740-4722%54GDOJ-SWZ-7%20HEALTHCARE%20PROVIDERS%20FACT%20SHEET.pdfFact Sheet for Healthcare Patients:https://www.C2FO.[employer]/Documents/Xpert%20Xpress%20SARS%20CoV-2/Fact%20Sheets/3023801%20SARS-COV -2%20PATIENT%20FACT%20SHEET.pdfPerforming Laboratory:[facility], [place] [address]IMB, QUANTITATIVE, [id number] 01:48:00 Test Item Value Reference Range Interpretation Comments GONADOTROPIN, CHORIONIC (HCG) QUANT 2 mIU/mL 0-10 (BEAKER) (test code = 649) Non- Females: <10 mIU/mL Females: Gestation Age Reference Range(mIU/mL) 0.2-1 Week 5-50 1-2 Weeks 50-500 2-3 Weeks 100-5,000 3-4Weeks 500-10,000 4-5 Weeks 1,000-50,000 5-6 Weeks 10,000-100,000 6-8 Weeks 15,000-200,000 2-3 Months 10,000-100,000 Wiring Mechanic ID - PIAYA L SCREEN, [id number] 07:07:00 Test Item Value Reference Range Interpretation Comments TEST URINE (BEAKER) (test Negative code = 583) BASIC METABOLIC [id number] 05:05:00 Test Item Value Reference Range Interpretation [...] S NOT APPLICABLE FOR DIALYSIS PATIEN TS. Wiring Mechanic ID - LACBC W/PLT COUNT & AUTO [id number] 04:38:00 Test Item Value Reference Range Interpretation [...] (BEAKER) (test code = 2801) BASIC METABOLIC [id number] 04:55:00 Test Item Value Reference Range Interpretation [...] S NOT APPLICABLE FOR DIALYSIS PATIEN TS. Wiring Mechanic ID - EDASICBC W/PLT COUNT & AUTO [id number] 04:31:00 Test Item Value Reference Range Interpretation [...] PERCENT (BEAKER) (test code = 2801) BLOOD [id number] 02:00:00 Test Item Value Reference Range Interpretation Comments CULTURE (BEAKER) (test No growth in 5 days code = 1095) BLOOD [id number] 02:00:00 Test Item Value Reference Range Interpretation Comments CULTURE (BEAKER) (test No growth in 5 days code = 1095) SARS-COV2/RT-PCR ([facility])2020-03-15 10:57:00 Test Item Value Reference Range Interpretation Comments SARS-COV2/RT-PCR (test Negative Not Detected, Negative, code = 0107591) See external report for linked test SARS-COV-2 PERFORMING LAB [facility] RAEANN (test code = 4899541) Negative result for this test determines that [...] 564(g) of the Act.Fact Sheet for Healthcare Providers:https://www.Utopia.[employer]/sites/default/files/product/documents/Fact_Shee y_EV_Zatlueqzi_Anpd_BHYH-HkD-4.pdfFact Sheet for Healthcare Patients:https://www.Utopia.[employer]/sites/default/files/product/ documents/Ltyf_Prrau_Dnduvyrt_Suhe_GOQD-UjH-1.pdfPerforming Laboratory:[facility], [place] [address]JIC W/PLT COUNT & AUTO [id number] 06:59:00 Test Item Value Reference Range Interpretation [...] (BEAKER) (test code = 2801) BASIC METABOLIC [id number] 06:36:00 Test Item Value Reference Range Interpretation [...] S NOT APPLICABLE FOR DIALYSIS PATIEN TS. Wiring Mechanic ID - DBPT/[id number] 06:28:00 Test Item Value Reference Range Interpretation [...] for patients wiht mechanical heart valves. SCREEN, [id number] 16:39:00 Test Item Value Reference Range Interpretation Comments TEST URINE (BEAKER) (test Negative code = 583) BASIC METABOLIC [id number] 07:32:00 Test Item Value Reference Range Interpretation [...] S NOT APPLICABLE FOR DIALYSIS PATIEN TS. Wiring Mechanic ID - PIAYA LCBC W/PLT COUNT & AUTO [id number] 06:42:00 Test Item Value Reference Range Interpretation [...] (BEAKER) (test code = 2801) BASIC METABOLIC [id number] 04:51:00 Test Item Value Reference Range Interpretation [...] S NOT APPLICABLE FOR DIALYSIS PATIEN TS. Wiring Mechanic ID - TRISH MCBC W/PLT COUNT & AUTO [id number] 04:38:00 Test Item Value Reference Range Interpretation [...] PERCENT (BEAKER) (test code = 2801) Urinalysis w/[id number] 10:11:00 Test Item Value Reference Range Interpretation Comments Color, UA (test code Yellow = 5778-6) Clarity, UA (test Hazy code = 5767-9) Specific [place], UA 1.013 1.001-1.035 (test code = 5811-5) pH, UA (test code = 7.0 5.0-8.0 5803-2) Protein, UA (test 70 mg/dL Negative A code = 13022-6) Glucose, UA (test Negative Negative code = 365) Ketones, UA (test Negative Negative code = 2514-8) Bilirubin, UA (test Negative Negative code = 53190-8) Blood, UA (test code Large Negative A = 49238-6) Nitrite, UA (test Negative Negative code = 5802-4) Leukocytes, UA (test Large Negative A code = 5799-2) Urobilinogen, UA 0.2 mg/dL 0.2-1 (test code = 93141-4) RBC, UA (test code = 1139 See_Comment [Autom ated 07218-9) message] The system which generated this result [...] 2 See_Comment [Automate d (test code = 86464-7) messag e] The system which generated this result transmitted reference range : /HPF. The reference range was not used to interpret this result as normal/abnormal . Specimen Source (test code = 2795) ELADIA (test code = ELADIA) Wiring Mechanic ID - [auto]Wiring Mechanic ID - tech Lab Interpretation Abnormal (test code = 77133-9) [facility] [id number] 10:11:00 Test Item Value Reference Range Interpretation [...] = 516) SOURCE(BEAKER) (test code = 2795) Wiring Mechanic ID - [auto]Wiring Mechanic ID - techType and screen, [id number] 06:29:00 Test Item Value Reference Range Interpretation Comments ABO/RH AUTOMATED (BEAKER) (test O POSITIVE code = 2260) Ab Scrn (test code = 890-4) NEGATIVE [facility] [id number] 05:53:00 Test Item Value Reference Range Interpretation [...] S NOT APPLICABLE FOR DIALYSIS PATIEN TS. Wiring Mechanic ID - EDASICBC W/PLT COUNT & AUTO [id number] 05:27:00 Test Item Value Reference Range Interpretation [...] PERCENT (BEAKER) (test code = 2801) PROTHROMBIN TIME/[id number] 05:23:00 Test Item Value Reference Range Interpretation [...] is2.5-3.5 for patients wiht mechanical heart valves.SARS-COV2/RT-PCR ([facility]) 2020-03-10 23:21:00 Test Item Value Reference Range Interpretation Comments SARS-COV2/RT-PCR (test code Negative Not Detected, Negative, = 1388858) See external report for linked test SARS-COV-2 PERFORMING LAB [facility] (test code = 8146776) Negative results do not preclude SARS-CoV-2 infection [...] of the Act.Fact Sheet for Healthcare Pro viders:https://www.[employer]/Documents/Xpert%20Xpress%20SARS%20CoV-2/Fact%20Sh eets/302-3802%68OCAV-VHI-1%20HEALTHCARE%20PROVIDERS%20FACT%20SHEET.pdfFact Sheet for Healthcare Patients:https://www.[employer]/Documents/Xpert%20Xpress%20SARS%20CoV-2/Fact%20Sheets/302-3801%20SARS-COV -2%20PATIENT%20FACT%20SHEET.pdfPerforming Laboratory:[place] [address], [place] [address]D/S, RENAL, [id number] 22:46:00 Reason for exam:->FEVERFINAL REPORT Ultrasound of [...] medullary nephrocalcinosis cannot be excluded. Signed: Cruzito Little MDReport Verified Date/Time: 03/10/2020 22:46:18 US renal [id number] 22:46:00Interface, External Ris In - 03/10/2020 10:48 [...] medullary nephrocalcinosis cannot be excluded. Signed: Cruzito Little MDReport Verified Date/Time: 03/10/2020 22:46:18 [facility] [id number] 22:36:00 Test Item Value Reference Range Interpretation [...] S NOT APPLICABLE FOR DIALYSIS PATIEN TS. Wiring Mechanic ID - NTPSpecimen slightly lipemicPREGNANCY SCREEN, [id number] 20:16:00 Test Item Value Reference Range Interpretation Comments TEST URINE (BEAKER) (test Negative code = 583) LACTIC ACID, [id number] 19:13:00 Test Item Value Reference Range Interpretation Comments LACTATE BLOOD VENOUS (2) (BEAKER) 0.91 mmol/L 0.50-2.20 (test code = 2872) Wiring Mechanic ID - NTPRAD, ABDOMEN/KUB, 1 VIEW [id number] 19:03:00Reason for exam:->FEVERFINAL REPORT TECHNIQUE: RAD, CHEST, [...] right greater than left.. Signed: Charles Medina [facility] Verified Date/Time: 03/10/2020 19:03:48 Reading Location: [address] Transitional Reading Room RAD, CHEST, 1 VIEW, NON [id number] 19:03:00Reason for exam:->FEVERShould this be performed at [...] MDReport Verified Date/Time: 03/10/2020 19:03:48 Reading Location: [address] Transitional Reading Room XR abdomen / KUB 1 [id number] 19:03:00 Interface, External Ris In - 03/10/2020 [...] MDReport Verified Date/Time: 03/10/2020 19:03:48 Reading Location: [address] Transitional Reading Room [facility] METABOLIC [id number] 17:55:00 Test Item Value Reference Range Interpretation [...] S NOT APPLICABLE FOR DIALYSIS PATIEN TS. Wiring Mechanic ID - NTPURINALYSIS W/ REFLEX URINE [id number] 17:40:00 Test Item Value Reference Range Interpretation [...] 1574) Rare SOURCE(BEAKER) (test code = 2795) Wiring Mechanic ID - [auto]Wiring Mechanic ID - hankCBC W/PLT COUNT & AUTO [...] PERCENT (BEAKER) (test code = 2801) BLOOD [id number] 21:00:00 Test Item Value Reference Range Interpretation Comments CULTURE (BEAKER) (test No growth in 5 days code = 1095) BLOOD [id number] 21:00:00 Test Item Value Reference Range Interpretation Comments CULTURE (BEAKER) (test No growth in 5 days code = 1095) SURGICALLY OBTAINED CULTURE + GRAM [id number] 09:20:00 Test Item Value Reference Range Interpretation [...] negative RESULT (BEAKER) rods (test code = 865272) SURGICALLY OBTAINED CULTURE + GRAM [id number] 09:20:00 Test Item Value Reference Range Interpretation [...] negative RESULT (BEAKER) rods (test code = 207996) SURGICALLY OBTAINED CULTURE + GRAM [id number] 09:20:00 Test Item Value Reference Range Interpretation Comments CULTURE (BEAKER) A From Broth Only (test code = Prevotella bivi a 1095) GRAM STAIN RESULT 4+ WBCs (BEAKER) (test code = 1123) GRAM STAIN RESULT 4+ gram negative (BEAKER) (test rods code = 93633) [id number] 04:43:00 Test Item Value Reference Range Interpretation Comments MAGNESIUM (BEAKER) (test code = 1.8 mg/dL 1.6-2.6 627) Wiring Mechanic ID - EDASIBASIC METABOLIC [id number] 04:43:00 Test Item Value Reference Range Interpretation [...] S NOT APPLICABLE FOR DIALYSIS PATIEN TS. Wiring Mechanic ID - EDASICBC W/PLT COUNT & AUTO [id number] 04:15:00 Test Item Value Reference Range Interpretation [...] H PERCENT (BEAKER) (test code = 2801) STOOL CULTURE + SHIGA [id number] 10:04:00 Test Item Value Reference Range Interpretation [...] H PERCENT (BEAKER) (test code = 2801) [id number] 05:37:00 Test Item Value Reference Range Interpretation Comments MAGNESIUM (BEAKER) (test code = 2.0 mg/dL 1.6-2.6 627) Wiring Mechanic ID - TRISH MBASIC METABOLIC [id number] 05:37:00 Test Item Value Reference Range Interpretation [...] S NOT APPLICABLE FOR DIALYSIS PATIEN TS. Wiring Mechanic ID - TRISH MSTOOL PATH [id number] 11:24:00 Test Item Value Reference Range Interpretation Comments PATHOGEN EXAM CHARGED (BEAKER) (test Done code = 2381) [id number] 07:46:00 Test Item Value Reference Range Interpretation Comments MAGNESIUM (BEAKER) (test code = 2.1 mg/dL 1.6-2.6 627) Wiring Mechanic ID - DBBASIC METABOLIC [id number] 07:46:00 Test Item Value Reference Range Interpretation [...] 697) EGFR (BEAKER) (test 33 mL/min/1.73 ESTIMA YRANNE GFR IS code = 1092) sq m NOT ACCURATE CREATININE CLEARANCE IN PREDICTING GLOMERULAR FILTRATION RATE . ESTIMATED GFR I S NOT APPLICABLE FOR DIALYSIS PATIEN TS. Wiring Mechanic ID - DBVITAMIN D, [id number] 07:30:00 Test Item Value Reference Range Interpretation Comments VITAMIN D 25-OH (BEAKER) (test code 6.2 ng/mL 6.6-49.9 L = 2764) Effective 04/24/2017: Reference Range ChangeNew: 6.6-49.9 ng/mL Previous: 13.0-47.8 ng/mLRecommended Vitamin D Target Range: 30.0-40.0 ng/mLOperator ID - DBTSH/FREE T4 IF [id number] 07:19:00 Test Item Value Reference Range Interpretation Comments THYROID STIMULATING HORMONE 1.404 uIU/mL 0.350-4.940 (BEAKER) (test code = 772) Wiring Mechanic ID - DBCBC W/PLT COUNT & AUTO [id number] 07:03:00 Test Item Value Reference Range Interpretation [...] 0-1 PERCENT (BEAKER) (test code = 2801) C. DIFFICILE GDH [id number] 01:09:00 Test Item Value Reference Range Interpretation Comments CDT TOXIN (test code Negative Negative = [id number]) CDT GDH ANTIGEN (test Negative Negative No ind ication of code = 1542423658) Clostridi um difficile infection and n o colonization. Discontinue ent duke isolation and t herapy. Testing performed by [employer] Rapid Cassette Assay. For GDH, published sensitivity of the assay is 98.7% compared to cytotoxicity testing. For Toxin AB, published sensitivity is 87.8% and specificity 99.4% compared to cytotoxicity testing.Verification of kit performance was done by the [facility] Microbiology Lab prior to clinical use.[id number] 05:03:00 Test Item Value Reference Range Interpretation Comments MAGNESIUM (BEAKER) (test code = 1.9 mg/dL 1.6-2.6 627) Wiring Mechanic ID - EDASIBASIC METABOLIC [id number] 05:03:00 Test Item Value Reference Range Interpretation [...] S NOT APPLICABLE FOR DIALYSIS PATIEN TS. Wiring Mechanic ID - [id number] 04:59:00 Test Item Value Reference Range Interpretation Comments PARTIAL THROMBOPLASTIN TIME 47.6 seconds 22.5-36.0 H (BEAKER) (test code = 760) PROTHROMBIN [id number] 04:58:00 Test Item Value Reference Range Interpretation [...] mechanical heart valves.CBC W/PLT COUNT & AUTO [id number] 04:57:00 Test Item Value Reference Range Interpretation [...] PERCENT (BEAKER) (test code = 2801) FL, TELETYPE OR VARITYPE KEYBOARD OPERATOR IN OR/30 MINUTE [id number] 00:24:46Reason for exam:- >PT HAVING CYSTO/ STENT IN ORFluoroscopic unit utilized for a procedure performed in the OR. No interpretation was requested. Refer to the operative report for findings. Refer to PACS for patient radiation dose information. SARS-COV2/RT-PCR ([facility])2020-02-21 21:52:00 Test Item Value Reference Range Interpretation Comments SARS-COV2/RT-PCR (test code Negative Not Detected, Negative, = [id number]) See external report for linked test SARS-COV-2 PERFORMING LAB [facility] (test code = 3244498) Negative results do not preclude SARS-CoV-2 infection [...] of the Act.Fact Sheet for Healthcare Pro viders:https://www.[employer]/Documents/Xpert%20Xpress%20SARS%20CoV-2/Fact%20Sh eets/302-3802%03KIDB-WDK-7%20HEALTHCARE%20PROVIDERS%20FACT%20SHEET.pdfFact Sheet for Healthcare Patients:https://www.[employer]/Documents/Xpert%20Xpress%20SARS%20CoV-2/Fact%20Sheets/3023801%20SARS-COV -2%20PATIENT%20FACT%20SHEET.pdfPerforming Laboratory:[address], [place] [address]NEMMBDJBR SCREEN, [id number] 21:36:00 Test Item Value Reference Range Interpretation Comments TEST URINE (BEAKER) (test Negative code = 583) COMPREHENSIVE METABOLIC [id number] 20:08:00 Test Item Value Reference Range Interpretation [...] S NOT APPLICABLE FOR DIALYSIS PATIEN TS. Wiring Mechanic ID - AMANDA FLACTIC ACID, [id number] 20:01:00 Test Item Value Reference Range Interpretation Comments LACTATE BLOOD VENOUS (2) (BEAKER) 1.25 mmol/L 0.50-2.20 (test code = 2872) Wiring Mechanic ID - AMANDA FPT/[id number] 20:00:00 Test Item Value Reference Range Interpretation [...] mechanical heart valves.CBC W/PLT COUNT & AUTO [id number] 19:56:00 Test Item Value Reference Range Interpretation [...] code = 2801) URINALYSIS W/ REFLEX URINE [id number] 19:44:00 Test Item Value Reference Range Interpretation [...] 1585) Few SOURCE(BEAKER) (test code = 2795) Wiring Mechanic ID - [auto]Wiring Mechanic ID - techCHEST 2 VIEW*GP*2019-05-07 12:30:41Exam: Chest x-ray 2 viewsHISTORY: SarcoidosisLocation: [id number]:The heart size is normal with diffuse interstitial [...]
[2021-03-03] MEDS ORDERED: HYDROCODONE/APAP 7.5/325 MG TAB ONE (11:30)
--- NOTE | 2021-03-03 11:39 | RAD REPORT ---
EXAM DESCRIPTION: RAD - Shoulder Left 2 View - 03/03/2021 11:26 am CLINICAL HISTORY: PAIN COMPARISON: Chest Single View dated 03/03/2021 TECHNIQUE: Internal and external rotation views of the left shoulder were obtained. FINDINGS: There is no fracture or dislocation. No AC joint separation and no identifiable spurring. Acromial humeral joint space is normal. No soft tissue calcifications at the joint space. No acute or suspicious findings. IMPRESSION: Negative two-view left shoulder examination for acute findings.
--- NOTE | 2021-03-03 11:41 | RAD REPORT ---
EXAM DESCRIPTION: RAD - Chest Single View - 03/03/2021 11:26 am CLINICAL HISTORY: CHEST PAIN COMPARISON: September 2016 TECHNIQUE: AP portable chest image was obtained 03/03/2021 11:26 am . FINDINGS: Lung volumes are low. Linear interstitial stranding is present in the mid and lower lung f ields. Much more pronounced lung parenchymal pattern was seen on the prior examination. Current findi ngs are likely chronic interstitial fibrotic change or post infectious scarring. No definitive acute infiltrate confirmed. Failure and volume overload are not suspected. Heart and vasculature are normal. No measurable pleural effusion and no pneumothorax. No acute bony abnormality seen. No acute aortic findings suspected. IMPRESSION: Lower lung field fibrotic stranding without an acute infiltrate or acute chest finding c onfirmed.
--- NOTE | 2021-03-03 13:22 | ER ---
Nurse's Notes [facility] Name: Rosa M Magallanes Age: 40 yrs Sex: Female : 1980 Arrival Date: 03/03/2021 Time: 10:21 Bed 27 Private MD: Diagnosis: Chest pain, unspecified Presentation: 03/03 10:58 Chief complaint: Patient states: Shoulder and chest pains for week. da3 10:58 Method Of Arrival: Ambulatory da3 11:04 Coronavirus screen: Client denies travel out of the [place] in the last 14 days. Ebola da3 Screen: No symptoms or risks identified at this time. Risk Assessment: Do you want to hurt yourself or someone else? Patient reports no desire to harm self or others. 11:04 Acuity: EUGENIA 3 da3 13:40 Initial Sepsis Screen: Does the patient meet any 2 criteria? No. Patient's initial vg1 sepsis screen is negative. Does the patient have a suspected source of infection? No. Patient's initial sepsis screen is negative. Triage Assessment: 11:05 General: Appears in no apparent distress. uncomfortable, Behavior is calm, cooperative. da3 Historical: - Allergies: 11:02 Amoxicillin; da3 - Immunization history:: Client reports having NOT received the Covid vaccine. Screenin:40 Abuse screen: Denies threats or abuse. Nutritional screening: No deficits noted. vg1 Tuberculosis screening: No symptoms or risk factors identified. Fall Risk None identified. Assessment: 13:38 General: Appears in no apparent distress. uncomfortable, Behavior is calm, cooperative. vg1 Pain: Complains of pain in Left Shoulder Pain currently is 8 out of 10 on a pain scale. Neuro: Level of Consciousness is awake, alert, obeys commands, Oriented to person, place, time, situation. Cardiovascular: Patient's skin is warm and dry. Respiratory: Airway is patent Respiratory effort is even, unlabored. GI: No signs and/or symptoms were reported involving the gastrointestinal system. : No signs and/or symptoms were reported regarding the genitourinary system. EENT: No signs and/or symptoms were reported regarding the EENT system. Derm: Skin is intact, is healthy with good turgor. Musculoskeletal: Range of motion: limited in left shoulder. Vital Signs: 11:01 BP 128 / 98; Pulse 80; Resp 18; Temp 97.8; Pulse Ox 99% on R/A; da3 ED Course: 10:21 Patient arrived in ED. as 11:05 Triage completed. da3 11:07 Marisol Cisneros FNP-C [facility]. kb 11:07 Nadir Carpenter MD is Attending Physician. kb 11:26 Chest Single View XRAY In Process Unspecified. EDMS 11:26 Shoulder Left (2 View) XRAY In Process Unspecified. EDMS 13:32 Vanita Gerardo, RN is Primary Nurse. vg1 13:41 Patient has correct armband on for positive identification. Bed in low position. Call vg1 light in reach. Side rails up X 1. 13:41 Arm band placed on. vg1 13:41 No provider procedures requiring assistance completed. Patient did not have IV access vg1 during this emergency room visit. Administered Medications: 12:11 Drug: [place] (HYDROcodone-acetaminophen) (7.5 mg-325 mg) 1 tabs Route: PO; da3 13:38 Follow up: Response: No adverse reaction vg1 Outcome: 13:21 Discharge ordered by . kb 13:41 Discharged to home ambulatory. vg1 13:41 Condition: stable 13:41 Discharge instructions given to patient, Instructed on discharge instructions, follow up and referral plans. medication usage, Demonstrated understanding of instructions, follow-up care, medications, Prescriptions given X 1. 13:41 Patient left the ED. vg1 Signatures: Dispatcher [employer] EDNC Marisol Cisneros FNP-C FNP-Teressa Santos as Vanita Gerardo, RN RN vg1 Brooks Newell, RN RN da3
--- NOTE | 2021-03-03 13:22 | EDPHYS ---
Physician Documentation [facility] Name: Rosa M Magallanes Age: 40 yrs Sex: Female : 1980 Arrival Date: 03/03/2021 Time: 10:21 Bed 27 Private MD: ED Physician Nadir Carpenter HPI: 03/03 16:30 This 40 yrs old Black Female presents to ER via Ambulatory with complaints of Shoulder kb Pain. 16:30 The patient or guardian complains of decreased range of motion, pain, that is acute, kb tenderness. left shoulder. Context: The problem was sustained at home, resulted from an unknown reason, The patient experiences decreased range of motion, when attempts to raise arm, The patient reports no obvious deformity. Onset: The symptoms/episode began/occurred 6 day(s) ago. Modifying factors: the symptoms are alleviated by nothing. The symptoms are aggravated by movement. Associated signs and symptoms: Pertinent positives: chest pain, Pertinent negatives: abdominal pain, diaphoresis, dyspnea, neck pain, shortness of breath. Severity of symptoms: At their worst the symptoms were moderate, in the emergency department the symptoms are unchanged. Treatment prior to arrival includes: no previous treatment. The patient has not experienced similar symptoms in the past. The patient has been recently seen by a physician:. Pt reports left shoulder pain that radiates to left upper chest. States it started on Saturday. Was seen at [facility] on Saturday and had workup with negative results. States pain continued today so she came here. Pain increases with palpation and movement of arm. Historical: - Allergies: 11:02 Amoxicillin; da3 - Immunization history:: Client reports having NOT received the Covid vaccine. ROS: 16:32 Constitutional: Negative for fever, chills, and weight loss. kb 16:32 MS/extremity: Positive for decreased range of motion, pain, of the left shoulder. 16:32 All other systems are negative. Exam: 16:32 Constitutional: This is a well developed, well nourished patient who is awake, alert, kb and in no acute distress. Head/Face: Normocephalic, atraumatic. ENT: Moist Mucous membranes Cardiovascular: Regular rate and rhythm with a normal S1 and S2. No gallops, murmurs, or rubs. No pulse deficits. Respiratory: Respirations even and unlabored. No increased work of breathing, no retractions or nasal flaring. Skin: Warm, dry with normal turgor. Normal color. Neuro: Awake and alert, GCS 15, oriented to person, place, time, and situation. Moves all extremities. Normal gait. Psych: Awake, alert, with orientation to person, place and time. Behavior, mood, and affect are within normal limits. 16:32 Chest/axilla: Inspection: normal, Palpation: tenderness, that is moderate, of the anterior aspect of left upper chest, that totally reproduces the patient's complaints. 16:32 Musculoskeletal/extremity: Extremities: grossly normal except: noted in the left shoulder: decreased ROM, pain, tenderness, ROM: limited active range of motion due to pain, Circulation is intact in all extremities. Sensation intact. Vital Signs: 11:01 BP 128 / 98; Pulse 80; Resp 18; Temp 97.8; Pulse Ox 99% on R/A; da3 MDM: 11:07 Patient medically screened. kb 16:34 Data reviewed: vital signs, nurses notes. Data interpreted: Pulse oximetry: on room air kb is 99 %. Interpretation: normal. Counseling: I had a detailed discussion with the patient and/or guardian regarding: the historical points, exam findings, and any diagnostic results supporting the discharge/admit diagnosis, radiology results, the need for outpatient follow up, a family practitioner, to return to the emergency department if symptoms worsen or persist or if there are any questions or concerns that arise at home. 03/03 11:07 Order name: Chest Single View XRAY; Complete Time: 11:42 kb 03/03 11:07 Order name: Shoulder Left (2 View) XRAY; Complete Time: 11:40 kb 03/03 12:17 Order name: EKG; Complete Time: 12:17 kb 03/03 12:17 Order name: EKG - Nurse/Tech; Complete Time: 13:37 kb Administered Medications: 12:11 Drug: [place] (HYDROcodone-acetaminophen) (7.5 mg-325 mg) 1 tabs Route: PO; da3 13:38 Follow up: Response: No adverse reaction vg1 Disposition: 19:30 Co-signature as Attending Physician, Nadir Carpenter MD I agree with the assessment and kdr plan of care. Disposition Summary: 03/03/21 13:21 Discharge Ordered Location: Home kb Condition: Stable kb Diagnosis - Chest pain, unspecified kb Followup: kb - With: Emergency Department - When: As needed - Reason: Worsening of condition Followup: kb - With: Private Physician - When: 2 - 3 days - Reason: Recheck today's complaints, Continuance of care, Re-evaluation by your physician Discharge Instructions: - Discharge Summary Sheet kb - Chest Wall Pain, Euko-hy-Qwpe kb Forms: - Medication Reconciliation Form kb - Thank You Letter kb - Antibiotic Education kb - Prescription Opioid Use kb Prescriptions: - Diclofenac Sodium 75 mg Oral tablet,delayed release (DR/EC) - take 1 tablet by ORAL route 2 times per day As needed; 30 tablet; Refills: 0, kb Product Selection Permitted Signatures: Dispatcher [employer] EDMS Marisol Cisneros, KATHERINE MARIANO-Nadir Webster MD MD [facility] Brooks Newell, ARY RN da3 Vanita Gerardo RN vg1 Corrections: (The following items were deleted from the chart) 13:21 13:21 Coronavirus infection, unspecified kb kb
[2021-03-03 14:22] VITALS: BP 128/98; TEMP 97.8; O2SAT 99
--- NOTE | 2021-03-05 10:44 | EKG ---
Test Date: 2021-03-03 Test Time: 13:13:00 Crew Person: JONATHON MEASUREMENT RESULTS: Intervals: Rate: 71 RI: 146 QRSD: 72 QT: 372 QTc: 404 [place]: P: 48 RI: 146 QRS: 63 T: 40 INTERPRETIVE STATEMENTS: Normal sinus rhythm Normal ECG Compared to ECG 10/18/2020 13:08:40 No significant changes Electronically Signed On 03-05-21 10:40:15 CDT by Mikel Mtz
== END 2021-03-03 13:41 | disposition home or self-care (01) ==
LOC: ER 10:19
DX: R07.9 Chest pain, unspecified (principal); Z88.1 Allergy status to other antibiotic agents
CPT/HCPCS: 71045; 93005; 99283

== ENCOUNTER 2022-01-18 10:15 | Emergency (ER) | payer BC, OTHER ==
[2022-01-18 10:47] LABS: Absolute Lymphocytes (CBC) 0.8 K/uL (0.7-4.9); Hematocrit 39.6 % (36.0-45.0); Lymphocytes % 16.5 % (15.3-44.8); MCV 69.3 fL (80-100); MPV 8.1 fL (7.6-11.3); RBC Red Blood Cell Count 5.72 M/uL (3.86-4.86)
[2022-01-18] MEDS ORDERED: ONDANSETRON 4 MG/2 ML VIAL ONE (10:51)
[2022-01-18] MEDS ORDERED: MORPHINE 4 MG/ML SYR ONE (10:51)
[2022-01-18 11:12] LABS: Bilirubin Total 0.6 mg/dL (0.2-1.0); Potassium 3.9 mmol/L (3.5-5.1); Protein, Total 7.6 g/dL (6.4-8.2)
[2022-01-18 11:25] LABS: Urine Blood Trace-intact (Negative); Urine Glucose Negative (Negative); Urine Protein Negative (Negative); Urine Specific Gravity 1.015 (1.005-1.030); Urine pH 5.5 (5.0-7.0)
[2022-01-18 11:32] LABS: Anisocytosis 1+; Blood Morphology Comment NOTED (NOT SEEN); Platelet Estimate ADEQ; White Blood Cell Scan OK (OK)
--- NOTE | 2022-01-18 11:48 | RAD REPORT ---
EXAM DESCRIPTION: CT - Stone Protocol - 01/18/2022 11:21 am CLINICAL HISTORY: flank pain COMPARISON: Abdomen Pelvis Wo Contrast dated 03/16/2021 TECHNIQUE: Axial 3 mm thick images were obtained without oral or IV contrast. The tuzwd-sr-ejbi span s the entirety of the system including uppermost abdomen and lung bases. All CT scans are performed using dose optimization technique as appropriate and may include automated exposure control or mA/KV adjustment according to patient size. FINDINGS: No hydronephrosis is present and no obstructing ureteral calculi. There are several calcif ications in the abdomen and pelvis that are in proximity to the ureter but cannot be placed within th e lumen. The patient has numerous nonobstructing bilateral calyx calculi varying slightly in size in positioning since March 2021 imaging. No suspicious renal masses. Isodense masses and pyelonephri tis are not excluded on a stone protocol CT scan. No significant adrenal finding. No urinary bladder suspicious finding. Uterus and ovaries show no suspicious findings. Imaged portions of the liver, spleen and pancreas show no suspicious findings on non-contrast imaging . Cholecystectomy clips are seen. No biliary tree dilatation. No suspicious bowel findings. No evidence for acute or chronic appendicitis. No hernia, mass or bulky lymphadenopathy noted. No free air, free fluid or inflammatory stranding. No significant bony abnormality. Lung bases show extensive interstitial thickening similar to March 2021. This is all believed to be chronic fibrotic lung change. IMPRESSION: No hydronephrosis or obstructing calculus seen. Patient has numerous nonobstructing mehrdad x calculi in each kidney very slightly and size, number and positioning from March 2021. No calcifications seen in the ureter or bladder. No acute GI or CREDIT CHECKER process identifiable. No emergent finding seen. Isodense masses and pyelonephritis are not excluded on stone protocol technique.
--- NOTE | 2022-01-18 12:41 | EDPHYS ---
Physician Documentation [facility] Name: Rosa M Magallanes Age: 41 yrs Sex: Female : 1980 Arrival Date: 01/18/2022 Time: 10:16 Bed 15 Private MD: ED Physician Nikunj Mcfarland HPI: 01/18 10:24 This 41 yrs old Black Female presents to ER via Ambulatory with complaints of Possible jmm Kidney Stone. 10:24 The patient presents with abdominal pain. Onset: The symptoms/episode began/occurred jmm gradually, 3 week(s) ago. The symptoms radiate to back. Associated signs and symptoms: Pertinent positives: nausea and vomiting. The symptoms are described as achy, sharp. Modifying factors: The symptoms are alleviated by nothing, the symptoms are aggravated by food. 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 - Social history:: Smoking status: Patient denies any tobacco usage or history of. ROS: 10:24 Constitutional: Negative for fever, chills, and weight loss, Cardiovascular: Negative jmm for chest pain, palpitations, and edema, Respiratory: Negative for shortness of breath, cough, wheezing, and pleuritic chest pain. 10:24 Abdomen/GI: Positive for abdominal pain. 10:24 All other systems are negative. Exam: 10:24 Constitutional: This is a well developed, well nourished patient who is awake, alert, jmm and in no acute distress. Head/Face: atraumatic. Eyes: EOMI, no conjunctival erythema appreciated ENT: Moist Mucus Membranes Neck: Trachea midline, Supple Chest/axilla: Normal chest wall appearance and motion. Cardiovascular: Regular rate and rhythm. No edema appreciated Respiratory: Normal respirations, no respiratory distress appreciated 10:24 Back: Normal ROM Skin: General appearance color normal MS/ Extremity: Moves all extremities, no obvious deformities appreciated, no edema noted to the lower extremities Neuro: Awake and alert Psych: Behavior is normal, Mood is normal, Patient is cooperative and pleasant 10:24 Abdomen/GI: Inspection: abdomen appears normal, Bowel sounds: normal, Palpation: nontender, mild abdominal tenderness, in the epigastric area, left upper quadrant and left lower quadrant. Vital Signs: 10:19 BP 142 / 89; Pulse 93; Resp 16; Pulse Ox 98% on R/A; Weight 112.49 kg; Height 5 ft. 4 ss in. (162.56 cm); Pain 10; 12:53 BP 139 / 86; Pulse 91; Resp 18; Pulse Ox 99% on R/A; ld1 10:19 Body Mass Index 42.57 (112.49 kg, 162.56 cm) ss MDM: 10:24 Patient medically screened. [facility] 12:39 Data reviewed: vital signs, nurses notes. Counseling: I had a detailed discussion with [facility] the patient and/or guardian regarding: the historical points, exam findings, and any diagnostic results supporting the discharge/admit diagnosis, radiology results, the need for outpatient follow up, to return to the emergency department if symptoms worsen or persist or if there are any questions or concerns that arise at home. 01/18 10:25 Order name: CBC with Diff; Complete Time: 11:51 [facility] 01/18 10:25 Order name: CMP; Complete Time: 11:20 [facility] 01/18 10:25 Order name: Lipase; Complete Time: 11:20 [facility] 01/18 10:51 Order name: CBC Smear Scan; Complete Time: 11:51 [facility] 01/18 11:25 Order name: Urine Dipstick-Ancillary; Complete Time: 11:51 [facility] 01/18 10:25 Order name: IV Saline Lock; Complete Time: 10:40 [facility] 01/18 10:25 Order name: Labs collected and sent; Complete Time: 10:40 [facility] 01/18 10:25 Order name: Urine Dipstick-Ancillary (obtain specimen); Complete Time: 11:28 [facility] 01/18 10:25 Order name: Urine Test (obtain specimen); Complete Time: 11:28 [facility] 01/18 10:36 Order name: CT Stone Protocol; Complete Time: 11:51 [facility] Administered Medications: 10:49 Drug: morphine 4 mg Route: IVP; Infused Over: 4 mins; Site: right antecubital; ap3 10:49 Drug: Zofran (Ondansetron) 4 mg Route: IVP; Site: right antecubital; ap3 Disposition: 19:58 Co-signature as Attending Physician, Nikunj Mcfarland DO I was immediately available on-site ms3 in the Emergency Department for consultation in the care of the patient.. Disposition Summary: 01/18/22 12:41 Discharge Ordered Location: Home jm Condition: Stable jmm Diagnosis - Abdominal pain, unspecified jmm - Vomiting jmm Followup: [facility] - With: Ran Chaudhry MD - When: 2 - 3 days - Reason: Recheck today's complaints, Continuance of care, Re-evaluation by your physician Discharge Instructions: - Discharge Summary Sheet jmm - Abdominal Pain, Adult jmm - Vomiting, Adult jmm Forms: - Medication Reconciliation Form jm - Thank You Letter [facility] - Antibiotic Education [facility] - Prescription Opioid Use [facility] Prescriptions: - Pepcid 20 mg Oral Tablet - take 1 tablet by ORAL route every 12 hours for 10 days; 20 tablet; Refills: 0, jmm Product Selection Permitted - dicyclomine 20 mg Oral Tablet - take 1 tablet by ORAL route 4 times per day; 30 tablet; Refills: 0, Product [facility] Selection Permitted Signatures: Dispatcher [employer] EDMS Yahir Lira PA PA jmm Smirch, Shelby, RN RN ss Wilma Reid RN RN ap3 Nikunj Mcfarland DO DO ms3 Corrections: (The following items were deleted from the chart) 10:22 10:22 PMHx: SARCODOSIS; ss ss
--- NOTE | 2022-01-18 12:41 | ER ---
Nurse's Notes [facility] Name: Rosa M Magallanes Age: 41 yrs Sex: Female : 1980 Arrival Date: 01/18/2022 Time: 10:16 Bed 15 Private MD: Diagnosis: Abdominal pain, unspecified;Vomiting Presentation: 01/18 10:19 Chief complaint: Patient states: L flank pain and R upper quadrant pain that has been ss ongoing x 1 month. Pt reports she has a history of sarcoidosis and believes this may be a flare up resulting in liver issues and a kidney stone. Coronavirus screen: Client denies travel out of the [place] in the last 14 days. Ebola Screen: Patient denies exposure to infectious person. Patient denies travel to an Ebola-affected area in the 21 days before illness onset. Initial Sepsis Screen: Does the patient meet any 2 criteria? No. Patient's initial sepsis screen is negative. Does the patient have a suspected source of infection? No. Patient's initial sepsis screen is negative. Risk Assessment: Do you want to hurt yourself or someone else? Patient reports no desire to harm self or others. Onset of symptoms was December 2021. 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 - Social history:: Smoking status: Patient denies any tobacco usage or history of. Screenin:49 Abuse screen: Denies threats or abuse. Nutritional screening: No deficits noted. ap3 Tuberculosis screening: No symptoms or risk factors identified. Fall Risk None identified. Assessment: 10:49 General: Appears in no apparent distress. Behavior is calm, cooperative, appropriate ap3 for age. Pain: Complains of pain in left lower quadrant. Neuro: Level of Consciousness is awake, alert, obeys commands, Oriented to person, place, time, situation, Speech is normal. Cardiovascular: Patient's skin is warm and dry. Respiratory: Airway is patent Respiratory effort is even, unlabored, Respiratory pattern is regular, symmetrical. GI: Bowel sounds present X 4 quads. Abd is soft Abdomen is tender to palpation in left lower quadrant. 11:47 Reassessment: Patient and/or family updated on plan of care and expected duration. Pain ap3 level reassessed. Patient is alert, oriented x 3, equal unlabored respirations, skin warm/dry/pink. 12:53 Reassessment: Patient appears in no apparent distress at this time. Patient and/or ld1 family updated on plan of care and expected duration. Pain level reassessed. Patient is alert, oriented x 3, equal unlabored respirations, skin warm/dry/pink. Vital Signs: 10:19 BP 142 / 89; Pulse 93; Resp 16; Pulse Ox 98% on R/A; Weight 112.49 kg; Height 5 ft. 4 ss in. (162.56 cm); Pain 10/10; 12:53 BP 139 / 86; Pulse 91; Resp 18; Pulse Ox 99% on R/A; ld1 10:19 Body Mass Index 42.57 (112.49 kg, 162.56 cm) ED Course: 10:16 Patient arrived in ED. rg4 10:19 Yahir Lira PA is PHCP. jmm 10:19 Nikunj Mcfarland DO is Attending Physician. jmm 10:21 Triage completed. ss 10:22 Arm band placed on right wrist. ss 10:28 Wilma Reid, ARY is Primary Nurse. ap3 10:41 Inserted saline lock: 20 gauge in right antecubital area, using aseptic technique. ap3 Blood collected. 10:49 Patient has correct armband on for positive identification. Bed in low position. Side ap3 rails up X 1. Side rails up X2. Pulse ox on. NIBP on. Door closed. Noise minimized. 11:23 CT Stone Protocol In Process Unspecified. EDMS 12:41 Ran Chaudhry MD is Referral Physician. jmm 12:53 No provider procedures requiring assistance completed. IV discontinued, intact, ld1 bleeding controlled, No redness/swelling at site. Administered Medications: 10:49 Drug: morphine 4 mg Route: IVP; Infused Over: 4 mins; Site: right antecubital; ap3 10:49 Drug: Zofran (Ondansetron) 4 mg Route: IVP; Site: right antecubital; ap3 Medication: 10:50 VIS not applicable for this client. ap3 Outcome: 12:41 Discharge ordered by . deepa 12:53 Discharged to home ambulatory. ld1 12:53 Condition: stable 12:53 Discharge instructions given to patient, Instructed on discharge instructions, follow up and referral plans. medication usage, Demonstrated understanding of instructions, follow-up care, medications, Prescriptions given X 2. 12:55 Patient left the ED. ld1 Signatures: Dispatcher [employer] EDMS Yahir Lira PA PA jmm Smirch, Shelby, RN RN Gwen Galaviz rg4 Wilma Reid RN RN ap3 Teresa Soares RN RN ld1 Corrections: (The following items were deleted from the chart) 10:22 10:19 Chief complaint: Patient states: Bilateral flank pain that has been ongoing for ss approximately 1 month. Pt reports she has a history of sarcoidosis and believes this may be a flare up. ss 10:22 10:22 PMHx: SARCODOSIS; ss ss
[2022-01-18 13:56] VITALS: BP 139/86; O2SAT 99
== END 2022-01-18 12:55 | disposition home or self-care (01) ==
LOC: ER 10:15
DX: R10.9 Unspecified abdominal pain (principal); R11.10 Vomiting, unspecified; Z87.442 Personal history of urinary calculi; I10 Essential (primary) hypertension; Z88.1 Allergy status to other antibiotic agents; Z91.048 Other nonmedicinal substance allergy status
CPT/HCPCS: 85025; 36415; 81003; 83690; 80053; 76377; 74176; J2405

== ENCOUNTER 2023-12-22 11:35 | Emergency (ER) | payer OTHER ==
--- NOTE | 2023-12-22 13:12 | RAD REPORT ---
EXAM DESCRIPTION: RAD - Knee Right 3 View - 12/22/2023 12:58 pm CLINICAL HISTORY: DEFORMITY COMPARISON: No comparisons FINDINGS/IMPRESSION: No acute fracture. No malalignment. Tricompartmental degenerative changes. Mild to moderate lateral compartment narrowing with prominent spurring. Mild medial compartment spurring. Moderate patellofemoral compartment spurring.
[2023-12-22] MEDS ORDERED: ACETAMINOPHEN 500 MG TAB ONE (14:48)
--- NOTE | 2023-12-22 14:53 | RAD REPORT ---
EXAM DESCRIPTION: US - Extremity Venous Uni Ltd - 12/22/2023 2:47 pm CLINICAL HISTORY: Swelling COMPARISON: None. TECHNIQUE: Real-time sonographic evaluation of the right lower extremity deep venous system was perf ormed. FINDINGS: Normal compressibility, flow augmentation, phasic flow and spontaneous flow is identified in the right lower extremity deep venous system. No intraluminal filling defects seen. IMPRESSION: No DVT in the right lower extremity.
--- NOTE | 2023-12-22 15:11 | ER ---
Nurse's Notes [facility] Name: Rosa M Magallanes Age: 43 yrs Sex: Female : 1980 Arrival Date: 12/22/2023 Time: 11:35 Bed 10 Private MD: Diagnosis: Right knee swelling;Localized swelling, mass and lump, right lower limb Presentation: 12/21 11:42 Chief complaint: Patient states: right knot in knee that is growing. Coronavirus as6 screen: At this time, the client does not indicate any symptoms associated with coronavirus-19. Ebola Screen: No symptoms or risks identified at this time. Initial Sepsis Screen: Does the patient meet any 2 criteria? No. Patient's initial sepsis screen is negative. Does the patient have a suspected source of infection? No. Patient's initial sepsis screen is negative. Risk Assessment: Do you want to hurt yourself or someone else? Patient reports no desire to harm self or others. Onset of symptoms was December 14, 2023. 11:42 Method Of Arrival: Ambulatory as6 11:42 Acuity: EUGENIA 4 as6 Triage Assessment: 11:46 General: Appears in no apparent distress. Behavior is calm, cooperative. Pain: as6 Complains of pain in right knee. 11:46 Derm: Abscess located on right knee. as6 Historical: - Allergies: 11:44 Iodine; as6 11:44 Amoxicillin; as6 11:44 Codeine; as6 - PMHx: 11:44 Hypertension; Kidney stones; sarcoidosis; as6 11:45 Cirrhosis of liver; as6 - Immunization history:: Adult Immunizations up to date. - Infectious Disease History:: Denies. - Social history:: Smoking status: Patient denies any tobacco usage or history of. Screenin:51 Abuse screen: Denies threats or abuse. Denies injuries from another. Nutritional ss screening: No deficits noted. Tuberculosis screening: Never had TB. Assessment: 14:51 General: Appears in no apparent distress. comfortable, Behavior is calm, cooperative, ss Eating doritos. Requested Tylenol for pain 02/21. JENI Loera notified. Tylenol administered as ordered. Neuro: Level of Consciousness is awake, alert, obeys commands, Oriented to person, place, time, situation. Respiratory: Airway is patent Respiratory effort is even, unlabored. Derm: Skin is dry, Skin temperature is warm. Vital Signs: 11:42 Pulse 79; Resp 18; Temp 97.5; Pulse Ox 98% ; Weight 112.04 kg; Height 5 ft. 4 in. ; as6 Pain 8/10; 11:46 BP 162 / 122; as6 11:42 Body Mass Index 42.40 (112.04 kg, 162.56 cm) as6 11:42 Pain Scale: Adult as6 ED Course: 11:36 Patient arrived in ED. ts1 11:44 Luz Maria Narayan FNP is PHCP. jh7 11:44 Brandi See MD is Attending Physician. jh7 11:44 Triage completed. as6 11:46 Arm band placed on. as6 13:00 XRAY Knee RIGHT 3 view In Process Unspecified. EDMS 14:48 US Extremity Venous Unilateral Ltd In Process Unspecified. EDMS 14:51 Marisel Myers, RN is Primary Nurse. ss 14:51 Patient has correct armband on for positive identification. Bed in low position. Side ss rails up X 1. 15:54 No provider procedures requiring assistance completed. Patient did not have IV access ss during this emergency room visit. Administered Medications: 14:51 Drug: Acetaminophen PO 1000 mg PO once Route: PO; ss 15:55 Follow up: Response: No adverse reaction ss Medication: 14:51 VIS not applicable for this client. ss Outcome: 15:11 Discharge ordered by . [facility] 15:54 Discharged to home ambulatory, 15:54 Condition: good 15:54 Discharge instructions given to patient, Instructed on discharge instructions, follow up and referral plans. Demonstrated understanding of instructions, follow-up care, 15:55 Patient left the ED. ss Signatures: Dispatcher [employer] EDMS Marisel Myers, ARY MCALLISTER Isaiah Marin RN RN as6 Luz Maria Narayan FNP FNP [facility] Suzanne Xiao PAS PAS ts1
--- NOTE | 2023-12-22 15:12 | EDPHYS ---
Physician Documentation [facility] Name: Rosa M Magallanes Age: 43 yrs Sex: Female : 1980 Arrival Date: 12/22/2023 Time: 11:35 Bed 10 Private MD: ED Physician Brandi See HPI: 12/21 11:42 This 43 yrs old Black Female presents to ER via Ambulatory with complaints of Knee jh7 Injury, Knot on side of knee, toes tingling. 11:42 Onset: The symptoms/episode began/occurred 1 month(s) ago. 43-year-old female with a jh7 past medical history of hypertension, cirrhosis of the liver, and sarcoidosis presents to the ER complaining of a mass on the right side of her right knee. She denies any injury or fever. She reports that the mass is tender and worsens with palpation.. Historical: - Allergies: 11:44 Iodine; as6 11:44 Amoxicillin; as6 11:44 Codeine; as6 - PMHx: 11:44 Hypertension; Kidney stones; sarcoidosis; as6 11:45 Cirrhosis of liver; as6 - Immunization history:: Adult Immunizations up to date. - Infectious Disease History:: Denies. - Social history:: Smoking status: Patient denies any tobacco usage or history of. ROS: 11:42 Constitutional: Per HPI jh7 Exam: 11:42 Musculoskeletal/extremity: ROM: intact in all extremities, full active range of motion, jh7 Circulation is intact in all extremities. Sensation intact. Hard, rounded mass on right knee lateral to the patella. There is no erythema, induration, or fluctuance. Mild diffuse swelling of the right upper thigh.. 11:42 Constitutional: This is a well developed, well nourished patient who is awake, alert, jh7 and in no acute distress. Head/Face: Normocephalic, atraumatic. Neck: Trachea midline, no thyromegaly or masses palpated, and no cervical lymphadenopathy. Supple, full range of motion without nuchal rigidity, or vertebral point tenderness. No Meningismus. Cardiovascular: Regular rate and rhythm with a normal S1 and S2. No gallops, murmurs, or rubs. Normal PMI, no JVD. No pulse deficits. Respiratory: Lungs have equal breath sounds bilaterally, clear to auscultation and percussion. No rales, rhonchi or wheezes noted. No increased work of breathing, no retractions or nasal flaring. Abdomen/GI: Soft, non-tender, with normal bowel sounds. No distension or tympany. No guarding or rebound. No evidence of tenderness throughout. Back: No spinal tenderness. No costovertebral tenderness. Full range of motion. Skin: Warm, dry with normal turgor. Normal color with no rashes, no lesions, and no evidence of cellulitis. Neuro: Awake and alert, GCS 15, oriented to person, place, time, and situation. Motor strength 5/5 in all extremities. Sensory grossly intact. Normal gait. Vital Signs: 11:42 Pulse 79; Resp 18; Temp 97.5; Pulse Ox 98% ; Weight 112.04 kg; Height 5 ft. 4 in. ; as6 Pain 8/10; 11:46 BP 162 / 122; as6 11:42 Body Mass Index 42.40 (112.04 kg, 162.56 cm) as6 11:42 Pain Scale: Adult as6 MDM: 11:42 Differential diagnosis: sprain, strain, DVT, abscess, cyst. Data reviewed: vital signs, [facility] nurses notes, radiologic studies, plain films. I considered the following discharge prescriptions or medication management in the emergency department Medications were administered in the Emergency Department. See SEP. 11:44 Patient medically screened. [facility] 14:56 Care significantly affected by the following chronic conditions: Hypertension. [facility] Counseling: I had a detailed discussion with the patient and/or guardian regarding the historical points, exam findings, and any diagnostic results supporting the discharge/admit diagnosis, the need for outpatient follow up, a color laboratory technician, to return to the emergency department if symptoms worsen or persist or if there are any questions or concerns that arise at home. ED course: Utilized bedside ultrasound over mass and fluid collection was seen. Mass presentation is consistent with a cyst, but advised follow-up with dermatology. Will give an antibiotic in the case of infectious process, but likely noninfectious.. 12/21 11:49 Order name: XRAY Knee RIGHT 3 view; Complete Time: 13:15 [facility] 12/21 13:36 Order name: US Extremity Venous Unilateral Ltd; Complete Time: 14:56 [facility] Administered Medications: 14:51 Drug: Acetaminophen PO 1000 mg PO once Route: PO; ss 15:55 Follow up: Response: No adverse reaction ss Disposition Summary: 12/22/23 15:11 Discharge Ordered Notes: Location: Home [facility] Problem: new [facility] Symptoms: are unchanged [facility] Condition: Stable [facility] Diagnosis - Right knee swelling 7 - Localized swelling, mass and lump, right lower limb [facility] Followup: [facility] - With: Private Physician - When: 2 - 3 days - Reason: Recheck today's complaints Discharge Instructions: - Discharge Summary Sheet [facility] - Acute Knee Pain, Adult [facility] Forms: - Medication Reconciliation Form [facility] - Patient Portal Instructions [facility] - Leadership Thank You Letter [facility] Prescriptions: - Doxycycline Hyclate 100 mg Oral tablet - take 1 tablet ORAL route every 12 hours for 7 days; 14 tablet; Refills: 0, [facility] Product Selection Permitted - Tramadol 50 mg Oral Tablet - take 1 tablet ORAL route every 8 hours as needed; 12 tablet; Refills: 0, [facility] Product Selection Permitted Signatures: Dispatcher [employer] EDAL Marisel Myers RN RN Isaiah Marin RN RN as6 Luz Maria Narayan, CLINICAL STAFF PHARMACIST CLINICAL STAFF PHARMACIST [facility] Corrections: (The following items were deleted from the chart) 13:37 13:37 Extremity Venous Uni Ltd+[email or web address] ordered. EDAL EDAL 16:47 11:42 Musculoskeletal/extremity: ROM: intact in all extremities, full active range of 7 motion, Circulation is intact in all extremities. Sensation intact. [facility] 16:50 11:42 Musculoskeletal/extremity: ROM: intact in all extremities, full active range of 7 motion, Circulation is intact in all extremities. Sensation intact. Hard, rounded mass on right knee lateral to the patella. There is no erythema, induration, or fluctuance.. jh7
[2023-12-22 16:18] VITALS: BP 162/122; TEMP 97.5; O2SAT 98
== END 2023-12-22 15:55 | disposition home or self-care (01) ==
LOC: ER 11:35
DX: R22.41 Localized swelling, mass and lump, right lower limb (principal)
CPT/HCPCS: 93971; 99283

== ENCOUNTER 2025-03-06 15:38 | Emergency (ER) | payer OTHER ==
[2025-03-06] MEDS ORDERED: HYDROCODONE/APAP 5/325 MG TAB ONE (16:10)
[2025-03-06] MEDS ORDERED: KETOROLAC 30 MG/ML INJ ONE (16:10)
--- NOTE | 2025-03-06 17:02 | RAD REPORT ---
EXAMINATION: Ankle Right 3 View CLINICAL INDICATION: Female, 44 years old. PAIN COMPARISON: No prior exam. FINDINGS: No acute fracture. No malalignment/dislocation. Plantar aspect calcaneal spur. Other: n/a IMPRESSION: No acute osseous abnormality.
--- NOTE | 2025-03-06 17:04 | RAD REPORT ---
EXAM: Foot Right 3 View HISTORY: Pain;Swelling COMPARISON: None FINDINGS: Bones: No acute fracture identified. Alignment:No significant malalignment. Degenerative changes:Plantar aspect calcaneal spur. Other: n/a IMPRESSION: No acute osseous abnormality.
--- NOTE | 2025-03-06 17:18 | EDPHYS ---
Physician Documentation [facility] Name: Rosa M Magallanes Age: 44 yrs Sex: Female : 1980 Arrival Date: 03/06/2025 Time: 15:38 Bed 9 Private MD: ED Physician Chris Bansal HPI: 03/06 16:43 This 44 yrs old Black Female presents to ER via Ambulatory with complaints of Foot dr5 Injury, Ankle Injury. 16:43 The patient presents with pain, swelling, tenderness. The complaints affect the dorsum dr5 of right foot. Onset: The symptoms/episode began/occurred 6 day(s) ago. Patient is a 41-year-old female with history of cirrhosis of liver, hypertension, kidney stones, sarcoidosis coming in with right foot pain right ankle injury that occurred 6 days ago. Patient reports that she thinks she might have twisted her ankle and the pain is getting worse. Patient reports she is able to ambulate with steady gait on her foot. Patient also reports she has bunions to her right feet.. Historical: - Allergies: 15:50 Codeine; iw 15:50 Amoxicillin; iw 15:50 Iodine; iw - PMHx: 15:50 cirrhosis of liver; Hypertension; Kidney stones; sarcoidosis; iw - Infectious Disease History:: Denies. - Social history:: Smoking status: Patient reports the use of cigarette tobacco products, denies chronic smoking, but will smoke occasionally. ROS: 16:43 Constitutional: as per hpi dr5 Exam: 16:43 Constitutional: This is a well developed, well nourished patient who is awake, alert, dr5 and in no acute distress. Head/Face: Normocephalic, atraumatic. Eyes: Pupils equal round and reactive to light, extra-ocular motions intact. Lids and lashes normal. Conjunctiva and sclera are non-icteric and not injected. Cornea within normal limits. Periorbital areas with no swelling, redness, or edema. Neck: Trachea midline, no thyromegaly or masses palpated, and no cervical lymphadenopathy. Supple, full range of motion without nuchal rigidity, or vertebral point tenderness. No Meningismus. Chest/axilla: Normal chest wall appearance and motion. Nontender with no deformity. No lesions are appreciated. Cardiovascular: Regular rate and rhythm with a normal S1 and S2. Normal PMI, no JVD. No pulse deficits. Respiratory: Lungs have equal breath sounds bilaterally, clear to auscultation. No rales, rhonchi or wheezes noted. No increased work of breathing, no retractions or nasal flaring. Abdomen/GI: Soft, non-tender, non-distended Back: No spinal tenderness. No costovertebral tenderness. Full range of motion. Skin: Warm, dry with normal turgor. Normal color with no rashes, no lesions, and no evidence of cellulitis. Neuro: Awake and alert, GCS 15, oriented to person, place, time, and situation. Cranial nerves II-XII grossly intact. Motor strength 5/5 in all extremities. Sensory grossly intact. Cerebellar exam normal. Normal gait. 16:43 Musculoskeletal/extremity: Extremities: grossly normal except: noted in the dorsum of right foot: swelling, tenderness, ROM: no acute changes, intact in all extremities, Circulation is intact in all extremities. Sensation intact. Vital Signs: 15:50 BP 182 / 115; Pulse 75; Resp 16; Temp 98.1; Pulse Ox 100% on R/A; Weight 108.41 kg; iw Height 5 ft. 4 in. (M); 16:15 BP 169 / 111; Pulse 72; Resp 16; Pulse Ox 99% on R/A; iw 15:50 Body Mass Index 41.02 (108.41 kg, 162.56 cm) iw Procedures: 19:35 Splinting: Splint applied to right foot using shamar wrap, applied by myself. Examined by dr5 me, post splint application: neurovascular intact, 2+ distal pulses palpable, brisk capillary refill noted, Patient tolerated well. MDM: 15:41 Medical Screening Exam initiated dr5 19:35 Differential diagnosis: dislocation, open fracture, closed fracture, contusion, dr5 abrasion. Data reviewed: vital signs, nurses notes, radiologic studies, plain films. Consideration of Admission/Observation Escalation of care including admission/observation considered. Escalation considered if patient found to have open fracture. I considered the following discharge prescriptions or medication management in the emergency department I discussed and recommended Over The Counter medications, Medications were administered in the Emergency Department. See MAR. Independent interpretation of the following test(s) in the Emergency Department X-Ray: My interpretation is Independent interpretation of x-ray does not reveal fracture.. Care significantly affected by the following chronic conditions: Liver Disease, Kidney stones, sarcoidosis, hypertension. Care significantly affected by the following Social Determinants of Health: Poor access to healthcare and/or lack of insurance, Poor access to transportation, Problems related to employment. Counseling: I had a detailed discussion with the patient and/or guardian regarding the historical points, exam findings, and any diagnostic results supporting the discharge/admit diagnosis, the presence of at least one elevated blood pressure reading (>120/80) during this emergency department visit, radiology results, the need for outpatient follow up, for definitive care, a family practitioner, a orthopedic surgeon, to return to the emergency department if symptoms worsen or persist or if there are any questions or concerns that arise at home. Medication response: Response to treatment: the patient's symptoms have resolved after treatment, the patient's condition has returned to base line. Special discussion: I have referred the patient to see his PCP for further evaluation of high blood pressure. I discussed with the patient/guardian in detail that at this point there is no indication for admission to the hospital. It is understood, however, that if the symptoms persist or worsen the patient needs to return immediately for re-evaluation. Based on the history and exam findings, there is no indication for further emergent testing or inpatient evaluation. I discussed with the patient/guardian the need to see the orthopedic surgeon for further evaluation of the symptoms. ED course: Patient reports she can see Dr. Ulloa next week. Shamar wrap applied. X-ray was negative for fracture. All question answered. VANGIE recommended and all questions answered.. 03/06 15:55 Order name: Foot Right 3 View XRAY; Complete Time: 17:12 dr5 03/06 15:55 Order name: Ankle Right 3 View XRAY; Complete Time: 17:12 dr5 03/06 17:13 Order name: Shamar Wrap; Complete Time: 17:37 dr5 Administered Medications: 16:27 Drug: HYDROcodone-acetaminophen PO 5 mg-325 mg 2 tabs PO once Route: PO; iw 17:00 Follow up: Response: No adverse reaction iw 16:39 Drug: Ketorolac IM 30 mg IM once Route: IM; Site: left ventrogluteal; iw 17:00 Follow up: Response: No adverse reaction iw 17:42 Drug: Ondansetron PO 4 mg PO once Route: PO; iw 17:50 Follow up: Response: No adverse reaction iw Disposition: 18:19 Co-signature as Attending Physician, Chris Bansal MD I reviewed the patient's care rn provided by the Advanced Practice Provider and agree with the diagnosis and treatment plan. Disposition Summary: 03/06/25 17:18 Discharge Ordered Notes: Location: Home dr5 Condition: Stable dr5 Diagnosis - Pain in right foot dr5 Followup: dr5 - With: Emergency Department - When: As needed - Reason: Worsening of condition Followup: dr5 - With: Private Physician - When: 1 - 2 days - Reason: Recheck today's complaints, Continuance of care, Re-evaluation by your physician Discharge Instructions: - Discharge Summary Sheet dr5 - Foot Pain dr5 Forms: - Medication Reconciliation Form dr5 - Prescription Opioid Use dr5 - Patient Portal Instructions dr5 - Leadership Thank You Letter dr5 Prescriptions: - Ibuprofen 800 mg Oral Tablet - take 1 tablet ORAL route every 12 hours As needed take with food; 20 tablet; dr5 Refills: 0, Product Selection Permitted - Tramadol 50 mg Oral Tablet - take 1 tablet ORAL route every 8 hours as needed; 12 tablet; Refills: 0, dr5 Product Selection Permitted Signatures: Dispatcher [employer] Cece Malone, Chris Mckenna RN, MD MD rn Rhodes, Dustin, INDEPENDENT [employer]IVING INSTRUCTOR-C INDEPENDENT LIVING INSTRUCTOR-Cdr5 Corrections: (The following items were deleted from the chart) 15:55 15:55 Foot Right 3 View+RAD.RAD.BRZ ordered. EDMS EDMS 15:55 15:55 Ankle Right 3 View+RAD.RAD.BRZ ordered. EDMS EDMS
--- NOTE | 2025-03-06 17:18 | ER ---
Nurse's Notes [facility] Name: Rosa M Magallanes Age: 44 yrs Sex: Female : 1980 Arrival Date: 03/06/2025 Time: 15:38 Bed 9 Private MD: Diagnosis: Pain in right foot Presentation: 03/06 15:49 Chief complaint: Patient states: has had issues with her right ankle, then 6 days ago iw she rolled it and now it is swollen and painful. Coronavirus screen: At this time, the client does not indicate any symptoms associated with coronavirus-19. Ebola Screen: No symptoms or risks identified at this time. Initial Sepsis Screen: Does the patient meet any 2 criteria? No. Patient's initial sepsis screen is negative. Does the patient have a suspected source of infection? No. Patient's initial sepsis screen is negative. Risk Assessment: Do you want to hurt yourself or someone else? Patient reports no desire to harm self or others. Onset of symptoms was February 28, 2025. 15:49 Acuity: EUGENIA 4 iw 15:49 Method Of Arrival: Ambulatory iw Historical: - Allergies: 15:50 Codeine; iw 15:50 Amoxicillin; iw 15:50 Iodine; iw - PMHx: 15:50 cirrhosis of liver; Hypertension; Kidney stones; sarcoidosis; iw - Infectious Disease History:: Denies. - Social history:: Smoking status: Patient reports the use of cigarette tobacco products, denies chronic smoking, but will smoke occasionally. Screenin:00 [facility] ED Fall Risk Assessment (Adult) History of falling in the last 3 months, iw including since admission Yes- single mechanical fall (1 pt) Confusion or Disorientation No (0 pts) Intoxicated or Sedated No (0 pts) Impaired Gait No (0 pts) Mobility Assist Device Used No (0 pt) Altered Elimination No (0 pt) Score/Fall Risk Level 0 - 2 = Low Risk Oriented to surroundings, Maintained a safe environment. Abuse screen: Denies threats or abuse. Denies injuries from another. Nutritional screening: No deficits noted. Tuberculosis screening: No symptoms or risk factors identified. Assessment: 17:00 General: Appears in no apparent distress. Behavior is calm, cooperative. Pain: iw Complains of pain in right foot and dorsum of right foot. Neuro: Level of Consciousness is awake, alert, obeys commands, Oriented to person, place, time, situation. Cardiovascular: Patient's skin is warm and dry. Respiratory: Respiratory effort is even, unlabored, Respiratory pattern is regular. Derm: Skin is intact, is healthy with good turgor. Musculoskeletal: Range of motion: limited in right ankle. Vital Signs: 15:50 BP 182 / 115; Pulse 75; Resp 16; Temp 98.1; Pulse Ox 100% on R/A; Weight 108.41 kg; iw Height 5 ft. 4 in. (M); 16:15 BP 169 / 111; Pulse 72; Resp 16; Pulse Ox 99% on R/A; iw 15:50 Body Mass Index 41.02 (108.41 kg, 162.56 cm) iw ED Course: 15:39 Patient arrived in ED. ts1 15:41 Lucas Kothari FNP-C [facility] dr5 15:41 Chris Bansal MD is Attending Physician. dr5 15:49 Cece Conley RN is Primary Nurse. iw 15:50 Triage completed. iw 15:50 Arm band placed on. iw 16:55 Foot Right 3 View XRAY In Process Unspecified. EDMS 16:55 Ankle Right 3 View XRAY In Process Unspecified. EDMS Administered Medications: 16:27 Drug: HYDROcodone-acetaminophen PO 5 mg-325 mg 2 tabs PO once Route: PO; iw 17:00 Follow up: Response: No adverse reaction iw 16:39 Drug: Ketorolac IM 30 mg IM once Route: IM; Site: left ventrogluteal; iw 17:00 Follow up: Response: No adverse reaction iw 17:42 Drug: Ondansetron PO 4 mg PO once Route: PO; iw 17:50 Follow up: Response: No adverse reaction iw Outcome: 17:18 Discharge ordered by . dr5 17:42 Patient left the ED. iw Signatures: Dispatcher [employer] EDMS Cece Conley RN RN iw Suzanne Xiao PAS PAS ts1 Lucas Kothari FNP-C [employer] INSTRUCTOR-Cdr5 Corrections: (The following items were deleted from the chart) 15:52 15:50 BP 182 / 115; Pulse 75bpm; Resp 16bpm; Pulse Ox 100% RA; iw iw
[2025-03-06] MEDS ORDERED: ONDANSETRON 4 MG (ODT) TAB ONE (17:30)
[2025-03-06 18:26] VITALS: TEMP 98.1
[2025-03-06 18:27] VITALS: BP 169/111; O2SAT 99
== END 2025-03-06 17:42 | disposition home or self-care (01) ==
LOC: ER 15:38
DX: M79.671 Pain in right foot (principal)
CPT/HCPCS: 73630; 73610; 96372; 99284; Q0162